=== PATIENT | female | born 1985 | race Caucasian/White ===

== ENCOUNTER 2021-11-22 14:01 | Outpatient (CLI) | payer BC, SELFPAY ==
--- NOTE | 2021-11-22 14:00 | CRLHL7_ITS ---
For Patients: As a result of the Century Cures Act, medical imaging exams and procedure reports are released immediately into your electronic medical record. You may view this report before your referring provider. If you have questions, please contact your health care provider. INDICATION: Dating and viability. LMP 09/26/2021. COMPARISON: None. TECHNIQUE: Real-time mcmahon-scale imaging of the pelvis was performed. FINDINGS: Sonographic imaging demonstrates a single living intrauterine gestation. The embryo has a regular cardiac rate measuring 161 beats per minute. The embryo`s crown-rump length measurement of 1.4 cm corresponds to a gestational age of 7 weeks 4 days with a sonographic due date of 07/07/2022. There is a normal-appearing yolk sac. The placenta has not yet developed. There is a 1.9 x 0.6 x 0.4 cm hypoechoic collection along the left aspect of the gestational sac compatible with a subchorionic hemorrhage. The cervix appears closed. The right ovary measures 4.3 x 2.4 x 3.9 cm and the left ovary measures 3.4 x 1.4 x 1.6 cm. Blood flow is seen within both ovaries. There are two anechoic cysts in the right ovary measuring 1.4 cm and 2.7 cm in size. Trace free fluid in the right adnexa. IMPRESSION: 1. Single living intrauterine gestation with crown rump length 1.4 cm which corresponds to a gestational age of 7 weeks 4 days with a sonographic due date of 07/07/2022. 2. The clinical gestational age by LMP is 8 weeks 1 day. 3. Small subchorionic hemorrhage. Dictated by Jody Glaser MD @ 11/22/2021 6:13:43 PM (Electronically Signed)
[2021-11-22 18:07] LABS: Hepatitis B Surface Antigen* Negative (Negative)
[2021-11-22 18:17] LABS: HIV 1/2/P24 Combo Screen* Negative (Negative)
[2021-11-22 18:25] LABS: Hepatitis C Virus Antibody* Negative (Negative)
[2021-11-25 02:38] LABS: Rapid Plasma Reagin (RPR) Non Reactive (Non Reactive)
== END 2021-11-22 14:02 | disposition home or self-care (01) ==
LOC: US 14:04
PROVIDERS: PCP Physician Assistant Medical; Visit Provider Registered Nurse
DX: Z34.91 Encounter for supervision of normal pregnancy, unspecified, first trimester (principal); O20.9 Hemorrhage in early pregnancy, unspecified; Z3A.08 8 weeks gestation of pregnancy
CPT/HCPCS: 36415; 76817; 86592; 86703; 86706; 86762; 86803; 86850; 86900; 86901; 87086

== ENCOUNTER 2021-12-31 08:00 | Outpatient (CLI) | payer BC, SELFPAY ==
--- NOTE | 2021-12-31 08:45 | CRLHL7_ITS ---
For Patients: As a result of the Century Cures Act, medical imaging exams and procedure reports are released immediately into your electronic medical record. You may view this report before your referring provider. If you have questions, please contact your health care provider. CLINICAL HISTORY: First trimester screening. TECHNIQUE: Real time mcmahon scale imaging of the fetus was performed using a transabdominal approach. FINDINGS: Sonographic imaging demonstrates a single living intrauterine gestation. The fetus demonstrates a regular cardiac rate measuring 159 beats per minute. The crown rump length measurement of 7.8 cm corresponds to a gestation of 13 weeks 6 days which is concordant with the earlier dating ultrasound. A nuchal translucency measurement of 1.3 mm was obtained for screening purposes. IMPRESSION: Nuchal translucency measurement obtained for first trimester screen. Dictated by Cassius Wilkins MD @ 12/31/2021 10:03:04 AM (Electronically Signed)
--- OUTSIDE RECORDS SUMMARY | 2022-01-03 08:22 | XMS_ITS | Encounter Summary ---
:1985 Author Organization [facility] Address [address] [place] [address] Care Team Providers Name Role Phone Sarah Montgomery PA-C Primary Care Provider Sarah Montgomery PA-C Unavailable [phone] Sarah Montgomery PA-C Unavailable [phone] Encounter Details Date Type Department Care Team Description 05/05/2018 Travel Social History Tobacco Use Types Packs/Day Years Used Date Former Smoker Smokeless Tobacco: Never Used Comments: quit about 2013 Alcohol Use Standard Drinks/Week Comments Yes 0 (1 standard drink = 0.6 oz pure alcoho l) weekends-not more than 4 Alcohol Habits Answer Date Recorded How often do you have a drink containing Not asked alcohol? How many drinks containing alcohol do you have Not asked on a typical day when you are drinking? How often do you have six or more drinks on Not asked one occasion? Comment: weekends-not more than 4 04/08/2018 Sex Assigned at Date Recorded Not on file documented as of this encounter Plan of Treatment Not on filedocumented as of this encounter Visit Diagnoses Not on filedocumented in this encounter Additional Health Concerns Assessment Noted Time PHQ-9 Depression Total Score: 1 09/22/2017 7:43 AM CDT documented as of this encounter Care Teams Trophy Assembler Relationship Specialty Start Date End Date Sarah Montgomery, PCP - General Family Practice 10/21/11 [address] [address] [place] [address] Sarah Montgomery, PCP - Assigned PCP 07/27/18 [address] [address] [place] [address] Sarah Montgomery, Assigned PCP 03/15/17 10/17/20 [address] [address] [place] [address] documented as of this encounter
--- OUTSIDE RECORDS SUMMARY | 2022-01-03 08:22 | XMS_ITS | Encounter Summary ---
:1985 Author Organization [facility] Address [address] [place] [address] Care Team Providers Name Role Phone Sarah Montgomery PA-C Primary Care Provider Sarah Montgomery PA-C Unavailable Sarah Montgomery PA-C Unavailable Reason for Visit Reason Comments Consult Follow-up after SVT ablatio n done Encounter Details Date Type Department Care Team Description 05/05/2018 Office Visit [facility] [place]; LDL GOAL LESS Heart WORK CHECKER THAN 160 (Primary Dx) Care-[address] [place] [id number] [place] [address] [address] [place] [address] [place], [place] [phone] (Work) [phone] Social History Tobacco Use Types Packs/Day Years [...] on file documented as of this encounter Last Filed Vital Signs Vital Sign Reading Time Taken Comments Blood Pressure 113/80 05/05/2018 12:36 PM RN CVOR Pulse 76 05/05/2018 12:36 PM RN CVOR Temperature - - Respiratory Rate - - Oxygen Saturation - - Inhaled Oxygen Concentration - - Weight 70.8 kg (156 lb) 05/05/2018 12:36 PM RN CVOR Height 167.6 cm (5' 6) 05/05/2018 12:36 PM RN CVOR Body Mass Index 25.18 05/05/2018 12:36 PM RN CVOR documented in this encounter Progress Quita Matthew APRN CNP - 05/05/2018 12:30 PM CST HPI: Rhonda Tamayo is a 32 year old female who is a patient of Dr. 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 In the past, shehad palpitations with a documented episode of regular narrow QRS tachycardia on an event monitor (11/2017). Today Rhonda Tamayo presents feeling good after her ablation which was 1 month ago. She states she does have intermittent palpitations which lasted a few seconds. She has not had any recurrence of tachycardia. Her femoral access site has healed nicely. She denies any chest discomfort or any femoral access discomfort. 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 She states she has recovered nicely from her ablation and denies any palpitations associated with extensive tachycardia. We did discuss that if the current palpitations that she has continue she can contact us or her PCP. At present her current palpitations last only seconds and overall do not bother h er. Plan: ?? Follow-up with cardiology as needed Patient expresses understanding and agreement with the plan. ?? I appreciate the chance to help with Rhonda Tamayo Please let me know if you have any questions or concerns. Quita Thacker APRN, WORK CHECKER This note was completed in part using [employer] voice recognition software. Although reviewed after completion, some word and grammatical errors may occur. Orders Placed This Encounter Procedures ??? EKG 12-lead complete w/read - Clinics (performed today) Orders Placed This Encounter Medications ??? [place]-3 Fatty Acids (FISH OIL) 500 MG CAPS Medications Discontinued During This Encounter Medication Reason ??? LORazepam (ATIVAN) 1 MG tablet Encounter Diagnosis Name Primary? CARDIOVASCULAR SCREENING; LDL GOAL LESS THAN 160 Yes CURRENT MEDICATIONS: Current Outpatient Medications Medication Sig Dispense Refill ??? fluticasone (FLONASE) 50 MCG/ACT spray [place] 1-2 sprays into both nostrils daily 16 g 0 ??? [place]-3 Fatty Acids (FISH OIL) 500 MG CAPS ??? valACYclovir (VALTREX) 500 MG tablet Take 1 tablet (500 mg) by mouth 2 times daily 6 tablet 3 ALLERGIES Allergies Allergen Reactions ??? Seasonal Allergies PAST MEDICAL HISTORY: Past Medical History: Diagnosis Date ??? abnormal pap 06/02, 09/2011 '09 HSIL, colp neg, '12:ELZBIETA I ??? Herpes valtrex ??? SVT (supraventricular tachycardia) (H) PAST SURGICAL HISTORY: Past Surgical History: Procedure Laterality Date ??? EP ABLATION SVT Inducible typical AVNRT.SVT ablation FAMILY HISTORY: Family History Problem Relation Age of Onset ??? Heart Disease Father [place] at age 42 ??? Depression Father ??? Cancer Maternal Grandmother cervical and uterine ??? Breast Cancer Maternal Grandmother dx at age 62 ??? Diabetes Maternal Grandfather ??? Diabetes Paternal Grandfather ??? Cancer - colorectal No family hx of SOCIAL HISTORY: Social History Socioeconomic History ??? Marital status: Single Spouse name: None ??? Number of children: None ??? Years of education: None ??? Highest education level: None Social Needs ??? Financial resource strain: None ??? Food insecurity - worry: None ??? Food insecurity - inability: None ??? Transportation needs - medical: None ??? Transportation needs - non-medical: None Occupational History ??? None Tobacco Use ??? Smoking status: Former Smoker ??? Smokeless tobacco: Never Used ??? Tobacco comment: quit about 2013 Substance and Sexual Activity ??? Alcohol use: Yes Comment: weekends-not more than 4 ??? Drug use: No ??? Sexual activity: Yes Partners: Male control/protection: None Other Topics Concern ??? Parent/sibling w/ CABG, [place] or angioplasty before 65F 55M? No Social History Narrative Single, lives with boyfriend. 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 Constitutional: cooperative, alert and oriented, well developed, well nourished, in no acute distress Skin: warm and dry to the touch, no apparent skin lesions or masses noted Head: normocephalic, no masses or lesions Eyes: pupils equal and round, conjunctivae and lids unremarkable, sclera white, no xanthalasma, EOMSintact, no nystagmus ENT: no pallor or cyanosis, dentition good Neck: carotid pulses are full and equal bilaterally, JVP normal, no carotid bruit Chest: normal breath sounds, clear to auscultation, normal A-P diameter, normal symmetry, normal respiratory excursion, no use of accessory muscles Cardiac: regular rhythm, normal S1/S2, no S3 or S4, apical impulse not displaced, no murmurs, gallops or rubs Abdomen: Vascular: pulses full and equal, no bruits auscultated Extremities and Back: no deformities, clubbing, cyanosis, erythema observed Neurological: no gross motor deficits Recent Lab Results: LIPID RESULTS: Lab Results Component Value Date CHOL 182 12/13/2012 HDL 87 12/13/2012 LDL 86 12/13/2012 TRIG 42 12/13/2012 CHOLHDLRATIO 2.1 12/13/2012 LIVER ENZYME RESULTS: Lab Results Component Value Date AST 9 10/05/2014 ALT 20 10/05/2014 CBC RESULTS: Lab Results Component Value Date WBC 5.8 04/08/2018 RBC 4.51 04/08/2018 HGB 14.1 04/08/2018 HCT 41.1 04/08/2018 MCV 91 04/08/2018 MCH 31.3 04/08/2018 MCHC 34.3 04/08/2018 RDW 12.6 04/08/2018 PLT 283 04/08/2018 BMP RESULTS: Lab Results Component Value Date NA 137 04/08/2018 POTASSIUM 3.4 04/08/2018 CHLORIDE 105 04/08/2018 CO2 26 04/08/2018 ANIONGAP 6 04/08/2018 GLC 74 04/08/2018 BUN 11 04/08/2018 CR 0.80 04/08/2018 GFRESTIMATED 84 04/08/2018 GFRESTBLACK >90 04/08/2018 RODRIGO 8.3 (L) 04/08/2018 A1C RESULTS: No results found for: A1C INR RESULTS: No results found for: INR CC No referring provider defined for this encounter. CVOR documented in this encounter Plan of Treatment Not on filedocumented as of this encounter Procedures Procedure Name Priority Date/Time Associated Diagnosis Comme nts EKG 12-LEAD COMPLETE Routine 05/05/2018 CARDIOVASCULAR SCREE POP; Results for this W/READ - CLINICS LDL GOAL LESS THAN 160 p rocedure are in the results section . documented in this encounter Results EKG 12-lead complete w/read - Clinics (performed today) (05/05/2018) Narrative This result has an attachment that is no t available. Quita Thacker APRN, CNP ECG ORDERABLES documented in this encounter Visit Diagnoses Diagnosis CARDIOVASCULAR SCREENING; LDL GOAL LESS THAN 160 - Primary documented in this encounter Additional Health Concerns Assessment Noted Time PHQ-9 Depression Total Score: 1 09/22/2017 7:43 AM CDT documented as of this encounter Care Teams Mobility Architect Manager Relationship Specialty Start Date End Date Sarah Montgomery PCP - General Family Practice 10/21/11 [address] [address] [place] [address] Sarah Montgomery PCP - Assigned PCP 07/27/18 [address] [address] [place] [address] Sarah Montgomery, Assigned PCP 03/15/17 10/17/20 [address] [address] [place] [address] documented as of this encounter
--- OUTSIDE RECORDS SUMMARY | 2022-01-03 08:22 | XMS_ITS | Encounter Summary ---
:1985 Author Organization [facility] Address [facility] [place] [address] Care Team Providers Name Role Phone Sarah Montgomery PA-C Primary Care Provider [phone] Sarah Montgomery PA-C Unavailable [phone] Sarah Montgomery PA-C Unavailable Reason for Visit Reason Comments Irregular Heart Beat review event monitor - Closed Specialty Diagnoses / Procedures Referred By Contact Refer red To Contact Diagnoses SVT (supraventricular tachycardia) (H) [facility] [address] [facility] [address] [place] [phone] Referral ID Status Reason Start Date Expiration Date Visits Requ ested Visits Authorized [id number] Closed 01/06/2018 01/06/2019 1 1 Encounter Details Date Type Department Care Team Description 01/07/2018 Office Visit [facility] IpMorris MD [address] [place] [address] SVT Heart Clinic Oleg Lang MD [address] [place] [place] [address] (supraventricular [address] [facility] tachycard ia) (H) [facility] [address] [place] [phone] Social History Tobacco Use Types Packs/Day Years Used Date Former Smoker Smokeless Tobacco: Never Used Alcohol Use Standard Drinks/Week Comments Yes 0 (1 standard drink = 0.6 oz pure alcoho l) weekends Alcohol Habits Answer Date Recorded How often do you have a drink containing alcohol? Not asked How many drinks containing alcohol do you have on a typical Not asked day when you are drinking? How often do you have six or more drinks on one occasion? No t asked Comment: weekends 10/12/2017 Sex Assigned at Date Recorded Not on file documented as of this encounter Last Filed Vital Signs Vital Sign Reading Time Taken Comments Blood Pressure 110/69 01/07/2018 1:03 PM CDT Pulse 84 01/07/2018 1:03 PM CDT Temperature - - Respiratory Rate - - Oxygen Saturation - - Inhaled Oxygen Concentration - - Weight 72.6 kg (160 lb) 01/07/2018 1:03 PM CDT Height 167.6 cm (5' 6) 01/07/2018 1:03 PM CDT Body Mass Index 25.82 01/07/2018 1:03 PM CDT documented in this encounter Progress Notes Oleg Sotelo MD - 01/07/2018 1:58 PM CDT Service Date: 01/07/2018 HISTORY OF PRESENT ILLNESS: It was my pleasure seeing Ms. Rhonda Kirkland for evaluation of SVT. Rhonda is a very pleasant 32-year-old female who came to the clinic today with her [id number] son, Adalberto. She has been referred by Dr. Villafuerte. For the past 2 years, Rhonda has had intermittent palpitation where her heart races for a few minutes. With that she sometimes becomes lightheaded. She has not fainted. She tells me it is an uncomfortable feeling. On one occasion she ended up in the emergency room in [place], but from what I gatherthe tachycardia had terminated by the time she was checked in. Later, she saw Dr. Villafuerte, and Morris ordered an outpatient groundwater monitoring technician. This had documented an episode of regular narrow QRS tachycardia. Episodes of tachycardia occur once per month on average. The patient is otherwise healthy and has nochronic medical conditions. She is a non-smoker and drinks alcohol socially. PHYSICAL EXAMINATION: VITAL SIGNS: Blood pressure 110/69, pulse 84 and regular, weight 72.6 kg, height 167 cm. GENERAL: She is a pleasant, healthy-appearing woman in no distress. HEENT: Normocephalic. NECK: Supple without bruits. LUNGS: Clear. CARDIOVASCULAR: Normal JVP, regular rhythm. No gallop, murmur or rub. ABDOMEN: Soft, nontender. Negative HJR. EXTREMITIES: No clubbing, cyanosis or edema. SKIN: No rash. BACK: No CVA tenderness. NEUROLOGIC: Alert and oriented x3. DIAGNOSTIC STUDIES: I have reviewed the existing diagnostic studies. Her ECG from 10/12/2017 was normal. No delta waves. Her echocardiogram from 11/2017 was normal. Her cardiac event monitor results were as per HPI. Finally, I note that the patient has normal thyroid function, chemistries and CBC. IMPRESSION & PLAN: 1. Paroxysmal supraventricular tachycardia. Ms. Kirkland has had paroxysmal SVT off and on for 3 years. The episodes typically last a few minutes but are significantly symptomatic causing lightheadedness. I went over the pathophysiology of SVT with the patient. I explained that SVT is not life-threatening though I am concerned about her lightheadedness during SVT. For treatment of SVT we discussed 3 options: a. Observation. b. Medical therapy with a daily drug. I would not recommend it in such a young patient. In addition,her blood pressure is soft. c. Catheter ablation of SVT. This is an excellent option that typically provides permanent cure fromSVT. She has a Class I indication for ablation. The likelihood of serious complication with the procedure is 1% to 1.5%. Potential risks include but are not limited to DVT, vascular injury, bleeding, cardiac perforation, phrenic nerve injury, injury to the AV conduction system requiring pacemaker implantation and other unforeseen complications. We had a good discussion. Rhonda was undecided regarding which way she wanted to proceed. She told me she would give the options some thought and call me back if she wishes to schedule catheter ablation or start a medication. I do appreciate the opportunity to be part of her care. OLEG SOTELO MD, FACC cc: [place] [address] MT: RASHAD Name: RHONDA KIRKLAND Account: [id number] : 1985 Service Date: 01/07/2018 Document: [id number] Oleg Sotelo MD - 01/07/2018 1:15 PM CDT HPI and Plan: See dictation No orders of the defined types were placed in this encounter. No orders of the defined types were placed in this encounter. There are no discontinued medications. Encounter Diagnosis Name Primary? SVT (supraventricular tachycardia) (H) CURRENT MEDICATIONS: Current Outpatient Prescriptions Medication Sig Dispense Refill ??? fluticasone (FLONASE) 50 MCG/ACT spray [place] 1-2 sprays into both nostrils daily 16 g 0 ??? LORazepam (ATIVAN) 1 MG tablet Take 1 mg by mouth every 6 hours as needed for anxiety ??? valACYclovir (VALTREX) 500 MG tablet Take 1 tablet (500 mg) by mouth 2 times daily 6 tablet 3 ALLERGIES Allergies Allergen Reactions ??? Seasonal Allergies PAST MEDICAL HISTORY: Past Medical History: Diagnosis Date ??? abnormal pap 06/02, 09/2011 '09 HSIL, colp neg, '12:ELZBIETA I ??? Herpes valtrex PAST SURGICAL HISTORY: Past Surgical History: Procedure Laterality Date ??? NO HISTORY OF SURGERY FAMILY HISTORY: Family History Problem Relation Age of Onset ??? HEART DISEASE Father [place] at age 42 ??? Depression Father ??? Cancer Maternal Grandmother cervical and uterine ??? Breast Cancer Maternal Grandmother dx at age 62 ??? Diabetes Maternal Grandfather ??? Diabetes Paternal Grandfather ??? Cancer - colorectal No family hx of SOCIAL HISTORY: Social History Social History ??? Marital status: Single Spouse name: N/A ??? Number of children: N/A ??? Years of education: N/A Social History Main Topics ??? Smoking status: Former Smoker ??? Smokeless tobacco: Never Used ??? Alcohol use Yes Comment: weekends ??? Drug use: No ??? Sexual activity: Yes Partners: Male control/ protection: None Other Topics Concern ??? Parent/Sibling W/ Cabg, [place] Or Angioplasty Before 65f 55m? No Social History Narrative Single, lives with boyfriend. 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 Review of Systems: Skin: Positive for bruising Eyes: Negative ENT: Negative Respiratory: Positive for shortness of breath when heart is racing, feels SOB Cardiovascular: Negative for;chest pain;edema Positive for;fatigue;palpitations;lightheadedness;dizziness Gastroenterology: Positive for nausea Genitourinary: Negative Musculoskeletal: Positive for joint pain;back pain see's chiropacter Neurologic: Negative Psychiatric: Positive for anxiety not dx Heme/Lymph/Imm: Positive for easy bruising;allergies Endocrine: Negative [id number] documented in this encounter Plan of Treatment Not on filedocumented as of this encounter Visit Diagnoses Diagnosis SVT (supraventricular tachycardia) (H) Other specified cardiac dysrhythmias documented in this encounter Additional Health Concerns Assessment Noted Time PHQ-9 Depression Total Score: 1 09/22/2017 7:43 AM CDT documented as of this encounter Care Teams Molder Punch Relationship Specialty Start Date End Date Sarah Montgomery PCP - General Family Practice 10/21/11 [address] [address] [place] [address] Sarah Montgomery, PCP - Assigned PCP 07/27/18 [address] [address] [place] [address] Sarah Montgomery, Assigned PCP 03/15/17 10/17/20 [address] [address] [place] [address] documented as of this encounter
--- OUTSIDE RECORDS SUMMARY | 2022-01-03 08:22 | XMS_ITS | Encounter Summary ---
:1985 Author Organization [facility] Address [address] [place] [address] Care Team Providers Name Role Phone Sarah Montgomery PA-C Primary Care Provider [phone] Sarah Montgomery PA-C Unavailable [phone] Sarah Montgomery PA-C Unavailable [phone] Encounter Details Date Type Department Care Team Description 04/07/2018 [facility] Ryan Bartholomew, RN [address] [place] [address] Social History Tobacco Use Types Packs/Day [...] documented as of this encounter Care Teams Drafter Civil Relationship Specialty Start Date End Date Sarah Montgomery, PCP - General Family Practice 10/21/11 [address] [address] [place] [address] Sarah Montgomery, PCP - Assigned PCP 07/27/18 [address] [address] [place] [address] Sarah Montgomery, Assigned PCP 03/15/17 10/17/20 [address] [address] [place] [address] documented as of this encounter
--- OUTSIDE RECORDS SUMMARY | 2022-01-03 08:22 | XMS_ITS | Encounter Summary ---
:1985 Author Organization [place] Address [facility] [place] [address] Care Team Providers Name Role Phone Sarah Montgomery PA-C Primary Care Provider + [phone] Reason for Visit Reason Comments Urgent Care Cough chest hurts when coughs, run ny nose- 3 days Encounter Details Date Type Department Care Team Description 12/01/[address] [facility] Michelle Patel Viral URI (Primary Dx); Urgent Care Philip Rios PA-C Throat pain [id number] [place] [address] [id number] Social History Tobacco Use Types Packs/Day Years [...] Assigned at Date Recorded Not on file COVID-19 Exposure Response Date Recorded In the last month, have you been in contact with No / Unsure 12/01/2020 1:23 PM CDT someone who was confirmed or suspected to have Coronavirus / COVID-19? 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 Patient Education Viral Upper Respiratory Illness (Adult) You have a viral upper respiratory illness (URI), which is another term for the common cold. This illness is contagious during the first few days. It is spread through the air by coughing and sneezing.It may also be spread by direct contact (touching the sick person and then touching your own eyes, nose, or mouth). Frequent handwashing will decrease risk of spread. Most viral illnesses go away within 7 to 10 days with rest and simple home remedies. Sometimes the illness may last for several weeks. Antibiotics will not kill a virus, and they are generally not prescribed for this condition. Home care ?? If symptoms are severe, rest at home for the first 2 to 3 days. When you resume activity, don't let yourself get too tired. ?? Don't smoke. If you need help stopping, talk with your healthcare provider. ?? Avoid being exposed to cigarette smoke (yours or others???). ?? You may use acetaminophen or ibuprofen to control pain and fever, unless another medicine was prescribed.??If you have chronic liver or kidney disease, have ever had a stomach ulcer or gastrointestinal bleeding, or are taking blood- thinning medicines, talk with your healthcare provider before usingthese medicines. Aspirin should never be given to anyone under 18 years of age who is ill with a viral infection or fever. It may cause severe liver or brain damage. ?? Your appetite may be poor, so a light diet is fine. Stay well hydrated by drinking 6 to 8 glassesof fluids per day (water, soft drinks, juices, tea, or soup). Extra fluids will help loosen secretions in the nose and lungs. ?? Wzhd-yqs-kngjaye cold medicines will not shorten the length of time you???re sick, but they may be helpful for the following symptoms: cough, sore throat, and nasal and sinus congestion. If you takeprescription medicines, ask your healthcare provider or pharmacist which tvry-bwd-prziemp medicines are safe to use. (Note: Don't use decongestants if you have high blood pressure.) Follow-up care Follow up with your healthcare provider, or as advised. When to seek medical advice Call your healthcare provider right away if any of these occur: ?? Cough with lots of colored sputum (mucus) ?? Severe headache; face, neck, or ear pain ?? Difficulty??swallowing??due to throat pain ?? Fever of 100.4??F (38??C) or higher, or as directed by your healthcare provider Call 911 Call 911 if any of these occur: ?? Chest pain, shortness of breath, wheezing, or difficulty breathing ?? Coughing up blood ?? Very severe pain with swallowing, especially if it goes along with a muffled voice [employer] last reviewed this educational content on 10/23/2017 ?? [id number] [employer]. All rights reserved. This information is not intended as a substitute for professional medical care. Always follow your healthcare professional's instructions. Patient Education After Your COVID-19 (Coronavirus) Test You have been tested for COVID-19 (coronavirus). If you'll have surgery in the next few days, we'll let you know ahead of time if you have the virus.Please call your surgeon's office with any questions. For all other patients: Results are usually available in [employer] within 2 to 3 days. If you do not have a [employer] account, you'll get a letter in the mail in about 7 to 10 days. Navitahart is often the fastest way to get test results. Please sign up if you do not already have a Br[employer] account. See the handout Getting COVID-19 Test Results in Bracketz for help. What if my test result is positive? If your test is positive and you have not viewed your result in Bracketz, you'll get a phone call with your result. (A positive test means that you have the virus.) ?? Follow the tips under How do I self-isolate? below for 10 days (20 days if you have a weak immune system). ?? You don't need to be retested for COVID-19 before going back to school or work. As long as you'refever-free and feeling better, you can go back to school, work and other activities after waiting the 10 or 20 days. What if I have questions after I get my results? If you have questions about your results, please visit our testing website at [email or web address]. After 7 to 10 days, if you have not gotten your results: ?? Call ([phone]) and ask to speak with our COVID-19 results team. ?? If you're being treated at an infusion center: Call your infusion center directly. What are the symptoms of COVID-19? Cough, fever and trouble breathing are the most common signs of COVID-19. Other symptoms can include new headaches, new muscle or body aches, new and unexplained fatigue (feeling very tired), chills, sore throat, congestion (stuffy or runny nose), diarrhea (loose poop), lossof taste or smell, belly pain, and nausea or vomiting (feeling sick to your stomach or throwing up). You may already have symptoms of COVID-19, or they may show up later. What should I do if I have symptoms? If you're having surgery: Call your surgeon's office. For all other patients: Stay home and away from others (self-isolate) until ... ?? You've had no fever--and no medicine that reduces fever--for 1 full day (24 hours), AND ?? Other symptoms have gotten better. For example, your cough or breathing has improved, AND ?? At least 10 days have passed since your symptoms first started. How do I self-isolate? ?? Stay in your own room, even for meals. Use your own bathroom if you can. ?? Stay away from others in your home. No hugging, kissing or shaking hands. No visitors. ?? Don't go to work, school or anywhere else. ?? Clean high touch surfaces often (doorknobs, counters, handles). Use household cleaning spray orwipes. You'll find a full list of rn invasive on the EPA website: www.epa.gov/pesticide-registration/lis r-n-cvelioiiskpce-egc-hnkarzy-gnnw-cov-2. ?? Cover your mouth and nose with a mask or other face covering to avoid spreading germs. ?? Wash your hands and face often. Use soap and water. ?? Caregivers in these groups are at risk for severe illness due to COVID-19: ? People 65 years and older ? People who live in a long-term or long-term care facility ? People with chronic disease (lung, heart, cancer, diabetes, kidney, liver, immunologic) ? People who have a weakened immune system, including those who: ?? Are in cancer treatment ?? Take medicine that weakens the immune system, such as corticosteroids ?? Had a bone marrow or organ transplant ?? Have an immune deficiency ?? Have poorly controlled HIV or AIDS ?? Are obese (body mass index of 40 or higher) ?? Smoke regularly ?? Caregivers should wear gloves while washing dishes, handling laundry and cleaning bedrooms and bathrooms. ?? Use caution when washing and drying laundry: Don't shake dirty laundry and use the warmest water setting that you can. ?? For more tips on managing your health at home, go to www.cdc.gov/coronavirus/2019-ncov/downloads/10Things.pdf. How can I take care of myself at home? 1. Get lots of rest. Drink extra fluids (unless a doctor has told you not to). 2. Take Tylenol (acetaminophen) for fever or pain. If you have liver or kidney problems, ask your family doctor if it's OK to take Tylenol. Adults can take either: ? 650 mg (two 325 mg pills) every 4 to 6 hours, or? 1,000 mg (two 500 mg pills) every 8 hours as needed. ? Note: Don't take more than 3,000 mg in one day. Acetaminophen is found in many medicines (both prescribed and agod-hgn-mmawxsw medicines). Read all labels to be sure you don't take too much. For children, check the Tylenol bottle for the right dose. The dose is based on the child's age or weight. 3. If you have other health problems (like cancer, heart failure, an organ transplant or severe kidney disease): Call your specialty clinic if you don't feel better in the next 2 days. 4. Know when to call 911. Emergency warning signs include: ? Trouble breathing or shortness of breath ? Chest pain or pressure that doesn't go away ? Feeling confused like you haven't felt before, or not being able to wake up ? Bluish-colored lips or face 5. If your doctor prescribed a blood thinner medicine: Follow their instructions. Where can I get more information? ?? [facility] - About COVID-19: [email or web address] ?? CDC - If You're Sick: cdc.gov/coronavirus/2019-ncov/about/jhbnf-pphx-khpv.html ?? CDC - Ending Home Isolation: www.cdc.gov/coronavirus/2019-ncov/hcp/ofikdnrlhbo-ut-qnzv-patients.html ?? CDC - Caring for Someone: www.cdc.gov/coronavirus/2019-ncov/pb-fgu-ofh-sick/jowy-cvw-xiznwjp.html ?? [facility] - Interim Guidance for Hospital Discharge to Home: www.health.[facility].[place]/diseases/coronavirus/hcp/hospdischarge.pdf ?? [facility] clinical trials (COVID-19 research studies): clinicalaffairs.[facility]/lql-lfpnmpbi-ojoiqq ?? Below are the COVID-19 hotlines at the [facility] ([facility]). Interpreters are available. ? For health questions: Call [phone] or (7 a.m. to 7 p.m.) ? For questions about schools and childcare: Call [phone] or (7 a.m. to 7 p.m.) For informational purposes only. Not to replace the advice of your health care provider. Clinically reviewed by Infection Prevention and the [facility] COVID-19 Clinical Team. Copyright ?? 2020 [facility]. All rights reserved. [employer] [id number] - Rev 04/04/20. Patient Education Self-Care for Sore Throats?? Sore throats happen for many reasons, such as colds, allergies, cigarette smoke, air pollution, and infections caused by viruses or bacteria. In any case, your throat becomes red and sore. Your goal for self-care is to reduce your discomfort while giving your throat a chance to heal. Moisten and soothe your throat Tips include the following: ?? Try a sip of water first thing after waking up. ?? Keep your throat moist by drinking??6 or more glasses of clear liquids every day. ?? Run a cool-air humidifier in your room overnight. ?? Stay away from cigarette smoke.? Check the air quality index,if air pollution gives you a sore throat. On high pollution days, tryto limit outdoor time. ?? Suck on throat lozenges, cough drops, hard candy, ice chips, or frozen fruit- juice bars. Use the sugar-free versions if your diet or medical condition requires them. Gargle to ease irritation Gargling every hour or??2 can ease irritation. Try gargling with??1 of these solutions: ?? 1/4??teaspoon of salt in??1/2 cup of warm water ?? An ulco-tgs-ioyaqto anesthetic gargle Use medicine for more relief Romo-hth-qunbuqv medicine can reduce sore throat symptoms. Ask your pharmacist if you have questionsabout which medicine to use. To prevent possible medicine interactions, let the pharmacist know whatmedicines you take. To decrease symptoms: ?? Ease pain with anesthetic sprays. Aspirin or an aspirin substitute also helps. Remember, never give aspirin to anyone 18 or younger. Don't take aspirin if you are already??taking blood thinners.? For sore throats caused by allergies, try antihistamines to block the allergic reaction. Unless a sore throat is caused by a bacterial infection, antibiotics won???t help you. Prevent future sore throats Prevention tips include: ?? Stop smoking or reduce contact with secondhand smoke. Smoke irritates the tender throat lining. ?? Limit contact with pets and with allergy-causing substances, such as pollen and mold. ?? Wash your hands often when you???re around someone with a sore throat or cold. This will keep viruses or bacteria from spreading. ?? Limit outdoor time when air pollution is bad. ?? Don???t strain your vocal cords. When to call your healthcare provider Contact your healthcare provider if you have: ?? Fever of 100.4??F (38.0??C) or higher, or as directed by your healthcare provider ?? White spots on the throat ?? Great Trouble swallowing ?? A skin rash ?? Recent exposure to someone else with strep bacteria ?? Severe hoarseness and swollen glands in the neck or jaw Call 911 Call 911 if any of the following occur: ?? Trouble breathing or catching your breath ?? Drooling and problems swallowing ?? Wheezing ?? Unable to talk ?? Feeling dizzy or faint ?? Feeling of doom [employer] last reviewed this educational content on 01/23/2019 ?? [id number] [employer]. All rights reserved. This information is not intended as a substitute for professional medical care. Always follow your healthcare professional's instructions. documented in this encounter Progress Notes Michelle Patel PA-C - 12/01/2020 1:25 PM CDT Assessment & Plan Viral URI Onset of symptoms 2 days ago. Lungs are clear on exam. She is in no acute distress. Vitals are reassuring. Recommended supportive cares. OTC cough medication as needed. Will anticipate gradual improvement. Symptomatic Covid PCR swab done in clinic today. Awaiting COVID-19 PCR result. If result return p ositive will need to self quarantine for 10 days or until 24 hrs after symptoms resolve (whichever comes first). Follow-up if any worsening symptoms. Patient agrees. Throat pain Rapid strep is negative today. Throat culture is pending. Supportive care measures advised. We will communicate any positive finding on the throat culture result. Follow-up if any worsening symptoms. Patient understands and agrees with the plan. - Symptomatic COVID-19 Virus (Coronavirus) by PCR - Streptococcus A Rapid Scr w Reflx to PCR - Group A Streptococcus PCR Throat Swab Return in about 1 week (around 12/08/2020) for Symptoms failing to improve. Michelle Patel PA-C [facility] Ellis is a 35 year old female who presents to clinic today for the following health issues: Chief Complaint Patient presents with ??? Urgent Care ??? Cough chest hurts when coughs, runny nose- 3 days HPI URI Adult Onset of symptoms was 2 day(s) ago. Course of illness is same. Severity moderate Current and Associated symptoms: non productive cough, sore throat with cough, runny nose started today Denies: fever, chills, ear pain, headache, body aches, vomiting and diarrhea, chest pain, sob Treatment measures tried include OTC Cough med-- Mucinex. Predisposing factors include ill contact: Family member--3 month old baby with similar symptoms. No obvious exposure to anyone with Covid or strep. Not vaccinated for Covid. Review of Systems Constitutional, HEENT, cardiovascular, pulmonary, gi and gu systems are negative, except as otherwise noted. Objective BP 110/60 (BP Location: Right arm) Pulse 92 Temp 98.3 ??F (36.8 ??C) (Tympanic) Wt 80.3 kg (177 lb) SpO2 97% BMI 28.57 kg/m?? Physical Exam GENERAL: healthy, alert and no distress EYES: conjunctivae and sclerae normal HENT: ear canals and TM's normal, nose and mouth without ulcers or lesions, throat is moist and pink NECK: no adenopathy RESP: lungs clear to auscultation - no rales, rhonchi or wheezes CV: regular rate and rhythm, normal S1 S2 SKIN: no suspicious lesions or rashes Results for orders placed or performed in visit on 12/01/20 (from the past 24 hour(s)) Streptococcus A Rapid Scr w Reflx to PCR Specimen: Throat Result Value Ref Range Strep Specimen Description Throat Streptococcus Group A Rapid Screen Negative NEG^Negative documented in this encounter Plan of Treatment Not on filedocumented as of this encounter Procedures Procedure Name Priority Date/Time Associated Comments Diagnosis SARS-COV-2 (COVID-19) Routine 12/01/2020 1:38 PM Viral URI Results for this VIRUS RT-PCR CDT procedure are i n the results section. COVID-19 VIRUS Routine 12/01/2020 1:38 PM Throat pain Results for this (CORONAVIRUS) BY PCR CDT procedu re are in the results section. STREPTOCOCCUS A RAPID Routine 12/01/2020 1:38 PM Throat pain Results for this SCREEN W REFELX TO PCR CDT proce dure are in the results section. GROUP A STREPTOCOCCUS Routine 12/01/2020 1:38 PM Throat pain Results for this PCR THROAT SWAB CDT procedure ar e in the results section. documented in this encounter Results SARS-CoV-2 COVID-19 Virus (Coronavirus) by PCR (12/01/2020 1:38 PM CDT) [facility] Method Time Signature SARS-CoV-2 Nasopharyngeal 12/02/2020 INFECTIOUS Virus 11:19 AM DISEASES Specimen CDT DIAGNOSTIC Source LABORATORY, [facility] SARS-CoV-2 NEGATIVE 12/02/2020 INFECTIOUS PCR Result 11:19 AM DISEASES CDT DIAGNOSTIC LABORATORY, [facility] Comment: SARS-CoV2 (COVID-19) RNA not de tected, presumed negative. SARS-CoV-2 PCR Testing was performed using the Aptima SARS-CoV-2 Assay on the Pulsity Instrument System. 12/02/2020 11:19 AM INFECTI OUS DISEASES Comment Additional information about this Emergency Use Authorization (EUA) assay can be found via T DIAGNOSTIC the Lab Guide. LABORATORY, [facility] Comment: This test should be ordered for the dete ction of SARS-CoV-2 in individuals who meet SARS-CoV-2 clinical and/or epidemi ological criteria. Test performance is unknown in asymptomatic patients. This test is for in vitro diagnostic use under the FDA EUA for laboratories certified under CLIA to perform high com plexity testing. This test has not been FDA cleared or approved. A negative result does not rule out the presence of PCR inhibitors in the specimen or target RNA in concentration below the limit of detection for the assay. The possibility of a false negati ve should be considered if the patient's recent exposure or clinical pr esentation suggests COVID-19. This test was validated by the [facility] Infectious [facility] Diagnostic [facility]. This laboratory i s certified under the Clinical Laboratory Improvement Amendments of 198 8 (CLIA-88) as qualified to perform high complexity laboratory testing. Specimen (Source) Anatomical Collection Method Collection Time Re ceived Time Location / / Volume Laterality Specimen from 12/01/2020 1:38 12/01/2020 nasopharyngeal PM CDT 1:39 PM CDT structure (specimen) Karley Britton MD LAB - MICRO GENERAL ORDERABL ES Performing Organization Address City/State/ZIP Code Phon e Number INFECTIOUS DISEASES DIAGNOSTIC [address] [facility] [address] [address] LABORATORY, [facility] Group A Streptococcus PCR Throat Swab (12/01/2020 1:38 PM CDT[facility] Method Time Signature Specimen Throat 12/01/2020 [place] Description 2:01 PM CDT [facility] Strep Group A Not Detected NDET^Not 12/01/2020 [place] PCR Detected 9:58 PM CDT [facility] Comment: Group A Streptococcus DNA is not detecte d. FDA approved assay performed using [employer] GeneXpert real-time PCR. Specimen Anatomical Collection Method Collection Time Receive d Time (Source) Location / / Volume Laterality Specimen from 12/01/2020 1:38 PM 12/02/19 21 1:39 throat CDT PM CDT (specimen) Karley Britton MD LAB - MICRO GENERAL ORDERABL ES Performing Organization Address City/State/ZIP Code Phon e Number [facility] [address] [place] [address] [facility] [address] [place] [address] Streptococcus A Rapid Scr w Reflx to PCR (12/01/2020 1:38 PM CDT) [facility] Method Time Signature Strep Specimen Throat 12/01/2020 [place] Description 1:39 PM CDT [facility] Streptococcus Negative NEG^Negat 12/01/2020 [place] Group A Rapid yovany 2:01 PM CDT [facility] Comment: No Group A streptococcal antigen detecte d by immunoassay. Confirmatory testing in progress. Specimen Anatomical Collection Method Collection Time Receive d Time (Source) Location / / Volume Laterality Specimen from 12/01/2020 1:38 PM 12/02/19 21 1:39 throat CDT PM CDT (specimen) Karley Britton MD LAB - MICRO GENERAL ORDERABL ES Performing Organization Address City/[facility]/ZIP Code Phon e Number [facility] [address] [place] [address] Symptomatic COVID-19 Virus (Coronavirus) by PCR (12/01/2020 1:38 PM CDT) Component Value Ref Test Analysis Performed At [facility] Range Method Time Signature COVID-19 Nasopharyngeal 12/01/2020 [place] Virus PCR to 1:39 PM CDT CLINICS [facility] Source COVID-19 Test received-See 12/01/2020 INFECTIOUS Virus PCR to reflex to IDDL 8:15 PM CDT DISEASES [facility] - test SARS CoV2 DIAGNOSTIC Result (COVID-19) Virus LABORATORY, RT-PCR [facility] Specimen (Source) Anatomical Collection Method Collection Time Re ceived Time Location / / Volume Laterality Specimen from 12/01/2020 1:38 12/01/2020 nasopharyngeal PM CDT 1:39 PM CDT structure (specimen) Karley Britton MD LAB - MICRO GENERAL ORDERABL ES Performing Organization Address City/State/ZIP Code Phon e Number INFECTIOUS DISEASES DIAGNOSTIC [address] [facility] [address] [address] LABORATORY, [facility] [address] 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
--- OUTSIDE RECORDS SUMMARY | 2022-01-03 08:22 | XMS_ITS | Encounter Summary ---
:1985 Author Organization [facility] Address [address] [place] [address] Care Team Providers Name Role Phone Sarah Montgomery PA-C Primary Care Provider Sarah Montgomery PA-C Unavailable Sarah Montgomery PA-C Unavailable Reason for Visit Reason Comments Follow Up HP for SVT ablation Encounter Details Date Type Department Care Team Description 04/07/2018 [facility] BURIAL VAULT MAKER tachycardia (H) (Primary Care-[address] AVKerri Dx) [address] [facility] [address] [place] [address] [place], [place] [phone] (Work) [phone] Social History Tobacco Use Types Packs/Day Years [...] Sign Reading Time Taken Comments Blood Pressure 110/80 04/07/2018 3:16 PM DIGITAL MEASUREMENT ADVISOR Pulse 88 04/07/2018 3:16 PM DIGITAL MEASUREMENT ADVISOR Temperature - - Respiratory Rate - - Oxygen Saturation - - Inhaled Oxygen Concentration - - Weight 71.1 kg (156 lb 12.8 oz) 04/07/2018 3:16 PM DIGITAL MEASUREMENT ADVISOR Height 167.6 cm (5' 6) 04/07/2018 3:16 PM DIGITAL MEASUREMENT ADVISOR Body Mass Index 25.31 04/07/2018 3:16 PM DIGITAL MEASUREMENT ADVISOR documented in this encounter Patient Instructions Patient InstructionsStQuita thakur APRN CNP - 04/07/2018 3:10 PM DIGITAL MEASUREMENT ADVISOR As always, thank you for trusting us with your health care needs! If you have any questions regarding your visit please contact your care team: Cardiology Telephone Number Afib RNs: Thelma Vaca and Shahnaz [phone] Call for Electrophysiology procedure scheduling concerns [phone] Device Clinic (Pacemakers, ICDs, Loop Recorders) RN's: Liz Diaz Lynda, MJ, Stephanie, Sue During business hours: [phone] TAL MEASUREMENT ADVISOR documented in this encounter Progress Notes Quita Thacker APRN CNP - 04/07/2018 3:10 PM CST HPI: Rhonda Tamayo is a 32 year old female who is a patient of Dr. Roblero and presents today for H&P for SVT ablation. Her past medical history includes palpitations with a documented episode of regular narrow QRS tachycardia on an event monitor (11/2017). She is a non-smoker and drinks alcohol socially. 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 ECHO (10/2017) was normal. Today Rhonda Tamayo presents with continued episodes of tachycardia which she has to stop what she is doing and lie down. Otherwise she has no concerns or complaints. ASSESSMENT AND PLAN Paroxysmal supraventricular tachycardia. We discussed the pathophysiology of SVT and treatment. She would like to pursue an ablation. We discussed the risks and complications which include a 1% to 1.5% change of major complications. Potentialrisks include but are not limited to DVT, vascular injury, bleeding, cardiac perforation, phrenic nerve injury, injury to the AV conduction system requiring pacemaker implantation and other unforeseen complications. She is agreeable to proceeding with the procedure and tHe consent will be signed by the procedural physician. Patient expresses understanding and agreement with the plan. ?? I appreciate the chance to help with Rhonda Tamayo Please let me know if you have any questions or concerns. Quita Thacker, CLERK STENOGRAPHER, BURIAL VAULT MAKER This note was completed in part using [employer] voice recognition software. Although reviewed after completion, some word and grammatical errors may occur. No orders of the defined types were placed in this encounter. No orders of the defined types were placed in this encounter. There are no discontinued medications. No diagnosis found. CURRENT MEDICATIONS: Current Outpatient Prescriptions Medication Sig Dispense Refill ??? fluticasone (FLONASE) 50 MCG/ACT spray [place] 1-2 sprays into both nostrils daily 16 g 0 ??? valACYclovir (VALTREX) 500 MG tablet Take 1 tablet (500 mg) by mouth 2 times daily 6 tablet 3 ??? LORazepam (ATIVAN) 1 MG tablet Take 1 mg by mouth every 6 hours as needed for anxiety ALLERGIES Allergies Allergen Reactions ??? Seasonal Allergies PAST MEDICAL HISTORY: Past Medical History: Diagnosis Date ??? abnormal pap 06/02, 09/2011 '09 HSIL, colp neg, '12:ELZBIETA I ??? Herpes valtrex PAST SURGICAL HISTORY: Past Surgical History: Procedure Laterality Date ??? NO HISTORY OF SURGERY FAMILY HISTORY: Family History Problem Relation Age of Onset ??? HEART DISEASE Father NE at age 42 ??? Depression Father ??? [...] Single, lives with boyfriend. 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 No BMI 25.31 kg/m2 Constitutional: cooperative, alert and oriented, well developed, [...] displaced, no murmurs, gallops or rubs Abdomen: abdomen soft, non-tender, BS normoactive, no mass, no HSM, no bruits Vascular: pulses full and equal, no bruits [...] RESULTS: Lab Results Component Value Date WBC 6.0 10/08/2017 RBC 4.83 10/08/2017 HGB 14.6 10/08/2017 HCT 43.5 10/08/2017 MCV 90 10/08/2017 MCH 30.2 10/08/2017 MCHC 33.6 10/08/2017 RDW 12.9 10/08/2017 PLT 306 10/08/2017 BMP RESULTS: Lab Results Component Value Date NA 139 05/24/2015 POTASSIUM 3.7 05/24/2015 CHLORIDE 105 05/24/2015 CO2 27 05/24/2015 ANIONGAP 7 05/24/2015 GLC 88 05/24/2015 BUN 8 05/24/2015 CR 0.72 05/24/2015 GFRESTIMATED >90 Non GFR Calc 05/24/2015 GFRESTBLACK >90 GFR Calc 05/24/2015 RODRIGO 8.7 05/24/2015 A1C RESULTS: No results found for: A1C INR RESULTS: No results found for: INR CC No referring provider defined for this encounter. TAL MEASUREMENT ADVISOR documented in this encounter Plan of Treatment Not on filedocumented as of this encounter Visit Diagnoses Diagnosis Paroxysmal supraventricular tachycardia (H) - Primary Paroxysmal supraventricular tachycardia documented in this encounter Additional Health Concerns Assessment Noted Time PHQ-9 Depression Total Score: 1 09/22/2017 7:43 AM CDT documented as of this encounter Care Teams Mba Internship Relationship Specialty Start Date End Date Sarah Montgomery PCP - General Family Practice 10/21/11 [address] [address] [place] [address] Sarah Montgomery PCP - Assigned PCP 07/27/18 [address] [address] [place] [address] Sarah Montgomery, Assigned PCP 03/15/17 10/17/20 [address] [address] [place] [address] documented as of this encounter
--- OUTSIDE RECORDS SUMMARY | 2022-01-03 08:22 | XMS_ITS | Encounter Summary ---
:1985 Author Organization [facility] Address [address] [place] [address] Care Team Providers Name Role Phone Sarah Montgomery PA-C Primary Care Provider Sarah Montgomery PA-C Unavailable Sarah Montgomery PA-C Unavailable Reason for Visit Reason Onset Date Comments Clinic Care Coordination - Initial 04/07/2018 SVT A blation Encounter Details Date Type Department Care Team Description 04/07/2018 Telephone [facility] Heart Thelma Bartholomew C linic Care Coordination Clinic Piper RN - Initial (SVT Ablation) [address] [place] [address] [place] [phone] Social History Tobacco Use Types Packs/Day [...] on file documented as of this encounter Miscellaneous Notes Telephone Encounter - Thelma Bartholomew RN - 04/07/2018 2:44 PM CST LM for pt to call back with questions or concerns prior to SVT Ablation tomorrow. Pt is not diabeticor on a diuretic. Arrival time is 0630. After review of Epic pt is going to see Quita today at 1510. JNelsonRN ENTRATOR OPERATOR documented in this encounter Plan of Treatment Not on filedocumented as of this encounter Visit Diagnoses Not on filedocumented in this encounter Additional Health Concerns Assessment Noted Time PHQ-9 Depression Total Score: 1 09/22/2017 7:43 AM CDT documented as of this encounter Care Teams Education General Manager Relationship Specialty Start Date End Date Sarah Montgomery, PCP - General Family Practice 10/21/11 [address] [address] [place], [place] [id number] Sarah Montgomery, PCP - Assigned PCP 07/27/18 [address] [address] [place] [address] Sarah Montgomery, Assigned PCP 03/15/17 10/17/20 [address] [address] [place] [address] documented as of this encounter
--- OUTSIDE RECORDS SUMMARY | 2022-01-03 08:22 | XMS_ITS | Encounter Summary ---
:1985 Author Organization [facility] Address [facility] [place] [address] Care Team Providers Name Role Phone Sarah Montgomery PA-C Primary Care Provider [phone] Sarah Montgomery PA-C Unavailable Sarah Montgomery PA-C Unavailable Reason for Referral CV Testing - Closed Specialty Diagnoses / Procedures Referred By Contact Refer red To Contact Cardiology Diagnoses SVT (supraventricular tachycardia) (H) Breanna Roblero Sh Heart Cath L ab Procedures EP Ablation SVT EP Ablation Procedures MD [place] [address] [place] [phone] [place] [address] Referral ID Status Reason Start Date Expiration Date Visits Requ ested Visits Authorized [id number] Closed 02/19/2018 02/19/2019 1 1 Reason for Visit Reason Onset Date Comments Procedure 02/17/2018 SVT ablation Encounter Details Date Type Department Care Team Description 02/17/2018 Telephone [facility] Heart Lydia Rosado, Procedure (SVT ablation) Clinic Piper [facility] [address] [facility] [address] [place] [phone] Social History Tobacco [...] documented as of this encounter Miscellaneous Notes Addendum Note - Lydia Rosado RN - 02/19/2018 1:49 PM CDT Addended by: LYDIA ROSADO on: 02/19/2018 01:49 PM Modules accepted: Orders, SmartSet Telephone Encounter - Lydia Rosado RN - 02/19/2018 1:46 PM CDT Patient returned call and needs to move ablation to 04/08 d/t conflict in scheduling. H&P set upfor 04/07 in [place] with LEO Lala. Appointment reminder sent to patient. KELLIE Johansen Telephone Encounter - Lydia Rosado RN - 02/19/2018 11:16 AM CDT Left message x2 with patient to confirm if she is going to proceed with SVT ablation as discussed on02/17. Current hold for 03/11. Awaiting return call. KELLIE Johansen Telephone Encounter - Lydia Rosado RN - 02/17/2018 2:56 PM CDT Received call from scheduling team indicating patient had called to schedule SVT ablation. Called patient to discuss further. Patient indicated she has been having more palpitations and wants to proceed with recommended procedure that was discussed at last OV with Dr Roblero on 01/07. Will put a hold on 03/11 per patient request. Will obtain orders per Dr Roblero. Informed patient that she will need to come in prior to procedure for H&P. Patient provided verbal understanding of above and will call back tomorrow (02/18) to confirm. KELLIE Johansen documented in this encounter Plan of Treatment Not on filedocumented as of this encounter Results EP Ablation SVT (04/08/2018 9:43 AM PLATE SLITTER AND INSPECTOR) Anatomical Region Laterality Modality Other Specimen (Source) Anatomical Location Collection Method / Collectio n Time Received Time / Laterality Volume Narrative 04/08/2018 10:29 AM PLATE SLITTER AND INSPECTOR Breanna Roblero MD ? 04/08/2018 10:29 AM PROCEDURES PERFORMED: 1. Comprehensive electrophysiology study with arrhythmia induction. 2. ??Left atrial recording and pacing vi a the coronary sinus. 3. ??Electrophysiology study under drug infusion. 4. ??3D cardiac mapping. 5. ??Catheter ablation of SVT. 6. ??Cardiac fluoroscopy (3.9 minutes). 7. ??Conscious sedation. ??Versed 6 mg, fentanyl 200 mcg. ??Total sedation time was 80 minutes. ?? CLINICAL HISTORY: 32 yo female with symptomatic paroxysmal SVT. ??She has consented to undergo EP study and SVT ablation. ?? PROCEDURE: The patient was brought to the Cardiac E lectrophysiology Laboratory at [facility] on 04/08/2018. ??I determined this patient to be an appropr iate candidate for the planned sedation and procedure and have reassessed the patient immediately prior to sedation and proced ure. ??The patient was in the fasting, nonsedated state. ??Informe d consent had been obtained. ??We continuously monitored vi portia signs, oxygenation and level of sedation. ??The patient was juan antonio patsy on the procedure table and the groin areas were prepped and ped in the usual sterile fashion. ??Under 1% lidocaine for local anesthesia 3 sheaths were introduced in the right femoral vein. ?? Under fluoroscopic guidance the followin g catheters were introduced: a. A steerable decapolar catheter was br ought in the coronary sinus. b. A standard quadripolar catheter was b rought in the right ventricle. c. A standard quadripolar catheter was b rought in the His bundle position. d. For mapping and ablation we used a Bi Hearsay.itense Navistar catheter with F/J curve and 4 mm tip. Measurements and pacing protocols were p erformed as outlined in the results section of this report. ?? The patient had inducible typical AVNRT. ??Once the mechanism of t achycardia was confirmed we proceeded with catheter ablation of t he AV node slow pathway. Following catheter ablation, extensive p acing protocols were performed to re-induce the arrhythmia. ? ?The arrhythmia was no longer inducible. ??30 minutes after the final ablation all catheters and sheaths were removed and h emostasis was obtained with manual pressure. ??There were no ap parent complications. ??The patient was brought back to the hospital room in stable condition. Estimated blood loss was 15 ml. ?? RESULTS: (I) ELECTROCARDIOGRAM: ??Normal ECG, no ventricular pre-excitation. (II) BASIC INTERVALS IN THE BASELINE STA TE (measured in msec): RR: 660 WI: 117 QRS: 92 QT: 368 AH: 60 HV: 37 (III) ANTEGRADE CONDUCTION PROPERTIES: Following incremental pacing in the RA ( CS os) there was 1:1 AV conduction at 360 msec with Wenckebach-t ype AV conduction occurring at [address] at 600 msec the A V node ERP was 300 msec. ?? There was evidence of dual AV node physi ology with AH interval jump of 60 msec with S1/S2 in the RA. ?? (IV) RETROGRADE CONDUCTION PROPERTIES: Following ventricular pacing from the RV apex, there was 1:1 VA conduction with etrograde atrial activat ion being concentric and decremental, consistent with conduction via the normal AV node/His Purkinje system. ??SVT was repr oducibly induced with V-pacing. ?? (V) MEDICATIONS USED: Isoproterenol, up to 2 mcg/min, was used to help induce tachycardia post ablation. () ARRHYTHMIAS SEEN OR INDUCED: 1. ??Typical AVNRT. ??Easily inducible w ith V-pacing. ??Average HR in the 150s. ??Irregular supraventricula r tachycardia with very short VA time and spontaneous terminatio n in the AV node (final atrial EGM). ??Consistent with multiple antegrade slow pathways. (VII) MAPPING AND ABLATION: A detailed 3D map of the RA was construc zeke using CARTO. ??We targeted the slow pathway of the AV node . ??A series of RF energy applications at 40 W were delivered near the CS ostium. ??Long runs of junctional rhythm with 1:1 VA co nduction were seen during ablation. ?? (VIII) POST-ABLATION TESTING: No inducible arrhythmia after ablation. There was no evidence of residual slow p athway function. DISCUSSION: Successful slow pathway ablation. ??Very low likelihood of future SVT recurrence. ?? CONCLUSIONS: 1. ??Inducible typical AVNRT. 2. ??Successful catheter ablation of the slow pathway of the AV node. 3. ??No apparent in-lab complication. ?? Breanna Roblero MD CV ELECTROPHYSIOLOGY ORD ERABLES documented in this encounter Visit Diagnoses Diagnosis SVT (supraventricular tachycardia) (H) - Primary Other specified cardiac dysrhythmias documented in this encounter Additional Health Concerns Assessment Noted Time PHQ-9 Depression Total Score: 1 09/22/2017 7:43 AM CDT documented as of this encounter Care Teams Rope Silica Machine Operator Relationship Specialty Start Date End Date Sarah Montgomery, PCP - General Family Practice 10/21/11 PA-C [address] [place] [address] Sarah Montgomery, PCP - Assigned PCP 07/27/18 [facility] [address] [place] [address] Sarah Montgomery, Assigned PCP 03/15/17 10/17/20 PA-C [address] [place] [address] documented as of this encounter
--- OUTSIDE RECORDS SUMMARY | 2022-01-03 08:22 | XMS_ITS | Encounter Summary ---
:1985 Author Organization [facility] Address [address] [place] [address] Care Team Providers Name Role Phone Sarah Montgomery PA-C Primary Care Provider [phone] Sarah Montgomery PA-C Unavailable Sarah Montgomery PA-C Unavailable Reason for Visit Reason Onset Date Comments medical question 04/20/2018 Encounter Details Date Type Department Care Team Description 04/20/2018 Telephone [facility] Heart January Laguna RN medical question Clinic [address] [phone] Social History Tobacco Use Types Packs/Day [...] this encounter Miscellaneous Notes Telephone Encounter - January Laguna RN - 04/20/2018 11:30 AM CST Patient called inquiring about nodule in groin site. Patient s/p SVT ablation 04/08. Patient reportsthe nodule is approximately size of small marble and wanted to know if she should be concerned. Denies pain. Informed patient that nodule s/p ablation is completely normal. Patient does not believe it has gotten larger since procedure however indicates she did not feel it post procedure. Recommended that patient continue to monitor and call if area becomes larger. Informed patient this does go away in approximately 4-6 weeks post procedure. Patient provided verbal understanding. Eleno RN ERN CLERK documented in this encounter Plan of Treatment Not on filedocumented as of this encounter Visit Diagnoses Not on filedocumented in this encounter Additional Health Concerns Assessment Noted Time PHQ-9 Depression Total Score: 1 09/22/2017 7:43 AM CDT documented as of this encounter Care Teams Drier Attendant Relationship Specialty Start Date End Date Sarah Montgomery, PCP - General Family Practice 10/21/11 [address] [address] [place] [address] Sarah Montgomery, PCP - Assigned PCP 07/27/18 [address] [address] [place] [address] Sarah Montgomery, Assigned PCP 03/15/17 10/17/20 [address] [address] [place] [address] documented as of this encounter
--- OUTSIDE RECORDS SUMMARY | 2022-01-03 08:22 | XMS_ITS | Encounter Summary ---
:1985 Author Organization [facility] Address [address] [place] [address] Care Team Providers Name Role Phone Sarah Montgomery PA-C Primary Care Provider [phone] Sarah Montgomery PA-C Unavailable [phone] Sarah Montgomery PA-C Unavailable [phone] Reason for Visit Reason Onset Date Comments Clinic Care Coordination - Follow-up 04/09/2018 SVT Ablation Encounter Details Date Type Department Care Team Description 04/09/2018 Telephone [facility] Heart Thelma Bartholomew C linic Care Coordination Clinic Piper RN - Follow-up (SVT [address] Ablation) [facility] [address] [place] [address] Social History Tobacco Use Types [...] Telephone Encounter - Thelma Bartholomew RN - 04/09/2018 4:32 PM CST Spoke to pt who is doing well and having no pain in groin at rest or with ambulation. Pt has been taking it easy and groin site has a band-aid in place. Pt reminded no lifting more that 10 pounds for afew days. Pt states that f/u with Quita on 05/05 will work. No questions or concerns. JnelsonRN RECOVERY OPERATOR documented in this encounter Plan of Treatment Not on filedocumented as of this encounter Visit Diagnoses Not on filedocumented in this encounter Additional Health Concerns Assessment Noted Time PHQ-9 Depression Total Score: 1 09/22/2017 7:43 AM CDT documented as of this encounter Care Teams Linseed Cake Trimmer Relationship Specialty Start Date End Date Sarah Montgomery, PCP - General Family Practice 10/21/11 [address] [address] [place] [address] Sarah Montgomery, PCP - Assigned PCP 07/27/18 [address] [address] [place] [address] Sarah Montgomery, Assigned PCP 03/15/17 10/17/20 [address] [address] [place] [address] documented as of this encounter
--- OUTSIDE RECORDS SUMMARY | 2022-01-03 08:22 | XMS_ITS | Encounter Summary ---
:1985 Author Organization [facility] Address [address] [place] [address] Care Team Providers Name Role Phone Sarah Montgomery PA-C Primary Care Provider [phone] Encounter Details Date Type Department Care Team Description 12/01/2020 Travel Social History Tobacco Use Types Packs/Day [...] / COVID-19? documented as of this encounter Plan of Treatment Not on filedocumented as of this encounter Visit Diagnoses Not on filedocumented in this encounter Additional Health Concerns Infection Onset Date Last Indicated Resolved Time Rule Out COVID-19 12/01/2020 12/01/2020 12/02/2020 11: 20 AM CDT Assessment Noted Time PHQ-9 Depression Total Score: 1 09/22/2017 7:43 AM CDT documented as of this encounter Care Teams Account Management Assistant Relationship Specialty Start Date End Date Sarah Montgomery PA-C PCP - General Family Practice 10/21/11 [address] [address] [address] documented as of this encounter
--- OUTSIDE RECORDS SUMMARY | 2022-01-03 08:22 | XMS_ITS | Encounter Summary ---
:1985 Author Organization [facility] Address [address] [place] [address] Care Team Providers Name Role Phone Sarah Montgomery PA-C Primary Care Provider Sarah Montgomery PA-C Unavailable [phone] Sarah Montgomery PA-C Unavailable Reason for Referral CV Testing - Closed Specialty Diagnoses / Procedures Referred By Contact Refer red To Contact Cardiology Diagnoses CARDIOVASCULAR SCREENING; LDL GOAL LESS THAN 160 Palpitations Sonny Villafuerte MD Rh Echo Rscc Procedures Echocardiogram [address] [address] [place] [address] [address] [place] [address] Phone: Fax: Referral ID Status Reason Start Date Expiration Date Visits Requ ested Visits Authorized [id number] Closed 10/19/2017 10/19/2018 1 1 Reason for Visit CV Testing - Closed Specialty Diagnoses / Procedures Referred By Contact Refer red To Contact Cardiology Diagnoses CARDIOVASCULAR SCREENING; LDL GOAL LESS THAN 160 Palpitations Sonny Villafuerte MD Rh Echo Rscc Procedures Echocardiogram [address] [address] [place] [address] [address] [place] [address] Phone: Fax: Referral ID Status Reason Start Date Expiration Date Visits Requ ested Visits Authorized [id number] Closed 10/19/2017 10/19/2018 1 1 Encounter Details Date Type Department Care Team Description 11/11/2017 Hospital Encounter [facility] Ip, Sonny Chauhan CAR DIOVASCULAR SCREENING; LDL GOAL LESS THAN 160; [facility] MD José Miguel Palpitations [facility] [address] [facility] [address] [facility] [address] [place] [address] [place], [place] [phone] [address] (Work) [phone] Social History Tobacco Use Types Packs/Day Years [...] on file documented as of this encounter Medications at Time of Discharge Medication Sig Dispensed Refills Start Date End Date fluticasone (FLONASE) [address] [place] 1-2 sprays 16 g 0 12/2112/01/2020 MCG/ACT sprayIndications: into both nostrils Acute sinusitis with daily symptoms > 10 days LORazepam (ATIVAN) 1 MG Take 1 mg by mouth 0 05/05/2018 tablet every 6 hours as needed for anxiety valACYclovir (VALTREX) Take 1 tablet (500 6 tablet 3 09/2312/01/2020 500 MG tabletIndications: mg) by mouth 2 times HSV (herpes simplex daily virus) infection documented as of this encounter Plan of Treatment Not on filedocumented as of this encounter Procedures Procedure Name Priority Date/Time Associated Diagnosis Comme nts ECHO COMPLETE Routine 11/11/2017 8:00 AM CARDIOVASCULAR Result s for this CDT SCREENING; LDL GOAL LESS pro cedure are in THAN 160 the results Palpitations section. documented in this encounter Results Echocardiogram (11/11/2017 8:00 AM CDT) Anatomical Region Laterality Modality Echocardiography Specimen (Source) Anatomical Collection Method Collection Time Re ceived Time Location / / Volume Laterality 11/11/2017 7:48 AM CDT Narrative 11/11/2017 10:37 AM CDT [id number]^GENESIS^SONNY^LUCRECIA VALDEZ [facility] Echocardiography Laboratory [address] [place] [address] Name: RHONDA KIRKLAND : 1985 Study Date: 11/11/2017 07:48 AM Age: 32 yrs Gender: Female [place] [facility] [place] For Study: Palpitations Ordering Physician: SONNY VILLAFUERTE Referring Physician: Ra yvonne Montgomery Performed By: Regina Jose RDCS BSA: 1.8 m2 Height: 66 in Weight: 160 lb HR: 88 BP: 111/77 mmHg __ Procedure Complete Echo Adult. __ Interpretation Summary Normal transthoracic echocardiogram. __ Left Ventricle The left ventricle is normal in structur e, function and size. Left ventricular diastolic function is normal. Right Ventricle The right ventricle is normal in structu re, function and size. Atria Normal left atrial size. Right atrial si ze is normal. Mitral Valve The mitral valve is normal in structure and function. Tricuspid Valve Normal tricuspid valve. Aortic Valve The aortic valve is normal in structure and function. Pulmonic Valve Normal pulmonic valve. Vessels The aortic root is normal size. Pericardium There is no pericardial effusion. Rhythm Sinus rhythm was noted. __ MMode/2D Measurements & Calculations IVSd: 0.86 cm LVIDd: 4.6 cm LVIDs: 2.8 cm LVPWd: 0.90 cm IVC diam: 2.4 cm FS: 39.8 % LV mass(C)d: 132.8 grams LV mass(C)dI: 73.0 grams/m2 Ao root diam: 3.3 cm LA dimension: 3.1 cm asc Aorta Diam: 3.1 cm LA/Ao: 0.93 LA Volume Index (BP): 27.8 ml/m2 RWT: 0.40 TAPSE: 2.6 cm Doppler Measurements & Calculations MV E max toño: 78.6 cm/sec MV A max toño: 35.9 cm/sec MV E/A: 2.2 MV dec slope: 438.4 cm/sec2 MV dec time: 0.18 sec E/E': 5.2 Peak E' Toño: 15.0 cm/sec __ Report approved by: Abner Pratt 11/11 10:37 AM Procedure Note Sonny Villafuerte MD - 11/11/2017Forma tting of this note might be different from the original. [id number]^GENESIS^SONNY^LUCRECIA JOSÉ MIGUEL [facility] Echocardiography Laboratory [address] [place] [address] Name: RHONDA KIRKLAND : 1985 Study Date: 11/11/2017 07:48 AM Age: 32 yrs Gender: Female [place] [facility] [place] For Study: Palpitations Ordering Physician: SONNY VILLAFUERTE Referring Physician: Ra yvonne Montgomery Performed By: Regina Jose RDCS BSA: 1.8 m2 Height: 66 in Weight: 160 lb HR: 88 BP: 111/77 mmHg __ Procedure Complete Echo Adult. __ Interpretation Summary Normal transthoracic echocardiogram. __ Left Ventricle The left ventricle is normal in structur e, function and size. Left ventricular diastolic function is normal. Right Ventricle The right ventricle is normal in structu re, function and size. Atria Normal left atrial size. Right atrial si ze is normal. Mitral Valve The mitral valve is normal in structure and function. Tricuspid Valve Normal tricuspid valve. Aortic Valve The aortic valve is normal in structure and function. Pulmonic Valve Normal pulmonic valve. Vessels The aortic root is normal size. Pericardium There is no pericardial effusion. Rhythm Sinus rhythm was noted. __ MMode/2D Measurements & Calculations IVSd: 0.86 cm LVIDd: 4.6 cm LVIDs: 2.8 cm LVPWd: 0.90 cm IVC diam: 2.4 cm FS: 39.8 % LV mass(C)d: 132.8 grams LV mass(C)dI: 73.0 grams/m2 Ao root diam: 3.3 cm LA dimension: 3.1 cm asc Aorta Diam: 3.1 cm LA/Ao: 0.93 LA Volume Index (BP): 27.8 ml/m2 RWT: 0.40 TAPSE: 2.6 cm Doppler Measurements & Calculations MV E max toño: 78.6 cm/sec MV A max toño: 35.9 cm/sec MV E/A: 2.2 MV dec slope: 438.4 cm/sec2 MV dec time: 0.18 sec E/E': 5.2 Peak E' Toño: 15.0 cm/sec __ Report approved by: Abner Pratt 11/11 10:37 AM Sonny Villafuerte MD CV ECHO ORDERABLES documented in this encounter Visit Diagnoses Diagnosis CARDIOVASCULAR SCREENING; LDL GOAL LESS THAN 160 Palpitations documented in this encounter Additional Health Concerns Assessment Noted Time PHQ-9 Depression Total Score: 1 09/22/2017 7:43 AM CDT documented as of this encounter Care Teams Certified Medical Records Coder Relationship Specialty Start Date End Date Sarah Montgomery, PCP - General Family Practice 10/21/11 [facility] [address] [place] [address] Sarah Montgomery, PCP - Assigned PCP 07/27/18 [facility] [address] [place] [address] Sarah Montgomery, Assigned PCP 03/15/17 10/17/20 [facility] [address] [place] [address] documented as of this encounter
--- OUTSIDE RECORDS SUMMARY | 2022-01-03 08:22 | XMS_ITS | Encounter Summary ---
:1985 Author Organization [facility] Address [address] [place] [address] Care Team Providers Name Role Phone Sarah Montgomery PA-C Primary Care Provider Sarah Montgomery PA-C Unavailable [phone] Sarah Montgomery PA-C Unavailable Reason for Referral - Closed Specialty Diagnoses / Procedures Referred By Contact Refer red To Contact Diagnoses SVT (supraventricular tachycardia) (H) [facility] [address] [address] [place] [address] Referral ID Status Reason Start Date Expiration Date Visits Requ ested Visits Authorized [id number] Closed 01/06/2018 01/06/2019 1 1 Reason for Visit Reason Onset Date Comments Results 12/23/2017 Event monitor Encounter Details Date Type Department Care Team Description 12/23/2017 Telephone [facility] Heart Macie Knight RN Results (Event monitor) [facility] [place] [address] [facility] [address] [place] [address] Social History Tobacco Use Types Packs/Day [...] this encounter Miscellaneous Notes Telephone Encounter - Macie Knight RN - 12/23/2017 1:14 PM CDT End of service summary report from 30 day event monitor was reviewed by Dr. Villafuerte. One episode of SVT at 180 bpm with symptoms at rest noted. Dr. Villafuerte is recommending consult with pharmacy technician per diem. Left Voice message for patient to return call to discuss recommendations of Dr. Villafuerte's, and to set up EP OV if patient agrees. Await call back. ADDENDUM: Patient returned call. Informed her of the event monitor results showing one episode of SVT and recommendation per Dr. Villafuerte for a consult with EP. Order placed in [employer]. Provided patient with the phone number for the scheduling department and she planned to call back to schedule this. 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 (supraventricular tachycardia) (H) (Approximat e), Expires: 12/23/2019 documented as of this encounter Visit Diagnoses Diagnosis SVT (supraventricular tachycardia) (H) - Primary Other specified cardiac dysrhythmias documented in this encounter Additional Health Concerns Assessment Noted Time PHQ-9 Depression Total Score: 1 09/22/2017 7:43 AM CDT documented as of this encounter Care Teams Linux System Admin Relationship Specialty Start Date End Date Sarah Montgomery PCP - General Family Practice 10/21/11 [facility] [address] [place] [address] Sarah Montgomery PCP - Assigned PCP 07/27/18 [facility] [address] [place] [address] Sarah Montgomery, Assigned PCP 03/15/17 10/17/20 [facility] [address] [place] [address] documented as of this encounter
--- OUTSIDE RECORDS SUMMARY | 2022-01-03 08:22 | XMS_ITS | Clinical Summary ---
:1985 Author Organization [facility] Address [address] [place] [address] Care Team Providers Name Role Phone Sarah Montgomery PA-C Primary Care Provider [phone] Allergies Active Allergy Reactions Severity Noted Date Comments Seasonal Allergies 11/16/2014 Medications Medication Sig Dispensed Refills Start Date End Date Status [place]-3 Fatty Acids (FISH OIL) 500 0 Active MG CAPS Active Problems Problem Noted Date Paroxysmal supraventricular tachycardia 04/05/2018 Constipation, unspecified constipation type 09/06/2015 Vitamin D deficiency 10/06/2014 Anxiety 07/12/2014 HSV (herpes simplex virus) infection 02/15/2014 Papanicolaou smear of cervix with low grade squamous i ntraepithelial 10/27/2011 lesion (LGSIL) Overview: 06/02 HSIL 08/31 colp bx neg, pt lost to f/u 09/2011 Pap LSIL, 01/19/12 colp:ELZBIETA I. Jacques n pap in 6 & 12 months or HPV testing in 1 yr. In reminders. 06/30/12 DX ASCUS pap, neg HPV, pt. Is t o have a repeat pap in six months. 12/13/12:DX NL pap, neg HPV. 02/15/14 Dx pap NIL. HPV Neg. Plan: pap i n 3 years CARDIOVASCULAR SCREENING; LDL GOAL LESS THAN 160 03/24 Resolved Problems Problem Noted Date Resolved Date Indication for care in labor or delivery 07/07/2016 09/23/2017 state 07/07/2016 09/23/2017 Encounter for triage in patient 05/17/2016 09/23/2017 Encounter for supervision of normal first 04/14/20 16 09/23/2017 Encounter for supervision of normal first , 016 04/14/2016 unspecified trimester [Z34.00] Depression with anxiety 06/01/2014 09/20/2015 Encounter for counseling 02/15/2014 09/20/2015 Overview: Problem list name updated by automated p radha. Provider to review Immunizations Name Administration Dates Next Due HPV 06/19/2008 Influenza Vaccine IM > 6 months Valent IIV4 07/09/2016 (Alfuria,Fluzone) MMR 07/09/2016 TDAP Vaccine (Boostrix) 04/14/2016, 12/13/2012 Family History Medical History Relation Comments Depression Father Heart Disease Father [place] at age 42 Diabetes Maternal Grandfather Breast Cancer Maternal Grandmother dx at age 62 Cancer Maternal Grandmother cervical and uterin e Diabetes Paternal Grandfather Cancer - colorectal No family hx of Relation Status Comments Brother 1 Alive Brother 2 Alive 2 step brothers (no relation) Father (Age 43) [place] Maternal Grandfather Alive Maternal Grandmother Alive Mother Alive Paternal Grandfather Alive Paternal Grandmother Alive Social History Tobacco Use Types Packs/Day Years Used Date Former Smoker Smokeless Tobacco: Never Used Tobacco Cessation: Counseling Given: No Comments: quit about 2013 Alcohol Use Standard [...] Assigned at Date Recorded Not on file Last Filed Vital Signs Vital Sign Reading Time Taken Comments Blood Pressure 110/60 12/01/2020 1:33 PM CDT Pulse 92 12/01/2020 1:33 PM CDT Temperature 36.8 ??C (98.3 ??F) 12/01/2020 1:33 PM CDT Respiratory Rate 16 04/08/2018 3:00 PM 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 Oxygen Saturation 97% 12/01/2020 1:33 PM CDT Inhaled Oxygen Concentration - - Weight 80.3 kg (177 lb) 12/01/2020 1:33 PM CDT Height 167.6 cm (5' 6) 05/05/2018 12:36 PM FOOD SERVICE EMPLOYEE Body Mass Index 28.57 05/05/2018 12:36 PM FOOD SERVICE EMPLOYEE Plan of Treatment Health Maintenance Due Date Last Done Comments ADVANCE CARE PLANNING 1985 ANNUAL REVIEW OF HM ORDERS 1985 COVID-19 Vaccine (#1) 05/01/1988 HEPATITIS C SCREENING 10/30/2005 PREVENTIVE CARE VISIT 08/20/2017 08/20/2016, 02/15/2014, 12/13/2012, Additional history exists PAP 08/21/2019 08/20/2016, 02/15/2014, 12/13/2012, Additional history exists PHQ-2 (once per calendar 05/25/2021 09/21/2017, 09/21/2017, year) 08/20/2016, Additional history exists INFLUENZA VACCINE (#1) 2022 06/07/2020, 06/07/2020, 03/29/2019, Additional history exists DTAP/TDAP/TD IMMUNIZATION 06/07/2030 06/07/2020, 04/14/2016 , (8 - Td or Tdap) 12/13/2012, Additional history exists IPV IMMUNIZATION Completed 12/12/1991, 05/25/1989, 02/23/1988, Additional history exists HEPATITIS B IMMUNIZATION Completed 11/02/2000, 12/19/1999, 11/18/1999 HIV SCREENING Completed 12/11/2015, 11/16/2014 MENINGITIS IMMUNIZATION Aged Out No longe r eligible based on patient 's age to complete this topic Pneumococcal Vaccine: Aged Out No longer eligible Pediatrics (0 to 5 Years) based on patient's age and At-Risk Patients (6 to to co mplete this topic 64 Years) Insurance Payer Benefit Plan / Subscriber ID Effective Dates Phone Addre ss Type Group BCBS BCBS OF [place] [id number] 2020-Prese [phone] [address] [address] Indemnity nt 0 [place] [address] [id number] (Home) W None (Work) [place] [phone] Care Teams Web Content Director Relationship Specialty Start Date End Date Sarah Montgomery PA-C PCP - General Family Practice 10/21/11 [address] [address] [place], [place] [id number]
--- OUTSIDE RECORDS SUMMARY | 2022-01-03 08:22 | XMS_ITS | Encounter Summary ---
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 No further episodes noted after 11/19/17. Will review with Dr. Villafuerte for signature and send to be scanned. Robert Cummings RN - 12/14/17, 11:17 AM Whitney Zee RN - 11/20/2017 3:33 PM CDT Cardiac Event monitor 11-19-17 6:45:55 Symptomatic Event HR 180bpm heart racing while resting, Second Event 6:46:01 HR 130 bpm showing PSVT into Sinus Tachycardia symptomatic heart racing while resting. Contacted patient she states she just felt her heart racing for a short period. Denies any dizzinessor light headedness heart racing only. Will continue to monitor. Strips sent to file. KELLIE Salazar November 20, 2017, 3:37 PM Whitney Zee RN - 11/16/2017 2:58 PM CDT Cardiac event monitor 11-13-17 at 21:07:31 HR 79bpm showing Sinus Rhythm With PVC Symptomatic event resting and skipped beat. Cardiac event 11-15-201710:05:01 Showing sinus tachycardia HR 115 bpm asymptomatic strips sent to file. KELLIE Salazar November 16, 2017, 3:10 PM Sean Cummings NP - 11/13/2017 1:50 PM CDT Cardiac event monitor placed for evaluation of palpitations. Event strips received from [employer] from 11/12/17. Three symptomatic events for shortness of breath and heart racing showing sinus rhythm with a HR of 70 to 100. Will send to file and continue to monitor. Monitoring period to continue to 12/10/17. Robert Cummings RN - 11/13/17, 1:52 PM documented in this encounter Plan of Treatment Not on filedocumented as of this encounter Visit Diagnoses Not on filedocumented in this encounter Additional Health Concerns Assessment Noted Time PHQ-9 Depression Total Score: 1 09/22/2017 7:43 AM CDT documented as of this encounter Care Teams Rehab Services Aide Relationship Specialty Start Date End Date Sarah Montgomery, PCP - General Family Practice 10/21/11 [facility] [address] [place] [address] Sarah Montgomery, PCP - Assigned PCP 07/27/18 [facility] [address] [place] [address] Sarah Montgomery, Assigned PCP 03/15/17 10/17/20 [facility] [address] [place] [address] documented as of this encounter
--- OUTSIDE RECORDS SUMMARY | 2022-01-03 08:22 | XMS_ITS | Encounter Summary ---
:1985 Author Organization [facility] Address [address] [place] [address] Care Team Providers Name Role Phone Sarah Montgomery PA-C Primary Care Provider [phone] Sarah Montgomery PA-C Unavailable Sarah Montgomery PA-C Unavailable Reason for Referral CV Testing - Closed Specialty Diagnoses / Procedures Referred By Contact Refer red To Contact Cardiology Diagnoses CARDIOVASCULAR SCREENING; LDL GOAL LESS THAN 160 Palpitations Morris Villafuerte MD [facility] Cardiac Test [facility] Procedures Cardiac Event Monitor - Peds/Adult [address] [address] [place] [address] [address] [place] [address] Phone: Fax: Referral ID Status Reason Start Date Expiration Date Visits Requ ested Visits Authorized [id number] Closed 10/19/2017 10/19/2018 1 1 Reason for Visit CV Testing - Closed Specialty Diagnoses / Procedures Referred By Contact Refer red To Contact Cardiology Diagnoses CARDIOVASCULAR SCREENING; LDL GOAL LESS THAN 160 Palpitations Morris Villafuerte MD [facility] Cardiac Test Rs Procedures Cardiac Event Monitor - Peds/Adult [address] [address] [place] [address] [address] [place] [address] Phone: Fax: Referral ID Status Reason Start Date Expiration Date Visits Requ ested Visits Authorized [id number] Closed 10/19/2017 10/19/2018 1 1 Encounter Details Date Type Department Care Team Description 11/11/2017 Hospital Encounter [facility], Morris Chauhan CARD IOVASCULAR SCREENING; LDL GOAL LESS THAN 160; Care Center MD Veronique Palpitations [address] [facility] [address] [place] [address] Social History Tobacco Use Types Packs/Day Years [...] Start Date End Date fluticasone (FLONASE) [address] [place] 1-2 sprays 16 g 0 12/2112/01/2020 MCG/ACT [...] virus) infection documented as of this encounter Progress Notes Stephan Lizama - 11/11/2017 8:44 AM CDT Placed a 30 day Event Monitor. documented in this encounter Plan of Treatment Not on filedocumented as of this encounter Procedures Procedure Name Priority Date/Time Associated Diagnosis Comme nts CARDIAC EVENT Routine 12/10/2017 CARDIOVASCULAR SCREENING; R esults for this MONITOR - PEDS/ADULT LDL GOAL LE SS THAN 160 procedure are in the Palpitations results section . documented in this encounter Results Cardiac Event Monitor - Peds/Adult (12/10/2017) Narrative [facility] - 12/10/2017 [facility] [address] [facility] [address] [facility] [address] 11/11/2017 Patient: ??Rhonda Patel [place] Chart: [id number] : ??1985 Age: ??32 year old Sex: ??female Procedure: ??Event Monitor Placed: Pleas e see scanned document for result once interpretation is completed. [facility] Worker performing hook-up: ??Stephan Lizama Morris Villafuerte MD CV CARDIAC SERVICES ORDERABL ES Performing Organization Address City/State/ZIP Code Phon e Number [facility] documented in this encounter Visit Diagnoses Diagnosis CARDIOVASCULAR SCREENING; LDL GOAL LESS THAN 160 Palpitations documented in this encounter Additional Health Concerns Assessment Noted Time PHQ-9 Depression Total Score: 1 09/22/2017 7:43 AM CDT documented as of this encounter Care Teams Professor Of Mechanical Engineering Relationship Specialty Start Date End Date Sarah Montgomery PCP - General Family Practice 10/21/11 [facility]C [address] [place] [address] Sarah Montgomery PCP - Assigned PCP 07/27/18 [facility] [address] [place] [address] Sarah Montgomery, Assigned PCP 03/15/17 10/17/20 [facility] [address] [place] [address] documented as of this encounter
--- OUTSIDE RECORDS SUMMARY | 2022-01-03 08:22 | XMS_ITS | Encounter Summary ---
:1985 Author Organization [place] Address [address] [facility] [place] [address] Care Team Providers Name Role Phone Sarah oMntgomery PA-C Primary Care Provider Sarah Montgomery PA-C Unavailable Sarah Montgomery PA-C Unavailable [phone] Encounter Details Date Type Department Care Team Description 04/08/2018 Hospital Encounter [facility] Tejal Roblero SVT [facility] MD [place] (supraventricular Suites [address] tachycardia) (H) [address] [place], [place] [id number] [phone] Social History Tobacco Use Types Packs/Day Years [...] Sign Reading Time Taken Comments Blood Pressure 103/80 04/08/2018 3:00 PM POWDER CORE TESTER Pulse 81 04/08/2018 3:00 PM POWDER CORE TESTER Temperature 36.8 ??C (98.3 ??F) 04/08/2018 6:41 AM POWDER CORE TESTER Respiratory Rate 16 04/08/2018 3:00 PM POWDER CORE TESTER Oxygen Saturation 96% 04/08/2018 12:30 PM POWDER CORE TESTER Inhaled Oxygen Concentration - - Weight 71.7 kg (158 lb) 04/08/2018 6:41 AM POWDER CORE TESTER Height 167.6 cm (5' 6) 04/08/2018 6:41 AM POWDER CORE TESTER Body Mass Index 25.5 04/08/2018 6:41 AM POWDER CORE TESTER documented in this encounter Discharge Instructions Discharge InstructionsRosetta Bailey RN - 04/08/2018 1:04 PM CST SVT Ablation Discharge Instructions - Femoral After you go home: ??? Have an adult stay with you until tomorrow. ??? You may resume your normal diet. For 24 hours - due to the sedation you received: ??? Relax and take it easy. ??? Do NOT make any important or legal decisions. ??? Do NOT drive or operate machines at home or at work. ??? Do NOT drink alcohol. Care of Groin Puncture Site: ??? For the first 24 hrs - check the puncture site every 1-2 hours while awake. ??? For 2 days, when you cough, sneeze, laugh or move your bowels, hold your hand over the puncture site and press firmly. ??? Remove the bandaid after 24 hours. If there is minor oozing, apply another bandaid and remove itafter 12 hours. ??? It is normal to have a small bruise or pea size lump at the site. ??? You may shower tomorrow. Do NOT take a bath, or use a hot tub or pool for at least 3 days. Do NOT scrub the site. Do not use lotion or powder near the puncture site. Activity: For 2 days: ??? No stooping or squatting ??? Do NOT do any heavy activity such as exercise, lifting, or straining. ??? No housework, yard work or any activity that make you sweat ??? Do NOT lift more than 10 pounds Bleeding: ??? If you start bleeding from the site in your groin, lie down flat and press firmly on the site for 10 minutes. ??? Once bleeding stops, lay flat for 2 hours. ??? Call [facility] as soon as you can. Call 911 right away if you have heavy bleeding or bleeding that does not stop. Medicines: ??? Take your medications, including blood thinners, unless your provider tells you not to. ??? If you have stopped any medicines, check with your provider about when to restart them. ??? If you have pain or shortness of breath, you may take Advil (ibuprofen) or Tylenol (acetaminophen). Follow Up Appointments: ??? An appointment has been set up for you for follow-up care ??? You will receive a phone call tomorrow morning from an RN - Lio Renee or Shahnaz. Call the clinic if: ??? You have increased pain or a large or growing hard lump around the site. ??? The site is red, swollen, hot or tender. ??? Blood or fluid is draining from the site. ??? You have chills or a fever greater than 101 F (38 C). ??? Your leg feels numb, cool or changes color. ??? Increased pain in the chest and/or groin. ??? Increased shortness of breath ??? Chest pain not relieved by Tylenol or Advil ??? New pain in the back or belly that you cannot control with Tylenol. ??? Recurrent irregular or fast heart rate lasting over 2 hours. ??? Any questions or concerns. Heart rhythms: You may have some irregular heartbeats. These feel very strong. They may make you feel that the fastheart rhythm is going to start again. Give it time. The irregular beats should occur less often. [facility]: [phone] ( 8am-5pm M-F) Lio Renee or Shahnaz [phone] [facility] (7 days a week) ER CORE TESTER documented in this encounter Medications at Time of Discharge Medication Sig Dispensed Refills Start Date End Date fluticasone (FLONASE) [address] [place] 1-2 sprays 16 g 0 12/2112/01/2020 MCG/ACT [...] documented as of this encounter Progress Notes Nito Blas RN - 04/08/2018 3:45 PM CST 1530 Pt ambulated well to BR. Voided. Rt groin site remained WDL. Pt CO mild pain at groin site. Tylenol given with sl. Relief. 1600 Pt escorted to ride with per wc with all belongings. ER CORE TESTER Crys Enrique RN - 04/08/2018 2:41 PM CST Got up of bed at 1430 and oozed from groin right away. 5 min of manual pressure- page out to Dr Roblero. Will plan 1 more hour of bedrest. See flow sheet. Report given to Chavez HOPKINS ER CORE TESTER Rosetta Bailey RN - 04/08/2018 1:20 PM CST 1215 Report received from Crys Enrique RN. 1230 Tegaderm intact to right groin puncture sites. No oozing or hematoma noted. Area soft & flat. Pt denies pain. Pt's family at bedside. Pt resting quietly. 1320 Report given to Crys Enrique RN. Crys Carrasco RN - 04/08/2018 11:57 AM CST No c/o post Ablation. Family is here. See flow sheet. Ate. On bedrest til 1430. ER CORE TESTER Crys Enrique RN - 04/08/2018 7:41 AM CST Sent web page to Dr Roblero with K+ 3.4. ER CORE TESTER Crys Enrique RN - 04/08/2018 7:16 AM CST Heart tones normal, no femoral bruit. Here with her mom. Explained pre Ablation and answered questions. Does not want to see Ablation video. Resting in bed with call light in reach. ER CORE TESTER documented in this encounter Procedure Notes Breanna Roblero MD - 04/08/2018 10:07 AM CSTAssociated Order(s): H ABLATION SVT PROCEDURES PERFORMED: 1. Comprehensive electrophysiology study with arrhythmia induction. 2. Left atrial recording and pacing via the coronary sinus. 3. Electrophysiology study under drug infusion. 4. 3D cardiac mapping. 5. Catheter ablation of SVT. 6. Cardiac fluoroscopy (3.9 minutes). 7. Conscious sedation. Versed 6 mg, fentanyl 200 mcg. Total sedation time was 80 minutes. CLINICAL HISTORY: 32 yo female with symptomatic paroxysmal SVT. She has consented to undergo EP study and SVT ablation. PROCEDURE: The patient was brought to the Cardiac Electrophysiology Laboratory at [facility] on 04/08/2018. I determined this patient to be an appropriate candidate for the planned sedation and procedure and have reassessed the patient immediately prior to sedation and procedure. The patient wasin the fasting, nonsedated state. Informed consent had been obtained. We continuously monitored vital signs, oxygenation and level of sedation. The patient was placed on the procedure table and the groin areas were prepped and draped in the usual sterile fashion. Under 1% lidocaine for local anesthesia 3 sheaths were introduced in the right femoral vein. Under fluoroscopic guidance the following catheters were introduced: a. A steerable decapolar catheter was brought in the coronary sinus. b. A standard quadripolar catheter was brought in the right ventricle. c. A standard quadripolar catheter was brought in the His bundle position. d. For mapping and ablation we used a Biosense Navistar catheter with F/J curve and 4 mm tip. Measurements and pacing protocols were performed as outlined in the results section of this report. The patient had inducible typical AVNRT. Once the mechanism of tachycardia was confirmed we proceeded with catheter ablation of the AV node slow pathway. Following catheter ablation, extensive pacing protocols were performed to re- induce the arrhythmia. The arrhythmia was no longer inducible. 30 minutes after the final ablation all catheters and sheathswere removed and hemostasis was obtained with manual pressure. There were no apparent complications.The patient was brought back to the hospital room in stable condition. Estimated blood loss was 15 ml. RESULTS: (I) ELECTROCARDIOGRAM: Normal ECG, no ventricular pre-excitation. (II) BASIC INTERVALS IN THE BASELINE STATE (measured in msec): RR: 660 WA: 117 QRS: 92 QT: 368 AH: 60 HV: 37 (III) ANTEGRADE CONDUCTION PROPERTIES: Following incremental pacing in the RA (CS os) there was 1:1 AV conduction at 360 msec with Wenckebach-type AV conduction occurring at [address] at 600 msec the AV node ERP was 300 msec. There was evidence of dual AV node physiology with AH interval jump of 60 msec with S1/S2 in the RA. (IV) RETROGRADE CONDUCTION PROPERTIES: Following ventricular pacing from the RV apex, there was 1:1 VA conduction with etrograde atrial activation being concentric and decremental, consistent with conduction via the normal AV node/His Purkinje system. SVT was reproducibly induced with V-pacing. (V) MEDICATIONS USED: Isoproterenol, up to 2 mcg/min, was used to help induce tachycardia post ablation. () ARRHYTHMIAS SEEN OR INDUCED: 1. Typical AVNRT. Easily inducible with V-pacing. Average HR in the 150s. Irregular supraventriculartachycardia with very short VA time and spontaneous termination in the AV node (final atrial EGM). Consistent with multiple antegrade slow pathways. (VII) MAPPING AND ABLATION: A detailed 3D map of the RA was constructed using CARTO. We targeted the slow pathway of the AV node. A series of RF energy applications at 40 W were delivered near the CS ostium. Long runs of junctional rhythm with 1:1 VA conduction were seen during ablation. (VIII) POST-ABLATION TESTING: No inducible arrhythmia after ablation. There was no evidence of residual slow pathway function. DISCUSSION: Successful slow pathway ablation. Very low likelihood of future SVT recurrence. CONCLUSIONS: 1. Inducible typical AVNRT. 2. Successful catheter ablation of the slow pathway of the AV node. 3. No apparent in-lab complication. ER CORE TESTER documented in this encounter Plan of Treatment Not on filedocumented as of this encounter Procedures Procedure Name Priority Date/Time Associated Comments Diagnosis H ABLATION SVT Routine 04/08/2018 9:43 AM SVT Results for this POWDER CORE TESTER (supraventricular procedure are in tachycardia) (H) the results section. EKG 12-LEAD, TRACING STAT 04/08/2018 7:04 AM R esults for this ONLY POWDER CORE TESTER procedure are i n the results section. HCG QUANTITATIVE STAT 04/08/2018 6:53 AM SVT Resul ts for this POWDER CORE TESTER (supraventricular procedure are in tachycardia) (H) the results section. BASIC METABOLIC PANEL STAT 04/08/2018 6:53 AM SVT Results for this POWDER CORE TESTER (supraventricular procedure are in tachycardia) (H) the results section. CBC WITH PLATELETS STAT 04/08/2018 6:53 AM SVT Res ults for this POWDER CORE TESTER (supraventricular procedure are in tachycardia) (H) the results section. documented in this encounter Results EP Ablation SVT (04/08/2018 9:43 AM POWDER CORE TESTER) Anatomical Region Laterality Modality Other Specimen (Source) Anatomical Location Collection Method / Collectio n Time Received Time / Laterality Volume Narrative 04/08/2018 10:29 AM POWDER CORE TESTER Breanna Roblero MD ? 04/08/2018 10:29 AM [...] to the Cardiac E lectrophysiology Laboratory at [facility] on 04/08/2018. ??I determined this patient to [...] and the groin areas were prepped and angel ped in the usual sterile fashion. ??Under [...] For mapping and ablation we used a Cryoportense Navistar catheter with F/J curve and 4 [...] STA TE (measured in msec): RR: 660 WA: 117 QRS: 92 QT: 368 AH: 60 [...] Breanna Roblero MD CV ELECTROPHYSIOLOGY ORD ERABLES EKG 12-lead, tracing only (04/08/2018 7:04 AM POWDER CORE TESTER) [facility] Method Time Signature Interpretation ECG Click View RADIOLOGY Image link RESULTS to view waveform and result Specimen (Source) Anatomical Collection Method Collection Time Re ceived Time Location / / Volume Laterality 04/08/2018 7:04 AM POWDER CORE TESTER Breanna Roblero MD ECG ORDERABLES Performing Organization Address City/State/ZIP Code Phon e Number RADIOLOGY RESULTS HCG quantitative (04/08/2018 6:53 AM POWDER CORE TESTER) athologist Signature HCG Quantitative <1 0 - 5 IU/L 04/08/2018 [place] Serum 7:23 AM [facility] Specimen Anatomical Collection Method Collection Time Receive d Time (Source) Location / / Volume Laterality Blood specimen 04/08/2018 6:53 AM 018 6:54 (specimen) POWDER CORE TESTER AM POWDER CORE TESTER Breanna Roblero MD LAB - BLOOD ORDERABLES Performing Organization Address City/State/ZIP Code Phon e Number [facility] [address] [place] [place] [address] [facility] [address] [place] [address], U [phone] CBC with platelets (04/08/2018 6:53 AM POWDER CORE TESTER) athologist Signature WBC 5.8 4.0 - 11.0 04/08/2018 [facility] 10e9/L 7:01 AM [facility] RBC Count 4.51 3.8 - 5.2 04/08/2018 [facility] 10e12/L 7:01 AM [facility] Hemoglobin 14.1 11.7 - 04/08/2018 [facility] 15.7 g/dL 7:01 AM [facility] Hematocrit 41.1 35.0 - 04/08/2018 [facility] 47.0 % 7:01 AM [facility] MCV 91 78 - 100 04/08/2018 [facility] fl 7:01 AM [facility] MCH 31.3 26.5 - 04/08/2018 [facility] 33.0 pg 7:01 AM [facility] MCHC 34.3 31.5 - 04/08/2018 [facility] 36.5 g/dL 7:01 AM [facility] RDW 12.6 10.0 - 04/08/2018 [facility] 15.0 % 7:01 AM [facility] Platelet Count 283 150 - 450 04/08/2018 [facility] 10e9/L 7:01 AM [facility] Specimen Anatomical Collection Method Collection Time Receive d Time (Source) Location / / Volume Laterality Blood specimen 04/08/2018 6:53 AM 018 6:54 (specimen) POWDER CORE TESTER AM POWDER CORE TESTER Breanna Roblero MD LAB - BLOOD ORDERABLES Performing Organization Address City/State/ZIP Code Phon e Number [facility] [address] [address] [phone] [facility] [address] [place] [address], [place] [phone] (ABNORMAL) Basic metabolic panel (04/08/2018 6:53 AM POWDER CORE TESTER) athologist Signature Sodium 137 133 - 144 04/08/2018 [place] mmol/L 7:20 AM [facility] Potassium 3.4 3.4 - 5.3 04/08/2018 [place] mmol/L 7:20 AM [facility] Chloride 105 94 - 109 04/08/2018 [place] mmol/L 7:20 AM [facility] Carbon Dioxide 26 20 - 32 04/08/2018 [place] mmol/L 7:20 AM [facility] Anion Gap 6 3 - 14 04/08/2018 [place] mmol/L 7:20 AM [facility] Glucose 74 70 - 99 04/08/2018 [place] mg/dL 7:20 AM [facility] Urea Nitrogen 11 7 - 30 04/08/2018 [place] mg/dL 7:20 AM [facility] Creatinine 0.80 0.52 - 04/08/2018 [place] 1.04 mg/dL 7:20 AM [facility] GFR Estimate 84 >60 04/08/2018 [place] mL/min/1.7 7:[address] Comment: Non GFR Calc GFR Estimate If >90 >60 mL/min/1.7m2 04/08/2018 7:20 A [facility] Comment: GFR Calc Calcium 8.3 (L) 8.5 - 10.1 mg/dL 04/08/2018 7:20 AM [facility] Specimen Anatomical Collection Method Collection Time Receive d Time (Source) Location / / Volume Laterality Blood specimen 04/08/2018 6:53 AM 6:54 (specimen) POWDER CORE TESTER AM POWDER CORE TESTER Breanna Roblero MD LAB - BLOOD ORDERABLES Performing Organization Address City/State/ZIP Code Phon e Number [facility] [address] [place] [phone] [facility] [address] [address], [place] [phone] documented in this encounter Visit Diagnoses Diagnosis SVT (supraventricular tachycardia) (H) Other specified cardiac dysrhythmias documented in this encounter Administered Medications Inactive Administered Medications - up to 3 most recent administrations Medication Order MAR Action Action Date Dose Rate Site 0.45% sodium chloride infusion New Bag 04/08/2018 7:12 AM POWDER CORE TESTER 30 mL/hr at 30 mL/hr, Intravenous, CONTINUOUS, Start 2 hours pre-procedure and then per provider direction intra-procedure. Pre-procedurally for CAR electrophysiology studies., Cardiac Pre-procedure, Starting on Mackenzie 04/08/18 at 0645, Until [place] 04/08/18 at 1023 acetaminophen (TYLENOL) tablet 650 mg Given 04/08/2018 3:06 PM POWDER CORE TESTER 650 mg 650 mg, Oral, EVERY 4 HOURS PRN, mild pain, fever, Starting on [place] 04/08/18 at 1026, Post-procedurally for CAR electrophysiology studies. Maximum acetaminophen dose from all sources = 75 mg/kg/day not to exceed 4 grams/day., Cardiac Post-procedure fentaNYL (PF) (SUBLIMAZE) injection 25-50 Given 04/08/2018 10:05 AM POWDER CORE TESTER 50 mcg mcg 25-50 mcg, Intravenous, EVERY 2 MIN PRN, severe pain, or sedation, when verbally ordered by the provider during the procedure., Starting on [place]enzie 04/08/18 at 0841, Doses can be exceeded under direct oversight of patient by physician. For ordered IV doses 1-100 mcg give IV Push undiluted over a minimum of 3-5 minutes., Cardiac Intra-procedure Given 04/08/2018 9:30 AM POWDER CORE TESTER 50 mcg Given 04/08/2018 9:25 AM POWDER CORE TESTER 50 mcg isoproterenol (ISUPREL) 1 mg in D5W 50 m L infusion 0.03-0.2 mcg/kg/min ? 71.7 kg (6.453-43.02 mL/hr, rounded to 6.5-43 mL/hr), Intravenous, CONTINUOUS, Starting on Mackenzie 04/08/18 at 0945, For ra nge orders: start at lowest dose ordered. Titrate by 0.03 mcg/kg/min every 5 minut es to goal HR greater than 100 beats per minute. Notify prescriber if higher dose s are required to achieve heart rate goal. Protect from light. isoproterenol (ISUPREL) Rate/Dose Change 04/08/2018 9:55 AM 2 mcg/min 30 mL/hr 200 mcg/50 mL pre-mix POWDER CORE TESTER 0.5-20 mcg/min (7.5-300 mL/hr), Intravenous, CONTINUOUS PRN, when verbally ordered by the provider during the procedure. Titrate up as directed by the provider., Starting on Mackenzie 04/08/18 at 0957, Protect from light., Cardiac Intra-procedure Restarted 04/08/2018 9:50 AM POWDER CORE TESTER 1 mcg/min 15 mL/hr New Bag 04/08/2018 9:39 AM POWDER CORE TESTER 1 mcg/min 15 mL/hr lidocaine (LMX4) cream Topical, EVERY 1 HOUR PRN, pain, with VA D insertion or accessing implanted port., Starting on Mackenzie 04/08/18 at 1026, Do NOT give if patient has a history of allergy to any local anesthetic or any westley product. Apply 30 minutes prior to VAD insertion or port access. MAX Dose: 2.5 g (?? of 5 g tube), Cardiac Post-procedure lidocaine (PF) (XYLOCAINE) 1 % Given by Other 04/08/2018 8:48 AM POWDER CORE TESTER 15 mLs injection 10-30 mL 10-30 mL, Intradermal, ONCE PRN, for implants; for local anesthesia as verbally ordered by provider during the procedure., Starting on Mackenzie 04/08/18 at 0841, For 1 dose, The provider administers the medication. Dose may be into smaller doses for administration, Cardiac Intra-procedure lidocaine 1 % 1 mL 1 mL, Other, EVERY 1 HOUR PRN, mild pain with VAD insertion or accessing implanted port, Starting on Mackenzie 04/08/18 at 1026, Do NOT give if patient has a history of allergy to any local anesthetic or any westley product. MAX dose 1 mL subcutaneous OR intradermal in divided doses., Cardiac Post-procedu re midazolam (VERSED) injection 0.5-2 mg Given 04/08/2018 10:05 AM POWDER CORE TESTER 1 mg 0.5-2 mg, Intravenous, Administer over 2 Minutes, EVERY 2 MIN PRN, sedation, when verbally ordered by the provider during the procedure., Starting on Mackenzie 04/08/18 at 0841, Doses can be exceeded under direct oversight of patient by physician. For ordered IV doses 0.1-2.5 mg give IV Push slowly titrated over a minimum of 2 minutes. Dilute each 1mg in 4mL of NS., Cardiac Intra-procedure Given 04/08/2018 9:45 AM POWDER CORE TESTER 1 mg Given 04/08/2018 9:30 AM POWDER CORE TESTER 1 mg naloxone (NARCAN) injection 0.1-0.4 mg 0.1-0.4 mg, Intravenous, EVERY 2 MIN PRN , opioid reversal, Starting on Mackenzie 04/08/18 at 1026, For respiratory rate LESS than or EQUAL to 8. Partial reversal dose: 0.1 mg titrated q 2 minutes for Analgesia Si de Effects Monitoring Sedation Level of 3 (frequently drowsy, arousable, drifts to sleep during conversation).Full reversal dose: 0.4 mg bolus for Analgesia Side Effects Monitori ng Sedation Level of 4 (somnolent, minimal or no response to st imulation). For ordered IV doses 0.1-2mg give IVP. Give each 0.4mg over 15 second s in emergency situations. For non-emergent situations further dilute in 9mL of NS to facilitate t itration of response., Cardiac Post-procedure potassium chloride SA (K-DUR/KLOR-CON M) CR Given 04/08/2018 2:38 PM POWDER CORE TESTER 20 mEq tablet 20 mEq 20 mEq, Oral, ONCE, On Mackenzie 04/08/18 at 1100, For 1 dose, Give after Ablation DO NOT CRUSH sodium chloride (PF) 0.9% PF flush 3 mL 3 mL, Intracatheter, EVERY 1 HOUR PRN, line flush, Sta rting on Mackenzie 04/08/18 at 1026, for peripheral IV flush post IV meds, Cardiac Po st-procedure sodium chloride (PF) 0.9% PF flush 3 mL 3 mL, Intracatheter, EVERY 8 HOURS, First dose on Mackenzie 04/08/18 at 1030, And Q1H PRN, to lock peripheral IV dormant line., Cardiac Post -procedure documented in this encounter Active and Recently Administered Medications Times are shown in POWDER CORE TESTER. Scheduled Medication Order 04/06/2018 04/07/2018 04/08/2018 potassium chloride SA (K-DUR/KLOR-CON M) CR tablet 20 mEq (COMPL ETED) 1438 (Given - Provider: Annabelle Peterson, RN) 20 mEq, Oral, ONCE, Mack[place] 04/08/18 at 1100 , For 1 dose, Give after Ablation DO NOT CRUSH sodium chloride (PF) 0.9% PF flush 3 mL 1030 (Canceled Entry - Provider: Orders Generic Provider - Comment: Automatically canceled at discontinue of medication order) 3 mL, Intracatheter, EVERY 8 HOURS, Firs t dose on Mackenzie 04/08/18 at 1030, And Q1H PRN, to lock peripheral IV dormant line., Cardiac Post-procedure Continuous Medication Order 04/06/2018 04/07/2018 04/08/2018 0.45% sodium chloride infusion (CANCELED) 0712 (New Bag - Provider: Crys Enrique RN) at 30 mL/hr, Intravenous, CONTINUOUS, St art 2 hours pre-procedure and then per provider direction intra-procedure. Pre-procedurally for CAR electrophysiology studies., Cardiac Pre-procedure, Starting Mackenzie 04/08/18 at 0645, Until [place] 04/08/18 at 1023 isoproterenol (ISUPREL) 1 mg in D5W 50 mL infusion 0945 (Canceled Entry - Provider: Orders Generic Provider - Comment: Automatically canceled at discontinue of medication order) 0.03-0.2 mcg/kg/min ? 71.7 kg (6.453-43.02 mL/hr, rounded to 6.5-43 mL/hr), at 6.5-43 mL/hr, Intravenous, CONTINUOUS, Starting Mackenzie 04/08/18 at 0945, For range orders: start at lowest dose ordered. Titr ate by 0.03 mcg/kg/min every 5 minutes t o goal HR greater than 100 beats per minute. Notify prescriber if higher doses are required to achieve heart rate goal. Protect from light. PRN Medication Order 04/06/2018 04/07/2018 04/08/2018 acetaminophen (TYLENOL) tablet 650 mg 1506 (Given - Provider: Nito Blas, KELLIE) 650 mg, Oral, EVERY 4 HOURS PRN, mild pa in, fever, Starting Mackenzie 04/08/18 at 1026, Post-procedurally for CAR electrophysiology studies. Maximum acetaminophen dose from all sources = 75 mg/kg/day not to exceed 4 grams/day., Cardiac Post-procedure fentaNYL (PF) (SUBLIMAZE) injection 25-50 mcg (CANCELED) 0845 (Given - Provider: Davie Joya, RN)0925 (Given - Provider: Davie Joya, RN)0930 (Given - Provider: Davie Joya, RN)1005 (Given - Provider: Davie Joya, RN) 25-50 mcg, Intravenous, EVERY 2 MIN PRN, Starting [place] 04/08/18 at 0841, severe pain, or sedation, when verbally ordered by the provider during the procedure., Doses can be exceeded under direct oversigh t of patient by physician. For ordered I V doses 1-100 mcg give IV Push undiluted over a minimum of 3-5 minutes., Cardiac Intra-procedure isoproterenol (ISUPREL) 200 mcg/50 mL pre-mix (CANCELED) 0939 (New Bag - Provider: Dvaie Joya RN)0942 (Stopped - Provider: Davie Joya, RN)0950 (Restarted - Provider: Davie Joya RN)0955 (Rate/Dose Change - Provider: Davie Joya RN)0959 (Stopped - Provider: Davie Joya, RN) 0.5-20 mcg/min (7.5-300 mL/hr), Intraven ous, at 7.5-300 mL/hr, CONTINUOUS PRN, when verbally ordered by the provider during the procedure. Titrate up as directed by the provider., Starting Mackenzie 04/08/18 at 0957, Protect from light., Cardiac Intra-procedure lidocaine (LMX4) cream Topical, EVERY 1 HOUR PRN, pain, with VA D insertion or accessing implanted port., Starting Mackenzie 04/08/18 at 1026, Do NOT give if patient has a history of allergy to any local anesthetic or any westley pr oduct. Apply 30 minutes prior to VAD ins ertion or port access. MAX Dose: 2.5 g (?? of 5 g tube), Cardiac Post-procedure lidocaine (PF) (XYLOCAINE) 1 % injection 10-30 mL (COMPLETED) 0848 (Given by Other - Provider: Davie Joya, KELLIE) 10-30 mL, Intradermal, ONCE PRN, for imp lants; for local anesthesia as verbally ordered by provider during the procedure., Starting Mackenzie 04/08/18 at 0841, For 1 dose, The provider administers the medicat ion. Dose may be into smaller doses for administration, Cardiac Intra-procedure lidocaine 1 % 1 mL 1 mL, Other, EVERY 1 HOUR PRN, mild pain with VAD insertion or accessing implanted port, Starting Mackenzie 04/08/18 at 1026, Do NOT give if patient has a history of allergy to any local anesthetic or any ca ine product. MAX dose 1 mL subcutaneous OR intradermal in divided doses., Cardiac Post-procedure midazolam (VERSED) injection 0.5-2 mg (CANCELED) 0845 (Given - Provider: Davie Joya, KELLIE)0915 (Given - Provider: Davie Joya, KELLIE)0925 (Given - Provider: Davie Joya, KELLIE)0930 (Given - Provider: Davie Joya, RN)0945 (Given - Provider: Davie Joya, RN) 0.5-2 mg, Intravenous, Administer over 2 Minutes, EVERY 2 MIN PRN, Starting Mackenzie 04/08/18 at 0841, sedation, when verbally ordered by the provider during the procedure., Doses can be exceeded under [facility] 1005 (Given - Provider: Davie Joya, KELLIE) t oversight of patient by physician. For ordered IV doses 0.1-2.5 mg give IV Push slowly titrated over a minimum of 2 minutes. Dilute each 1mg in 4mL of NS., Cardiac Intra-procedure naloxone (NARCAN) injection 0.1-0.4 mg 0.1-0.4 mg, Intravenous, EVERY 2 MIN PRN , opioid reversal, Starting Mackenzie 04/08/18 at 1026, For respiratory rate LESS than or EQUAL to 8. Partial reversal dose: 0.1 mg titrated q 2 minutes for Analgesia S makenzie Effects Monitoring Sedation Level of 3 (frequently drowsy, arousable, drifts to sleep during conversation).Full reversal dose: 0.4 mg bolus for Analgesia Side Effects Monitoring Sedation Level of 4 (somnolent, minimal or no response to st imulation). For ordered IV doses 0.1-2mg give IVP. Give each 0.4mg over 15 seconds in emergency situations. For non- emergent situations further dilute in 9mL of N S to facilitate titration of response., Cardiac Post-procedure sodium chloride (PF) 0.9% PF flush 3 mL 3 mL, Intracatheter, EVERY 1 HOUR PRN, l ine flush, Starting Mackenzie 04/08/18 at 1026, for peripheral IV flush post IV meds, Cardiac Post-procedure documented in this encounter Additional Health Concerns Assessment Noted Time PHQ-9 Depression Total Score: 1 09/22/2017 7:43 AM CDT documented as of this encounter Care Teams Senior Writer Relationship Specialty Start Date End Date Sarah Montgomery, PCP - General Family Practice 10/21/11 [address] [place] [address] Sarah Montgomery, PCP - Assigned PCP 07/27/18 [address] [place] [address] Sarah Montgomery, Assigned PCP 03/15/17 10/17/20 [address] [place] [address] documented as of this encounter
--- OUTSIDE RECORDS SUMMARY | 2022-01-03 08:23 | XMS_ITS | Encounter Summary ---
:1985 Author Organization [place] Address [facility] [place] [address] Care Team Providers Name Role Phone Sarah Montgomery PA-C Primary Care Provider [phone] Reason for Visit Reason Comments Care Encounter Details Date Type Department Care Team Description 02/18/[address] [facility] Nadiya Bautista care in Visit Clinic [facility] second trimester [id number] [place] [address] (Primary Dx) [facility] [address] [facility] [phone] [place] [address] Social History Tobacco Use Types Packs/Day Years Used Date Former Smoker Smokeless Tobacco: Never Used Comments: quit smoking 2months ago Alcohol Use Standard Drinks/Week Comments Yes 0 (1 standard drink = 0.6 oz pure alcoho l) occasionally - weekends Alcohol Habits Answer Date Recorded How often do you have a drink containing Not asked alcohol? How many drinks containing alcohol do you have Not asked on a typical day when you are drinking? How often do you have six or more drinks on one Not asked occasion? Comment: occasionally - weekends 05/24/2015 Sex Assigned at Date Recorded Not on file documented as of this encounter Last Filed Vital Signs Vital Sign Reading Time Taken Comments Blood Pressure 108/60 02/18/2016 11:09 AM CDT Pulse 78 02/18/2016 11:09 AM CDT Temperature 36.9 ??C (98.4 ??F) 02/18/2016 11:09 AM CDT Respiratory Rate - - Oxygen Saturation 98% 02/18/2016 11:09 AM CDT Inhaled Oxygen Concentration - - Weight 69.4 kg (153 lb) 02/18/2016 11:09 AM CDT Height 167.6 cm (5' 6) 02/18/2016 11:09 AM CDT Body Mass Index 24.69 02/18/2016 11:09 AM CDT documented in this encounter Patient Instructions Patient InstructionsNadiya Bautista DO - 02/18/2016 11:37 AM CDT Return in [address] Nadiya Bautista DO Obstetrics and Gynecology [facility] [place] documented in this encounter Progress Notes Nadiya Bautista DO - 02/18/2016 11:01 AM CDT CC: Here for routine visit @ 18w3d HPI: doing well, feeling good LMP 10/12/2015 See OB flowsheet No vaginal bleeding, no LOF, no contractions ASSESSMENT/PLAN: Rhonda Tamayo is a 30 year old @ 18w3d wks EGA with EDC 07/18/16 who presents to the clinic for an new ob visit.?? 1) Intrauterine ??us today ?? 2) declined genetic testing Dr. Nadiya Bautista, ? DOOR TRIMMER ?? [facility] documented in this encounter Nursing Notes Eli Saucedo - 02/18/2016 11:10 AM CDT Chief Complaint Patient presents with ??? Care Initial BP 108/60 mmHg Pulse 78 Temp(Src) 98.4 ??F (36.9 ??C) (Oral) Ht 5' 6 (1.676 m) Wt 153 lb (69.4 kg) BMI 24.71 kg/m2 SpO2 98% LMP 10/12/2015 Estimated body mass index is 24.71 kg/(m^2) as calculated from the following: Height as of this encounter: 5' 6 (1.676 m). Weight as of this encounter: 153 lb (69.4 kg). BP completed using cuff size: regular right arm ALEXI Fleming documented in this encounter Plan of Treatment Not on filedocumented as of this encounter Visit Diagnoses Diagnosis care in second trimester - Prim steve documented in this encounter Additional Health Concerns Assessment Noted Time PHQ-9 Depression Total Score: 0 02/19/2016 7:19 AM CDT documented as of this encounter Care Teams Wash Oil Cooler Operator Relationship Specialty Start Date End Date Ronaldo-Sarah Doshi PA-C PCP - General Family Practice 10/21/11 [address] [place] [address] documented as of this encounter
--- OUTSIDE RECORDS SUMMARY | 2022-01-03 08:23 | XMS_ITS | Encounter Summary ---
:1985 Author Organization [place] Address [facility] [place] [address] Care Team Providers Name Role Phone Sarah Montgomery PA-C Primary Care Provider [phone] Encounter Details Date Type Department Care Team Description 05/17/2016 Telephone [facility] Angelique Xie, RN [address] [place] [address] Social History Tobacco Use Types Packs/Day Years [...] this encounter Miscellaneous Notes Telephone Encounter - Angelique Xie RN - 05/17/2016 10:05 PM CST Call Type: Triage Call Presenting Problem: ' Low right sided pain , in pelvic area , and in low back She is , 31 weeks . EVE 2-24 . Paged service delivery management consultant to her thru [employer] . 10:02 pm . Call [phone] . Triage Note: Guideline Title: : Labor, 20 to 37 Weeks Recommended Disposition: Call Provider Immediately Original Inclination: Did not know what to do Override Disposition: Intended Action: Call PCP/HCP Physician Contacted: No Constant or intermittent low back, abdominal pain or menstrual-like cramping lasting 1 hour or more ? YES Sudden gush or trickle of fluid from the vagina ? NO New or worsening signs and symptoms that may indicate shock ? NO Gestation more than 37 weeks AND signs of labor ? NO Gestation less than 20 weeks AND signs of labor ? NO Feeling of baby coming or wanting to push (urge to bear down) ? NO Unbearable abdominal/pelvic pain ? NO Umbilical cord or any part of the baby (head, bottom, arm or leg) at the opening of the vagina ? NO Gush or leakage of green or green-tinged or port-wine colored fluid (reddish and watery) from the vagina ? NO Contractions occurring 4 times every 20 minutes OR 8 contractions occurring in an hour. ? NO No relief between contractions ? NO Continuous bright red vaginal bleeding for more than 15 minutes (more than spotting) ? NO Gestation 20 weeks or more AND decreased movement compared to previous activity ? NO Physician Instructions: Care Advice: Do not give the patient anything to eat or drink. See another provider immediately if unable to talk with your provider within 1 hour. Follow the directions from your provider's service delivery management consultant resource if you are unable to speak to your provider directly. You may be directed to go to the hospital's Labor & Delivery department for evaluation. Another adult should drive. Lie on left side to improve circulation to the fetus. Call EMS 911 if any of these occur: profuse bright red vaginal bleeding continuous (without relaxation) abdominal pain the umbilical cord or any part in vagina bag of main coming through vagina feeling of wanting to push or have a bowel movement. STICS CLERK documented in this encounter Plan of Treatment Not on filedocumented as of this encounter Visit Diagnoses Not on filedocumented in this encounter Additional Health Concerns Assessment Noted Time PHQ-9 Depression Total Score: 0 02/19/2016 7:19 AM CDT documented as of this encounter Care Teams Lube Technician Relationship Specialty Start Date End Date Ronaldo-Sarah Doshi PA-C PCP - General Family Practice 10/21/11 [address] [place] [address] documented as of this encounter
--- OUTSIDE RECORDS SUMMARY | 2022-01-03 08:23 | XMS_ITS | Encounter Summary ---
:1985 Author Organization [place] Address [address] [place] [address] Care Team Providers Name Role Phone Sarah Montgomery PA-C Primary Care Provider Sarah Montgomery PA-C Unavailable Sarah Montgomery PA-C Unavailable Reason for Referral Consultation - Closed Specialty Diagnoses / Procedures Referred By Contact Refer red To Contact Diagnoses Rectal bleeding Sarah Montgomery COLON [facility] RECTAL SURGERY [facility] [address] [facility] [address] [place] [address] [place] [address] Fax: Referral ID Status Reason Start Date Expiration Date Visits Requ ested Visits Authorized [id number] Closed 09/21/2017 09/21/2018 1 1 Reason for Visit Reason Comments Rectal Problem Encounter Details Date Type Department Care Team Description 09/21/[address] [facility] [place], Rectal bleeding (Primary Dx); [facility] Sarah Aguilar PA-C Constipation, unspecified constipation t [facility] [id number] [place] [address] [place] [address] [phone] Social History Tobacco Use Types Packs/Day Years Used Date Former Smoker Smokeless Tobacco: Never Used Alcohol Use Standard Drinks/Week Comments No 0 (1 standard drink = 0.6 oz pure alcoho l) Sex Assigned at Date Recorded Not on file documented as of this encounter Last Filed Vital Signs Vital Sign Reading Time Taken Comments Blood Pressure 110/80 09/21/2017 1:03 PM CDT Pulse 87 09/21/2017 1:03 PM CDT Temperature 36.7 ??C (98 ??F) 09/21/2017 1:03 PM CDT Respiratory Rate 16 09/21/2017 1:03 PM CDT Oxygen Saturation 100% 09/21/2017 1:03 PM CDT Inhaled Oxygen Concentration - - Weight 71.6 kg (157 lb 12.8 oz) 09/21/2017 1:03 PM CDT Height 167.6 cm (5' 6) 09/21/2017 1:03 PM CDT Body Mass Index 25.47 09/21/2017 1:03 PM CDT documented in this encounter Patient Instructions Patient InstructionsAaSarah Betancourt PA-C - 09/21/2017 1:00 PM CDT (K62.5) Rectal bleeding (primary encounter diagnosis) Comment: Plan: COLORECTAL SURGERY REFERRAL Has had rectal bleeding for a couple months. At first was due to a hemorrhoid which she saw and thisresolved. Also gets abdominal cramping periodically. Was seen a month ago for cramping and diagnosedwith constipation and told to take mirelax which has helped. Well refer to colorectal for further eval. If not hemorrhoids please follow-up and may need co,onoscopy and GI referral documented in this encounter Progress Notes Sarah Motngomery PA-C - 09/21/2017 1:00 PM CDT SUBJECTIVE: Rhonda Tamayo is a 31 year old female who presents to clinic today for the following health issues: Hemorrhoids Onset: on and off ?? Description: Pain: no Itching: YES ?? Accompanying Signs & Symptoms: Blood streaked toilet paper: YES Blood in stool: YES Changes in stool pattern: YES ?? History: Any previous GI studies done:none Family History of colon cancer: no ?? Precipitating factors: None ?? Alleviating factors: None Has had rectal bleeding for a couple months. At first was due to a hemorrhoid which she saw and thisresolved. Also gets abdominal cramping periodically. Was seen a month ago for cramping and diagnosedwith constipation and told to take mirelax which has helped. Therapies Tried and outcome: none Problem list and histories reviewed & adjusted, as indicated. Additional history: as documented Current Outpatient Prescriptions Medication Sig Dispense Refill ??? valACYclovir (VALTREX) 500 MG tablet Take 1 tablet (500 mg) by mouth 2 times daily 6 tablet 3 ??? fluticasone (FLONASE) 50 MCG/ACT spray [place] 1-2 sprays into both nostrils daily (Patient not taking: Reported on 09/21/2017) 16 g 0 BP Readings from Last 3 Encounters: 09/21/17 110/80 12/21/16 110/67 08/20/16 102/60 Wt Readings from Last 3 Encounters: 09/21/17 157 lb 12.8 oz (71.6 kg) 08/20/16 155 lb 8 oz (70.5 kg) 07/07/16 178 lb (80.7 kg) Reviewed and updated as needed this visit by clinical staff Tobacco Allergies Med Hx Surg Hx Fam Hx Soc Hx Reviewed and updated as needed this visit by Provider ROS: Constitutional, HEENT, cardiovascular, pulmonary, gi and gu systems are negative, except as otherwise noted. OBJECTIVE: BP 110/80 (BP Location: Right arm, Patient Position: Chair, Cuff Size: Adult Regular) Pulse 87 Temp 98 ??F (36.7 ??C) (Oral) Resp 16 Ht 5' 6 (1.676 m) Wt 157 lb 12.8 oz (71.6 kg) LMP 09/05/2017 (Approximate) SpO2 100% ? No BMI 25.47 kg/m2 Body mass index is 25.47 kg/(m^2). GENERAL APPEARANCE: healthy, alert and no distress RESP: lungs clear to auscultation - no rales, rhonchi or wheezes CV: regular rates and rhythm, normal S1 S2, no S3 or S4 and no murmur, click or rub LYMPHATICS: no cervical adenopathy ABDOMEN: soft, nontender, without hepatosplenomegaly or masses and bowel sounds normal Rectal: no external hemorrhoids or fissure ASSESSMENT/PLAN: 1. Rectal bleeding - COLORECTAL SURGERY REFERRAL (K59.00) Constipation, unspecified constipation type Comment: Plan: advised to continue with mirelax until stooling daily and then 2 months more and slowly wean Please follow-up if symptoms fail to resolve or worsen Patient Instructions (K62.5) Rectal bleeding (primary encounter diagnosis) Comment: Plan: COLORECTAL SURGERY REFERRAL Has had rectal bleeding for a couple months. At first was due to a hemorrhoid which she saw and thisresolved. Also gets abdominal cramping periodically. Was seen a month ago for cramping and diagnosedwith constipation and told to take mirelax which has helped. Well refer to colorectal for further eval. If not hemorrhoids please follow-up and may need co,onoscopy and GI referral Sarah Montgomery PA-C [facility] documented in this encounter Nursing Notes Eli Saucedo - 09/21/2017 1:00 PM CDT Chief Complaint Patient presents with ??? Rectal Problem Initial BP 110/80 (BP Location: Right arm, Patient Position: Chair, Cuff Size: Adult Regular) Pulse 87 Temp 98 ??F (36.7 ??C) (Oral) Resp 16 Ht 5' 6 (1.676 m) Wt 157 lb 12.8 oz (71.6 kg) LMP 09/05/2017 (Approximate) SpO2 100% ? No BMI 25.47 kg/m2 Estimated body mass index is 25.47 kg/(m^2) as calculated from the following: Height as of this encounter: 5' 6 (1.676 m). Weight as of this encounter: 157 lb 12.8 oz (71.6 kg). Medication Reconciliation: complete Health Maintenance addressed: PHQ9 N/a ALEXI Fleming documented in this encounter Plan of Treatment Scheduled Referrals Name Type Priority Associated Diagnoses Order S chedule COLORECTAL SURGERY Referral Routine Rectal bleeding Ordere d: 09/21/2017 REFERRAL documented as of this encounter Visit Diagnoses Diagnosis Rectal bleeding - Primary Hemorrhage of rectum and anus Constipation, unspecified constipation t ype documented in this encounter Additional Health Concerns Assessment Noted Time PHQ-9 Depression Total Score: 1 09/22/2017 7:43 AM CDT documented as of this encounter Care Teams Faculty Research Physician Relationship Specialty Start Date End Date Sarah Montgomery, PCP - General Family Practice 10/21/11 [address] [address] [place] [address] Sarah Montgomery PCP - Assigned PCP 07/27/18 [address] [address] [place] [address] Sarah Montgomery, Assigned PCP 03/15/17 10/17/20 [address] [address] [place] [address] documented as of this encounter
--- OUTSIDE RECORDS SUMMARY | 2022-01-03 08:23 | XMS_ITS | Encounter Summary ---
:1985 Author Organization [place] Address [address] [place] [address] Care Team Providers Name Role Phone Sarah Montgomery PA-C Primary Care Provider [phone] Reason for Visit Reason Comments Care Encounter Details Date Type Department Care Team Description 06/02/2016 Office [facility] Nadiya Bautista (Primary Dx) Visit Clinic [address] [address] [facility] [phone] [place] [address] Social History Tobacco Use Types Packs/Day [...] Sign Reading Time Taken Comments Blood Pressure 110/70 06/02/2016 11:36 AM WIRE WINDER Pulse 73 06/02/2016 11:36 AM WIRE WINDER Temperature 36.7 ??C (98.1 ??F) 06/02/2016 11:36 AM WIRE WINDER Respiratory Rate - - Oxygen Saturation 98% 06/02/2016 11:36 AM WIRE WINDER Inhaled Oxygen Concentration - - Weight 78.1 kg (172 lb 3.2 oz) 06/02/2016 11:36 AM WIRE WINDER Height 167.6 cm (5' 6) 06/02/2016 11:36 AM WIRE WINDER Body Mass Index 27.79 06/02/2016 11:36 AM WIRE WINDER documented in this encounter Patient Instructions Patient InstructionsEve Sandoval CMA - 06/02/2016 11:34 AM CST Return to clinic in [address] Nadiya Bautista DO Obstetrics and Gynecology [facility] [place] [facility] documented in this encounter Progress Notes Eve Sandoval CMA - 06/02/2016 11:33 AM CST CC: Here for routine visit @ 33w3d HPI: Patient states baby is active and her fingers feel swollen each morning. Also feels more fatigued. BP 110/70 mmHg Pulse 73 Temp(Src) 98.1 ??F (36.7 ??C) (Oral) Ht 1.676 m (5' 6) Wt 78.109 kg(172 lb 3.2 oz) BMI 27.81 kg/m2 SpO2 98% LMP 10/12/2015 See OB flowsheet No vaginal bleeding, no LOF, no contractions This document serves as a record of the services and decisions personally performed and made by Nadiya Bautista DO. It was created on his/her behalf by Eve Sandoval, a trained pediatric medical assistant. The creation of this document is based the provider's statements to the pediatric medical assistant. Scribe Eve Sandoval 11:45 AM, June 02, 2016 ASSESSMENT/PLAN: Rhonda Tamayo is a 30 year old year old @ 33w3d wks EGA with 07/18/16 who presents to the clinic for an ob visit. 1) HSV, recurrent:?? one out break 1st tm, suppression 36 weeks on ?? 2) declined genetic testing ?? 3) Follow up in 2 weeks 4) Rx Valtrex Dr. Nadiya Bautista DO LICENSED NURSE PRACTITIONER [facility] The information in this document, created by the pediatric medical assistant for me, accurately reflects the services I personally performed and the decisions made by me. I have reviewed and approved this document for accuracy prior to leaving the patient care area. Nadiya Bautista DO 11:44 AM, 06/02/2016 WINDER documented in this encounter Nursing Notes Eli Saucedo - 06/02/2016 11:37 AM CST Chief Complaint Patient presents with ??? Care Initial BP 110/70 mmHg Pulse 73 Temp(Src) 98.1 ??F (36.7 ??C) (Oral) Ht 5' 6 (1.676 m) Wt 172 lb 3.2 oz (78.109 kg) BMI 27.81 kg/m2 SpO2 98% LMP 10/12/2015 Estimated body mass index is 27.81 kg/(m^2) as calculated from the following: Height as of this encounter: 5' 6 (1.676 m). Weight as of this encounter: 172 lb 3.2 oz (78.109 kg). BP completed using cuff size: regular right arm ALEXI Fleming WINDER documented in this encounter Plan of Treatment Not on filedocumented as of this encounter Visit Diagnoses Diagnosis Herpes - Primary Herpes simplex without mention of compli cation documented in this encounter Additional Health Concerns Assessment Noted Time PHQ-9 Depression Total Score: 0 02/19/2016 7:19 AM CDT documented as of this encounter Care Teams Nib Adjuster Relationship Specialty Start Date End Date Ronaldo-Sarah Doshi PA-C PCP - General Family Practice 10/21/11 [address] [place] [address] documented as of this encounter
--- OUTSIDE RECORDS SUMMARY | 2022-01-03 08:23 | XMS_ITS | Encounter Summary ---
:1985 Author Organization [facility] Address [address] [place] [address] Care Team Providers Name Role Phone Sarah Montgomery PA-C Primary Care Provider [phone] Encounter Details Date Type Department Care Team Description 07/07/2016 Telephone [facility] Rozina Garner, RN [address] [place] [address] Social History Tobacco Use Types Packs/Day Years Used Date Former Smoker Smokeless Tobacco: Never Used Alcohol Use Standard Drinks/Week Comments No 0 (1 standard drink = 0.6 oz pure alcoho l) Sex Assigned at Date Recorded Not on file documented as of this encounter Miscellaneous Notes Telephone Encounter - Rozina Garner, RN - 07/07/2016 12:04 AM CST Call Type: Triage Call Presenting Problem: 38 weeks , EVE 07/18/2016, Delivering at [facility]. ROM about 20 minutes ago. Clear fluid. a few Mild contractions, denies vaginal bleeding. Continued movement. order processor OB paged at [phone] to call patient at [phone] Triage Note: Guideline Title: : Signs of Labor, 37 Weeks or Greater Recommended Disposition: Call Provider Immediately Original Inclination: Wanted to speak with a nurse Override Disposition: Intended Action: Call PCP/HCP Physician Contacted: No Sudden gush or trickle of fluid from the vagina ? YES First childbirth with regular contractions for 1 hour and contractions are feeling stronger and closer together. ? NO New or worsening signs and symptoms that may indicate shock ? NO Feeling of baby coming or wanting to push (urge to bear down) ? NO Umbilical cord or any part of the baby (head, bottom, arm or leg) at the opening of the vagina ? NO Gestation 20 to 37 weeks ? NO Gush or leakage of green or green-tinged or port-wine colored fluid (reddish and watery) from the vagina ? NO Previous childbirth AND moderate intensity contractions less than 5 minutes apart for 1 hour or history of rapid delivery (less than 6 hours of labor) ? NO Decreased movement (less than 10 kicks/movements within two hours or a significant change in usual pattern compared to previous days) ? NO No relief between contractions ? NO Continuous bright red vaginal bleeding for more than 15 minutes (more than spotting) ? NO Physician Instructions: Care Advice: TROSTATIC PAINTER documented in this encounter Plan of Treatment Not on filedocumented as of this encounter Visit Diagnoses Not on filedocumented in this encounter Additional Health Concerns Assessment Noted Time PHQ-9 Depression Total Score: 0 02/19/2016 7:19 AM CDT documented as of this encounter Care Teams Portal Developer Relationship Specialty Start Date End Date Sarah Montgomery PA-C PCP - General Family Practice 10/21/11 [address] [place] [address] documented as of this encounter
--- OUTSIDE RECORDS SUMMARY | 2022-01-03 08:23 | XMS_ITS | Encounter Summary ---
:1985 Author Organization [facility] Address [address] [place] [address] Care Team Providers Name Role Phone Sarah Montgomery PA-C Primary Care Provider [phone] Reason for Visit Reason Onset Date Comments No Show 03/02/2017 Encounter Details Date Type Department Care Team Description 03/02/2017 Office Visit [facility] Derek Johnson NO SLOANE W (Primary Dx) [facility] [place] DE[place]ELO Jiménez [address] [place] [address] [facility], [address] [place], [place] [id number] [place] [address] (Wo rk) [id number] [phone] Social History Tobacco Use Types Packs/Day Years Used Date Former Smoker Smokeless Tobacco: Never Used Alcohol Use Standard Drinks/Week Comments No 0 (1 standard drink = 0.6 oz pure alcoho l) Sex Assigned at Date Recorded Not on file documented as of this encounter Progress Notes Brittaney Brunson MA - 03/02/2017 1:40 PM CDT This patient was a no show for this scheduled appointment. documented in this encounter Plan of Treatment Not on filedocumented as of this encounter Visit Diagnoses Diagnosis NO SHOW - Primary documented in this encounter Additional Health Concerns Assessment Noted Time PHQ-9 Depression Total Score: 0 08/21/2016 7:15 AM CDT documented as of this encounter Care Teams Spring Coiler Relationship Specialty Start Date End Date Sarah Montgomery PA-C PCP - General Family Practice 10/21/11 [address] [place] [address] documented as of this encounter
--- OUTSIDE RECORDS SUMMARY | 2022-01-03 08:23 | XMS_ITS | Encounter Summary ---
:1985 Author Organization [facility] Address [address] [place] [id number] Care Team Providers Name Role Phone Sarah Montgomery PA-C Primary Care Provider [phone] Reason for Visit Reason Comments Spontaneous Rupture of Membrane Auth/Cert Specialty Diagnoses / Procedures Referred By Contact Refer red To Contact road inspector Diagnoses Indication for care in labor or delivery state [place] [address] [place], [place] [address] Phone: Fax: Referral ID Status Reason Start Date Expiration Date Visits Requ ested Visits Authorized [id number] 1 1 Encounter Details Date Type Department Care Team Description 07/07/2016 - Hospital Encounter [facility] Morris Murray MD 07/09/2016 [facility] Oxana Wells MD [address] [facility] 100 131 160 [place], [place] [id number] [address] [place] [address] Social History Tobacco Use Types Packs/Day Years Used Date Former Smoker Smokeless Tobacco: Never Used Alcohol Use Standard Drinks/Week Comments No 0 (1 standard drink = 0.6 oz pure alcoho l) Sex Assigned at Date Recorded Not on file documented as of this encounter Last Filed Vital Signs Vital Sign Reading Time Taken Comments Blood Pressure 127/81 07/09/2016 6:00 PM SOUVENIR ASSEMBLER Pulse 81 07/09/2016 6:00 PM SOUVENIR [employer]SEM[employer] Temperature 36.7 ??C (98 ??F) 07/09/2016 6:00 PM SOUVENIR ASSEMBLER Respiratory Rate 18 07/09/2016 6:00 PM SOUVENIR ASSEMBLER Oxygen Saturation - - Inhaled Oxygen Concentration - - Weight 80.7 kg (178 lb) 07/07/2016 12:34 AM SOUVENIR ASSEMBLER Height 167.6 cm (5' 6) 07/07/2016 12:34 AM SOUVENIR ASSEMBLER Body Mass Index 28.73 07/07/2016 12:34 AM SOUVENIR ASSEMBLER documented in this encounter Discharge Instructions Discharge InstructionsWaleska Bernstein RN - 07/09/2016 10:58 AM CST Make an appointment to follow up with your primary OB in 6 weeks : [phone] [facility] Care: [phone] Vaginal Delivery Instructions Activity ?? Ask family and friends for help when you need it. ?? Do not place anything in your vagina for 6 weeks. ?? You are not restricted on other activities, but take it easy for a few weeks to allow your body to recover from delivery. You are able to do any activities you feel up to that point. ?? No driving until you have stopped taking your pain medications (usually two weeks after delivery). Call your health care provider if you have any of these symptoms: ?? Increased pain, swelling, redness, or fluid around your stiches from an episiotomy or perineal tear. ?? A fever above 100.4 F (38 C) with or without chills when placing a thermometer under your tongue. ?? You soak a sanitary pad with blood within 1 hour, or you see blood clots larger than a golf ball. ?? Bleeding that lasts more than 6 weeks. ?? Vaginal discharge that smells bad. ?? Severe pain, cramping or tenderness in your lower belly area. ?? A need to urinate more frequently (use the toilet more often), more urgently (use the toilet veryquickly), or it lugo when you urinate. ?? Nausea and vomiting. ?? Redness, swelling or pain around a vein in your leg. ?? Problems or a red or painful area on your breast. ?? Chest pain and cough or are gasping for air. ?? Problems coping with sadness, anxiety, or depression. If you have any concerns about hurting yourself or the baby, call your provider immediately. ?? You have questions or concerns after you return home. Keep your hands clean: Always wash your hands before touching your perineal area and stitches. This helps reduce your risk of infection. If your hands aren't dirty, you may use an alcohol hand-rub to clean your hands. Keep your nails clean and short. ENIR ASSEMBLER documented in this encounter Medications at Time of Discharge Medication Sig Dispensed Refills Start Date End Date Vit-Fe Take 1 tablet by 0 Fumarate-FA ( mouth daily Reported MULTIVITAMIN PLUS IRON) on 08/20/2016 27-0.8 MG TABS documented as of this encounter Progress Notes Bina Morgan MD - 07/09/2016 9:26 AM CST [facility] Ob[facility]etric[facility] Post- Progress Note Assessment and Plan: Assessment: Post- day #2 Normal spontaneous vaginal delivery L&D complications: None Doing well. No excessive bleeding Rubella non-immune Plan: Discharge later today MMR prior to discharge Interval History: Doing well. Pain is well-controlled. No fevers. No history of foul-smelling vaginal discharge. Good appetite. Denies chest pain, shortness of breath, nausea or vomiting. Vaginal bleeding is similar to a heavy menstrual flow. Ambulatory. well. Significant Problems: Patient Active Problem List Diagnosis ??? CARDIOVASCULAR SCREENING; LDL GOAL LESS THAN 160 ??? Papanicolaou smear of cervix with low grade squamous intraepithelial lesion (LGSIL) ??? HSV (herpes simplex virus) infection ??? Anxiety ??? Vitamin D deficiency ??? Constipation, unspecified constipation type ??? Encounter for supervision of normal first ??? Encounter for triage in patient ??? Indication for care in labor or delivery ??? state Review of Systems: The patient denies any chest pain, shortness of breath, excessive pain, fever, chills, purulent drainage from the wound, nausea or vomiting. Medications: All medications related to the patient's surgery have been reviewed Physical Exam: Patient Vitals for the past 12 hrs: BP Temp Temp src Pulse Resp 07/09/16 0843 122/79 98.3 ??F (36.8 ??C) Oral 93 18 07/09/16 0449 114/78 98.5 ??F (36.9 ??C) - 72 16 Uterine fundus is firm, non-tender and at the level of the umbilicus Data: Hemoglobin Date Value Ref Range Status 04/14/2016 12.5 11.7 - 15.7 g/dL Final No imaging studies have been ordered Bina Morgan MD ENIR ASSEMBLER Christina Mendiola MD - 07/08/2016 8:55 AM CST [facility] Post- Progress Note Assessment and Plan: Assessment: Post- day #1 Normal spontaneous vaginal delivery L&D complications: None Doing well. No excessive bleeding Pain well-controlled. Plan: Ambulation encouraged Pain control measures as needed Anticipate discharge tomorrow Interval History: Doing well. Pain is well-controlled. No fevers. No history of foul-smelling vaginal discharge. Good appetite. Denies chest pain, shortness of breath, nausea or vomiting. Vaginal bleeding is similar to a heavy menstrual flow. Ambulatory. well. Significant Problems: Patient Active Problem List Diagnosis ??? CARDIOVASCULAR SCREENING; LDL GOAL LESS THAN 160 ??? Papanicolaou smear of cervix with low grade squamous intraepithelial lesion (LGSIL) ??? HSV (herpes simplex virus) infection ??? Anxiety ??? Vitamin D deficiency ??? Constipation, unspecified constipation type ??? Encounter for supervision of normal first ??? Encounter for triage in patient ??? Indication for care in labor or delivery ??? state Review of Systems: The Review of Systems is negative other than noted in the HPI Medications: All medications related to the patient's surgery have been reviewed Current Facility-Administered Medications Medication ??? influenza quadrivalent (PF) vacc age 3 yrs and older (FLUZONE or Flulaval) injection 0.5 mL ??? lactated ringers infusion ??? lactated ringers BOLUS 500 mL ??? acetaminophen (TYLENOL) tablet 650 mg ??? naloxone (NARCAN) injection 0.1-0.4 mg ??? ondansetron (ZOFRAN) injection 4 mg ??? oxytocin (PITOCIN) injection 10 Units ??? Medication Instructions: misoprostol (CYTOTEC)- Nurse to discuss ordering with provider, if needed. Ordered via OB misoprostol (CYTOTEC) Hemorrhage PANEL ??? methylergonovine (METHERGINE) injection 200 mcg ??? carboprost (HEMABATE) injection 250 mcg ??? lidocaine 1 % 0.1-20 mL ??? ibuprofen (ADVIL/MOTRIN) tablet 800 mg ??? oxyCODONE-acetaminophen (PERCOCET) 5-325 MG per tablet 1 tablet ??? lidocaine 1 % 1 mL ??? lidocaine (LMX4) kit ??? nitrous oxide/oxygen 50/50 blend ??? medication instruction ??? lactated ringers BOLUS 250 mL ??? ePHEDrine injection 5 mg ??? nalbuphine (NUBAIN) injection 2.5-5 mg ??? naloxone (NARCAN) injection 0.1-0.4 mg ??? medication instruction ??? Opioid plan - medication instruction ??? BUPivacaine (MARCAINE) 0.125% in NaCl 0.9% 250 mL EPIDURAL infusion ??? fentaNYL Citrate (PF) (SUBLIMAZE) injection 100 mcg ??? lidocaine 1 % 1 mL ??? lidocaine (LMX4) kit ??? oxytocin (PITOCIN) 30 units in 500 mL 0.9% NaCl infusion ??? oxytocin (PITOCIN) 30 units in 500 mL 0.9% NaCl infusion ??? ibuprofen (ADVIL/MOTRIN) tablet 400-800 mg ??? acetaminophen (TYLENOL) tablet 650 mg ??? naloxone (NARCAN) injection 0.1-0.4 mg ??? senna-docusate (SENOKOT-S;PERICOLACE) 8.6-50 MG per tablet 1-2 tablet ??? [START ON 07/09/2016] bisacodyl (DULCOLAX) Suppository 10 mg ??? [START ON 07/09/2016] sodium phosphate (FLEET ENEMA) 1 enema ??? hydrocortisone 2.5 % cream ??? lanolin ointment ??? lactated ringers BOLUS 1,000 mL ??? oxytocin (PITOCIN) 30 units in 500 mL 0.9% NaCl infusion ??? oxytocin (PITOCIN) injection 10 Units ??? misoprostol (CYTOTEC) tablet 400 mcg ??? NO Rho (D) immune globulin (RhoGam) needed - mother Rh POSITIVE ??? oxyCODONE (ROXICODONE) IR tablet 5-10 mg ??? No MMR Needed - Assessment: Patient does not need MMR vaccine ??? Tdap (ipeazif-drivbsdepe-jiiic pertussis) (ADACEL) injection 0.5 mL Physical Exam: All vitals stable Vital signs: Temp: 98.4 ??F (36.9 ??C) Temp src: Oral BP: 111/69 Pulse: 72 Resp: 16 Height: 167.6 cm (5' 6) Weight: 80.7 kg (178 lb) Estimated body mass index is 28.73 kg/(m^2) as calculated from the following: Height as of this encounter: 1.676 m (5' 6). Weight as of this encounter: 80.7 kg (178 lb). Uterine fundus is firm, non-tender and at the level of the umbilicus Data: All laboratory data related to this surgery reviewed Hemoglobin Date Value Ref Range Status 04/14/2016 12.5 11.7 - 15.7 g/dL Final 12/11/2015 13.2 11.7 - 15.7 g/dL Final 05/24/2015 14.8 11.7 - 15.7 g/dL Final 10/05/2014 14.7 11.7 - 15.7 g/dL Final 12/13/2012 14.4 11.7 - 15.7 g/dL Final No imaging studies have been ordered Christina Mendiola MD ENIR ASSEMBLER documented in this encounter H&P Notes Oxana Wells MD - 07/07/2016 9:06 AM CST [facility] Labor and Delivery History and Physical Rhonda Tamayo Age: [age] year old Date of : 1985 Date of Admission: 07/07/2016 Primary care provider: Sarah Montgomery Chief Complaint: Rhonda Tamayo is a 30 year old w female Estimated Date of Delivery: Jul 18, 2016 who is 38w3d and being admitted for active labor management and SROM. history: OBSTETRIC HISTORY: Obstetric History T0 TAB0 SAB0 E0 M0 L0 # Outcome Date GA Lbr Kalin/2nd Weight Sex Delivery Anes PTL Lv 1 Current Obstetric Comments Menses are regular. History of abnormal paps. Has genital herpes EDC: Estimated Date of Delivery: 07/18/16 Labs: Lab Results Component Value Date ABO A 07/07/2016 RH Pos 07/07/2016 Neg 12/11/2015 HEPBANG Nonreactive 12/11/2015 CHPCRT 01/14/2016 Negative Negative for C. trachomatis rRNA by data warehouse consultant mediated amplification. A negative result by data warehouse consultant mediated amplification does not preclude the presence of C. trachomatis infection because results are dependent on proper and adequate collection, absence of inhibitors, and sufficient rRNA to be detected. GCPCRT 01/14/2016 Negative Negative for N. gonorrhoeae rRNA by data warehouse consultant mediated amplification. A negative result by data warehouse consultant mediated amplification does not preclude the presence of N. gonorrhoeae infection because results are dependent on proper and adequate collection, absence of inhibitors, and sufficient rRNA to be detected. TREPAB Negative 04/14/2016 HGB 12.5 04/14/2016 GBS Status: Lab Results Component Value Date GBS 06/23/2016 Negative No GBS DNA detected, presumed negative for GBS or number of bacteria may be below the limit of detection of the assay. Assay performed on incubated broth culture of specimen using [employer] real-time PCR. Active Problem List Patient Active Problem List Diagnosis ??? CARDIOVASCULAR SCREENING; LDL GOAL LESS THAN 160 ??? Papanicolaou smear of cervix with low grade squamous intraepithelial lesion (LGSIL) ??? HSV (herpes simplex virus) infection ??? Anxiety ??? Vitamin D deficiency ??? Constipation, unspecified constipation type ??? Encounter for supervision of normal first ??? Encounter for triage in patient ??? Indication for care in labor or delivery Medication Prior to Admission Prescriptions Prior to Admission Medication Sig Dispense Refill Last Dose ??? valACYclovir (VALTREX) 500 MG tablet Take 1 tablet (500 mg) by mouth 2 times daily 60 tablet 3 07/07/2016 at Unknown time ??? Vit-Fe Fumarate-FA ( MULTIVITAMIN PLUS IRON) 27-0.8 MG TABS Take 1 tablet by mouth daily 07/07/2016 at Unknown time . Maternal Past Medical History: Past Medical History Diagnosis Date ??? abnormal pap 06/02, 09/2011 '09 HSIL, colp neg, '12:ELZBIETA I ??? Herpes valtrex Family History: I have reviewed this patient's family history Social History: I have reviewed this patient's social history Review of Systems: C: NEGATIVE for fever, chills, change in weight E/M: NEGATIVE for ear, mouth and throat problems R: NEGATIVE for significant cough or SOB CV: NEGATIVE for chest pain, palpitations or peripheral edema Physical Exam: Vitals were reviewed All vitals stable Temp: 98.3 ??F (36.8 ??C) Temp src: Oral BP: 124/86 Pulse: 73 Resp: 18 Constitutional: awake, alert, cooperative, no apparent distress, and appears stated age Eyes: Lids and lashes normal, pupils equal, round and reactive to light, extra ocular muscles intact, sclera clear, conjunctiva normal ENT: Normocephalic, without obvious abnormality, atraumatic, sinuses nontender on palpation, external ears without lesions, oral pharynx with moist mucous membranes, tonsils without erythema or exudates, gums normal and good dentition. Neck: Supple, symmetrical, trachea midline, no adenopathy, thyroid symmetric, not enlarged and no tenderness, skin normal Hematologic / Lymphatic: no cervical lymphadenopathy and no supraclavicular lymphadenopathy Back: Symmetric, no curvature, spinous processes are non-tender on palpation, paraspinous muscles are non-tender on palpation, no costal vertebral tenderness Lungs: No increased work of breathing, good air exchange, clear to auscultation bilaterally, no crackles or wheezing Cardiovascular: Normal apical impulse, regular rate and rhythm, normal S1 and S2, no S3 or S4, and no murmur noted Abdomen: No scars, normal bowel sounds, gravid uterus dolan infant VTX EFW 7.5#, no masses palpated, no hepatosplenomegally Genitounirinary: External Genitalia: General appearance; normal Musculoskeletal: There is no redness, warmth, or swelling of the joints. Full range of motion noted. Motor strength is 5 out of 5 all extremities bilaterally. Tone is normal. Cervix: Membranes: SROM clear amniotic fluid Dilation: 2 Effacement: 90% Station:-2 Consistency: average Position: Posterior Presentation:Cephalic Heart Rate Tracing: reactive and reassuring, Tier 1 (normal) Tocometer: external monitor, inadequate and beginning to increase in freq and intensity Assessment: Rhonda Tamayo is a 38w3d female admitted with active labor management, SROM and pit augprn clinical pelvimetry adequate to my exam. Plan: Admit - see IP orders Observation Anticipate Pit aug and epidural prn Oxana Wells MD ENIR ASSEMBLER documented in this encounter Miscellaneous Notes Note - Carla Doshi RN - 07/09/2016 2:14 PM CST LC to see patient and assist with latch. Hand expression was also demonstrated and good results noted. Infant tends to become sleepy with . Awakening techniques were reviewed and she was encouraged to use hand expression post circ today if needed while he is expected to be a little sleepy. No other concerns noted. Nipple shield at bedside not needed at this time. ENIR ASSEMBLER Plan of Care - Waleska Bernstein RN - 07/09/2016 12:30 PM CST Problem: Goal Outcome Summary Goal: Goal Outcome Summary Outcome: Adequate for Discharge Date Met: 07/09/16 VSS and meeting expected goals this shift. infant, calls for assistance with latch as needed. Pt states infant is latching better on the left breast than right, no longer using the nippleshield. Saw today - see note. Encouraged pt to continue to call for any assistance. Up ad jessica and independent with self and cares. FOB supportive at the bedside. Bonding with infant and attentive to infant's needs. AVS education completed with pt. Pt verbalized understanding of the discharge instructions and states she has no further questions at this time. All education completed. Will discharge to home with infant and significant other after 's circumcision, to be dis charged after [address] Gooden - see note. ENIR ASSEMBLER Plan of Care - Brenda Garcia RN - 07/09/2016 6:01 AM CST Problem: Goal Outcome Summary Goal: Goal Outcome Summary Outcome: Improving VSS. Independent with cares for self and infant. FOB at bedside and supportive. Pain managed using ibuprofen. , calling once this shift for assistance, tearful. Pt was reassured and encouraged to call for assistance. ENIR ASSEMBLER Plan of Care - Yvette Campos RN - 07/08/2016 9:42 PM CST Problem: Goal Outcome Summary Goal: Goal Outcome Summary Outcome: Improving Doing well with self and infant cares, breast feeding independently. Declines offers of pain medication this shift. Denies difficulty voiding. FOB present and supportive. ENIR ASSEMBLER Plan of Care - Waleska Bernstein RN - 07/08/2016 12:27 PM CST Problem: Goal Outcome Summary Goal: Goal Outcome Summary Outcome: Improving VSS and meeting expected goals. checks WDL - see flowsheet. Up ad jessica and independent with self and cares. Tolerating a general diet, voiding without any complications. Pain adequately managed per patient with ibuprofen this shift. infant, called once this shift for help with latch. Encouraged pt to continue to call for any assistance. FOB supportive at the bedside. Bonding with and attentive to 's needs. Continue to monitor. ENIR ASSEMBLER Plan of Care - Brenda Garcia RN - 07/08/2016 3:56 AM CST Problem: Goal Outcome Summary Goal: Goal Outcome Summary Outcome: Improving Data: Vital signs within normal limits. checks within normal limits - see flow record. Patient eating and drinking normally. Patient able to empty bladder independently and is up ambulating with 1 assist. No apparent signs of infection. no repair. Patient performing self cares and is able to care for infant with help of FOB. Action: Patient denies pain and declines pain medication. Patient stated she was comfortable. Patient education done about orientation to unit and . See flow record. Response: Positive attachment behaviors observed with infant. Support persons spouse present. Plan: Anticipate discharge on 07/09/2016. ENIR ASSEMBLER L&D Delivery Note - Oxana Wells MD - 07/07/2016 11:24 PM CST OB Vaginal Delivery Note Rhonda Tamayo Age: [age] year old Date of : 1985 GA: 38w3d GP: Labor Complications: None EBL: mL QBL: 45 mL Delivery Type: Vaginal, Spontaneous Delivery ROM to Delivery Time: 23h 29m Morral Weight: 1 Minute 5 Minute 10 Minute Totals: 8 9 Delivery Details: Rhonda Tamayo, a 30 year old female delivered a viable infant with apgars of 8 and 9 . Patient was fully dilated and pushing after hours minutes in active labor. Delivery was via vaginal, spontaneous delivery to a sterile field under epidural anesthesia. delivered in vertex middle occiput anterior position. Anterior and posterior shoulders delivered without difficulty. The cord wasclamped, cut twice and 3 vessels were noted. Cord blood was obtained in routine fashion with the following disposition: lab . Cord complications: nuchal Placenta delivered at 07/07 11:11 PM . Placental disposition was Hospital disposal . Fundal massage performed and fundus found to be firm. Episiotomy: none Perineum, vagina, cervix were inspected, and the following lacerations were noted: Perineal lacerations: 1st Any lacerations were repaired in the usual fashion using none. Excellent hemostasis was noted. Needle count correct. Infant and patient in delivery room in good and stable condition. Labor Event Times Labor onset date: 07/07/16 Onset time: 6:12 PM Dilation complete date: 07/07/16 Complete time: 9:25 PM Start pushing date/time: 07/07/2016 2137 Labor Events labor?: No Labor Type: Spontaneous Antibiotics received during labor?: No Rupture identifier: Rupture 1 Rupture date/time: 07/06/16 2340 Rupture type: Spontaneous rupture of membranes prior to induction Fluid color: Clear Fluid odor: Normal Delivery/Placenta Date and Time Delivery Date: 07/07/16 Delivery Time: 11:09 PM Placenta Date/Time: 07/07/2016 11:11 PM Oxytocin given at the time of delivery: after delivery of placenta Vaginal Counts Initial count performed by 2 team members: Two Team Members Dr roshan Islas, RN [place] [facility] [place] [employer] Instruments Initial counts 2 5 Added to count Final counts 2 5 Placed during labor Accounted for at the end of labor NA NA NA Final count performed by 2 team members: Two Team Members Dr. Roshan Renner RN Final count correct?: Yes Apgars Living status: Yes 1 Minute 5 Minute 10 Minute 15 Minute 20 Minute Skin color: 0 1 Heart rate: 2 2 Reflex irritability: 2 2 Muscle tone: 2 2 Respiratory effort: 2 2 Total: 8 9 Apgars assigned by: HOLLEY Renner RN Cord Vessels: 3 Vessels Complications: Nuchal Cord Blood Disposition: Lab Gases Sent?: No Morral Resuscitation Methods: None Skin to Skin and Feeding Plan Skin to skin initiation date/time: 07/07/16 2311 Skin to skin with: Mother Skin to skin end date/time: How do you plan to feed your baby: Labor Events and Shoulder Dystocia Tracing Prior to Delivery: Category 1 Shoulder dystocia present?: Neg Delivery (Maternal) (Provider to Complete) ([id number]) Episiotomy: None Perineal lacerations: 1st Repaired?: No Vaginal laceration?: No Cervical laceration?: No Mother's Information Mother: HamiltonRhonda whyte #[id number] Start of Mother's Information IO Blood Loss 07/07/16 1812 - 07/07/16 2324 Mom's I/O Activity End of Mother's Information Mother: HamiltonRhonda whyte #[id number] Delivery - Provider to Complete ([id number]) Delivering clinician: OXANA WELLS Attempted Delivery Types (Choose all that apply): Spontaneous Vaginal Delivery Delivery Type (Choose the 1 that will go to the History): Vaginal, Spontaneous Delivery Placenta Delayed Cord Clamping: Done Date/Time: 07/07/2016 11:11 PM Removal: Spontaneous Disposition: Hospital disposal Anesthesia Method: Epidural Cervical dilation at placement: 4-7 Presentation and Position Presentation: Vertex Position: Middle Occiput Anterior Oxana Wells MD ENIR ASSEMBLER Provider Notification - Holley Aceves RN - 07/07/2016 9:29 PM CST 07/07/169 Provider Notification Provider Name/Title Dr Wells Method of Notification Phone Request Evaluate - Remote MD called for update. Notified that pt is 10/100/0 and not feeling pressure. MD would still like pt to start pushing. ENIR ASSEMBLER Provider Notification - Holley Aceves RN - 07/07/2016 9:05 PM CST 07/07/162104 Provider Notification Provider Name/Title Dr Wells Method of Notification Phone Request Evaluate - Remote MD notified of SVE. Ok to labor down if needed. Call when ready for delivery. ENIR ASSEMBLER Provider Notification - Holley Aceves RN - 07/07/2016 4:41 PM CST 07/07/16 1640 Provider Notification Provider Name/Title Dr Wells Method of Notification Phone Request Evaluate - Remote called to floor for update on pt. Notified that pt is on 3ml/units of pitocin, elidia every 2-4 minutes, category 1 tracing, and that pt has received 3 doses of fentanyl. Discussed that our plan is to administer 1 more dose of fentanyl when pt is ready and then look at getting an epidural after that. No new orders, states to continue with current plan. MD is director of vocational training all night. ENIR ASSEMBLER Provider Notification - Alona Dash RN - 07/07/2016 8:34 AM CST 07/07/16 0830 Provider Notification Provider Name/Title Roshan Method of Notification In Department MD in department and updated on SVE. No new orders at this time. Will continue to monitor. ENIR ASSEMBLER Plan of Care - Juanita Burgos RN - 07/07/2016 7:25 AM CST Bedside report given to KELLIE Cardona. Care transferred at this time. ENIR ASSEMBLER Provider Notification - Juanita Burgos RN - 07/07/2016 5:53 AM CST 07/07/16 0553 Provider Notification Provider Name/Title Dr. Murray Method of Notification Phone Request Evaluate - Remote Notification Reason Status Update;SVE Dr. Murray updated on pt status, SVE of 1/50/-2, hays score of 5, some bloody show with SVE, UC's q2-7min, pt reports as cramping. Dr. Murray verbalized understanding, ordered 25mcg misoprostol PO TAYLA. Will update pt on POC and continue to monitor. ENIR ASSEMBLER Plan of Care - Juanita Burgos RN - 07/07/2016 2:25 AM CST Attempting Shyla placement from 0155 to 0225. Unable to trace FHR with Shyla Monitor. External US and toco replaced after attempt. ENIR ASSEMBLER Provider Notification - Juanita Burgos RN - 07/07/2016 1:22 AM CST 07/07/16 0122 Provider Notification Provider Name/Title Dr. Murray Method of Notification Phone Request Evaluate - Remote Notification Reason Patient Arrived;Status Update Dr. Murray updated on pt arrival, gestational age, G&P, pt complaint (see admitting note), SROM for clear fluid at 2340 with + amnisure, UC's q2-5 with pt reporting them as cramps, GBS-, FHR Cat. I.Discussed SVE and hays score. Dr. Murray verbalized understanding. Intrapartum orders received, ordered to monitor pt and see if she goes in to active labor without intervention. Ordered to re-evaluate SVE at 0530 and update MD if pt not laboring on her own at that point. Will update pt on POC and continue to monitor. ENIR ASSEMBLER Plan of Care - Juanita Burgos RN - 07/07/2016 12:30 AM CST Data: Patient presented to [facility] at 0030. Reason for maternal/ assessment per patient is SROM. Patient reports a clear gush of fluid at 2340 on 07/06/16. Patient is a . record reviewed. has been uncomplicated thus far. Gestational Age 38.3. VSS. movement present. Patient denies contractions, backache, abnormal vaginal discharge, pelvic pressure, UTI symptoms, GI problems, bloody show, vaginal bleeding, edema, headache, visual disturbances, epigastric or URQ pain, abdominal pain. Support person, Devyn, is present. Action: Verbal consent for EFM. Triage assessment completed. Bill of rights reviewed. Response: Patient verbalized agreement with plan. Will contact Dr Murray. ENIR ASSEMBLER documented in this encounter Plan of Treatment Not on filedocumented as of this encounter Procedures Procedure Name Priority Date/Time Associated Diagnosis Comme nts ABO AND RH STAT 07/07/2016 2:15 AM Results f or this SOU[employer]IR ASSEMBLER procedure are i n the results section. ANTI TREPONEMA STAT 07/07/2016 1:50 AM Results for this SOUVENIR ASSEMBLER procedure are i n the results section. RUPTURE OF Routine 07/07/2016 12:50 AM Results for this [facility] [employer]ER procedure are i n AMNISURE the results section. documented in this encounter Results ABO and Rh (07/07/2016 2:15 AM SOUVENIR ASSEMBLER) Analysis Performed At Patho logist Time Signature ABO A [facility] RH(D) Pos [facility] Specimen 07/10/2016 [facility] Specimen Anatomical Collection Method Collection Time Receive d Time (Source) Location / / Volume Laterality Blood specimen 07/07/2016 2:15 AM 017 2:26 (specimen) SOUVENIR ASSEMBLER AM SOUVENIR ASSEMBLER Morris Murray MD LAB - BLOOD BANK TEST ORDER Performing Organization Address City/[facility]/ZIP Code Phon e Number [facility] [address] [place], [place] [address] [place] [address] [address] [place], [place] [address], [facility] [phone] Anti Treponema (07/07/2016 1:50 AM SOUVENIR ASSEMBLER) Analysis Performed At Patho logist Time Signature Treponema Negative NEG [facility] MEDICAL Antibody [facility] Specimen Anatomical Collection Method Collection Time Receive d Time (Source) Location / / Volume Laterality Blood specimen 07/07/2016 1:50 AM 017 2:06 (specimen) SOUVENIR ASSEMBLER AM SOUVENIR ASSEMBLER Morris Murray MD LAB - BLOOD ORDERABLES Performing Organization Address City/[facility]/ZIP Code Phon e Number [facility] [address] [place] [address] [facility] (ABNORMAL) Rupture of membranes by Amnisure (07/07/2016 12:50 AM SOUVENIR ASSEMBLER) P athologist Signature Amnisure Positive (A) NEG [facility] Specimen (Source) Anatomical Collection Method Collection Time Re ceived Time Location / / Volume Laterality Cervicovaginal VAGINAL STRUCTURE 07/07/2016 12:50 02/1 07/2016 Secretions / Unknown AM SOUVENIR ASSEMBLER 12:58 AM SOUVENIR ASSEMBLER Morris Murray MD LAB - BODY FLUIDS ORDERABLES Performing Organization Address City/[facility]/ZIP Code Phon e Number [facility] [address] [place], [place] [address] [facility] [address] [place], [place] [address] [phone] documented in this encounter Visit Diagnoses Diagnosis Indication for care in labor or delivery Unspecified indication for care or inter vention related to labor and delivery, unspecified as to episode of care state Routine follow-up documented in this encounter Administered Medications Inactive Administered Medications - up to 3 most recent administrations Medication Order MAR Action Action Date Dose Rate Site acetaminophen (TYLENOL) tablet 650 Given 07/08/2016 1:50 PM SOUVENIR ASSEMBLER 650 mg mg 650 mg, Oral, EVERY 4 HOURS PRN, mild pain, fever, greater than or equal to 38?? C /100.4?? F (oral) or 38.5?? C/ 101.4?? F (core)., Starting on Thu07/07/16 at 2327, Maximum acetaminophen dose from all sources = 75 mg/kg/day not to exceed 4 grams/day. bisacodyl (DULCOLAX) Suppository 10 mg 10 mg, Rectal, DAILY PRN, constipation, Starting on 07/09/16 at 0000 BUPivacaine (MARCAINE) 0.125% in NaCl New Bag 07/07/2016 5:[address] 15 mL/hr 0.9% 250 mL EPIDURAL infusion at 15 mL/hr, EPIDURAL, CONTINUOUS, Absolutely no anticoagulants, thrombolytics or antiplatelet medications or other opioid analgesics or other sedatives without prior notification of anesthesiology. For CADD cassettes, pharmacy to send epidural tubing set Ref # [id number] (5.1mL)., Starting on Thu07/07/16 at 1015, Until Thu07/09/16 at 0810 fentaNYL Citrate (PF) (SUBLIMAZE) injection Given 06/25 4:51 PM SOUVENIR ASSEMBLER 100 mcg 100 mcg 100 mcg, Intravenous, EVERY 1 HOUR PRN, moderate to severe pain, Starting on Thu07/07/16 at 1126 Given 07/07/2016 3:18 PM SOUVENIR ASSEMBLER 100 mcg Given 07/07/2016 1:36 PM SOUVENIR ASSEMBLER 100 mcg hydrocortisone 2.5 % cream Rectal, 3 TIMES DAILY PRN, hemorrhoids, Starting on Thu07/07/16 at 2327, Apply to hemorrhoids. Send only if nurse requests. ibuprofen (ADVIL/MOTRIN) tablet 400-800 mg Given 07/09/2016 8:33 AM SOUVENIR ASSEMBLER 800 mg 400-800 mg, Oral, EVERY 6 HOURS PRN, other, cramping, Starting on Thu07/07/16 at 2327, Max dose 3200 mg/day. Given 07/09/2016 12:27 AM SOUVENIR ASSEMBLER 800 mg Given 07/08/2016 8:41 AM SOUVENIR ASSEMBLER 800 mg influenza quadrivalent (PF) vacc Given 07/09/2016 8:34 AM SOUVENIR ASSEMBLER 0. 5 mLs Left Deltoid age 3 yrs and older (FLUZONE or Flulaval) injection 0.5 mL 0.5 mL, Intramuscular, PRIOR TO DISCHARGE, On Thu07/08/16 at 1000, For 1 dose, Administer when afebrile (less than 100.4??F) x 24 hours, or Prior to Discharge. If not administering when scheduled , change the due time by following the instructions in the reference link below. If patient refuses vaccine, chart as Vaccine Refused. lactated ringers BOLUS 1,000 mL New Bag 07/07/2016 5:25 PM SOUVENIR ASSEMBLER 1,000 mLs Intravenous, 1,000 mL, ONCE PRN, IF patient to have epidural or intrathecal narcotics and NOT pre-eclamptic, Starting on Thu07/07/16 at 0126, For 1 dose, IV bolus 15-30 min prior to epidural, then IV fluids per labor orders lactated ringers BOLUS 1,000 mL Intravenous, 1,000 mL, ONCE PRN, post-pa rtum hemorrhage, Starting on Thu07/07/16 at 2327, For 1 dose, Rate: 500-1000 mL/hr. lactated ringers infusion New Bag 07/07/2016 9:48 PM SOUVENIR ASSEMBLER 125 mL/hr at 125 mL/hr, Intravenous, CONTINUOUS, Starting on Thu07/07/16 at 0130, Until Thu07/09/16 at 0810 New Bag 07/07/2016 1:36 PM SOUVENIR ASSEMBLER 125 mL/hr lanolin ointment Topical, EVERY 1 HOUR PRN, dry skin, sor e nipples, Starting on Thu07/07/16 at 2327, Apply to sore nipples. lidocaine (LMX4) kit Topical, EVERY 1 HOUR PRN, pain, with VA D insertion or accessing implanted port., Starting on Thu07/07/16 at 1326, Do NOT give if patient has a history of allergy to any local anesthetic or any westley product. Apply 30 minutes prior to VAD insertion or port access. MAX Dose: 2.5 g (?? of 5 g t ube) lidocaine 1 % 1 mL 1 mL, Other, EVERY 1 HOUR PRN, mild pain with VAD insertion or accessing implanted port, Starting on Thu07/07/16 at 1326, Do NOT give if patient has a history of allergy to any local anesthetic or any westley product. MAX dose 1 mL subcutaneous OR intradermal in divided doses. measles, mumps and rubella vaccine Given 07/09/2016 10:11 AM SOUVENIR ASSEMBLER 0.5 mLs Left Arm (MMR) injection 0.5 mL 0.5 mL, Subcutaneous, PRIOR TO DISCHARGE, Starting on Thu07/09/16 at 1000, For 1 dose Medication Instructions: misoprostol (CYTOTEC)- Nurse to discuss ordering with provider, if needed. Ordered via OB mis oprostol (CYTOTEC) Hemorrhage PANEL CONTINUOUS PRN, Starting on Thu07/07/16 at 0126, Until Thu07/09/16 at 2304, Nurse to discuss ordering with provider, if ne eded. Ordered via OB misoprostol (CYTOTEC) Hemorrhage PANEL ([id number]) misoprostol (cervical ripening) (CYTOTEC) Given 07/07/2016 6:05 AM SOUVENIR ASSEMBLER 25 mcg quarter-tab 25 mcg 25 mcg, Oral, ONCE, On Thu07/07/16 at 0600, For 1 dose misoprostol (CYTOTEC) tablet 400 mcg 400 mcg, Oral, ONCE PRN, hemo rrhage, Starting on Thu07/07/16 at 2327, For 1 dose naloxone (NARCAN) injection 0.1-0.4 mg 0.1-0.4 mg, Intravenous, EVERY 2 MIN PRN, opioid rever deuce, for respiratory rate less than or equal to 8, Starting on Thu07/07/16 at 2327, For respiratory rate LESS than or EQUAL to 8. Partial reversal dose: 0.1 mg titr ated q 2 minutes for Analgesia Side Effects Monitoring Sedation Level of 3 (frequently drowsy, arousable, drifts to sleep during conver sation).Full reversal dose: 0.4 mg bolus for Analgesia Side Effects Monitoring Se dation Level of 4 (somnolent, minimal or no response to stimulation). nitrous oxide/oxygen 50/50 blend Inhalation, CONTINUOUS PRN, episodic bhavik lgesia, Starting on Thu07/07/16 at 0127, Only to be self-administered by patient. Patient Agreement for the Administration of Nitrous Oxide during Labor/Immediate per iod must be signed by patient prior to starting nitrous oxide/oxygen blend. ~Nitrous oxide is contraindicated if the patient has received opioid, be nzodiazepine or other sedative medication in the previous 2 ho urs. ~Precaution: If patient has received other medications with sedative side eff ects such as diphenhydramine, hydroxyzine, prochlorperazine or zolpidem assess level of sedation carefully before starting nitrous oxide. No MMR Needed - Assessment: Patient does not need MMR vaccine CONTINUOUS PRN, Starting on Thu07/07/16 at 2328, Until Thu07/09/16 at 2304, Assessment: Patient does not need MMR immunization NO Rho (D) immune globulin (RhoGam) need ed - mother Rh POSITIVE CONTINUOUS PRN, Starting on Thu07/07/16 at 2328, Until Thu07/09/16 at 2304 oxyCODONE (ROXICODONE) IR tablet 5-10 mg 5-10 mg, Oral, EVERY 3 HOURS PRN, modera te to severe pain, Starting on Thu07/07/16 at 2328 oxytocin (PITOCIN) 30 units in New Bag 07/07/2016 11:14 PM SOUVENIR ASSEMBLER 340 mL/hr 340 mL/hr 500 mL 0.9% NaCl infusion 100-340 mL/hr, Intravenous, CONTINUOUS PRN, after delivery to treat or prevent uterine atony, Starting on Thu07/07/16 at 0126, Administer 340 mL/hr over 30 minutes for a total of 170 mL then decrease to 100 mL/hr until infusion complete (about 3.5 hours) or per provider direction. Start new bag at delivery. Discontinue or saline lock peripheral IV per nurse discretion. oxytocin (PITOCIN) 30 Rate/Dose Verify 07/07/2016 7:50 6 charlette-unit s/min 6 mL/hr units in 500 mL 0.9% PM SOUVENIR ASSEMBLER NaCl infusion 1-24 charlette-units/min (1-24 mL/hr), Intravenous, CONTINUOUS, Starting on Thu07/07/16 at 1330, Start infusion at 2 charlette-units/min. Increase by 1-2 mill-iunits/min every 30 minutes as clinically indicated until contractions are 2-3 minutes apart, lasting 45 to 60 seconds in duration to achieve labor progress. Max rate is 24 milliunits/min. Do NOT go higher without a provider order. If oxytocin (PITOCIN) infusion is discontinued and off for less than 30 minutes, restart infusion at half of previous oxytocin (PITOCIN) rate. If oxytocin (PITOCIN) infusion has been discontinued equal to or greater than 30 minutes, begin at initial dose. IF another cervical ripening medication is ordered wait 60 minutes after oxytocin (PITOCIN) infusion is stopped before administering cervical ripening medication. Rate/Dose Verify 07/07/2016 7:15 PM SOUVENIR ASSEMBLER 5 charlette-units/min 5 mL/hr Rate/Dose Verify 07/07/2016 6:45 PM SOUVENIR ASSEMBLER 4 charlette-units/min 4 mL/hr oxytocin (PITOCIN) 30 units in New Bag 07/07/2016 11:46 PM SOUVENIR ASSEMBLER 100 mL/hr 100 mL/hr 500 mL 0.9% NaCl infusion 100 mL/hr, Intravenous, CONTINUOUS, Starting on Thu07/07/16 at 2330, At 100 mL/hr to follow after initial oxytocin loading dose (340 mL/hr). Continue until infusion complete (about 3.5 hours) or per provider discretion. Begin after delivery of placenta; IV to continue until patient stable. Discontinue or saline lock per nurse discretion. oxytocin (PITOCIN) 30 units in 500 mL 0. 9% NaCl infusion 340 mL/hr, Intravenous, CONTINUOUS PRN, for hemorrhage UNTIL bleeding subsided, Starting on Thu07/07/16 at 232 7, When bleeding subsides decrease rate to 100 mL/hr. Notify provider immediately when infusion b egun. oxytocin (PITOCIN) injection 10 Units 10 Units, Intramuscular, ONCE PRN, hemorrha ge IF no IV access is available, Starting on Thu07/07/16 at 2327, For 1 dose senna-docusate (SENOKOT-S;PERICOLACE) Given 07/09/2016 8:[address] 2 tablets 8.6-50 MG per tablet 1-2 tablet 1-2 tablet, Oral, 2 TIMES DAILY, First dose on Thu07/07/16 at 2330, Start with 1 tablet PO BID, If no bowel movement in 24 hours, increase to 2 tablets po BID. Hold for loose stools. Given 07/08/2016 8:13 PM SOUVENIR ASSEMBLER 1 tablet Given 07/08/2016 8:41 AM SOUVENIR ASSEMBLER 2 tablets sodium phosphate (FLEET ENEMA) 1 enema 1 enema, Rectal, DAILY PRN, constipation , Starting on Thu07/09/16 at 0000, Use if bisacodyl not effective documented in this encounter Active and Recently Administered Medications Times are shown in SOUVENIR ASSEMBLER. Scheduled Medication Order 07/07/2016 07/08/2016 07/09/2016 influenza quadrivalent (PF) vacc age 3 y rs and older (FLUZONE or Flulaval) injection 0.5 mL (COMPLETED) 0834 (Given - Provider: Waleska Bernstein RN)1100 (Due - Provider: Waleska Bernstein RN) 0.5 mL, Intramuscular, PRIOR TO DISCHARG E, Thu07/08/16 at 1000, For 1 dose, Administer when afebrile (less than 100.4??F) x 24 hours, or Prior to Discharge. If not administering when scheduled , change the due time by following the instructio ns in the reference link below. If patient refuses vaccine, chart as Vaccine Refused. misoprostol (cervical ripening) (CYTOTEC) quarter-tab 25 mcg (COMPLETED) 604 (Given - Provider: Juanita Burgos RN) 25 mcg, Oral, ONCE, Thu07/07/16 at 0600, For 1 dose senna-docusate (SENOKOT-S;PERICOLACE) 8.6-50 MG per tablet 1 -2 tablet 0156 (Not Given - Provider: Brenda Garcia RN - Reason: Other - Comment: pt was in delivery)0841 (Given - Provider: Waleska Bernstein RN)2012 (Given - Provider: Shiloh Mantilla LPN) 0833 (Given - Provider: Waleska Bernstein RN)2100 (Canceled Entry - Provider: Orders Generic Provider - Comment: Automatically canceled at discontinue of medication order) 1-2 tablet, Oral, 2 TIMES DAILY, First d ose on Thu07/07/16 at 2330, Start with 1 tablet PO BID, If no bowel movement in 24 hours, increase to 2 tablets po BID. Hold for loose stools. Tdap (yguwgsr-rjvvntfjyl-apgkv pertussis) (ADACEL) injection 0.5 mL 1359 (Not Given - Provider: Waleska Bernstein RN - Reason: Other - Comment: Given in clinic within current per pt) 0.5 mL, Intramuscular, ONCE, Thu07/08/16 at 1000, For 1 dose, If not given during current , then it is administered immediately prior to discharge. Tdap is administered every pregnan cy irrespective of previous immunization history. To maximize maternal antibody response and passive antibody transfer to the infant, optimal timing is between 27 and 36 weeks gestation during the . Continuous Medication Order 07/07/2016 07/08/2016 07/09/2016 BUPivacaine (MARCAINE) 0.125% in NaCl 0.9% 250 mL EPID URAL infusion (CANCELED) 1740 (New Bag - Provider: Holley Aceves RN)2321 (Stopped - Provider: Kieran Galeana RN) at 15 mL/hr, EPIDURAL, CONTINUOUS, Absol utely no anticoagulants, thrombolytics or antiplatelet medications or other opioid analgesics or other sedatives without prior notification of anesthesiology. For CADD cassettes, pharmacy to send epidur al tubing set Ref # [id number] (5.1mL)., Starting Thu07/07/16 at 1015, Until Thu07/09/16 at 0810 lactated ringers infusion (CANCELED) 0428 (Canceled En try - Provider: Juanita Burgos RN)1336 (New Bag - Provider: Alona Dash RN)2148 (New Bag - Provider: Holley Aceves RN) at 125 mL/hr, Intravenous, CONTINUOUS, S tarting Thu07/07/16 at 0130, Until Thu07/09/16 at 0810 oxytocin (PITOCIN) 30 units in 500 mL 0.9% NaCl infusi on (CANCELED) 1336 (New Bag - Provider: Alona Dash RN)1415 (Rate/Dose Verify - Provider: Alona Dash RN)1542 (Rate/Dose Verify - Provider: Holley Aceves RN)1845 (Rate/Dose Verify - Provider: Holley Aceves RN) 1-24 charlette-units/min (1-24 mL/hr), Intra venous, at 1-24 mL/hr, CONTINUOUS, Starting Thu07/07/16 at 1330, Start infusion at 2 charlette-units/min. Increase by 1-2 mill-iunits/min every 30 minutes as clinical 1915 (Rate/Dose Verify - Provider: Holley Aceves RN)1950 (Rate/Dose Verify - Provider: Holley Aceves RN) ly indicated until contractions are 2-3 minutes apart, lasting 45 to 60 seconds in duration to achieve labor progress. Max rate is 24 milliunits/min. Do NOT go higher without a provider order. If oxytoc in (PITOCIN) infusion is discontinued an d off for less than 30 minutes, restart infusion at half of previous oxytocin (PITOCIN) rate. If oxytocin (PITOCIN) infusion has been discontinued equal to or gre ater than 30 minutes, begin at initial d ose. IF another cervical ripening medication is ordered wait 60 minutes after oxytocin (PITOCIN) infusion is stopped before administering cervical ripening medication. oxytocin (PITOCIN) 30 units in 500 mL 0.9% NaCl infusi on 234 (New Bag - Provider: Karley Thorne RN) 100 mL/hr, Intravenous, at 100 mL/hr, CO NTINUOUS, Starting Thu07/07/16 at 2330, At 100 mL/hr to follow after initial oxytocin loading dose (340 mL/hr). Continue until infusion complete (about 3.5 hours) or per provider discretion. Begin after delivery of placenta; IV to continue until patient stable. Discontinue or saline lock per nurse discretion. PRN Medication Order 07/07/2016 07/08/2016 07/09/2016 acetaminophen (TYLENOL) tablet 650 mg 13 50 (Given - Provider: Waleska Bernstein RN) 650 mg, Oral, EVERY 4 HOURS PRN, mild pa in, fever, greater than or equal to 38?? C /100.4?? F (oral) or 38.5?? C/ 101.4?? F (core)., Starting Thu07/07/16 at 2327, Maximum acetaminophen dose from all sources = 75 mg/kg/day not to exceed 4 grams/day. bisacodyl (DULCOLAX) Suppository 10 mg 10 mg, Rectal, DAILY PRN, constipation, Starting Thu07/09/16 at 0000 fentaNYL Citrate (PF) (SUBLIMAZE) injection 100 mcg (C ANCELED) 1129 (Given - Provider: Alona Dash, RN)1336 (Given - Provider: Alona Dash RN)1518 (Given - Provider: Holley Aceves, KELLIE)1651 (Given - Provider: Holley Aceves RN) 100 mcg, Intravenous, EVERY 1 HOUR PRN, Starting Thu07/07/16 at 1126, moderate to severe pain hydrocortisone 2.5 % cream Rectal, 3 TIMES DAILY PRN, hemorrhoids, Starting Thu07/07/16 at 2327, Apply to hemorrhoids. Send only if nurse requests. ibuprofen (ADVIL/MOTRIN) tablet 400-800 mg 2330 (Given - Provider: Karley Thorne, RN) 0841 (Given - Provider: Waleska Bernstein, RN) 0027 (Give n - Provider: Brenda Garcia RN)0833 (Given - Provider: Waleska Bernstein, RN) 400-800 mg, Oral, EVERY 6 HOURS PRN, oth er, cramping, Starting Thu07/07/16 at 2327, Max dose 3200 mg/day. lactated ringers BOLUS 1,000 mL (COMPLETED) 1725 (New Bag - Provider: Holley Aceves RN) Intravenous, 1,000 mL, ONCE PRN, IF yvette ent to have epidural or intrathecal narcotics and NOT pre-eclamptic, Starting Thu07/07/16 at 0126, For 1 dose, IV bolus 15-30 min prior to epidural, then IV fluids per labor orders lactated ringers BOLUS 1,000 mL Intravenous, 1,000 mL, ONCE PRN, post-pa rtum hemorrhage, Starting Thu07/07/16 at 2327, For 1 dose, Rate: 500-1000 mL/hr. lactated ringers BOLUS 250 mL Intravenous, 250 mL, ONCE PRN, other, hy potension, Starting Thu07/07/16 at 1009, For 1 dose, If no improvement in Blood Pressure with repositioning(if ordered), administer IV bolus as ordered. Treat for Systolic Blood Pressure less than 100 m mHg or drop in Blood Pressure by 20%. If unresponsive to Fluid Bolus, administer ePHEDrine (if ordered) or page Anesthesia. lanolin ointment Topical, EVERY 1 HOUR PRN, dry skin, sor e nipples, Starting Thu07/07/16 at 2327, Apply to sore nipples. lidocaine (LMX4) kit Topical, EVERY 1 HOUR PRN, pain, with VA D insertion or accessing implanted port., Starting Thu07/07/16 at 1326, Do NOT give if patient has a history of allergy to any local anesthetic or any westley pro duct. Apply 30 minutes prior to VAD inse rtion or port access. MAX Dose: 2.5 g (?? of 5 g tube) lidocaine 1 % 1 mL 1 mL, Other, EVERY 1 HOUR PRN, mild pain with VAD insertion or accessing implanted port, Starting Thu07/07/16 at 1326, Do NOT give if patient has a history of allergy to any local anesthetic or any kong ne product. MAX dose 1 mL subcutaneous OR intradermal in divide d doses. measles, mumps and rubella vaccine (MMR) injection 0.5 mL (COMPL ETED) 1011 (Given - Provider: Waleska Bernstein RN) 0.5 mL, Subcutaneous, PRIOR TO DISCHARGE , Starting Thu07/09/16 at 1000, For 1 dose medication instruction CONTINUOUS PRN, Starting Thu07/07/16 at 1009, Until Thu07/09/16 at 2304, -All epidural medications must be preservative free -All orders must be compounded in preservative free Normal Saline -Absolutely no anticoagulants, thrombolytics, or an tiplatelet medications or other opioid analgesics or other sedatives without prior notification of Anesthesia Service - All patients who receive epidural medications must have IV access. medication instruction CONTINUOUS PRN, Starting Thu07/07/16 at 1009, Until Thu07/09/16 at 2304, No antiplatelet or anticoagulant medications for 12 hours after catheter removed except for NSAIDS. Note to RN: Do not discontinu e this anesthesia order until 2 hours after epidural infusion di scontinued. Medication Instructions: misoprostol (CY TOTEC)- Nurse to discuss ordering with provider, if needed. Ordered via OB misoprostol (CYTOTEC) Hemorrhage PANEL CONTINUOUS PRN, Starting Thu07/07/16 at 0126, Until Thu07/09/16 at 2304, Nurse to discuss ordering with provider, if needed. Ordered via OB misoprostol (CYTOTEC) Hemorrhage PANEL ([id number]) misoprostol (CYTOTEC) tablet 400 mcg 400 mcg, Oral, ONCE PRN, hemo rrhage, Starting Thu07/07/16 at 2327, For 1 dose naloxone (NARCAN) injection 0.1-0.4 mg 0.1-0.4 mg, Intravenous, EVERY 2 MIN PRN , opioid reversal, for respiratory rate less than or equal to 8, Starting Thu07/07/16 at 2327, For respiratory rate LESS than or EQUAL to 8. Partial reversal dose : 0.1 mg titrated q 2 minutes for Analge kathy Side Effects Monitoring Sedation Level of 3 (frequently drowsy, arousable, drifts to sleep during conversation).Full reversal dose: 0.4 mg bolus for Analgesia Side Effects Monitoring Sedation Level of 4 (somnolent, minimal or no response to stimulation). nitrous oxide/oxygen 50/50 blend Inhalation, CONTINUOUS PRN, episodic bhavik lgesia, Starting Thu07/07/16 at 0127, Only to be self-administered by patient. Patient Agreement for the Administration of Nitrous Oxide during Labor/Immediate P ostpartum period must be signed by yvette ent prior to starting nitrous oxide/oxygen blend. ~Nitrous oxide is contraindicated if the patient has received opioid, benzodiazepine or other sedative medicatio n in the previous 2 hours. ~Precaution: If patient has received other medications with sedative side effects such as diphenhydramine, hydroxyzine, prochlorperazine or zolpidem assess level of sedation carefully before starting nitrous oxide. No MMR Needed - Assessment: Patient does not need MMR vaccine CONTINUOUS PRN, Starting Thu07/07/16 at 2328, Until Thu07/09/16 at 2304, Assessment: Patient does not need MMR immunization NO Rho (D) immune globulin (RhoGam) needed - mother Rh POSITIVE CONTINUOUS PRN, Starting Thu07/07/16 at 2328, Until Thu07/09/16 at 2304 Opioid plan - medication instruction CONTINUOUS PRN, Starting Thu07/07/16 at 1010, Until Thu07/09/16 at 2304, Do NOT give opioids and sedatives per OB provider orders. May give other medications per OB provider orders. oxyCODONE (ROXICODONE) IR tablet 5-10 mg 5-10 mg, Oral, EVERY 3 HOURS PRN, modera te to severe pain, Starting Thu07/07/16 at 2328 oxytocin (PITOCIN) 30 units in 500 mL 0.9% NaCl infusi on (COMPLETED) 2313 (New Bag - Provider: Kieran Galeana RN) 100-340 mL/hr, Intravenous, at 100-340 m L/hr, CONTINUOUS PRN, after delivery to treat or prevent uterine atony, Starting Thu07/07/16 at 0126, For 1 dose, Administer 340 mL/hr over 30 minutes for a total of 170 mL then decrease to 100 mL/hr un til infusion complete (about 3.5 hours) or per provider direction. Start new bag at delivery. Discontinue or saline lock peripheral IV per nurse discretion. oxytocin (PITOCIN) 30 units in 500 mL 0.9% NaCl infusion 340 mL/hr, Intravenous, at 340 mL/hr, CO NTINUOUS PRN, for hemorrhage UNTIL bleeding subsided, Starting 07/07/16 at 2327, When bleeding subsides decrease rate to 100 mL/hr. Notify provider immediately when infusion begun. oxytocin (PITOCIN) injection 10 Units 10 Units, Intramuscular, ONCE PRN, postp artum hemorrhage IF no IV access is available, Starting 07/07/16 at 2327, For 1 dose sodium phosphate (FLEET ENEMA) 1 enema 1 enema, Rectal, DAILY PRN, constipation , Starting Thu07/09/16 at 0000, Use if bisacodyl not effective documented in this encounter Additional Health Concerns Assessment Noted Time PHQ-9 Depression Total Score: 0 02/19/2016 7:19 AM CDT documented as of this encounter Care Teams School Manager Relationship Specialty Start Date End Date Sarah Montgomery PA-C PCP - General Family Practice 10/21/11 [address] [place] [address] documented as of this encounter
--- OUTSIDE RECORDS SUMMARY | 2022-01-03 08:23 | XMS_ITS | Encounter Summary ---
:1985 Author Organization [place] Address [facility] [place] [address] Care Team Providers Name Role Phone Sarah Montgomery PA-C Primary Care Provider [phone] Reason for Visit Reason Onset Date Comments Vaginal Discharge 07/02/2016 mucus plug Encounter Details Date Type Department Care Team Description 07/02/2016 Telephone [facility] Nadiya Bautista Vaginal Discharge [facility] DO [place] (mucus plug) [place] [address] [facility] [address] [place], [place] [address] [address] [place], [place] [phone] [address] (Work) [phone] Social History Tobacco Use Types Packs/Day Years [...] this encounter Miscellaneous Notes Telephone Encounter - Michelle Mayo - 07/02/2016 5:01 PM CST Called pt, left detailed vm relaying MD message below. Reviewed looking for baby to be moving 10 times in 1-2 hours and if unsure of baby movement may drink sugary drink such as OJ and lay on left sideto count. Instructed to call with questions/concerns to nurse advisor line. NG PRESS OPERATOR Telephone Encounter - Nadiya Bautista DO - 07/02/2016 4:32 PM CURING PRESS OPERATOR Please have her watch for contractions and if labor starts call back If the baby is moving well then ok to wait, labor could be soon but will have to wait For contractions 5 min apart for 1 hour, lasting [address] Nadiya Bautista DO Obstetrics and Gynecology [facility] NG PRESS OPERATOR Telephone Encounter - Michelle Mayo - 07/02/2016 2:39 PM CST Pt currently 37w5d. Pt called, reports she thinks she lost her mucus plug this AM. Had sensation of urinating and then when she went to BR and wiped had clear discharge with a small amount of yellowish-min. States she hadlower pelvic pain soon thereafter that felt like a dropping pain that was intense to the point shealmost felt like dropping to the floor. Denies contractions at this time and denies continued vaginal discharge. Had scant vaginal bleeding post pelvic exam yest, but no bleeding today. Please advise, thanks. NG PRESS OPERATOR documented in this encounter Plan of Treatment Not on filedocumented as of this encounter Visit Diagnoses Not on filedocumented in this encounter Additional Health Concerns Assessment Noted Time PHQ-9 Depression Total Score: 0 02/19/2016 7:19 AM CDT documented as of this encounter Care Teams Prop And Scenery Maker Relationship Specialty Start Date End Date Sarah Montgomery PA-C PCP - General Family Practice 10/21/11 [address] [place] [address] documented as of this encounter
--- OUTSIDE RECORDS SUMMARY | 2022-01-03 08:23 | XMS_ITS | Encounter Summary ---
:1985 Author Organization [place] Address [address] [facility] [place] [address] Care Team Providers Name Role Phone Sarah Montgomery PA-C Primary Care Provider Sarah Montgomery PA-C Unavailable Sarah Montgomery PA-C Unavailable Reason for Visit Reason Onset Date Comments No Show 08/24/2017 Encounter Details Date Type Department Care Team Description 08/24/2017 Office Visit [facility] Catalina Ahuja, JOSH ANTON W (Primary Dx) [employer] [address] [place] [facility] [address] [phone] [place], [place] [address] Social History Tobacco Use Types Packs/Day Years Used Date Former Smoker Smokeless Tobacco: Never Used Alcohol Use Standard Drinks/Week Comments No 0 (1 standard drink = 0.6 oz pure alcoho l) Sex Assigned at Date Recorded Not on file documented as of this encounter Progress Notes Devyn Young MA - 08/24/2017 10:45 AM CDT This patient was a no show for this scheduled appointment. documented in this encounter Plan of Treatment Not on filedocumented as of this encounter Visit Diagnoses Diagnosis NO SHOW - Primary documented in this encounter Additional Health Concerns Assessment Noted Time PHQ-9 Depression Total Score: 0 08/21/2016 7:15 AM CDT documented as of this encounter Care Teams Stainless Steel Finisher Relationship Specialty Start Date End Date Sarah Montgomery, PCP - General Family Practice 10/21/11 [address] [address] [place] [address] Sarah Montgomery, PCP - Assigned PCP 07/27/18 [address] [address] [place] [address] Sarah Montgomery, Assigned PCP 03/15/17 10/17/20 [place] [address] [place] [address] documented as of this encounter
--- OUTSIDE RECORDS SUMMARY | 2022-01-03 08:23 | XMS_ITS | Encounter Summary ---
:1985 Author Organization [place] Address [address] [place] [address]. [place] [address] Care Team Providers Name Role Phone Sarah Montgomery PA-C Primary Care Provider Reason for Visit Reason Comments Post Exam Encounter Details Date Type Department Care Team Description 08/20/2016 Office [facility] Nadiya Bautista follow-up (Primary Dx); [facility] [place] Encounter for initial prescription of co ntraceptive pills; [address] Screening for malignant neop lasm of cervix [address] [facility], [address] [phone] [address] (Work) [phone] Social History Tobacco Use Types Packs/Day Years Used Date Former Smoker Smokeless Tobacco: Never Used Tobacco Cessation: Counseling Given: No Alcohol Use Standard Drinks/Week Comments No 0 (1 standard drink = 0.6 oz pure alcoho l) Sex Assigned at Date Recorded Not on file documented as of this encounter Last Filed Vital Signs Vital Sign Reading Time Taken Comments Blood Pressure 102/60 08/20/2016 2:11 PM CDT Pulse 80 08/20/2016 2:11 PM CDT Temperature 36.9 ??C (98.4 ??F) 08/20/2016 2:11 PM CDT Respiratory Rate - - Oxygen Saturation - - Inhaled Oxygen Concentration - - Weight 70.5 kg (155 lb 8 oz) 08/20/2016 2:11 PM CDT Height - - Body Mass Index 25.1 07/07/2016 12:34 AM BRUSHING MACHINE OPERATOR documented in this encounter Patient Instructions Patient InstructionsNadiya Bautista DO - 08/20/2016 2:00 PM CDT Start Oral Contraceptive today , use back-up method for [address] Nadiya Bautista DO Obstetrics and Gynecology [facility] [place] documented in this encounter Progress Notes Nadiya Bautista DO - 08/20/2016 2:00 PM CDT . SUBJECTIVE: Shruti is here for a 6-week checkup. Delivery date was 07/07/16. She had a of a viable boy, weight 6 pounds 6 oz., with none complications. Since delivery, she have tried but stop. been breast feeding. She has no signs of infection, bleeding or other complications. She is not . We discussed contraceptions and she has chosen control but is unsure which type. She has had intercourse since delivery and complains of No discomfort. Patient screened for depression and complaints are NEGATIVE. Screening has also been completed for intimate partner violence. She notes that she is not bleeding any more and no pain. She notes that she is now using formula. She notes that she is unsure about birthcontrol because she has not used it for a while. She has used abirth control pill before. She only tore mildly and did not require stitches. This document serves as a record of the services and decisions personally performed and made by Dr. Nadiya Bautista DO. It was created on her behalf by Lupe Lassiter, a trained internist medical doctor md. The creation of this document is based the provider's statements to the internist medical doctor md. Lupe Lassiter August 20, 2016 2:18 PM EXAM: Today's Depression Rating was PHQ-9 SCORE 08/20/2016 Total Score - Total Score 0 Constitutional: healthy, alert and no distress Breast: breasts symmetric, no dominant or suspicious mass, no skin or nipple changes or no axillary adenopathy Cardiovascular: PMI normal. No lifts, heaves, or thrills. RRR. No murmurs, clicks gallops or rub Respiratory: Percussion normal. Good diaphragmatic excursion. Lungs clear Gastrointestinal: Abdomen soft, non-tender. BS normal. No masses, organomegaly Genitourinary: Normal external genitalia without lesions, tear has healed well, spec: vaginal tissues well rugated, healing well, cervix is normal, BM: uterus is back to normal, smooth, firm, mobile, adnexae without masses or enlargement Psychiatric: mentation appears normal and affect normal/bright ASSESSMENT: Normal exam after . Contraception: Counseled on ocps, iud, nuvaring, and depo-provera, patient would like OCPs, rx for Apri provided. Pap done today. PLAN: Return as needed or at time of next expected pap, pelvic, or breast exam. The information in this document, created by the internist medical doctor md for me, accurately reflects the services I personally performed and the decisions made by me. I have reviewed and approved this document for accuracy prior to leaving the patient care area. 08/20/2016 2:[address] Nadiya Bautista DO DIRECTOR OF SAFETY AND SECURITY [facility] documented in this encounter Miscellaneous Notes Addendum Note - January Soni - 08/20/2016 4:39 PM CDT Addended by: JANUARY SONI on: 08/20/2016 04:39 PM Modules accepted: Orders documented in this encounter Plan of Treatment Not on filedocumented as of this encounter Procedures Procedure Name Priority Date/Time Associated Diagnosis Comme nts PAP IMAGED THIN Routine 08/20/2016 2:26 PM Screening for Resul ts for this LAYER SCREEN CDT malignant neoplasm procedure are in of cervix the results section. documented in this encounter Results Pap imaged thin layer screen reflex to HPV if ASCUS - recommend age 25 - 29 (08/20/2016 2:26 PM CDT) Component Value Ref Test Analysis Performed At [facility] Range Method Time Signature PAP NIL COPATH Copath Report COPATH Patient Name: SHRUTI KIRKLAND MR#: [id number] Specimen #: [id number] Collected: 08/20/2016 Received: 08/21/2016 Reported: 08/22/2016 14:28 Ordering Phy(s): NADIYA BAUTISTA For improved result formatting, select 'View Enhanced Report Format' under Linked Documents section. SPECIMEN/STAIN PROCESS: Pap imaged thin layer prep screening (Surepath, FocalPoint w ith guided screening) ? Pap-Cyto x 1, Pap with reflex to HPV if ASCUS x 1 SOURCE: Cervical, endocervical ---- Pap imaged thin layer prep screening (Surepath, FocalPoint with guided screening) SPECIMEN ADEQUACY: Satisfactory for evaluation. -Transformation zone component present. CYTOLOGIC INTERPRETATION: Negative for Intraepithelial Lesion or Malignancy Electronically signed out by: JOHNNIE Harden ( ASCP) [facility] CLINICAL HISTORY: LMP: 10/12/15 Post-, Previous normal pap Date of Last Pap: 02/15/14, Papanicolaou Test Limitations: ??Cervical cytology is a scre ening test with limited sensitivity; regular screening is critical for cancer prevention; Pap tests are primarily effective for the diagnosis/prevention of squamous cell carcinoma, not adenoca rcinomas or other cancers. TESTING LAB LOCATION: [address] ??[id number] COLLECTION SITE: Client: ??[facility] Location: RIOB (R) Specimen (Source) Anatomical Collection Method Collection Time Re ceived Time Location / / Volume Laterality Cytologic 08/20/2016 2:26 08/21/2016 material PM CDT 10:33 AM CDT (specimen) Nadiya Bautista DO LAB - OPTIME CLINICAL SPECIM EN Performing Organization Address City/State/ZIP Code Phon e Number COPATH documented in this encounter Visit Diagnoses Diagnosis Routine follow-up - Primary Encounter for initial prescription of co ntraceptive pills General counseling for prescription of o ral contraceptives Screening for malignant neoplasm of cerv ix Screening for malignant neoplasm of the cervix documented in this encounter Additional Health Concerns Assessment Noted Time PHQ-9 Depression Total Score: 0 08/21/2016 7:15 AM CDT documented as of this encounter Care Teams Auto Glass Technician Relationship Specialty Start Date End Date Sarah Montgomery PA-C PCP - General Family Practice 10/21/11 [address] [place] [address] documented as of this encounter
--- OUTSIDE RECORDS SUMMARY | 2022-01-03 08:23 | XMS_ITS | Encounter Summary ---
:1985 Author Organization [place] Address [address] [facility] [place] [address] Care Team Providers Name Role Phone Sarah Montgomery PA-C Primary Care Provider [phone] Reason for Visit Reason Comments Home Care/Hospice Encounter Details Date Type Department Care Team Description 07/13/2016 Documentation Only [facility] and [facility] as, Home Care/Hospice Hospice [address] [address] [facility] [address] [place], [place] [id number] Social History Tobacco Use Types Packs/Day Years Used Date Former Smoker Smokeless Tobacco: Never Used Alcohol Use Standard Drinks/Week Comments No 0 (1 standard drink = 0.6 oz pure alcoho l) Sex Assigned at Date Recorded Not on file documented as of this encounter Progress Notes Rhonda Mercedes - 07/13/2016 10:10 AM CST [facility] now requests orders and shares plan of care/discharge summaries for some patients through [facility]. Thank you for your assistance in improving collaboration for our patients. [facility] has made 2 attempts to contact patient by phone and text message over the last 4 days to offer a home visit. We have not had any response from patient. Final message was left advising patient to follow up with Primary Care Providers for mom and baby. Thank you for the referral. Sincerely, [facility] [phone] LOPMENT EDUCATOR documented in this encounter Plan of Treatment Not on filedocumented as of this encounter Visit Diagnoses Not on filedocumented in this encounter Additional Health Concerns Assessment Noted Time PHQ-9 Depression Total Score: 0 02/19/2016 7:19 AM CDT documented as of this encounter Care Teams Room Cooler Installer Relationship Specialty Start Date End Date Sarah Montgomery PA-C PCP - General Family Practice 10/21/11 [address] [place] [address] documented as of this encounter
--- OUTSIDE RECORDS SUMMARY | 2022-01-03 08:23 | XMS_ITS | Encounter Summary ---
:1985 Author Organization [place] Address [address] [place] [address] Care Team Providers Name Role Phone Sarah Montgomery PA-C Primary Care Provider [phone] Reason for Visit Auth/Cert Specialty Diagnoses / Procedures Referred By Contact Refer red To Contact hand mounter Diagnoses Indication for care in labor or delivery state Rh [address] [facility] [place], [place] [address] Phone: Fax: Referral ID Status Reason Start Date Expiration Date Visits Requ ested Visits Authorized [id number] 1 1 Encounter Details Date Type Department Care Team Description 07/07/2016 Anesthesia Event [facility] Morris Max MD [employer] [facility] [address] [facility] [place] [address] [facility] [id number] [address] [place], [place] [address] (Wo rk) Anesthesia Record Procedure Summary Procedure Name Responsible Anesthesia Start Time Anesthesia Stop Time Anesthesiologist LABOR ANALGESIA Morris Max MD 07/07/16 1723 07/07/16 1741 Events Date Time Event Comment 07/07/2016 1723 An Start 1741 An Stop Electronically s igned by Morris Max on July 07, 2016 5:52 PM No medications on file. Agents No agents on file. Blood No blood administrations on file. Lines, Drains, and Airways Type Details Placement Removal Intrathecal/Epidural 07/07/16; 1741; 07/07/16 1741 by Catheter Epidural Morris Max MD Peripheral IV 07/07/16; 0150; 20 G; 07/07/16 0150 by 07/08/16 0950 by Right; Hand; Alcohol; Juanita Burgos RN Hehli, Caroline, RN Injectable; Tolerated well documented in this encounter Social History Tobacco Use Types Packs/Day Years Used Date Former Smoker Smokeless Tobacco: Never Used Alcohol Use Standard Drinks/Week Comments No 0 (1 standard drink = 0.6 oz pure alcoho l) Sex Assigned at Date Recorded Not on file documented as of this encounter OR Notes Anesthesia Postprocedure Evaluation - Vishal Daigle MD - 07/08/2016 8:26 AM CST Patient: Rhonda Tamayo * No procedures listed * Diagnosis:* No pre-op diagnosis entered * Diagnosis Additional Information: Labor pain Anesthesia Type: No value filed. Note: Anesthesia Post Evaluation Comments: S/P epidural for labor. I or my partner was immediately available for management of this patient during epidural analgesia infusion. VSS. Doing well. Block resolved. Neuro at baseline. Denies positional headache. Minimal side effectseasily managed w/ PRN meds. No apparent anesthetic complications. No follow-up required. Vishal Daigle MD Last vitals: Vitals: 07/08/16 0125 07/08/16 0148 07/08/16 0605 BP: 108/71 113/71 111/69 Pulse: 74 72 72 Resp: 16 16 16 Temp: 99.1 ??F (37.3 ??C) 98.9 ??F (37.2 ??C) 98.4 ??F (36.9 ??C) Electronically Signed By: Vishal Daigle MD July 08, 2016 8:26 AM COMMUNICATIONS OFFICER Anesthesia Preprocedure Evaluation - Morris Max MD - 07/07/2016 5:58 PM TELECOMMUNICATIONS OFFICER PAC NOTE: ANESTHESIA PRE EVALUATION: Anesthesia Evaluation history and physical reviewed . ROS/MED HX ENT/Pulmonary: - neg pulmonary ROS Neurologic: - neg neurologic ROS Cardiovascular: - neg cardiovascular ROS METS/Exercise Tolerance: Hematologic: Musculoskeletal: GI/Hepatic: - neg GI/hepatic ROS Renal/Genitourinary: Endo: Psychiatric: Infectious Disease: Malignancy: Other: Physical Exam Normal systems: cardiovascular, pulmonary and dental Airway Mallampati: II TM distance: > 3 FB Neck ROM: full Mouth opening: > 3 cm Dental Cardiovascular Pulmonary neg OB ROS Anesthesia Plan History & Physical Review ASA Status: . OB Epidural Asa: 2 Postoperative Care Consents Anesthetic plan, risks, benefits and alternatives discussed with: Patient.. . COMMUNICATIONS OFFICER Anesthesia Procedure Notes - Morris Max MD - 07/07/2016 5:52 PM TELECOMMUNICATIONS OFFICER Associated Order(s): ANE EPIDURAL BLOCK Peripheral nerve/Neuraxial procedure note : Assessment/Narrative . . . Comments: Pre-Procedure Performed by Morris Max MD Location: OB. PreAnesthestic Checklist: patient identified, IV checked, risks and benefits discussed, informed consent obtained, monitors and equipment checked, pre-op evaluation and at physician/surgeon's request. Timeout Correct Patient: Yes Correct Procedure: Epidural catheter placement Correct Site: Yes Correct Position: Yes Procedure Documentation Procedure: Epidural catheter block for Labor Patient currently in labor and she and OBMD request a labor epidural to control her labor pains. Patient was interviewed and examined. Procedure and risks including but not limited to bleeding, infection, nerve injury, paralysis, PDPH, and inadequate block requiring intervention discussed with patient. Questions answered. This epidural is to be placed in anticipation of vaginal delivery. She consentsto the epidural procedure. Time-out was performed. I or my partners remain immediately available formanagement of any issues or complications and will monitor at appropriate intervals. Procedure: Patient sitting. Betadine prep x 3. Sterile drape applied. Lidocaine 1% local infiltration at L 3-4. 17 G. Tuohy needle at L3-4 by loss of resistance into epidural space. No CSF, paresthesia or blood. 1.5 % Lidocaine with 1:200,000 Epinephrine 5cc test dose. Then 0.25% bupivicaine 10 cc with NS 5 cc. Epidural catheter inserted w/o resistance to 5 cm in epidural space. Aspiration negative for blood and CSF. Negative for neuro change, paresthesia or symptoms of intravascular injection or intrathecal injection. Infusion orders written and infusion of 0.125% bupivicaine 15cc per hour started. Morris Max MD COMMUNICATIONS OFFICER documented in this encounter Miscellaneous Notes Addendum Note - Vishal Daigle MD - 07/08/2016 8:26 AM CST Addendum created 07/08/16825 by Vishal Daigle MD Sign clinical note COMMUNICATIONS OFFICER documented in this encounter Plan of Treatment Not on filedocumented as of this encounter Procedures Procedure Name Priority Date/Time Associated Diagnosis Comme nts ANE EPIDURAL BLOCK Routine 07/07/2016 5:52 PM TELECOMMUNICATIONS OFFICER Procedure Note - Kasey Max MD - 07/07/2016 5:52 PM CSTThis note is in progress. Formatting of this note migh t be different from the original. Peripheral nerve/Neuraxial p rocedure note : Assessment/Narrative . . . Comments: Pre-Procedur e Performed by Morris Max MD Location: OB. PreAnesthestic Checklist: pa tient identified, IV checked, risks and benefits discussed, informed consent obtained, monitors and equipment checked, pre-op evaluation and at physician/surgeon's request. Timeout Correct Patient: Yes Correct Procedure: Epidural catheter placement Correct Site: Yes Correct Position: Yes Procedure Documentation Procedure: Epidural catheter block for Labor Patient currently in labor a nd she and OBMD request a labor epidural to control her labor pains. Patient was interviewed and examined. Procedure and risks including but not limited to bleeding, infection, nerve injury, paralysis, PDPH, and inadequ ate block requiring intervention discussed with patient. Questions answered. This epidural is to be placed in anticipation of vaginal delivery. She consents to the epidural procedure. Time-out was performed. I o r my partners remain immediately available for management of any issues or complications and will monitor at appropriate intervals. Procedure: Patient sitting. Betadine prep x 3. Sterile drape applied. Lidocaine 1% local infiltrat ion at L 3-4. 17 G. Tuohy needle at L3-4 by loss of resistance into epidural space. No CSF, paresthesia or blood. 1.5 % Lidocaine with 1:200,000 Epinephrine 5cc test dose. Then 0.25% bupivicaine 10 cc with NS 5 cc. Epidural catheter inserted w/o resistance to 5 cm in epidural space. Aspiration negative for blood and CSF. Negative for neuro change, paresthesia or symptoms of intravascular injection or intrathecal injection. Infusion orders written and infusion of 0.125% bupivicaine 15cc per hour started. Morris Max MD documented in this encounter Visit Diagnoses Not on filedocumented in this encounter Additional Health Concerns Assessment Noted Time PHQ-9 Depression Total Score: 0 02/19/2016 7:19 AM CDT documented as of this encounter Care Teams Pulp And Paper Tester Relationship Specialty Start Date End Date Sarah Montgomery PA-C PCP - General Family Practice 10/21/11 [address] [place] [address] documented as of this encounter
--- OUTSIDE RECORDS SUMMARY | 2022-01-03 08:23 | XMS_ITS | Encounter Summary ---
:1985 Author Organization [place] Address [address] [place] [address] Care Team Providers Name Role Phone Sarah Montgomery PA-C Primary Care Provider Sarah Montgomery PA-C Unavailable [phone] Sarah Montgomery PA-C Unavailable [phone] Reason for Referral CV Testing - Closed Specialty Diagnoses / Procedures Referred By Contact Refer red To Contact Cardiology Diagnoses CARDIOVASCULAR SCREENING; LDL GOAL LESS THAN 160 Palpitations Sonny Villafuerte MD [facility] Cardiac Test [facility] Procedures Cardiac Event Monitor - Peds/Adult [address] [address] [place] [address] [address] [place] [address] Phone: Fax: Referral ID Status Reason Start Date Expiration Date Visits Requ ested Visits Authorized [id number] Closed 10/19/2017 10/19/2018 1 1 V Testing - Closed Specialty Diagnoses / Procedures Referred By Contact Refer red To Contact Cardiology Diagnoses CARDIOVASCULAR SCREENING; LDL GOAL LESS THAN 160 Palpitations Sonny Villafuerte MD [facility] Procedures Echocardiogram [address] [address] [place] [address] [address] [place] [address] Phone: Fax: Referral ID Status Reason Start Date Expiration Date Visits Requ ested Visits Authorized [id number] Closed 10/19/2017 10/19/2018 1 1 Reason for Visit Reason Comments Palpitations family hx of CAD CV Cardio consult - Closed Specialty Diagnoses / Procedures Referred By Contact Refer red To Contact Diagnoses Racing heart beat Palpitations Family history of ischemic heart disease Sarah Montgomery [facility] [address] [facility] [address] [place] [address] [place] [address] Phone: [phone] Fax: Referral ID Status Reason Start Date Expiration Date Visits Requ ested Visits Authorized [id number] Closed 10/08/2017 10/08/2018 1 1 Encounter Details Date Type Department Care Team Description 10/12/2017 Office Visit [facility] Sarah Salas PA-C [address] [place] [address] CARDIOVASCULAR SCREENING; LDL GOAL LESS THAN 160 (Primary Dx); [facility] Piper Villafuerte, Sonny Piper MD [address] [facility] [address] [place], [place] [address] Palpitations [address] [facility] [address] [place] [address] Social History Tobacco Use Types Packs/Day [...] Sign Reading Time Taken Comments Blood Pressure 100/66 10/12/2017 12:11 PM CDT Pulse 98 10/12/2017 12:11 PM CDT Temperature - - Respiratory Rate - - Oxygen Saturation - - Inhaled Oxygen Concentration - - Weight 71.4 kg (157 lb 6.4 oz) 10/12/2017 12:11 PM CDT Height 167.6 cm (5' 6) 10/12/2017 12:11 PM CDT Body Mass Index 25.41 10/12/2017 12:11 PM CDT documented in this encounter Progress Notes Ip, Sonny Piper MD - 10/12/2017 1:01 PM CDT Service Date: 10/12/2017 HISTORY OF PRESENT ILLNESS: It is a pleasure for me to see Shruti today for evaluation of palpitations. She is a very pleasant 31-year-old lady who visited the emergency room recently due to a sudden onset of palpitations at night. They woke her up from sleep. She felt a rapid heartbeat. She also tells me she felt unwell, but had no symptoms such as chest pains or shortness of breath. Unfortunately, she went to a hospital which is outside of our electronic medical record system and I could not access the notes there. She told me that they gave her something to calm her down and she was discharged. When she saw her primary physician, she was advised to follow up in the Cardiology Clinic. The medicat ions she was given from the emergency room was some Ativan, though she has not used it. This young lady's father in his 40s from what sounds like valvular heart disease and he had atrial fibrillation as well. She is concerned about having that rhythm. She does not smoke or abuse drugs. She tells me that once in a while she would go out and drink alcohol with her friends and after some of these episodes she may have occasional palpitations and would feel unwell. There is no history of thyroid disease. She denies any significant stresses at this time. Her cardiac examination is completely normal as is her EKG. ASSESSMENT AND PLAN: I reassured this young lady that she does not have atrial fibrillation and she does not have much by way of the substrates which make her more prone to having atrial fibrillation. What she describes does sound like stress related tachycardia. I will obtain a 30-day event monitor and I will also check an echocardiogram to ensure she has a structurally normal heart. We will keep her abreast of the investigation results and arrange followup as necessary. I think the likelihood of her having significant heart disease would be quite low. SONNY VILLAFUERTE MD, [facility] MT: [place] Name: SHRUTI KIRKLAND MRN: [id number] Account: [id number] : 1985 Service Date: 10/12/2017 Document: [id number] Sonny Villafuerte MD - 10/12/2017 12:15 PM CDT HPI and Plan: See dictation Orders Placed This Encounter Procedures ??? EKG 12-lead complete w/read - Clinics (performed today) ??? Cardiac Event Monitor - Peds/Adult ??? Echocardiogram No orders of the defined types were placed in this encounter. Encounter Diagnoses Name Primary? CARDIOVASCULAR SCREENING; LDL GOAL LESS THAN 160 Yes ??? Palpitations CURRENT MEDICATIONS: Current Outpatient Prescriptions Medication Sig Dispense Refill ??? fluticasone (FLONASE) 50 MCG/ACT spray Hope 1-2 sprays into both nostrils daily 16 [...] Age of Onset ??? HEART DISEASE Father [place] at age 42 ??? Depression Father ??? CANCER Maternal Grandmother cervical and uterine ??? Breast Cancer Maternal Grandmother dx at age 62 ??? DIABETES Maternal Grandfather ??? DIABETES Paternal Grandfather ??? Cancer - colorectal No [...] Single, lives with boyfriend. 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 Review of Systems: Skin: Positive for bruising Eyes: Negative ENT: Negative Respiratory: Positive for shortness of breath Cardiovascular: Negative for;chest pain;edema Positive for;fatigue;palpitations;lightheadedness;dizziness Gastroenterology: Positive for nausea Genitourinary: Negative Musculoskeletal: Positive for joint pain;back pain Neurologic: Negative Psychiatric: Positive for anxiety Heme/Lymph/Imm: Positive for easy bruising;allergies Endocrine: Negative Physical Exam: Vitals: BP 100/66 Pulse 98 Ht 1.676 m (5' 6) Wt 71.4 kg (157 lb 6.4 oz) BMI 25.41 kg/m2 Constitutional: cooperative, alert and oriented, well developed, well nourished, in no acute distress Skin: warm and dry to the touch, no apparent skin lesions or masses noted Head: normocephalic, no masses or lesions Eyes: pupils equal and round, conjunctivae and lids unremarkable, sclera white, no xanthalasma, EOMSintact, no nystagmus Lymph:No Cervical lymphadenopathy present ENT: no pallor or cyanosis, dentition good Neck: carotid pulses are full and equal bilaterally, JVP normal, no carotid bruit Respiratory: normal breath sounds, clear to auscultation, normal A-P diameter, normal symmetry, normal respiratory excursion, no use of accessory muscles Cardiac: regular rhythm, normal S1/S2, no S3 or S4, apical impulse not displaced, no murmurs, gallops or rubs GI: abdomen soft, non-tender, BS normoactive, no mass, no HSM, no bruits Extremities and Muscular Skeletal: no deformities, clubbing, cyanosis, erythema observed Neurological: no gross motor deficits Psych: Alert and Oriented x 3 Recent Lab Results: LIPID RESULTS: Lab Results [...] RESULTS: No results found for: INR CC Sarah Montgomery PA-C [address] [place] [address] documented in this encounter Plan of Treatment Not on filedocumented as of this encounter Procedures Procedure Name Priority Date/Time Associated Diagnosis Comme nts EKG 12-LEAD COMPLETE Routine 10/12/2017 Palpitations Results for this W/READ - CLINICS procedure a re in the results section . documented in this encounter Results Cardiac Event Monitor - Peds/Adult (12/10/2017) Narrative [facility] - 12/10/2017 [facility] [address] [facility] [address] [facility] [address] 11/11/2017 Patient: ??Shruti Kirkland Chart: [id number] : ??1985 Age: ??32 year old Sex: ??female Procedure: ??Event Monitor Placed: Pleas e see scanned document for result once interpretation is completed. Instrumentation Chemist performing hook-up: ??Stephan Lizama Sonny Villafuerte MD CV CARDIAC SERVICES ORDERABL ES Performing Organization Address City/State/ZIP Code Phon e Number [facility] Echocardiogram (11/11/2017 8:00 AM CDT) Anatomical Region Laterality Modality Echocardiography Specimen (Source) Anatomical Collection Method Collection Time Re ceived Time Location / / Volume Laterality 11/11/2017 7:48 AM CDT Narrative 11/11/2017 10:37 AM CDT [id number]^GENESIS^SONNY^LUCRECIA PIPER [facility] Echocardiography Laboratory [address] [place] [address] Name: SHRUTI KIRKLAND : 1985 Study Date: 11/11/2017 07:48 AM Age: 32 yrs Gender: Female Patient Location: [facility] Reason For Study: Palpitations Ordering Physician: SONNY [...] note might be different from the original. [id number]^GENESIS^SONNY^LUCRECIA PIPER [facility] Echocardiography Laboratory [address] [place] [address] Name: SHRUTI KIRKLAND : 1985 Study Date: 11/11/2017 07:48 AM Age: 32 yrs Gender: Female Patient Location: [facility] Reason For Study: Palpitations Ordering Physician: SONNY [...] AM Sonny Villafuerte MD CV ECHO ORDERABLES EKG 12-lead complete w/read - Clinics (performed today) (10/12/2017) Narrative This result has an attachment that is no t available. Sonny Villafuerte MD ECG ORDERABLES documented in this encounter Visit Diagnoses Diagnosis CARDIOVASCULAR SCREENING; LDL GOAL LESS THAN 160 - Primary Palpitations CARDIOVASCULAR SCREENING; LDL GOAL LESS THAN 160 Palpitations CARDIOVASCULAR SCREENING; LDL GOAL LESS THAN 160 Palpitations documented in this encounter Additional Health Concerns Assessment Noted Time PHQ-9 Depression Total Score: 1 09/22/2017 7:43 AM CDT documented as of this encounter Care Teams Casting Machine Adjuster Relationship Specialty Start Date End Date Sarah Montgomery, PCP - General Family Practice 10/21/11 [facility] [address] [place] [address] Sarah Montgomery, PCP - Assigned PCP 07/27/18 PA-C [address] [place] [address] Sarah Montgomery, Assigned PCP 03/15/17 10/17/20 [place] [address] [place] [address] documented as of this encounter
--- OUTSIDE RECORDS SUMMARY | 2022-01-03 08:23 | XMS_ITS | Encounter Summary ---
:1985 Author Organization [place] Address [address] [place] [address]. [place] [address] Care Team Providers Name Role Phone Sarah Montgomery PA-C Primary Care Provider [phone] Reason for Visit Reason Comments Care Encounter Details Date Type Department Care Team Description 06/16/2016 Office [facility] [address] first in [place], [place] S third trimester [id number] LAMAR, (Primary Dx) [phone] [place] [address] Social History Tobacco Use Types Packs/Day [...] Sign Reading Time Taken Comments Blood Pressure 120/80 06/16/2016 11:29 AM SCREENING TECHNICIAN Pulse 77 06/16/2016 11:29 AM SCREENING TECHNICIAN Temperature 36.8 ??C (98.2 ??F) 06/16/2016 11:29 AM SCREENING TECHNICIAN Respiratory Rate - - Oxygen Saturation 99% 06/16/2016 11:29 AM SCREENING TECHNICIAN Inhaled Oxygen Concentration - - Weight 80.4 kg (177 lb 3.2 oz) 06/16/2016 11:29 AM SCREENING TECHNICIAN Height 167.6 cm (5' 6) 06/16/2016 11:29 AM SCREENING TECHNICIAN Body Mass Index 28.6 06/16/2016 11:29 AM SCREENING TECHNICIAN documented in this encounter Patient Instructions Patient InstructionsNadiya Bautista, - 06/16/2016 11:36 AM CST Images from the original note were not included. Return weekly Dr. Nadiya Bautista DO Obstetrics and Gynecology [facility] [place] [facility] [place] Plan Worksheet NAME: ATTENDANTS I'd like the following people to be present during labor and/or : Partner: Friend/s: Relative/s: Expediter: Children: AMENITIES I'd like to: bring music dim the lights wear my own clothes during labor and delivery take pictures and/or video during labor and delivery HOSPITAL ADMISSION & PROCEDURES I'd like the option of returning home if I'm not in active labor. Once I'm admitted, I'd like: my partner to be allowed to stay with me at all times only my practitioner, nurse, and guests to be present (i.e., no residents, medical students, or other hospital personnel) to wear my contact lenses, as long as I don't need a to eat if I wish to to try to stay hydrated by drinking clear fluids instead of having an IV to have a heparin or saline lock to walk and move around as I choose OTHER INTERVENTIONS As long as the baby and I are doing fine, I'd like to: have intermittent rather than continuous electronic monitoring be allowed to progress free of stringent time limits and have my labor augmented only if necessary LABOR PROPS If available, I'd like to try a: birthing stool birthing chair squatting bar birthing pool/tub I'd like to bring the following equipment with me: birthing stool beanbag chair birthing pool/tub other: PAIN RELIEF I'd like to try the following pain-management techniques: acupressure bath/shower breathing techniques/distraction hot/cold therapy self-hypnosis massage medication other: Please don't offer me pain medication. I'll request it if I need it. If I decide I want medicinal pain relief, I'd prefer: regional analgesia (an epidural and/or spinal block) systemic medication PUSHING When it's time to push, I'd like to: do so instinctively be coached on when to push and for how long be allowed to progress free of stringent time limits as long as my baby and I are doing fine I'd like to try the following positions for pushing (and ): semi-reclining side-lying position squatting hands and knees whatever feels right at the time [facility] Plan worksheet - page 3 VAGINAL During delivery, I'd like: to view the using a mirror to touch my baby's head as it crowns the room to be as quiet as possible to give without an episiotomy my partner to help catch our baby After , I'd like: to hold my baby right away, putting off any procedures that aren't urgent to breastfeed as soon as possible not to get oxytocin (Pitocin) after I deliver the placenta unless it's necessary to wait until the umbilical cord stops pulsating before it's clamped and cut my partner to cut the umbilical cord If I have a , I'd like: my partner present at all times during the operation the screen lowered a bit so I can see my baby being delivered the baby to be given to my partner as soon as he's dried, if appropriate to breastfeed my baby in the recovery room CORD BLOOD BANKING I'm planning to: donate cord blood to a public bank bank cord blood privately neither After delivery, I'd like: all procedures to take place in my presence my partner to stay with the baby at all times if I can't be there to stay in a private room to have a cot provided for my partner I'd like: 24-hour rooming-in with my baby my baby to room-in with me only when I'm awake my baby brought to me for feedings only to make my decision later depending on how I'm feeling my other children brought in to see me and meet the new baby as soon as possible after the . [facility] Plan worksheet - page 4 FEEDING ISSUES I plan to: breastfeed exclusively combine and formula-feeding formula-feed exclusively Do not offer my baby: formula sugar water a pacifier CIRCUMCISION If my baby's a boy: I want him to be circumcised at the hospital I'll have him circumcised later I don't want him circumcised DISCHARGE I'd like to: be discharged from the hospital with my baby as soon as possible stay at the hospital as long as possible wait and see how I feel before deciding about the timing of hospital discharge ENING TECHNICIAN documented in this encounter Progress Notes Kiarra Ignacio RN - 06/16/2016 9:55 AM CST CC: Here for routine visit @ 35w3d HPI: Patient is doing well, no questions, notes swollen ankles. Confirms movement, thinks someminor contractions. LMP 10/12/2015 This document serves as a record of the services and decisions personally performed and made by Nadiya Bautista DO. It was created on her behalf by Eli Ignacio, a trained pediatric medical assistant. The creation of this document is based the provider's statements to the pediatric medical assistant. Eli Ignacio June 16, 2016 11:33 AM See OB flowsheet No vaginal bleeding, no LOF, no contractions ASSESSMENT/PLAN: Rhonda Tamayo is a 30 year old year old @ 35w3d wks EGA with @edc@ who presents to the clinic for an ob visit. 1) Return to clinic in 1 week. 2) Complete GBS test at next visit. Dr. Nadiya Bautista DO REFRIGERATOR CRATER [facility] ENING TECHNICIAN documented in this encounter Nursing Notes Eli Saucedo - 06/16/2016 11:30 AM CST Chief Complaint Patient presents with ??? Care Initial BP 120/80 mmHg Pulse 77 Temp(Src) 98.2 ??F (36.8 ??C) (Oral) Ht 5' 6 (1.676 m) Wt 177 lb 3.2 oz (80.377 kg) BMI 28.61 kg/m2 SpO2 99% LMP 10/12/2015 Estimated body mass index is 28.61 kg/(m^2) as calculated from the following: Height as of this encounter: 5' 6 (1.676 m). Weight as of this encounter: 177 lb 3.2 oz (80.377 kg). BP completed using cuff size: regular right arm ALEXI Fleming ENING TECHNICIAN documented in this encounter Plan of Treatment Not on filedocumented as of this encounter Visit Diagnoses Diagnosis Encounter for supervision of normal firs t in third trimester - Primary Supervision of normal first documented in this encounter Additional Health Concerns Assessment Noted Time PHQ-9 Depression Total Score: 0 02/19/2016 7:19 AM CDT documented as of this encounter Care Teams Process Automation Engineer Relationship Specialty Start Date End Date Sarah Montgomery PA-C PCP - General Family Practice 10/21/11 [address] [place] [address] documented as of this encounter
--- OUTSIDE RECORDS SUMMARY | 2022-01-03 08:23 | XMS_ITS | Encounter Summary ---
:1985 Author Organization [place] Address [facility] [place] [address] Care Team Providers Name Role Phone Sarah Montgomery PA-C Primary Care Provider [phone] Reason for Visit Reason Comments Urgent Care Sinus Problem Sore throat for x2 weeks, R side facial pain and R ear, Myalgias, Sinus pressure, nasal congestion Encounter Details Date Type Department Care Team Description 12/21/2016 Office Visit [facility]elita, Karley Throat p ain (Primary Dx); Urgent [facility] [place] Anaya MD Acute sinusitis with symptoms > 10 days; [address] Acute seasonal allergic [place] to [place] [id number] [phone] Social History Tobacco Use Types Packs/Day Years Used Date Former Smoker Smokeless Tobacco: Never Used Alcohol Use Standard Drinks/Week Comments No 0 (1 standard drink = 0.6 oz pure alcoho l) Sex Assigned at Date Recorded Not on file documented as of this encounter Last Filed Vital Signs Vital Sign Reading Time Taken Comments Blood Pressure 110/67 12/21/2016 3:48 PM CDT Pulse 65 12/21/2016 3:48 PM CDT Temperature 36.9 ??C (98.4 ??F) 12/21/2016 3:48 PM CDT Respiratory Rate - - Oxygen Saturation 96% 12/21/2016 3:48 PM CDT Inhaled Oxygen Concentration - - Weight - - Height - - Body Mass Index - - documented in this encounter Patient Instructions Patient InstructionsKragh, Karley Jaclyn, MD - 12/21/2016 4:11 PM CDT Images from the original note were not included. Understanding Your Sinuses Your sinuses are air-filled spaces between the bones in your head. They have small openings that connect to the nasal cavity. The sinuses make mucus that drains into the nose. This helps keep the nose moist and free of dust and germs. Parts of the nasal cavity ?? The septum is the wall of cartilage and bone in the center of the nasal cavity. ?? The middle meatus is the intersection between the sinuses. ?? Turbinates are ridges on the sides of the nasal cavity. Cilia keep sinuses clear Air circulates freely though healthy sinuses. Tiny, hairlike structures called cilia line the sinuses. Cilia move the thin, watery mucus through the sinuses and into the nose. Sinuses are healthy when they drain freely. Sinus drainage can be blocked if the sinus lining is swollen or if mucus is too thick. Cilia that are damaged or don???t work correctly can also lead to problems with drainage. Date Last Reviewed: 02/23/2016 ?? [id number] [employer] [place] [address]. All rights reserved. This information is not intended as a substitute for professional medical care. Always follow your healthcare professional's instructions. Sinusitis (No Antibiotics) The sinuses are air-filled spaces within the bones of the face. They connect to the inside of the nose.??Sinusitis??is an inflammation of the tissue lining the sinus cavity. Sinus inflammation can occur during a cold.??It can also be due to allergies to pollens and other particles in the air.??It can cause symptoms such as sinus congestion,??headache, sore throat, facial swelling??and fullness. It may also cause a low-grade fever.??No infection is present, and no antibiotic treatment is needed. Home care ?? Drink plenty of water, hot tea, and other liquids. This may help thin mucus. It also may promote sinus drainage. ?? Heat may help soothe painful areas of the face. Use a towel soaked in hot water. Or, device engineer theshower and direct the hot spray onto your face. Using a vaporizer along with a menthol rub at night may also help.? An??expectorant??containing guaifenesin may help thin the mucus and promote drainage from the sinuses. ?? Hnme-jle-tkuzbwl??decongestants??may be used unless a similar medicine was prescribed. Nasal sprays work the fastest. Use one that contains phenylephrine or oxymetazoline. First blow the nose gently. Then use the spray. Do not use these medicines more often than directed on the label or symptoms may get worse. You may also use tablets containing pseudoephedrine. Avoid products that combine ingredients, because side effects may be increased. Read labels. You can also ask the pharmacist for help. (NOTE:??Persons with high blood pressure should not use decongestants. They can raise blood pressure.) ?? Upnx-mmb-brjgutd??antihistamines??may help if allergies contributed to your sinusitis. ? Use acetaminophen or ibuprofen to control pain, unless another pain medicine was prescribed. (If you have chronic liver or kidney disease or ever had a stomach ulcer, talk with your doctor before using these medicines. Aspirin should never be used in anyone under 18 years of age who is ill with a fever. It may cause severe liver damage.) ?? Use nasal rinses or irrigation as instructed by your health care provider. ?? Don't smoke. This can worsen symptoms. Follow-up care Follow up with your healthcare provider or our staff if you are not improving within the next week. When to seek medical advice Call your healthcare provider if any of these occur: ?? Green or yellow discharge from the nose or into the throat ?? Facial pain or headache becoming more severe ?? Stiff neck ?? Unusual drowsiness or confusion ?? Swelling of the forehead or eyelids ?? Vision problems, including blurred or double vision ?? Fever of??100.4??F (38??C)??or higher, or as directed by your healthcare provider ?? Seizure ?? Breathing problems ?? Symptoms not resolving within 10 days Date Last Reviewed: 09/04/2014 ?? [id number] [employer] [address] [place] [address], [place] [address]. All rights reserved. This information is not intended as a substitute for professional medical care. Always follow your healthcare professional's instructions. documented in this encounter Progress Notes Karley Britton MD - 12/21/2016 3:35 PM CDT SUBJECTIVE: Chief Complaint Patient presents with ??? Urgent Care ??? Sinus Problem Sore throat for x2 weeks, R side facial pain and R ear, Myalgias, Sinus pressure, nasal congestion Rhonda Tamayo is a 31 year old female here with concerns about sinus infection. She states onsetof symptoms were 2 week(s) ago. She has had maxillary, frontal pressure. Course of illness is worsening. Severity moderate Current and Associated symptoms: sore throat, facial pain/pressure, headache and itchy eyes and itchy nose Predisposing factors include recent illness and seasonal allergies. Recent treatment has included: None Past Medical History: Diagnosis Date ??? abnormal pap 06/02, 09/2011 '09 HSIL, colp neg, '12:ELZBIETA I ??? Herpes valtrex ALLERGIES: Seasonal allergies Current Outpatient Prescriptions on File Prior to Visit: valACYclovir (VALTREX) 500 MG tablet Take 1 tablet (500 mg) by mouth 2 times daily desogestrel-ethinyl estradiol (APRI) 0.15-30 MG-MCG per tablet Take 1 tablet by mouth daily Vit-Fe Fumarate-FA ( MULTIVITAMIN PLUS IRON) 27-0.8 MG TABS Take 1 tablet by mouth daily Reported on 08/20/2016 No current facility-administered medications on file prior to visit. Social History Substance Use Topics ??? Smoking status: Former Smoker ??? Smokeless tobacco: Never Used ??? Alcohol use No Family History Problem Relation Age of Onset ??? HEART DISEASE Father UT at age 42 ??? Depression Father ??? CANCER Maternal Grandmother cervical and uterine ??? Breast Cancer Maternal Grandmother dx at age 62 ??? DIABETES Maternal Grandfather ??? DIABETES Paternal Grandfather ??? Cancer - colorectal No family hx of ROS: INTEGUMENTARY/SKIN: NEGATIVE for worrisome rashes, moles or lesions EYES: NEGATIVE for vision changes or irritation RESP:NEGATIVE for significant cough or SOB GI: NEGATIVE for nausea, abdominal pain, heartburn, or change in bowel habits OBJECTIVE: BP 110/67 (BP Location: Right arm, Patient Position: Chair, Cuff Size: Adult Regular) Pulse 65 Temp 98.4 ??F (36.9 ??C) (Oral) SpO2 96% Exam:GENERAL APPEARANCE: healthy, alert and no distress EYES: EOMI, PERRL, conjunctiva clear HENT: ear canals and TM's normal. Nose and mouth without ulcers, erythema or lesions HENT: frontal sinus tenderness and maxillary sinus tenderness NECK: supple, nontender, no lymphadenopathy RESP: lungs clear to auscultation - no rales, rhonchi or wheezes CV: regular rates and rhythm, normal S1 S2, no murmur noted NEURO: Normal strength and tone, sensory exam grossly normal, normal speech and mentation SKIN: no suspicious lesions or rashes Results for orders placed or performed in visit on 12/21/16 Rapid strep screen Result Value Ref Range Specimen Description Throat Rapid Strep A Screen NEGATIVE: No Group A streptococcal antigen detected by immunoassay, await culture report. Micro Report Status FINAL 12/21/2016 ASSESSMENT: Throat pain - Rapid strep screen - Beta strep group A culture Acute sinusitis with symptoms > 10 days - fluticasone (FLONASE) 50 MCG/ACT spray; [place] 1-2 sprays into both nostrils daily - amoxicillin (AMOXIL) 875 MG tablet; Take 1 tablet (875 mg) by mouth 2 times daily We discussed the primary importance of home cares to promote drainage and ventilation of the sinusesto decrease symptoms of sinus pressure and to eliminate infectious drainage from the sinuses. I encouraged the use of saline nasal spray as needed to promote cleaning of the nasal passages and to promote drainage of the sinuses. Allergy medications and steroid nasal spray help reduce swelling within the nasal tissue and may help open drainage/ ventilation passages to the sinuses. Expectorants are recommended rather than decongestants to help promote sinus drainage. Antibiotics are discussed as a secondary therapy for sinus infections that are unresponsive to home measures to promote sinus drainage and ventilation. Follow up with primary clinic if not improving Acute seasonal allergic rhinitis due to pollen Will use OTC antihistamine- cetirazine for symptoms of itchy eyes and nose documented in this encounter Nursing Notes Lorena Samuel CMA - 12/21/2016 3:35 PM CDT Images from the original note were not included. Chief Complaint Patient presents with ??? Urgent Care ??? Sinus Problem Sore throat for x2 weeks, R side facial pain and R ear, Myalgias, Sinus pressure, nasal congestion Initial BP 110/67 (BP Location: Right arm, Patient Position: Chair, Cuff Size: Adult Regular) Pulse 65 Temp 98.4 ??F (36.9 ??C) (Oral) SpO2 96% Estimated body mass index is 25.1 kg/(m^2) as calculated from the following: Height as of 07/07/16: 5' 6 (1.676 m). Weight as of 08/20/16: 155 lb 8 oz (70.5 kg). Medication Reconciliation: complete Lorena Samuel CMA (AAMA) documented in this encounter Plan of Treatment Not on filedocumented as of this encounter Procedures Procedure Name Priority Date/Time Associated Diagnosis Comme nts RAPID STREP SCREEN Routine 12/21/2016 3:57 PM Throat pain Res ults for this THROAT SWAB CDT procedure are i n the results section. BETA HEMOLYTIC Routine 12/21/2016 3:57 PM Throat pain Results for this STREP GROUP A CDT procedure are in CULTURE the results section. documented in this encounter Results Beta strep group A culture (12/21/2016 3:57 PM CDT) Component Value Ref Test Analysis Performed At [facility] Method Time Signature Specimen Throat [place] Description [facility] Culture Micro No beta [place] hemolytic [facility] Streptococcus ALMENA Group A isolated Micro Report FINAL 12/22/[address] [facility] Specimen Anatomical Collection Method Collection Time Receive d Time (Source) Location / / Volume Laterality Specimen from 12/21/2016 3:57 PM 12/22/19 17 3:58 throat CDT PM CDT (specimen) Karley Britton MD LAB - MICRO GENERAL ORDERABL ES Performing Organization Address City/State/ZIP Code Phon e Number [facility] [id number] [place] [address] Rapid strep screen (12/21/2016 3:57 PM CDT) Component Value Ref Test Analysis Performed At [facility] gist Range Method Time Signature Specimen Throat [place] Description [facility] Rapid Strep A NEGATIVE: No Group A strepto coccal antigen detected by immunoassay, await [place] Screen culture report. [facility] Micro Report FINAL 12/21/[address] [place] [address] [facility] Specimen Anatomical Collection Method Collection Time Receive d Time (Source) Location / / Volume Laterality Specimen from 12/21/2016 3:57 PM 12/22/19 17 3:58 throat CDT PM CDT (specimen) Karley Britton MD LAB - MICRO GENERAL ORDERABL ES Performing Organization Address City/State/ZIP Code Phon e Number [facility] [id number] [place] [address] documented in this encounter Visit Diagnoses Diagnosis Throat pain - Primary Acute sinusitis with symptoms > 10 days Acute sinusitis, unspecified Acute seasonal allergic rhinitis due to pollen documented in this encounter Additional Health Concerns Assessment Noted Time PHQ-9 Depression Total Score: 0 08/21/2016 7:15 AM CDT documented as of this encounter Care Teams Magnetic Resonance Technologist Relationship Specialty Start Date End Date Sarah Montgomery PA-C PCP - General Family Practice 10/21/11 [address] [place] [address] documented as of this encounter
--- OUTSIDE RECORDS SUMMARY | 2022-01-03 08:23 | XMS_ITS | Encounter Summary ---
:1985 Author Organization [place] Address [facility] [place] [address] Care Team Providers Name Role Phone Sarah Montgomery PA-C Primary Care Provider Reason for Visit Reason Onset Date Comments Forms 07/17/2016 Encounter Details Date Type Department Care Team Description 07/17/2016 Telephone [facility] Nadiya Bautista Forms Clinic [place] [facility] [place] [address] [facility] [address] [place] [address] [place] [address] [phone] Social History Tobacco Use Types Packs/Day Years Used Date Former Smoker Smokeless Tobacco: Never Used Alcohol Use Standard Drinks/Week Comments No 0 (1 standard drink = 0.6 oz pure alcoho l) Sex Assigned at Date Recorded Not on file documented as of this encounter Miscellaneous Notes Telephone Encounter - Mandi Wang - 07/17/2016 4:09 PM CST Form completed and 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 Copy of form sent to [employer]. ARCH ENVIRONMENTAL ENGINEER Telephone Encounter - Mandi Wang - 07/17/2016 2:44 PM CST Form received from: patient Form requesting following info/need: Physician's statement CHEL needed?: No Location of form: [facility] / Dr. Bautista When completed the route for return: Patient Permaculture Contractor ARCH ENVIRONMENTAL ENGINEER documented in this encounter Plan of Treatment Not on filedocumented as of this encounter Visit Diagnoses Not on filedocumented in this encounter Additional Health Concerns Assessment Noted Time PHQ-9 Depression Total Score: 0 02/19/2016 7:19 AM CDT documented as of this encounter Care Teams Traffic Safety Administrator Relationship Specialty Start Date End Date Sarah Montgomery PA-C PCP - General Family Practice 10/21/11 [address] [place] [address] documented as of this encounter
--- OUTSIDE RECORDS SUMMARY | 2022-01-03 08:23 | XMS_ITS | Encounter Summary ---
:1985 Author Organization [place] Address [address] [place] [address] Care Team Providers Name Role Phone Sarah Montgomery PA-C Primary Care Provider [phone] Reason for Visit Reason Onset Date Comments Medication Request 09/16/2016 herpes outbreak Encounter Details Date Type Department Care Team Description 09/16/2016 Telephone [facility] Nadiya Bautista on Request [facility] DO [place] (herpes outbreak) [address] [place] [phone] [id number] Social History Tobacco Use Types Packs/Day Years Used Date Former Smoker Smokeless Tobacco: Never Used Alcohol Use Standard Drinks/Week Comments No 0 (1 standard drink = 0.6 oz pure alcoho l) Sex Assigned at Date Recorded Not on file documented as of this encounter Miscellaneous Notes Telephone Encounter - Janet Tejada RN - 09/16/2016 11:04 AM CDT Pt notified RX sent Janet Tejada RN Telephone Encounter - Nadiya Bautista DO - 09/16/2016 10:40 AM CDT Patient has delivered, which is good I will call in refill plz advise Dr. Nadiya Bautista DO Obstetrics and Gynecology [facility] and [place] Telephone Encounter - Christine Colunga RN - 09/16/2016 8:43 AM CDT Pt calling stating she is having a genital herpes outbreak and wondering what medication she should take. She has some 500mg Valtrex but not sure what dose she should be taking. Please advise and send new rx to pharmacy. Pt is not . Christine Colunga RN, BSN documented in this encounter Plan of Treatment Not on filedocumented as of this encounter Visit Diagnoses Diagnosis HSV (herpes simplex virus) infection - P rimary Herpes simplex without mention of compli cation documented in this encounter Additional Health Concerns Assessment Noted Time PHQ-9 Depression Total Score: 0 08/21/2016 7:15 AM CDT documented as of this encounter Care Teams Jira Developer Relationship Specialty Start Date End Date Sarah Montgomery PA-C PCP - General Family Practice 10/21/11 [address] [place] [address] documented as of this encounter
--- OUTSIDE RECORDS SUMMARY | 2022-01-03 08:23 | XMS_ITS | Encounter Summary ---
:1985 Author Organization [place] Address [address] [place] [address]. [place] [address] Care Team Providers Name Role Phone Sarah Montgomery PA-C Primary Care Provider [phone] Reason for Visit Reason Onset Date Comments Forms 10/02/2016 [facility] Parts Representative Physician's Report Encounter Details Date Type Department Care Team Description 10/02/[address] [facility] Valentina, Forms ([facility] Sarah Aguilar PA-C Family Parts Representative [address] [place] [id number] [place] [place] [address] JERO Physician's Report) [place] [address] [phone] Social History Tobacco Use Types Packs/Day Years Used Date Former Smoker Smokeless Tobacco: Never Used Alcohol Use Standard Drinks/Week Comments No 0 (1 standard drink = 0.6 oz pure alcoho l) Sex Assigned at Date Recorded Not on file documented as of this encounter Miscellaneous Notes Telephone Encounter - Rachell Peña - 10/02/2016 3:05 PM CDT Form copied and called patient for strip picker. Brought to front desk person. Sent to krystle.Rachell Peña Irrigation Supervisor Telephone Encounter - Rachell Peña - 10/02/2016 1:52 PM CDT Form placed on PCP desk for review and completion. Rachell Peña Irrigation Supervisor Telephone Encounter - Yasmeen Mccurdy - 10/02/2016 11:17 AM CDT Reason for Call: Form, our goal is to have forms completed with 72 hours, however, some forms may require a visit or additional information. Type of letter, form or note: [facility] Physician's Report Who is the form from?: [facility] Physician's Report (if other please explain) Where did the form come from: Patient or family brought in What clinic location was the form placed at?: [facility] Where the form was placed: [place] What number is listed as a contact on the form?: No- Patient phone [phone] Additional comments: Patient will strip picker the form as soon as is completed. Call taken on 10/02/2016 at 11:17 AM by Yasmeen Mccurdy documented in this encounter Plan of Treatment Not on filedocumented as of this encounter Visit Diagnoses Not on filedocumented in this encounter Additional Health Concerns Assessment Noted Time PHQ-9 Depression Total Score: 0 08/21/2016 7:15 AM CDT documented as of this encounter Care Teams Stationary Steam Engineer Relationship Specialty Start Date End Date Sarah Montgomery PA-C PCP - General Family Practice 10/21/11 [address] [place] [address] documented as of this encounter
--- OUTSIDE RECORDS SUMMARY | 2022-01-03 08:23 | XMS_ITS | Encounter Summary ---
:1985 Author Organization [place] Address [facility] [place] [address] Care Team Providers Name Role Phone Sarah Montgomery PA-C Primary Care Provider [phone] Reason for Visit Reason Comments Care Encounter Details Date Type Department Care Team Description 06/23/2016 Office [facility] Nadiay Bautista care in Visit Clinic [facility] third trimester [address] [place] [address] (Primary Dx) [facility] [address] [facility] [phone] [place] [address] Social History Tobacco Use Types Packs/Day [...] Sign Reading Time Taken Comments Blood Pressure 90/66 06/23/2016 11:24 AM REACTOR OPERATOR Pulse 81 06/23/2016 11:24 AM REACTOR OPERATOR Temperature 36.7 ??C (98 ??F) 06/23/2016 11:24 AM REACTOR OPERATOR Respiratory Rate - - Oxygen Saturation 98% 06/23/2016 11:24 AM REACTOR OPERATOR Inhaled Oxygen Concentration - - Weight 80.5 kg (177 lb 6.4 oz) 06/23/2016 11:24 AM REACTOR OPERATOR Height 167.6 cm (5' 6) 06/23/2016 11:24 AM REACTOR OPERATOR Body Mass Index 28.63 06/23/2016 11:24 AM REACTOR OPERATOR documented in this encounter Patient Instructions Patient InstructionsNadiya Bautista DO - 06/23/2016 11:34 AM CST Return weekly Remember to do kick counts Perception of at least 10 FMs during 12 hours of normal maternal activity Perception of least 10 FMs over two hours when the mother is at rest and focused on counting Dr. Nadiya Bautista DO Obstetrics and Gynecology [facility] [place] and [place] TOR OPERATOR documented in this encounter Progress Notes Nadiya Bautista DO - 06/23/2016 8:53 AM CST CC: Here for routine visit @ 36w3d Patient's LMP from OB Dating Form was 10/12/2015. HPI: Patient is doing well, no vaginal bleeding, no LOF, no contractions. Confirms movement and baby's hiccups. Notes seeing stars more often, right hand swelling. No other concerns. This document serves as a record of the services and decisions personally performed and made by Nadiya Bautista DO.. It was created on her behalf by Eli Ignacio, a trained medical pathology teacher. The creation of this document is based the provider's statements to the medical pathology teacher. Eli Ignacio June 23, 2016 11:30 AM See OB flowsheet GBS test completed. ASSESSMENT/PLAN: Rhonda Tamayo is a 30 year old year old @ 36w3d wks EGA with Estimated Date of Delivery: Jul 18, 2016 who presents to the clinic for an ob visit. 1) Return to clinic in 1 week. 2) Contact clinic if vision blurs, or other concerns about blood pressure. 3) Reviewed when to contact clinic or go to hospital with onset of labor. The information in this document, created by the medical pathology teacher for me, accurately reflects the services I personally performed and the decisions made by me. I have reviewed and approved this document for accuracy prior to leaving the patient care area. Nadiya Bautista DO June 23, 2016 11:30 AM TOR OPERATOR documented in this encounter Nursing Notes Eli Saucedo - 06/23/2016 11:25 AM CST Chief Complaint Patient presents with ??? Care Initial BP 90/66 mmHg Pulse 81 Temp(Src) 98 ??F (36.7 ??C) (Oral) Ht 5' 6 (1.676 m) Wt 177 lb 6.4 oz (80.468 kg) BMI 28.65 kg/m2 SpO2 98% LMP 10/12/2015 Estimated body mass index is 28.65 kg/(m^2) as calculated from the following: Height as of this encounter: 5' 6 (1.676 m). Weight as of this encounter: 177 lb 6.4 oz (80.468 kg). BP completed using cuff size: regular right arm ALEXI Fleming TOR OPERATOR documented in this encounter Plan of Treatment Not on filedocumented as of this encounter Procedures Procedure Name Priority Date/Time Associated Diagnosis Comme nts GROUP B STREP PCR Routine 06/23/2016 12:15 PM care in Results for this REACTOR OPERATOR third trimester procedure ar e in the results section. documented in this encounter Results Strep, Group B by PCR (06/23/2016 12:15 PM REACTOR OPERATOR) [facility] Method Time Signature Group B Strep Vaginal [place] PCR Spec [facility] [place] Group B Strep Negative NEG [facility] OF PCR No GBS DNA detected, presumed negative f or GBS or number of bacteria may be [place] [facility] below the limit of detection of the assay. [facility] Assay performed on incubate d broth culture of specimen using Blucarat real-time BANK PCR. Specimen Anatomical Collection Method Collection Time Receive d Time (Source) Location / / Volume Laterality 06/23/2016 12:15 06/23/2016 PM REACTOR OPERATOR 12:20 PM REACTOR OPERATOR Nadiya Bautista DO LAB - MICRO GENERAL ORDERABL ES Performing Organization Address City/State/ZIP Code Phon e Number [facility] [address] [place] [address] [facility] [address] [place] [address] documented in this encounter Visit Diagnoses Diagnosis care in third trimester - Prima ry documented in this encounter Additional Health Concerns Assessment Noted Time PHQ-9 Depression Total Score: 0 02/19/2016 7:19 AM CDT documented as of this encounter Care Teams Armorer Technician Relationship Specialty Start Date End Date Sarah Montgomery PA-C PCP - General Family Practice 10/21/11 [address] [place] [address] documented as of this encounter
--- OUTSIDE RECORDS SUMMARY | 2022-01-03 08:23 | XMS_ITS | Encounter Summary ---
:1985 Author Organization [place] Address [address] [place] [address] Care Team Providers Name Role Phone Sarah Montgomery PA-C Primary Care Provider [phone] Sarah Montgomery PA-C Unavailable Sarah Montgomery PA-C Unavailable [phone] Reason for Visit Reason Onset Date Comments Refill Request 09/23/2017 valACYclovir (VALTRE X) 500 MG tablet Encounter Details Date Type Department Care Team Description 09/23/2017 Refill [facility] Nadiya Bautista efill Request [place] DO [place] (valACYclovir (VALTREX) [address] 500 MG tablet) [place] [address] [place], [place] [phone] (Wo rk) Social History Tobacco Use Types Packs/Day Years Used Date Former Smoker Smokeless Tobacco: Never Used Alcohol Use Standard Drinks/Week Comments No 0 (1 standard drink = 0.6 oz pure alcoho l) Sex Assigned at Date Recorded Not on file documented as of this encounter Miscellaneous Notes Telephone Encounter - Bushra Wong RN - 09/23/2017 6:24 PM CDT Prescription approved per [facility] Refill Protocol. Due for annual exam. My chart reminder sent. Bushra Cassin, RN Telephone Encounter - Corazon [place] - 09/23/2017 12:46 PM CDT Requested Prescriptions Pending Prescriptions Disp Refills ??? valACYclovir (VALTREX) 500 MG tablet 6 tablet 3 Sig: Take 1 tablet (500 mg) by mouth 2 times daily There is no refill protocol information for this order Last Written Prescription Date: 09/16/2016 Last Fill Quantity: 6 tablets, # refills: 3 Last office visit: 08/20/2016 with prescribing provider: Dr. Bautista Future Office Visit: Corazon [place] Before School Babysitter documented in this encounter Plan of Treatment Not on filedocumented as of this encounter Visit Diagnoses Diagnosis HSV (herpes simplex virus) infection Herpes simplex without mention of compli cation documented in this encounter Additional Health Concerns Assessment Noted Time PHQ-9 Depression Total Score: 1 09/22/2017 7:43 AM CDT documented as of this encounter Care Teams [place] Relationship Specialty Start Date End Date Sarah Montgomery, PCP - General Family Practice 10/21/11 [facility] [address] [place] [address] Sarah Montgomery, PCP - Assigned PCP 07/27/18 [facility] [address] [place] [address] Sarah Montgomery, Assigned PCP 03/15/17 10/17/20 PA-C [address] [place] [address] documented as of this encounter
--- OUTSIDE RECORDS SUMMARY | 2022-01-03 08:23 | XMS_ITS | Encounter Summary ---
:1985 Author Organization [place] Address [address] [facility] [place] [address] Care Team Providers Name Role Phone Sarah Montgomery PA-C Primary Care Provider [phone] Reason for Visit Reason Comments UTI Encounter Details Date Type Department Care Team Description 03/10/2016 Office Visit [facility] Catalina Ahuja Dysuri a (Primary Dx) Clinic [place] POWER SYSTEM ENGINEER [address] [facility] [address] [address] [facility] [phone] [place] [address] Social History Tobacco Use Types Packs/Day [...] Sign Reading Time Taken Comments Blood Pressure 110/64 03/10/2016 9:41 AM CDT Pulse 75 03/10/2016 9:41 AM CDT Temperature 37.1 ??C (98.8 ??F) 03/10/2016 9:41 AM CDT Respiratory Rate - - Oxygen Saturation 100% 03/10/2016 9:41 AM CDT Inhaled Oxygen Concentration - - Weight 70.3 kg (155 lb) 03/10/2016 9:41 AM CDT Height 167.6 cm (5' 6) 03/10/2016 9:41 AM CDT Body Mass Index 25.02 03/10/2016 9:41 AM CDT documented in this encounter Progress Notes Catalina Ahuja NP - 03/10/2016 9:33 AM CDT SUBJECTIVE: Rhonda Tamayo is a 30 year old female who presents to clinic today for the following health issues: URINARY TRACT SYMPTOMS ?? Duration: x 3 days ?? Description frequency and urgency ?? Intensity: moderate ?? Accompanying signs and symptoms: Fever/chills: no Flank pain YES- slight Nausea and vomiting: no Vaginal symptoms: none Abdominal/Pelvic Pain: YES- slight low pain in the abdomen, also pt is 21 weeks ?? History History of frequent UTI's: YES- when she was younger History of kidney stones: no Sexually Active: no Possibility of : Yes ?? Precipitating or alleviating factors: None ?? Therapies tried and outcome: increase fluid intake and cranberry pill Outcome: mild relief Rhonda is here with symptoms of UTI. Afebrile. Took a cranberry juice and has been drinking lots of water. First and isn't sure if she has a UTI. Has a follow up appointment with Dr. Cruz next week. Problem list and histories reviewed & adjusted, as indicated. Additional history: none Patient Active Problem List Diagnosis ??? CARDIOVASCULAR SCREENING; LDL GOAL LESS THAN 160 ??? Papanicolaou smear of cervix with low grade squamous intraepithelial lesion (LGSIL) ??? HSV (herpes simplex virus) infection ??? Anxiety ??? Vitamin D deficiency ??? Constipation, unspecified constipation type ??? Encounter for supervision of normal first , unspecified trimester [Z34.00] Past Surgical History Procedure Laterality Date ??? No history of surgery Social History Substance Use Topics ??? Smoking status: Former Smoker ??? Smokeless tobacco: Never Used Comment: quit smoking 2months ago ??? Alcohol Use: Yes Comment: occasionally - weekends Family History Problem Relation Age of Onset ??? HEART DISEASE Father ME at age 42 ??? Depression Father ??? CANCER Maternal Grandmother cervical and uterine ??? Breast Cancer Maternal Grandmother dx at age 62 ??? DIABETES Maternal Grandfather ??? DIABETES Paternal Grandfather ??? Cancer - colorectal No family hx of Current Outpatient Prescriptions Medication Sig Dispense Refill ??? valACYclovir (VALTREX) 500 MG tablet Take 1 tablet (500 mg) by mouth 2 times daily 6 tablet 3 ??? Vit-Fe Fumarate-FA ( MULTIVITAMIN PLUS IRON) 27-0.8 MG TABS Take 1 tablet by mouth daily Allergies Allergen Reactions ??? Seasonal Allergies ROS: C: NEGATIVE for fever, chills, change in weight R: NEGATIVE for significant cough or SOB CV: NEGATIVE for chest pain, palpitations or peripheral edema OBJECTIVE: BP 110/64 mmHg Pulse 75 Temp(Src) 98.8 ??F (37.1 ??C) (Oral) Ht 5' 6 (1.676 m) Wt 155 lb (70.308 kg) BMI 25.03 kg/m2 SpO2 100% LMP 10/12/2015 Body mass index is 25.03 kg/(m^2). GENERAL: healthy, alert and no distress CV: regular rate and rhythm, normal S1 S2, no S3 or S4, no murmur, click or rub, no peripheral edemaand peripheral pulses strong BACK: no CVA tenderness, no paralumbar tenderness Diagnostic Test Results: Results for orders placed or performed in visit on 03/10/16 (from the past 24 hour(s)) *UA reflex to Microscopic and Culture ([facility] (except [facility]) Result Value Ref Range Color Urine Yellow Appearance Urine Clear Glucose Urine Negative NEG mg/dL Bilirubin Urine Negative NEG Ketones Urine Negative NEG mg/dL Specific [place] Urine 1.015 1.003 - 1.035 Blood Urine Negative NEG pH Urine 7.5 (H) 5.0 - 7.0 pH Protein Albumin Urine Negative NEG mg/dL Urobilinogen Urine 0.2 0.2 - 1.0 EU/dL Nitrite Urine Negative NEG Leukocyte Esterase Urine Negative NEG Source Midstream Urine ASSESSMENT/PLAN: 1. Dysuria Negative urine but will send for culture. Encouraged continuing to drink plenty of water and cranberry juice. I will call if positive culture. - *UA reflex to Microscopic and Culture ([facility] (except [place] and [place]) Patient is in agreement with the plan. Following up for next visit early next week. Catalina Ahuja NP [employer] documented in this encounter Nursing Notes Lio Cordero CMA - 03/10/2016 9:44 AM CDT Chief Complaint Patient presents with ??? UTI Initial BP 110/64 mmHg Pulse 75 Temp(Src) 98.8 ??F (37.1 ??C) (Oral) Ht 5' 6 (1.676 m) Wt 155 lb (70.308 kg) BMI 25.03 kg/m2 SpO2 100% LMP 10/12/2015 Estimated body mass index is 25.03 kg/(m^2) as calculated from the following: Height as of this encounter: 5' 6 (1.676 m). Weight as of this encounter: 155 lb (70.308 kg). BP completed using cuff size: patricia Cordero CMA documented in this encounter Plan of Treatment Not on filedocumented as of this encounter Procedures Procedure Name Priority Date/Time Associated Comments Diagnosis UA MACROSCOPIC WITH Routine 03/10/2016 9:31 AM Dysuria Re sults for this REFLEX TO MICROSCOPIC CDT proced ure are in AND CULTURE the results section. documented in this encounter Results (ABNORMAL) *UA reflex to Microscopic and Culture ([facility] and [facility] (except [place] and [place]) (03/10/2016 9:31 AM CDT) [facility] Method Time Signature Color Urine Yellow [employer] Appearance Urine Clear [employer] Glucose Urine Negative NEG mg/dL [employer] Bilirubin Urine Negative NEG [employer] Ketones Urine Negative NEG mg/dL [employer] Specific [place] 1.015 1.003 - [place] Urine 1.035 [facility] Blood Urine Negative NEG [employer] pH Urine 7.5 (H) 5.0 - 7.0 [place] pH [facility] Protein Albumin Negative NEG mg/dL [facility] Urobilinogen 0.2 0.2 - 1.0 [place] Urine EU/dL [facility] Nitrite Urine Negative NEG [employer] Leukocyte Negative NEG [place] Esterase Urine [facility] Source Midstream [place] Urine [facility] Specimen Anatomical Collection Method Collection Time Receive d Time (Source) Location / / Volume Laterality Urine specimen 03/10/2016 9:31 AM 016 9:36 (specimen) CDT AM CDT Catalina Ahuja NP LAB - URINE ORDERABLES Performing Organization Address City/State/ZIP Code Phon e Number [employer] [address] [place] [address] documented in this encounter Visit Diagnoses Diagnosis Dysuria - Primary documented in this encounter Additional Health Concerns Assessment Noted Time PHQ-9 Depression Total Score: 0 02/19/2016 7:19 AM CDT documented as of this encounter Care Teams Metal Coater Relationship Specialty Start Date End Date Sarah Montgomery PA-C PCP - General Family Practice 10/21/11 [address] [place] [address] documented as of this encounter
--- OUTSIDE RECORDS SUMMARY | 2022-01-03 08:23 | XMS_ITS | Encounter Summary ---
:1985 Author Organization [place] Address [address] [facility] [place] [address] Care Team Providers Name Role Phone Sarah Montgomery PA-C Primary Care Provider [phone] Reason for Visit Reason Comments Care Encounter Details Date Type Department Care Team Description 07/01/2016 Office [facility] Nadiya Bautista care [facility] DO [place] third trimester [place] [address] [address] (Primary Dx) [address] [facility] [address] [place] [address] [place] [address] [phone] [address] (Work) [phone] Social History Tobacco Use Types Packs/Day Years [...] Sign Reading Time Taken Comments Blood Pressure 120/70 07/01/2016 10:57 AM DONKEY DOCTOR Pulse - - Temperature - - Respiratory Rate - - Oxygen Saturation - - Inhaled Oxygen Concentration - - Weight 81.1 kg (178 lb 12.8 oz) 07/01/2016 10:57 AM DONKEY DOCTOR Height 167.6 cm (5' 6) 07/01/2016 10:57 AM DONKEY DOCTOR Body Mass Index 28.86 07/01/2016 10:57 AM DONKEY DOCTOR documented in this encounter Patient Instructions Patient InstructionsGiWaleska maharaj - 07/01/2016 11:04 AM CST Return in [address] Nadiya Bautista DO Obstetrics and Gynecology [facility] [place] EY DOCTOR documented in this encounter Progress Notes Waleska Garcia - 07/01/2016 10:59 AM CST CC: Here for routine visit @ 37w4d HPI: Patient is doing well, no concerns at this time. BP 120/70 mmHg Ht 1.676 m (5' 6) Wt 81.103 kg (178 lb 12.8 oz) BMI 28.87 kg/m2 LMP 10/12/2015 See OB flowsheet No vaginal bleeding, no LOF, some contractions This document serves as a record of the services and decisions personally performed and made by Nadiya Bautista DO. It was created on his/her behalf by Waleska Garcia, a trained medical office asst. The creation of this document is based the provider's statements to the medical office asst. Torrie Garcia 11:00 AM, July 01, 2016 ASSESSMENT/PLAN: Rhonda Tamayo is a 30 year old year old @ 37w4d wks EGA with EDC: Jul 18, 2016 who presents to the clinic for an ob visit. 1) HSV, recurrent:?? one out break 1st tm, suppression 36 weeks on ?? 2) Contact clinic if vision blurs, or other concerns about blood pressure. ?? 3) GBS neg 4) Return in 1 week. The information in this document, created by the medical office asst for me, accurately reflects the services I personally performed and the decisions made by me. I have reviewed and approved this document for accuracy prior to leaving the patient care area. Nadiya Bautista DO 11:00 AM, 07/01/2016 Dr. Nadiya Bautista DO SHEET METAL DUCT WORKER SUPERVISOR [facility] EY DOCTOR documented in this encounter Nursing Notes Digna Carty CMA - 07/01/2016 10:58 AM CST Chief Complaint Patient presents with ??? Care Initial BP 120/70 mmHg Ht 5' 6 (1.676 m) Wt 178 lb 12.8 oz (81.103 kg) BMI 28.87 kg/m2 LMP 10/12/2015 Estimated body mass index is 28.87 kg/(m^2) as calculated from the following: Height as of this encounter: 5' 6 (1.676 m). Weight as of this encounter: 178 lb 12.8 oz (81.103 kg). Medication Reconciliation: complete Digna Carty CMA EY DOCTOR documented in this encounter Plan of Treatment Not on filedocumented as of this encounter Visit Diagnoses Diagnosis care in third trimester - Prima ry documented in this encounter Additional Health Concerns Assessment Noted Time PHQ-9 Depression Total Score: 0 02/19/2016 7:19 AM CDT documented as of this encounter Care Teams It Compliance Manager Relationship Specialty Start Date End Date Sarah Montgomery PA-C PCP - General Family Practice 10/21/11 [address] [place] [address] documented as of this encounter
--- OUTSIDE RECORDS SUMMARY | 2022-01-03 08:23 | XMS_ITS | Encounter Summary ---
:1985 Author Organization [place] Address [address] [place] [address]. [place] [address] Care Team Providers Name Role Phone Sarah Montgomery PA-C Primary Care Provider [phone] Encounter Details Date Type Department Care Team Description 02/18/2016 Radiant Appointment [facility] Nadiya Bautista renatal care in [facility] first trimester [address] [place] [phone] Social History Tobacco Use Types Packs/Day Years [...] Name Priority Date/Time Associated Diagnosis Comme nts US OB > 14 WEEKS Routine 02/18/2016 9:16 AM care in R esults for this CDT first trimester procedure ar e in the results section. documented in this encounter Results US OB > 14 Weeks Complete Single (02/18/2016 9:16 AM CDT) Anatomical Region Laterality Modality Abdomen/Pelvis Ultrasound Specimen (Source) Anatomical Location Collection Method / Collectio n Time Received Time / Laterality Volume Narrative 02/19/2016 10:33 AM CDT [facility] Obstetrics & Gynecology [address] [place] [address] ULTRASOUND - COMPLETE OB (18+) Referring Provider: Nadiya Bautista [facility]: [facility] INDICATIONS FOR ULTRASOUND: OB History: Present Conditions: Initial Survey (18-26 weeks) CLINICAL INFORMATION LMP: October 07 sure EDC: Jul 11 EGA: 18w3d Previous US: Yes Location: [facility] EDC: Jul 11 correspond MEASUREMENTS BPD: 4.4cm MA: 19w2d ? Cer: 1.8cm MA:18w1d HC: 15.9cm MA: 18w5d ? AC: 13.2cm MA:18w5d FL: 2.7cm MA: 18w1d ?Hum: 2 .6cm MA:18w0d FL/AC: 20 % FL/BPD: 61% HC/AC: 1.21 FHR: reg ?YEMI: Wnl EDC: Jul 11 ?EGA: 18w4d corres pond [id number]:[id number] SURVEY Type: Bryant ? Presentation: Ceph alic Placenta location: posterior ? Grade : 0 4ChHrt: wnl ? Outflow tract:wnl ? Arches: wnl Umb cord: 3v ? Insertion: wnl ? Abdomen: wnl Nuch/Neck: wnl ? Spine: wnl ? Di aphragm: wnl Stomach: wnl ? Kidneys: wnl ? Bl adder: wnl Head: wnl ? Ventricles: wnl ? Ce rebellum: wnl Profile: wnl ? Face: wnl ? Lips: wnl Arms: wnl ? Legs: wnl ? Hands: w nl ? Feet: wnl Gender: male Complete transabdominal obstetric ultras ound. ?? Gross survey within normal limits. Corresponding sonographic and menstrual EGA and EDC. Christina Mendiola M.D. Nadiya Bautista DO IMG US ORDERABLES documented in this encounter Visit Diagnoses Diagnosis care in first trimester documented in this encounter Additional Health Concerns Assessment Noted Time PHQ-9 Depression Total Score: 0 02/19/2016 7:19 AM CDT documented as of this encounter Care Teams Grain Shipper Relationship Specialty Start Date End Date Sarah Montgomery PA-C PCP - General Family Practice 10/21/11 [address] [place] [address] documented as of this encounter
--- OUTSIDE RECORDS SUMMARY | 2022-01-03 08:23 | XMS_ITS | Encounter Summary ---
:1985 Author Organization [place] Address [address] [place] [address] Care Team Providers Name Role Phone Sarah Montgomery PA-C Primary Care Provider [phone] Encounter Details Date Type Department Care Team Description 03/28/2016 Telephone [facility] Nurse Kiya Michel , RN [facility] [address] [facility] [place] [address] Social History Tobacco Use Types Packs/Day [...] this encounter Miscellaneous Notes Telephone Encounter - Kiya Michel RN - 03/28/2016 7:19 AM CDT Call Type: Triage Call Presenting Problem: EVE: 07/18/16. Onset last evening 2 1930 hrs. of low back pain. It started on the (L) lower side and then going into both sides and lower left in the front too. Dr. Mendiola paged to [phone] @ 0714 hrs. Triage Note: Guideline Title: : Labor, 20 to 37 Weeks Recommended Disposition: Call Provider Immediately Original Inclination: Would have called clinic Override Disposition: Intended Action: Follow advice given Physician Contacted: No Constant or intermittent low [...] the patient anything to eat or drink. IMMEDIATE ACTION Lie on left side to improve circulation to the fetus. Call EMS 911 if any of these occur: profuse bright red vaginal bleeding continuous (without relaxation) abdominal pain the umbilical cord or any part in vagina bag of amin coming through vagina feeling of wanting to push or have a bowel movement. documented in this encounter Plan of Treatment Not on filedocumented as of this encounter Visit Diagnoses Not on filedocumented in this encounter Additional Health Concerns Assessment Noted Time PHQ-9 Depression Total Score: 0 02/19/2016 7:19 AM CDT documented as of this encounter Care Teams Stock Grader Relationship Specialty Start Date End Date Ronaldo-Sarah Doshi PA-C PCP - General Family Practice 10/21/11 [address] [place] [address] documented as of this encounter
--- OUTSIDE RECORDS SUMMARY | 2022-01-03 08:23 | XMS_ITS | Encounter Summary ---
:1985 Author Organization [place] Address [facility] [place] [address] Care Team Providers Name Role Phone Sarah Montgomery PA-C Primary Care Provider Reason for Visit Reason Comments Abdominal Pain Encounter Details Date Type Department Care Team Description 05/17/2016 - Hospital Encounter [facility] Nadiya Bautista 05/18/2016 [facility] [place] [address] [facility] [address] [facility] [address] [place], [place] [phone] [id number] Social History Tobacco Use Types Packs/Day Years [...] Sign Reading Time Taken Comments Blood Pressure 112/77 05/17/2016 11:15 PM TABULATING CLERK Pulse 70 05/17/2016 11:15 PM TABULATING CLERK Temperature 37.1 ??C (98.7 ??F) 05/17/2016 11:15 PM TABULATING CLERK Respiratory Rate 16 05/17/2016 11:15 PM TABULATING CLERK Oxygen Saturation - - Inhaled Oxygen Concentration - - Weight 73 kg (161 lb) 05/17/2016 11:15 PM TABULATING CLERK Height 167.6 cm (5' 6) 05/17/2016 11:15 PM TABULATING CLERK Body Mass Index 25.99 05/17/2016 11:15 PM TABULATING CLERK documented in this encounter Discharge Instructions Discharge InstructionsRossi Kelly RN - 05/18/2016 1:18 AM CST Discharge Instruction for Undelivered Patients You were seen for: Labor Assessment and Assessment We Consulted: Dr Bautista You had (Test or Medicine):External and Uterine Monitoring, Urinalysis, Wet Prep, Sterile Vaginal Exam Diet: Drink 8 to 12 glasses of liquids (milk, juice, water) every day. You may eat meals and snacks. Activity: Count kicks everyday (see handout) Call your doctor or nurse job hand if your baby is moving less than usual. Call your provider if you notice: Swelling in your face or increased swelling in your hands or legs. Headaches that are not relieved by Tylenol (acetaminophen). Changes in your vision (blurring: seeing spots or stars.) Nausea (sick to your stomach) and vomiting (throwing up). Weight gain of 5 pounds or more per week. Heartburn that doesn't go away. Signs of bladder infection: pain when you urinate (use the toilet), need to go more often and more urgently. The bag of amin (rupture of membranes) breaks, or you notice leaking in your underwear. Bright red blood in your underwear. Abdominal (lower belly) or stomach pain. For first baby: Contractions (tightening) less than 5 minutes apart for one hour or more. Second (plus) baby: Contractions (tightening) less than 10 minutes apart and getting stronger. *If less than 34 weeks: Contractions (tightenings) more than 6 times in one hour. Increase or change in vaginal discharge (note the color and amount) Other: Miralax as suggested for constipation Follow-up: As scheduled in the clinic LATING CLERK AttachmentsThe following attachments cannot be sent through Care Everywhere.KICK COUNTS (HAITIAN)CONSTIPATION (ADULT) (HAITIAN)BACK PAIN DURING , RELIEVING: TAILOR SIT, TRUNK TURN (HAITIAN)BACK PAIN (LOW) OR LEG PAIN: POSSIBLE CAUSES (HAITIAN)documented in this encounter Medications at Time of Discharge Medication Sig Dispensed Refills Start Date End Date Vit-Fe Take 1 tablet by 0 Fumarate-FA ( mouth daily Reported MULTIVITAMIN PLUS IRON) on 08/20/2016 27-0.8 MG TABS valACYclovir (VALTREX) Take 1 tablet (500 6 tablet 3 12/1806/16/2016 500 MG tabletIndications: mg) by mouth 2 times HSV (herpes simplex daily virus) infection documented as of this encounter Miscellaneous Notes Plan of Care - Rossi Kelly RN - 05/18/2016 1:23 AM CST Written and verbal discharge instructions provided to pt and SO, both verbalize understanding. Pt ambulates off floor with steady gait in stable condition. LATING CLERK Provider Notification - Rossi Kelly RN - 05/18/2016 1:05 AM CST 05/18/16 0104 Provider Notification Provider Name/Title Dr Bautista Method of Notification Phone Request Evaluate - Remote Notification Reason Patient Arrived;Membrane Status;Labor Status;Pain;Lab/Diagnostic Study;Status Update;SVE Physician notified 31.2 here with C/O mid/lower back pain, sharp right hip pain, pelvic pain with ambulation, and constipation. Category 1 tracing, irregular ctx, UA and wet prep negative, SVE closed. Denies ARELLANO, LOF, VB, vision changes, frequent urination. Orders received to DC home. LATING CLERK Plan of Care - Rossi Kelly RN - 05/17/2016 10:50 PM CST 31.1 here with c/o mid/lower back and pelvic pain when ambulating and sharp pain in her right hip. 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 Pt states she is constipated and takingprune juice. Assessment completed as charted, SVE closed. Will continue to monitor. LATING CLERK documented in this encounter Plan of Treatment Not on filedocumented as of this encounter Procedures Procedure Name Priority Date/Time Associated Comments Diagnosis WET PREPARATION STAT 05/17/2016 11:48 Results for this PM TABULATING CLERK procedure are i n the results section. ROUTINE UA WITH STAT 05/17/2016 10:55 Results for this MICROSCOPIC REFLEX TO PM TABULATING CLERK proced ure are in CULTURE the results section. documented in this encounter Results Wet prep (05/17/2016 11:48 PM TABULATING CLERK) [facility] Method Time Signature Specimen Vagina [facility] Wet Prep Few WBC'S seen [facility] No Trichomonas seen [facility] No clue cells seen [facility] No yeast seen Micro Report FINAL [facility] Status 05/18/2016 [facility] Specimen Anatomical Collection Method Collection Time Receive d Time (Source) Location / / Volume Laterality Specimen from 05/17/2016 11:48 05/18/2016 vagina PM TABULATING CLERK 12:15 AM TABULATING CLERK (specimen) Nadiya Bautista DO LAB - MICRO GENERAL ORDERABL ES Performing Organization Address City/State/ZIP Code Phon e Number M [facility] [address] [address] [facility] [address] [phone] (ABNORMAL) UA with Microscopic reflex to Culture (05/17/2016 10:55 PM TABULATING CLERK) [facility] Method Time Signature Color Urine Straw [facility] Appearance Urine Clear [facility] Glucose Urine Negative NEG mg/dL [facility] Bilirubin Urine Negative NEG [facility] Ketones Urine Negative NEG mg/dL [facility] Specific Mobile 1.002 (L) 1.003 - [facility] Urine 1.035 [facility] Blood Urine Negative NEG [facility] pH Urine 6.0 5.0 - 7.0 [facility] pH [facility] Protein Albumin Negative NEG mg/dL [facility] Urobilinogen Normal 0.0 - 2.0 [place] mg/dL mg/dL [facility] Nitrite Urine Negative NEG [facility] Leukocyte Negative NEG [facility] Esterase Urine [facility] Source Midstream [facility] Urine [facility] WBC Urine 0 0 - 2 [facility] RBC Urine 0 0 - 2 [facility] Bacteria Urine Few (A) NEG /HPF [facility] Squamous <1 0 - 1 [facility] Epithelial /HPF /HPF [facility] Specimen Anatomical Collection Method Collection Time Receive d Time (Source) Location / / Volume Laterality Urine specimen URINE SPECIMEN 05/17/2016 10:55 016 (specimen) OBTAINED BY CLEAN PM TABULATING CLERK 11:[address] CATCH PROCEDURE / Unknown Nadiya Bautista DO LAB - URINE ORDERABLES Performing Organization Address City/State/ZIP Code Phon e Number M [place] [address] [address] [facility] [address] [place], [place] [address] [place] [address] documented in this encounter Visit Diagnoses Diagnosis Encounter for triage in patient documented in this encounter Additional Health Concerns Assessment Noted Time PHQ-9 Depression Total Score: 0 02/19/2016 7:19 AM CDT documented as of this encounter Care Teams Magnet Valve Assembler Relationship Specialty Start Date End Date Sarah Montgomery PA-C PCP - General Family Practice 10/21/11 [address] [place] [address] documented as of this encounter
--- OUTSIDE RECORDS SUMMARY | 2022-01-03 08:23 | XMS_ITS | Encounter Summary ---
:1985 Author Organization [place] Address [facility] [place] [address] Care Team Providers Name Role Phone Sarah Montgomery PA-C Primary Care Provider [phone] Reason for Visit Reason Comments Care Encounter Details Date Type Department Care Team Description 03/17/2016 Office [facility] Nadiya Bautista care in Visit Clinic [facility] second trimester [id number] [place] [address] (Primary Dx) [facility] [phone] [facility] [phone] [place] [address] Social History Tobacco Use Types Packs/Day [...] Sign Reading Time Taken Comments Blood Pressure 100/60 03/17/2016 11:21 AM CDT Pulse 80 03/17/2016 11:21 AM CDT Temperature 36.7 ??C (98 ??F) 03/17/2016 11:21 AM CDT Respiratory Rate - - Oxygen Saturation 98% 03/17/2016 11:21 AM CDT Inhaled Oxygen Concentration - - Weight 71.1 kg (156 lb 12.8 oz) 03/17/2016 11:21 AM CDT Height 167.6 cm (5' 6) 03/17/2016 11:21 AM CDT Body Mass Index 25.31 03/17/2016 11:21 AM CDT documented in this encounter Patient Instructions Patient InstructionsNgAmrik gordon - 03/17/2016 11:41 AM CDT Return to clinic in 4 weeks for follow-up. documented in this encounter Progress Notes Nadiya Bautista DO - 03/17/2016 11:28 AM CDT CC: Here for routine visit @ 22w3d HPI: Patient states she does not feel like she is gaining enough weight. She states she is eating 3xtimes daily, but is not overly hungry and does not snack. Upon chart review she has been gaining weight appropriately and re-assured of this. BP 100/60 mmHg Pulse 80 Temp(Src) 98 ??F (36.7 ??C) (Oral) Ht 5' 6 (1.676 m) Wt 156 lb 12.8oz (71.124 kg) BMI 25.32 kg/m2 SpO2 98% LMP 10/12/2015 See OB flowsheet No vaginal bleeding, no LOF, no contractions This document serves as a record of the services and decisions personally performed and made by Nadiya Bautista DO. It was created on his/her behalf by Amrik Dominguez and Eve Sandoval, trained medical scribes. The creation of this document is based the provider's statements to the medical scribes. Scribe Amrik Dominguez and Eve Sandoval 11:40 AM, March 17, 2016 ASSESSMENT/PLAN: Rhonda Tamayo is a 30 year old year old @ 22w3d wks EGA with EDC 07/18/16 who presents to the clinic for an ob visit. 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 3) Follow up in 4 weeks The information in this document, created by the director medical for me, accurately reflects the services I personally performed and the decisions made by me. I have reviewed and approved this document for accuracy prior to leaving the patient care area. Nadiya Bautista DO 11:40 AM, 03/17/2016 Dr. Nadiya Bautista DO EHS SPECIALIST [facility] documented in this encounter Plan of Treatment Not on filedocumented as of this encounter Visit Diagnoses Diagnosis care in second trimester - Prim steve documented in this encounter Additional Health Concerns Assessment Noted Time PHQ-9 Depression Total Score: 0 02/19/2016 7:19 AM CDT documented as of this encounter Care Teams Elevator Repairer Apprentice Relationship Specialty Start Date End Date Sarah Montgomery PA-C PCP - General Family Practice 10/21/11 [address] [place] [address] documented as of this encounter
--- OUTSIDE RECORDS SUMMARY | 2022-01-03 08:23 | XMS_ITS | Encounter Summary ---
:1985 Author Organization [place] Address [address] [place] [address] Care Team Providers Name Role Phone Sarah Montgomery PA-C Primary Care Provider [phone] Reason for Visit Reason Comments Care Imm/Inj TDAP Encounter Details Date Type Department Care Team Description 04/14/2016 Office [facility] Andres Franco for Visit [facility] MD Bertha supervision of Kiana [address] normal first [address] [place] [address] trimester (Primary [address] Dx) [place], [place] (Work) [phone] Social History Tobacco Use Types Packs/Day [...] Reading Time Taken Comments Blood Pressure 110/70 04/14/2016 11:00 AM HAND STITCHER Pulse - - Temperature - - Respiratory Rate - - Oxygen Saturation - - Inhaled Oxygen Concentration - - Weight 73.1 kg (161 lb 1.6 oz) 04/14/2016 11:00 AM HAND STITCHER Height 167.6 cm (5' 6) 04/14/2016 11:00 AM HAND STITCHER Body Mass Index 26 04/14/2016 11:00 AM HAND STITCHER documented in this encounter Progress Notes Andres Franco MD - 04/14/2016 2:42 PM CST IUP at 26 weeks; questions reviewed STITCHER documented in this encounter Nursing Notes Digna Carty CMA - 04/14/2016 11:05 AM CST 26w3d Chief Complaint Patient presents with ??? Care ??? Imm/Inj TDAP Initial BP 110/70 mmHg Ht 5' 6 (1.676 m) Wt 161 lb 1.6 oz (73.074 kg) BMI 26.01 kg/m2 LMP 10/12/2015 Estimated body mass index is 26.01 kg/(m^2) as calculated from the following: Height as of this encounter: 5' 6 (1.676 m). Weight as of this encounter: 161 lb 1.6 oz (73.074 kg). BP completed using cuff size: patricia Carty CMA STITCHER documented in this encounter Plan of Treatment Not on filedocumented as of this encounter Procedures Procedure Name Priority Date/Time Associated Diagnosis Comme nts GLUCOSE TOLERANCE Routine 04/14/2016 11:27 AM Encounter for Re sults for this GEST SCREEN 1 HOUR HAND STITCHER supervision of procedu re are in normal first the results in second section. trimester ANTI TREPONEMA Routine 04/14/2016 11:27 AM Encounter for Resul ts for this HAND STITCHER supervision of procedure are in normal first the results in second section. trimester CBC WITH PLATELETS Routine 04/14/2016 11:27 AM Encounter for R esults for this HAND STITCHER supervision of procedure are in normal first the results in second section. trimester documented in this encounter Results Anti Treponema (04/14/2016 11:27 AM HAND STITCHER) Analysis Performed At Patho logist Time Signature Treponema Negative NEG [facility] [place] [facility] Specimen Anatomical Collection Method Collection Time Receive d Time (Source) Location / / Volume Laterality Blood specimen 04/14/2016 11:27 6 (specimen) AM HAND STITCHER 11:32 AM HAND STITCHER Andres Franco MD LAB - BLOOD ORDERABLES Performing Organization Address City/State/ZIP Code Phon e Number [facility] [address] [place] [address] [facility] CBC with platelets (04/14/2016 11:27 AM HAND STITCHER) athologist Signature WBC 6.6 4.0 - 11.0 [place] 10e9/L [facility] RBC Count 3.98 3.8 - 5.2 [place] 10e12/L [facility] Hemoglobin 12.5 11.7 - [place] 15.7 g/dL [facility] Hematocrit 37.5 35.0 - [place] 47.0 % [facility] MCV 94 78 - 100 [place] [facility] MCH 31.4 26.5 - [place] 33.0 pg [facility] MCHC 33.3 31.5 - [place] 36.5 g/dL [facility] RDW 12.7 10.0 - [place] 15.0 % [facility] Platelet Count 220 150 - 450 [place] 10e9/L [facility] Specimen Anatomical Collection Method Collection Time Receive d Time (Source) Location / / Volume Laterality Blood specimen 04/14/2016 11:27 6 (specimen) AM HAND STITCHER 11:32 AM HAND STITCHER Andres Franco MD LAB - BLOOD ORDERABLES Performing Organization Address City/[facility]/ZIP Code Phon e Number [facility] [address] [place], [place] [address] [address] Glucose tolerance, gest screen, 1 hour (04/14/2016 11:27 AM HAND STITCHER) P athologist Signature Glu Gest 80 60 - 129 [facility] Screen 1hr 50g mg/dL [facility] Specimen Anatomical Collection Method Collection Time Receive d Time (Source) Location / / Volume Laterality Blood specimen 04/14/2016 11:27 6 (specimen) AM HAND STITCHER 11:32 AM HAND STITCHER Andres Franco MD LAB - BLOOD ORDERABLES Performing Organization Address City/State/ZIP Code Phon e Number [facility] [address] [place] [address] documented in this encounter Visit Diagnoses Diagnosis Encounter for supervision of normal firs t in second trimester - Primary Supervision of normal first documented in this encounter Additional Health Concerns Assessment Noted Time PHQ-9 Depression Total Score: 0 02/19/2016 7:19 AM CDT documented as of this encounter Care Teams Wire Weaver Relationship Specialty Start Date End Date Sarah Montgomery PA-C PCP - General Family Practice 10/21/11 [address] [place] [address] documented as of this encounter
--- OUTSIDE RECORDS SUMMARY | 2022-01-03 08:23 | XMS_ITS | Encounter Summary ---
:1985 Author Organization [place] Address [facility] [place] [address] Care Team Providers Name Role Phone Sarah Montgomery PA-C Primary Care Provider [phone] Reason for Visit Reason Comments Care Encounter Details Date Type Department Care Team Description 05/19/2016 Office [facility] [address] first in [place], [place] S third trimester [id number] [place], (Primary Dx) [phone] [place] [address] Social History Tobacco Use Types Packs/Day [...] Reading Time Taken Comments Blood Pressure 100/66 05/19/2016 3:56 PM STEAM CLEANING MACHINE OPERATOR Pulse 83 05/19/2016 3:56 PM STEAM CLEANING MACHINE OPERATOR Temperature 36.4 ??C (97.5 ??F) 05/19/2016 3:56 PM STEAM CLEANING MACHINE OPERATOR Respiratory Rate - - Oxygen Saturation 98% 05/19/2016 3:56 PM STEAM CLEANING MACHINE OPERATOR Inhaled Oxygen Concentration - - Weight 76.7 kg (169 lb 1.6 oz) 05/19/2016 3:56 PM STEAM CLEANING MACHINE OPERATOR Height 167.6 cm (5' 6) 05/19/2016 3:56 PM STEAM CLEANING MACHINE OPERATOR Body Mass Index 27.29 05/19/2016 3:56 PM STEAM CLEANING MACHINE OPERATOR documented in this encounter Patient Instructions Patient InstructionsEve Sandoval CMA - 05/19/2016 4:12 PM CST Return to clinic in 2 weeks. M CLEANING MACHINE OPERATOR documented in this encounter Progress Notes Eve Sandoval CMA - 05/19/2016 4:08 PM CST CC: Here for routine visit @ 31w3d HPI: Patient states she went to the ED for back and side pains, but they did not find anything but probable contractions. She still complains of this pain today, but pain has lessened. She reports baby is active. BP 100/66 mmHg Pulse 83 Temp(Src) 97.5 ??F (36.4 ??C) (Oral) Ht 1.676 m (5' 6) Wt 76.703 kg(169 lb 1.6 oz) BMI 27.31 kg/m2 SpO2 98% LMP 10/12/2015 See OB flowsheet No vaginal bleeding, no LOF, no contractions This document serves as a record of the services and decisions personally performed and made by Nadiya Bautista DO. It was created on his/her behalf by Eve Sandoval, a trained medical equipment repair technician. The creation of this document is based the provider's statements to the medical equipment repair technician. Scribe Eve Sandoval 4:11 PM, May 19, 2016 ASSESSMENT/PLAN: Rhonda Tamayo is a 30 year old year old @ 31w3d wks EGA with EDC 07/18/16 who presents to the clinic for an ob visit. 1) HSV, recurrent:?? one out break 1st tm, suppression 36 weeks on ?? 2) declined genetic testing ?? 3) Follow up in [address] Nadiya Bautista DO [employer] [facility] The information in this document, created by the medical equipment repair technician for me, accurately reflects the services I personally performed and the decisions made by me. I have reviewed and approved this document for accuracy prior to leaving the patient care area. Nadiya Bautista DO 4:09 PM, 05/19/2016 M CLEANING MACHINE OPERATOR documented in this encounter Nursing Notes Eli Saucedo - 05/19/2016 3:57 PM CST Chief Complaint Patient presents with ??? Care Initial BP 100/66 mmHg Pulse 83 Temp(Src) 97.5 ??F (36.4 ??C) (Oral) Ht 5' 6 (1.676 m) Wt 169 lb 1.6 oz (76.703 kg) BMI 27.31 kg/m2 SpO2 98% LMP 10/12/2015 Estimated body mass index is 27.31 kg/(m^2) as calculated from the following: Height as of this encounter: 5' 6 (1.676 m). Weight as of this encounter: 169 lb 1.6 oz (76.703 kg). BP completed using cuff size: regular right arm ALEXI Fleming M CLEANING MACHINE OPERATOR documented in this encounter Plan of Treatment Not on filedocumented as of this encounter Visit Diagnoses Diagnosis Encounter for supervision of normal firs t in third trimester - Primary Supervision of normal first documented in this encounter Additional Health Concerns Assessment Noted Time PHQ-9 Depression Total Score: 0 02/19/2016 7:19 AM CDT documented as of this encounter Care Teams Senior Interactive Producer Relationship Specialty Start Date End Date Ronaldo-Sarah Doshi PA-C PCP - General Family Practice 10/21/11 [address] [place] [address] documented as of this encounter
--- OUTSIDE RECORDS SUMMARY | 2022-01-03 08:23 | XMS_ITS | Encounter Summary ---
:1985 Author Organization [place] Address [address] [place] [address] Care Team Providers Name Role Phone Sarah Montgomery PA-C Primary Care Provider [phone] Sarah Montgomery PA-C Unavailable Sarah Montgomery PA-C Unavailable Reason for Referral Referral not Required - Closed Specialty Diagnoses / Procedures Referred By Contact Refer red To Contact Diagnoses Palpitations Racing heart beat Sarah Montgomery [facility] [place] [address] [place] [address] nap- [place] [address] [place] [address] Phone: [phone] Fax: Referral ID Status Reason Start Date Expiration Date Visits Requ ested Visits Authorized [id number] Closed 10/08/2017 10/08/2018 1 1 V Cardio consult - Closed Specialty Diagnoses / Procedures Referred By Contact Refer red To Contact Diagnoses Racing heart beat Palpitations Family history of ischemic heart disease Sarah Montgomery [facility] [place] [address] [place] [address] [place] [address] [place] [address] Phone: [phone] Fax: Referral ID Status Reason Start Date Expiration Date Visits Requ ested Visits Authorized [id number] Closed 10/08/2017 10/08/2018 1 1 Reason for Visit Reason Comments Er F/u Encounter Details Date Type Department Care Team Description 10/08/2017 Office Visit [facility] [place], Racing heart beat (Primary Dx); Clinic [place] Sarah Aguilar PA-C Palpitations; [address] [address] [facility] Family history of [place] [address] [phone] Social History Tobacco Use Types Packs/Day Years Used Date Former Smoker Smokeless Tobacco: Never Used Alcohol Use Standard Drinks/Week Comments No 0 (1 standard drink = 0.6 oz pure alcoho l) Sex Assigned at Date Recorded Not on file documented as of this encounter Last Filed Vital Signs Vital Sign Reading Time Taken Comments Blood Pressure 110/80 10/08/2017 1:38 PM CDT Pulse 86 10/08/2017 1:38 PM CDT Temperature 37.3 ??C (99.1 ??F) 10/08/2017 1:38 PM CDT Respiratory Rate 16 10/08/2017 1:38 PM CDT Oxygen Saturation - - Inhaled Oxygen Concentration - - Weight 70.3 kg (155 lb) 10/08/2017 1:38 PM CDT Height - - Body Mass Index 25.02 09/21/2017 1:03 PM CDT documented in this encounter Progress Notes Sarah Montgomery PA-C - 10/08/2017 1:30 PM CDT SUBJECTIVE: Rhonad Tamayo is a 31 year old female who presents to clinic today for the following health issues: ED/UC Followup: Facility: [facility] Date of visit: 10/07/2017 Reason for visit: Heart racing, heart palpitations Current Status: some heart palpitations this am Has had some palpitations over the last few weeks and then woke up last night and felt heart racing and felt strange so went to ed. Her HR was in 140 range Had labs taken including d-dimer which was negative.m was given lopresser 5 mg and ativan And rate came down. Was discharged with ativan. She hasnt had to use this. And feels fine right now. She was seen for palpitations years ago and was supposedto get an event monitor but didn't follow-up as symptoms seemed to resolve. Her father of CT atthe age of 42. Was a non-smoker and healthy Problem list and histories reviewed & adjusted, as indicated. Additional history: as documented Current Outpatient Prescriptions Medication Sig Dispense Refill ??? fluticasone (FLONASE) 50 MCG/ACT spray [place] 1-2 sprays into both nostrils daily 16 g 0 ??? valACYclovir (VALTREX) 500 MG tablet Take 1 tablet (500 mg) by mouth 2 times daily 6 tablet 3 ??? LORazepam (ATIVAN) 1 MG tablet Take 1 mg by mouth every 6 hours as needed for anxiety BP Readings from Last 3 Encounters: 10/08/17 110/80 09/21/17 110/80 12/21/16 110/67 Wt Readings from Last 3 Encounters: 10/08/17 155 lb (70.3 kg) 09/21/17 157 lb 12.8 oz (71.6 kg) 08/20/16 155 lb 8 oz (70.5 kg) Reviewed and updated as needed this visit by clinical staff Tobacco Allergies Meds Med Hx Surg Hx Fam Hx Soc Hx Reviewed and updated as needed this visit by Provider ROS: Constitutional, HEENT, cardiovascular, pulmonary, gi and gu systems are negative, except as otherwise noted. OBJECTIVE: BP 110/80 (BP Location: Right arm, Patient Position: Chair, Cuff Size: Adult Regular) Pulse 86 Temp 99.1 ??F (37.3 ??C) (Oral) Resp 16 Wt 155 lb (70.3 kg) BMI 25.02 kg/m2 Body mass index is 25.02 kg/(m^2). GENERAL APPEARANCE: healthy, alert and no distress HENT: ear canals and TM's normal and nose and mouth without ulcers or lesions NECK: no adenopathy, no asymmetry, masses, or scars and thyroid normal to palpation RESP: lungs clear to auscultation - no rales, rhonchi or wheezes CV: regular rates and rhythm, normal S1 S2, no S3 or S4 and no murmur, click or rub LYMPHATICS: no cervical adenopathy MS: extremities normal- no gross deformities noted Diagnostic test results: Diagnostic Test Results: none ASSESSMENT/PLAN: 1. Racing heart beat - CARDIOLOGY EVAL ADULT REFERRAL - TSH with free T4 reflex - CBC with platelets differential 2. Palpitations - CARDIOLOGY EVAL ADULT REFERRAL - TSH with free T4 reflex - CBC with platelets differential 3. Family history of ischemic heart disease - CARDIOLOGY EVAL ADULT REFERRAL - TSH with free T4 reflex - CBC with platelets differential Well need to get event monitor and follow-up with cardiology due to strong family history of early CT Sarah Montgomery PA-C [facility] documented in this encounter Plan of Treatment Scheduled Referrals Name Type Priority Associated Diagnoses Order S chedule CARDIOLOGY EVAL ADULT Referral Routine Racing hea rt beat Ordered: 10/08/2017 REFERRAL Palpitations Family history of ischemic heart disease CARDIOLOGY PROCEDURE Referral Routine Palpitation s Ordered: 10/08/2017 ADULT REFERRAL Racing heart beat documented as of this encounter Procedures Procedure Name Priority Date/Time Associated Comments Diagnosis CBC WITH PLATELETS & Routine 10/08/2017 1:53 PM Racing h eart beat Results for this DIFFERENTIAL CDT Palpitations procedure are in Family history of the result s ischemic heart section. disease TSH WITH FREE T4 Routine 10/08/2017 1:53 PM Racing heart beat Results for this REFLEX CDT Palpitations procedure are in Family history of the result s ischemic heart section. disease documented in this encounter Results CBC with platelets differential (10/08/2017 1:53 PM CDT) [facility] Method Time Signature WBC 6.0 4.0 - 10/08/2017 [place] 11.0 2:10 PM CDT [facility] 10e9/L [place] RBC Count 4.83 3.8 - 5.2 10/08/2017 [facility] 10e12/L 2:10 PM CDT [facility] [place] Hemoglobin 14.6 11.7 - 10/08/2017 [facility] 15.7 g/dL 2:10 PM CDT [facility] [place] Hematocrit 43.5 35.0 - 10/08/2017 [facility] 47.0 % 2:10 PM CDT [facility] [place] MCV 90 78 - 100 10/08/2017 [facility] fl 2:10 PM CDT [facility] [place] MCH 30.2 26.5 - 10/08/2017 [facility] 33.0 pg 2:10 PM CDT [facility] [place] MCHC 33.6 31.5 - 10/08/2017 [facility] 36.5 g/dL 2:10 PM CDT [facility] [place] RDW 12.9 10.0 - 10/08/2017 [facility] 15.0 % 2:10 PM CDT [facility] [place] Platelet Count 306 150 - 450 10/08/2017 [facility] 10e9/L 2:10 PM CDT [facility] [place] Diff Method Automated 10/08/2017 [facility] Method 2:11 PM CDT [facility] [place] % Neutrophils 48.9 % 10/08/2017 [facility] 2:11 PM CDT [facility] [place] % Lymphocytes 38.3 % 10/08/2017 [facility] 2:11 PM CDT [facility] [place] % Monocytes 10.5 % 10/08/2017 [facility] 2:11 PM CDT [facility] [place] % Eosinophils 1.8 % 10/08/2017 [facility] 2:11 PM CDT [facility] [place] % Basophils 0.5 % 10/08/2017 [facility] 2:11 PM CDT [facility] [place] Absolute 2.9 1.6 - 8.3 10/08/2017 [facility] Neutrophil 10e9/L 2:11 PM CDT [facility] [place] Absolute 2.3 0.8 - 5.3 10/08/2017 [facility] Lymphocytes 10e9/L 2:11 PM CDT [facility] [place] Absolute 0.6 0.0 - 1.3 10/08/2017 [facility] Monocytes 10e9/L 2:11 PM CDT [facility] [place] Absolute 0.1 0.0 - 0.7 10/08/2017 [facility] Eosinophils 10e9/L 2:11 PM CDT [facility] [place] Absolute 0.0 0.0 - 0.2 10/08/2017 [facility] Basophils 10e9/L 2:11 PM CDT [facility] Specimen Anatomical Collection Method Collection Time Receive d Time (Source) Location / / Volume Laterality Blood specimen 10/08/2017 1:53 PM 018 1:54 (specimen) CDT PM CDT Sarah Montgomery PA-C LAB - BLOOD ORDERABLES Performing Organization Address City/[facility]/ZIP Code Phon e Number [facility] [id number] [place] [address]. [place] [address] TSH with free T4 reflex (10/08/2017 1:53 PM CDT) P athologist Signature TSH 2.24 0.40 - 4.00 10/09/2017 [facility] mU/L 10:36 AM CDT [facility] Specimen Anatomical Collection Method Collection Time Receive d Time (Source) Location / / Volume Laterality Blood specimen 10/08/2017 1:53 PM 018 1:54 (specimen) CDT PM CDT Sarah Montgomery PA-C LAB - BLOOD ORDERABLES Performing Organization Address City/[facility] Code Phon e Number [facility] [address] [place] [address] documented in this encounter Visit Diagnoses Diagnosis Racing heart beat - Primary Tachycardia, unspecified Palpitations Family history of ischemic heart disease documented in this encounter Additional Health Concerns Assessment Noted Time PHQ-9 Depression Total Score: 1 09/22/2017 7:43 AM CDT documented as of this encounter Care Teams Tool Design Drafter Relationship Specialty Start Date End Date Sarah Montgomery PCP - General Family Practice 10/21/11 [place] [address] [place] [address] Sarah Montgomery PCP - Assigned PCP 07/27/18 [place] [address] [place] [address] Sarah Montgomery, Assigned PCP 03/15/17 10/17/20 [place] [address] [place] [address] documented as of this encounter
--- OUTSIDE RECORDS SUMMARY | 2022-01-03 08:23 | XMS_ITS | Encounter Summary ---
:1985 Author Organization [place] Address [address] [place] [address] Care Team Providers Name Role Phone Sarah Montgomery PA-C Primary Care Provider [phone] Encounter Details Date Type Department Care Team Description 09/13/2016 Telephone [facility] Nurse Michelle Ardon, RN [facility] [address] [place] [address] Social History Tobacco Use Types Packs/Day Years Used Date Former Smoker Smokeless Tobacco: Never Used Alcohol Use Standard Drinks/Week Comments No 0 (1 standard drink = 0.6 oz pure alcoho l) Sex Assigned at Date Recorded Not on file documented as of this encounter Miscellaneous Notes Telephone Encounter - Beth Ardon RN - 09/13/2016 10:33 PM CDT Call Type: Triage Call Presenting Problem: She had a baby 07/07/16 and she started having her period today and she just passed a piece of tissue that was about the size of her pinky finger and she is on bcp's. She is not in pain and does not have a fever. She feels fine She had a vaginal delivery and she had her post check up. If she has another piece of tissue pass she will go to ER. She will call clinic on Thursday to report this incident. Triage Note: Guideline Title: : Problems ; : Problems Recommended Disposition: Provide Home/Self Care Original Inclination: Would have called clinic Override Disposition: Call Provider When Office is Open Intended Action: Follow advice given Physician Contacted: No All other situations ? YES Night sweats ? NO Constipation ? NO Moderate to severe perineal, episiotomy OR rectal pain ? NO Breast symptoms ? NO blues, depression or family adjustment problems ? NO Fatigue lasting two weeks or more ? NO Generalized muscle aches AND no temp elevation ? NO Severe breathing problems ? NO Breathing problems ? NO Requesting information on sexual activity OR contraception ? NO New or worsening signs and symptoms that may indicate shock ? NO Moderate rectal bleeding (more than streaks of blood on tissue or in toilet) ? NO Moderate bright red vaginal bleeding ? NO Skin pigment changes or hair loss ? NO Moderate abdominal pain, worse than menstrual cramping AND any temperature elevation ? NO Urinary tract symptoms AND any flank, low back or lower abdominal pain AND any temperature elevation ? NO Seizure hasn't stopped (continuous) OR does not fully awaken between seizures ? NO Unbearable abdominal/pelvic pain ? NO Loss of bowel or bladder control ? NO No bowel movement for 1 week or more AND has tried home care ? NO Persistent mild bright red vaginal bleeding for more than 14 days ? NO Temperature of 101.5 F (38.6 C) or greater that has not responded to 24 hours of home care measures ? NO Continuous or repeated vomiting for more than 8 hours AND unable to keep any fluids down ? NO Post-surgical problem(s) related to is primary concern ? NO Moderate to severe perineal, episiotomy or rectal pain AND any temperature elevation ? NO Episiotomy incision gaping or purulent drainage from incision AND any temperature elevation ? NO Episiotomy incision gaping or purulent drainage from incision ? NO Moderate abdominal or pelvic pain, worse than menstrual-like cramping ? NO Swollen, hard, painful hemorrhoids or scant to light rectal bleeding AND not responding to home care ? NO First or probable first seizure that has stopped AND now fully awake ? NO Profuse vaginal bleeding not contained by pads or tampons ? NO Heavy vaginal bleeding (soaking 1 pad/tampon every hour for 2 hours or more) ? NO Urinary tract symptoms AND any flank or low back pain ? NO Mild to moderate vaginal bleeding with mild abdominal cramping or low backache ? NO Foul smelling or unusual vaginal discharge (such as change in color, odor, or amount of vaginal discharge) ? NO Foul smelling or unusual vaginal discharge AND any temperature elevation ? NO Not fully alert 5 minutes after seizure has stopped. ? NO Severe headache unrelieved with nonprescription medication ? NO Requesting information on nutrition and weight management ? NO No urination for 12 or more hours ? NO New, painful cord-like swelling in calf or thigh of the leg; cord-like swelling may feel warm or look red or discolored. ? NO New or worsening one-sided leg swelling with pain that may be described as achy; pain may worsen with standing or walking. ? NO Continued or worsening swelling of hands, legs, ankles or incisions lasting more than one week after delivery. ? NO Continued swelling of hands, legs, ankles or incisions for up to a week after delivery ? NO Visible, swollen veins associated with feelings of heaviness, tiredness, burning or aching in the legs and possible mild swelling of the ankles ? NO Any temperature elevation in an immunocompromised patient with a temperature of 100.5 F (38.0 C) or higher ? NO Episiotomy or perineal swelling/discomfort ? NO Hemorrhoids with associated burning or rectal itching ? NO Known seizure disorder AND had a seizure more than 6 hours ago ? NO Physician Instructions: Care Advice: Call provider if symptoms continue, worsen, or new symptoms develop. CAUTIONS documented in this encounter Plan of Treatment Not on filedocumented as of this encounter Visit Diagnoses Not on filedocumented in this encounter Additional Health Concerns Assessment Noted Time PHQ-9 Depression Total Score: 0 08/21/2016 7:15 AM CDT documented as of this encounter Care Teams Automotive Specialty Technician Relationship Specialty Start Date End Date Sarah Montgomery PA-C PCP - General Family Practice 10/21/11 [address] [place] [address] documented as of this encounter
--- OUTSIDE RECORDS SUMMARY | 2022-01-03 08:24 | XMS_ITS | Encounter Summary ---
:1985 Author Organization [place] Address [address] [place] [address] Care Team Providers Name Role Phone Sarah Montgomery PA-C Primary Care Provider [phone] Reason for Visit Reason Onset Date Comments Medication Question 12/18/2015 herpes in early preg adalberto Encounter Details Date Type Department Care Team Description [facility] [place] (herpes in early [address] ) [place] [address] [id number] Social History Tobacco Use Types Packs/Day Years [...] this encounter Miscellaneous Notes Telephone Encounter - Christine Colunga RN - 12/19/2015 2:13 PM CDT LMTRC and schedule a lab only appt and rx was sent in Christine Colunga RN, BSN Telephone Encounter - Nadiya Bautista DO - 12/19/2015 1:56 PM CDT Please have her come in for lab work I have ordered Also I called in prescription to treat herpes, valtrex which is safe in . Dr. Nadiya Bautista DO Obstetrics and Gynecology [facility] [place] Telephone Encounter - Christine Colunga RN - 12/18/2015 2:05 PM CDT Pt calling stating she noticed a sore on the outside of her vaginal area the other day and it is sore. She is about 9 weeks with a history of genital herpes. She has not had an outbreak since she was diagnosed. Please advise what she should take in early Christine Colunga RN, BSN documented in this encounter Plan of Treatment Not on filedocumented as of this encounter Results (ABNORMAL) Herpes Simplex Virus 1 and 2 IgG (12/24/2015 9:28 AM CDT) P athologist Signature Herpes Simplex 1.7 (H) 0.0 - 0.8 [facility] Virus Type 1 AI [place] [facility] Comment: Positive. ??IgG antibody to HSV-1 detect ed. Antibody index (AI) values reflect qual itative changes in antibody concentration that cannot be directly a ssociated with clinical condition or disease state. Herpes Simplex <0.2 0.0 - 0.8 AI [place] [facility] Virus Type 2 IgG No HSV-2 IgG antibodies detected. [facility] Antibody index (AI) values reflect qualitative changes in a [facility] concentration that cannot be directly associated with clinical condition or disease state. Specimen Anatomical Collection Method Collection Time Receive d Time (Source) Location / / Volume Laterality Blood specimen 12/24/2015 9:28 AM 016 9:33 (specimen) CDT AM CDT Nadiya Delucas DO LAB - BLOOD ORDERABLES Performing Organization Address City/[facility]/ZIP Code Phon e Number [facility] [address] [place] [address] [facility] HSV IgM antibody (12/24/2015 9:28 AM CDT) P athologist Signature Herpes Simplex 0.71 0.00 - [facility] Virus IgM 0.89 Index [place] [facility] Antibody Value [facility] Comment: No detectable antibody. A negative test result does not rule ou t a primary or reactivated infection. Specimen Anatomical Collection Method Collection Time Receive d Time (Source) Location / / Volume Laterality Blood specimen 12/24/2015 9:28 AM 016 9:33 (specimen) CDT AM CDT Nadiya Bautista DO LAB - BLOOD ORDERABLES Performing Organization Address City/[facility]/ZIP Code Phon e Number [facility] [address] [place] [address] [facility] documented in this encounter Visit Diagnoses Diagnosis HSV (herpes simplex virus) infection - P rimary Herpes simplex without mention of compli cation documented in this encounter Additional Health Concerns Assessment Noted Time PHQ-9 Depression Total Score: 0 09/07/2015 7:16 AM CDT documented as of this encounter Care Teams Presentation Designer Relationship Specialty Start Date End Date Ronaldo-Sarah Doshi PA-C PCP - General Family Practice 10/21/11 [address] [place] [address] documented as of this encounter
--- OUTSIDE RECORDS SUMMARY | 2022-01-03 08:24 | XMS_ITS | Encounter Summary ---
:1985 Author Organization [place] Address [address] [facility] [place] [address] Care Team Providers Name Role Phone Sarah Montgomery PA-C Primary Care Provider [phone] Encounter Details Date Type Department Care Team Description 11/17/2015 Telephone [facility] Advisors January Nayak, RN [address] [place] [address] Social History Tobacco Use Types Packs/Day [...] encounter Miscellaneous Notes Telephone Encounter - January Nayak RN - 11/17/2015 8:10 AM CDT Triage Addendum [id number] Presenting Problem: 6 weeks , 1st , and but no due date yet , have not been to visit yet with Dr Bautista for OB . Having cramping all week without vaginal bleeding. Discuss with MERLENE Michel for 2nd opinion and because she has not been seen by OB yet , advised she go into be seen . No appointments left at [facility] , Called back Patient to advise going into be seen at ER . Triage Note: Guideline Title: : Spontaneous Termination, Less Than 20 Weeks ; : Spontaneous Termination, Less Than 20 Weeks Recommended Disposition: Call Provider within 8 Hours Original Inclination: Did not know what to do Override Disposition: See ED Immediately Intended Action: Patient does not know Physician Contacted: No Lower abdominal, pelvic or back pain for 4 hours or more ? YES Passing tissue from the vagina ? NO Moderate vaginal bleeding ? NO Vaginal bleeding AND greater than 20 weeks gestation ? NO Experiencing contractions AND 20-37 weeks gestation ? NO Continuous mild vaginal bleeding ? NO Abdominal pain AND greater than 20 weeks gestation ? NO New or worsening signs and symptoms that may indicate shock ? NO More than 37 weeks gestation AND contractions ? NO Prior ectopic AND abdominal cramping or continuous mild vaginal bleeding ? NO IUD in place AND vaginal bleeding or abdominal cramping ? NO Recent positive test or menses late AND new onset of pain on top or back of shoulders ? NO Unbearable abdominal, pelvic or back pain ? NO Lower abdominal, pelvic or back pain with any bleeding ? NO Foul smelling or unusual vaginal discharge (such as change in color, odor, or amount of vaginal discharge) ? NO Cerclage (cervix sutured closed) in place AND any vaginal bleeding or fluid ? NO Heavy vaginal bleeding (soaking 1 pad every hour for 2 hours or more) ? NO Continuous bright red vaginal bleeding for more than 15 minutes (more than spotting) ? NO Persistent dizziness OR lightheadedness that does not resolve within ten minutes ? NO Physician Instructions: Care Advice: Call provider if symptoms worsen or new symptoms develop. Call EMS 911 if signs and symptoms of shock develop (such as unable to stand due to faintness, dizziness, or lightheadedness new onset of confusion slow to respond or difficult to awaken skin is pale, mcmahon, cool, or moist to touch severe weakness loss of consciousness). CALL EMS 911 if either of these occur: increased bright red vaginal bleeding or continuous (without relaxation) abdominal pain. SYMPTOM / CONDITION MANAGEMENT Moderate daily activities until evaluated by provider. documented in this encounter Plan of Treatment Not on filedocumented as of this encounter Visit Diagnoses Not on filedocumented in this encounter Additional Health Concerns Assessment Noted Time PHQ-9 Depression Total Score: 0 09/07/2015 7:16 AM CDT documented as of this encounter Care Teams Supervisor Coin Machine Relationship Specialty Start Date End Date Sarah Montgomery PA-C PCP - General Family Practice 10/21/11 [address] [place] [address] documented as of this encounter
--- OUTSIDE RECORDS SUMMARY | 2022-01-03 08:24 | XMS_ITS | Encounter Summary ---
:1985 Author Organization [place] Address [address] [place] [address] Care Team Providers Name Role Phone Sarah Montgomery PA-C Primary Care Provider [phone] Reason for Visit Reason Comments Abdominal Pain 3 days/ tender to touch/ gerri d to pass urine/ not sure of last BM-took laxative yesterday. Period d ue around 09/11. Encounter Details Date Type Department Care Team Description 09/06/2015 Office Visit [facility] Marie Vuong Abdomina l pain, generalized (Primary Dx); Clinic [facility] SE[facility] Quinones Constipation, unspecified constipation t ype [address] [place] [address] [phone] Social History Tobacco Use Types Packs/Day Years [...] Sign Reading Time Taken Comments Blood Pressure 118/70 09/06/2015 2:37 PM CDT Pulse 86 09/06/2015 2:37 PM CDT Temperature 36.7 ??C (98.1 ??F) 09/06/2015 2:37 PM CDT Respiratory Rate 16 09/06/2015 2:37 PM CDT Oxygen Saturation 99% 09/06/2015 2:37 PM CDT Inhaled Oxygen Concentration - - Weight 69.4 kg (153 lb) 09/06/2015 2:37 PM CDT Height 167.6 cm (5' 6) 09/06/2015 2:37 PM CDT Body Mass Index 24.69 09/06/2015 2:37 PM CDT documented in this encounter Patient Instructions Patient InstructionsMarie Vuong NP - 09/06/2015 2:50 PM CDT miralax daily, stool softener as needed Marie Vuong CROCHET BEADER documented in this encounter Progress Notes Marie Vuong NP - 09/06/2015 2:40 PM CDT SUBJECTIVE: Rhonda Tamayo is a 29 year old female who presents to clinic today for the following health issues: Abdominal Pain ?? Duration: 3 DAYS ?? Description (location/character/radiation): [facility] Associated flank pain: None ?? Intensity: moderate ?? Accompanying signs and symptoms: Fever/Chills: no Gas/Bloating: YES Nausea/vomitting: no Diarrhea: no Dysuria or Hematuria: no ?? History (previous similar pain/trauma/previous testing): na ?? Precipitating or alleviating factors: Pain worse with eating/BM/urination: na Pain relieved by BM: no ?? Therapies tried and outcome: Miralax and suppositories last night, no results ?? LMP: 08/12/15 Patient Active Problem List Diagnosis ??? CARDIOVASCULAR SCREENING; LDL GOAL LESS THAN 160 ??? Papanicolaou smear of cervix with low grade squamous intraepithelial lesion (LGSIL) ??? HSV (herpes simplex virus) infection ??? Encounter for counseling ??? Depression with anxiety ??? Anxiety ??? Vitamin D deficiency Past Surgical History Procedure Laterality Date ??? No history of surgery History Substance Use Topics ??? Smoking status: Former Smoker ??? Smokeless tobacco: Never Used Comment: quit smoking 2months ago ??? Alcohol Use: Yes Comment: occasionally - weekends Family History Problem Relation Age of Onset ??? Heart Disease Father [place] at age 42 ??? Depression Father ??? Cancer Maternal Grandmother cervical and uterine ??? Breast Cancer Maternal Grandmother dx at age 62 ??? Diabetes Maternal Grandfather ??? Diabetes Paternal Grandfather ??? Cancer - colorectal No family hx of No current outpatient prescriptions on file. BP Readings from Last 3 Encounters: 09/06/15 118/70 05/24/15 120/86 11/21/14 120/60 Wt Readings from Last 3 Encounters: 09/06/15 153 lb (69.4 kg) 05/24/15 145 lb (65.772 kg) 11/21/14 146 lb 1.6 oz (66.271 kg) ROS: C: NEGATIVE for fever, chills, change in weight E/M: NEGATIVE for ear, mouth and throat problems R: NEGATIVE for significant cough or SOB CV: NEGATIVE for chest pain, palpitations or peripheral edema GI: NEGATIVE for diarrhea, heartburn or reflux, nausea and vomiting : normal menstrual cycles OBJECTIVE: BP 118/70 mmHg Pulse 86 Temp(Src) 98.1 ??F (36.7 ??C) (Oral) Resp 16 Ht 5' 6 (1.676 m) Wt153 lb (69.4 kg) BMI 24.71 kg/m2 SpO2 99% LMP 08/12/2015 (Exact Date) Body mass index is 24.71 kg/(m^2). GENERAL: healthy, alert and no distress ABDOMEN: soft, mild suprapubic abd tenderness, no hepatosplenomegaly, no masses and bowel sounds normal BACK: no CVA tenderness, no paralumbar tenderness ASSESSMENT/PLAN: ICD-10-CM 1. Abdominal pain, generalized R10.84 UA reflex to Microscopic and Culture 2. Constipation, unspecified constipation type K59.00 Patient Instructions miralax daily, stool softener as needed Marie Vuong NP [facility] documented in this encounter Nursing Notes Veronica Morgan LPN - 09/06/2015 2:39 PM CDT Chief Complaint Patient presents with ??? Abdominal Pain 3 days/ tender to touch/ hard to pass urine/ not sure of last BM-took laxative yesterday. Period due around 09/11. Initial BP 118/70 mmHg Pulse 86 Temp(Src) 98.1 ??F (36.7 ??C) (Oral) Resp 16 Ht 5' 6 (1.676m) Wt 153 lb (69.4 kg) BMI 24.71 kg/m2 SpO2 99% LMP 08/12/2015 (Exact Date) Estimated body mass index is 24.71 kg/(m^2) as calculated from the following: Height as of this encounter: 5' 6 (1.676 m). Weight as of this encounter: 153 lb (69.4 kg). BP completed using cuff size: large documented in this encounter Plan of Treatment Not on filedocumented as of this encounter Procedures Procedure Name Priority Date/Time Associated Diagnosis Comme nts UA MACROSCOPIC WITH Routine 09/06/2015 2:54 PM Abdominal pain, Results for this REFLEX TO CDT generalized procedure are i n MICROSCOPIC AND the results CULTURE section. documented in this encounter Results UA reflex to Microscopic and Culture (09/06/2015 2:54 PM CDT) [facility] Method Time Signature Color Urine Yellow [facility] Appearance Urine Clear [facility] Glucose Urine Negative NEG mg/dL [facility] Bilirubin Urine Negative NEG [facility] Ketones Urine Negative NEG mg/dL [facility] Specific [place] 1.015 1.003 - [place] Urine 1.035 [facility] Blood Urine Negative NEG [facility] pH Urine 7.0 5.0 - 7.0 [place] pH [facility] Protein Albumin Negative NEG mg/dL [place] Urine [facility] Urobilinogen 0.2 0.2 - 1.0 [place] Urine EU/dL [facility] Nitrite Urine Negative NEG [facility] Leukocyte Negative NEG [place] Esterase Urine [facility] Source Midstream [place] Urine [facility] Specimen Anatomical Collection Method Collection Time Receive d Time (Source) Location / / Volume Laterality Urine specimen 09/06/2015 2:54 PM 016 2:59 (specimen) CDT PM CDT Marie Vuong [facility] - URINE ORDERABLES Performing Organization Address City/State/ZIP Code Phon e Number [facility] [address] [place], [place] [address] [address] documented in this encounter Visit Diagnoses Diagnosis Abdominal pain, generalized - Primary Constipation, unspecified constipation t ype documented in this encounter Additional Health Concerns Assessment Noted Time PHQ-9 Depression Total Score: 0 09/07/2015 7:16 AM CDT documented as of this encounter Care Teams Corporate Quality Engineer Relationship Specialty Start Date End Date Sarah Montgomery PA-C PCP - General Family Practice 10/21/11 [address] [place] [address] documented as of this encounter
--- OUTSIDE RECORDS SUMMARY | 2022-01-03 08:24 | XMS_ITS | Encounter Summary ---
:1985 Author Organization [place] Address [address] [place] [address] Care Team Providers Name Role Phone Sarah Montgomery PA-C Primary Care Provider [phone] Encounter Details Date Type Department Care Team Description 11/22/2015 Orders Only [facility] [place] rine cramping; [facility] Missed menses [address] [place] [address] Social History Tobacco Use Types Packs/Day Years [...] Procedure Name Priority Date/Time Associated Comments Diagnosis HCG QUANTITATIVE Routine 11/22/2015 8:20 Uterine crampi ng Results for this AM CDT Missed menses procedure are in the results section. documented in this encounter Results HCG quantitative (11/22/2015 8:20 AM CDT) [facility] Time Signature HCG Quantitative 11,668 IU/L [facility] Comment: Non- ?0 - 5 , weeks from LMP: ??1 - 10 weeks ? 64 - 151,000 IU/L 11 - 15 weeks 11,800 - 152,000 IU/L 16 - 22 weeks ??9,380 - 61,400 IU/L 23 - 40 weeks ??1,740 - 98,600 IU/L Specimen run with a dilution Specimen Anatomical Collection Method Collection Time Receive d Time (Source) Location / / Volume Laterality Blood specimen 11/22/2015 8:20 AM 016 8:21 (specimen) CDT AM CDT Derick Robles MD LAB - BLOOD ORDERABLES Performing Organization Address City/State/ZIP Code Phon e Number M [facility] [address] [address] [facility] [address] [phone] documented in this encounter Visit Diagnoses Diagnosis Uterine cramping Missed menses Absence of menstruation documented in this encounter Additional Health Concerns Assessment Noted Time PHQ-9 Depression Total Score: 0 09/07/2015 7:16 AM CDT documented as of this encounter Care Teams Business Objects Report Developer Relationship Specialty Start Date End Date Sarah Montgomery PA-C PCP - General Family Practice 10/21/11 [address] [place] [address] documented as of this encounter
--- OUTSIDE RECORDS SUMMARY | 2022-01-03 08:24 | XMS_ITS | Encounter Summary ---
:1985 Author Organization [place] Address [address] [place] [address]. [place] [address] Care Team Providers Name Role Phone Sarah Montgomery PA-C Primary Care Provider [phone] Reason for Visit Reason Comments Complications cramping, 6 weeks Encounter Details Date Type Department Care Team Description 11/20/2015 Office Visit [facility] Derick Robles Uterine c ramping (Primary Dx); Clinic Donald Sprague MD Missed menses; [place] [address] [facility] Slow transit [address] [place] [phone] Social History Tobacco Use Types Packs/Day Years [...] Sign Reading Time Taken Comments Blood Pressure 109/73 11/20/2015 8:41 AM CDT Pulse 83 11/20/2015 8:41 AM CDT Temperature 36.6 ??C (97.8 ??F) 11/20/2015 8:41 AM CDT Respiratory Rate - - Oxygen Saturation - - Inhaled Oxygen Concentration - - Weight 68 kg (150 lb) 11/20/2015 8:41 AM CDT Height - - Body Mass Index 24.21 09/20/2015 9:21 AM CDT documented in this encounter Progress Notes Derick Robles MD - 11/19/2015 9:32 AM CDT HPI SUBJECTIVE: Rhonda Tamayo is a 30 year old female who presents to clinic today for the following health issues: Recently aprox 6 weeks, started feeling mild cramping intermittently 4- 5 days ago worse at night. Postive 8 days ago. LMP approx 10/12/15. 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 Cramping is intermittent, no vaginal bleeding. Started PNV. Some nausea without vomiting. Peeing more frequently, but no hematuria, dysuria. Unplanned but desired . Review of Systems Constitutional: Negative. Respiratory: Negative. Cardiovascular: Negative. Gastrointestinal: Positive for nausea and abdominal pain. Negative for vomiting. Genitourinary: Positive for frequency. Negative for dysuria and urgency. Musculoskeletal: Positive for back pain. Physical Exam Constitutional: She is oriented to person, place, and time and well-developed, well-nourished, and in no distress. Eyes: Conjunctivae and EOM are normal. Cardiovascular: Normal rate, regular rhythm and normal heart sounds. Pulmonary/Chest: Effort normal and breath sounds normal. Abdominal: Soft. Bowel sounds are normal. There is no tenderness. There is no rebound and no guarding. Musculoskeletal: She exhibits no edema. Neurological: She is alert and oriented to person, place, and time. Skin: Skin is warm and dry. Vitals reviewed. (N94.89) Uterine cramping (primary encounter diagnosis) Comment: w/o bleeding is less likely to be misacarriage, will do serial quant, consider US if not improving Plan: *UA reflex to Microscopic, HCG quantitative (N92.6) Missed menses Comment: verifying, has appt December 10 Plan: Beta HCG qual IFA urine (K59.01) Slow transit constipation Comment: Plan: miralax or psylium OK RTC in 1w Derick Robles MD documented in this encounter Nursing Notes Grady Blanco CMA - 11/20/2015 8:42 AM CDT Chief Complaint Patient presents with ??? Complications cramping, 6 weeks Initial BP 109/73 mmHg Pulse 83 Temp(Src) 97.8 ??F (36.6 ??C) (Oral) Wt 150 lb (68.04 kg) Estimated body mass index is 24.22 kg/(m^2) as calculated from the following: Height as of 16: 5' 6 (1.676 m). Weight as of this encounter: 150 lb (68.04 kg). BP completed using cuff size: regular.Grady Stone MA documented in this encounter Plan of Treatment Not on filedocumented as of this encounter Procedures Procedure Name Priority Date/Time Associated Comments Diagnosis HCG QUANTITATIVE Routine 11/20/2015 9:05 AM Uterine cramping R esults for this CDT procedure are i n the results section. BETA HCG QUALITATIVE Routine 11/20/2015 8:52 AM Missed menses Results for this IFA URINE CDT procedure are i n the results section. UA MACROSCOPIC WITH Routine 11/20/2015 8:52 AM Uterine crampin g Results for this REFLEX TO MICRO CDT procedure ar e in the results section. documented in this encounter Results HCG quantitative (11/22/2015 8:20 AM CDT) Analysis Performed At Patho logist Time Signature HCG Quantitative 11,668 IU/L [facility] Comment: Non- ?0 - 5 , [...] Address City/State/ZIP Code Phon e Number M [facility] [address] [place], [place] [address] [facility] [address] [place], [place] [address] [address] [phone] HCG quantitative (11/20/2015 9:05 AM CDT) P athologist Signature HCG Quantitative 8,682 IU/L [facility] Comment: Non- ?0 - 5 , weeks from LMP: ??1 - 10 weeks ? 64 - 151,000 IU/L 11 - 15 weeks 11,800 - 152,000 IU/L 16 - 22 weeks ??9,380 - 61,400 IU/L 23 - 40 weeks ??1,740 - 98,600 IU/L Specimen Anatomical Collection Method Collection Time Receive d Time (Source) Location / / Volume Laterality Blood specimen 11/20/2015 9:05 AM 016 9:10 (specimen) CDT AM CDT Derick Robles MD LAB - BLOOD ORDERABLES Performing Organization Address City/[facility]/ZIP [facility] Phon e Number M [facility] [address] [phone] [facility] [address] [phone], [facility] [phone] *UA reflex to Microscopic (11/20/2015 8:52 AM CDT) Patholo gist Method Time Signature Color Urine Yellow [facility] Appearance Urine Clear [facility] Glucose Urine Negative NEG mg/dL [facility] Bilirubin Urine Negative NEG [facility] Ketones Urine Negative NEG mg/dL [facility] Specific [place] <=1.005 1.003 - [place] Urine 1.035 [facility] Blood Urine Negative NEG [facility] pH Urine 5.0 5.0 - 7.0 [place] pH [facility] Protein Albumin Negative NEG mg/dL [place] Urine [facility] Urobilinogen 0.2 0.2 - 1.0 [place] Urine EU/dL [facility] Nitrite Urine Negative NEG [facility] Leukocyte Negative NEG [place] Esterase Urine [facility] Source Midstream [place] Urine [facility] Specimen Anatomical Collection Method Collection Time Receive d Time (Source) Location / / Volume Laterality Urine specimen 11/20/2015 8:52 AM 016 8:58 (specimen) CDT AM CDT Derick Robles MD LAB - URINE ORDERABLES Performing Organization Address City/[facility]/ZIP Code Phon e Number [address] [phone] (ABNORMAL) Beta HCG qual IFA urine (11/20/2015 8:52 AM CDT) [facility] gist Method Time Signature Beta HCG Qual Positive (A) NEG [place] IFA Urine [facility] Specimen Anatomical Collection Method Collection Time Receive d Time (Source) Location / / Volume Laterality Urine specimen 11/20/2015 8:52 AM 016 8:58 (specimen) CDT AM CDT Derick Robles MD LAB - URINE ORDERABLES Performing Organization Address City/[facility] Phon e Number [address] [address] documented in this encounter Visit Diagnoses Diagnosis Uterine cramping - Primary Missed menses Absence of menstruation Slow transit constipation documented in this encounter Additional Health Concerns Assessment Noted Time PHQ-9 Depression Total Score: 0 09/07/2015 7:16 AM CDT documented as of this encounter Care Teams Talent Acquisition Program Manager Relationship Specialty Start Date End Date Ronaldo-Sarah Doshi PA-C PCP - General Family Practice 10/21/11 [address] [place] [address] documented as of this encounter
--- OUTSIDE RECORDS SUMMARY | 2022-01-03 08:24 | XMS_ITS | Encounter Summary ---
:1985 Author Organization [place] Address [address] [place] [address] Care Team Providers Name Role Phone Sarah Montgomery PA-C Primary Care Provider [phone] Encounter Details Date Type Department Care Team Description 12/20/2015 Radiant Appointment [facility] [address] [place], [place] [phone] Social History Tobacco Use Types Packs/Day Years [...] Date/Time Associated Diagnosis Comme nts US OB < 14 WEEKS Routine 12/20/2015 10:49 AM First R esults for this SINGLE-TRANSABDOMIN CDT procedur e are in AL the results section. documented in this encounter Results US OB < 14 Weeks Single (12/20/2015 10:49 AM CDT) Anatomical Region Laterality Modality Abdomen/Pelvis Ultrasound Specimen (Source) Anatomical Location Collection Method / Collectio n Time Received Time / Laterality Volume Narrative 12/21/2015 3:43 PM CDT Order #: [id number] Study Notes? Karley Damico on 12/20/2015 10:51 AM ?? [facility] [address] [place] [address] ULTRASOUND - EARLY OB (0-11 WEEKS) Referring Provider: Nadiya Bautista Clinic: [facility] INDICATIONS FOR ULTRASOUND: OB History: ?? Present Conditions: Initial S&D (0-17 we eks) CLINICAL INFORMATION LMP: 12 Oct 2015 - sure EDC: 18 Jul 2016 ? EGA: 9w6d ? MEASUREMENTS Gest Sac: vis? 4.2 x 3.1 x 3.4 cm? Position:nl? Contour:smth/reg ?? Yolk sac: 2.9 mm wnl CRL: 2.97 cm.? EGA:?? 9w 6d? U/S EDC: 18 Jul 2016 correspond Cardiac Activity:Yes? FHR: 175 bp m reg Rt Ov: Nv Lt Ov: 4.8 x 2.7 x 3.1 cm? Wnl Cul de sac: no free fluid Early obstetrical ultrasound using realt mike transabdominal scanning Bryant viable IUP; ??corresponding menstrual and sonographic dates SWETHA OBREGON M.D. Nadiya Bautista DO IMG US ORDERABLES documented in this encounter Visit Diagnoses Diagnosis First Supervision of normal first documented in this encounter Additional Health Concerns Assessment Noted Time PHQ-9 Depression Total Score: 0 09/07/2015 7:16 AM CDT documented as of this encounter Care Teams Manager Administration Relationship Specialty Start Date End Date Sarah Montgomery PA-C PCP - General Family Practice 10/21/11 [address] [place] [address] documented as of this encounter
--- OUTSIDE RECORDS SUMMARY | 2022-01-03 08:24 | XMS_ITS | Encounter Summary ---
:1985 Author Organization [place] Address [address] [place] [address] Care Team Providers Name Role Phone Sarah Montgomery PA-C Primary Care Provider [phone] Encounter Details Date Type Department Care Team Description 12/24/2015 Orders Only [facility] HSV (herpes simplex virus) [facility] infection [address] [place] [address] Social History Tobacco Use Types Packs/Day Years [...] Name Priority Date/Time Associated Diagnosis Comme nts HERPES SIMPLEX Routine 12/24/2015 9:28 AM HSV (herpes simplex Results for this VIRUS TYPE 1 AND 2 CDT virus) infection proce dure are in IGG the results section. HSV IGM ANTIBODY Routine 12/24/2015 9:28 AM HSV (herpes simple x Results for this CDT virus) infection procedure a re in the results section. documented in this encounter Results (ABNORMAL) Herpes Simplex Virus 1 and 2 IgG (12/24/2015 9:28 AM CDT) athologist Signature Herpes Simplex 1.7 (H) 0.0 - 0.8 [facility] Virus Type 1 AI [facility] IgG [facility]ENTER [facility] Comment: Positive. ??IgG antibody to HSV-1 detect ed. Antibody index (AI) values reflect qual itative changes in antibody concentration that cannot be directly a ssociated with clinical condition or disease state. Herpes Simplex <0.2 0.0 - 0.8 AI [facility] [place] Virus Type 2 IgG No HSV-2 IgG antibodies detected. [facility] Antibody index (AI) values reflect qualitative changes in a ntibody CAMPUS concentration that cannot be directly associated with clinical condition or disease state. Specimen Anatomical Collection Method Collection Time Receive d Time (Source) Location / / Volume Laterality Blood specimen 12/24/2015 9:28 AM 016 9:33 (specimen) CDT AM CDT Nadiya Bautista DO LAB - BLOOD ORDERABLES Performing Organization Address City/[facility]/ZIP Code Phon e Number [address] HSV IgM antibody (12/24/2015 9:28 AM CDT) athologist Signature Herpes Simplex 0.71 0.00 - [facility] Virus IgM 0.89 Index [place] [facility] Antibody Value [facility] Comment: No detectable antibody. A negative test result does not rule ou t a primary or reactivated infection. Specimen Anatomical Collection Method Collection Time Receive d Time (Source) Location / / Volume Laterality Blood specimen 12/24/2015 9:28 AM 016 9:33 (specimen) CDT AM CDT Nadiya Bautista DO LAB - BLOOD ORDERABLES Performing Organization Address City/[facility] Code Phon e Number [address] documented in this encounter Visit Diagnoses Diagnosis HSV (herpes simplex virus) infection Herpes simplex without mention of compli cation documented in this encounter Additional Health Concerns Assessment Noted Time PHQ-9 Depression Total Score: 0 09/07/2015 7:16 AM CDT documented as of this encounter Care Teams Corporate Development Manager Relationship Specialty Start Date End Date Ronaldo-Sarah Doshi PA-C PCP - General Family Practice 10/21/11 [address] [place] [address] documented as of this encounter
--- OUTSIDE RECORDS SUMMARY | 2022-01-03 08:24 | XMS_ITS | Encounter Summary ---
:1985 Author Organization [place] Address [facility] [place] [address] Care Team Providers Name Role Phone Sarah Montgomery PA-C Primary Care Provider [phone] Reason for Visit Reason Comments Care Encounter Details Date Type Department Care Team Description 01/14/2016 Office [facility] Nadiya Bautista care in Visit Clinic [facility] first trimester [id number] [place] [address] (Primary Dx) [facility] [address] [facility] [phone] [place] [address] Social History Tobacco Use Types Packs/Day [...] Sign Reading Time Taken Comments Blood Pressure 116/64 01/14/2016 9:18 AM CDT Pulse - - Temperature - - Respiratory Rate - - Oxygen Saturation - - Inhaled Oxygen Concentration - - Weight 67.8 kg (149 lb 6.4 oz) 01/14/2016 9:18 AM CDT Height - - Body Mass Index 24.11 12/11/2015 8:42 AM CDT documented in this encounter Patient Instructions Patient InstructionsNadiya Bautista DO - 01/14/2016 9:40 AM CDT Reviewed nausea protocol My nausea, vomiting recommendation for early : Vitamin B6 25 mg four times daily Unisom 25 mg tablet. Take 1/2 tablet up to three times daily. May only be able to use at night because it makes you tired. Walter: Walter capsules (250 mg, available over the counter) by mouth up to 3 times daily Walter ammy, walter snaps, walter tea. Snack by bedside (cracker, bread) before rising in morning Avoid hunger. Eat small meals frequently. Keep something in your stomach even if not hungry. Hunger makes nausea worse documented in this encounter Progress Notes Nadiya Bautista DO - 01/14/2016 9:29 AM CDT Rhonda Tamayo is a 30 year old @ 13w3d wks EGA with EDC 07/18/16 who presents to the clinic for an new ob visit. Estimated Date of Delivery: Jul 18, 2016 Reviewed nurse intake visit on previously Concerns: none Patient Active Problem List Diagnosis ??? CARDIOVASCULAR SCREENING; LDL GOAL LESS THAN 160 ??? Papanicolaou smear of cervix with low grade squamous intraepithelial lesion (LGSIL) ??? HSV (herpes simplex virus) infection ??? Anxiety ??? Vitamin D deficiency ??? Constipation, unspecified constipation type ??? Encounter for supervision of normal first , unspecified trimester [Z34.00] Past Medical History Diagnosis Date ??? abnormal pap 06/02, 09/2011 '09 HSIL, colp neg, '12:ELZBIETA I ??? Herpes valtrex Past Surgical History Procedure Laterality Date ??? No history of surgery Current Outpatient Prescriptions Medication Sig Dispense Refill ??? valACYclovir (VALTREX) 500 MG tablet Take 1 tablet (500 mg) by mouth 2 times daily 6 tablet 3 ??? Vit-Fe Fumarate-FA ( MULTIVITAMIN PLUS IRON) 27-0.8 MG TABS Take 1 tablet by mouth daily PERSONAL/SOCIAL HISTORY Social History Social History ??? Marital Status: Single Spouse Name: N/A ??? Number of Children: N/A ??? Years of Education: N/A Social History Main Topics ??? Smoking status: Former Smoker ??? Smokeless tobacco: Never Used Comment: quit smoking 2months ago ??? Alcohol Use: Yes Comment: occasionally - weekends ??? Drug Use: No ??? Sexual Activity: Partners: Male Control/ Protection: Condom Other Topics Concern ??? Parent/Sibling W/ Cabg, Mi Or Angioplasty Before 65f 55m? No Social History Narrative Single, lives with boyfriend. 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 Periods are regular. M: NEGATIVE for significant arthralgias or myalgia N: NEGATIVE for weakness, dizziness or paresthesias P: NEGATIVE for changes in mood or affect PHYSICAL EXAM: BP 116/64 mmHg Wt 149 lb 6.4 oz (67.767 kg) LMP 10/12/2015 ? No GENERAL: Pleasant female, alert, well groomed. SKIN: Warm and dry, without lesions or rashes HEAD: Symmetrical features. EYES: PERRLA, MOUTH: Buccal mucosa pink, moist without lesions. NECK: Thyroid without enlargement and nodules. Lymph nodes not palpable. LUNGS: Clear to auscultation. BREAST: Symmetrical. No dominant, fixed or suspicious masses are noted. No skin or nipple changes oraxillary nodes. Self exam is taught and encouraged. Nipples everted. HEART: RRR without murmur. ABDOMEN: Soft without masses , tenderness or organomegaly. No CVA tenderness. No scars noted.. FHT 155 MUSCULOSKELETAL: Full range of motion EXTREMITIES: No edema. No significant varicosities. GENITALIA: BUS WNL, no lesions noted VAGINA: [place], normal rugae and discharge normal and physiologic, CERVIX: smooth, without discharge or CMT and nulliparous os, firm/ closed 4 cm long. UTERUS: Anteverted, nontender 13 weeks in size. ADNEXA: Without masses or tenderness PELVIS: Adequate, Pelvis proven to -pelvis not tested. ICSI Routine Carfe Guideline ASSESSMENT/PLAN: Rhonda Tamayo is a 30 year old @ 13w3d wks EGA with EDC 07/18/16 who presents to the clinic for an new ob visit. 1) Intrauterine Nausea is better 2) heart tones 155 3) labs normal and pending 4) EDUCATION : RECOMMENDED WEIGHT GAIN: 25-35 lbs. Instructed on best evidence for: weight gain for her BMI for ; healthy diet and foods to avoid; exercise and activity during ;avoiding exposure to toxoplasmosis; and maintenance of a generally healthy lifestyle. Discussed the harms, benefits, side effects and alternative therapies for current prescribed and OTCmedications. 5) Ultrasound by jane 6) Return to clinic in 4 weeks 7) Counseled about screening tests (1st trimester screen and targeted anatomy scan and AFP and quad screen if first trimester screening not done) and invasive definitive testing (chorionic villus sampling and genetic amniocentesis). Call insurance about 1st trimester screen Dr. Nadiya Bautista DO ENVIRONMENTAL ANALYST [facility] documented in this encounter Nursing Notes Lupe White CMA - 01/14/2016 9:19 AM CDT Chief Complaint Patient presents with ??? Care Initial Wt 149 lb 6.4 oz (67.767 kg) LMP 10/12/2015 ? No Estimated body mass index is 24.13 kg/(m^2) as calculated from the following: Height as of 16: 5' 6 (1.676 m). Weight as of this encounter: 149 lb 6.4 oz (67.767 kg). Lupe White CMA Health Maintenance- Reviewed. documented in this encounter Miscellaneous Notes Addendum Note - Lupe White CMA - 01/14/2016 10:05 AM CDT Addended by: LUPE WHITE on: 01/14/2016 10:05 AM Modules accepted: Orders documented in this encounter Plan of Treatment Not on filedocumented as of this encounter Procedures Procedure Name Priority Date/Time Associated Comments Diagnosis NEISSERIA GONORRHOEAE Routine 01/14/2016 10:28 care i n Results for this PCR AM CDT first trimester procedure ar e in the results section. CHLAMYDIA TRACHOMATIS Routine 01/14/2016 10:28 care i n Results for this PCR AM CDT first trimester procedure ar e in the results section. documented in this encounter Results US OB > 14 Weeks Complete Single (02/18/2016 9:16 AM CDT) Anatomical Region Laterality Modality Abdomen/Pelvis Ultrasound Specimen (Source) Anatomical Location Collection Method / Collectio n Time Received Time / Laterality Volume Narrative 02/19/2016 10:33 AM CDT [facility] [address] [place] [address] ULTRASOUND - COMPLETE OB (18+) Referring Provider: Nadiya Bautista Clinic: [facility] INDICATIONS FOR ULTRASOUND: OB History: Present Conditions: Initial Survey (18-26 weeks) CLINICAL INFORMATION LMP: October 07 sure EDC: Jul 11 EGA: 18w3d Previous US: Yes Location: [place] EDC: Jul 11 correspond MEASUREMENTS BPD: 4.4cm [...] M.D. Nadiya Bautista DO IMG US ORDERABLES Neisseria gonorrhoeae PCR (01/14/2016 10:28 AM CDT) Component Value Ref Test Analysis Performed At [facility] Chartbeat Range Method Time Signature Specimen Cervix [facility] N Gonorrhea Negative NEG [facility] PCR Negative for N. gonorrhoeae rRNA by transcripti on mediated amplification. [facility] A negative result by transc ription mediated amplification does not preclude the [facility] presence of N. gonorrhoeae infection because re sults are dependent on proper BANK and adequate collection, absence of inhibitors, and suffici ent rRNA to be detected. Specimen Anatomical Collection Method Collection Time Receive d Time (Source) Location / / Volume Laterality Cervical swab 01/14/2016 10:01/14/2016 (specimen) AM CDT 10:33 AM CDT Nadiya Bautista DO LAB - MICRO GENERAL ORDERABL ES Performing Organization Address City/[facility]/ZIP Code Phon e Number [address] [address] Chlamydia trachomatis PCR (01/14/2016 10:28 AM CDT) Component Value Ref Test Analysis Performed At [facility] Method Time Signature Specimen [facility] Chlamydia Negative NEG [facility] Trachomatis Negative for C. trachomatis rRNA by ship unloader mediated amplification. [facility] PCR A negative result by transc ription mediated amplification does not preclude the [facility] presence of C. trachomatis infection because re sults are dependent on proper BANK and adequate collection, absence of inhibitors, and suffici ent rRNA to be detected. Specimen Anatomical Collection Method Collection Time Receive d Time (Source) Location / / Volume Laterality Cervical swab 01/14/2016 10:28 01/14/2016 (specimen) AM CDT 10:33 AM CDT Nadiya Bautista DO LAB - MICRO GENERAL ORDERABL ES Performing Organization Address City/[facility]/ZIP Code Phon e Number [address] [address] documented in this encounter Visit Diagnoses Diagnosis care in first trimester - Prima ry care in first trimester documented in this encounter Additional Health Concerns Assessment Noted Time PHQ-9 Depression Total Score: 0 09/07/2015 7:16 AM CDT documented as of this encounter Care Teams Study Coordinator Relationship Specialty Start Date End Date Sarah Montgomery PA-C PCP - General Family Practice 10/21/11 [address] [place] [address] documented as of this encounter
--- OUTSIDE RECORDS SUMMARY | 2022-01-03 08:24 | XMS_ITS | Encounter Summary ---
:1985 Author Organization [place] Address [address] [place] [address] Care Team Providers Name Role Phone Sarah Montgomery PA-C Primary Care Provider [phone] Reason for Visit Reason Comments Constipation Encounter Details Date Type Department Care Team Description 09/20/2015 Office Visit [facility] Karolina Carl al hemorrhoids Clinic Reshma Frankel MD (Primary Dx) [address] [facility] [id number] [place] [address] 55 [phone] [id number] [phone] Social History Tobacco Use Types Packs/Day Years [...] Sign Reading Time Taken Comments Blood Pressure 113/79 09/20/2015 9:21 AM CDT Pulse 80 09/20/2015 9:21 AM CDT Temperature 36.2 ??C (97.2 ??F) 09/20/2015 9:21 AM CDT Respiratory Rate - - Oxygen Saturation - - Inhaled Oxygen Concentration - - Weight 68.5 kg (151 lb) 09/20/2015 9:21 AM CDT Height 167.6 cm (5' 6) 09/20/2015 9:21 AM CDT Body Mass Index 24.37 09/20/2015 9:21 AM CDT documented in this encounter Patient Instructions Patient InstructionsKarolina Carl MD - 09/20/2015 9:42 AM CDT Images from the original note were not included. Treating Hemorrhoids: Self-Care Follow your doctor???s advice about caring for your hemorrhoids at home. Some treatments help relieve symptoms right away. Others involve making changes in your diet and exercise habits. These can helpease constipation and prevent hemorrhoid symptoms from coming back. Relieving Symptoms Your doctor may prescribe anti-inflammatory medication to help ease your symptoms. The following tips will also help relieve pain and swelling. ?? Take sitz baths.??Taking a sitz bath means sitting in a few inches of warm bath water. Soaking for 10 minutes twice a day can provide welcome relief from painful hemorrhoids. It can also help the area stay clean. ?? Develop good bowel habits.??Use the bathroom when you need to. Don???t ignore the urge to move your bowels. This can lead to constipation, hard stools, and straining. Also, don???t read while on thetoilet. Sit only as long as needed. Wipe gently with soft, unscented toilet tissue or baby wipes. ?? Use ice packs.??Placing an ice pack on a thrombosed external hemorrhoid can help relieve pain right away. It will also help reduce the blood clot. Use the ice for 15-20 minutes at a time. Keep a cloth between the ice and your skin to prevent skin damage. ?? Use other measures.??Laxatives and enemas can help ease constipation. But use them only on your doctor???s advice. For symptom relief, try using cotton pads soaked in witch leatha. These are available at most drugstores. Jjgm-ugz-xczweoe hemorrhoid ointments and petroleum jelly can also provide relief. Add Fiber to Your Diet Adding fiber to your diet can help relieve constipation by making stools softer and easier to pass. To increase your fiber intake, your doctor may recommend a bulking agent, such as psyllium. This is ahigh-fiber supplement available at most grocery stores and drugstores. Eating more fiber-rich foods will also help. There are two types of fiber: ?? Insoluble fiber??is the main ingredient in bulking agents. It???s also found in foods such as wheat bran, whole-grain breads, fresh fruits, and vegetables. ?? Soluble fiber??is found in foods such as oat bran. Although soluble fiber is good for you, it maynot ease constipation as much as foods high in insoluble fiber. Drink More Water Along with a high-fiber diet, drinking more water can help ease constipation. This is because insoluble fiber absorbs water, making stools soft and bulky. Be sure to drink plenty of water throughout the day. Drinking fruit juices, such as prune juice or apple juice, can also help prevent constipation. Get More Exercise Regular exercise aids digestion and helps prevent constipation. It???s also great for your health. So talk with your doctor about starting an exercise program. Low-impact activities, such as swimming or walking, are good places to start. Take it easy at first. And remember to drink plenty of water when you exercise. ?? [id number] The [employer]. [address] [place] [address]. All rights reserved. This information is not intended as a substitute for professional medical care. Always follow your healthcare professional's instructions. documented in this encounter Progress Notes Karolina Carl MD - 09/20/2015 9:19 AM CDT SUBJECTIVE: Rhonda Tamayo is a 29 year old female who presents to clinic today for the following health issues: Reports one month of rectal pain. Noted bright red blood on the toilet paper when wiping a month ago. Has not had any recurrence of rectal bleeding. As seen for generalized abdominal pain and diagnosed with constipation earlier this month. Had been taking Miralax but has since stopped. Says her bowels are moving regularly at this point, formed brown stool. Generalized abdominal pain has subsided. Notes rectal pain has improved at this point but she continues to have itching of her anus. This is worse overnight. Has tried rectal steroids and preparation H with little benefit. Problem list and histories reviewed & adjusted, as indicated. Additional history: none Patient Active Problem List Diagnosis ??? CARDIOVASCULAR SCREENING; LDL GOAL LESS THAN 160 ??? Papanicolaou smear of cervix with low grade squamous intraepithelial lesion (LGSIL) ??? HSV (herpes simplex virus) infection ??? Encounter for counseling ??? Depression with anxiety ??? Anxiety ??? Vitamin D deficiency ??? Constipation, unspecified constipation type Past Surgical History Procedure Laterality Date ??? No history of surgery History Substance Use Topics ??? Smoking status: Former Smoker ??? Smokeless tobacco: Never Used Comment: quit smoking 2months ago ??? Alcohol Use: Yes Comment: occasionally - weekends Family History Problem Relation Age of Onset ??? Heart Disease Father [place] at age 42 ??? Depression Father ??? Cancer Maternal Grandmother cervical and uterine ??? Breast Cancer Maternal Grandmother dx at age 62 ??? Diabetes Maternal Grandfather ??? Diabetes Paternal Grandfather ??? Cancer - colorectal No family hx of Current Outpatient Prescriptions Medication Sig Dispense Refill ??? hydrocortisone (ANUSOL-HC) 2.5 % rectal cream Place rectally 3 times daily as needed for hemorrhoids Use on backside three times daily as needed 30 g 2 ROS: Constitutional, HEENT, cardiovascular, pulmonary, gi and gu systems are negative, except as otherwise noted. OBJECTIVE: BP 113/79 mmHg Pulse 80 Temp(Src) 97.2 ??F (36.2 ??C) (Oral) Ht 5' 6 (1.676 m) Wt 151 lb (68.493 kg) BMI 24.38 kg/m2 LMP 08/12/2015 (Exact Date) ? No Body mass index is 24.38 kg/(m^2). GENERAL: healthy, alert and no distress RECTAL (female): normal sphincter tone, small external hemorrhoid at about 10:00, no anal fissures seen Diagnostic Test Results: none ASSESSMENT/PLAN: 1. External hemorrhoids - Suggested half Of MiraLAX daily, titrate to soft stool but not diarrhea - hydrocortisone (ANUSOL-HC) 2.5 % rectal cream; Place rectally 3 times daily as needed for hemorrhoids Use on backside three times daily as needed Dispense: 30 g; Refill: 2 Follow-up as needed for ongoing issues Karolina Carl MD [facility] documented in this encounter Nursing Notes Sushil Ford CMA - 09/20/2015 9:22 AM CDT Chief Complaint Patient presents with ??? Constipation Initial BP 113/79 mmHg Pulse 80 Temp(Src) 97.2 ??F (36.2 ??C) (Oral) Ht 5' 6 (1.676 m) Wt 151 lb (68.493 kg) BMI 24.38 kg/m2 LMP 08/12/2015 (Exact Date) ? No Estimated body mass index is 24.38 kg/(m^2) as calculated from the following: Height as of this encounter: 5' 6 (1.676 m). Weight as of this encounter: 151 lb (68.493 kg). BP completed using cuff size: regular Sushil Ford CMA documented in this encounter Plan of Treatment Not on filedocumented as of this encounter Visit Diagnoses Diagnosis External hemorrhoids - Primary External hemorrhoids without mention of complication documented in this encounter Additional Health Concerns Assessment Noted Time PHQ-9 Depression Total Score: 0 09/07/2015 7:16 AM CDT documented as of this encounter Care Teams Collective Bargaining Specialist Relationship Specialty Start Date End Date Sarah Montgomery PA-C PCP - General Family Practice 10/21/11 [address] [place] [address] documented as of this encounter
--- OUTSIDE RECORDS SUMMARY | 2022-01-03 08:24 | XMS_ITS | Encounter Summary ---
:1985 Author Organization [place] Address [address] [place] [address] Care Team Providers Name Role Phone Sarah Montgomery PA-C Primary Care Provider Reason for Visit Reason Comments Tachycardia Encounter Details Date Type Department Care Team Description 05/24/2015 Emergency [facility] [place] LaguerreCristofer noriega y Morris, Palpitations Emergency Dept [address] [facility] [place] [phone] [facility] [phone] [place], [place] [address] (Wo rk) Social History Tobacco Use Types [...] Sign Reading Time Taken Comments Blood Pressure 120/86 05/24/2015 6:56 PM STUDIO POTTER Pulse 96 05/24/2015 3:20 PM STUDIO POTTER Temperature 36.7 ??C (98 ??F) 05/24/2015 3:20 PM STUDIO POTTER Respiratory Rate 16 05/24/2015 7:02 PM STUDIO POTTER Oxygen Saturation 99% 05/24/2015 6:56 PM STUDIO POTTER Inhaled Oxygen Concentration - - Weight 65.8 kg (145 lb) 05/24/2015 3:20 PM STUDIO POTTER Height - - Body Mass Index 23.4 11/16/2014 8:39 AM CDT documented in this encounter Discharge Instructions Discharge InstructionsGary Laguerre MD - 05/24/2015 6:51 PM STUDIO POTTER Images from the original note were not included. Please make an appointment to follow up with your edge drummer following your Holter placement and return to the ED immediately if your symptoms worsen in any way. * Heart Palpitations Palpitations refers to the feeling that your heart is beating hard, fast or irregular. Some people describe it as pounding or skipped beats. Palpitations may occur in persons with heart disease, but can also occur in healthy persons. Your doctor does not believe that anything dangerous is causing your symptoms at this time. Heart-Related Causes: ?? Arrhythmia (a change from the heart's normal rhythm) ?? Disease of the heart valves Nfo-Uotym-Pvaikvo Causes: ?? Certain medicines (such as asthma inhalers and decongestants) ?? Some herbal supplements, energy drinks and pills, and weight loss pills ?? Illegal stimulant drugs (such as cocaine, crank, methamphetamine, PCP) ?? Caffeine, alcohol and tobacco ?? Medical conditions such as thyroid disease, anemia, anxiety and panic disorder Sometimes the cause cannot be found. Home Care: 1. Avoid excess caffeine, alcohol, tobacco and any stimulant drugs. 2. Tell your doctor about any prescription or eacf-rhi-gzmdyfr or herbal medicines you take. Follow Up with your doctor or as advised by our staff. Get Prompt Medical Attention if any of the following occur together with palpitations: ?? Weakness, dizziness, light-headed or fainting ?? Chest pain or shortness of breath ?? Rapid heart rate (over 120 beats per minute, at rest) ?? Palpitations that lasts over 20 minutes ?? Weakness of an arm or leg or one side of the face ?? Difficulty with speech or vision ?? [id number] [employer] [address] [place] [address], [place] [address]. All rights reserved. This information is not intended as a substitute for professional medical care. Always follow your healthcare professional's instructions. IO POTTER documented in this encounter ED Notes Cindy Garcia RN - 05/24/2015 6:31 PM CST Pt returned from xray. Continues to be symptom free. IO POTTER Gary Laguerre MD - 05/24/2015 5:19 PM CST History Chief Complaint: Palpitations HPI Rhonda Tamayo is a 29 year old female who presents to the emergency department today with palpitations. The patient reports that while she was driving around [id number] she had acute onset of palpitations, feeling her heart racing, lasting for 3 minutes and then spontaneously resolving. She notes this took her breath away. She notes she has had past anxiety attacks, and reports this was not likethat. She did not consciously count her heart rate while having these palpitations, but speculates it was around 100-150bpm. She does not drink a lot of caffeine, only having an occasional Mountain Dew. She has not recently had any caffeine. She notes occasionally feeling a jump in her heart beat. She denies any drug use. She notes no recent changes in medications. She notes a low risk for . Her mother notes concern this may be anxiety related, as the patient has had anxiety attacks in the past. The patient denies any chest pain, shortness of breath, activity or appetite changes, dysuria, frequency, urgency, frequency, or cough and cold symptoms. Cardiac Risk Factors: Sex: Female Tobacco: Negative Hypertension: Negative Diabetes: Negative Lipids: Negative Personal History: Negative Family History: Father, Heart failure Allergies: No Known Drug Allergies Medications: No daily medications. Past Medical History: HSV infection Vitamin D deficiency Depression with anxiety Pap smear of cervix with low grade squamous intraepithelial lesion (LGSIL) Past Surgical History: Surgical history reviewed. No pertinent surgical history. Family History: Father: ID at 42, Depression Social History: Presents with: Mother Marital Status: Single [1] Tobacco: Former Smoker, quit 2 months ago Alcohol: Positive Drug use: Negative Review of Systems Constitutional: Negative for fever, chills and appetite change. HENT: Negative for congestion. Respiratory: Negative for cough and shortness of breath. Cardiovascular: Positive for palpitations. Negative for chest pain. Genitourinary: Negative for dysuria, urgency and frequency. All other systems reviewed and are negative. Physical Exam First Vitals: BP: (!) 135/102 mmHg Pulse: 96 Temp: 98 ??F (36.7 ??C) Resp: 20 Weight: 65.772 kg (145 lb) SpO2: 100 % Physical Exam Nursing note and vitals reviewed Filed Vitals: 05/24/15 1520 05/24/15 1827 05/24/15 1856 05/24/15 1902 BP: 135/102 120/86 120/86 Pulse: 96 Temp: 98 ??F (36.7 ??C) TempSrc: Oral Resp: 20 20 16 Weight: 65.772 kg (145 lb) SpO2: 100% 100% 99% Constitutional: Oriented to person, place, and time. Well-developed and well- nourished. No distress. HENT: Head: Normocephalic, atraumatic. Mouth/Throat: Clear and moist. No exudate. Eyes: Conjunctivae and EOM are normal. PERRL B. No discharge or icterus. Neck: FROM intact, supple. No JVD. No tracheal deviation. No thyromegaly visible. Cardiovascular: RRR. No murmur. Pulmonary/Chest: Effort normal CTA B. No stridor or respiratory distress. No wheezes or rales. No tenderness to palpation. Abdominal: Soft. Bowel sounds are normal. No distension, tenderness, no guarding. Musculoskeletal: FROM. No edema or tenderness. Lymphadenopathy: No cervical adenopathy. Neurological: AOX3. No cranial nerve deficit. Normal muscle tone and coordination. Skin: Warm, dry, no rash or erythema, not diaphoretic. Psychiatric: Normal mood and affect. Patient's behavior is normal. Thought content normal. Emergency Department Course EC05/24/2015 1529 Indication: Cardiac Evaluation. Findings: Normal sinus rhythm. Normal ECG. No STEMI noted at 1533. Ventricular rate: 91 bpm WV interval: 134 ms QRS duration: 78 ms QT/QTc: 334/410 ms R-[place]: 64 ECG read at [address] Laguerre. Imaging: Radiographic findings were communicated with the patient and family who voiced understanding of the findings. Chest X-Ray. 2 Views: Negative Chest. Preliminary reading per radiology. Laboratory: CBC: WNL. (WBC 6.9, HGB 14.8, PLT 360) BMP: WNL. (Creatinine 0.72) TSH with free T4 reflex: 1.78 HCG Qualitative (urine): Negative. Emergency Department Course: Nursing notes and vitals reviewed. I performed an exam of the patient as documented above. The patient was placed on cardiac rehabilitation specialist and continuous pulse oximetry. An EKG was performed. The above imaging workup was performed. The above laboratory workup was performed. The patient was given aZio Patch Holter with instructions for continued monitoring. 1855- I updated the patient on her imaging and lab results. I discussed further plan of care, including plans for discharge. The patient is in agreement with plan. Findings and plan explained to the Patient and mother. Patient discharged home with instructions regarding supportive care and reasons to return. The importance of close follow-up was reviewed. Impression & Plan Medical Decision Making: Rhonda Tamayo is a 29 year old female who presents for evaluation of palpitations. Initial ECG shows NSR with normal intervals. A broad differential diagnosis was considered including SVT, Atrial fibrillation, ventricular arrhythmia, thyroid disease, acute electrolyte abnormality, drugs/medications, caffeine intake or other stimulants, medication side effect, anemia, heart disease, PE, etc. The workup and exam here in ED would indicate that supportive outpatient management is indicated. I doubt PE as patient has no SOB and is not at risk for PE and has no symptoms now. Doubt acute coronary syndrome given symptoms and exam. Will have them follow up with PMD following Holter placement an return to ED immediately with any worsening symptoms. Diagnosis: ICD-10-CM 1. Palpitations R00.2 Zio Patch Holter Disposition: Discharged. Scribe Disclosure: I, Malachi Ferrara, am serving as a scribe at 5:19 PM on 05/24/2015 to document services personally performed by Gary Laguerre MD, based on my observations and the provider's statements to me. [facility] EMERGENCY DEPARTMENT Gary Laguerre MD 05/25/15 8446 IO POTTER Rosalia Cordova, KELLIE - 05/24/2015 3:23 PM CST Pt here with c/o fast heart rate that last 2-3 min long associated with dizziness afterwards. Pt feels exhausted now. Pt has been battling cold symptoms since Thursday. IO POTTER documented in this encounter Plan of Treatment Not on filedocumented as of this encounter Procedures Procedure Name Priority Date/Time Associated Comments Diagnosis XR CHEST 2 VIEWS STAT 05/24/2015 6:26 PM Resul ts for this STUDIO POTTER procedure are i n the results section. HCG QUALITATIVE URINE STAT 05/24/2015 5:57 PM Results for this STUDIO POTTER procedure are i n the results section. CBC WITH PLATELETS & STAT 05/24/2015 5:57 PM R esults for this DIFFERENTIAL STUDIO POTTER procedure are i n the results section. TSH WITH FREE T4 STAT 05/24/2015 5:57 PM Resul ts for this REFLEX STUDIO POTTER procedure are i n the results section. BASIC METABOLIC PANEL STAT 05/24/2015 5:57 PM Results for this STUDIO POTTER procedure are i n the results section. EKG 12-LEAD, TRACING STAT 05/24/2015 3:29 PM R esults for this ONLY STUDIO POTTER procedure are i n the results section. documented in this encounter Results XR Chest 2 Views (05/24/2015 6:26 PM STUDIO POTTER) Anatomical Region Laterality Modality Chest Computed Radiography Specimen (Source) Anatomical Location Collection Method / Collectio n Time Received Time / Laterality Volume Impressions 05/24/2015 7:10 PM STUDIO POTTER IMPRESSION: Negative chest. BRAULIO CANO MD Narrative 05/24/2015 7:10 PM STUDIO POTTER CHEST TWO VIEW 05/24/2015 6:26 PM HISTORY: ??Palpitations. COMPARISON: None. FINDINGS: Heart size normal. Lungs clear . Procedure Note Braulio Cano MD - 05/24/2015Forma tting of this note might be different from the original. CHEST TWO VIEW 05/24/2015 6:26 PM HISTORY: Palpitations. COMPARISON: None. FINDINGS: Heart size normal. Lungs clear . IMPRESSION IMPRESSION: Negative chest. BRAULIO CANO MD Gary Laguerre MD IMG DIAGNOSTIC IMAGING ORDER PATRICIO TSH with free T4 reflex (05/24/2015 5:57 PM STUDIO POTTER) athologist Signature TSH 1.78 0.40 - 4.00 [facility] Specimen Anatomical Collection Method Collection Time Receive d Time (Source) Location / / Volume Laterality Blood specimen 05/24/2015 5:57 PM 015 6:05 (specimen) STUDIO POTTER PM STUDIO POTTER Gary Laguerre MD LAB - BLOOD ORDERABLES Performing Organization Address City/[facility]/ZIP [facility] e [facility] [address] [place], [place] [address] [place] [address] [address] [place], [place] [address], [facility] [phone] HCG qualitative urine (05/24/2015 5:57 PM STUDIO POTTER) athologist Signature HCG Qual Urine Negative NEG [facility] Specimen Anatomical Collection Method Collection Time Receive d Time (Source) Location / / Volume Laterality Urine specimen URINE SPECIMEN 05/24/2015 5:57 PM 05/24 6:05 (specimen) OBTAINED BY CLEAN STUDIO POTTER PM STUDIO POTTER CATCH PROCEDURE / Unknown Gary Laguerre MD LAB - URINE ORDERABLES Performing Organization Address [facility] e [facility] [address] [place], [place] [address] [facility] [address] [place], [place] [address], [facility] [phone] Basic metabolic panel (05/24/2015 5:57 PM STUDIO POTTER) [facility] gist Method Time Signature Sodium 139 133 - 144 [place] mmol/L [facility] Potassium 3.7 3.4 - 5.3 [place] mmol/L [facility] Chloride 105 94 - 109 [place] mmol/L [facility] Carbon Dioxide 27 20 - 32 [place] mmol/L [facility] Anion Gap 7 3 - 14 [place] mmol/L [facility] Glucose 88 70 - 99 [place] mg/dL [facility] Urea Nitrogen 8 7 - 30 [place] mg/dL [facility] Creatinine 0.72 0.52 - [place] 1.04 [facility] mg/dL HOSPITAL GFR Estimate >90 >60 [place] Non GFR Calc mL/min/1. [facility] 7m2 HOSPITAL GFR Estimate >90 >60 [place] If Black GFR Calc mL/min/1. [facility] 7m2 [facility]OSPITAL Calcium 8.7 8.5 - [place] 10.1 [facility] mg/dL HOSPITAL Specimen Anatomical Collection Method Collection Time Receive d Time (Source) Location / / Volume Laterality Blood specimen 05/24/2015 5:57 PM 015 6:05 (specimen) STUDIO POTTER PM STUDIO POTTER Gary Laguerre MD LAB - BLOOD ORDERABLES Performing Organization Address City/State/ZIP Code Phon e Number [place] [address] [address] [place], [place] [address] [facility] [address] [phone] CBC with platelets differential (05/24/2015 5:57 PM STUDIO POTTER) [facility] gist Method Time Signature WBC 6.9 4.0 - [place] 11.0 [facility] 10e9/L [facility] RBC Count 4.72 3.8 - 5.2 [place] 10e12/L [facility] Hemoglobin 14.8 11.7 - [place] 15.7 g/dL [facility] Hematocrit 42.8 35.0 - [place] 47.0 % [facility] MCV 91 78 - 100 [facility] MCH 31.4 26.5 - [place] 33.0 pg [facility] MCHC 34.6 31.5 - [place] 36.5 g/dL [facility] RDW 12.4 10.0 - [place] 15.0 % [facility] Platelet Count 360 150 - 450 [place] 10e9/L [facility] Diff Method Automated [facility] % Neutrophils 60.1 % [facility] % Lymphocytes 30.5 % [facility] % Monocytes 6.1 % [facility] % Eosinophils 2.5 % [facility] % Basophils 0.7 % [facility] % Immature 0.1 % [place] Granulocytes [facility] Absolute 4.1 1.6 - 8.3 [place] Neutrophil 10e9/L [facility] Absolute 2.1 0.8 - 5.3 [facility] Lymphocytes 10e9/L [facility] HOSPITAL Absolute 0.4 0.0 - 1.3 [facility] Monocytes 10e9/L [facility]OSPITAL Absolute 0.2 0.0 - 0.7 [facility] Eosinophils 10e9/L [facility]OSPITAL Absolute 0.1 0.0 - 0.2 [place] Basophils 10e9/L [facility] Abs Immature 0.0 0 - 0.4 [place] Granulocytes 10e9/[facility] Specimen Anatomical Collection Method Collection Time Receive d Time (Source) Location / / Volume Laterality Blood specimen 05/24/2015 5:57 PM 015 6:05 (specimen) STUDIO POTTER PM STUDIO POTTER Gary Laguerre MD LAB - BLOOD ORDERABLES Performing Organization Address City/State/ZIP [facility] [place] [address] [address] [place] [address] [facility] [address] [phone] EKG 12 lead (05/24/2015 3:29 PM STUDIO POTTER) [facility] gist Method Time Signature Interpretation ECG Click View RADIOLOGY Image link RESULTS to view waveform and result Specimen (Source) Anatomical Collection Method Collection Time Re ceived Time Location / / Volume Laterality 05/24/2015 3:29 PM STUDIO POTTER Yvette Cortes MD ECG ORDERABLES Performing Organization Address City/State[place] [facility] [place] Number RADIOLOGY RESULTS documented in this encounter Visit Diagnoses Diagnosis Palpitations documented in this encounter Active and Recently Administered Medications Care Teams Pumpman Relationship Specialty Start Date End Date Sarah Montgomery PA-C PCP - General Family Practice 10/21/11 [address] [place] [address] documented as of this encounter
--- OUTSIDE RECORDS SUMMARY | 2022-01-03 08:24 | XMS_ITS | Encounter Summary ---
:1985 Author Organization [place] Address [address] [place] [address] Care Team Providers Name Role Phone Sarah Montgomery PA-C Primary Care Provider [phone] Reason for Visit Reason Onset Date Comments Nurse Advice Line 11/17/2015 Encounter Details Date Type Department Care Team Description 11/17/[address] [facility] Valentina, Nurse Advice Line [facility] [place] [facility] Sarah Aguilar PA-C () [address] [place] [id number] [place] [phone] [phone] Social History Tobacco Use Types Packs/Day Years [...] this encounter Miscellaneous Notes Telephone Encounter - Amanda Gamble RN - 11/17/2015 8:40 AM CDT Pt calls, see earlier nurse triage call, pt wonders if available appointments today, no appointmentsavailable, discussed with pt, denies vaginal bleeding, occasional cramping feeling, mild, hx of intense menstrual cramping with periods and this is nothing like this, able to fxn, inquired last BM, informs 2 days and small amount, hx of constipation, feels like has to go poop, encouraged to push fluids, increase fiber to encourage BM's, monitor, see if cramping improves, f/u in ER if vaginal bleeding, pain worsening etc, pt able to verbalize w/o difficulty, discuss bowel program with OB to see what recommendations, pt agrees Amanda Gamble RN, BSN Message handled by Nurse Triage. documented in this encounter Plan of Treatment Not on filedocumented as of this encounter Visit Diagnoses Not on filedocumented in this encounter Additional Health Concerns Assessment Noted Time PHQ-9 Depression Total Score: 0 09/07/2015 7:16 AM CDT documented as of this encounter Care Teams Export Freight Manager Relationship Specialty Start Date End Date Sarah Montgomery PA-C PCP - General Family Practice 10/21/11 [address] [place] [address] documented as of this encounter
--- OUTSIDE RECORDS SUMMARY | 2022-01-03 08:24 | XMS_ITS | Encounter Summary ---
:1985 Author Organization [place] Address [address] [place] [address] Care Team Providers Name Role Phone Sarah Montgomery PA-C Primary Care Provider [phone] Reason for Visit Reason Comments Insect Bites Encounter Details Date Type Department Care Team Description 11/21/2014 Office Visit [facility] Ryan Villalobos (Primary Clinic [place] MD Aj Dx) [id number] [place] [address] [place] [phone] [phone] Social History Tobacco Use Types Packs/Day Years Used Date Former Smoker Smokeless Tobacco: Never Used Comments: quit smoking 2months ago Alcohol Use Standard Drinks/Week Comments Yes 0 (1 standard drink = 0.6 oz pure alcoho l) occasionally Alcohol Habits Answer Date Recorded How often do you have a drink containing alcohol? Not asked How many drinks containing alcohol do you have on a Not aske d typical day when you are drinking? How often do you have six or more drinks on one occasion? No t asked Comment: occasionally 07/13/2008 Sex Assigned at Date Recorded Not on file documented as of this encounter Last Filed Vital Signs Vital Sign Reading Time Taken Comments Blood Pressure 120/60 11/21/2014 9:21 AM CDT Pulse 77 11/21/2014 9:21 AM CDT Temperature 36.8 ??C (98.2 ??F) 11/21/2014 9:21 AM CDT Respiratory Rate - - Oxygen Saturation 98% 11/21/2014 9:21 AM CDT Inhaled Oxygen Concentration - - Weight 66.3 kg (146 lb 1.6 oz) 11/21/2014 9:21 AM CDT Height - - Body Mass Index 23.58 11/16/2014 8:39 AM CDT documented in this encounter Progress Notes Ryan Villalobos MD - 11/21/2014 9:45 AM CDT SUBJECTIVE: Rhonda Tamayo is a 29 year old female who presents to clinic today for the following health issues: Patient presents with: Insect Bites Patient with rash over the past 2-3 weeks on her legs with multiple erythematous spots. Mild pruritus. Boyfriend recently had similar spot in the groin area as well afterwards. No previous similar rash. ROS: INTEGUMENTARY/SKIN: As above OBJECTIVE: BP 120/60 mmHg Pulse 77 Temp(Src) 98.2 ??F (36.8 ??C) (Oral) Wt 146 lb 1.6 oz (66.271 kg) SpO2 98%Body mass index is 23.59 kg/(m^2). GENERAL APPEARANCE: healthy, alert and no distress SKIN: Multiple small erythematous follicular spots about 2-3 mm in size over lower extremities ASSESSMENT/PLAN: 1. Folliculitis Discussed folliculitis versus scabies versus chigger bites vs other. Appears to be folliculitis withall lesions over hair follicles, recommend treat as below. Follow up in 2 weeks if not improving or if worsening symptoms occur. - cephALEXin (KEFLEX) 500 MG capsule; Take 1 capsule (500 mg) by mouth 3 times daily Dispense: 20 capsule; Refill: 0 Ryan Villalobos MD [facility] documented in this encounter Nursing Notes Faye Wong - 11/21/2014 9:23 AM CDT Chief Complaint Patient presents with ??? Insect Bites Initial BP 120/60 mmHg Pulse 77 Temp(Src) 98.2 ??F (36.8 ??C) (Oral) Wt 146 lb 1.6 oz (66.271 kg) SpO2 98% Estimated body mass index is 23.59 kg/(m^2) as calculated from the following: Height as of 11/16/14: 5' 6 (1.676 m). Weight as of this encounter: 146 lb 1.6 oz (66.271 kg). BP completed using cuff size: SMA Jadiel documented in this encounter Plan of Treatment Not on filedocumented as of this encounter Visit Diagnoses Diagnosis Folliculitis - Primary Other specified disease of hair and hair follicles documented in this encounter Care Teams Bander Hand Relationship Specialty Start Date End Date Sarah Montgomery PA-C PCP - General Family Practice 10/21/11 [address] [place] [address] documented as of this encounter
--- OUTSIDE RECORDS SUMMARY | 2022-01-03 08:24 | XMS_ITS | Encounter Summary ---
:1985 Author Organization [place] Address [address] [place] [address] Care Team Providers Name Role Phone Sarah Montgomery PA-C Primary Care Provider [phone] Reason for Visit Reason Comments Care NPN visit with the nurse Encounter Details Date Type Department Care Team Description 12/11/2015 Office [facility] p estelita (Primary Dx); Visit Clinic [place] Encounter for supervision of normal first , unspecified trimester [Z34.00] [address] [place] [id number] Social History Tobacco Use Types Packs/Day Years [...] Sign Reading Time Taken Comments Blood Pressure 100/58 12/11/2015 8:42 AM CDT Pulse - - Temperature - - Respiratory Rate - - Oxygen Saturation - - Inhaled Oxygen Concentration - - Weight 67.3 kg (148 lb 4.8 oz) 12/11/2015 8:42 AM CDT Height 167.6 cm (5' 6) 12/11/2015 8:42 AM CDT Body Mass Index 23.94 12/11/2015 8:42 AM CDT documented in this encounter Progress Notes Macie Roblero LPN - 12/11/2015 11:30 AM CDT Here for her NPN visit with the nurse, see Nursing notes. documented in this encounter Nursing Notes Macie Roblero LPN - 12/11/2015 11:25 AM CDT Chief Complaint Patient presents with ??? Care NPN visit with the nurse Rhonda Tamayo is here today for her NPN visit with the nurse, will be seeing Dr. Bautista for her care. Last Pap was NIL on 02/15/2014. Information given on first trimester screening. Will check with insurance company before deciding, and will advise triage nurse if interested. Initial BP 100/58 mmHg Ht 5' 6 (1.676 m) Wt 148 lb 4.8 oz (67.268 kg) BMI 23.95 kg/m2 LMP 10/12/2015 Estimated body mass index is 23.95 kg/(m^2) as calculated from the following: Height as of this encounter: 5' 6 (1.676 m). Weight as of this encounter: 148 lb 4.8 oz (67.268 kg). BP completed using cuff size: regular documented in this encounter Plan of Treatment Not on filedocumented as of this encounter Procedures Procedure Name Priority Date/Time Associated Diagnosis Comme nts ABO/RH TYPE AND Routine 12/11/2015 8:56 AM First pregnan cy Results for this SCREEN CDT Encounter for procedure are in supervision of the results normal first section. , unspecified trimester [Z34.00] URINE CULTURE Routine 12/11/2015 8:56 AM First pregnan cy Results for this CDT Encounter for procedure are in supervision of the results normal first section. , unspecified trimester [Z34.00] RUBELLA ANTIBODY Routine 12/11/2015 8:55 AM First pregna ncy Results for this IGG CDT Encounter for procedure are in supervision of the results normal first section. , unspecified trimester [Z34.00] HIV ANTIGEN Routine 12/11/2015 8:55 AM First pregnan cy Results for this ANTIBODY COMBO CDT Encounter for procedure ar e in supervision of the results normal first section. , unspecified trimester [Z34.00] HEPATITIS B SURFACE Routine 12/11/2015 8:55 AM First pre gnancy Results for this ANTIGEN CDT Encounter for procedure are in supervision of the results normal first section. , unspecified trimester [Z34.00] ANTI TREPONEMA Routine 12/11/2015 8:55 AM First pregnan cy Results for this CDT Encounter for procedure are in supervision of the results normal first section. , unspecified trimester [Z34.00] CBC WITH PLATELETS Routine 12/11/2015 8:55 AM First preg adalberto Results for this CDT Encounter for procedure are in supervision of the results normal first section. , unspecified trimester [Z34.00] documented in this encounter Results US OB < 14 Weeks Single (12/20/2015 10:49 AM CDT) Anatomical Region Laterality Modality Abdomen/Pelvis Ultrasound Specimen (Source) Anatomical Location Collection Method / Collectio n Time Received Time / Laterality Volume Narrative 12/21/2015 3:43 PM CDT Order #: [id number] Study Notes? Karley Damico on 12/20/2015 10:51 AM ?? [facility] Obstetrics & Gynecology [address] [facility] [address] [place] [address] ULTRASOUND - EARLY OB (0-11 WEEKS) Referring Provider: Nadiya Bautista Clinic: [facility] INDICATIONS FOR ULTRASOUND: OB History: ?? Present [...] M.D. Nadiya Bautista DO IMG US ORDERABLES Urine Culture Aerobic Bacterial (12/11/2015 8:56 AM CDT) Component Value Ref Test Analysis Performed At [facility] Method Time Signature Specimen Midstream Urine [facility] Culture Micro 10,000 to 50,000 colonies/mL mixed urogenital bryn Susceptibility testing not INFECTIOUS routinely done [facility] LAB[facility] Micro Report FINAL 12/12/2015 INFECTIOUS Status DISEASE DIAGNOSTIC LABORATORY Specimen Anatomical Collection Method Collection Time Receive d Time (Source) Location / / Volume Laterality Urine specimen 12/11/2015 8:56 AM 016 9:02 (specimen) CDT AM CDT Nadiya Bautista DO LAB - MICRO GENERAL ORDERABL ES Performing Organization Address City/State/ZIP Code Phon e Number INFECTIOUS DISEASES [address] [place] [address] DIAGNOSTIC LABORATORY, [facility] [address] [place] [address] [place] [address] INFECTIOUS DISEASE [address] [place] [address], [facility] DIAGNOSTIC LABORATORY ABO/RH TYPE AND SCREEN (12/11/2015 8:56 AM CDT) Patholo gist Method Time Signature Units Ordered <<Do Not [place] Report>> [facility] ABO A [facility] RH(D) Pos [facility] Antibody Neg [place] Screen [facility] Test Valid [facility] Only At [facility] Specimen 12/14/2015 [place] [facility] Specimen Anatomical Collection Method Collection Time Receive d Time (Source) Location / / Volume Laterality Blood specimen 12/11/2015 8:56 AM 016 9:01 (specimen) CDT AM CDT Nadiya Bautista DO LAB - BLOOD BANK TEST ORDER Performing Organization Address City/[facility]/ZIP Code Phon e Number [facility] [address] [place], [place] [address] [facility] [address] [place], [place] [address] [facility] [phone] Anti Treponema (12/11/2015 8:55 AM CDT) Analysis Performed At Path logist Time Signature Treponema Negative NEG [facility] MEDICAL Antibody CENTER [facility] Specimen Anatomical Collection Method Collection Time Receive d Time (Source) Location / / Volume Laterality Blood specimen 12/11/2015 8:55 AM 016 9:00 (specimen) CDT AM CDT Nadiya Bautista DO LAB - BLOOD ORDERABLES Performing Organization Address City/State/ZIP Code Phon e Number [facility] [address] [place] [address] [facility] Hepatitis B surface antigen (12/11/2015 8:55 AM CDT) [facility] gist Method Time Signature Hep B Surface Nonreactive NR [facility] Specimen Anatomical Collection Method Collection Time Receive d Time (Source) Location / / Volume Laterality Blood specimen 12/11/2015 8:55 AM 016 9:00 (specimen) CDT AM CDT Nadiya Bautista DO LAB - BLOOD ORDERABLES Performing Organization Address City/[facility]/ZIP Code Phon e Number [address] Rubella Antibody IgG Quantitative (12/11/2015 8:55 AM CDT) Analysis Performed At [facility] log[facility] Time Signature Rubella Antibody 7 IU/mL [facility] IgG Quantitative [facility] Comment: Negative Reference Range: ?? Unvaccinated Negative 0-7 IU/mL Vaccinated or previous exposure Positiv e 10 IU/ml or greater Specimen Anatomical Collection Method Collection Time Receive d Time (Source) Location / / Volume Laterality Blood specimen 12/11/2015 8:55 AM 016 9:00 (specimen) CDT AM CDT Nadiya Bautista DO LAB - BLOOD ORDERABLES Performing Organization Address City/[facility]/ZIP Code Phon e Number [address] HIV Antigen Antibody Combo (12/11/2015 8:55 AM CDT) [facility] gist Method Time Signature HIV Antigen Nonreactive NR [facility] HIV-1 p24 Ag & HIV-1/HIV-2 Ab Not Detected [facility] Specimen Anatomical Collection Method Collection Time Receive d Time (Source) Location / / Volume Laterality Blood specimen 12/11/2015 8:55 AM 016 9:00 (specimen) CDT AM CDT Nadiya Bautista DO LAB - BLOOD ORDERABLES Performing Organization Address City/[facility]/ZIP Code Phon e Number [place] [id number] [place] CBC WITH PLATELETS (12/11/2015 8:55 AM CDT) P athologist Signature WBC 8.0 4.0 - 11.0 [place] 10e9/L [facility] RBC Count 4.29 3.8 - 5.2 [facility] 10e12/L [facility] Hemoglobin 13.2 11.7 - [place] 15.7 g/dL [facility] Hematocrit 38.9 35.0 - [place] 47.0 % [facility] MCV 91 78 - 100 [facility] MCH 30.8 26.5 - [place] 33.[address] [facility] MCHC 33.9 31.5 - [place] 36.5 g/dL [facility] RDW 12.2 10.0 - [place] 15.0 % [facility] Platelet Count 255 150 - 450 [place] 10e9/L [facility] Specimen Anatomical Collection Method Collection Time Receive d Time (Source) Location / / Volume Laterality Blood specimen 12/11/2015 8:55 AM 016 9:00 (specimen) CDT AM CDT Nadiya Bautista DO LAB - BLOOD ORDERABLES Performing Organization Address City/State/ZIP Code Phon e Number [facility] [address] [place], [place] [address] [address] documented in this encounter Visit Diagnoses Diagnosis First - Primary Supervision of normal first Encounter for supervision of normal firs t , unspecified trimester [Z34.00] First Supervision of normal first documented in this encounter Additional Health Concerns Assessment Noted Time PHQ-9 Depression Total Score: 0 09/07/2015 7:16 AM CDT documented as of this encounter Care Teams Area Field Manager Relationship Specialty Start Date End Date Sarah Montgomery PA-C PCP - General Family Practice 10/21/11 [address] [place] [address] documented as of this encounter
--- OUTSIDE RECORDS SUMMARY | 2022-01-03 08:25 | XMS_ITS | Encounter Summary ---
:1985 Author Organization [place] Address [address] [place] [address] Care Team Providers Name Role Phone Morris Murray MD Primary Care Provider Unavailable Encounter Details Date Type Department Care Team Description 05/04/2007 Historic Notes INTERFACED REPORT Interface, Transcript on, Social History Tobacco Use Types Packs/Day Years Used Date Never Smoker Alcohol Use Standard Drinks/Week Comments No 0 (1 standard drink = 0.6 oz pure alcoho l) Sex Assigned at Date Recorded Not on file documented as of this encounter Progress Notes Interface, Commercial Engineer - 08/12/2010 6:28 AM CDT Allergies ?? No Known Allergies Basic Medication Information - No Home Medications: No Home Medications - History taken from:: Patient Discharge Orders Pharmacy - General Medications ?? Ondansetron -;ODT for ZOFRAN 4 mg dissolve tab(s) By Mouth Every 8 Hours PRN for Nausea Dispense #9. Do not push through foil backing: PEEL BACK foil and GENTLY remove. Place on tongue immediately. Administration with liquid is unnecessary., , Active Pharmacy - Analgesics/NSAIDs ?? Hydrocodone/Acetaminophen -;5/500 mg for VICODIN 1 to 2 tablet(s) By Mouth Every 4 Hours PRN for Pain Max 8 tabs/24 hours. Dispense #20. Refills None., , Active Destination - Destination: Home. The above information was obtained from available resources. Review this list with your primary physician and take all medications as directed. Signatures JADEN FOSTER (KELLIE)[Signed 03:04] Authored: Allergies, Basic Medication Information, Discharge Orders, Destination documented in this encounter Plan of Treatment Not on filedocumented as of this encounter Visit Diagnoses Not on filedocumented in this encounter Care Teams Behavioral Psychologist Relationship Specialty Start Date End Date Morris Murray MD PCP - General 06/24/0410/19 documented as of this encounter
--- OUTSIDE RECORDS SUMMARY | 2022-01-03 08:25 | XMS_ITS | Encounter Summary ---
:1985 Author Organization [place] Address [address] [place] [address] Care Team Providers Name Role Phone Leland Montgomery PA-C Primary Care Provider [phone] Reason for Visit Reason Comments Colposcopy 10/21/11 LSIL, HSIL in 2008 w / colp Encounter Details Date Type Department Care Team Description 01/19/2012 Office Visit [facility] Nadiya Bautista on Pap smear (Primary Dx); [facility] Pre-procedure lab exam; [address] [facility] [id number] [place] [address] [place] [address] [id number] Social History Tobacco Use Types Packs/Day Years Used Date Current Every Day Smoker Smokeless Tobacco: Never Used Comments: Pt. smokes 3 cigarettes daily Alcohol Use Standard Drinks/Week Comments Yes 0 [...] Reading Time Taken Comments Blood Pressure 110/64 01/19/2012 8:46 AM CDT Pulse 74 01/19/2012 8:46 AM CDT Temperature - - Respiratory Rate - - Oxygen Saturation 99% 01/19/2012 8:46 AM CDT Inhaled Oxygen Concentration - - Weight 62.5 kg (137 lb 11.2 oz) 01/19/2012 8:46 AM CDT Height 167.6 cm (5' 6) 01/19/2012 8:46 AM CDT Body Mass Index 22.23 01/19/2012 8:46 AM CDT documented in this encounter Patient Instructions Patient InstructionsNadiya Bautista DO - 01/19/2012 10:54 AM CDT Was given care sheet documented in this encounter Progress Notes Nadiya Bautista DO - 01/19/2012 8:50 AM CDT January 19, 2012 Shruti Kirkland 1985 26 year old AB is a 26yo who is here for colposcopy. She had an LGSIL pap at her routine annual exam on 10/21/11. This is her 2nd abnormal pap smear. Referring MD: Valentina Written/Informed consent? Yes Patient Education materials? Yes No LMP recorded. Patient is not currently having periods (Reason: Irregular Periods). ? No Abnormal bleeding? No Current outpatient prescriptions:medroxyPROGESTERone (DEPO-PROVERA) 150 MG/ML injection, Inject 1 mLinto the muscle every 3 months., Disp: 1 mL, Rfl: 0; NO ACTIVE MEDICATIONS, ., Disp: , Rfl: Allergies Allergen Reactions ??? No Known Drug Allergies Contraception: Depo-provera Age of first intercourse: 19 Total partners: 5 Current partner: 12 mo STD HX: HPV and HSV STD Culture:No Date: Sex abuse: No No immunosuppression. HPV Vaccine:No Smoker:Yes ETOH: Yes Drugs: No LMP: No LMP recorded. Patient is not currently having periods (Reason: Irregular Periods). UPT: Past Medical History Diagnosis Date ??? abnormal pap 06/02, 09/2011 '09 HSIL, colp neg, '12: History Substance Use Topics ??? Smoking status: Current Everyday Smoker ??? Smokeless tobacco: Never Used Comment: Pt. smokes 3 cigarettes daily ??? Alcohol Use: Yes occasionally Family history of female cancer(s): Breast no, Uterine no, Colon no and Ovarian no, Grandmother cervical cancer Pap Hx: PAP LSIL 10/21/2011 Treatment HX: Past Surgical History Procedure Date ??? No history of surgery Yes Transformation zone TZ Yes Columnar epithellum C Yes Squamocolumnar junction SCJ Yes Original SCJ Yes Squamous metaplasia OSCJ No Nabothian cyst N No Gland openings G Yes Acetowhite epithelium AWE 0300, 0600 and 0900 Yes Punctuation line /coarse /reverse P Yes Mosaic fine/ coarse M No Atypical vessels AV No Suspect cancer Ca Yes [place] adequate The nature of abnormal paps and reason for doing colposcopy were again discussed with the patient today. All questions answered. The colposcopy procedure was explained and the consent form signed. Procedure: External genitalia examined and normal. Speculum placed and cervix visualized. Vagina normal with nolesions noted. Acetic acid applied to the cervix. The colposcopy is satisfactory as the entire transformation zone is visualized. Mild acetowhite epithelial changes noted 0300, 0600 and 0900 o'clock position. Biopsy is completed on the cervix at the 0300, 0600 and 0900 o'clock position with ECC performed. Specimen placed aside to be sent to pathology. Hemostasis obtained with silver nitrite stick. Speculum removed. She tolerated the procedure well. There were no apparent complications. She is instructed not to use tampons or have intercourse for 5 days. Instructed to call if she has persistent bleeding, foul vaginal discharge or any other concerns. Assessment: is a 26 yo who is here for colposcopy. She had an LGSIL pap at her routine annual exam on 10/21/11. This is her 2nd abnormal pap smear. 1. Presumptive diagnosis is ELZBIETA 1. 2. Hx of HSV desires refill PLAN: 1. Await pathology 2. Refill for valtrex called in. Dr. Nadiya Bautista DO UNIVERSITY ADMINISTRATIVE ASSISTANT [facility] documented in this encounter Nursing Notes 01/19/2012 8:45 AM CDT >> KEARA Boyle Jan 19, 2012 8:50 AM Patient presents with: Colposcopy - 10/21/11 LSIL, HSIL in 2008 w/ colp Initial BP 110/64 Pulse 74 Ht 5' 6 (1.676 m) Wt 137 lb 11.2 oz (62.46 kg) BMI 22.23 kg/m2 SpO2 99% Estimated Body mass index is 22.23 kg/(m^2) as calculated from the following: Height as of this encounter: 5' 6(1.676 m). Weight as of this encounter: 137 lb 11.2 oz(62.46 kg).. BP completed using cuff size: regular Keara Ledesma ORGAN GRINDER documented in this encounter Plan of Treatment Not on filedocumented as of this encounter Procedures Procedure Name Priority Date/Time Associated Comments Diagnosis HC COLP CERVIX/UPPER Routine 01/19/2012 10:47 LGSIL on Pap sme ar VAGINA AM CDT SURGICAL PATHOLOGY Routine 01/19/2012 9:50 AM LGSIL on Pap sme ar Results for this EXAM CDT procedure are i n the results section. HCG QUALITATIVE URINE Routine 01/19/2012 8:47 AM Pre-procedure lab Results for this CDT exam procedure are i n the results section. documented in this encounter Results Surgical pathology exam (01/19/2012 9:50 AM CDT) Component Value Ref Test Analysis Performed At [facility] Range Method Time Signature Copath Report Patient Name: SHRUTI KIRKLAND MR#: [id number] Specimen #: [id number] Collected: 01/19/2012 Received: 01/20/2012 Reported: 01/21/2012 13:41 Ordering Phy(s): NADIYA BAUTISTA Additional Phy(s): LELAND MONTGOMERY SPECIMEN(S): A: Cervical biopsy, 6 o'clock B: Cervical biopsy, 9 o'clock C: Cervical biopsy, 3 o'clock D: Endocervical curettings FINAL DIAGNOSIS: A. ??Cervix, 6 o'clock, biopsy - Squamous mucosa without marla gnostic dysplasia. ??Negative for malignancy. ??Transition zone not present. B. ??Cervix, 9 o'clock, biopsy - Squamous mucosa with focal minimal atypia suggestive of low grade squamous intraepithelial lesi on. (ELZBIETA I). Transition zone not present. C. ??Cervix, 3 o'clock, biopsy - Squamous mucosa with focal minimal atypia suggestive of low grade squamous intraepithelial lesi on. (ELZBIETA I). Transition zone not present. D. ??Endocervix, curettage - Focal reactive epithelial meier es. ??Negative for dysplasia and malignancy. COMMENT: The biopsy features would correlate with the findings on the low grade Pap smear from September 2011. Electronically signed out by: Gary Laurent M.D. CLINICAL HISTORY: LGSIL on Pap smear. GROSS: ? A. ??Specimen A is labeled cervical biopsy at 6 o'cl ock. ??The specimen consists of a pink tissue fragment measuring up to 0.2 cm. ??The specimen is entirely submitted. ? B. ??Specimen B is labeled cervical biopsy at 9 o'cl ock. ??The specimen consists of a pink rubbery tissue fragment measurin g up to 0.2 cm. ??The specimen is entirely submitted. ? C. ??Specimen C is labeled cervical biopsy at 3 o'cl ock. ??The specimen consists of a pink rubbery tissue fragment measurin g up to 0.3 cm. ??The specimen is entirely submitted. ? D. ??Specimen D is labeled ECC. ??The specimen cons ists of pink tissue fragments measuring 0.5 x 0.5 x 0.5 cm in aggregate. ??The specimen is received in a cervical brush. ??The specimen is entirely submitted. ??SI TRS/sz MICROSCOPIC: A, B, C, D: ??Microscopic examination performed. There is focal minimal squamous atypia in specimens B and C suggestive of low grade squamous intraepithelial lesion. ??The features are borderline and on the low end of the subjective spectrum. TJK/sz 01-21-12 TESTING LAB LOCATION: [address] ??[id number] COLLECTION SITE: Client: [facility] Location: LVOB (R) Specimen Anatomical Collection Method Collection Time Receive d Time (Source) Location / / Volume Laterality 01/19/2012 9:50 AM 2 8:14 CDT AM CDT Nadiya Paris Tillemans DO LAB - BEAKER AP Performing Organization Address City/State/ZIP Code Phon e Number [place] HCG qualitative, urine (01/19/2012 8:47 AM CDT) P athologist Signature HCG Qual Urine Negative NEG [facility] Specimen Anatomical Collection Method Collection Time Receive d Time (Source) Location / / Volume Laterality Urine specimen 01/19/2012 8:47 AM 012 8:48 (specimen) CDT AM CDT Nadiya Bautista DO LAB - URINE ORDERABLES Performing Organization Address City/State/ZIP Code Phon e Number [facility] [address] [place] [address] [facility] documented in this encounter Visit Diagnoses Diagnosis Papanicolaou smear of cervix with low gr angelo squamous intraepithelial lesion (LGSIL) - Primary Pre-procedure lab exam Pre-procedural laboratory examination Recurrent herpes simplex Herpes simplex without mention of compli cation documented in this encounter Care Teams Director Diversity Relationship Specialty Start Date End Date Leland Montgomery PA-C PCP - General Family Practice 10/21/11 [address] [place] [address] documented as of this encounter
--- OUTSIDE RECORDS SUMMARY | 2022-01-03 08:25 | XMS_ITS | Encounter Summary ---
:1985 Author Organization [facility] Address [address] [place] [address] Care Team Providers Name Role Phone Sonny Murray MD Primary Care Provider Unavailable Reason for Visit Reason Comments Derm Problem HPV/genital warts Encounter Details Date Type Department Care Team Description 06/19/2008 Office Visit [facility] Sonny Murray Screening for Malignant Neoplasm of the Cervix (Primary Dx); [facility] MD Yoel Special Scree luisa Examination for Other Specified Chlamydial Diseases; [place] Need Vaccination-Viral Disea se; [address] HPV (Human Papilloma Virus) Anogenital Infection [address] [place] [address] Social History Tobacco Use Types Packs/Day Years Used Date Never Smoker Alcohol Use Standard Drinks/Week Comments No 0 (1 standard drink = 0.6 oz pure alcoho l) Sex Assigned at Date Recorded Not on file documented as of this encounter Last Filed Vital Signs Vital Sign Reading Time Taken Comments Blood Pressure 100/70 06/19/2008 5:15 PM BOW MAKING MACHINE OPERATOR Pulse - - Temperature - - Respiratory Rate - - Oxygen Saturation - - Inhaled Oxygen Concentration - - Weight 64.2 kg (141 lb 8 oz) 06/19/2008 5:15 PM BOW MAKING MACHINE OPERATOR Height 167.6 cm (5' 6) 06/19/2008 5:15 PM BOW MAKING MACHINE OPERATOR Body Mass Index 22.84 06/19/2008 5:15 PM BOW MAKING MACHINE OPERATOR documented in this encounter Progress Notes Sonny Murray - 06/19/2008 6:10 PM CST SUBJECTIVE: Rhonda Kirkland is a 22 year old , single female, P0 woman who presents for annual exam. Patient's last menstrual period was 06/15/2008. Menarche at age 15 y.o. Periods are regular and 28 days, lasting 5 days, x 1 year. Dysmenorrhea none. Saturates 1 pad or tampon in 3 hours. Cyclic symptoms include bloating. Current contraception: none History of abnormal Pap smear: no Regular self breast exam: No Family history of breast cancer: no. Colon cancer no. Ovarian cancer no. History of abnormal lipids: no No past medical history on file. No past surgical history on file. Current Outpatient Rx Name Route Sig Dispense Refill ??? NO ACTIVE MEDICATIONS . ??? ORTHO TRI-CYCLEN LO 0.025 MG OR TABS Oral 1 TABLET DAILY 3 month 3 ??? ZHANE 28 3-0.03 MG OR TABS Oral ONE TABLET DAILY 3 MONTHS 1 YEAR Allergies Allergen Reactions ??? No Known Drug Allergies History Substance Use Topics ??? Tobacco Use: Never ??? Alcohol Use: No Review of Systems CONSTITUTIONAL:NEGATIVE EYES: NEGATIVE ENT/MOUTH: NEGATIVE RESP: NEGATIVE CV: NEGATIVE GI: NEGATIVE : NEGATIVE MUSCULOSKELATAL: NEGATIVE INTEGUMENTARY/SKIN: NEGATIVE BREAST: NEGATIVE NEURO: NEGATIVE. OBJECTIVE: BP 100/70 Ht 5' 6 (1.676 m) Wt 141 lb 8 oz (64.184 kg) LMP 06/15/2008 General appearance: Healthy. Skin: Normal. Mental Status: cooperative, normal affect, no gross thought process defects. Thyroid: Normal to palpation, no enlargement or nodules noted. Breasts: Symmetric without mass tenderness or discharge. Axillary nodes negative. Lungs: Clear to auscultation. Heart.: Normal rate and rhythm. No murmurs, clicks or gallops. Abdomen: BS active. Soft, non-tender, no masses or organomegaly. Pelvis: POSITIVE for perineal HPV, 4 small lesions, between posterior forchette and rectum , normal groin lymphatics, normal urethral meatus, normal vaginal mucosa, normal cervix, normal adnexa, no masses or tenderness, uterus normal size and shape and uterus antiverted Extremities: Normal HPV treated with TCA, declined condolyx, aldara. ASSESSMENT: Satisfactory annual guide travel exam. HPV. PLAN: 1) Pap smear 2) Mammography, lipids at appropriate intervals PE: reviewed health maintenance including diet, regular exercise and periodic exams. MAKING MACHINE OPERATOR documented in this encounter Nursing Notes 06/19/2008 5:15 PM CST >> SAUMYA Boyle Jun 19, 2008 5:33 PM Rhonda Kirkland presents for consult for genital warts. [facility]. States warts are between vagina and rectal areas. Initial BP 100/70 Ht 5' 6 (1.676 m) Wt 141 lb 8 oz (64.184 kg) LMP 06/18/2008 Body mass indexis 22.84 kg/(m^2).. BP completed using cuff size: regular Saumya Shaver RN documented in this encounter Plan of Treatment Not on filedocumented as of this encounter Procedures Procedure Name Priority Date/Time Associated Diagnosis Comme nts HC DESTRUCT BENIGN Routine 06/19/2008 7:50 PM HPV (Human Papil darius LESION, UP TO 14 BOW MAKING MACHINE OPERATOR Virus) Anogenital Infection CL AFF Routine 06/19/2008 7:23 PM Special Screening Resu lts for this N.GONORRHOEAE, DNA BOW MAKING MACHINE OPERATOR Examination for proced ure are in AMP PROBE Other Specified the results Chlamydial Diseases section. CL AFF CHLMYD Routine 06/19/2008 7:23 PM Special Screening Res ults for this TRACH, DNA, AMP BOW MAKING MACHINE OPERATOR Examination for procedure are in PROBE Other Specified the results Chlamydial Diseases section. HCL PAP THIN LAYER Routine 06/19/2008 12:00 AM Screening for R esults for this SCREEN BOW MAKING MACHINE OPERATOR Malignant Neoplasm procedure are in of the Cervix the results section. documented in this encounter Results CHLMYD TRACH, DNA, AMP PROBE (06/19/2008 7:23 PM BOW MAKING MACHINE OPERATOR) Component Value Ref Test Analysis Performed At [facility] gist Range Method Time Signature Specimen [facility] LAB Chlamydia Negative for C. trachomatis rRNA by purchasing and fiscal clerk mediated amplification. [facility] Trachomatis A negative result by transc ription mediated amplification does not preclude the [facility] PCR presence of C. trachomatis infection because results are dependent on proper CAMPUS LABS and adequate collection, absence of inhibitors, and suffici ent rRNA to be detected. Specimen Anatomical Collection Method Collection Time Receive d Time (Source) Location / / Volume Laterality 06/19/2008 7:23 PM 9 7:29 BOW MAKING MACHINE OPERATOR PM BOW MAKING MACHINE OPERATOR Sonny Murray MD LABORATORY Performing Organization Address City/[facility]/ZIP Code Phon e Number [id number] [place] [address] LAB [facility] LABS N.GONORRHOEAE, DNA, (GC) (06/19/2008 7:23 PM BOW MAKING MACHINE OPERATOR) Component Value Ref Test Analysis Performed At [facility] Range Method Time Signature Specimen Vagina [facility] LAB N Gonorrhea Negative for N. gonorrhoeae rRNA by purchasing and fiscal clerk mediated amplification. [facility] PCR A negative result by transc ription mediated amplification does not preclude the [facility] presence of N. gonorrhoeae infection because re sults are dependent on proper [place] LABS and adequate collection, absence of inhibitors, and suffici ent rRNA to be detected. Specimen Anatomical Collection Method Collection Time Receive d Time (Source) Location / / Volume Laterality 06/19/2008 7:23 PM 9 7:29 BOW MAKING MACHINE OPERATOR PM BOW MAKING MACHINE OPERATOR Sonny Murray MD LABORATORY Performing Organization Address [facility]/ZIP Code Phon e Number [phone] [place] [address] LAB [facility] LABS (ABNORMAL) A THIN LAYER PAP SCREEN (06/19/2008 12:00 AM BOW MAKING MACHINE OPERATOR) Component Value Ref Test Analysis Performed At [facility] Range Method Time Signature PAP HSIL (A) COPATH Copath Report COPATH Patient Name: RHONDA KIRKLAND MR#: [id number] Specimen #: [id number] Collected: 06/19/2008 Received: 06/21/2008 Reported: 06/23/2008 16:27 Ordering Phy(s): SONNY MURRAY SPECIMEN/STAIN PROCESS: Pap thin layer prep screening ([facility]) ? Pap-Cyto x 1, Reflex HPV x 1 SOURCE: Cervical, endocervical ---- Pap thin layer prep screening ([facility]) SPECIMEN ADEQUACY: Satisfactory for evaluation. -Transformation zone component present. CYTOLOGIC INTERPRETATION: Epithelial Cell Abnormality: ??Squamous Cell: ??High-grade s quamous intraepithelial lesion (HSIL) encompassing: moderate and sev ere dysplasia, carcinoma In Situ/ CIN2 and ELZBIETA 3. Electronically signed out by: Mauri Pisano M.D. Process[facility] CLINICAL HISTORY: LMP: 06/15/08 Previous normal pap Date of Last Pap: 06/29/06, TESTING LAB LOCATION: [facility] [address], [place] ??[address] COLLECTION SITE: Client: ??[facility] Location: RIOB (R) Specimen (Source) Anatomical Collection Method Collection Time Re ceived Time Location / / Volume Laterality 06/19/2008 06/21/2008 9:03 AM BOW MAKING MACHINE OPERATOR Sonny Murray MD LABORATORY Performing Organization Address City/State/ZIP Code Phon e Number COPATH documented in this encounter Visit Diagnoses Diagnosis Screening for malignant neoplasm of the cervix - Primary Special screening examination for other specified chlamydial diseases Need for prophylactic vaccination and in oculation against other viral diseases(V04.89) Need for prophylactic vaccination and in oculation against other viral diseases HPV (human papilloma virus) anogenital i nfection Human papillomavirus in conditions class ified elsewhere and of unspecified site documented in this encounter Care Teams Loan Officer Relationship Specialty Start Date End Date Sonny Murray MD PCP - General 06/24/0410/19 documented as of this encounter
--- OUTSIDE RECORDS SUMMARY | 2022-01-03 08:25 | XMS_ITS | Encounter Summary ---
:1985 Author Organization [facility] Address [address] [place] [address] Care Team Providers Name Role Phone Sarah Montgomery PA-C Primary Care Provider [phone] Reason for Visit (Routine) - Closed Specialty Diagnoses / Procedures Referred By Contact Refer red To Contact Radiology / Radiology. Diagnoses epic, sb pt, MRI safe Rh Mri Procedures MR BRAIN WWO [address] [place] [address] Phone: Fax: Referral ID Status Reason Start Date Expiration Date Visits Requ ested Visits Authorized [id number] Closed 10/05/2014 10/05/2015 1 1 Encounter Details Date Type Department Care Team Description 10/11/2014 Hospital Encounter [facility] Poonam Rosales; [facility] ARPAN [place] AUTO TUNE UP MECHANIC Headache(784.0) [address] [facility] [address] [facility] [address] [place], [place] [phone] [address] Social History Tobacco Use Types Packs/Day Years [...] Sig Dispensed Refills Start Date End Date vitamin D (ERGOCALCIFEROL) Take 1 capsule 8 capsule 0 10/0611/25/2014 86962 UNIT (50,000 Units) by capsuleIndications: mouth every 7 days Vitamin D deficiency for 8 doses Cholecalciferol (VITAMIN Take 2,000 Units 100 tablet 3 10/0605/24/2015 D) 2000 UNITS by mouth daily tabletIndications: Vitamin D deficiency montelukast (SINGULAIR) 10 Take 1 tablet (10 90 tablet 3 05/24/2015 MG tabletIndications: mg) by mouth At Allergic rhinitis, Bedtime Seasonal allergic rhinitis, Ear itching sfxjilvg-confgymou-qjaevbs Place 4 drops into 10 mL 0 0 10/05/2014 11/16/2014 rtisone (CORTISPORIN) both ears 4 times 3.5-67585-5 otic daily suspensionIndications: Eczema of both external ears valACYclovir (VALTREX) Take 1 tablet 60 tablet 0 09/11/2014 05/24/2015 1000 mg tabletIndications: (1,000 mg) by Genital herpes mouth 2 times daily documented as of this encounter Plan of Treatment Not on filedocumented as of this encounter Procedures Procedure Name Priority Date/Time Associated Diagnosis Comme nts MR BRAIN W/O Routine 10/11/2014 8:02 AM Dizziness Results for this CONTRAST CDT Headache(784.0) procedure ar e in the results section. documented in this encounter Results MR Brain w/o Contrast (10/11/2014 8:02 AM CDT) Anatomical Region Laterality Modality Head, SUBRAD MR NEURO, UMP MR NEURO Magn etic Resonance Specimen (Source) Anatomical Location Collection Method / Collectio n Time Received Time / Laterality Volume Impressions 10/11/2014 9:04 AM CDT IMPRESSION: Negative, no structural abnormalities are identified. ANTELMO DAVIES MD Narrative 10/11/2014 9:04 AM CDT MR BRAIN W/O CONTRAST ??10/11/2014 8:02 AM HISTORY: ??rule out abnormality,Dizzines s and giddiness TECHNIQUE: Multiplanar, multisequence MR I of the brain without gadolinium IV contrast material. COMPARISON: None. FINDINGS: ??The brain parenchyma, ventri cles and subarachnoid spaces appear normal for age. ??There is no gina dence of hemorrhage, mass, acute infarct, or anomaly. The facial st ructures appear normal. ??The arteries at the base of the brain and th e dural venous sinuses appear patent. ? Procedure Note Caio Davies MD - 10/11/2014For matting of this note might be different from the original. MR BRAIN W/O CONTRAST 10/11/2014 8:02 AM HISTORY: rule out abnormality,Dizziness and giddiness TECHNIQUE: Multiplanar, multisequence MR I of the brain without gadolinium IV contrast material. COMPARISON: None. FINDINGS: The brain parenchyma, ventricl es and subarachnoid spaces appear normal for age. There is no evide nce of hemorrhage, mass, acute infarct, or anomaly. The facial st ructures appear normal. The arteries at the base of the brain and th e dural venous sinuses appear patent. IMPRESSION IMPRESSION: Negative, no structural abno rmalities are identified. ANTELMO DAVIES MD Poonam Rosales APRN AUTO TUNE UP MECHANIC IMG MRI ORDERABLES documented in this encounter Visit Diagnoses Diagnosis Dizziness Dizziness and giddiness Headache(784.0) Headache documented in this encounter Care Teams Distribution Center Administrator Relationship Specialty Start Date End Date Sarah Montgomery PA-C PCP - General Family Practice 10/21/11 [address] [place] [address] documented as of this encounter
--- OUTSIDE RECORDS SUMMARY | 2022-01-03 08:25 | XMS_ITS | Encounter Summary ---
:1985 Author Organization [facility] Address [address] [place] [address] Care Team Providers Name Role Phone Morris Murray MD Primary Care Provider Unavailable Encounter Details Date Type Department Care Team Description 05/04/2007 Results Only [facility] Se sara Roth MD [facility] EMERGENCY KADYY EZEKIEL PA Results [address] [place], [place] [phone] (Wo rk) Social History [...] Name Priority Date/Time Associated Diagnosis Comme nts CT ABDOMEN W Routine 05/04/2007 1:57 AM Result s for this CONTRAST WATER INSPECTOR procedure are i n the results section. documented in this encounter Results CT SCAN OF ABDOMEN CONTRAST (05/04/2007 1:57 AM WATER INSPECTOR) Specimen (Source) Anatomical Collection Method Collection Time Re ceived Time Location / / Volume Laterality 05/04/2007 1:57 AM WATER INSPECTOR Impressions RADIOLOGY RESULTS - 05/04/2007 10:[address] ABDOMEN AND PELVIS WITH CONTRAST ?? 1 07/05/2006 1:57:00 AM HISTORY: Right lower abdominal pain with nausea. Rule out appendicitis. TECHNIQUE: ??80 mL Optiray 300 IV. COMPARISON: None. FINDINGS: Abdomen: There are patchy areas of abnor mal cortical low attenuation bilaterally in the kidneys. This raises the possibility of pyelonephritis. However, the findings ar e nonspecific as to etiology. There is minimal periportal lymphedema i n the liver. No focal hepatic lesions are seen. The spleen, pancreas, gallbladder and adrenal glands appear normal. There is no adenopathy or free fluid. The bowel appears normal. Pelvis: The appendix is retrocecal and n ormal in appearance. The bladder, uterus and ovaries appear hilario l. IMPRESSION: Patchy abnormal enhancement in the cortex of both kidneys. This probably represents bilateral inter stitial pyelonephritis, but the findings are nonspecific as to etiol ogy, with differential diagnosis including other infiltrative a nd interstitial renal diseases. No evidence of appendicitis. Because the preliminary report indicated a normal appearance of the abdominal organs, I called this addition al information to the emergency room on 05/04/2007 at 9:30 AM. I spoke with Dr. Delvin Matute. Kaiden Roth MD SPECIAL IMAGING STUDIES Performing Organization Address City/State/ZIP Code Phon e Number RADIOLOGY RESULTS documented in this encounter Visit Diagnoses Not on filedocumented in this encounter Care Teams Operations Asst Relationship Specialty Start Date End Date Morris Murray MD PCP - General 06/24/0410/19 documented as of this encounter
--- OUTSIDE RECORDS SUMMARY | 2022-01-03 08:25 | XMS_ITS | Encounter Summary ---
:1985 Author Organization [facility] Address [address] [place] [address]. [place] [address] Care Team Providers Name Role Phone Sarah Montgomery PA-C Primary Care Provider [phone] Reason for Visit Reason Onset Date Comments Symptoms 11/22/2013 Encounter Details Date Type Department Care Team Description 11/22/2013 Telephone Adult Call Center Unknown, Provider Symptoms [address] [phone] Social History Tobacco Use Types Packs/Day Years [...] this encounter Miscellaneous Notes Telephone Encounter - Nilsa Marvin - 11/22/2013 8:32 AM CDT Assessment: Pt calling [facility] for appointment for chest pain. Has had constant chest pain since last night at about 1am, tightness and heaviness all the way across the chest. No history of this. Took Tums with no relief. This nurse notes pt called after hours nurseline last night and was directed to call 911. Pt did not do this. Plan: Protocol Reference: [facility] [place] Protocol Used: Chest Pain Plan: 911 advised, reinforcing importance of immediate evaluation. Patient instructed to check with health plan for coverage. Home care per protocol advice given Call back/seek medical care with any new or worsening symptoms/concerns. Counseling/Education: Caller verbalized understanding of plan. Caller agrees with advice given. documented in this encounter Plan of Treatment Not on filedocumented as of this encounter Visit Diagnoses Not on filedocumented in this encounter Care Teams Cupola Melter Relationship Specialty Start Date End Date Sarah Montgomery PA-C PCP - General Family Practice 10/21/11 [address] [place] [address] documented as of this encounter
--- OUTSIDE RECORDS SUMMARY | 2022-01-03 08:25 | XMS_ITS | Encounter Summary ---
:1985 Author Organization [facility]ora Address [address] [facility] [place] [address] Care Team Providers Name Role Phone Leland Montgomery PA-C Primary Care Provider Reason for Visit Reason Comments Physical pap, not fasting Encounter Details Date Type Department Care Team Description 12/13/2012 Office Visit [facility] Fede Montgomery general medical examination at a health care facility (Primary Dx); [facility] Leland Aguilar PA-C Genital herpes; [address] [address] [facility] Papanicolaou smear of vagina with atypic al squamous cells of undetermined significance (ASC-US); [place], [place] Lipid screeni ng; [id number] Screening for diabetes mellitus; [phone] Screening for u nspecified disorder of blood and blood-forming organs; (Work) Need for Tdap vaccination; [phone] Heart palpitati ons (Fax) Social History Tobacco Use Types Packs/Day Years [...] Sign Reading Time Taken Comments Blood Pressure 109/78 12/13/2012 9:36 AM CDT Pulse 80 12/13/2012 9:36 AM CDT Temperature 36.8 ??C (98.2 ??F) 12/13/2012 9:36 AM CDT Respiratory Rate - - Oxygen Saturation 98% 12/13/2012 9:36 AM CDT Inhaled Oxygen Concentration - - Weight 64.2 kg (141 lb 9.6 oz) 12/13/2012 9:36 AM CDT Height 167.6 cm (5' 6) 12/13/2012 9:36 AM CDT Body Mass Index 22.85 12/13/2012 9:36 AM CDT documented in this encounter Patient Instructions Patient InstructionsRenee Gold - 12/13/2012 9:40 AM CDT Preventive Health Recommendations Female Ages 18 to 25 Yearly exam: See your health care provider every year in order to o Review health changes. o Discuss preventive care. o Review your medicines if your doctor has prescribed any. You should be tested each year for STDs (sexually transmitted diseases). After age 20, talk to your provider about how often you should have cholesterol testing. Starting at age 21, get a Pap test every three years. If you have an abnormal result, your doctor may have you test more often. If you are at risk for diabetes, you should have a diabetes test (fasting glucose). Shots: Get a flu shot each year. Get a tetanus shot every 10 years. Consider getting the shot (vaccine) that prevents cervical cancer (Gardasil). Nutrition: Eat at least 5 servings of fruits and vegetables each day. Eat whole-grain bread, whole-wheat pasta and brown rice instead of white grains and rice. For bone health: Eat calcium-rich foods or take calcium pills (500 to 600 mg) twice a day with food. Also take vitamin D (1000 IUs) each day. Lifestyle Exercise at least 150 minutes a week each week (30 minutes a day, 5 days a week). This will help you control your weight and prevent disease. Limit alcohol to one drink per day. No smoking. Wear sunscreen to prevent skin cancer. See your dentist every six months for an exam and cleaning. documented in this encounter Progress Notes Leland Montgomery PA-C - 12/17/2012 8:29 AM CDT Quick Note: Dear Shruti, It was a pleasure to see you at your recent visit. Patient Active Problem List: CARDIOVASCULAR SCREENING; LDL GOAL LESS THAN 160 LGSIL on Pap smear The results of your recent total cholesterol test were within normal limits. Your total cholesterolshould be less than 200. The primary goal of therapy is the LDL or bad cholesterol. Your LDL level was within normal limits. Your LDL goal based on risk factors (i.e. smoking, family history, high blood pressure, low HDL cholesterol) and age is 160. Your HDL, or good cholesterol is normal. Your goal is an HDL level above 40 if you are male and 50 if you are female Triglycerides are another cholesterol component that is associated with heart disease. Normal triglycerides are less than 150. Your triglyceride level is normal. I would recommend: repeat fasting lipids and liver tests in 12 months. The rest of your labs are within normal limits : Results for orders placed in visit on 12/13/12 -PAP IMAGED THIN LAYER, DIAGNOSTIC PAP NIL Copath Report Value:* -CBC WITH PLATELETS WBC 10e9/L 4.6 Range: 4.0 - 11.0 10e9/L RBC Count 10e12/L 4.51 Range: 3.8 - 5.2 10e12/L Hemoglobin g/dL 14.4 Range: 11.7 - 15.7 g/dL Hematocrit % 41.4 Range: 35.0 - 47.0 % MCV fl 92 Range: 78 - 100 fl MCH pg 31.9 Range: 26.5 - 33.0 pg MCHC g/dL 34.8 Range: 31.5 - 36.5 g/dL RDW % 11.9 Range: 10.0 - 15.0 % Platelet Count 10e9/L 290 Range: 150 - 450 10e9/L -COMPREHENSIVE METABOLIC PANEL Sodium mmol/L 139 Range: 133 - 144 mmol/L Potassium mmol/L 4.5 Range: 3.4 - 5.3 mmol/L Chloride mmol/L 103 Range: 94 - 109 mmol/L Carbon Dioxide mmol/L 26 Range: 20 - 32 mmol/L Anion Gap mmol/L 10 Range: 6 - 17 mmol/L Glucose mg/dL 85 Range: 60 - 99 mg/dL Urea Nitrogen mg/dL 10 Range: 5 - 24 mg/dL Creatinine mg/dL 0.77 Range: 0.52 - 1.04 mg/dL GFR Estimate mL/min/1.7m2 >90 Range: >60 mL/min/1.7m2 GFR Estimate If Black mL/min/1.7m2 >90 Range: >60 mL/min/1.7m2 Calcium mg/dL 9.1 Range: 8.5 - 10.4 mg/dL Bilirubin Total mg/dL 1.0 Range: 0.2 - 1.3 mg/dL Albumin g/dL 4.5 Range: 3.9 - 5.1 g/dL Protein Total g/dL 7.9 Range: 6.8 - 8.8 g/dL Alkaline Phosphatase U/L 55 Range: 40 - 150 U/L ALT U/L 28 Range: 0 - 50 U/L AST U/L 32 Range: 0 - 45 U/L -LIPID REFLEX TO DIRECT LDL PANEL Cholesterol mg/dL 182 Range: 0 - 200 mg/dL Triglycerides mg/dL 42 Range: 0 - 150 mg/dL HDL Cholesterol mg/dL 87 Range: 50 - 110 mg/dL LDL Cholesterol Calculated mg/dL 86 Range: 0 - 129 mg/dL VLDL-Cholesterol mg/dL 8 Range: 0 - 30 mg/dL Cholesterol/HDL Ratio 2.1 Range: 0.0 - 5.0 -TSH WITH FREE T4 REFLEX TSH mU/L 2.20 Range: 0.4 - 5.0 mU/L Thank you for choosing [facility]. We appreciate the opportunity to serve you and look forward to supporting your healthcare needs in the future. If you have any questions or concerns, please contact us at Sincerely, Leland Montgomery PA-C TEST DESCRIPTIONS CBC (Complete Blood Count) includes hemoglobin, hematocrit, white blood cells, etc. This test can be used to detect anemia, infection, and abnormalities in blood cells. Cholesterol is one of the blood fats (lipids) and is the building block used by the body for cell wall and hormone production. Increased levels of cholesterol have been proven to directly contribute to heart disease and strokes. Triglycerides are one of the blood fats (lipids) and are thought to be associated with heart disease. If you have had anything to eat or drink other than water for 12 hours before the test and your level is high, you should have the test repeated after a 12 hour fast. Abnormally high results may alsobe associated with diabetes, kidney and liver diseases. LDL is the low density lipoprotein component of the cholesterol. It is the harmful substance that deposits cholesterol on the artery wise contributing to heart attacks and strokes. A high LDL level is associated with higher risk of coronary heart disease. HDL stands for high density lipoprotein and refers to the so-called good cholesterol. HDL picks up excess cholesterol in the bloodstream and carries it back to the liver for disposal. Individuals with higher than average HDL seem to have a lower risk of coronary disease. Vigorous exercise will helpincrease the blood levels of HDL. Risk Factor (Total cholesterol/HDL) is a commonly used ratio for cardiac risk assessment. Less than5.0 for men and 4.4 for women is ideal. Sodium is an electrolyte useful in diagnosis of dehydration, diabetes, hypertension, or other diseases involving electrolyte imbalance. It also preserves the balance between calcium and potassium to maintain normal heart action and equilibrium of the body. Potassium is also an electrolyte that works with sodium to regulate the body's water balance and normalize heart rhythm. Glucose is a measure of blood sugar and is one of the tests for diabetes. If you have not been fasting, your level will often be high. A low glucose level may be a cause of weakness or dizziness. Blood sugar ranks with cholesterol as a causative factor in arteriosclerosis and heart attacks. BUN & Creatinine are waste products excreted by the kidneys. A high BUN can be related to a high protein diet, heavy exercise, fever and infections, dehydration, kidney stones, and kidney disease.Creatinine elevation is less dependent on diet or exercise and better represents kidney impairment. Low values are not generally significant. Calcium is a mineral in the blood controlled by the parathyroid glands and kidneys. It is importantin the formation of bone, in muscle and nerve function, and in blood clotting. Disease of the parathyroid gland, diseased bones or kidneys, or defective absorption of calcium may cause abnormal levels from the intestine. ALT, AST, Alk Phos are liver tests. Enzymes found in the liver as well as skeletal and cardiac muscle. Elevations can often be seen in alcoholism, liver or heart disease. Slightly abnormal values are not considered significant. TSH stands for Thyroid Stimulating Hormone. A sensitive test used to determine how the thyroid gland is functioning. The thyroid gland produces hormones that control the body's metabolism. When too few hormones are produced (increased TSH), hypothyroidism occurs which can cause fatigue, sensitivity to cold, and weight gain - an overall slowing down of bodily functions. When too many thyroid hormonesare produces (or decreased TSH), it creates a condition call hyperthyroidism (such as Graves' disease) which causes rapid heartbeat, weight loss, and dizziness, among other symptoms. PSA stands for Prostate Specific Antigen. Elevated levels of PSA can increase with trauma, infection, inflammation, or disease processes in the prostate such as BPH (Benigh Prostatic Hypertrophy) or cancer. Glycohemoglobin or HgBA1C is a 3-month average of blood sugar. Leland Montgomery PA-C - 12/13/2012 9:40 AM CDT SUBJECTIVE: CC: Shruti Kirkland is an 27 year old woman who presents for preventive health visit. Healthy Habits: ?? Do you get at least three servings of calcium containing foods daily (dairy, green leafy vegetables, etc.)? yes ?? Amount of exercise or daily activities, outside of work: 3 day(s) per week ?? Problems taking medications regularly not applicable ?? Medication side effects: No ?? Have you had an eye exam in the past two years? no ?? Do you see a dentist twice per year? yes ?? Do you have sleep apnea, excessive snoring or daytime drowsiness?no Other concerns to address: Chest pains - irregular heart beats : Has been going on over a year. Last for less than a minute. Denies chest pain or SOB. But feels like heart pounding Today's PHQ-2 Score: 0 Abuse: Current or Past(Physical, Sexual or Emotional)- No Do you feel safe in your environment - Yes History Substance Use Topics ??? Smoking status: Former Smoker ??? Smokeless tobacco: Never Used Comment: quit smoking 2months ago ??? Alcohol Use: Yes occasionally The patient does not drink >3 drinks per day nor >7 drinks per week. Last Mammo:No results found. No results found for this basename: CHOL:2,HDL:2,LDL:2,TRI,CHOLHDLRATIO:2 in the last 38019 hours Reviewed orders with patient. Reviewed health maintenance and updated orders accordingly - Yes History of abnormal Pap smear: YES - updated in Problem List and Health Maintenance accordingly All Histories reviewed and updated in [facility]. ROS: C: NEGATIVE for fever, chills, change [...] NEGATIVE for changes in mood or affect Problem list, Medication list, Allergies, and Medical/Social/Surgical histories reviewed in [facility] andupdated as appropriate. Labs reviewed in [facility] OBJECTIVE: BP 109/78 Pulse 80 Temp 98.2 ??F (36.8 ??C) (Oral) Ht 5' 6 (1.676 m) Wt 141 lb 9.6 oz (64.229 kg) BMI 22.85 kg/m2 SpO2 98% LMP 11/22/2012 Estimated Body mass index is 22.85 kg/(m^2) as calculated from the following: Height as of this encounter: 5' 6(1.676 m). Weight as of this encounter: 141 lb 9.6 oz(64.229 kg). GENERAL APPEARANCE: healthy, alert and no distress EYES: Eyes grossly normal to inspection, PERRL and conjunctivae and sclerae normal HENT: ear canals and TM's normal, nose and mouth without ulcers or lesions, oropharynx clear and oral mucous membranes moist NECK: no adenopathy, no asymmetry, masses, or scars and thyroid normal to palpation RESP: lungs clear to auscultation - no rales, rhonchi or wheezes BREAST: normal without masses, tenderness or nipple discharge and no palpable axillary masses or adenopathy CV: regular rates and rhythm, normal S1 S2, no S3 or S4, no murmur, click or rub, no peripheral edema and peripheral pulses strong ABDOMEN: soft, nontender, no hepatosplenomegaly, no masses and bowel sounds normal (female): normal female external genitalia, vaginal mucosa pink, moist, well rugated and normal cervix, adnexae, and uterus without masses. Normal vaginal discharge MS: no musculoskeletal defects are noted and gait is age appropriate without ataxia SKIN: no suspicious lesions or rashes NEURO: Normal strength and tone, sensory exam grossly normal, mentation intact and speech normal PSYCH: mentation appears normal and affect normal/bright ATP III Guidelines FRAX Risk Assessment ICSI Preventive Guidelines ASSESSMENT/PLAN: V70.0 Routine general medical examination at a health care facility (primary encounter diagnosis) Comment: Plan: 054.10 Genital herpes Comment: Plan: valACYclovir (VALTREX) 1000 mg tablet 795.11 Papanicolaou smear of vagina with atypical squamous cells of undetermined significance (ASC-US) Comment: Plan: PAP imaged thin layer, diagnostic V77.91 Lipid screening Comment: Plan: Lipid panel reflex to direct LDL V77.1 Screening for diabetes mellitus Comment: Plan: Comprehensive metabolic panel V78.9 Screening for unspecified disorder of blood and blood-forming organs Comment: Plan: CBC with platelets V06.1 Need for Tdap vaccination Comment: Plan: BOOSTRIX (TDAP) 10-64, INJECTION INTRAMUSCULAR OR SUB-Q 785.1 Heart palpitations Comment: Ekg: within normal limits, Will get thyroid labs and determine plan. Discussed possible holter monitoring if symptoms continue Plan: TSH with free T4 reflex, EKG 12-lead complete w/read - Clinics Counseling: Dietary Guidelines for Americans, 2010 USDA's MyPlate regular exercise healthy diet/nutrition vision screening hearing screening contraception family planning safe sex practices/STD prevention reports that she has quit smoking. She has never used smokeless tobacco. Estimated Body mass index is 22.85 kg/(m^2) as calculated from the following: Height as of this encounter: 5' 6(1.676 m). Weight as of this encounter: 141 lb 9.6 oz(64.229 kg). Leland Montgomery PA-C, [facility] Patient Instructions Preventive Health Recommendations Female Ages 18 to 25 Yearly exam: See your health care provider every year in order to o Review health changes. o Discuss preventive care. o Review your medicines if your doctor has prescribed any. You should be tested each year for STDs (sexually transmitted diseases). After age 20, talk to your provider about how often you should have cholesterol testing. Starting at age 21, get a Pap test every three years. If you have an abnormal result, your doctor may have you test more often. If you are at risk for diabetes, you should have a diabetes test (fasting glucose). Shots: Get a flu shot each year. Get a tetanus shot every 10 years. Consider getting the shot (vaccine) that prevents cervical cancer (Gardasil). Nutrition: Eat at least 5 servings of fruits and vegetables each day. Eat whole-grain bread, whole-wheat pasta and brown rice instead of white grains and rice. For bone health: Eat calcium-rich foods or take calcium pills (500 to 600 mg) twice a day with food. Also take vitamin D (1000 IUs) each day. Lifestyle Exercise at least 150 minutes a week each week (30 minutes a day, 5 days a week). This will help you control your weight and prevent disease. Limit alcohol to one drink per day. No smoking. Wear sunscreen to prevent skin cancer. See your dentist every six months for an exam and cleaning. documented in this encounter Nursing Notes 12/13/2012 9:30 AM CDT >> RENEE GOLD Mon Dec 13, 2012 9:40 AM Patient presents with: Physical - pap, not fasting Initial BP 109/78 Pulse 80 Temp 98.2 ??F (36.8 ??C) (Oral) Ht 5' 6 (1.676 m) Wt 141 lb 9.6 oz (64.229 kg) BMI 22.85 kg/m2 SpO2 98% LMP 11/22/2012 Estimated Body mass index is 22.85 kg/(m^2) as calculated from the following: Height as of this encounter: 5' 6(1.676 m). Weight as of this encounter: 141 lb 9.6 oz(64.229 kg). BP completed using cuff size: regular Renee Gold [facility] Health maintenance Pt. Advised tetanus shot is due Renee Gold NUCLEAR MEDICINE SPECIALIST documented in this encounter Plan of Treatment Not on filedocumented as of this encounter Procedures Procedure Name Priority Date/Time Associated Diagnosis Comme nts TSH WITH FREE T4 Routine 12/13/2012 10:42 Heart palpitations R esults for this REFLEX AM CDT procedure are i n the results section. LIPID REFLEX TO DIRECT Routine 12/13/2012 10:42 Lipid screenin g Results for this LDL PANEL AM CDT procedure are i n the results section. COMPREHENSIVE Routine 12/13/2012 10:42 Screening for Results f or this METABOLIC PANEL AM CDT diabetes mellitus procedu re are in the results section. CBC WITH PLATELETS Routine 12/13/2012 10:42 Screening for Resu lts for this AM CDT unspecified disorder procedu re are in of blood and the results blood-forming organs section . EKG 12-LEAD COMPLETE Routine 12/13/2012 10:32 Heart palpitatio ns Results for this W/READ - CLINICS AM CDT procedure a re in the results section. PAP IMAGED THIN LAYER, Routine 12/13/2012 12:00 Papanicolaou s mear Results for this DIAGNOSTIC AM CDT of vagina with procedure are in atypical squamous the result s cells of section. undetermined significance (ASC-US) HPV SCR W REF TO CONCHA Routine 12/13/2012 12:00 Re sults for this ANAL PAP OR TISSUE AM CDT procedure are in the results section. documented in this encounter Results TSH with free T4 reflex (12/13/2012 10:42 AM CDT) P athologist Signature TSH 2.20 0.4 - 5.0 [facility] mU/L CLINIC LAB Specimen Anatomical Collection Method Collection Time Receive d Time (Source) Location / / Volume Laterality Blood specimen 12/13/2012 10:42 3 (specimen) AM CDT 10:44 AM CDT Leland Montgomery PA-C LAB - BLOOD ORDERABLES Performing Organization Address City/State/ZIP Code Phon e Number [facility] [address] [place] [address] [facility] [address] [place], [place] [id number] Lipid panel reflex to direct LDL (12/13/2012 10:42 AM CDT) athologist Signature Cholesterol 182 0 - 200 [facility] mg/dL CLINIC LAB Comment: LDL Cholesterol is the primary guide to therapy. The NCEP recommends further evaluation of: patients with cholesterol greater than 200 mg/dL if additional risk facto rs are present, cholesterol greater than 240 mg/dL, triglycerides greater than 1 50 mg/dL, or HDL less than 40 mg/dL. Triglycerides 42 0 - 150 mg/dL [facility] HDL Cholesterol 87 50 - 110 mg/dL [facility] LDL Cholesterol Calculated 86 0 - 129 mg/dL [facility] Comment: LDL Cholesterol is the primary guide to therapy: LDL-cholesterol goal in high risk patients is <100 mg/dL and in very high risk patients is <70 mg/dL. VLDL-Cholesterol 8 0 - 30 mg/dL [facility] Cholesterol/HDL Ratio 2.1 0.0 - 5.0 [facility] Specimen Anatomical Collection Method Collection Time Receive d Time (Source) Location / / Volume Laterality Blood specimen 12/13/2012 10:42 3 (specimen) AM CDT 10:44 AM CDT Leland Montgomery PA-C LAB - BLOOD ORDERABLES Performing Organization Address City/State/ZIP Code Phon e Number [facility] [place] [address] [place] [address] [facility] [address] [place] [address] Comprehensive metabolic panel (12/13/2012 10:42 AM CDT) athologist Signature Sodium 139 133 - 144 [place] mmol/L CLINIC LAB Potassium 4.5 3.4 - 5.3 [place] mmol/L [facility]IC LAB Chloride 103 94 - 109 [place] mmol/L [facility] LAB Carbon Dioxide 26 20 - 32 [place] mmol/L [facility]IC LAB Anion Gap 10 6 - 17 [place] mmol/L [facility]IC LAB Glucose 85 60 - 99 [place] mg/dL CLINIC LAB Urea Nitrogen 10 5 - 24 [place] mg/dL CLINIC LAB Creatinine 0.77 0.52 - [place] 1.04 mg/dL CLINIC LAB GFR Estimate >90 >60 [place] mL/min/1.7 CLINIC LAB m2 GFR Estimate If >90 >60 [place] Black mL/min/1.7 CLINIC LAB m2 Calcium 9.1 8.5 - 10.4 [place] mg/dL CLINIC LAB Bilirubin Total 1.0 0.2 - 1.3 [facility] Albumin 4.5 3.9 - 5.1 [place] g/dL CLINIC LAB Comment: Reference range changed on 01/24. Protein Total 7.9 6.8 - 8.8 g/dL [place] [facility] Comment: As of 07, reference range reflects plasma specimen type. Alkaline Phosphatase 55 40 - 150 U/L [facility] [place] [facility] ALT 28 0 - 50 U/L [facility] AST 32 0 - 45 U/L [facility] CLIN IC LAB Specimen Anatomical Collection Method Collection Time Receive d Time (Source) Location / / Volume Laterality Blood specimen 12/13/2012 10:42 3 (specimen) AM CDT 10:44 AM CDT Leland Montgomery PA-C LAB - BLOOD ORDERABLES Performing Organization Address City/State/ZIP Code Phon e Number [facility] [address] [place] [address] [facility] [address] [place] [address] CBC with platelets (12/13/2012 10:42 AM CDT) P athologist Signature WBC 4.6 4.0 - 11.0 [place] 10e9/L [facility] RBC Count 4.51 3.8 - 5.2 [place] 10e12/L [facility] Hemoglobin 14.4 11.7 - [place] 15.7 g/dL [facility] Hematocrit 41.4 35.0 - [place] 47.0 % [facility] MCV 92 78 - 100 [facility] MCH 31.9 26.5 - [facility] 33.0 pg [facility] MCHC 34.8 31.5 - [facility] 36.5 g/dL [facility] RDW 11.9 10.0 - [place] 15.0 % [facility] Platelet Count 290 150 - 450 [place] 10e9/L [facility] Specimen Anatomical Collection Method Collection Time Receive d Time (Source) Location / / Volume Laterality Blood specimen 12/13/2012 10:42 3 (specimen) AM CDT 10:44 AM CDT Leland Montgomery PA-C LAB - BLOOD ORDERABLES Performing Organization Address City/State/ZIP Code Phon e Number [facility] [address] [place] [address] [facility] [address] [place], [place] [address] EKG 12-lead complete w/read - Clinics (12/13/2012 10:32 AM CDT) Narrative This result has an attachment that is no t available. Leland Montgomery PA-C ECG ORDERABLES HPV screen with reflex to genotype (12/13/2012 12:00 AM CDT) Component Value Ref Test Analysis Performed At [facility] Range Method Time Signature Copath Report Patient Name: SHRUTI KIRKLAND MR#: [id number] Specimen #: [id number] Collected: 12/13/2012 00:00 Received: 12/21/2012 11:52 Reported: 12/23/2012 17:06 Ordering Phy(s): LELAND MONTGOMERY TEST(S) REQUESTED: Human Papillomavirus Screen Analysis SPECIMEN DESCRIPTION: Cervical Cells METHODOLOGY: ??Total cellular DNA was extracted from the abo ve specimen and up to 1 ug subjected to DNA amplification with a series of oligonucleotide primers directed to the L1 region of the hum an papillomavirus genome. ??The resulting PCR fragments were th en by capillary electrophoresis using a Qiagen FinalCAD with Bio ChemiSenseulator software. ??The PCR products from samples positive for HPV D NA were then digested with a series of restriction endonuclease enzymes. ??The resulting pattern of bands corresponding to the digested DNA products were interpreted according to the corresponding HPV DNA cont rols. Amplification of a segment of the beta globin gene serves as an internal control of DNA amplification. RESULTS (L1 region): ? NEGATIVE FOR HPV DNA Final Diagnosis: This patient's sample is negative for HPV DNA. Diagnosis Comment: This patient's sample is negative for HPV DNA.These results do not rule out the presence of an occult HPV infection which is not det ected due to either sampling error, or sample procurement. This test was developed and its performance determined by [facility]. It has not been cleared or approved by the U.S. Food and [place] g Administration. ??The FDA has determined that such clearance or approval is not necessary. ??Pursuant to the requirements of CLIA'88, this laboratory has established and verified the test's accuracy and precision. ??This test is used for clinical purposes. Electronically Signed Out By: YSOEF Discotheque Dancer TESTING LAB LOCATION: [address] [id number] COLLECTION SITE: Client: ??[facility] Location: ??[facility] (R) Specimen (Source) Anatomical Collection Method Collection Time Re ceived Time Location / / Volume Laterality 12/13/2012 12/21/2012 11:5 2 AM CDT Leland Montgomery PA-C LAB - GENOMICS Performing Organization Address City/State/ZIP Code Phon e Number COPATH PAP imaged thin layer, diagnostic (12/13/2012 12:00 AM CDT) Component Value Ref Test Analysis Performed At [facility] Range Method Time Signature PAP NIL COPATH Copath Report COPATH Patient Name: SHRUTI KIRKLAND MR#: [id number] Specimen #: [id number] Collected: 12/13/2012 Received: 12/14/2012 Reported: 12/15/2012 13:30 Ordering Phy(s): LELAND MONTGOMERY SPECIMEN/STAIN PROCESS: Pap Imaged thin layer prep diagnostic (SurePath, FocalPoint with guided screening) ? Pap-Cyto x 1, Reflex HPV x 1 SOURCE: Cervical, endocervical ---- Pap Imaged thin layer prep diagnostic (SurePath, FocalPoint with guided screening) SPECIMEN ADEQUACY: Satisfactory for evaluation. -Transformation zone component present. CYTOLOGIC INTERPRETATION: Negative for Intraepithelial Lesion or Malignancy Electronically signed out by: JOHNNIE Harden ( ASCP) Processed and screened at [facility] CLINICAL HISTORY: LMP: 11/22/12 Previous ASC-US Date of Last Pap: 06/30/12, Papanicolaou Test Limitations: ??Cervical cytology is a scre ening test with limited sensitivity; regular screening is critical for cancer prevention; Pap tests are primarily effective for the diagnosis/prevention of squamous cell carcinoma, not adenoca rcinomas or other cancers. TESTING LAB LOCATION: [address] ??[address] COLLECTION SITE: Client: ??[facility] Location: [facility] (R) Specimen (Source) Anatomical Collection Method Collection Time Re ceived Time Location / / Volume Laterality Cytologic 12/13/2012 12/14/2012 10:4 9 material AM CDT (specimen) Leland Montgomery PA-C LAB - OPTIME CLINICAL SPECIMEN Performing Organization Address City/State/ZIP Code Phon e Number COPATH documented in this encounter Visit Diagnoses Diagnosis Routine general medical examination at a health care facility - Primary Genital herpes Papanicolaou smear of vagina with atypic al squamous cells of undetermined significance (ASC-US) Lipid screening Screening for lipoid disorders Screening for diabetes mellitus Screening for unspecified disorder of bl ood and blood-forming organs Need for Tdap vaccination Need for prophylactic vaccination with c ombined pixvpccpcq-aqpdbor-oxlzffuch (DTP) vaccine Heart palpitations Palpitations documented in this encounter Care Teams Railroad Brakeman Relationship Specialty Start Date End Date Leland Montgomery PA-C PCP - General Family Practice 10/21/11 [address] [place] [address] documented as of this encounter
--- OUTSIDE RECORDS SUMMARY | 2022-01-03 08:25 | XMS_ITS | Encounter Summary ---
:1985 Author Organization [facility] Address [address] [place] [address] Care Team Providers Name Role Phone Sarah Montgomery PA-C Primary Care Provider Reason for Referral [facility] - Closed Specialty Diagnoses / Procedures Referred By Contact Refer red To Contact Diagnoses Dizziness Poonam Rosales APRN [facility] NURSE SURGEON [address] [facility] [address] [place] [address] [place] [address] Referral ID Status Reason Start Date Expiration Date Visits Requ ested Visits Authorized [id number] Closed 10/05/2014 04/03/2015 1 1 Reason for Visit Reason Comments Dizziness intermittent dizzy episodes after past few months last anywhere from a couple minutes to a couple h ours, also having headaches across forehead for last weeks. Pharyngitis sore, itchy throat started t brandon with ear itching Encounter Details Date Type Department Care Team Description [facility] Clinic Kiana Toledo APRN CNP Seasonal allergic rhinitis; [address] Ear itching; [place], [place] Dizziness; [place] [address] Headache(784.0); [id number] Eczema of both external ears [phone] Social History Tobacco Use Types Packs/Day Years [...] Sign Reading Time Taken Comments Blood Pressure 100/68 10/05/2014 8:27 AM CDT Pulse 90 10/05/2014 8:27 AM CDT Temperature 36.8 ??C (98.3 ??F) 10/05/2014 8:27 AM CDT Respiratory Rate - - Oxygen Saturation 100% 10/05/2014 8:27 AM CDT Inhaled Oxygen Concentration - - Weight 65.6 kg (144 lb 9.6 oz) 10/05/2014 8:27 AM CDT Height 167.6 cm (5' 6) 10/05/2014 8:27 AM CDT Body Mass Index 23.34 10/05/2014 8:27 AM CDT documented in this encounter Patient Instructions Patient InstructionsPoonam Rosales APRN CNP - 10/05/2014 8:51 AM CDT Vanicream to skin for dry skin Singulair daily for allergy Cortisporin ear drops 4 drops 4 times a day for 7-10 days Labs today MRI brain [phone] to schedule Eye exam [email or web address] documented in this encounter Progress Notes Poonam Rosales APRN CNP - 10/05/2014 8:29 AM CDT SUBJECTIVE: Rhonda Tamayo is a 28 year old female who presents to clinic today for the following health issues: 1) intermittent dizzy episodes in past few months last anywhere from a couple minutes to a couple hours, also having headaches across forehead for last week. Does hair and body hurts from that Feels like she gets enough sleep Feels foggy all the time No migraine history A couple weeks ago felt faint; otherwise feels unstable Took a nap Drinks a lot of water Headaches across forehead or on side ; annoying pain Comes and goes ; happens at different time of day Took ibuprofen if needed - not really that painful 2)sore, itchy throat started today with ear itching Takes allergy medication for throat ; itches all the time Allergy medication helps Ear itching feels further back ; feels like there is something draining Went to urgent care and got medication and it did not help Has eczema ; dry skin ; more itchy with season changes ; no patches Problem list and histories reviewed & adjusted, as indicated. Additional history: as documented Patient Active Problem List Diagnosis ??? CARDIOVASCULAR SCREENING; LDL GOAL LESS THAN 160 ??? Papanicolaou smear of cervix with low grade squamous intraepithelial lesion (LGSIL) ??? HSV (herpes simplex virus) infection ??? Other specified counseling ??? Depression with anxiety ??? Anxiety Past Surgical History Procedure Laterality Date ??? No history of surgery History Substance Use Topics ??? Smoking status: Former Smoker ??? Smokeless tobacco: Never Used Comment: quit smoking 2months ago ??? Alcohol Use: Yes Comment: occasionally Family History Problem Relation Age of Onset ??? Heart Father SD at age 42 ??? Depression Father ??? Cancer Maternal Grandmother cervical and uterine ??? Cancer - Breast Maternal Grandmother dx at age 62 ??? Diabetes Maternal Grandfather ??? Diabetes Paternal Grandfather ??? Cancer - Colorectal No family hx of ROS: Constitutional, HEENT, cardiovascular, pulmonary, gi and gu systems are negative, except as otherwise noted. OBJECTIVE: BP 100/68 Pulse 90 Temp(Src) 98.3 ??F (36.8 ??C) Ht 5' 6 (1.676 m) Wt 144 lb 9.6 oz (65.59 kg) BMI 23.35 kg/m2 SpO2 100% LMP 09/11/2014 (Approximate) Body mass index is 23.35 kg/(m^2). GENERAL: alert and no distress HENT: ear canals dry and slight red and TM's dull, but light reflex normal , nose and mouth without ulcers or lesions RESP: lungs clear to auscultation - no rales, rhonchi or wheezes CV: regular rate and rhythm, normal S1 S2, no S3 or S4, no murmur, click or rub, no peripheral edemaand peripheral pulses strong ABDOMEN: soft, nontender, no hepatosplenomegaly, no masses and bowel sounds normal MS: no gross musculoskeletal defects noted, no edema NEURO: Normal strength and tone, mentation intact and speech normal; CN intact II-XII PSYCH: mentation appears normal, affect normal/bright Diagnostic Test Results: Labs and MRI ASSESSMENT/PLAN: ICD-9-CM 1. Allergic rhinitis 477.9 montelukast (SINGULAIR) 10 MG tablet 2. Seasonal allergic rhinitis 477.9 montelukast (SINGULAIR) 10 MG tablet 3. Ear itching 698.9 montelukast (SINGULAIR) 10 MG tablet 4. Dizziness 780.4 OPHTHALMOLOGY ADULT REFERRAL MR Brain w/o & w Contrast CBC with platelets differential TSH with free T4 reflex Comprehensive metabolic panel Vitamin D Deficiency 5. Headache(784.0) 784.0 MR Brain w/o & w Contrast CBC with platelets differential TSH with free T4 reflex Comprehensive metabolic panel Vitamin D Deficiency 6. Eczema of both external ears 380.22 bortuprs-plpaoentq-hemakfycmjkuez (CORTISPORIN) 3.5-67168-4 otic suspension Patient Instructions Vanicream to skin for dry skin Singulair daily for allergy Cortisporin ear drops 4 drops 4 times a day for 7-10 days Labs today MRI brain [phone] to schedule Eye exam [facility] [email or web address] Poonam Rosales APRN [facility] documented in this encounter Nursing Notes Olga Alvarez LPN - 10/05/2014 8:29 AM CDT Chief Complaint Patient presents with ??? Dizziness intermittent dizzy episodes after past few months last anywhere from a couple minutes to a couple hours, also having headaches across forehead for last weeks. ??? Pharyngitis sore, itchy throat started today with ear itching Initial BP 100/68 Pulse 90 Temp(Src) 98.3 ??F (36.8 ??C) Ht 5' 6 (1.676 m) Wt 144 lb 9.6 oz(65.59 kg) BMI 23.35 kg/m2 SpO2 100% LMP 09/11/2014 (Approximate) Estimated body mass index is23.35 kg/(m^2) as calculated from the following: Height as of this encounter: 5' 6 (1.676 m). Weight as of this encounter: 144 lb 9.6 oz (65.59 kg). BP completed using cuff size: regular documented in this encounter Plan of Treatment Scheduled Referrals Name Type Priority Associated Diagnoses Order S chedule OPHTHALMOLOGY ADULT Referral Routine Dizziness Ordered: 10/05/2014 REFERRAL documented as of this encounter Procedures Procedure Name Priority Date/Time Associated Comments Diagnosis CBC WITH PLATELETS & Routine 10/05/2014 9:03 AM Dizzines s Results for this DIFFERENTIAL CDT Headache(784.0) procedure ar e in the results section. VITAMIN D DEFICIENCY Routine 10/05/2014 9:03 AM Dizzines s Results for this SCREENING CDT Headache(784.0) procedure ar e in the results section. TSH WITH FREE T4 Routine 10/05/2014 9:03 AM Dizziness Results for this REFLEX CDT Headache(784.0) procedure ar e in the results section. COMPREHENSIVE Routine 10/05/2014 9:03 AM Dizziness Results for this METABOLIC PANEL CDT Headache(784.0) procedure are in the results section. documented [...] identified. ANTELMO DAVIES MD Poonam Rosales APRN [facility] MRI ORDERABLES (ABNORMAL) Vitamin D Deficiency (10/05/2014 9:03 AM CDT) P athologist Signature Vitamin D 18 (L) 30 - 75 [facility] Deficiency ug/L [place] [facility] screening [facility] Comment: Season, race, dietary intake, and treatm ent affect the concentration of 78-qhathvz-Vccitqq D. Values may decrea se during winter months and increase during summer months. Values less than 30 ug/L may indicate Vitamin D deficiency. Vitamin D determiniation is routinely p erformed by an immunoassay specific for 25 hydroxyvitamin D3. ??If an individua l is on vitamin D2 (ergocalciferol) supplementation, please specify 25 [place] v itamin D2 and D3 level determination by LCMSMS test VITD23. Specimen Anatomical Collection Method Collection Time Receive d Time (Source) Location / / Volume Laterality Blood specimen 10/05/2014 9:03 AM 015 9:08 (specimen) CDT AM CDT Poonam Rosales APRN AUTHORIZATION NURSE LAB - BLOOD ORDERABLES Performing Organization Address City/State/ZIP [facility] Phon e Number [address] [address] [facility] (ABNORMAL) Comprehensive metabolic panel (10/05/2014 9:03 AM CDT) [facility] gist Method Time Signature Sodium 138 133 - 144 [place] mmol/L [facility] Potassium 4.2 3.4 - 5.3 [facility] mmol/L [facility] Chloride 105 94 - 109 [facility] mmol/L [facility] Carbon Dioxide 25 20 - 32 [facility] mmol/L [facility] Anion Gap 8 3 - 14 [facility] mmol/L [facility] Glucose 64 (L) 70 - 99 [facility] mg/dL [facility] Urea Nitrogen 9 7 - 30 [facility] mg/dL [facility] Creatinine 0.74 0.52 - [facility] 1.04 [facility]IN[facility] mg/dL [facility] GFR Estimate >90 >60 [place] Non GFR Calc mL/min/1. [facility]INICS 7m2 [place] GFR Estimate If >90 >60 [place] Black GFR Calc mL/min/1. CLIN ICS 7m2 [facility] Calcium 9.0 8.5 - [facility] 10.1 [facility] mg/dL [facility] Bilirubin Total 0.8 0.2 - 1.3 [facility] mg/dL [facility] Albumin 4.3 3.4 - 5.0 [facility] g/dL [facility] Protein Total 7.4 6.8 - 8.8 [facility] g/dL [facility] Alkaline 63 40 - 150 [facility] Phosphatase U/L [facility] ALT 20 0 - 50 [facility] U/L [facility] AST 9 0 - 45 [facility] U/L [facility] Specimen Anatomical Collection Method Collection Time Receive d Time (Source) Location / / Volume Laterality Blood specimen 10/05/2014 9:03 AM 9:08 (specimen) CDT AM CDT Poonam Rosales APRN AUTHORIZATION NURSE LAB - BLOOD ORDERABLES Performing Organization Address City/State/ZIP Code Phon e Number [facility] [address] [place] [address] TSH with free T4 reflex (10/05/2014 9:03 AM CDT) P athologist Signature TSH 2.87 0.40 - 4.00 [facility] mU/L [facility] Specimen Anatomical Collection Method Collection Time Receive d Time (Source) Location / / Volume Laterality Blood specimen 10/05/2014 9:03 AM 015 9:08 (specimen) CDT AM CDT Poonam Paris Connie LEWISN AUTHORIZATION NURSE LAB - BLOOD ORDERABLES Performing Organization Address City/[facility]/ZIP Code Phon e Number [facility] [address] [place] [address] CBC with platelets differential (10/05/2014 9:03 AM CDT) Patholo gist Method Time Signature WBC 5.3 4.0 - [place] 11.0 [facility] 10e9/L [place] RBC Count 4.75 3.8 - 5.2 [place] 10e12/L [facility] Hemoglobin 14.7 11.7 - [place] 15.7 g/dL [facility] Hematocrit 43.6 35.0 - [place] 47.0 % [facility] MCV 92 78 - 100 [facility] MCH 30.9 26.5 - [place] 33.0 pg [facility] MCHC 33.7 31.5 - [place] 36.5 g/dL [facility] RDW 12.9 10.0 - [place] 15.0 % [facility] Platelet Count 293 150 - 450 [place] 10e9/L [facility] Diff Method Automated [facility] % Neutrophils 43.7 % [facility] [address] % Lymphocytes 41.2 % [facility] % Monocytes 11.7 % [facility] % Eosinophils 2.8 % [facility] % Basophils 0.6 % [facility] Absolute 2.3 1.6 - 8.3 [place] Neutrophil 10e9/L [facility] Absolute 2.2 0.8 - 5.3 [place] Lymphocytes 10e9/L [facility] Absolute 0.6 0.0 - 1.3 [place] Monocytes 10e9/L [facility] [place] Absolute 0.2 0.0 - 0.7 [place] Eosinophils 10e9/L [facility] Absolute 0.0 0.0 - 0.2 [place] Basophils 10e9/L [facility] Specimen Anatomical Collection Method Collection Time Receive d Time (Source) Location / / Volume Laterality Blood specimen 10/05/2014 9:03 AM 015 9:08 (specimen) CDT AM CDT Poonam Rosales APRN AUTHORIZATION NURSE LAB - BLOOD ORDERABLES Performing Organization Address City/State/ZIP Code Phon e Number [facility] [address] [place], [place] [address] [address] documented in this encounter Visit Diagnoses Diagnosis Allergic rhinitis - Primary Allergic rhinitis, cause unspecified Seasonal allergic rhinitis Allergic rhinitis, cause unspecified Ear itching Unspecified pruritic disorder Dizziness Dizziness and giddiness Headache(784.0) Headache Eczema of both external ears Dizziness Dizziness and giddiness Headache(784.0) Headache documented in this encounter Care Teams Other Sports Official Relationship Specialty Start Date End Date Ronaldo-Sarah Doshi PA-C PCP - General Family Practice 10/21/11 [id number] [place] [address] documented as of this encounter
--- OUTSIDE RECORDS SUMMARY | 2022-01-03 08:25 | XMS_ITS | Encounter Summary ---
:1985 Author Organization [place] Address [facility] [place] [address] Care Team Providers Name Role Phone Leland Montgomery PA-C Primary Care Provider [phone] Reason for Visit Reason Comments Physical pap, discuss control Encounter Details Date Type Department Care Team Description 10/21/2011 [facility] care [facility] (Primary Dx); [facility] Leland Aguilar PA-C Screen for STD (sexually transmitted dis ease); [address] [facility] [id number] [place] [address] control; [place], [place] Contraception management [phone] Social History Tobacco Use Types Packs/Day Years Used Date Current Every Day Smoker Comments: Pt. smokes 3 cigarettes daily Alcohol [...] Sign Reading Time Taken Comments Blood Pressure 99/60 10/21/2011 9:39 AM CDT Pulse 75 10/21/2011 9:39 AM CDT Temperature 36.4 ??C (97.5 ??F) 10/21/2011 9:39 AM CDT Respiratory Rate - - Oxygen Saturation 99% 10/21/2011 9:39 AM CDT Inhaled Oxygen Concentration - - Weight 66.5 kg (146 lb 11.2 oz) 10/21/2011 9:39 AM CDT Height 165.7 cm (5' 5.25) 10/21/2011 9:39 AM CDT Body Mass Index 24.23 10/21/2011 9:39 AM CDT documented in this encounter Patient Instructions Patient InstructionsLeland Montgomery PA-C - 10/21/2011 9:44 AM CDT Images from the original note were not included. Home Back SP Please follow-up for 2nd depo injection in 1 month November 21, 2011 Patient Education ?? Medroxyprogesterone Acetate Oral tablet ?? Medroxyprogesterone Acetate Suspension for injection [Contraception] ?? Medroxyprogesterone Acetate Suspension for injection [Malignancy] Medroxyprogesterone Acetate Suspension for injection [Contraception] What is this medicine? MEDROXYPROGESTERONE (me DROX ee proe LIOR te maru) contraceptive injections prevent . They provide effective control for 3 months. Depo-subQ Provera 104 is also used for treating pain related to endometriosis. This medicine may be used for other purposes; ask your health care provider or pharmacist if you have questions. What should I tell my health care provider before I take this medicine? They need to know if you have any of these conditions: ?? frequently drink alcohol ?? asthma ?? blood vessel disease or a history of a blood clot in the lungs or legs ?? bone disease such as osteoporosis ?? breast cancer ?? diabetes ?? eating disorder (anorexia nervosa or bulimia) ?? high blood pressure ?? HIV infection or AIDS ?? kidney disease ?? liver disease ?? mental depression ?? migraine ?? seizures (convulsions) ?? stroke ?? tobacco smoker ?? vaginal bleeding ?? an unusual or allergic reaction to medroxyprogesterone, other hormones, medicines, foods, dyes, or preservatives ?? or trying to get ?? breast-feeding How should I use this medicine? Depo-Provera Contraceptive injection is given into a muscle. Depo-subQ Provera 104 injection is given under the skin. These injections are given by a health daycare teacher. You must not be before getting an injection. The injection is usually given during the first 5 days after the start of a menstrual period or 6 weeks after delivery of a baby. Talk to your solid fiber paster operator regarding the use of this medicine in children. Special care may be needed. These injections have been used in female children who have started having menstrual periods. Overdosage: If you think you have taken too much of this medicine contact a poison control center [facility] room at once. NOTE: This medicine is only for you. Do not share this medicine with others. What if I miss a dose? Try not to miss a dose. You must get an injection once every 3 months to maintain control. If you cannot keep an appointment, call and reschedule it. If you wait longer than 13 weeks between Depo-Provera contraceptive injections or longer than 14 weeks between Depo-subQ Provera 104 injections, you could get . Use another method for control if you miss your appointment. You may also need a test before receiving another injection. What may interact with this medicine? Do not take this medicine with any of the following medications: ?? bosentan This medicine may also interact with the following medications: ?? aminoglutethimide ?? antibiotics or medicines for infections, especially rifampin, rifabutin, rifapentine, and griseofulvin ?? aprepitant ?? barbiturate medicines such as phenobarbital or primidone ?? bexarotene ?? carbamazepine ?? medicines for seizures like ethotoin, felbamate, oxcarbazepine, phenytoin, topiramate ?? modafinil ?? Betty's wort This list may not describe all possible interactions. Give your health care provider a list of all the medicines, herbs, non-prescription drugs, or dietary supplements you use. Also tell them if you smoke, drink alcohol, or use illegal drugs. Some items may interact with your medicine. What should I watch for while using this medicine? This drug does not protect you against HIV infection (AIDS) or other sexually transmitted diseases. Use of this product may cause you to lose calcium from your bones. Loss of calcium may cause weak bones (osteoporosis). Only use this product for more than 2 years if other forms of control are not right for you. The longer you use this product for control the more likely you will be at risk for weak bones. Ask your health daycare teacher how you can keep strong bones. You may have a change in bleeding pattern or irregular periods. Many females stop having periods while taking this drug. If you have received your injections on time, your chance of being is very low. If you think you may be , see your health daycare teacher as soon as possible. Tell your health daycare teacher if you want to get within the next year. The effect of this medicine may last a long time after you get your last injection. What side effects may I notice from receiving this medicine? Side effects that you should report to your doctor or health daycare teacher as soon as possible: ?? allergic reactions like skin rash, itching or hives, swelling of the face, lips, or tongue ?? breast tenderness or discharge ?? breathing problems ?? changes in vision ?? depression ?? feeling faint or lightheaded, falls ?? fever ?? pain in the abdomen, chest, groin, or leg ?? problems with balance, talking, walking ?? unusually weak or tired ?? yellowing of the eyes or skin Side effects that usually do not require medical attention (report to your doctor or health daycare teacher if they continue or are bothersome): ?? acne ?? fluid retention and swelling ?? headache ?? irregular periods, spotting, or absent periods ?? temporary pain, itching, or skin reaction at site where injected ?? weight gain This list may not describe all possible side effects. Call your doctor for medical advice about sideeffects. You may report side effects to FDA at 8-049-JRG-6685. Where should I keep my medicine? This does not apply. The injection will be given to you by a health daycare teacher. NOTE:This sheet is a summary. It may not cover all possible information. If you have questions aboutthis medicine, talk to your doctor, pharmacist, or health care provider. Copyright?? 2011 Gold Standard documented in this encounter Progress Renee Hammond - 10/21/2011 9:44 AM CDT Images from the original note were not included. SUBJECTIVE: CC: Rhonda Kirkland is an 25 year old woman who presents for preventive health visit. Besides routine health maintenance, she would like to discuss control. Healthy Habits: Do you get at least three servings of calcium containing foods daily (dairy, green leafy vegetables,etc.)? yes Outside of work or daily activities, how many days per week do you exercise for 30 minutes or longer? 3 times a week Dietary Guidelines for Americans, 2010 USDA's MyPlate Estimated Body mass index is 24.23 kg/(m^2) as calculated from the following: Height as of this encounter: 5' 5.25(1.657 m). Weight as of this encounter: 146 lb 11.2 oz(66.543 kg). Have you had an eye exam in the past two years? no Do you see a dentist twice per year? yes Staff Signature db Today's PHQ-2 Score: 0 Abuse: Current or Past(Physical, Sexual or Emotional)- No Do you feel safe in your environment - Yes History Substance Use Topics ??? Smoking status: Current Everyday Smoker ??? Smokeless tobacco: Not on file Comment: Pt. smokes 3 cigarettes daily ??? Alcohol Use: Yes occasionally sometimes on Saturdays - social Last Mammo:No results found. Last lipid profile: Total Cholesterol: No results found for this basename: chol LDL Cholesterol: No results found for this basename: ldl HDL Cholesterol: No results found for this basename: hdl Reviewed orders with patient. Reviewed health maintenance and updated orders accordingly - Yes Staff Signature db History of abnormal Pap smear: Yes - updated in Problem List and Health Maintenance accordingly All Histories reviewed and updated in [facility]. ROS: C: NEGATIVE for fever, chills, change [...] NEGATIVE for changes in mood or affect OBJECTIVE: BP 99/60 Pulse 75 Temp(Src) 97.5 ??F (36.4 ??C) (Oral) Ht 5' 5.25 (1.657 m) Wt 146 lb 11.2 oz (66.543 kg) BMI 24.23 kg/m2 SpO2 99% LMP 09/30/2011 GENERAL APPEARANCE: healthy, alert and no distress [...] care facility (primary encounter diagnosis) Comment: Plan: PAP IMAGED THIN LAYER SCREEN V74.5H Screen for STD (sexually transmitted disease) Comment: Plan: Chlamydia trachomatis PCR, Neisseria gonorrhoeae PCR V25.9D control Comment: Plan: HCG qualitative, urine V25.9AG Contraception management Comment: Risks, benefits, side effects and intended purposes discussed. Plan: DEPO PROVERA 150 MG, medroxyPROGESTERone (DEPO-PROVERA) 150 MG/ML injection, DEPO PROVERA 150 MG, INJECTION INTRAMUSCULAR OR SUB-Q COUNSELING: regular exercise healthy diet/nutrition vision screening hearing screening contraception safe sex practices/STD prevention (riki)menopause management reports that she has been smoking. She does not have any smokeless tobacco history on file. Tobacco Cessation Action Plan: Information offered: Patient not interested at this time Body mass index is 24.23 kg/(m^2). Patient Instructions Home Back SP Please follow-up for 2nd depo injection in 1 month November 21, 2011 Patient Education ?? Medroxyprogesterone Acetate Oral tablet ?? Medroxyprogesterone Acetate Suspension for injection [Contraception] ?? Medroxyprogesterone Acetate Suspension for injection [Malignancy] Medroxyprogesterone Acetate Suspension for injection [Contraception] What is this medicine? MEDROXYPROGESTERONE (me DROX ee proe LIOR te maru) contraceptive injections prevent . They provide effective control for 3 months. Depo-subQ Provera 104 is also used for treating pain related to endometriosis. This medicine may be used for other purposes; ask your health care provider or pharmacist if you have questions. What should I tell my health care provider before I take this medicine? They need to know if you have any of these conditions: ?? frequently drink alcohol ?? asthma ?? blood vessel disease or a history of a blood clot in the lungs or legs ?? bone disease such as osteoporosis ?? breast cancer ?? diabetes ?? eating disorder (anorexia nervosa or bulimia) ?? high blood pressure ?? HIV infection or AIDS ?? kidney disease ?? liver disease ?? mental depression ?? migraine ?? seizures (convulsions) ?? stroke ?? tobacco smoker ?? vaginal bleeding ?? an unusual or allergic reaction to medroxyprogesterone, other hormones, medicines, foods, dyes, or preservatives ?? or trying to get ?? breast-feeding How should I use this medicine? Depo-Provera Contraceptive injection is given into a muscle. Depo-subQ Provera 104 injection is given under the skin. These injections are given by a health daycare teacher. You must not be before getting an injection. The injection is usually given during the first 5 days after the start of a menstrual period or 6 weeks after delivery of a baby. Talk to your solid fiber paster operator regarding the use of this medicine in children. Special care may be needed. These injections have been used in female children who have started having menstrual periods. Overdosage: If you think you have taken too much of this medicine contact a poison control center [facility] room at once. NOTE: This medicine is only for you. Do not share this medicine with others. What if I miss a dose? Try not to miss a dose. You must get an injection once every 3 months to maintain control. If you cannot keep an appointment, call and reschedule it. If you wait longer than 13 weeks between Depo-Provera contraceptive injections or longer than 14 weeks between Depo-subQ Provera 104 injections, you could get . Use another method for control if you miss your appointment. You may also need a test before receiving another injection. What may interact with this medicine? Do not take this medicine with any of the following medications: ?? bosentan This medicine may also interact with the following medications: ?? aminoglutethimide ?? antibiotics or medicines for infections, especially rifampin, rifabutin, rifapentine, and griseofulvin ?? aprepitant ?? barbiturate medicines such as phenobarbital or primidone ?? bexarotene ?? carbamazepine ?? medicines for seizures like ethotoin, felbamate, oxcarbazepine, phenytoin, topiramate ?? modafinil ?? Betty's wort This list may not describe all possible interactions. Give your health care provider a list of all the medicines, herbs, non-prescription drugs, or dietary supplements you use. Also tell them if you smoke, drink alcohol, or use illegal drugs. Some items may interact with your medicine. What should I watch for while using this medicine? This drug does not protect you against HIV infection (AIDS) or other sexually transmitted diseases. Use of this product may cause you to lose calcium from your bones. Loss of calcium may cause weak bones (osteoporosis). Only use this product for more than 2 years if other forms of control are not right for you. The longer you use this product for control the more likely you will be at risk for weak bones. Ask your health daycare teacher how you can keep strong bones. You may have a change in bleeding pattern or irregular periods. Many females stop having periods while taking this drug. If you have received your injections on time, your chance of being is very low. If you think you may be , see your health daycare teacher as soon as possible. Tell your health daycare teacher if you want to get within the next year. The effect of this medicine may last a long time after you get your last injection. What side effects may I notice from receiving this medicine? Side effects that you should report to your doctor or health daycare teacher as soon as possible: ?? allergic reactions like skin rash, itching or hives, swelling of the face, lips, or tongue ?? breast tenderness or discharge ?? breathing problems ?? changes in vision ?? depression ?? feeling faint or lightheaded, falls ?? fever ?? pain in the abdomen, chest, groin, or leg ?? problems with balance, talking, walking ?? unusually weak or tired ?? yellowing of the eyes or skin Side effects that usually do not require medical attention (report to your doctor or health daycare teacher if they continue or are bothersome): ?? acne ?? fluid retention and swelling ?? headache ?? irregular periods, spotting, or absent periods ?? temporary pain, itching, or skin reaction at site where injected ?? weight gain This list may not describe all possible side effects. Call your doctor for medical advice about sideeffects. You may report side effects to FDA at 2-476-SQX-8233. Where should I keep my medicine? This does not apply. The injection will be given to you by a health daycare teacher. NOTE:This sheet is a summary. It may not cover all possible information. If you have questions aboutthis medicine, talk to your doctor, pharmacist, or health care provider. Copyright?? 2010 Gold Standard documented in this encounter Nursing Notes 10/21/2011 9:30 AM CDT >> RENEE Narayan October 21, 2011 9:46 AM Health maintenance Pt. Wants to wait on tetanus to make sure insurance covers it Renee Gold ONLINE EDITOR >> RENEE Narayan October 21, 2011 9:45 AM Patient presents with: Physical - pap, discuss control Initial BP 99/60 Pulse 75 Temp(Src) 97.5 ??F (36.4 ??C) (Oral) Ht 5' 5.25 (1.657 m) Wt 146 lb 11.2 oz (66.543 kg) BMI 24.23 kg/m2 SpO2 99% LMP 09/30/2011 Estimated Body mass index is 24.23 kg/(m^2) as calculated from the following: Height as of this encounter: 5' 5.25(1.657 m). Weight as of this encounter: 146 lb 11.2 oz(66.543 kg).. BP completed using cuff size: regular Renee Gold ONLINE EDITOR Health maintenance Pt. Advised due of tetanus shot Renee Gold ONLINE EDITOR documented in this encounter Plan of Treatment Not on filedocumented as of this encounter Procedures Procedure Name Priority Date/Time Associated Diagnosis Comme nts NEISSERIA Routine 10/21/2011 11:32 Screen for STD Results f or this GONORRHOEAE PCR AM CDT (sexually procedure ar e in transmitted disease) the res ults section. CHLAMYDIA Routine 10/21/2011 11:32 Screen for STD Results f or this TRACHOMATIS PCR AM CDT (sexually procedure ar e in transmitted disease) the res ults section. PAP IMAGED THIN Routine 10/21/2011 11:04 Routine general Resul ts for this LAYER SCREEN AM CDT medical examination procedur e are in at a health care the results facility section. HCG QUALITATIVE Routine 10/21/2011 10:14 control Results for this URINE AM CDT procedure are i n the results section. documented in this encounter Results Neisseria gonorrhoeae PCR (10/21/2011 11:32 AM CDT) Component Value Ref Test Analysis Performed At [facility] gist Range Method Time Signature Specimen [facility] LAB N Gonorrhea Negative for N. gonorrhoeae rRNA by cereal maker mediated amplification. [facility] PCR A negative result by transc ription mediated amplification does not preclude the MICROBIOLOGY presence of N. gonorrhoeae infection because re sults are dependent on proper and adequate collection, absence of inhibitors, and suffici ent rRNA to be detected. Specimen Anatomical Collection Method Collection Time Receive d Time (Source) Location / / Volume Laterality Cervical swab 10/21/2011 11:32 10/21/2011 (specimen) AM CDT 11:33 AM CDT Leland Montgomery PA-C LAB - MICRO GENERAL OR DERABLES Performing Organization Address City/State/ZIP Code Phon e Number [facility] [address] [place], [place] [phone] [place] [address] LAB [facility] MICROBIOLOGY Chlamydia trachomatis PCR (10/21/2011 11:32 AM CDT) Component Value Ref Test Analysis Performed At [facility] Method Time Signature Specimen [facility] LAB Chlamydia Negative for C. trachomatis rRNA by cereal maker mediated amplification. [facility] Trachomatis A negative result by transc ription mediated amplification does not preclude the MICROBIOLOGY PCR presence of C. trachomatis infection because results are dependent on proper and adequate collection, absence of inhibitors, and suffici ent rRNA to be detected. Specimen Anatomical Collection Method Collection Time Receive d Time (Source) Location / / Volume Laterality Cervical swab 10/21/2011 11:32 10/21/2011 (specimen) AM CDT 11:33 AM CDT Leland Montgomery PA-C LAB - MICRO GENERAL OR DERABLES Performing Organization Address City/State/ZIP Code Phon e Number [id number] [place] [address] LAB [facility] MICROBIOLOGY (ABNORMAL) PAP IMAGED THIN LAYER SCREEN (10/21/2011 11:04 AM CDT) Component Value Ref Test Analysis Performed At [facility] Black Drumm Range Method Time Signature PAP LSIL (A) COPATH Copath Report COPATH Patient Name: RHONDA KIRKLAND MR#: [id number] Specimen #: [id number] Collected: 10/21/2011 Received: 10/22/2011 Reported: 10/27/2011 07:02 Ordering Phy(s): LELAND MONTGOMERY SPECIMEN/STAIN PROCESS: Pap imaged thin layer prep screening (Surepath, FocalPoint w ith guided screening) ? Pap-Cyto x 1, Reflex HPV x 1 SOURCE: Cervical, endocervical ---- Pap imaged thin layer prep screening (Surepath, FocalPoint with guided screening) SPECIMEN ADEQUACY: Satisfactory for evaluation. -Transformation zone component present. CYTOLOGIC INTERPRETATION: Epithelial Cell Abnormality: ??Squamous Cell: ??Low-grade sq uamous intraepithelial lesion (LSIL) encompassing: ??HPV/ mild dysp lasia/ ELZBIETA 1. Electronically signed out by: Mauri Pisano M.D. [facility] CLINICAL HISTORY: LMP: 09/30/11 Previous abnormal pap: HSIL Date of Last Pap: 06/19/08, Papanicolaou Test Limitations: ??Cervical cytology is a scre ening test with limited sensitivity; regular screening is critical for cancer prevention; Pap tests are primarily effective for the diagnosis/prevention of squamous cell carcinoma, not adenoca rcinomas or other cancers. TESTING LAB LOCATION: [facility] [address] [place], [place] ??[address] COLLECTION SITE: Client: ??[facility] Location: [facility] (R) Specimen (Source) Anatomical Collection Method Collection Time Re ceived Time Location / / Volume Laterality Cytologic 10/21/2011 11:04 10/22/2011 material AM CDT 10:45 AM CDT (specimen) Leland Montgomery PA-C LAB - OPTIME CLINICAL SPECIMEN Performing Organization Address City/State/ZIP Code Phon e Number COPATH HCG qualitative, urine (10/21/2011 10:14 AM CDT) P athologist Signature HCG Qual Urine Negative NEG [facility] LAB Specimen Anatomical Collection Method Collection Time Receive d Time (Source) Location / / Volume Laterality Urine specimen 10/21/2011 10:14 2 (specimen) AM CDT 10:16 AM CDT Leland Montgomery PA-C LAB - URINE ORDERABLES Performing Organization Address City/[facility]/ZIP Code Phon e Number [facility] [address] [place] [address] [facility] documented in this encounter Visit Diagnoses Diagnosis Routine general medical examination at a health care facility - Primary Screen for STD (sexually transmitted dis ease) Screening examination for venereal disea se control Unspecified contraceptive management Contraception management Unspecified contraceptive management documented in this encounter Care Teams Movable Bulkhead Installer Relationship Specialty Start Date End Date Leland Montgomery PA-C PCP - General Family Practice 10/21/11 [address] [place] [address] documented as of this encounter
--- OUTSIDE RECORDS SUMMARY | 2022-01-03 08:25 | XMS_ITS | Encounter Summary ---
:1985 Author Organization [place] Address [address] [place] [address] Care Team Providers Name Role Phone Sarah Montgomery PA-C Primary Care Provider [phone] Encounter Details Date Type Department Care Team Description 10/06/2014 Orders Only [facility] Poonam Rosales Vitamin D deficiency Clinic [place] [employer] (Primary Dx) [address] [place] [id number] [phone] Social History Tobacco Use Types Packs/Day Years [...] as of this encounter Visit Diagnoses Diagnosis Vitamin D deficiency - Primary Unspecified vitamin D deficiency documented in this encounter Care Teams Health Information Specialist Relationship Specialty Start Date End Date Sarah Montgomery PA-C PCP - General Family Practice 10/21/11 [id number] [place] [address] documented as of this encounter
--- OUTSIDE RECORDS SUMMARY | 2022-01-03 08:25 | XMS_ITS | Encounter Summary ---
:1985 Author Organization [facility] Address [address] [place] [address] Care Team Providers Name Role Phone Sarah Montgomery PA-C Primary Care Provider Reason for Visit Reason Onset Date Comments Nurse Advice Line 12/07/2012 Genital herpes Encounter Details Date Type Department Care Team Description 12/07/2012 Telephone [facility] Valentina, Nurse Advice Line [facility] Sarah Aguilar PA-C (Genital herpes ) [id number] [place] [id number] [place] [id number] [phone] Social History Tobacco Use Types Packs/Day Years [...] Notes Telephone Encounter - Rachell Peña - 12/07/2012 12:51 PM CDT Informed patient of RX approval. Patient scheduled future appt 12/13. Rachell Peña Billiard Table Repairer Telephone Encounter - Corazon Wellington - 12/07/2012 11:54 AM CDT Left message for patient to call the clinic, please give her the message below. Corazon Wellington Billiard Table Repairer Telephone Encounter - Sarah Montgomery PA-C - 12/07/2012 11:47 AM CDT Will refill but haven't seen her in over a year. Please advise she come in for routine health maintenance Telephone Encounter - Annette White - 12/07/2012 11:19 AM CDT Add note: Current regimen she is on now valACYclovir (VALTREX) 500 MG tablet 6 tablet 3 01/19/2012 Sig: Take 1 tablet by mouth 2 times daily.Class: E-Prescribe Route: Oral Order: [id number] [employer] Genital herpes simplex, Initial and recurrent episodes - HIV infection: 1 g ORALLY twice daily for 5to 14 days Telephone Encounter - Annette White - 12/07/2012 11:10 AM CDT Pt calling and she is on the 3rd day of her Valtrex for a genital outbreak. She said it is better but not healing as fast as they have in the past. Pt is wondering if she can get an extension on the meds. She is out of refills. This script requires a PA so we would need to get on this lyndsay. Will refer to pcp and BROADCAST OPERATIONS DIRECTOR MD Please advise. Thanks! Annette White RN. documented in this encounter Plan of Treatment Not on filedocumented as of this encounter Visit Diagnoses Diagnosis Genital herpes - Primary Recurrent herpes simplex Herpes simplex without mention of compli cation documented in this encounter Care Teams Edging Machine Feeder Relationship Specialty Start Date End Date Sarah Montgomery PA-C PCP - General Family Practice 10/21/11 [address] [place] [address] documented as of this encounter
--- OUTSIDE RECORDS SUMMARY | 2022-01-03 08:25 | XMS_ITS | Encounter Summary ---
:1985 Author Organization [facility] Address [address] [place] [address] Care Team Providers Name Role Phone Morris Murray MD Primary Care Provider Unavailable Reason for Visit Reason Onset Date Comments Patient Request for Note/Letter 03/14/2009 Due for repeat pap/colpo Encounter Details Date Type Department Care Team Description 03/14/2009 Telephone [facility] Morris Murray Patient Re quest for Clinic Kiana Diallo MD Note/Letter (Due for [address] repeat pap/colpo) [place] [id number] Social History Tobacco Use Types Packs/Day Years [...] this encounter Miscellaneous Notes Telephone Encounter - Mindy Reyes - 05/16/2009 3:47 PM CST 05/16/09 - Rec'd Unclaimed certified letter card back. Forwarded to [employer] Telephone Encounter - Saumya Shaver - 04/23/2009 8:18 AM CST Certified pap reminder letter sent to pt. If no response within 2 weeks of receipt of signature card, resolve episode and close encounter. Saumya Shaver, RN [facility] Telephone Encounter - Poonam Begum RN - 03/14/2009 12:03 PM CDT Pt due for 6 month repeat pap and colpo. Unable to reach pt by phone, no msg machine. Letter sent topt to call to schedule appt. Will send certified letter in two weeks if no response. Poonam Begum RN documented in this encounter Plan of Treatment Not on filedocumented as of this encounter Visit Diagnoses Not on filedocumented in this encounter Care Teams Mission Planner Relationship Specialty Start Date End Date Morris Murray MD PCP - General 06/24/0410/19 documented as of this encounter
--- OUTSIDE RECORDS SUMMARY | 2022-01-03 08:25 | XMS_ITS | Encounter Summary ---
:1985 Author Organization [facility] Address [address] [place] [address] Care Team Providers Name Role Phone Sarah Montgomery PA-C Primary Care Provider [phone] Reason for Visit Reason Comments Urinary Problem Encounter Details Date Type Department Care Team Description 03/03/2014 Office Visit [facility] Thelma Doshi Dysuria ( Primary Dx); [facility] [place] [facility] [place] HOUSEPERSON Vaginal burning [address] [phone] [place], [place] [phone] Social History Tobacco Use Types Packs/Day Years [...] Sign Reading Time Taken Comments Blood Pressure 118/68 03/03/2014 3:24 PM CDT Pulse 96 03/03/2014 3:24 PM CDT Temperature 36.8 ??C (98.3 ??F) 03/03/2014 3:24 PM CDT Respiratory Rate 16 03/03/2014 3:24 PM CDT Oxygen Saturation 98% 03/03/2014 3:24 PM CDT Inhaled Oxygen Concentration - - Weight 67.1 kg (148 lb) 03/03/2014 3:24 PM CDT Height 167.6 cm (5' 6) 03/03/2014 3:24 PM CDT Body Mass Index 23.89 03/03/2014 3:24 PM CDT documented in this encounter Progress Notes Thelma Doshi, [place] - 03/03/2014 3:19 PM CDT SUBJECTIVE: Rhonda Tamayo is a 28 year old female who presents to clinic today for the following health issues: URINARY TRACT SYMPTOMS ?? Duration: one day ?? Description dysuria and frequency ?? Intensity: moderate ?? Accompanying signs and symptoms: Fever/chills: no Flank pain no Nausea and vomiting: no Vaginal symptoms: none Abdominal/Pelvic Pain: no ?? History History of frequent UTI's: YES, not for a long time, but did have a bad kidney infection at one point and comes in early with any symptoms History of kidney stones: no Sexually Active: YES, no new partners, GC negative 02/15/14 and pap NIL Possibility of : Don't Know ?? Precipitating or alleviating factors: None ?? Therapies tried and outcome: cranberry juice and increased fluids Outcome: no help Also has sensitive skin and just feels kind of hot Problem list and histories reviewed & adjusted, as indicated. Additional history: as documented Labs reviewed in EPIC ROS: Constitutional, HEENT, cardiovascular, pulmonary, gi and gu systems are negative, except as otherwise noted. OBJECTIVE: BP 118/68 Pulse 96 Temp(Src) 98.3 ??F (36.8 ??C) (Oral) Resp 16 Ht 5' 6 (1.676 m) Wt 148 lb (67.132 kg) BMI 23.9 kg/m2 SpO2 98% LMP 01/19/2014 ? No Body mass index is 23.9 kg/(m^2). GENERAL APPEARANCE: healthy, alert and no distress EYES: Eyes grossly normal to inspection and conjunctivae and sclerae normal RESP: Respiratory rate regular and breathing easily CV: No abnormal color and extremities warm ABDOMEN: soft, nontender (female): no cva tenderness, self collected wet prep SKIN: no suspicious lesions or rashes Diagnostic test results: Results for orders placed in visit on 03/03/14 (from the past 24 hour(s)) UA MACROSCOPIC WITH REFLEX TO MICROSCOPIC AND CULTURE Result Value Range Color Urine Yellow Appearance Urine Clear Glucose Urine Negative NEG mg/dL Bilirubin Urine Negative NEG Ketones Urine Negative NEG mg/dL Specific [place] Urine 1.010 1.003 - 1.035 Blood Urine Negative NEG pH Urine 7.0 5.0 - 7.0 pH Protein Albumin Urine Negative NEG mg/dL Urobilinogen Urine 0.2 0.2 - 1.0 EU/dL Nitrite Urine Negative NEG Leukocyte Esterase Urine Negative NEG Source Midstream Urine WET PREP Result Value Range Specimen Description Vagina Wet Prep Value: No Trichomonas seen No clue cells seen No yeast seen Micro Report Status FINAL 03/03/2014 ASSESSMENT/PLAN: ICD-9-CM 1. Dysuria 788.1 *UA reflex to Microscopic and Culture 2. Vaginal burning 625.8 Wet prep negative ua and wet prep today, no known etiology for her symptoms which she mostly describes as feeling hot. Discussed std prevention, she has not had unprotected intercourse so did not do HIV or RPR,no new partners, discussed prevention of urinary and vaginal infections, try water based lubricationfor comfort Follow up with Provider - I discussed above diagnosis and plan and all questions were answered. Return to the clinic if not improving, worsening, or any new fevers, signs or symptoms. Thelma Doshi NP [facility] documented in this encounter Nursing Notes Sushil Ford, FINANCIAL DEALERS - 03/03/2014 3:26 PM CDT Chief Complaint Patient presents with ??? Urinary Problem Initial BP 118/68 Pulse 96 Temp(Src) 98.3 ??F (36.8 ??C) (Oral) Ht 5' 6 (1.676 m) Wt 148 lb(67.132 kg) BMI 23.9 kg/m2 SpO2 98% LMP 01/19/2014 ? No Estimated body mass index is 23.9 kg/(m^2) as calculated from the following: Height as of this encounter: 5' 6 (1.676 m). Weight as of this encounter: 148 lb (67.132 kg). BP completed using cuff size: regular Sushil Ford CMA documented in this encounter Plan of Treatment Not on filedocumented as of this encounter Procedures Procedure Name Priority Date/Time Associated Comments Diagnosis WET PREPARATION Routine 03/03/2014 3:44 PM Vaginal burning Res ults for this CDT procedure are i n the results section. UA MACROSCOPIC WITH Routine 03/03/2014 3:22 PM Dysuria Re sults for this REFLEX TO MICROSCOPIC CDT proced ure are in AND CULTURE the results section. documented in this encounter Results Wet prep (03/03/2014 3:44 PM CDT) [facility] g[facility] Method Time Signature Specimen Vagina [facility] Wet Prep No Trichomonas seen [place] No clue cells seen [facility] No yeast seen [place] Micro Report FINAL [place] Status 03/03/2014 [facility] Specimen Anatomical Collection Method Collection Time Receive d Time (Source) Location / / Volume Laterality 03/03/2014 3:44 PM 4 3:49 CDT PM CDT Thelma Doshi APRN [facility]SEPERSON LAB - MICRO GENERAL ORDERAB LES Performing Organization Address City/State/ZIP Code Phon e Number [facility] [id number] [place], [place] [id number] *UA reflex to Microscopic and Culture (03/03/2014 3:22 PM CDT) Patholo gist Method Time Signature Color Urine Yellow [facility] Appearance Urine Clear [facility] Glucose Urine Negative NEG mg/dL [facility] Bilirubin Urine Negative NEG [facility] Ketones Urine Negative NEG mg/dL [facility] Specific [place] 1.010 1.003 - [place] Urine 1.035 [facility] Blood Urine Negative NEG [facility] pH Urine 7.0 5.0 - 7.0 [place] pH [facility] Protein Albumin Negative NEG mg/dL [place] Urine [facility] Urobilinogen 0.2 0.2 - 1.0 [place] Urine EU/dL [facility] Nitrite Urine Negative NEG [facility] Leukocyte Negative NEG [place] Esterase Urine [facility] Source Midstream [place] Urine [facility] Specimen Anatomical Collection Method Collection Time Receive d Time (Source) Location / / Volume Laterality Urine specimen 03/03/2014 3:22 PM 014 3:27 (specimen) CDT PM CDT Thelma Doshi APRN, CNP LAB - URINE ORDERABLES Performing Organization Address City/State/ZIP Code Phon e Number [facility] [id number] [place] [address] documented in this encounter Visit Diagnoses Diagnosis Dysuria - Primary Vaginal burning Other specified symptom associated with female genital organs documented in this encounter Care Teams Liquid Compounder Relationship Specialty Start Date End Date Ronaldo-Sarah Doshi PA-C PCP - General Family Practice 10/21/11 [address] [place] [address] documented as of this encounter
--- OUTSIDE RECORDS SUMMARY | 2022-01-03 08:25 | XMS_ITS | Encounter Summary ---
:1985 Author Organization [facility] Address [address] [place] [address] Care Team Providers Name Role Phone Sarah Montgomery PA-C Primary Care Provider [phone] Reason for Visit Reason Comments Allied Health Visit depo Encounter Details Date Type Department Care Team Description 11/24/2011 Allied Health/Nurse Health [facility] ied Health [facility] [address] [place] [phone] Social History Tobacco Use Types Packs/Day Years [...] on file documented as of this encounter Nursing Notes 11/24/2011 9:00 AM CDT >> GABI MARVIN [facility] Nov 24, 2011 9:08 AM The following medication was given: MEDICATION: Depo Provera 150mg ROUTE: IM SITE: Deltoid - Right DOSE: 1ml LOT #: [id number] Blueprint Maker: [employer] EXPIRATION DATE: 07/2014 Next injection due February 08-February 22. Card given to patient Gabi Marvin EMPLOYEE COMMUNICATIONS INTERN documented in this encounter Plan of Treatment Not on filedocumented as of this encounter Visit Diagnoses Diagnosis Contraception management - Primary Unspecified contraceptive management documented in this encounter Care Teams Eco Industrial Development Consultant Relationship Specialty Start Date End Date Sarah Montgomery PA-C PCP - General Family Practice 10/21/11 [address] [place] [address] documented as of this encounter
--- OUTSIDE RECORDS SUMMARY | 2022-01-03 08:25 | XMS_ITS | Encounter Summary ---
:1985 Author Organization [facility] Address [address] [place] [address] Care Team Providers Name Role Phone Sonny Murray MD Primary Care Provider Unavailable Encounter Details Date Type Department Care Team Description 09/01/2008 Office Visit [facility] Sonny MurrayIL on PA P [facility] MD Yoel (Primary Dx) [place] [address] [place] [address] Social History Tobacco Use Types [...] Sign Reading Time Taken Comments Blood Pressure 98/60 09/01/2008 3:22 PM CDT Pulse - - Temperature - - Respiratory Rate - - Oxygen Saturation - - Inhaled Oxygen Concentration - - Weight 64.8 kg (142 lb 12.8 oz) 09/01/2008 3:22 PM CDT Height - - Body Mass Index 23.05 07/13/2008 2:15 PM PROTOTYPE FABRICATOR documented in this encounter Progress Notes Sonny Murray - 09/01/2008 3:59 PM CDT SUBJECTIVE:: Rhonda Kirkland, is a 22 year old female, who had a recent HGSIL pap. negative prior history of abnormal pap.Here today for colposcopy. Discussed indication, risks of infection and bleeding. Procedure: Cervix is stained with acetic acid and veiwed colposcopically. Squamocolumner junction is visualized in it's entirity. acetowhite lesion(s) noted at 6 o'clock and biopsied at the 6:00 position. Endocervical curretage Done Impression: HPV Plan: Await the results of the biopsies. documented in this encounter Nursing Notes 09/01/2008 3:30 PM CDT >> SHILOH DUVAL Fri Sep 01, 2008 3:25 PM Rhonda Kirkland presents for colp.Pt had HSIL pap 06/02.Shiloh Duval MA Initial BP 98/60 Wt 142 lb 12.8 oz (64.774 kg) LMP 08/10/2008 Estimated Body mass index is 23.05kg/(m^2) as calculated from: Height of 5' 6 (1.676 m) as of 07/13/08 Weight of 142 lb 12.8 oz (64.774 kg) as of this encounter. BP completed using cuff size: regular documented in this encounter Plan of Treatment Not on filedocumented as of this encounter Procedures Procedure Name Priority Date/Time Associated Diagnosis Comme nts HC COLP Routine 09/14/2008 5:51 PM HSIL on PAP Smear CERVIX/UPPER VAGINA CDT W BX CERVIX/ENDOCERV CURETT CL AFF SURGICAL Routine 09/01/2008 12:00 AM HSIL on PAP Smear Results for this PATHOLOGY CDT procedure are i n the results section. documented in this encounter Results SURGICAL PATHOLOGY (09/01/2008 12:00 AM CDT) Component Value Ref Test Analysis Performed At [facility] Method Time Signature Copath Report Patient Name: RHONDA KIRKLAND MR#: [id number] Specimen #: [id number] Collected: 09/01/2008 Received: 09/04/2008 Reported: 09/05/2008 15:13 Ordering Phy(s): SONNY MURRAY SPECIMEN(S): A: Cervical biopsy, 6 o'clock B: Endocervical curettings FINAL DIAGNOSIS: A. ??Cervix, at 6:00, biopsy - 1. ?Ectocervix and endocervix present. 2. ? No transformation zone identified. 3. ? No evidence of viral changes, dysplasia or malignan cy. B. ??Endocervix, curettings - 1. ?Mucus and endocervical cells present. 2. ? No evidence of viral changes, dysplasia or malignan cy. COMMENT: Previous Pap. smear ([id number]) was positive for high grade s quamous intraepithelial lesion. ??The Pap. smear was reviewed and th e abnormalities were confirmed. ??Consequently, there is no co rrelation between cytology and histology. ??Further evaluation is rodriguez mmended. Electronically signed out by: Mauri Pisano M.D. CLINICAL HISTORY: HSIL Pap. GROSS: A. ??The specimen, labeled cervical biopsy at 6:00, consis ts of a single fragment of soft min tissue measuring 0.[address] ??The specimen is bisected and submitted in its entirety. B. ??The specimen, labeled endometrial curettings, consist s of a cytobrush with fragments of translucent mucoid tissue measur ing 1.5 cm in aggregate diameter. ??The specimen is submitted in its en tirety. MGP/mihai MICROSCOPIC: A and B. ??Microscopic examination was performed. MGP/kd 09-05-08 TESTING LAB LOCATION: [address] ??[id number] COLLECTION SITE: Client: [facility] Location: RIOB (R) Specimen (Source) Anatomical Collection Method Collection Time Re ceived Time Location / / Volume Laterality 09/01/2008 09/04/2008 9:08 AM CDT Sonny Murray MD LABORATORY Performing Organization Address City/State/ZIP Code Phon e Number [facility] documented in this encounter Visit Diagnoses Diagnosis HSIL on Pap smear - Primary Papanicolaou smear of cervix with high g rade squamous intraepithelial lesion (HGSIL) documented in this encounter Care Teams Lobster Fisherman Relationship Specialty Start Date End Date Sonny Murray MD PCP - General 06/24/0410/19 documented as of this encounter
--- OUTSIDE RECORDS SUMMARY | 2022-01-03 08:25 | XMS_ITS | Encounter Summary ---
:1985 Author Organization [facility] Address [address] [place] [address] Care Team Providers Name Role Phone Morris Murray MD Primary Care Provider Unavailable Reason for Visit Reason Comments Consult consultation regarding colpo scopy Encounter Details Date Type Department Care Team Description 07/13/2008 Office Visit [facility] Morris Murray HSIL (High [facility] Squamous [facility] Sammi Diallo MD Intraepit helial Lesion) [place] on PAP Smear (Primary Dx) [address] [address] Social History Tobacco Use Types Packs/Day Years [...] Sign Reading Time Taken Comments Blood Pressure 104/58 07/13/2008 2:15 PM EMT BASIC Pulse - - Temperature - - Respiratory Rate - - Oxygen Saturation - - Inhaled Oxygen Concentration - - Weight 64 kg (141 lb) 07/13/2008 2:15 PM EMT BASIC Height 167.6 cm (5' 6) 07/13/2008 2:15 PM EMT BASIC Body Mass Index 22.76 07/13/2008 2:15 PM EMT BASIC documented in this encounter Progress Notes Morris Murray - 07/13/2008 2:22 PM CST SUBJECTIVE: Rhonda Tamayo is a 22 year old, Female, here to discuss HSIL pap and recent treatment of External HPV. No past medical history on file. No past surgical history on file. Current Outpatient Rx Name Route Sig Dispense Refill ??? NO ACTIVE MEDICATIONS . @ALLERGIE@ History Substance Use Topics ??? Tobacco Use: Yes Pt. smokes 3 cigarettes daily ??? Alcohol Use: Yes occasionally Review of Systems CONSTITUTIONAL:NEGATIVE EYES: NEGATIVE ENT/MOUTH: NEGATIVE RESP: NEGATIVE CV: NEGATIVE GI: NEGATIVE : NEGATIVE MUSCULOSKELATAL: NEGATIVE INTEGUMENTARY/SKIN: NEGATIVE BREAST: NEGATIVE NEURO: NEGATIVE. OBJECTIVE: BP 104/58 Ht 5' 6 (1.676 m) Wt 141 lb (63.957 kg) LMP 07/11/2008 Pelvis: Deferred ASSESSMENT: HSIL pap and recent treatment of External HPV PLAN: 1) Discussed false positive, false negative rate of pap smears. Association with HPV high risk subtypes and cervical cancer. Role of colposcopy, pap smear and HPV testing, LEEP procedure. Progression and regression rates for dysplasia and association with different age groups. 15 minute discussion. Patient to schedule colposcopy. BASIC documented in this encounter Nursing Notes 07/13/2008 2:15 PM CST >> TRINY Mann Jul 13, 2008 2:12 PM Rhonda Tamayo presents for consultation regarding abnormal pap results, Last pap was on 06-19-08,HGSIL/moderate to severe dysplasia/ELZBIETA 2 and ELZBIETA 3, pt. Has questions and concerns. Initial BP 104/58 Ht 5' 6 (1.676 m) Wt 141 lb (63.957 kg) LMP 07/11/2008 Body mass index is 22.76 kg/(m^2).BP completed using cuff size: patricia. Linda Navas RN documented in this encounter Plan of Treatment Not on filedocumented as of this encounter Visit Diagnoses Diagnosis HSIL (high grade squamous intraepithelia l lesion) on Pap smear - Primary Papanicolaou smear of cervix with high g rade squamous intraepithelial lesion (HGSIL) documented in this encounter Care Teams Enamel Sprayer Relationship Specialty Start Date End Date Morris Murray MD PCP - General 06/24/0410/19 documented as of this encounter
--- OUTSIDE RECORDS SUMMARY | 2022-01-03 08:25 | XMS_ITS | Encounter Summary ---
:1985 Author Organization [facility] Address [address] [place] [address] Care Team Providers Name Role Phone Sarah Montgomery PA-C Primary Care Provider [phone] Reason for Visit Reason Onset Date Comments Nurse Advice Line 09/15/2012 yeast Encounter Details Date Type Department Care Team Description 09/15/2012 Telephone [facility], Nurse Advice Line [facility] [place] Sarah Aguilar PA-C (yeast) [id number] [place] [id number] Social History Tobacco Use Types Packs/Day Years [...] Miscellaneous Notes Telephone Encounter - Amanda Gamble - 09/15/2012 4:59 PM CDT Pt calls, c/o white flaky discharge from vaginal area today, used otc monistat one month ago with success, c/o vaginal itching, discussed below at length, may try otc monistat again, rec ov for eval if sxs worse or persist, pt declines no recent antibiotics, no douching, does not wear thongs or tight fitting jeans, reviewed info below, rec ov if this episode clears up and another yeast infection develops in the short term What is vaginitis? Vaginitis is the medical name for swelling, burning, itching, or an infection of the vagina. When the vulva is also affected, it is called vulvovaginitis. (The vulva is the fold of skin around the opening of the vagina.) Vaginitis is a very common problem that can occur in females of any age. How does it occur? Vaginitis can be caused by organisms that infect the vagina, such as bacteria, viruses, protozoa, oryeast. It can also be caused by irritants such as soap, powders, or lubricants. Sexually transmitted diseases (STDs) that cause vaginal infections are: trichomoniasis chlamydial infections gonorrhea syphilis genital herpes human papillomavirus (genital warts). Yeast infections of the vagina are caused by overgrowth of a fungus called Radha. Vaginitis can also be caused by an overgrowth of bacteria normally found in the vagina. This is a condition called bacterial vaginosis or nonspecific vaginitis. Irritants that can cause vaginitis include: control products such as condoms, diaphragms, and spermicides feminine hygiene products such as perfumed sprays, powders, or douches perfumed soaps, detergents, or fabric softeners nonabsorbent, heat-retaining clothing such as nylon pantyhose and tights antibiotics tampons sexual devices injury. foreign objects in the vagina, such as a lost tampon Vaginitis can also be caused by psychological stress, poor hygiene, or a decrease in estrogen hormone (known as atrophic vaginitis). Sometimes the cause of vaginitis is not known. What are the symptoms? The main symptom of vaginitis is a lot of whitish, mcmahon, or yellowish discharge from the vagina. Some milky vaginal discharge is normal for females of all ages, but infections cause an abnormal amount of discharge. The discharge may have a bad odor. You may also have: an unpleasant odor from the vagina itching a swollen, red vulva, which may be painful or itchy painful intercourse bleeding in the vaginal area. symptoms of a urinary tract infection, such as pain when you urinate. If you have pain in your lower abdomen or irregular bleeding with these symptoms, see your healthcare provider right away. If you are at risk for a sexually transmitted disease and have the above symptoms, you should also see your provider right away. How is it diagnosed? Your healthcare provider will examine you and do lab tests. The lab tests may include tests of vaginal discharge, urine tests, and blood tests. How is it treated? The goal of treatment is to eliminate the organisms or irritants that are causing the symptoms. Infections are treated with antibiotic pills or shots, antifungal or antibacterial creams or gels, vaginal tablets, or vaginal inserts. Your healthcare provider may ask you to stop sexual activity for a time. Your provider may also ask that your partner be treated to prevent reinfection or spread of the infection. Vaginitis caused by irritants can usually be treated by stopping exposure to the irritant. Some irritations are treated with steroid or hormone creams. For women in menopause, vaginal dryness (atrophic vaginitis) can be treated with hormone pills or cream. Do not treat vaginitis with nonprescription medicine without the approval of your healthcare provider. It could be the wrong treatment. How long will the effects last? The symptoms usually start to decrease after a day of treatment. Infections clear up in about a week. It is very important that you take all of your prescribed medicine, even if your symptoms are gone.This will help to prevent recurrence. If you stop taking your medicine after the symptoms are relieved but before the scheduled end of treatment, the infection or irritation may come back. How can I take care of myself? To help relieve the symptoms you can: Bathe with nonirritating, unscented soap. Use water that is warm but not hot. Rinse the genital areathoroughly but gently. Pat dry without rubbing. Wear loose-fitting, all-cotton underwear or cotton-crotch underwear. Keep your genital area dry. Use a vaginal lubricant if you have vaginal dryness during sex. Call your healthcare provider if you notice a change in color, odor, consistency, or quantity of vaginal discharge. How can I help prevent vaginitis? Practice good personal hygiene: Bathe daily with mild soap and warm water. Wear all-cotton underwear or underwear with cotton crotches. Change underwear and pantyhose every day. Avoid wearing pantyhose or tights for too many hours, especially in hot, humid weather. Use deodorant-free white toilet paper to avoid perfume and dye that might irritate. Avoid using feminine hygiene products (such as sprays and powders) and bath additives (such as bubble baths and oils). Avoid douching more than once a month. Douching is not necessary. Use deodorant-free sanitary pads or tampons. Avoid spermicidal foams, gels, and creams. If you tend to get yeast infections when you take antibiotics, use an antiyeast cream while you are taking antibiotic medicine. Have just 1 sexual partner who is not sexually active with anyone else, and practice safe sex. Use a condom during sexual intercourse Wipe from top to bottom (front to back) after using the restroom. If you get a yeast infection when taking antibiotics, use vaginal antifungal creams when taking antibiotics. Amanda Gamble RN, BSN Message handled by Nurse Triage. documented in this encounter Plan of Treatment Not on filedocumented as of this encounter Visit Diagnoses Not on filedocumented in this encounter Care Teams Bone Char Operator Relationship Specialty Start Date End Date Sarah Montgomery PA-C PCP - General Family Practice 10/21/11 [address] [place] [address] documented as of this encounter
--- OUTSIDE RECORDS SUMMARY | 2022-01-03 08:25 | XMS_ITS | Encounter Summary ---
:1985 Author Organization [place] Address [facility] [place] [address] Care Team Providers Name Role Phone Sarah Montgomery PA-C Primary Care Provider [phone] Reason for Visit Reason Comments Repeat Pap Smear Contraception Pt c/o spotting on medicatio n - has not had a full period X2 months Encounter Details Date Type Department Care Team Description 06/30/2012 Office Visit [facility] Nadiya Bautista ption (Primary Dx); [facility] DO CHERYL [place] on Pap smear [place] [address] [facility] [address] [place], [place] [address] [address] [place], [place] [phone] (Work) [phone] Social History Tobacco Use Types Packs/Day Years [...] Sign Reading Time Taken Comments Blood Pressure 92/60 06/30/2012 8:54 AM FLUOROSCOPE OPERATOR Pulse - - Temperature - - Respiratory Rate - - Oxygen Saturation - - Inhaled Oxygen Concentration - - Weight 60.6 kg (133 lb 8 oz) 06/30/2012 8:54 AM FLUOROSCOPE OPERATOR Height 167.6 cm (5' 6) 06/30/2012 8:54 AM FLUOROSCOPE OPERATOR Body Mass Index 21.55 06/30/2012 8:54 AM FLUOROSCOPE OPERATOR documented in this encounter Patient Instructions Patient InstructionsNadiya Bautista DO - 06/30/2012 1:51 PM CST Return in 6 mo for pap ROSCOPE OPERATOR documented in this encounter Progress Notes Nadiya Bautista DO - 06/30/2012 9:05 AM CST S: ELZBIETA 1 here for repeat pap smear O: BP 92/60 Ht 5' 6 (1.676 m) Wt 133 lb 8 oz (60.555 kg) BMI 21.55 kg/m2 DIRECTOR AUTOMOTIVE PELVIC: NEGATIVE, normal external genitalia, normal vaginal mucosa, normal cervix. Labs: pap is pending Assessment: 26 y/o with ELZBIETA 1 for surveillance Contraception: Desires to control that will not cause spotting Plan: Repeat pap pending Rx [facility] Dr. Nadiya Bautista DO Obstetrics and Gynecology [facility] ROSCOPE OPERATOR documented in this encounter Nursing Notes 06/30/2012 8:45 AM CST >> GRICELDA Martinez Jun 30, 2012 8:55 AM Patient presents with: Repeat Pap Smear Contraception - Pt c/o spotting on medication - has not had a full period X2 months initial BP 92/60 Ht 5' 6 (1.676 m) Wt 133 lb 8 oz (60.555 kg) BMI 21.55 kg/m2 Estimated Body mass index is 21.55 kg/(m^2) as calculated from the following: Height as of this encounter: 5' 6(1.676 m). Weight as of this encounter: 133 lb 8 oz(60.555 kg).. bp completed using cuff size regular Gricelda Bernal MA documented in this encounter Plan of Treatment Not on filedocumented as of this encounter Procedures Procedure Name Priority Date/Time Associated Comments Diagnosis PAP IMAGED THIN Routine 06/30/2012 10:30 AM LGSIL on Pap smear Results for this LAYER, DIAGNOSTIC FLUOROSCOPE OPERATOR procedure are in the results section. HPV SCR W REF TO Routine 06/30/2012 12:00 AM Resu lts for this CONCHA ANAL PAP OR FLUOROSCOPE OPERATOR procedure a re in TISSUE the results section. documented in this encounter Results (ABNORMAL) PAP imaged thin layer, diagnostic (06/30/2012 10:30 AM FLUOROSCOPE OPERATOR) Component Value Ref Test Analysis Performed At [facility] Range Method Time Signature PAP ASC-US (A) COPATH Copath Report COPATH Patient Name: SHRUTI KIRKLAND MR#: [id number] Specimen #: [id number] Collected: 06/30/2012 Received: 07/01/2012 Reported: 07/05/2012 09:01 Ordering Phy(s): NADIYA BAUTISTA SPECIMEN/STAIN PROCESS: Pap Imaged thin layer prep diagnostic (SurePath, FocalPoint with guided screening) ? Pap-Cyto x 1, Reflex HPV x 1 SOURCE: Cervical, endocervical ---- Pap Imaged thin layer prep diagnostic (SurePath, FocalPoint with guided screening) SPECIMEN ADEQUACY: Satisfactory for evaluation. -Transformation zone component present. CYTOLOGIC INTERPRETATION: Epithelial Cell Abnormality: ??Squamous Cell: ??Atypical squ amous cells-of undetermined significance (ASC-US). ? Organism(s): -Fungal organisms morphologically consistent with Radha sp p. RECOMMENDATIONS: Comment: Molecular testing for HPV has been ordered for this specimen. Electronically signed out by: Martina Villegas M.D. Processed and screened at [facility] CLINICAL HISTORY: Irregular periods, Previous abnormal pap: LSIL Date of Last Pap: 10/21/11, Papanicolaou Test Limitations: ??Cervical cytology is a scre ening test with limited sensitivity; regular screening is critical for cancer prevention; Pap tests are primarily effective for the diagnosis/prevention of squamous cell carcinoma, not adenoca rcinomas or other cancers. TESTING LAB LOCATION: [facility] [address] [place], [place] ??[address] COLLECTION SITE: Client: ??[facility] Location: RIOB (R) Specimen (Source) Anatomical Collection Method Collection Time Re ceived Time Location / / Volume Laterality Cytologic 06/30/2012 10:30 07/01/2012 material AM FLUOROSCOPE OPERATOR 11:06 AM FLUOROSCOPE OPERATOR (specimen) Nadiya Bautista DO LAB - OPTIME CLINICAL SPECIM EN Performing Organization Address City/State/ZIP Code Phon e Number COPATH HPV screen with reflex to genotype (06/30/2012 12:00 AM FLUOROSCOPE OPERATOR) Component Value Ref Test Analysis Performed At [facility] Range Method Time Signature Copath Report Patient Name: SHRUTI KIRKLAND MR#: [id number] Specimen #: [id number] Collected: 06/30/2012 00:00 Received: 07/06/2012 11:34 Reported: 07/09/2012 08:49 Ordering Phy(s): NADIYA BAUTISTA TEST(S) REQUESTED: Human Papillomavirus Screen Analysis SPECIMEN DESCRIPTION: Cervical Cells METHODOLOGY: ??Total cellular DNA was extracted from the abo ve specimen and up to 1 ug subjected to DNA amplification with a series of oligonucleotide primers directed to the L1 region of the hum an papillomavirus genome. ??The resulting PCR fragments were th en by capillary electrophoresis using a [employer] with Bio Calculator software. ??The PCR products from samples positive [...] is negative for HPV DNA. Diagnosis Comment: These results do not rule out the presence of an occult HPV infection which is not detected due to either sampling error, or sampl e procurement. This test was developed and its performance determined by sara copeland [facility] [place] [facility]. It has not been cleared or approved by the U.S. Food and Luis g Administration. ??The FDA has determined that such clearance or approval is not necessary. ??Pursuant to the requirements of CLIA'88, this laboratory has established and verified the test's accuracy and precision. ??This test is used for clinical purposes. Electronically Signed Out By: YOSEF Machinist Linotype TESTING LAB LOCATION: [facility] [address] [facility] [address] [place] [id number] COLLECTION SITE: Client: ??[facility] Location: ??RIOB (R) Specimen (Source) Anatomical Collection Method Collection Time Re ceived Time Location / / Volume Laterality 06/30/2012 07/06/2012 11:3 4 AM FLUOROSCOPE OPERATOR Nadiya Bautista DO LAB - GENOMICS Performing Organization Address City/State/ZIP Code Phon e Number COPATH documented in this encounter Visit Diagnoses Diagnosis Contraception - Primary Unspecified contraceptive management LGSIL on Pap smear Papanicolaou smear of cervix with low gr angelo squamous intraepithelial lesion (LGSIL) documented in this encounter Care Teams Scuba Diver Relationship Specialty Start Date End Date Sarah Montgomery PA-C PCP - General Family Practice 10/21/11 [address] [place] [address] documented as of this encounter
--- OUTSIDE RECORDS SUMMARY | 2022-01-03 08:25 | XMS_ITS | Encounter Summary ---
:1985 Author Organization [place] Address Critical access hospital0 [facility] 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 Details Date Type Department Care Team Description 02/15/2014 Office Visit [facility] Nadiya Bautista sp ecified counseling (Primary Dx); [facility] DO Teresa Papanicolaou smear of cervix with low gr angelo squamous intraepithelial lesion (LGSIL); [place] [id number] [place] [address] Routine gynecological examin ation [address] [facility], [address] [place] [id number] [place] [address] [phone] (Work) [phone] Social History Tobacco Use Types Packs/Day Years [...] Sign Reading Time Taken Comments Blood Pressure 98/68 02/15/2014 9:38 AM CDT Pulse - - Temperature - - Respiratory Rate - - Oxygen Saturation - - Inhaled Oxygen Concentration - - Weight 67.4 kg (148 lb 8 oz) 02/15/2014 9:38 AM CDT Height 167.6 cm (5' 6) 02/15/2014 9:38 AM CDT Body Mass Index 23.97 02/15/2014 9:38 AM CDT documented in this encounter Patient Instructions Patient InstructionsNadiya Bautista DO - 02/15/2014 10:01 AM CDT Return in a year Dr. 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 Patient's last menstrual period was 01/19/2014. Periods are regular q 28-30 days, lasting 3 days. Dysmenorrhea:moderate, occurring first 1-2 days of flow. Cyclic symptoms include none. No intermenstrual bleeding, spotting, or discharge. Current contraception: condoms RAJI exposure: no History of abnormal Pap smear: Yes - with negative colposcopy 2011, normal pap with neg hpv 11/2012, repeat pap today If normal then repeat in 3 years Family history of uterine or ovarian cancer: No Regular self breast exam: Yes History of abnormal mammogram: No Family history of breast cancer: No History of abnormal lipids: No Past Medical History Diagnosis Date ??? 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 Family History Problem Relation Age of Onset ??? Heart Father HI at age 42 ??? Cancer Maternal Grandmother cervical and uterine ??? Breast CA Maternal Grandmother dx at age 62 ??? Diabetes Maternal Grandfather ??? Diabetes Paternal Grandfather ??? Colon CA No family hx of Past Surgical History Procedure Laterality Date ??? No history of surgery Current Outpatient Prescriptions Medication ??? valACYclovir (VALTREX) 1000 mg tablet ??? NO ACTIVE MEDICATIONS No current facility-administered medications for this visit. Allergies Allergen Reactions ??? No Known Drug Allergies History Substance Use Topics ??? Smoking status: Former Smoker ??? Smokeless tobacco: Never Used Comment: quit smoking 2months ago ??? Alcohol Use: Yes Comment: occasionally Review Of Systems Ears/Nose/Throat: negative Respiratory: No shortness of breath, dyspnea on exertion, cough, or hemoptysis Cardiovascular: negative Gastrointestinal: negative Genitourinary: See HPI OBJECTIVE: BP 98/68 Ht 5' 6 (1.676 m) Wt 148 lb 8 oz (67.359 kg) BMI 23.98 kg/m2 LMP 01/19/2014 General appearance: healthy, alert and no distress Skin: Skin color, texture, turgor normal. No rashes or lesions. Ears: negative Nose/Sinuses: Nares normal. Septum midline. Mucosa normal. No drainage or sinus tenderness. Oropharynx: Lips, mucosa, and tongue normal. Teeth and gums normal. Neck: Neck supple. No adenopathy. Thyroid symmetric, normal size,, Carotids without bruits. Lungs: negative, Percussion normal. Good diaphragmatic excursion. Lungs clear Heart: negative, PMI normal. No lifts, heaves, or thrills. RRR. No murmurs, clicks gallops or rub Breasts: Inspection negative. No nipple discharge or bleeding. No masses. Abdomen: Abdomen soft, non-tender. BS normal. No masses, organomegaly Pelvic: External genitalia and vagina normal. Bimanual normal. 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 PLAN: Dx: 1) Pap smear today: History Yes - with negative colposcopy 2011, normal pap with neg hpv 11/2012, repeat pap today If normal then repeat in 3 years. 2) Mammography, lipids at appropriate intervals 3) Gonorrhea And Chlamydia testing today 4) Condoms for contraception: Declines other methods PE: Reviewed health maintenance including diet, regular exercise and periodic exams. Dr. Nadiya Bautista DO Obstetrics and Gynecology [facility] documented in this encounter Nursing Notes Macie Roblero LPN - 02/15/2014 9:39 AM CDT Chief Complaint Patient presents with ??? 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 Weight as of this encounter: 148 lb 8 oz (67.359 kg). BP completed using cuff size: regular documented in this encounter Miscellaneous Notes Addendum Note - Hien Carty CMA - 02/15/2014 10:14 AM CDT Addended by: HIEN CARTY on: 02/15/2014 10:14 AM Modules accepted: Orders documented in this encounter Plan of Treatment Not on filedocumented as of this encounter Procedures Procedure Name Priority Date/Time Associated Diagnosis Comme nts NEISSERIA Routine 02/15/2014 2:53 Routine Gynecological Res ults for this GONORRHOEAE PCR PM CDT Examination procedure ar e in the results section. CHLAMYDIA Routine 02/15/2014 2:53 Routine Gynecological Res ults for this TRACHOMATIS PCR PM CDT Examination procedure ar e in the results section. PAP IMAGED THIN Routine 02/15/2014 12:00 Papanicolaou Smear Of Results for this LAYER, DIAGNOSTIC AM CDT Cervix With Low Grade p rocedure are in Squamous the results Intraepithelial Lesion secti on. (Lgsil) Routine Gynecological Examination HPV SCR W REF TO Routine 02/15/2014 12:00 Results for this CONCHA ANAL PAP OR AM CDT procedure a re in TISSUE the results section. documented in this encounter Results CHLAMYDIA TRACHOMATIS PCR (02/15/2014 2:53 PM CDT) Component Value Ref Test Analysis Performed At [facility] Method Time Signature Specimen Cervical [facility] Chlamydia Negative NEG [facility] Trachomatis Negative for C. trachomatis rRNA by service line coordinator mediated amplification. MICROBIOLOGY PCR A negative result by transc ription mediated amplification does not preclude the presence of C. trachomatis infection because re sults are dependent on proper and adequate collection, absence of inhibitors, and suffici ent rRNA to be detected. Specimen Anatomical Collection Method Collection Time Receive d Time (Source) Location / / Volume Laterality Cervical swab 02/15/2014 2:53 PM 02/16/20 14 2:58 (specimen) CDT PM CDT Nadiya Bautista DO LAB - MICRO GENERAL ORDERABL ES Performing Organization Address [facility] Phon e Number [place] [address] [address] [place], [place] [address] [address] [facility] MICROBIOLOGY NEISSERIA GONORRHOEA PCR (02/15/2014 2:53 PM CDT) Component Value Ref Test Analysis Performed At [facility] [place] Method Time [facility] Specimen Cervical [facility] Gonorrhea Negative NEG [facility] PCR Negative for N. gonorrhoeae rRNA by transcripti on mediated amplification. MICROBIOLOGY A negative result by transc ription mediated amplification does not preclude the presence of N. gonorrhoeae infection because re sults are dependent on proper and adequate collection, absence of inhibitors, and suffici ent rRNA to be detected. Specimen Anatomical Collection Method Collection Time Receive d Time (Source) Location / / Volume Laterality Cervical swab 02/15/2014 2:53 PM 02/16/20 14 2:58 (specimen) CDT PM CDT Nadiya Bautista LAB - MICRO GENERAL ORDERABL ES Performing Organization Address [facility] [place] [facility] Phon e Number [id number] [place] [address] [place], [place] [address] [address] [facility] MICROBIOLOGY HPV screen with reflex to genotype (02/15/2014 12:00 AM CDT) Component Value Ref Test Analysis Performed At [facility] [place] Method Time Signature Bettina Report Patient Name: SHRUTI KIRKLAND MR#: [id number] Specimen #: [id number] Collected: 02/15/2014 00:00 Received: 02/22/2014 15:33 Reported: 02/27/2014 10:23 Ordering Phy(s): NADIYA TERESA JEANNETTE TEST(S) REQUESTED: Human Papillomavirus Screen Analysis SPECIMEN DESCRIPTION: Cervical Cells METHODOLOGY: ??Total cellular DNA was extracted from the abo ve specimen and up to 1 ug subjected to DNA amplification with a series of oligonucleotide primers directed to the L1 region of the hum an papillomavirus genome. ??The resulting PCR fragments were th en by capillary electrophoresis using a [employer] with [employer] Calculator software. ??The PCR products from samples [...] This test was developed and its performance characteristics determined by the [facility], ??Molecular D iagn[facility] Laboratory. It has not been cleared or approved by the FDA. The laboratory is regulated under CLIA as qualified to perform high-complexity testing. This test is used for clinical purp oses. It should not be regarded as investigational or for research. Electronically Signed Out By: YOSEF Agriculture Scientist CPT Codes: A: [id number] TESTING LAB LOCATION: [address] [address] COLLECTION SITE: Client: ??[facility] Location: ??RIOB (R) Specimen (Source) Anatomical Collection Method Collection Time Re ceived Time Location / / Volume Laterality 02/15/2014 02/22/2014 3:33 PM CDT Nadiya Bautista DO LAB - GENOMICS Performing Organization Address City/State/ZIP Code Phon e Number [place] PAP imaged thin layer, diagnostic (02/15/2014 12:00 AM CDT) Component Value Ref Test Analysis Performed At [facility] Method Time Signature PAP NIL [place] Copath Report [place] Patient Name: SHRUTI KIRKLAND MR#: [id number] Specimen #: [id number] Collected: 02/15/2014 Received: 02/17/2014 Reported: 02/21/2014 10:48 Ordering Phy(s): NADIYA BAUTISTA SPECIMEN/STAIN PROCESS: Pap Imaged thin layer prep diagnostic (SurePath, FocalPoint with guided screening) ? Pap-Cyto x 1, Reflex HPV if NIL/ASCUS/LSIL x 1 SOURCE: Cervical, endocervical ---- Pap Imaged thin layer prep diagnostic (SurePath, FocalPoint with guided screening) SPECIMEN ADEQUACY: Satisfactory for evaluation. -Transformation zone component present. CYTOLOGIC INTERPRETATION: Negative for Intraepithelial Lesion or Malignancy Electronically signed out by: Saba Bone [facility] (ASCP) Processed and screened at [facility] CLINICAL HISTORY: LMP: 01/19/14 Previous normal pap Date of Last Pap: 12/13/12 Previous abnormal pap: HISTORY OF, Papanicolaou Test Limitations: ??Cervical cytology is a scre ening test with limited sensitivity; regular screening is critical for cancer prevention; Pap tests are primarily effective for the diagnosis/prevention of squamous cell carcinoma, not adenoca rcinomas or other cancers. TESTING LAB LOCATION: [address] ??[address] COLLECTION SITE: Client: ??[facility] Location: RIOB (R) Specimen (Source) Anatomical Collection Method Collection Time Re ceived Time Location / / Volume Laterality Cytologic 02/15/2014 02/17/2014 11:0 7 material AM CDT (specimen) Nadiya Bautista DO LAB - OPTIME CLINICAL SPECIM EN Performing Organization Address City/State/ZIP Code Phon e Number [place] documented in this encounter Visit Diagnoses Diagnosis Other specified counseling - Primary Papanicolaou smear of cervix with low gr angelo squamous intraepithelial lesion (LGSIL) Routine gynecological examination documented in this encounter Care Teams Manager Leadership Development Relationship Specialty Start Date End Date Sarah Montgomery PA-C PCP - General Family Practice 10/21/11 [address] [place] [address] documented as of this encounter
--- OUTSIDE RECORDS SUMMARY | 2022-01-03 08:25 | XMS_ITS | Encounter Summary ---
:1985 Author Organization [place] Address [address] [place] [address]. [place] [address] Care Team Providers Name Role Phone Sarah Montgomery PA-C Primary Care Provider Reason for Referral Consultation - Closed Specialty Diagnoses / Procedures Referred By Contact Refer red To Contact Diagnoses Itching of ear Sarah Montgomery [facility] Aguilar PA-C [address] [place] [address] [address] [place] [phone] Referral ID Status Reason Start Date Expiration Date Visits Requ ested Visits Authorized [id number] Closed 11/16/2014 05/15/2015 1 1 Reason for Visit Reason Comments Other itchy eyes and throat due to allergy Encounter Details Date Type Department Care Team Description 11/16/2014 Office Visit [facility] Shaheen Montgomery of ear (Primary Dx); [facility] [place] Sarah Aguilar PA-C Screen for STD (sexually transmitted dis ease); [address] [facility] [address] [place] [address] [phone] Social History Tobacco Use Types Packs/Day Years [...] Sign Reading Time Taken Comments Blood Pressure 103/78 11/16/2014 8:39 AM CDT Pulse 73 11/16/2014 8:39 AM CDT Temperature 36.9 ??C (98.4 ??F) 11/16/2014 8:39 AM CDT Respiratory Rate - - Oxygen Saturation 99% 11/16/2014 8:39 AM CDT Inhaled Oxygen Concentration - - Weight 66.2 kg (146 lb) 11/16/2014 8:39 AM CDT Height 167.6 cm (5' 6) 11/16/2014 8:39 AM CDT Body Mass Index 23.57 11/16/2014 8:39 AM CDT documented in this encounter Patient Instructions Patient InstructionsAaseSarah Rene PA-C - 11/16/2014 9:04 AM CDT (278.9) Itching of ear (primary encounter diagnosis) Comment: Plan: OTOLARYNGOLOGY REFERRAL Please read lucille courtney. taran pot twice daily Zyrtec 10 mg daily Follow-up with ENT documented in this encounter Progress Notes Sarah Montgomery PA-C - 11/16/2014 8:40 AM CDT SUBJECTIVE: Rhonda Tamayo is a 29 year old female who presents to clinic today for the following health issues: ALLERGIES ?? Onset: worse in the spring time ?? Description: Nasal congestion: no Sneezing: YES Red, itchy eyes: no ?? Progression of Symptoms: same worse ?? Accompanying Signs & Symptoms: Cough: no Wheezing: no Rash: no Sinus/facial pain: no Feels like there is something in her throat and itchy ears - Spit up a little bit of blood. ?? History: Is it seasonal: in the fall and in the spring History of Asthma: no Has allergy testing been done: no ?? Precipitating factors: Unsure ?? Alleviating factors: r ?? Therapies Tried and outcome: singulair Problem list and histories reviewed & adjusted, as indicated. Additional history: as documented Current Outpatient Prescriptions Medication Sig Dispense Refill ??? vitamin D (ERGOCALCIFEROL) 35711 UNIT capsule Take 1 capsule (50,000 Units) by mouth every 7 days for 8 doses 8 capsule 0 ??? Cholecalciferol (VITAMIN D) 2000 UNITS tablet Take 2,000 Units by mouth daily 100 tablet 3 ??? montelukast (SINGULAIR) 10 MG tablet Take 1 tablet (10 mg) by mouth At Bedtime 90 tablet 3 ??? valACYclovir (VALTREX) 1000 mg tablet Take 1 tablet (1,000 mg) by mouth 2 times daily 60 tablet 0 BP Readings from Last 3 Encounters: 11/16/14 103/78 10/05/14 100/68 03/03/14 118/68 Wt Readings from Last 3 Encounters: 11/16/14 146 lb (66.225 kg) 10/05/14 144 lb 9.6 oz (65.59 kg) 03/03/14 148 lb (67.132 kg) ROS: Constitutional, HEENT, cardiovascular, pulmonary, gi and gu systems are negative, except as otherwise noted. OBJECTIVE: BP 103/78 mmHg Pulse 73 Temp(Src) 98.4 ??F (36.9 ??C) (Oral) Ht 5' 6 (1.676 m) Wt 146 lb (66.225 kg) BMI 23.58 kg/m2 SpO2 99% Body mass index is 23.58 kg/(m^2). GENERAL APPEARANCE: healthy, alert and no distress EYES: Eyes grossly normal to inspection, PERRL and conjunctivae and sclerae normal HENT: nose and mouth without ulcers or lesions, TM's pearly wilde, normal light reflex left and TM fluid right RESP: lungs clear to auscultation - no rales, rhonchi or wheezes CV: regular rates and rhythm, normal S1 S2, no S3 or S4 and no murmur, click or rub LYMPHATICS: normal ant/post cervical and supraclavicular nodes ASSESSMENT/PLAN: 1. Itching of ear Rhonda states she has itching in throat bilaterally and ears itch horrible. Was given a steroid ear drop which was ineffective. Feels lump in throat. Will refer to ENT and advised netti pot and zyrtec - OTOLARYNGOLOGY REFERRAL 2. Screen for STD (sexually transmitted disease) - HIV Antigen Antibody Combo - NEISSERIA GONORRHOEA PCR - CHLAMYDIA TRACHOMATIS PCR 3. Depression - PHQ-9 ORDER - select when completing PHQ-9 - GENERAL ANXIETY DISORDER QUESTIONNAIRE (JAEL) - DEPRESSION ACTION PLAN (DAP) Patient Instructions (698.9) Itching of ear (primary encounter diagnosis) Comment: Plan: OTOLARYNGOLOGY REFERRAL Please read lucille courtney. netti pot twice daily Zyrtec 10 mg daily Follow-up with ENT Sarah Montgomery PA-C, [facility] documented in this encounter Nursing Notes Renee Gold CMA - 11/16/2014 8:40 AM CDT Chief Complaint Patient presents with ??? Other itchy eyes and throat due to allergy Initial BP 103/78 mmHg Pulse 73 Temp(Src) 98.4 ??F (36.9 ??C) (Oral) Ht 5' 6 (1.676 m) Wt 146 lb (66.225 kg) BMI 23.58 kg/m2 SpO2 99% Estimated body mass index is 23.58 kg/(m^2) as calculated from the following: Height as of this encounter: 5' 6 (1.676 m). Weight as of this encounter: 146 lb (66.225 kg). BP completed using cuff size: patricia Gold CMA documented in this encounter Plan of Treatment Scheduled Referrals Name Type Priority Associated Diagnoses Order S chedule OTOLARYNGOLOGY REFERRAL Referral Routine Itching of ear Or dered: 11/16/2014 documented as of this encounter Procedures Procedure Name Priority Date/Time Associated Diagnosis Comme nts NEISSERIA Routine 11/16/2014 9:12 AM Screen for STD Results for this GONORRHOEAE PCR CDT (sexually procedure ar e in transmitted disease) the res ults section. CHLAMYDIA Routine 11/16/2014 9:12 AM Screen for STD Results for this TRACHOMATIS PCR CDT (sexually procedure ar e in transmitted disease) the res ults section. HIV ANTIGEN ANTIBODY Routine 11/16/2014 9:11 AM Screen for STD Results for this COMBO CDT (sexually procedure are i n transmitted disease) the res ults section. documented in this encounter Results CHLAMYDIA TRACHOMATIS PCR (11/16/2014 9:12 AM CDT) Component Value Ref Test Analysis Performed At [facility] [place] Method Time Signature Specimen Urine [facility] Chlamydia Negative NEG [facility] Trachomatis Negative for C. trachomatis rRNA by manager money mediated amplification. [facility] PCR A negative result by transc ription mediated amplification does not preclude the [facility] presence of C. trachomatis infection because re sults are dependent on proper BANK and adequate collection, absence of inhibitors, and suffici ent rRNA to be detected. Specimen Anatomical Collection Method Collection Time Receive d Time (Source) Location / / Volume Laterality Urine specimen 11/16/2014 9:12 AM 015 9:13 (specimen) CDT AM CDT Sarah Montgomery PA-C LAB - MICRO GENERAL OR DERABLES Performing Organization Address City/State/ZIP Code Phon e Number [facility] [address] [place] [address] [facility] [address] [place] [address] NEISSERIA GONORRHOEA PCR (11/16/2014 9:12 AM CDT) Component Value Ref Test Analysis Performed At [facility] [place] Method Time Signature Specimen Urine [facility] N Gonorrhea Negative NEG [facility] PCR Negative for N. gonorrhoeae rRNA by transcripti on mediated amplification. [facility] A negative result by transc ription mediated amplification does not preclude the [facility] presence of N. gonorrhoeae infection because re sults are dependent on proper BANK and adequate collection, absence of inhibitors, and suffici ent rRNA to be detected. Specimen Anatomical Collection Method Collection Time Receive d Time (Source) Location / / Volume Laterality Urine specimen 11/16/2014 9:12 AM 015 9:13 (specimen) CDT AM CDT Sarah Montgomery PA-C LAB - MICRO GENERAL OR DERABLES Performing Organization Address City/[facility]/ZIP Code Phon e Number [address] [address] [place] [address] [place] [address] HIV Antigen Antibody Combo (11/16/2014 9:11 AM CDT) [facility] gist Method Time Signature HIV Antigen Nonreactive NR [facility] Antibody HIV-1 p24 Ag & HIV-1/HIV-2 Ab Not Detected [facility] Combo [facility] Specimen Anatomical Collection Method Collection Time Receive d Time (Source) Location / / Volume Laterality Blood specimen 11/16/2014 9:11 AM 015 9:12 (specimen) CDT AM CDT Sarah Montgomery PA-C LAB - BLOOD ORDERABLES Performing Organization Address City/[facility] Code Phon e Number [address] documented in this encounter Visit Diagnoses Diagnosis Itching of ear - Primary Unspecified pruritic disorder Screen for STD (sexually transmitted dis ease) Screening examination for venereal disea se Depression Depressive disorder, not elsewhere class ified documented in this encounter Care Teams Data Communications Analyst Relationship Specialty Start Date End Date Sarah Montgomery PA-C PCP - General Family Practice 10/21/11 [address] [place] [address] documented as of this encounter
--- OUTSIDE RECORDS SUMMARY | 2022-01-03 08:25 | XMS_ITS | Encounter Summary ---
:1985 Author Organization [place] Address [address] [place] [address] Care Team Providers Name Role Phone Sarah Montgomery PA-C Primary Care Provider [phone] Reason for Visit Reason Onset Date Comments Nurse Advice Line 10/19/2014 Encounter Details Date Type Department Care Team Description 10/19/[address] [facility] Valentina, Nurse Advice Line [place] Sarah Aguilar PA-C [id number] [place] [phone] [place] [address] (Wo rk) Social History Tobacco Use Types [...] Telephone Encounter - Christine Colunga RN - 10/19/2014 9:12 AM CDT Patient calling with clarification on how she is suppose to take her new vitamin D. Pt is to take 32817 units weekly for 8 wks, then 2000 units daily thereafter and recheck in 4-6 months per instructions. Pt also had questions about UTIs and why she was asked about HIV testing in Feb when she was dx witha UTI. Explained to pt that is is common practice for young and old to discuss STD prevention, safe sex practices, and current sexual encounters as this will indicated if testing is appropriate. All questions answered and pt encouraged to call with any other questions or concerns. Christine Colunga RN, BSN documented in this encounter Plan of Treatment Not on filedocumented as of this encounter Visit Diagnoses Not on filedocumented in this encounter Care Teams Boarder Hand Relationship Specialty Start Date End Date Sarah Montgomery PA-C PCP - General Family Practice 10/21/11 [address] [place] [address] documented as of this encounter
--- OUTSIDE RECORDS SUMMARY | 2022-01-03 08:25 | XMS_ITS | Encounter Summary ---
:1985 Author Organization [place] Address [address] [place] [address] Care Team Providers Name Role Phone Sarah Montgomery PA-C Primary Care Provider [phone] Encounter Details Date Type Department Care Team Description 11/22/2013 Telephone [facility] Zarina Murillo, RN [address] [place] [address] Social History Tobacco Use Types Packs/Day [...] this encounter Miscellaneous Notes Telephone Encounter - Zarina Murillo - 11/22/2013 1:05 AM CDT Call Type: Triage Call Presenting Problem: Caller states I have a pain in my chest when I take a deep breath. Caller reports that she also feels a little short of breath and pain goes up into her shoulder. Reviewed 911 triage recommendation and care advice with caller. Caller verbalized understanding. Triage Note: Guideline Title: Chest Pain Recommended Disposition: Activate EMS 911 Original Inclination: Wanted to speak with a nurse Override Disposition: Intended Action: Call 911 Physician Contacted: No Chest discomfort associated with shortness of breath, sweating, odd heartbeats or different heart rate, nausea, vomiting, lightheadedness, or fainting lasting 5 or more minutes now or within the last hour ? YES Loss of consciousness for any period of time ? NO New or worsening signs and symptoms that may indicate shock ? NO Chest pain spreading to the shoulders, neck, jaw, in one or both arms, stomach or back lasting 5 or more minutes now or within the last hour. Pain is NOT associated with taking a deep breath or a productive cough, movement, or touch to a localized area. ? NO Pressure, fullness, squeezing sensation or pain anywhere in the chest lasting 5 or more minutes now or within the last hour. Pain is NOT associated with taking a deep breath or a productive cough, movement, or touch to a localized area on the chest. ? NO Physician Instructions: Care Advice: An adult should stay with the patient, preferably one trained in CPR. IMMEDIATE ACTION Place person in a position of comfort and loosen tight clothing. documented in this encounter Plan of Treatment Not on filedocumented as of this encounter Visit Diagnoses Not on filedocumented in this encounter Care Teams Residential Direct Support Professional Relationship Specialty Start Date End Date Sarah Montgomery PA-C PCP - General Family Practice 10/21/11 [address] [place] [address] documented as of this encounter
--- OUTSIDE RECORDS SUMMARY | 2022-01-03 08:25 | XMS_ITS | Encounter Summary ---
:1985 Author Organization [place] Address [facility] [place] [address] Care Team Providers Name Role Phone Sarah Montgomery PA-C Primary Care Provider Reason for Visit Reason Onset Date Comments Abnormal Bleeding Problem 01/22/2012 ELZBIETA 1 Encounter Details Date Type Department Care Team Description 01/22/2012 Telephone [facility] Nadiya Bautista Abnormal Bleeding [facility] DO [place] Problem (ELZBIETA 1) [place] [address] [facility] [address] [place], [place] [address] [address] [place], [place] [phone] [address] (Work) [phone] Social History Tobacco Use Types Packs/Day Years [...] this encounter Miscellaneous Notes Telephone Encounter - Annette White - 01/30/2012 1:07 PM CDT Pt was informed of information below. Pt verbalized understanding. Annette White RN. Telephone Encounter - Casey Rachell Shea - 01/30/2012 12:01 PM CDT Please return patient's call to number below. Rachell Peña Industrial Custodian Telephone Encounter - Annette White - 01/30/2012 9:52 AM CDT Left voice mail for patient to call back. [phone] ELZBIETA 1 on colposcopy Can have repeat pap smear in 6 and 12 months or HPV testing with pap smear in 1 year FINAL DIAGNOSIS: A. Cervix, 6 o'clock, biopsy - Squamous mucosa without diagnostic dysplasia. Negative for malignancy. Transition zone not present. B. Cervix, 9 o'clock, biopsy - Squamous mucosa with focal minimal atypia suggestive of low grade squamous intraepithelial lesion. (ELZBIETA I). Transition zone not present. C. Cervix, 3 o'clock, biopsy - Squamous mucosa with focal minimal atypia suggestive of low grade squamous intraepithelial lesion. (ELZBIETA I). Transition zone not present. D. Endocervix, curettage - Focal reactive epithelial changes. Negative for dysplasia and malignancy. Cervical intraepithelial neoplasia (ELZBIETA), also known as cervical dysplasia and cervical interstitialneoplasia, is the potentially premalignant transformation and abnormal growth (dysplasia) of squamous cells on the surface of the cervix.[1] ELZBIETA is not cancer, and is usually curable.[2] Most cases of ELZBIETA remain stable, or are eliminated by the host's immune system without intervention. However a small percentage of cases progress to become cervical cancer, usually cervical squamous cell carcinoma (SCC), if left untreated.[3] The major cause of ELZBIETA is chronic infection of the cervix with the sexually transmitted human papillomavirus (HPV), especially the high-risk HPV types 16 or 18. Over 100 typesof HPV have been identified. About a dozen of these types appear to cause cervical dysplasia and maylead to the development of cervical cancer. Other types cause warts. Http://en.wikipedia.org/wiki/Cervical_intraepithelial_neoplasia Annette White RN. Telephone Encounter - Nadiya Bautista DO - 01/22/2012 4:35 PM CDT ELZBIETA 1 on colposcopy Can have repeat pap smear in 6 and 12 months or HPV testing with pap smear in 1 year Left message on answering machine for patient with information Please send letter with above information Dr. Nadiya Bautista DO DIRECTOR OF ONCOLOGY [facility] documented in this encounter Plan of Treatment Not on filedocumented as of this encounter Visit Diagnoses Not on filedocumented in this encounter Care Teams Cooling Tower Operator Relationship Specialty Start Date End Date Sarah Montgomery PA-C PCP - General Family Practice 10/21/11 [address] [place] [address] documented as of this encounter
--- OUTSIDE RECORDS SUMMARY | 2022-01-03 08:25 | XMS_ITS | Encounter Summary ---
:1985 Author Organization [place] Address [address] [place] [address] Care Team Providers Name Role Phone Morris Murray MD Primary Care Provider Unavailable Reason for Visit Reason Onset Date Comments Call to schedule test 06/12/2009 repeat pap Encounter Details Date Type Department Care Team Description 06/12/2009 Telephone [facility] Morris Murray Call to ar hedule test Clinic Kiana Diallo MD (repeat pap) [address] [place] [address] Social History Tobacco Use Types [...] this encounter Miscellaneous Notes Telephone Encounter - Saumya Shaver - 08/31/2009 9:47 AM CDT No response to certified letter and no apt made/on file. Episode resolved. Saumya Shaver RN Telephone Encounter - Saumya Shaver - 08/15/2009 3:37 PM CDT Signature card received. If no response by 08/29/09 resolve episode and close encounter. Saumya Shaver RN Telephone Encounter - Amy Mindy - 08/15/2009 2:53 PM CDT 08/15/09 - Rec'd signed certified card, forwarded to [facility], copy given to Saumya-CASH APPLICATIONS COORDINATOR. Telephone Encounter - Mindy Reyes - 08/07/2009 4:48 PM CDT 08/07/09 - Certified letter mailed 08/07/09. HIMS/bg. Telephone Encounter - Saumya Shaver - 08/07/2009 2:49 PM CDT Signature card not Received. Certified letter resent. Saumya Shaver RN Telephone Encounter - Mindy Reyes - 07/18/2009 2:54 PM CST - Letter mailed certified. HIMS/bg. ICULTURAL AGENT Telephone Encounter - Saumya Shaver - 07/16/2009 11:09 AM CST Certified repeat pap reminder letter sent. If no response after 2 weeks of receipt of signature card, resolve episode and close encounter. Saumya Shaver RN ICULTURAL AGENT Telephone Encounter - Saumya Shaver - 06/20/2009 10:25 AM CST Letter sent asking pt to call office. Saumya Shaver RN ICULTURAL AGENT Telephone Encounter - Poonam Begum, RN - 06/12/2009 9:31 AM CST LMOM for pt to return call to clinic. Due for repeat pap. Please assist in scheduling, thanks. Poonam Begum RN ICULTURAL AGENT documented in this encounter Plan of Treatment Not on filedocumented as of this encounter Visit Diagnoses Not on filedocumented in this encounter Care Teams Hotel Houseman Relationship Specialty Start Date End Date Morris Murray MD PCP - General 06/24/0410/19 documented as of this encounter
--- OUTSIDE RECORDS SUMMARY | 2022-01-03 08:25 | XMS_ITS | Encounter Summary ---
:1985 Author Organization [place] Address [address] [facility] [address] Care Team Providers Name Role Phone Sarah Montgomery PA-C Primary Care Provider Reason for Visit Reason Onset Date Comments Call To Schedule Appointment 05/13/2012 Ultrasound Encounter Details Date Type Department Care Team Description 05/13/2012 Telephone [facility] Nadiya Bautista Call To Schedule Women[facility] Clinic DO [place] Appointment [place] [id number] [place] [address] JERO (Ultrasound) [address] [place], [place] [address] [address] [place], [place] [phone] [address] (Work) [phone] Social History Tobacco Use Types Packs/Day Years [...] this encounter Miscellaneous Notes Telephone Encounter - Irene Portillo Shabbir - 05/17/2012 8:13 AM CST Letter sent for Rhonda to return our call and schedule an Ultrasound as per order from Dr Bautista on 05/13/12. EM DEVELOPER ASSOCIATE MANAGER Telephone Encounter - Mandi Wang - 05/14/2012 10:38 AM CST Left message for Rhonda to return call to schedule an Ultrasound. EM DEVELOPER ASSOCIATE MANAGER Telephone Encounter - Irene Portillo - 05/13/2012 12:42 PM CST Left message for Rhonda to return call to schedule an Ultrasound. EM DEVELOPER ASSOCIATE MANAGER documented in this encounter Plan of Treatment Not on filedocumented as of this encounter Visit Diagnoses Not on filedocumented in this encounter Care Teams Corporate Giving Manager Relationship Specialty Start Date End Date Sarah Montgomery PA-C PCP - General Family Practice 10/21/11 [address] [place] [address] documented as of this encounter
--- OUTSIDE RECORDS SUMMARY | 2022-01-03 08:25 | XMS_ITS | Encounter Summary ---
:1985 Author Organization [place] Address [address] [facility] [place] [address] Care Team Providers Name Role Phone Sarah Montgomery PA-C Primary Care Provider [phone] Reason for Visit Reason Comments Abdominal Pain sharp pain at first then scrap shear operator mpy for 5 days--had positive home hcg--then took hcg last nigh t and it was negative--pt spotting since yesterday morning--stopped d epo in Jan.--wanting to go back on b/c pills Encounter Details Date Type Department Care Team Description 05/12/2012 Office Visit [facility] Nadiya Bautista Positive test (Primary Dx); [facility] Clinic DO [place] Abdominal pain; [place] [address] Contraception [address] [place], [place] [address] [address] [place], [place] [phone] [address] (Work) [phone] Social History Tobacco Use Types Packs/Day Years [...] Sign Reading Time Taken Comments Blood Pressure 98/56 05/12/2012 10:19 AM SERVICES TECH Pulse - - Temperature - - Respiratory Rate - - Oxygen Saturation - - Inhaled Oxygen Concentration - - Weight 60 kg (132 lb 4.8 oz) 05/12/2012 10:19 AM SERVICES TECH Height - - Body Mass Index 21.35 01/19/2012 8:46 AM CDT documented in this encounter Patient Instructions Patient InstructionsNadiya Bautista DO - 05/12/2012 10:53 AM CST Return in a month for pap smear Ultrasound if pain persists control prescription ICES TECH documented in this encounter Progress Notes Nadiya Bautista DO - 05/12/2012 10:41 AM CST SUBJECTIVE: Rhonda Tamayo is an 26 year old woman who presents for gynecology consult for biochemical , was on depo-provera. No LMP recorded. Patient is not currently having periods (Reason: Irregular Periods). Stopped depo-provera in January due to side effects, having bleeding irregularly since, then had positive home test, that was faint line, then became negative. Prior, had regular periods, monthly lasting 4-5 days. Current contraception: none History of abnormal Pap smear: Yes - ELZBIETA 1, repeat pap is due in May Family history of uterine or ovarian cancer: Maternal grandmother with ovarian cancer History of abnormal mammogram: No Family history of breast cancer: maternal grandmother with breast cancer Concerns today: Past Medical History Diagnosis Date ??? abnormal pap 06/02, 09/2011 '09 HSIL, colp neg, '12:ELZBIETA I @ob@ Family History Problem Relation Age of Onset ??? Heart Father CO at age 42 ??? Cancer Maternal Grandmother cervical and uterine ??? Breast CA Maternal Grandmother dx at age 62 ??? Diabetes Maternal Grandfather ??? Diabetes Paternal Grandfather ??? Colon CA No family hx of Past Surgical History Procedure Date ??? No history of surgery Current Outpatient Prescriptions Medication ??? NO ACTIVE MEDICATIONS ??? valACYclovir (VALTREX) 500 MG tablet ??? medroxyPROGESTERone (DEPO-PROVERA) 150 MG/ML injection Allergies Allergen Reactions ??? No Known Drug Allergies History Substance Use Topics ??? Smoking status: Current Everyday Smoker ??? Smokeless tobacco: Never Used Comment: Pt. smokes 3 cigarettes daily ??? Alcohol Use: Yes occasionally Review Of Systems Ears/Nose/Throat: negative Respiratory: No shortness of breath, dyspnea on exertion, cough, or hemoptysis Cardiovascular: negative Gastrointestinal: negative Genitourinary: See HPI OBJECTIVE: BP 98/56 Wt 132 lb 4.8 oz (60.011 kg) General appearance: healthy, alert and no distress [...] No murmurs, clicks gallops or rub Breasts: negative Abdomen: Abdomen soft, non-tender. BS normal. No masses, organomegaly Pelvic: External genitalia and vagina normal. Bimanual without pain. LABS: upt negative today ASSESSMENT: Rhonda Tamayo is an 26 year old woman who presents for gynecology consult for biochemical , was on depo-provera. No LMP recorded. Patient is not currently having periods (Reason: Irregular Periods). Stopped depo-provera in January due to side effects, having bleeding irregularly since, then had positive home test, that was faint line, then became negative. Prior, had regular periods, monthly lasting 4-5 days. PLAN: Dx: 1) Contraception: Discussed risks and benefits of contraception options in detail including oral contraceptive pills, injection, IUD, ring and implanon. Patient elects OCPS. No contraindications noted. 2) ELZBIETA 1: repeat pap in [address] Nadiya Bautista DO Obstetrics and Gynecology [facility] [place] ICES TECH documented in this encounter Nursing Notes 05/12/2012 10:15 AM CST >> HIEN GIBSONER ThuMay 12, 2012 10:21 AM Patient presents with: Abdominal Pain - sharp pain at first then crampy for 5 days--had positive home hcg--then took hcg last night and it was negative--pt spotting since yesterday morning--stopped depo in Jan.--wanting togo back on b/c pills Initial BP 98/56 Wt 132 lb 4.8 oz (60.011 kg) Estimated Body mass index is 21.35 kg/(m^2) as calculated from the following: Height as of 12: 5' 6(1.676 m). Weight as of this encounter: 132 lb 4.8 oz(60.011 kg).. BP completed using cuff size: regular Hien Carty LUMITE INJECTOR documented in this encounter Plan of Treatment Not on filedocumented as of this encounter Procedures Procedure Name Priority Date/Time Associated Comments Diagnosis HCL HCG, URINE, Routine 05/12/2012 10:37 AM Positive Results for this NURSE BACKOFFICE SERVICES TECH test procedure a re in the results section. documented in this encounter Results HCL HCG, URINE, NURSE BACKOFFICE (05/12/2012 10:37 AM SERVICES TECH) P athologist Signature hCG, Qual negative [facility] Specimen (Source) Anatomical Collection Method Collection Time Re ceived Time Location / / Volume Laterality Urine specimen 05/12/2012 10:37 (specimen) AM SERVICES TECH Nadiya Bautista DO LABORATORY Performing Organization Address City/State/ZIP Code Phon e Number [facility] documented in this encounter Visit Diagnoses Diagnosis Positive test - Primary examination or test, positive result Abdominal pain Abdominal pain, unspecified site Contraception Unspecified contraceptive management documented in this encounter Care Teams Odd Job Laborer Relationship Specialty Start Date End Date Ronaldo-Sarah Doshi PA-C PCP - General Family Practice 10/21/11 [address] [place] [address] documented as of this encounter
--- OUTSIDE RECORDS SUMMARY | 2022-01-03 08:25 | XMS_ITS | Encounter Summary ---
:1985 Author Organization [place] Address [address] [place] [address] Care Team Providers Name Role Phone Sarah Montgomery PA-C Primary Care Provider [phone] Reason for Visit Reason Onset Date Comments Call Back 05/11/2012 abdominal pain Encounter Details Date Type Department Care Team Description 05/11/[address] [facility] [place], Call B a[facility] (abdominal Clinic [place] Sarah Aguilar PA-C pain) [id number] [place] [address] [place] [address] [phone] Social History Tobacco Use Types Packs/Day Years [...] Notes Telephone Encounter - Rachell Peña - 06/23/2012 3:54 PM CST Physician triaged. Rachell Peña Back Tacker UM METHYLATE OPERATOR Telephone Encounter - Nadiya Bautista DO - 05/11/2012 4:33 PM SODIUM METHYLATE OPERATOR Reviewed, agree, Dr. Nadiya Bautista, Obstetrics and Gynecology [facility] UM METHYLATE OPERATOR Telephone Encounter - Annette White - 05/11/2012 4:15 PM CST Spoke with pt and she said she has been off the Depo since Jan and has been sexually active and notusing any source of protection. Pt has lower abdominal pain since of last week Faint line on HPT Nausea Pt is spotting/red in color no clots Afebrile Pt did have the sweats and the chills, excruciating abdominal pain on Advised pt to see an manifest/order organizer print orders MD to r/o ectopic Pt placed on Dr. Bautista schedule on 05/11/[address] Bautista as an FYI. Annette White RN. UM METHYLATE OPERATOR Telephone Encounter - Annette White - 05/11/2012 1:15 PM CST LEFT VM 4 PTCB A faint line would indicate hcg detection a hormone produced during . Pt to make an appt @ 10-12 weeks (unless she is high risk sooner) with [facility]. Keep appt with Dr. Maciel for abdominal pain, however abdominal pain should be assessed by RN for possibility of tubal . If sever pt to go to ER. US would need to be done to r/o tubal . Annette White RN. UM METHYLATE OPERATOR Telephone Encounter - Rachell Peña - 05/11/2012 11:41 AM CST Name of caller: Rhonda Relationship to pt: self Reason for call: patient scheduled with Dr. Maciel and wondering if she needs to see OBGYN. Patient took test and was very faint. Patient wondering if she should keep appointment with provider. Best phone number to reach pt at is: [phone] Ok to leave a message with medical info? Pharmacy information: Rachell Peña Back Tacker UM METHYLATE OPERATOR documented in this encounter Plan of Treatment Not on filedocumented as of this encounter Visit Diagnoses Not on filedocumented in this encounter Care Teams Order Packer Relationship Specialty Start Date End Date Sarah Montgomery PA-C PCP - General Family Practice 10/21/11 [address] [place] [address] documented as of this encounter
--- OUTSIDE RECORDS SUMMARY | 2022-01-03 08:25 | XMS_ITS | Encounter Summary ---
:1985 Author Organization [facility] Address [address] [place] [address] Care Team Providers Name Role Phone Sarah Montgomery PA-C Primary Care Provider [phone] Reason for Visit Reason Comments Depression Encounter Details Date Type Department Care Team Description 03/01/2014 Office Visit [facility] Miguel Chawla Depress ion with anxiety (Primary Dx); Clinic [place] ARPAN Gillis BIOCHEMISTRY SPECIALIST Anxiety [id number] [phone] [phone] Social History Tobacco Use Types Packs/Day Years [...] Sign Reading Time Taken Comments Blood Pressure 120/81 03/01/2014 10:05 AM CDT Pulse 81 03/01/2014 10:05 AM CDT Temperature 36.8 ??C (98.3 ??F) 03/01/2014 10:05 AM CDT Respiratory Rate - - Oxygen Saturation - - Inhaled Oxygen Concentration - - Weight 66.2 kg (146 lb) 03/01/2014 10:05 AM CDT Height 167.6 cm (5' 6) 03/01/2014 10:05 AM CDT Body Mass Index 23.57 03/01/2014 10:05 AM CDT documented in this encounter Patient Instructions Patient InstructionsMiguel Chawla NP - 03/01/2014 10:26 AM CDT Images from the original note were not included. Depression Depression is one of the most common mental health problems today. It is not just a state of unhappiness or sadness. It is a true disease. The cause seems to be related to a decrease in chemicals that transmit signals in the brain. Having a family history of depression, alcoholism or suicide increasesthe risk. Chronic illness, chronic pain, migraine headaches and high emotional stress also increase the risk. Depression can cause many different symptoms, such as: -- Loss of appetite -- Over-eating -- Not being able to sleep -- Sleeping too much -- Tiredness not related to physical exertion -- Restlessness or irritability -- Slowness of movement or speech -- Feeling depressed or withdrawn -- Loss of interest in things you once enjoyed -- Difficulty in concentrating, poor memory, have trouble making decisions -- Thoughts of harming or killing oneself, or thoughts that life is not worth living -- Low self-esteem The best treatment for depression is a combination of medicine and psychotherapy. Antidepressant medicines can reduce suffering and can improve the ability to function during the depressed period. Therapy can offer emotional support and help you understand emotional factors that may be causing the depr ession. Home Care: 1) Be kind to yourself. Make it a point to do things that you enjoy (gardening, walking in nature, going to a movie, etc.). Reward yourself for small successes. 2) Take care of your physical body. Eat a balanced diet (low in saturated fat and high in fruits andvegetables). Establish an exercise plan at least 3 times a week for 30 minutes. Even mild-moderate exercise (like brisk walking) can make you feel better. 3) Avoid alcohol, which can make depression worse. Follow-Up with your doctor as advised. It is important to keep in contact with a health care provider until your symptoms begin to improve. Get Prompt Medical Attention if any of the following occur: -- Feeling extreme depression, fear, anxiety, or anger toward yourself or others -- Feeling out of control -- Feeling that you may try to harm yourself or another -- Hearing voices that others do not hear -- Seeing things that others do not see -- Can???t sleep or eat for 3 days in a row ?? [id number] [facility], [address] [place] [address], [place] [address]. All rights reserved. This information is not intended as a substitute for professional medical care. Always follow your healthcare professional's instructions. documented in this encounter Progress Notes Miguel Chawla NP - 03/01/2014 10:01 AM CDT SUBJECTIVE: Rhonda Tamayo is a 28 year old female who presents to clinic today for the following health issues: Abnormal Mood Symptoms ?? Onset: 2 months, distant history of depression and anxiety, treated with medication effectively, cannot remember what the name was. Denies major life stressors, a lot of little things such as work, living with boyfriends parents, house hunting. ?? Description: Depression: YES Anxiety: YES ?? Accompanying Signs & Symptoms: Still participating in activities that you used to enjoy: no Fatigue: YES Irritability: YES Difficulty concentrating: YES Changes in appetite: YES nausea when eating Problems with sleep: no Heart racing/beating fast : YES Thoughts of hurting yourself or others: none ?? History: Recent stress: YES Prior depression hospitalization: None Family history of depression: YES Family history of anxiety: YES ?? Precipitating factors: Alcohol/drug use: YES alcohol, social and occasional ?? Alleviating factors: St mejia wart helped some. ?? Therapies Tried and outcome: St mejia wart helped some. Problem list and histories reviewed & adjusted, as indicated. Additional history: as documented Patient Active Problem List Diagnosis ??? CARDIOVASCULAR SCREENING; LDL GOAL LESS THAN 160 ??? Papanicolaou smear of cervix with low grade squamous intraepithelial lesion (LGSIL) ??? HSV (herpes simplex virus) infection ??? Other specified counseling Past Surgical History Procedure Laterality Date ??? No history of surgery History Substance Use Topics ??? Smoking status: Former Smoker ??? Smokeless tobacco: Never Used Comment: quit smoking 2months ago ??? Alcohol Use: Yes Comment: occasionally Family History Problem Relation Age of Onset ??? Heart Father MT at age 42 ??? Depression Father ??? Cancer Maternal Grandmother cervical and uterine ??? Breast CA Maternal Grandmother dx at age 62 ??? Diabetes Maternal Grandfather ??? Diabetes Paternal Grandfather ??? Colon CA No family hx of Current Outpatient Prescriptions Medication Sig Dispense Refill ??? sertraline (ZOLOFT) 50 MG tablet Take 1/2 tablet (25 mg) for 1-2 weeks, then increase to 1 tablet orally daily 30 tablet 0 ??? valACYclovir (VALTREX) 1000 mg tablet Take 1 tablet by mouth 2 times daily. 60 tablet 0 ??? NO ACTIVE MEDICATIONS . Problem list, Medication list, Allergies, and Medical/Social/Surgical histories reviewed in EPIC andupdated as appropriate. ROS: C: NEGATIVE for fever, chills, change in weight E/M: NEGATIVE for ear, mouth and throat problems R: NEGATIVE for significant cough or SOB CV: NEGATIVE for chest pain, palpitations or peripheral edema ENDOCRINE: NEGATIVE for temperature intolerance, skin/hair changes PSYCHIATRIC: POSITIVE foranxiety and depressed mood OBJECTIVE: BP 120/81 Pulse 81 Temp(Src) 98.3 ??F (36.8 ??C) (Oral) Ht 5' 6 (1.676 m) Wt 146 lb (66.225kg) BMI 23.58 kg/m2 LMP 01/19/2014 ? No Body mass index is 23.58 kg/(m^2). GENERAL: healthy, alert, well nourished, well hydrated, no distress HENT: ear canals- normal; TMs- normal; Nose- normal; Mouth- no ulcers, no lesions NECK: no tenderness, no adenopathy, no asymmetry, no masses, no stiffness; thyroid- normal to palpation RESP: lungs clear to auscultation - no rales, no rhonchi, no wheezes CV: regular rates and rhythm, normal S1 S2, no S3 or S4 and no murmur, no click or rub - ABDOMEN: soft, no tenderness, no hepatosplenomegaly, no masses, normal bowel sounds NEURO: strength and tone- normal, sensory exam- grossly normal, mentation- intact, speech- normal, reflexes- symmetric PSYCH: Alert and oriented times 3; speech- coherent , normal rate and volume; able to articulate logical thoughts, able to abstract reason, no tangential thoughts, no hallucinations or delusions, affect- normal, teary at times ASSESSMENT/PLAN: Depression; initial episode-- Moderate Associated with the following complications: None Plan: Medications: SSRI - Zoloft ICD-9-CM 1. Depression with anxiety 300.4 sertraline (ZOLOFT) 50 MG tablet Follow up with Provider - in 2-4 weeks, sooner if symptoms of depression worsening, suicidal or any other concerning symptoms. Potential side effects reviewed with patient. Miguel Chawla NP [facility] documented in this encounter Nursing Notes Sushil Ford CMA - 03/01/2014 10:07 AM CDT Chief Complaint Patient presents with ??? Depression Initial BP 120/81 Pulse 81 Temp(Src) 98.3 ??F (36.8 ??C) (Oral) Ht 5' 6 (1.676 m) Wt 146 lb(66.225 kg) BMI 23.58 kg/m2 LMP 01/19/2014 ? No Estimated body mass index is 23.58 kg/(m^2) as calculated from the following: Height as of this encounter: 5' 6 (1.676 m). Weight as of this encounter: 146 lb (66.225 kg). BP completed using cuff size: patricia Ford CMA documented in this encounter Miscellaneous Notes Addendum Note - Miguel Chawla NP - 06/01/2014 10:07 AM VP [employer] Addended by: MIGUEL CHAWLA on: 06/01/2014 10:07 AM Modules accepted: SmartSet INTEGRITY Addendum Note - Rick Cordero CMA - 03/01/2014 12:48 PM CDT Addended by: RICK CORDERO on: 03/01/2014 12:48 PM Modules accepted: Orders, SmartSet documented in this encounter Plan of Treatment Not on filedocumented as of this encounter Visit Diagnoses Diagnosis Depression with anxiety - Primary Dysthymic disorder Anxiety Anxiety state, unspecified documented in this encounter Care Teams Environmental Health Technician Relationship Specialty Start Date End Date Sarah Montgomery PA-C PCP - General Family Practice 10/21/11 [address] [place] [address] documented as of this encounter
--- OUTSIDE RECORDS SUMMARY | 2022-01-03 08:25 | XMS_ITS | Encounter Summary ---
:1985 Author Organization [facility] Address [address] [place] [address] Care Team Providers Name Role Phone Sarah Montgomery PA-C Primary Care Provider [phone] Reason for Visit Reason Onset Date Comments Refill Request 09/11/2014 Encounter Details Date Type Department Care Team Description 09/11/2014 Refill [facility] Sarah Montgomery Refill Request Reshma Aguilar PA-C [address] [place] [phone] [place] [address] [phone] (Wo rk) Social History Tobacco Use Types [...] Miscellaneous Notes Telephone Encounter - Saumya Shaver RN - 09/11/2014 3:38 PM CDT Pt calling and states she needs rx today and is wanting to kno Telephone Encounter - Rachell Peña - 09/11/2014 1:08 PM CDT Ph. [phone] valACYclovir (VALTREX) 1000 mg tablet 60 tablet 0 12/13/2012 -- Sig: Take 1 tablet by mouth 2 times daily. Class: E-Prescribe Route: Oral OV 03/01/2014 Rachell Peña Tax Compliance Manager documented in this encounter Plan of Treatment Not on filedocumented as of this encounter Visit Diagnoses Diagnosis Genital herpes - Primary documented in this encounter Care Teams Family Services Assistant Relationship Specialty Start Date End Date Sarah Montgomery PA-C PCP - General Family Practice 10/21/11 [address] [place] [address] documented as of this encounter
--- OUTSIDE RECORDS SUMMARY | 2022-01-03 08:26 | XMS_ITS | Encounter Summary ---
:1985 Author Organization [facility] Address [address] [place] [address] Care Team Providers Name Role Phone DoctorJuancho MD Primary Care Provider Unavailable Reason for Visit Reason Comments Pharyngitis Encounter Details Date Type Department Care Team Description 10/20/2002 Abstract M [facility] Urgent [facility]on Orozco Care Shyla Stone PA-C [address] [phone] [place] [address] [phone] (Wo rk) Social History Tobacco Use Types Packs/Day Years Used Date Never Assessed Sex Assigned at Date Recorded Not on file documented as of this encounter Progress Notes 10/20/2002 11:59 PM CDT Amoxicillin 500 mg 1 po tid x 10 days #30 This information has been abstracted from the urgent care chart. documented in this encounter Plan of Treatment Not on filedocumented as of this encounter Visit Diagnoses Not on filedocumented in this encounter Care Teams Nitric Acid Concentrator Operator Relationship Specialty Start Date End Date Juancho Johnston MD PCP - General 07/09/01 06/23/04 documented as of this encounter
--- OUTSIDE RECORDS SUMMARY | 2022-01-03 08:26 | XMS_ITS | Encounter Summary ---
:1985 Author Organization [facility] Address [address] [place] [address] Care Team Providers Name Role Phone Sonny Murray MD Primary Care Provider Unavailable Reason for Visit Reason Comments Abnormal Uterine Bleeding Mass Encounter Details Date Type Department Care Team Description [facility] (Primary Dx); [facility] MD Yoel MENSTRUAL DIS ORDER [address] [place] [phone] Social History Tobacco Use Types Packs/Day Years Used Date Never Smoker Alcohol Use Standard Drinks/Week Comments No 0 (1 standard drink = 0.6 oz pure alcoho l) Sex Assigned at Date Recorded Not on file documented as of this encounter Last Filed Vital Signs Vital Sign Reading Time Taken Comments Blood Pressure 100/68 06/24/2004 2:33 PM GAME BIRD FARMER Pulse - - Temperature - - Respiratory Rate - - Oxygen Saturation - - Inhaled Oxygen Concentration - - Weight 63 kg (138 lb 12.8 oz) 06/24/2004 2:33 PM GAME BIRD FARMER Height - - Body Mass Index - - documented in this encounter Progress Notes 06/24/2004 2:45 PM GAME BIRD FARMER SUBJECTIVE: Rhonda Kirkland is a 18 year old, single female, P0 woman who presents for annual exam. Patient's last menstrual period was 05/31/2004. Menarche at age 15 y.o. Periods are irregular and 14 - 30 days, lasting 5 days, x 1 year. Dysmenorrhea none. Saturates 1 pad or tampon in 3 hours. Right breastlump x 5 days. Cyclic symptoms include bloating. Current contraception: none History of abnormal Pap smear: no Regular self breast exam: No Family history of breast cancer: no. Colon cancer no. Ovarian cancer no. History of abnormal lipids: no There is no previous medical history on file. There is no previous surgical history on file. No prescriptions on file. Review of the patient's allergies finds: No Known Drug Allergies Tobacco Use: Never Alcohol Use: No Review of Systems CONSTITUTIONAL:NEGATIVE EYES: NEGATIVE ENT/MOUTH: NEGATIVE RESP: NEGATIVE CV: NEGATIVE GI: NEGATIVE : NEGATIVE MUSCULOSKELATAL: NEGATIVE INTEGUMENTARY/SKIN: NEGATIVE BREAST: NEGATIVE NEURO: NEGATIVE. OBJECTIVE: BP 100/68 Wt 138 lbs 13 oz (63.0kg) LMP 05/31/2004 General appearance: Healthy. Skin: Normal. Mental Status: cooperative, normal affect, no gross thought process defects. Thyroid: Normal to palpation, no enlargement or nodules noted. Breasts: Symmetric without mass tenderness or discharge. Axillary nodes negative. Lungs: Clear to auscultation. Heart.: Normal rate and rhythm. No murmurs, clicks or gallops. Abdomen: BS active. Soft, non-tender, no masses or organomegaly. Pelvis: normal external genitalia, normal groin lymphatics, normal urethral meatus, normal vaginal mucosa, normal cervix, normal adnexa, no masses or tenderness, uterus normal size and shape and uterus antiverted. Extremities: Normal ASSESSMENT: Satisfactory annual laundry attendant exam. Right breast lump in skin? AUB PLAN: 1) Pap smear 2) Mammography, lipids at appropriate intervals 2) US, then ortho tricyclen lo 4) Call if no complete resolution of breast lump in 3 weeks ( Mother present for visit). PE: reviewed health maintenance including diet, regular exercise and periodic exams. documented in this encounter Nursing Notes 06/24/2004 2:45 PM CST >> SHILOH DUVAL 06/24/2004 2:36 pm Rhonda Kirkland presents for AUB. Pt states she has been getting her periods every 2 wks. Pt also states she found lump in right breast, was red and tender to touch.Shiloh Duval MA Initial BP 100/68 Wt 138 lbs 13 oz (63.0kg) LMP 05/31/2004. BP completed using cuff size: regular. documented in this encounter Plan of Treatment Not on filedocumented as of this encounter Procedures Procedure Name Priority Date/Time Associated Diagnosis Comme nts HCL PAP THIN LAYER Routine 06/24/2004 12:00 AM Routine Criminal Investigator Customs Re sults for this SCREEN GAME BIRD FARMER Examination procedure are i n the results section. documented in this encounter Results A THIN LAYER PAP SCREEN (06/24/2004 12:00 AM GAME BIRD FARMER) Component Value Ref Test Analysis Performed At [facility] Range Method Time Signature Copath Report Patient Name: RHONDA KIRKLAND MR#: [id number] Specimen #: [id number] Collected: 06/24/2004 Received: 06/25/2004 Reported: 06/26/2004 14:32 Ordering Phy(s): SONNY MURRAY SPECIMEN/STAIN PROCESS: Pap thin layer prep screening ? Pap-Cyto x 1, Reflex HPV x 1 SOURCE: Cervical, endocervical ---- Pap thin layer prep screening SPECIMEN ADEQUACY: Satisfactory for evaluation. -Transitional zone component absent. CYTOLOGIC INTERPRETATION: Negative for Intraepithelial Lesion or Malignancy Electronically signed out by: JOHNNIE Sahni (ASCP) Processed and screened at [facility] CLINICAL HISTORY: LMP: 05/31/04 Abnormal Bleeding, First pap test, Specimen (Source) Anatomical Collection Method Collection Time Re ceived Time Location / / Volume Laterality 06/24/2004 06/25/2004 9:26 AM GAME BIRD FARMER Sonny Murray MD LABORATORY Performing Organization Address City/State/ZIP Code Phon e Number COPATH documented in this encounter Visit Diagnoses Diagnosis Routine gynecological examination - Prim steve Other disorder of menstruation and other abnormal bleeding from female genital tract documented in this encounter Care Teams Transfusion Nurse Relationship Specialty Start Date End Date Sonny Murray MD PCP - General 06/24/0410/19 documented as of this encounter
--- OUTSIDE RECORDS SUMMARY | 2022-01-03 08:26 | XMS_ITS | Encounter Summary ---
:1985 Author Organization [facility] Address [address] [place] [address] Care Team Providers Name Role Phone Morris Murray MD Primary Care Provider Unavailable Reason for Visit Reason Comments Ultrasound Encounter Details Date Type Department Care Team Description 07/02/2004 Orders Only [facility] Women[facility] ME NSTRUAL DISORDER [facility] [place] (Primary Dx) [address] [place] [address] Social History Tobacco Use Types Packs/Day Years Used Date Never Smoker Alcohol Use Standard Drinks/Week Comments No 0 (1 standard drink = 0.6 oz pure alcoho l) Sex Assigned at Date Recorded Not on file documented as of this encounter Plan of Treatment Not on filedocumented as of this encounter Procedures Procedure Name Priority Date/Time Associated Diagnosis Comme [facility] US PELVIC NON-OB, Routine 07/02/2004 Menstrual Disorder N ec Results for this COMPLETE procedure are i n the results section . documented in this encounter Results SONO PELVIS COMPLETE (07/02/2004) Anatomical Region Laterality Modality Ultrasound Impressions 07/02/2004 Complete pelvic ultrasound utilizing both abdominal and vaginal transducers. ??Normal study. JULIOCESAR NARANJO MD Narrative 07/02/2004 ULTRASOUND - PELVIC COTTON CONVERTER Referring MD: Morris Murray MD Primary Clinic: [facility] Ultrasound disk#: [id number] CLINICAL INFORMATION Indications for ultrasound: 18yr old w/ Dysfunctional uterine bleeding (DUB) and Menorrhagia (heavy me nses) LMP: ? Hormones: none Measurements: Uterus: ? 6.0x3.9x3.9cm. ?? Position is retroverted and retroflexed. ??Contour is smth/reg. Endo cav: 9mm ? Smooth/regular/wnl Cervix: ??wnl Right ovary: 3.2x2.1x3.0cm. ?? Wnl Left ovary: ??3.3x2.3x2.9cm. ??Wnl Cul de sac: no free fluid Morris Murray MD SPECIAL IMAGING STUDIES documented in this encounter Visit Diagnoses Diagnosis Other disorder of menstruation and other abnormal bleeding from female genital tract - Primary documented in this encounter Care Teams Oil Burner Technician Relationship Specialty Start Date End Date Morris Murray MD PCP - General 06/24/0410/19 documented as of this encounter
--- OUTSIDE RECORDS SUMMARY | 2022-01-03 08:26 | XMS_ITS | Encounter Summary ---
:1985 Author Organization [place] Address [address] [place] [address] Care Team Providers Name Role Phone Sonny Murray MD Primary Care Provider Unavailable Reason for Visit Reason Comments Senior Sustainability Consultant Exam Encounter Details Date Type Department Care Team Description 06/27/2005 Office Visit [facility] Sonny Murray ROUTINE GY N EXAMINATION (Primary Dx); [facility] MD Yoel SCREENING FOR VENERAL DIS; Mobile CONTRACEPTIVE MANGMT NEC [address] [place] [phone] Social History Tobacco Use Types Packs/Day Years Used Date Never Smoker Alcohol Use Standard Drinks/Week Comments No 0 (1 standard drink = 0.6 oz pure alcoho l) Sex Assigned at Date Recorded Not on file documented as of this encounter Last Filed Vital Signs Vital Sign Reading Time Taken Comments Blood Pressure 100/76 06/27/2005 2:45 PM CASINO OPERATIONS SUPERVISOR Pulse - - Temperature - - Respiratory Rate - - Oxygen Saturation - - Inhaled Oxygen Concentration - - Weight 63.8 kg (140 lb 9.6 oz) 06/27/2005 2:45 PM CASINO OPERATIONS SUPERVISOR Height 168.9 cm (5' 6.5) 06/27/2005 2:45 PM CASINO OPERATIONS SUPERVISOR Body Mass Index 22.35 06/27/2005 2:45 PM CASINO OPERATIONS SUPERVISOR Body Mass Index Percentile 63.83 % 06/27/2005 2:45 PM CS T Growth Chart: CDC (Girls, 2-20 Years) documented in this encounter Progress Notes Sonny Murray - 06/27/2005 3:27 PM CST SUBJECTIVE: Rhonda Kirkland is a 18 year old, single female, P0 woman who presents for annual exam. Patient's last menstrual period was 06/10/2005. Menarche at age 15 y.o. Periods are irregular and 14 - 30 days, lasting 5 days, x 1 year. Dysmenorrhea none. Saturates 1 pad or tampon in 3 hours. Right breast lump x 5 days. Cyclic symptoms include bloating. Current contraception: none History of abnormal Pap smear: no Regular self breast exam: No Family history of breast cancer: no. Colon cancer no. Ovarian cancer no. History of abnormal lipids: no Previous Medical History: None on file There is no previous surgical history on file. MED: 1. ORTHO TRI-CYCLEN LO 0.025 MG OR TABS Route: Oral Si TABLET DAILY Dispense: 3 month Refill: 0 Review of the patient's allergies finds: No Known Drug Allergies Tobacco Use: Never Alcohol Use: No Review of Systems CONSTITUTIONAL:NEGATIVE EYES: NEGATIVE ENT/MOUTH: NEGATIVE RESP: NEGATIVE CV: NEGATIVE GI: NEGATIVE : NEGATIVE MUSCULOSKELATAL: NEGATIVE INTEGUMENTARY/SKIN: NEGATIVE BREAST: NEGATIVE NEURO: NEGATIVE. OBJECTIVE: BP 100/76 Ht 5' 6.5 (1.69m) Wt 140 lbs 9.6 oz (63.8kg) LMP 06/10/2005 General appearance: Healthy. Skin: Normal. Mental Status: [...] tenderness, uterus normal size and shape and uterusantiverted. 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 PLAN: 1) Pap smear 2) Mammography, lipids at appropriate intervals PE: reviewed health maintenance including diet, regular exercise and periodic exams. NO OPERATIONS SUPERVISOR Shiloh Duval - 06/27/2005 2:45 PM CASINO OPERATIONS SUPERVISOR Addended by: SHILOH DUVAL on: 06/27/2005 5:16:18 PM Modules accepted: Orders NO OPERATIONS SUPERVISOR documented in this encounter Nursing Notes 06/27/2005 2:45 PM CST >> SHILOH DUVAL 06/27/2005 2:58 pm Rhonda Kirkland presents for RHM.Last pap. 05/29. Pt c/o spotting between menses last month. Needs refill on BC.Shiloh Duval MA Initial BP 100/76 Ht 5' 6.5 (1.69m) Wt 140 lbs 9.6 oz (63.8kg) LMP 06/10/2005 Body Mass Indexis 22.36 kg/(m^2).. BP completed using cuff size: regular documented in this encounter Plan of Treatment Not on filedocumented as of this encounter Procedures Procedure Name Priority Date/Time Associated Diagnosis Comme nts CL HCG, URINE, NURSE Routine 06/27/2005 5:15 PM Routine Senior Sustainability Consultant R esults for this BACKOFFICE CASINO OPERATIONS SUPERVISOR Examination procedure are in Contraceptive Mangmt the res ults Nec section. CL AFF Routine 06/27/2005 4:12 PM Screening For Results for this N.GONORRHOEAE, DNA CASINO OPERATIONS SUPERVISOR Veneral Dis procedure are in AMP PROBE the results section. CL AFF CHLMYD TRACH, Routine 06/27/2005 4:12 PM Screening For Results for this DNA, AMP PROBE CASINO OPERATIONS SUPERVISOR Veneral Dis procedure are in the results section. HCL PAP THIN LAYER Routine 06/27/2005 12:00 Routine Senior Sustainability Consultant Resul ts for this SCREEN AM CASINO OPERATIONS SUPERVISOR Examination procedure are i n the results section. documented in this encounter Results HCG, URINE, NURSE BACKOFFICE (06/27/2005 5:15 PM CASINO OPERATIONS SUPERVISOR) athologist Signature HCG Qual Urine negative [facility] Specimen (Source) Anatomical Collection Method Collection Time Re ceived Time Location / / Volume Laterality Urine specimen 06/27/2005 5:15 PM (specimen) CASINO OPERATIONS SUPERVISOR Sonny Murray MD LABORATORY Performing Organization Address City/State/ZIP Code Phon e Number [facility] CHLMYD TRACH, DNA, AMP PROBE (06/27/2005 4:12 PM CASINO OPERATIONS SUPERVISOR) Component Value Ref Test Analysis Performed At [facility] Method Time Signature Specimen [place] LABS Chlamydia Negative for C. trachomatis rRNA by chief engineer mediated amplification. [facility] Trachomatis A negative result by transc ription mediated amplification does not preclude the [place] PCR presence of C. trachomatis infection because results are dependent on proper CAMPUS LABS and adequate collection, absence of inhibitors, and suffici ent rRNA to be detected. Specimen Anatomical Collection Method Collection Time Receive d Time (Source) Location / / Volume Laterality 06/27/2005 4:12 PM 6 4:17 CASINO OPERATIONS SUPERVISOR PM CASINO OPERATIONS SUPERVISOR Sonny Murray MD LABORATORY Performing Organization Address City/[facility]/ZIP Code Phon e Number [address] LABS N.GONORRHOEAE, DNA, (GC) (06/27/2005 4:12 PM CASINO OPERATIONS SUPERVISOR) Component Value Ref Test Analysis Performed At [facility] Method Time Signature Specimen [place] LABS N Gonorrhea Negative for N. gonorrhoeae rRNA by chief engineer mediated amplification. [facility] PCR A negative result by transc ription mediated amplification does not preclude the [place] presence of N. gonorrhoeae infection because re sults are dependent on proper CAMPUS LABS and adequate collection, absence of inhibitors, and suffici ent rRNA to be detected. Specimen Anatomical Collection Method Collection Time Receive d Time (Source) Location / / Volume Laterality 06/27/2005 4:12 PM 6 4:17 CASINO OPERATIONS SUPERVISOR PM CASINO OPERATIONS SUPERVISOR Sonny Murray MD LABORATORY Performing Organization Address City/[facility]/ZIP Code Phon e Number [address] LABS A THIN LAYER PAP SCREEN (06/27/2005 12:00 AM CASINO OPERATIONS SUPERVISOR) Component Value Ref Test Analysis Performed At [facility] Method Time Signature PAP NIL COPATH Copath Report COPATH Patient Name: RHONDA KIRKLAND MR#: [id number] Specimen #: [id number] Collected: 06/27/2005 Received: 06/30/2005 Reported: 07/01/2005 10:44 Ordering Phy(s): SONNY MURRAY SPECIMEN/STAIN PROCESS: Pap thin layer prep screening (SurePath) ? Pap-Cyto x 1, Reflex HPV x 1 SOURCE: Cervical, endocervical ---- Pap thin layer prep screening (SurePath) SPECIMEN ADEQUACY: Satisfactory for evaluation. -Transitional zone component present. CYTOLOGIC INTERPRETATION: Negative for Intraepithelial Lesion or Malignancy Electronically signed out by: GRANT Hinson (ASCP) Processed and screened at [facility] CLINICAL HISTORY: LMP: 06-10-05 Oral Control Pill, Previous normal pap Date of Last Pap: 06-24-04, TESTING LAB LOCATION: [address] ??[phone] COLLECTION SITE: Client: ??[facility] Location: RIOB (R) Specimen (Source) Anatomical Collection Method Collection Time Re ceived Time Location / / Volume Laterality 06/27/2005 06/30/2005 9:25 AM CASINO OPERATIONS SUPERVISOR Sonny Murray MD LABORATORY Performing Organization Address City/State/ZIP Code Phon e Number COP[place] documented in this encounter Visit Diagnoses Diagnosis Routine gynecological examination - Prim steve Screening examination for venereal disea se Other general counseling and advice for contraceptive management documented in this encounter Care Teams Tester Regulator Relationship Specialty Start Date End Date Sonny Murray MD PCP - General 06/24/0410/19 documented as of this encounter
--- OUTSIDE RECORDS SUMMARY | 2022-01-03 08:26 | XMS_ITS | Encounter Summary ---
:1985 Author Organization [place] Address [address] [place] [id number] Care Team Providers Name Role Phone Morris Murray MD Primary Care Provider Unavailable Encounter Details Date Type Department Care Team Description 05/03/2007 Historic Results INTERFACED REPORT Sherrie Steele MD [facility] [place] [phone] Social History Tobacco Use Types Packs/Day Years Used Date Never Smoker Alcohol Use Standard Drinks/Week Comments No 0 (1 standard drink = 0.6 oz pure alcoho l) Sex Assigned at Date Recorded Not on file documented as of this encounter Plan of Treatment Not on filedocumented as of this encounter Procedures Procedure Name Priority Date/Time Associated Comments Diagnosis HEMOGRAM DIFFERENTIAL STAT 05/03/2007 11:56 Re sults for this AND PLATELET PM STONE DRILLER procedure are i n the results section. BASIC METABOLIC PANEL STAT 05/03/2007 11:56 Re sults for this PM STONE DRILLER procedure are i n the results section. HCG QUALITATIVE URINE STAT 05/03/2007 11:50 Re sults for this PM STONE DRILLER procedure are i n the results section. UA MACROSCOPIC WITH STAT 05/03/2007 11:50 Resu lts for this REFLEX TO MICRO PM STONE DRILLER procedure ar e in the results section. documented in this encounter Results Hemogram differential and platelet (05/03/2007 11:56 PM STONE DRILLER) [facility] Method Time Signature MCV 93 78 - 100 [facility] fl MCH 31.1 26.5 - [facility] 33.0 pg MCHC 33.6 31.5 - [facility] 36.5 g/dL RDW 12.8 10.0 - [facility] 15.0 % WBC 7.4 4.0 - [facility] 11.0 10e9/L RBC Count 4.53 3.8 - 5.2 [facility] 10e12/L Hemoglobin 14.1 11.7 - [facility] 15.7 g/dL Hematocrit 42.0 35.0 - [facility] 47.0 % % Neutrophils 61 40 - 75 % [facility] % Lymphocytes 26 20 - 48 % [facility] % Monocytes 11 0 - 12 % [facility] % Eosinophils 2 0 - 6 % [facility] % Basophils 0 0 - 2 % [facility] Platelet Count 335 150 - 450 [facility] 10e9/L Absolute 4.5 1.6 - 8.3 [facility] Neutrophil 10e9/L Absolute 1.9 0.8 - 5.3 [facility] Lymphocytes 10e9/L Absolute 0.8 0.0 - 1.3 [facility] Monocytes 10e9/L Absolute 0.2 0.0 - 0.7 [facility] Eosinophils 10e9/L Absolute 0.0 0.0 - 0.2 [facility] Basophils 10e9/L Diff Method Automated [facility] Method Specimen Anatomical Collection Method Collection Time Receive d Time (Source) Location / / Volume Laterality 05/03/2007 11:56 05/04/2007 PM STONE DRILLER 12:03 AM STONE DRILLER Malachi Steele MD LAB - BLOOD ORDERABLES Performing Organization Address City/State/ZIP Code Phon e Number [facility] (ABNORMAL) Basic metabolic panel (05/03/2007 11:56 PM STONE DRILLER) Analysis Performed At Patho logist Time Signature Sodium 141 133 - 144 [facility] mmol/L Potassium 3.7 3.4 - 5.3 [facility] mmol/L Chloride 105 96 - 110 [facility] mmol/L Carbon Dioxide 29 20 - 32 [facility] mmol/L Glucose 86 60 - 99 [facility] mg/dL Urea Nitrogen 16 5 - 24 [facility] mg/dL Creatinine 1.32 (H) 0.60 - [facility] 1.20 mg/dL GFR Estimate 55 (L) >60 [facility] mL/min/1.7 m2 GFR Estimate If 67 >60 [facility] Black mL/min/1.7 m2 Calcium 9.3 8.7 - 10.8 [facility] mg/dL Anion Gap 7 6 - 17 [facility] mmol/L Specimen Anatomical Collection Method Collection Time Receive d Time (Source) Location / / Volume Laterality 05/03/2007 11:56 05/04/2007 PM STONE DRILLER 12:03 AM STONE DRILLER Malachi Steele MD LAB - BLOOD ORDERABLES Performing Organization Address [facility] Phon e Number [facility] UA macroscopic with reflex to micro (05/03/2007 11:50 PM STONE DRILLER) Patholo gist Method Time Signature Source Midstream [facility] Urine Color Urine Yellow [facility] Appearance Urine Clear [facility] Glucose Urine Negative NEG mg/dL [facility] Bilirubin Urine Negative NEG [facility] Ketones Urine Negative NEG mg/dL [facility] Specific [place] <=1.005 1.003 - [facility] Urine 1.035 Blood Urine Negative NEG [facility] pH Urine 6.5 5.0 - 7.0 [facility] pH Protein Albumin Negative NEG mg/dL [facility] Urine Urobilinogen 0.2 0.2 - 1.0 [facility] Urine EU/dL Nitrite Urine Negative NEG [facility] Leukocyte Negative NEG [facility] Esterase Urine Specimen Anatomical Collection Method Collection Time Receive d Time (Source) Location / / Volume Laterality 05/03/2007 11:50 05/04/2007 PM STONE DRILLER 12:03 AM STONE DRILLER Malachi Steele MD LAB - URINE ORDERABLES Performing Organization Address City/[facility] Phon e Number [facility] HCG qualitative urine (05/03/2007 11:50 PM STONE DRILLER) P athologist Signature HCG Qual Urine Negative NEG [facility] Specimen Anatomical Collection Method Collection Time Receive d Time (Source) Location / / Volume Laterality 05/03/2007 11:50 05/04/2007 PM STONE DRILLER 12:03 AM STONE DRILLER Malachi Steele MD LAB - URINE ORDERABLES Performing Organization Address City/[facility] Phon e Number [facility] documented in this encounter Visit Diagnoses Not on filedocumented in this encounter Care Teams Retail And Restaurant Associate Relationship Specialty Start Date End Date Morris Murray MD PCP - General 06/24/0410/19 documented as of this encounter
--- OUTSIDE RECORDS SUMMARY | 2022-01-03 08:26 | XMS_ITS | Encounter Summary ---
:1985 Author Organization [place] Address [address] [place] [address] Care Team Providers Name Role Phone Sonny Murray MD Primary Care Provider Unavailable Reason for Visit Reason Comments Software Trainer Exam Encounter Details Date Type Department Care Team Description 06/29/2006 Office Visit [facility] Sonny Murray ROUTINE GY N [facility] MD Yoel EXAMINATION ( Primary [place] Dx) [address] [place] [address] Social History Tobacco Use Types Packs/Day Years Used Date Never Smoker Alcohol Use Standard Drinks/Week Comments No 0 (1 standard drink = 0.6 oz pure alcoho l) Sex Assigned at Date Recorded Not on file documented as of this encounter Last Filed Vital Signs Vital Sign Reading Time Taken Comments Blood Pressure 102/68 06/29/2006 6:00 PM PUMPER GAGER Pulse - - Temperature - - Respiratory Rate - - Oxygen Saturation - - Inhaled Oxygen Concentration - - Weight 63.7 kg (140 lb 6.4 oz) 06/29/2006 6:00 PM PUMPER GAGER Height 167.6 cm (5' 6) 06/29/2006 6:00 PM PUMPER GAGER Body Mass Index 22.66 06/29/2006 6:00 PM PUMPER GAGER Body Mass Index Percentile 63.54 % 06/29/2006 6:00 PM CS T Growth Chart: CDC (Girls, 2-20 Years) documented in this encounter Progress Notes Sonny Murray - 06/29/2006 6:23 PM CST SUBJECTIVE: hRonda Kirkland is a 20 year old, single female, P0 woman who presents for annual exam. Patient's last menstrual period was 06/11/2006. Menarche at age 15 y.o. Periods are [...] Rx Name Route Sig Dispense Refill ??? ORTHO TRI-CYCLEN LO 0.025 MG OR TABS Oral 1 TABLET DAILY 3 month 3 Allergies Allergen Reactions ??? No Known Drug Allergies History Substance Use Topics ??? Tobacco Use: Never ??? Alcohol Use: No Review of Systems CONSTITUTIONAL:NEGATIVE EYES: NEGATIVE ENT/MOUTH: NEGATIVE RESP: NEGATIVE CV: NEGATIVE GI: NEGATIVE : NEGATIVE MUSCULOSKELATAL: NEGATIVE INTEGUMENTARY/SKIN: NEGATIVE BREAST: NEGATIVE NEURO: NEGATIVE. OBJECTIVE: BP 102/68 Ht 5' 6 (1.68m) Wt 140 lbs 6.4 oz (63.7kg) LMP 06/11/2006 General appearance: Healthy. Skin: Normal. Mental Status: [...] and uterusantiverted. Extremities: Normal ASSESSMENT: Satisfactory annual co founder exam. PLAN: 1) Pap smear 2) Mammography, lipids at appropriate intervals 3) Discussed HPV vaccination. 4) Bloating, raul PE: reviewed health maintenance including diet, regular exercise and periodic exams. ER GAGER documented in this encounter Nursing Notes 06/29/2006 6:00 PM CST >> SHILOH DUVAL 06/29/2006 5:49 pm Rhonda Kirkland presents for RHM.Last pap 06/30. Pt would like to discuss BC.Shiloh Duval MA Initial BP 102/68 Ht 5' 6 (1.68m) Wt 140 lbs 6.4 oz (63.7kg) LMP 06/11/2006 Body mass index is 22.67 kg/(m^2).. BP completed using cuff size: regular documented in this encounter Plan of Treatment Not on filedocumented as of this encounter Procedures Procedure Name Priority Date/Time Associated Diagnosis Comme nts CL AFF Routine 06/29/2006 7:36 PM Routine Software Trainer Results f or this N.GONORRHOEAE, DNA PUMPER GAGER Examination procedure are in AMP PROBE the results section. CL AFF CHLMYD Routine 06/29/2006 7:36 PM Routine Software Trainer Results for this TRACH, DNA, AMP PUMPER GAGER Examination procedure ar e in PROBE the results section. HCL PAP THIN LAYER Routine 06/29/2006 12:00 AM Routine Software Trainer Re sults for this SCREEN PUMPER GAGER Examination procedure are i n the results section. documented in this encounter Results CHLMYD TRACH, DNA, AMP PROBE (06/29/2006 7:36 PM PUMPER GAGER) Component Value Ref Test Analysis Performed At [facility] DigitalPost Interactive Method Time Signature Specimen [place] [facility] LABS Chlamydia Negative for C. trachomatis rRNA by calender operator helper mediated amplification. [facility] Trachomatis A negative result by transc ription mediated amplification does not preclude the [place] PCR presence of C. trachomatis infection because results are dependent on proper CAMPUS LABS and adequate collection, absence of inhibitors, and suffici ent rRNA to be detected. Specimen Anatomical Collection Method Collection Time Receive d Time (Source) Location / / Volume Laterality 06/29/2006 7:36 PM 7 7:41 PUMPER GAGER PM PUMPER GAGER Sonny Murray MD LABORATORY Performing Organization Address City/State/ZIP Code Phon e Number [facility] [address] [place], [place] [id number] [place] [address] LABS N.GONORRHOEAE, DNA, (GC) (06/29/2006 7:36 PM PUMPER GAGER) Component Value Ref Test Analysis Performed At [facility] [employer] Range Method Time Signature Specimen [place] [facility] LABS N Gonorrhea Negative for N. gonorrhoeae rRNA by calender operator helper mediated amplification. [facility] PCR A negative result by transc ription mediated amplification does not preclude the [place] presence of N. gonorrhoeae infection because re sults are dependent on proper CAMPUS LABS and adequate collection, absence of inhibitors, and suffici ent rRNA to be detected. Specimen Anatomical Collection Method Collection Time Receive d Time (Source) Location / / Volume Laterality 06/29/2006 7:36 PM 7:41 PUMPER GAGER PM PUMPER GAGER Sonny Murray MD LABORATORY Performing Organization Address City/State/ZIP Code Phon e Number [facility] [address] [place], [place] [phone] [place] [address] LABS A THIN LAYER PAP SCREEN (06/29/2006 12:00 AM PUMPER GAGER) Component Value Ref Test Analysis Performed At [facility] Range Method Time Signature PAP NIL COPATH Copath Report COPATH Patient Name: RHONDA KIRKLAND MR#: [id number] Specimen #: [id number] Collected: 06/29/2006 Received: 06/30/2006 Reported: 07/01/2006 10:54 Ordering Phy(s): SONNY MURRAY SPECIMEN/STAIN PROCESS: Pap thin layer prep screening (SurePath) ? Pap-Cyto x 1, Reflex HPV x 1 SOURCE: Cervical, endocervical ---- Pap thin layer prep screening (SurePath) SPECIMEN ADEQUACY: Satisfactory for evaluation. -Transformation zone component present. CYTOLOGIC INTERPRETATION: Negative for Intraepithelial Lesion or Malignancy Electronically signed out by: JOHNNIE Casiano (ASCP) [facility]IN[facility] H[facility]: LMP: 1-18- Oral Control Pill, Previous normal pap Date of Last Pap: 06-27-05, TESTING LAB LOCATION: [address] ??[phone] COLLECTION SITE: Client: ??[facility] Location: RIOB (R) Specimen (Source) Anatomical Collection Method Collection Time Re ceived Time Location / / Volume Laterality 06/29/2006 06/30/2006 1:35 PM PUMPER GAGER Sonny Murray MD LABORATORY Performing Organization Address City/State/ZIP Code Phon e Number [place] documented in this encounter Visit Diagnoses Diagnosis Routine gynecological examination - Prim steve documented in this encounter Care Teams Tail Board Man Relationship Specialty Start Date End Date Sonny Murray MD PCP - General 06/24/0410/19 documented as of this encounter
--- OUTSIDE RECORDS SUMMARY | 2022-01-03 08:26 | XMS_ITS | Encounter Summary ---
:1985 Author Organization [place] Address [address] [place] [address] Care Team Providers Name Role Phone Morris Murray MD Primary Care Provider Unavailable Encounter Details Date Type Department Care Team Description 04/20/2005 Historic Results INTERFACED REPORT Interface, Ra jarrett MD Social History Tobacco Use Types Packs/Day Years Used Date Never Smoker Alcohol Use Standard Drinks/Week Comments No 0 (1 standard drink = 0.6 oz pure alcoho l) Sex Assigned at Date Recorded Not on file documented as of this encounter Plan of Treatment Not on filedocumented as of this encounter Procedures Procedure Name Priority Date/Time Associated Comments Diagnosis HCG QUALITATIVE URINE STAT 04/20/2005 11:40 Re sults for this PM WRAPPING MACHINE TENDER procedure are i n the results section. UA MACROSCOPIC WITH STAT 04/20/2005 11:40 Resu lts for this REFLEX TO MICRO PM WRAPPING MACHINE TENDER procedure ar e in the results section. URINE MICROSCOPIC Routine 04/20/2005 11:40 Result s for this EXAM PM WRAPPING MACHINE TENDER procedure are i n the results section. URINE CULTURE Routine 04/20/2005 11:40 Results fo r this PM WRAPPING MACHINE TENDER procedure are i n the results section. documented in this encounter Results (ABNORMAL) UA macroscopic with reflex to micro (04/20/2005 11:40 PM WRAPPING MACHINE TENDER) Component Value Ref Test Analysis Performed At [facility] Range Method Time Signature Source Unspecified MISYS Urine Color Urine Yellow MISYS Appearance Urine Clear MISYS Glucose Urine Negative NEG MISYS mg/dL Bilirubin Urine Negative NEG MISYS Ketones Urine Negative NEG MISYS mg/dL Specific [place] 1.020 1.003 - MISYS Urine 1.035 Blood Urine Trace (A) NEG MISYS pH Urine 5.0 5.0 - MISYS 7.0 pH Protein Albumin Negative NEG MISYS Urine mg/dL Urobilinogen 0.2 0.2 - MISYS Urine 1.0 EU/dL Nitrite Urine Negative NEG MISYS Leukocyte Negative NEG MISYS Esterase Urine Specimen Anatomical Collection Method Collection Time Receive d Time (Source) Location / / Volume Laterality 04/20/2005 11:40 04/20/2005 PM WRAPPING MACHINE TENDER 11:41 PM WRAPPING MACHINE TENDER [facility] - URINE ORDERABLES Performing Organization Address [facility] Phon e Number MISYS HCG qualitative urine (04/20/2005 11:40 PM WRAPPING MACHINE TENDER) athologist Signature HCG Qual Urine Negative NEG MISYS Specimen Anatomical Collection Method Collection Time Receive d Time (Source) Location / / Volume Laterality 04/20/2005 11:40 04/20/2005 PM WRAPPING MACHINE TENDER 11:41 PM WRAPPING MACHINE TENDER [facility] - URINE ORDERABLES Performing Organization Address [facility] Phon e Number MISYS Microscopic exam urine (04/20/2005 11:40 PM WRAPPING MACHINE TENDER) athologist Signature WBC Urine O - 2 0 - 2 /HPF MISYS RBC Urine O - 2 0 - 2 /HPF MISYS Specimen Anatomical Collection Method Collection Time Receive d Time (Source) Location / / Volume Laterality 04/20/2005 11:40 04/20/2005 PM WRAPPING MACHINE TENDER 11:54 PM WRAPPING MACHINE TENDER [facility] - URINE ORDERABLES Performing Organization Address [facility] Phon e Number MISYS Urine culture (04/20/2005 11:40 PM WRAPPING MACHINE TENDER) [facility] Method Time Signature Specimen Unspecified MISYS Description Urine Culture Micro No growth MISYS Micro Report FINAL [id number] MISYS Status Specimen Anatomical Collection Method Collection Time Receive d Time (Source) Location / / Volume Laterality 04/20/2005 11:40 04/21/2005 PM WRAPPING MACHINE TENDER 12:13 AM WRAPPING MACHINE TENDER Marcela Parks MD LAB - MICRO GENERAL ORDERABL ES Performing Organization Address [facility] Phon e Number MISYS documented in this encounter Visit Diagnoses Not on filedocumented in this encounter Care Teams Correctional Security Officer Relationship Specialty Start Date End Date Morris Murray MD PCP - General 06/24/0410/19 documented as of this encounter
--- OUTSIDE RECORDS SUMMARY | 2022-01-03 08:26 | XMS_ITS | Encounter Summary ---
:1985 Author Organization [place] Address [address] [place] [address] Care Team Providers Name Role Phone Morris Murray MD Primary Care Provider Unavailable Encounter Details Date Type Department Care Team Description 05/03/2007 Emergency room Delvin Coreas MD EMERGENCY PHYSIC [address] [phone] (Wo rk) Social History Tobacco Use Types Packs/Day Years Used Date Never Smoker Alcohol Use Standard Drinks/Week Comments No 0 (1 standard drink = 0.6 oz pure alcoho l) Sex Assigned at Date Recorded Not on file documented as of this encounter Progress Notes Delvin Coreas - 05/28/2007 4:50 PM GLORY HOLE TENDER FINAL ADDENDUM: I was contacted by Dr. Odell Gale regarding the CT scan of Rhonda Kirkland. She was seen by Dr. Roth last evening. Please see his not entire note. There was concern for possible hematogenous interstitial pyelonephritis. Ms. Kirkland was not sent home with any antibiotics. I did review her records which showed a normal urine. I called her on the phone, she was feeling better, still having some nausea, no fevers. I called in a prescription in to [facility] in [place] of Cipro 500 mgb.i.d. for 2 weeks. I told her to take the full 2-week course. She should receive 2 doses today. If she is showing no improvement or worsening symptoms, she should return to the Emergency Department or see her regular doctor. We will continue all discharge instructions given by Dr. Roth. Electronically signed on 05/28/2007 16:49 by DELVIN COREAS MD MT: crys Name: RHONDA KIRKLAND Account: [id number] : 1985 Visit Date: 05/03/2007 Document: [id number] cc: Primary Y HOLE TENDER documented in this encounter Plan of Treatment Not on filedocumented as of this encounter Visit Diagnoses Not on filedocumented in this encounter Care Teams Home Care Physical Therapist Relationship Specialty Start Date End Date Morris Murray MD PCP - General 06/24/0410/19 documented as of this encounter
--- OUTSIDE RECORDS SUMMARY | 2022-01-03 08:26 | XMS_ITS | Encounter Summary ---
:1985 Author Organization [place] Address [address] [place] [address] Care Team Providers Name Role Phone Morris Murray MD Primary Care Provider Unavailable Reason for Visit Reason Onset Date Comments Refill Request 03/25/2005 Encounter Details Date Type Department Care Team Description 03/25/2005 Refill [facility] Women[facility] Morris Murray MD Refill Request Clinic [address] [place] [address] Social History Tobacco Use Types Packs/Day Years Used Date Never Smoker Alcohol Use Standard Drinks/Week Comments No 0 (1 standard drink = 0.6 oz pure alcoho l) Sex Assigned at Date Recorded Not on file documented as of this encounter Miscellaneous Notes Telephone Encounter - Morris Murray - 03/25/2005 3:38 PM CST faxed [employer] Telephone Encounter - Saumya Shaver - 03/25/2005 10:09 AM CST Faxed refill request received. requesting supply for #[phone]. Last pap 06/24/04. [employer] documented in this encounter Plan of Treatment Not on filedocumented as of this encounter Visit Diagnoses Not on filedocumented in this encounter Care Teams Cyber Forensic Specialist Relationship Specialty Start Date End Date Morris Murray MD PCP - General 06/24/0410/19 documented as of this encounter
--- OUTSIDE RECORDS SUMMARY | 2022-01-03 08:26 | XMS_ITS | Encounter Summary ---
:1985 Author Organization [place] Address [address] [place] [address] Care Team Providers Name Role Phone Morris Murray MD Primary Care Provider Unavailable Reason for Visit Reason Onset Date Comments Refill Request 06/16/2006 dhaval dawn Encounter Details Date Type Department Care Team Description 06/16/2006 Refill [facility] Morris Murray, Ref ill Request ([facility] MD rich dawn) [address] [place] [address] [place] [address] Social History Tobacco Use Types Packs/Day Years Used Date Never Smoker Alcohol Use Standard Drinks/Week Comments No 0 (1 standard drink = 0.6 oz pure alcoho l) Sex Assigned at Date Recorded Not on file documented as of this encounter Miscellaneous Notes Telephone Encounter - Saumya Shaver - 06/19/2006 11:51 AM CST Patient advised of MD haley. Pt transferred to [facility] to schedule annual exam. Saumya Shaver RN TER [employer] Telephone Encounter - Morris Murray - 06/19/2006 9:47 AM CST Please notify patient. Refill faxed, but she does needs a [facility] appointment prior to further refills. [facility] [employer] Telephone Encounter - Adia Paniagua - 06/17/2006 11:37 AM CST Pharm faxing 2nd refill request. [facility] [employer] Telephone Encounter - Adia Paniagua - 06/16/2006 10:40 AM CST Pharmacy faxing refill request. Last pap 06/27/05. [facility] [employer] documented in this encounter Plan of Treatment Not on filedocumented as of this encounter Visit Diagnoses Not on filedocumented in this encounter Care Teams Undercoat Sprayer Relationship Specialty Start Date End Date Morris Murray MD PCP - General 06/24/0410/19 documented as of this encounter
--- OUTSIDE RECORDS SUMMARY | 2022-01-03 08:26 | XMS_ITS | Encounter Summary ---
:1985 Author Organization [place] Address [address] [place] [address] Care Team Providers Name Role Phone Morris Murray MD Primary Care Provider Unavailable Encounter Details Date Type Department Care Team Description 04/20/2005 Emergency room [place] EMERGENCY PHYSIC [facility] [address] [place] [address] (Wo rk) Social History Tobacco Use Types Packs/Day Years Used Date Never Smoker Alcohol Use Standard Drinks/Week Comments No 0 (1 standard drink = 0.6 oz pure alcoho l) Sex Assigned at Date Recorded Not on file documented as of this encounter Progress Notes Interface, Charging Plug Placer - 04/20/2005 11:59 PM RIBBING MACHINE OPERATOR PRELIMINARY CHIEF COMPLAINT: Abdominal pain. HISTORY OF PRESENT ILLNESS: Rhonda is a very healthy 19-year-old female who was well earlier in theday and then felt bladder discomfort. She had urinary frequency. She had no actual alfred abdominal pain on urinating, so no dysuria, but right before the sensation to urinate, she would have a suprapubic pain that would resolve after she urinated, but no dysuria. She has been afebrile, mild nausea andno vomiting. No vaginal discharge. No back pain. She is here for what she believes to be possibly urinary tract infection. Of significance, her mother said that when she gets UTIs, she also does not have actual dysuria, but will have slight abdominal pain prior to urination, which ends after urination. Rhonda is not in any discomfort now, has no belly pain at the time of the ER visit. PAST MEDICAL HISTORY: Healthy. No hospitalization. MEDICATIONS: control pills only. ALLERGIES: No known drug allergies. PRIMARY MEDICAL DOCTOR: [facility]. IMMUNIZATIONS: Up-to-date. FAMILY HISTORY: Noncontributory. SOCIAL HISTORY: Lives with her family. REVIEW OF SYSTEMS: Positive for GASTROINTESTINAL: History of belly pain that resolves prior to urinating. No belly pain currently. Mild nausea. Still maintaining p.o. well. No vomiting. : Urinary frequency. No dysuria. No vaginal discharge. CONSTITUTIONAL: Negative for fever. MUSCULOSKELETAL: Negative for back pain. All other systems are completely negative. PHYSICAL EXAMINATION: VITAL SIGNS: Temperature 96.9, respirations 16, pulse 75, BP 118/84 and room air pulse ox 98%. GENERAL: Rhonda appears well in no distress and well hydrated. SKIN: No rashes or lesions. HEENT: Eyes are clear without injection or discharge. TMs mcmahon bilaterally. Nares, no discharge. Oropharynx, no injection and moist mucous membranes. NECK: Supple. LUNGS: Clear to auscultation in all koo. Breath sounds are equal bilaterally. Excellent air exchange. HEART: Regular rate and rhythm without murmur. ABDOMEN: Very soft, nontender and nondistended. No guarding. No rebound. No organomegaly appreciated. There is very mild suprapubic tenderness to very deep palpation. MUSCULOSKELETAL: No CVA tenderness. EXTREMITIES: Without clubbing, cyanosis, edema or deformities. NEUROLOGIC: Very alert, age appropriate and nonfocal. EMERGENCY DEPARTMENT COURSE: She did provide urine, which had trace blood, otherwise, no leukocyte esterase and nitrites. Urine hCG was negative and urine also had 0 rbc's and 0 wbc's. Her ED course was unremarkable. I did tell her and mom that currently she has no belly pain and the urine looks good, there is a very little chance that this will be positive for urine culture, but nonetheless, she should drink plenty of fluids and if any symptoms worsen, she needs to follow with her PMD. The ED course was unremarkable. She was comfortable when she was here. DIAGNOSIS: Urinary frequency and suprapubic tenderness. PLAN: Follow up with PMD for any worsening of symptoms, especially fever, back pain, vomiting or persistence of suprapubic tenderness relieved with urination within the next 24-48 hours, definitely follow for any worsening symptoms. There are no questions or concerns. These were addressed. GERALD CARDOSO MD MT: VIOLET Name: RHONDA KIRKLAND Account: [id number] : 1985 Visit Date: 04/20/2005 Document: [id number] ING MACHINE OPERATOR documented in this encounter Plan of Treatment Not on filedocumented as of this encounter Visit Diagnoses Not on filedocumented in this encounter Care Teams Scientific Publications Editor Relationship Specialty Start Date End Date Morris Murray MD PCP - General 06/24/0410/19 documented as of this encounter
--- OUTSIDE RECORDS SUMMARY | 2022-01-03 08:26 | XMS_ITS | Encounter Summary ---
:1985 Author Organization [place] Address [address] [place] [address] Care Team Providers Name Role Phone Morris Murray MD Primary Care Provider Unavailable Reason for Visit Reason Onset Date Comments Refill Request 06/10/2005 Encounter Details Date Type Department Care Team Description 06/10/2005 Refill [facility] Women[facility] Morris Murray MD Refill Request [address] [place] [address] Social History Tobacco Use Types Packs/Day Years Used Date Never Smoker Alcohol Use Standard Drinks/Week Comments No 0 (1 standard drink = 0.6 oz pure alcoho l) Sex Assigned at Date Recorded Not on file documented as of this encounter Miscellaneous Notes Telephone Encounter - Morris Murray - 06/12/2005 4:40 PM CST faxed ATOLOGICAL SURGEON Telephone Encounter - Saumya Shaver - 06/10/2005 9:39 AM CST Faxed refill request received. requesting supply for #[phone]. Last pap 06/24/04. Apt 06/27/05. Saumya Shaver RN ATOLOGICAL SURGEON documented in this encounter Plan of Treatment Not on filedocumented as of this encounter Visit Diagnoses Not on filedocumented in this encounter Care Teams Bindery Production Manager Relationship Specialty Start Date End Date Morris Murray MD PCP - General 06/24/0410/19 documented as of this encounter
--- OUTSIDE RECORDS SUMMARY | 2022-01-03 08:26 | XMS_ITS | Encounter Summary ---
:1985 Author Organization [place] Address [address] [place] [address] Care Team Providers Name Role Phone Morris Murray MD Primary Care Provider Unavailable Encounter Details Date Type Department Care Team Description 05/03/2007 Emergency room Jayy Roth MD EMERGENCY PHYSIC [address] [phone] (Wo rk) Social History Tobacco Use Types Packs/Day Years Used Date Never Smoker Alcohol Use Standard Drinks/Week Comments No 0 (1 standard drink = 0.6 oz pure alcoho l) Sex Assigned at Date Recorded Not on file documented as of this encounter Progress Notes Jayy Roth - 05/11/2007 3:25 PM CORPORATE SAFETY MANAGER FINAL CHIEF COMPLAINT: Abdominal pain. HISTORY OF PRESENT ILLNESS: Rhonda Kirkland is a 21-year-old female who comes in by private vehiclefor further evaluation of abdominal pain, it started on the right side about 7:30 tonight, arriving here at about 2330 hours. She says it is sharp, crampy pain and radiates to her back. It has been on and off in duration. She has had some nausea that started earlier in the day, but no vomiting. Her last bowel movement was a couple hours prior to the pain starting and it was normal. No bright red blood per rectum or melena. No fevers or chills. No dysuria or urinary hesitancy or hematuria. She has had some increased urinary frequency today. No vaginal bleeding or abnormal discharge. Her period ended3 days ago. She has never had this pain before. She says her last sexual contact was about a month ago. PAST MEDICAL HISTORY: Negative. MEDICATIONS: None. ALLERGIES: No known drug allergies. SOCIAL HISTORY: Smokes a few cigarettes per day. Denies drug or alcohol use. REVIEW OF SYSTEMS: See HPI. All others are negative. PHYSICAL EXAMINATION: VITAL SIGNS: Afebrile at 97.0, blood pressure 118/82, heart rate 79, respiratory rate 14, satting 98-99% on room air. GENERAL: This a very pleasant young female who is awake, alert, cooperative, nontoxic in appearance. HEENT: Head is atraumatic. Eyes - pupils are equal and reactive. Sclerae nonicteric. Conjunctivae normal in appearance. NECK: Supple and nontender. CARDIAC: Regular rate and rhythm. No murmurs, rubs or gallops appreciated. LUNGS: Clear to auscultation bilaterally. ABDOMEN: Positive bowel sounds, soft. She does have some tenderness to palpation in the right side of her abdomen, most of it being in the right lower quadrant region. No masses are appreciated. No rebound or guarding. BACK: Atraumatic and nontender. EXTREMITIES: Normal. LABORATORY VALUES AND STUDIES: UA is negative. UPT is negative. CBC is within normal limits. Basic metabolic panel within normal limits with exception of a slightly elevated creatinine of 1.32. CT scan of her abdomen and pelvis with IV and oral contrast was negative for anything acute, including a normal looking appendix. No adnexal cysts. EMERGENCY DEPARTMENT COURSE: The patient was seen and examined. She had a UA, UPT obtained. She hadan IV established. Bloods were drawn and sent. She initially did not want anything for pain or nausea, but later on did change her mind. She was given a liter of normal saline through her IV, followed by a second liter of normal saline because her creatinine was slightly elevated. This was to help rehydrate her. She was subsequently given Zofran x2 for her nausea and a little bit of morphine IV for her pain. My differential included appendicitis, UTI, kidney stone, also ovarian pathology such as ovarian cysts, wanted to rule out ectopic , which essentially was ruled out with a negative test, biliary colic would also be in the differential. I was concerned about appendicitis, considering the location of her pain and therefore I did proceed with a CT scan, which did not show anything acute. I did proceed to do my own limited bedside ultrasound of her gallbladder as well which was normal. At this point, I did reexamine her. She continues to have some pain in the right lower quadrant region, but no peritoneal signs. It is possible that she has an early appendicitis. I do not think she has ovarian torsion and they did not see any ovarian pathology on the CT scan so I do not feel that ultrasound is warranted. I am going to send her home with a prescription for Vicodin quantity of 20 and Zofran quantity of 9. I instructed her to return here for recheck in 12-24 hours if her symptoms have not improved and certainly if her pain worsens or if she continues to vomit despite the Zofran or develops any fever sheshould return here sooner. She is comfortable with this plan. IMPRESSION: 1. Abdominal pain. 2. Nausea. Electronically signed on 05/11/2007 15:24 by JAYY ROTH MD MT: crys Name: RHONDA KIRKLAND Account: [id number] : 1985 Visit Date: 05/03/2007 Document: [id number] cc: Primary ORATE SAFETY MANAGER documented in this encounter Plan of Treatment Not on filedocumented as of this encounter Visit Diagnoses Not on filedocumented in this encounter Care Teams Motor Scooter Mechanic Relationship Specialty Start Date End Date Morris Murray MD PCP - General 06/24/0410/19 documented as of this encounter
== END 2021-12-31 08:01 | disposition home or self-care (01) ==
LOC: US 01-03 08:21
PROVIDERS: PCP Physician Assistant Medical; Visit Provider Registered Nurse
DX: Z34.91 Encounter for supervision of normal pregnancy, unspecified, first trimester (principal); Z3A.13 13 weeks gestation of pregnancy
CPT/HCPCS: 36415; 76801; 76813; 84163; 84702

== ENCOUNTER 2022-02-13 08:09 | Outpatient (CLI) | payer BC, SELFPAY ==
--- OUTSIDE RECORDS SUMMARY | 2022-02-13 08:11 | XMS_ITS | Encounter Summary ---
:1985 Author Organization [place] Address [facility] [place] [address] Care Team Providers Name Role Phone Sarah Montgomery PA-C Primary Care Provider [phone] Reason for Visit Reason Comments Urgent Care Cough chest hurts when coughs, run ny nose- 3 days Encounter Details Date Type Department Care Team Description 12/01/2020 Office Visit [facility] Michelle Patel Viral URI (Primary Dx); Urgent Care Philip Rios PA-C Throat pain [address] [place] [address] [id number] Social History Tobacco Use Types Packs/Day Years [...] Body Mass Index 28.57 05/05/2018 12:36 PM DATA PROCESSING OPERATOR documented in this encounter Patient Instructions [...] secretions in the nose and lungs. ?? Qrwj-ixp-mtpgvqe cold medicines will not shorten the length of time you???re sick, but they may be helpful for the following symptoms: cough, sore throat, and nasal and sinus congestion. If you takeprescription medicines, ask your healthcare provider or pharmacist which lglv-ktd-ihdlhti medicines are safe to use. (Note: Don't [...] it goes along with a muffled voice Compute last reviewed this educational content on 10/23/2017 ?? 6825-2166 The [employer]. All rights reserved. This information is not [...] other patients: Results are usually available in Wik[employer] within 2 to 3 days. If you do not have a [employer] account, you'll get a letter in the mail in about 7 to 10 days. Ravenna Solutionshart is often the fastest way to get test results. Please sign up if you do not already have a Wik[employer] account. See the handout Getting COVID-19 Test Results in Wikinvest for help. What if my test result is positive? If your test is positive and you have not viewed your result in Wikinvest, you'll get a phone call with your [...] results, please visit our testing website at [email or web address]. After 7 to 10 days, if you have not gotten your results: ?? Call ([phone]) and ask to speak with our COVID-19 [...] orwipes. You'll find a full list of personal development coach on the EPA website: www.epa.gov/pesticide-registration/lis z-b-itfxlygwbwxqn-xwl-uagdljm-wjzd-cov-2. ?? Cover your mouth and nose with a mask or other face covering to avoid spreading germs. ?? Wash your hands and face often. Use soap and water. ?? Caregivers in these groups are at risk for severe illness due to COVID-19: ? People 65 years and older ? People who live in a fpc or long-term care facility ? People with [...] found in many medicines (both prescribed and kexk-rsb-vbbjasw medicines). Read all labels to be sure [...] Where can I get more information? ?? [facility] - About COVID-19: [email or web address] ?? CDC - If You're Sick: cdc.gov/coronavirus/2019-ncov/about/zgeke-mshu-gsbm.html ?? CDC - Ending Home Isolation: www.cdc.gov/coronavirus/2019-ncov/hcp/xdthofeugbr-yu-tkou-patients.html ?? CDC - Caring for Someone: www.cdc.gov/coronavirus/2019-ncov/ia-oci-fsp-sick/cdcd-apd-jxvuikd.html ?? [facility] - Interim Guidance for Hospital Discharge to Home: www.health.[facility].co.us/diseases/coronavirus/hcp/hospdischarge.pdf ?? [facility] clinical trials (COVID-19 research studies): clinicalaffairs.[facility]/xbq-zkkubvsz-zbityf ?? Below are the COVID-19 hotlines at the [facility] ([facility]). Interpreters are available. ? For health questions: Call [phone] or (7 a.m. to 7 p.m.) ? For questions about schools and childcare: Call [phone] or (7 a.m. to 7 p.m.) For informational purposes only. Not to replace the advice of your health care provider. Clinically reviewed by Infection Prevention and the [facility] COVID-19 Clinical Team. Copyright ?? 2020 [facility]. All rights reserved. Slack [id number] - Rev 04/04/20. Patient Education Self-Care for [...] in??1/2 cup of warm water ?? An gjck-vye-gzepzyx anesthetic gargle Use medicine for more relief Eihi-eqn-neuvafp medicine can reduce sore throat symptoms. Ask [...] dizzy or faint ?? Feeling of doom Compute last reviewed this educational content on 01/23/2019 ?? 7619-4414 The [employer]. All rights reserved. This information is not [...] Symptoms failing to improve. Michelle Patel PA-C [facility] HART[facility]AN Ellis is a 35 year old female [...] (Coronavirus) by PCR (12/01/2020 1:38 PM CDT) [facility] Method Time Signature SARS-CoV-2 Nasopharyngeal 12/02/2020 INFECTIOUS Virus 11:19 AM DISEASES Specimen CDT DIAGNOSTIC Source LABORATORY, [facility] SARS-CoV-2 NEGATIVE 12/02/2020 INFECTIOUS PCR Result 11:19 AM DISEASES CDT DIAGNOSTIC LABORATORY, [facility] Comment: SARS-CoV2 (COVID-19) RNA not de tected, presumed negative. SARS-CoV-2 PCR Testing was performed using the Aptima SARS-CoV-2 Assay on the Qubell Instrument System. 12/02/2020 11:19 AM INFECTI OUS DISEASES Comment Additional information about this Emergency Use Authorization (EUA) assay can be found via T DIAGNOSTIC the Lab Guide. LABORATORY, [facility] Comment: This test should be ordered [...] COVID-19. This test was validated by the [facility] Infectious Diseases Diagnostic Laboratory. This laboratory i [...] Phon e Number INFECTIOUS DISEASES DIAGNOSTIC [address] [facility] [address] [address] LABORATORY, [facility] Group A Streptococcus PCR Throat Swab (12/01/2020 1:38 PM CDT) [facility] Method Time Signature Specimen Throat 12/01/2020 [place] Description 2:01 PM CDT [facility] Strep Group A Not Detected NDET^Not 12/01/2020 [place] O F PCR Detected 9:58 PM CDT [facility] Comment: Group A Streptococcus DNA is not detecte d. FDA approved assay performed using Crayon Data GeneXpert real-time PCR. Specimen Anatomical Collection Method Collection Time Receive d Time (Source) Location / / Volume Laterality Specimen from 12/01/2020 1:38 PM 12/02/19 21 1:39 throat CDT PM CDT (specimen) Karley Britton MD LAB - MICRO GENERAL ORDERABL ES Performing Organization Address City/State/ZIP Code Phon e Number [facility] [address] [place] [address] [facility] [address] [place] [address] Streptococcus A Rapid Scr w Reflx to PCR (12/01/2020 1:38 PM CDT) [facility] Method Time Signature Strep Specimen Throat 12/01/2020 [place] Description 1:39 PM CDT [facility] Streptococcus Negative NEG^Negat 12/01/2020 [place] Group A Rapid yovany 2:01 PM CDT [facility] Comment: No Group A streptococcal antigen detecte d by immunoassay. Confirmatory testing in progress. Specimen Anatomical Collection Method Collection Time Receive d Time (Source) Location / / Volume Laterality Specimen from 12/01/2020 1:38 PM 12/02/19 21 1:39 throat CDT PM CDT (specimen) Karley Britton MD LAB - MICRO GENERAL ORDERABL ES Performing Organization Address City/[facility]/ZIP Code Phon e Number [facility] [address] [place] [address] Symptomatic COVID-19 Virus (Coronavirus) by PCR (12/01/2020 1:38 PM CDT) Component Value Ref Test Analysis Performed At [facility] Range Method Time Signature COVID-19 Nasopharyngeal 12/01/2020 [place] Virus PCR to 1:39 PM CDT CLINICS [facility] [place] Source COVID-19 Test received-See 12/01/2020 INFECTIOUS Virus PCR to reflex to IDDL 8:15 PM CDT DISEASES U [facility] - test SARS CoV2 DIAGNOSTIC Result (COVID-19) Virus LABORATORY, RT-PCR [facility] Specimen (Source) Anatomical Collection Method Collection Time Re ceived Time Location / / Volume Laterality Specimen from 12/01/2020 1:38 12/01/2020 nasopharyngeal PM CDT 1:39 PM CDT structure (specimen) Karley Britton MD LAB - MICRO GENERAL ORDERABL ES Performing Organization Address City/State/ZIP Code Phon e Number INFECTIOUS DISEASES DIAGNOSTIC [address] [place] [address] [facility] [address] LABORATORY, [facility] [address] [place] [address] documented in this encounter Visit Diagnoses Diagnosis [...] documented as of this encounter Care Teams Qa Developer Relationship Specialty Start Date End Date Sarah Montgomery PA-C PCP - General Family Practice 10/21/11 [address] [place] [address] documented as of this encounter
--- OUTSIDE RECORDS SUMMARY | 2022-02-13 08:11 | XMS_ITS | Encounter Summary ---
:1985 Author Organization [place] Address [address] [place] [address] Care Team Providers Name Role Phone Sarah Montgomery PA-C Primary Care Provider Sarah Montgomery PA-C Unavailable [phone] Sarah Montgomery PA-C Unavailable [phone] Encounter Details Date Type Department Care Team [...] documented as of this encounter Care Teams Desizing Pad Operator Relationship Specialty Start Date End Date Sarah Montgomery, PCP - General Family Practice 10/21/11 [place] [address] [place] [address] Sarah Montgomery, PCP - Assigned PCP 07/27/18 [place] [address] [place] [address] Sarah Montgomery, Assigned PCP 03/15/17 10/17/20 [place] [address] [place] [address] documented as of this encounter
--- OUTSIDE RECORDS SUMMARY | 2022-02-13 08:11 | XMS_ITS | Clinical Summary ---
:1985 Author Organization [place] Address [address] [place] [address] Care Team Providers Name Role Phone Sarah Montgomery PA-C Primary Care Provider [phone] Allergies Active Allergy Reactions Severity Noted Date Comments Seasonal Allergies 11/16/2014 Medications Medication Sig Dispensed Refills Start Date End Date Status [place]-3 Fatty Acids (FISH OIL) 500 0 Active [...] Relation Comments Depression Father Heart Disease Father [place] at age 42 Diabetes Maternal Grandfather Breast Cancer Maternal Grandmother dx at age 62 Cancer Maternal Grandmother cervical and uterin e Diabetes Paternal Grandfather Cancer - colorectal No family hx of Relation Status Comments Brother 1 Alive Brother 2 Alive 2 step brothers (no relation) Father (Age 43) [place] Maternal Grandfather Alive Maternal Grandmother Alive Mother [...] CDT Respiratory Rate 16 04/08/2018 3:00 PM SHOP COOPER Oxygen Saturation 97% 12/01/2020 1:33 PM CDT Inhaled Oxygen Concentration - - Weight 80.3 kg (177 lb) 12/01/2020 1:33 PM CDT Height 167.6 cm (5' 6) 05/05/2018 12:36 PM SHOP COOPER Body Mass Index 28.57 05/05/2018 12:36 PM SHOP COOPER Plan of Treatment Health Maintenance Due Date [...] ss Type Group BCBS BCBS OF [place] [id number] 2020-Prese [phone] [address] [address] Indemnity nt [address] [place] [address] [phone] (Home) W None (Work) [place] [address] Care Teams Principal Military Analyst Relationship Specialty Start Date End Date Sarah Montgomery PA-C PCP - General Family Practice 10/21/11 [address] [place], [place] [id number]
--- OUTSIDE RECORDS SUMMARY | 2022-02-13 08:11 | XMS_ITS | Encounter Summary ---
:1985 Author Organization [place] Address [address] [place] [address] Care Team Providers Name Role Phone Sarah Montgomery PA-C Primary Care Provider [phone] Encounter Details Date Type Department Care Team [...] documented as of this encounter Care Teams Circulation Librarian Relationship Specialty Start Date End Date Sarah Montgomery PA-C PCP - General Family Practice 10/21/11 [address] [place] [address] documented as of this encounter
--- OUTSIDE RECORDS SUMMARY | 2022-02-13 08:12 | XMS_ITS | Encounter Summary ---
:1985 Author Organization [place] Address [address] [place] [address] Care Team Providers Name Role Phone Sarah Montgomery PA-C Primary Care Provider [phone] Sarah Montgomery PA-C Unavailable [phone] Sarah Montgomery PA-C Unavailable [phone] Reason for Referral CV Testing - Closed Specialty Diagnoses / Procedures Referred By Contact Refer red To Contact Cardiology Diagnoses CARDIOVASCULAR SCREENING; LDL GOAL LESS THAN 160 Palpitations Sonny Villafuerte MD Zzrh Cardiac Test [facility] Procedures Cardiac Event Monitor - Peds/Adult [address] [address] [place] [address] [address] [place] [address] Phone: Fax: Referral ID Status Reason Start Date Expiration Date Visits Requ ested Visits Authorized [id number] Closed 10/19/2017 10/19/2018 1 1 V Testing - Closed Specialty Diagnoses / Procedures Referred By Contact Refer red To Contact Cardiology Diagnoses CARDIOVASCULAR SCREENING; LDL GOAL LESS THAN 160 Palpitations Sonny Villafuerte MD Rh Echo Rs Procedures Echocardiogram [address] [address] [place] [address] [address] [place] [address] Phone: Fax: Referral ID Status Reason Start Date Expiration Date Visits Requ ested Visits Authorized [id number] Closed 10/19/2017 10/19/2018 1 1 Reason for Visit Reason Comments Palpitations family hx of CAD CV Cardio consult - Closed Specialty Diagnoses / Procedures Referred By Contact Refer red To Contact Diagnoses Racing heart beat Palpitations Family history of ischemic heart disease Sarah Montgomery CARDIOLOGY CLINIC [place] Aguilar [address] [facility] [address] [address] [place] [address] [place] [address] Phone: [phone] Fax: Referral ID Status Reason Start Date Expiration Date Visits Requ ested Visits Authorized [id number] Closed 10/08/2017 10/08/2018 1 1 Encounter Details Date Type Department Care Team Description 10/12/[address] [facility] Sarah Salas PA-C [address] [place] [address] CARDIOVASCULAR SCREENING; LDL GOAL LESS THAN 160 (Primary Dx); Heart Clinic Piper Villafuerte, Sonny Piper MD [address] [facility] [address] [place], [place] [phone] Palpitations [address] [facility] [address] [place] [address] Social History Tobacco Use Types Packs/Day [...] would be quite low. SONNY VILLAFUERTE MD, [facility] MT: [place] Name: SHRUTI KIRKLAND MRN: [id number] Account: [id number] : 1985 Service Date: 10/12/2017 Document: [id number] Sonny Villafuerte MD - 10/12/2017 12:15 PM [...] Refill ??? fluticasone (FLONASE) 50 MCG/ACT spray [place] 1-2 sprays into both nostrils daily 16 [...] Age of Onset ??? HEART DISEASE Father [place] at age 42 ??? Depression Father ??? [...] Single, lives with boyfriend. 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 documented in this encounter Results Cardiac Event Monitor - Peds/Adult (12/10/2017) Narrative [facility] - 12/10/2017 [facility] [address] [facility] [address] [facility] [address] 11/11/2017 Patient: ??Shruti Kirkland Chart: [id number] : ??1985 Age: ??32 year old Sex: ??female Procedure: ??Event Monitor Placed: Pleas e see scanned document for result once interpretation is completed. New Autos Delivery Driver performing hook-up: ??Stephan Lizama Sonny Villafuerte MD CV CARDIAC SERVICES ORDERABL ES Performing Organization Address City/State/ZIP Code Phon e Number [facility] Echocardiogram (11/11/2017 8:00 AM CDT) Anatomical Region Laterality Modality Echocardiography Specimen (Source) Anatomical Collection Method Collection Time Re ceived Time Location / / Volume Laterality 11/11/2017 7:48 AM CDT Narrative 11/11/2017 10:37 AM CDT [id number]^GENESIS^SONNY^LUCRECIA PIPER [facility] Echocardiography Laboratory [address] [place] [address] Name: SHRUTI KIRKLAND : 1985 Study Date: 11/11/2017 07:48 AM Age: 32 yrs Gender: Female Patient Location: [facility] [place] Reason For Study: Palpitations Ordering Physician: SONNY [...] note might be different from the original. [id number]^GENESIS^SONNY^LUCRECIA PIPER [facility] Echocardiography Laboratory [address] [place] [address] Name: SHRUTI KIRKLAND : 1985 Study Date: 11/11/2017 07:48 AM Age: 32 yrs Gender: Female Patient Location: [facility] Reason For Study: Palpitations Ordering Physician: SONNY [...] documented as of this encounter Care Teams Fun House Operator Relationship Specialty Start Date End Date Sarah Montgomery, PCP - General Family Practice 10/21/11 [place] [address] [place] [address] Sarah Montgomery, PCP - Assigned PCP 07/27/18 PA-C [address] [place] [address] Sarah Montgomery, Assigned PCP 03/15/17 10/17/20 [place] [address] [place] [address] documented as of this encounter
--- OUTSIDE RECORDS SUMMARY | 2022-02-13 08:12 | XMS_ITS | Encounter Summary ---
:1985 Author Organization [place] Address [facility] [place] [address] Care Team Providers Name Role Phone Sarah Montgomery PA-C Primary Care Provider [phone] Sarah Montgomery PA-C Unavailable [phone] Sarah Montgomery PA-C Unavailable [phone] Reason for Referral CV Testing - Closed Specialty Diagnoses / Procedures Referred By Contact Refer red To Contact Cardiology Diagnoses SVT (supraventricular tachycardia) (H) Breanna Roblero Sh Heart Cath L ab Procedures EP Ablation SVT EP Ablation Procedures MD [place] [address] [place] [address] [place] [address] Referral ID Status Reason Start Date Expiration Date Visits Requ ested Visits Authorized [id number] Closed 02/19/2018 02/19/2019 1 1 Reason for Visit Reason Onset Date Comments Procedure 02/17/2018 SVT ablation Encounter Details Date Type Department Care Team Description 02/17/2018 Telephone [facility] Heart Lydia Rosado, Procedure (SVT ablation) Clinic Piper HOPKINS [address] [facility] [address] [place] [address] Social History [...] accepted: Orders, SmartSet Telephone Encounter - Lydia oRsado RN - 02/19/2018 1:46 PM CDT Patient returned call and needs to move ablation to 04/08 d/t conflict in scheduling. H&P set upfor 04/07 in [place] with LEO Lala. Appointment reminder sent to [...] Results EP Ablation SVT (04/08/2018 9:43 AM PURCHASING AND FISCAL CLERK) Anatomical Region Laterality Modality Other Specimen (Source) Anatomical Location Collection Method / Collectio n Time Received Time / Laterality Volume Narrative 04/08/2018 10:29 AM PURCHASING AND FISCAL CLERK Breanna Roblero MD ? 04/08/2018 10:29 AM [...] to the Cardiac E lectrophysiology Laboratory at [facility] on 04/08/2018. ??I determined this patient to [...] mapping and ablation we used a Bi ROBAUTOense Navistar catheter with F/J curve and 4 [...] STA TE (measured in msec): RR: 660 NV: 117 QRS: 92 QT: 368 AH: 60 [...] documented as of this encounter Care Teams Respiratory Equipment Assistant Relationship Specialty Start Date End Date Sarah Montgomery, PCP - General Family Practice 10/21/11 PA-C [address] [place] [address] Sarah Montgomery, PCP - Assigned PCP 07/27/18 [facility] [address] [place] [address] Sarah Montgomery, Assigned PCP 03/15/17 10/17/20 PA-C [address] [place] [address] documented as of this encounter
--- OUTSIDE RECORDS SUMMARY | 2022-02-13 08:12 | XMS_ITS | Encounter Summary ---
:1985 Author Organization [place] Address [address] [place] [address] Care Team Providers Name Role Phone Sarah Montgomery PA-C Primary Care Provider [phone] Sarah Montgomery PA-C Unavailable [phone] Sarah Montgomery PA-C Unavailable Reason for Visit Reason Onset Date Comments medical question 04/20/2018 Encounter Details Date Type Department Care Team Description 04/20/2018 Telephone [facility] Heart January Laguna RN medical question Clinic [address] [address] Social History Tobacco Use Types [...] procedure. Patient provided verbal understanding. Eleno RN ONAL MARKETING DIRECTOR documented in this encounter Plan of Treatment Not on filedocumented as of this encounter Visit Diagnoses Not on filedocumented in this encounter Additional Health Concerns Assessment Noted Time PHQ-9 Depression Total Score: 1 09/22/2017 7:43 AM CDT documented as of this encounter Care Teams Auto Self Service Station Attendant Relationship Specialty Start Date End Date Sarah Montgomery, PCP - General Family Practice 10/21/11 [place] [address] [place] [address] Sarah Montgomery, PCP - Assigned PCP 07/27/18 [place] [address] [place] [address] Sarah Montgomery, Assigned PCP 03/15/17 10/17/20 [place] [address] [place] [address] documented as of this encounter
--- OUTSIDE RECORDS SUMMARY | 2022-02-13 08:12 | XMS_ITS | Encounter Summary ---
:1985 Author Organization [place] Address [address] [place] [address] Care Team Providers Name Role Phone Sarah Montgomery PA-C Primary Care Provider Sarah Montgomery PA-C Unavailable Sarah Montgomery PA-C Unavailable Reason for Referral CV Testing - Closed Specialty Diagnoses / Procedures Referred By Contact Refer red To Contact Cardiology Diagnoses CARDIOVASCULAR SCREENING; LDL GOAL LESS THAN 160 Palpitations Morris Villafuerte MD [facility] Cardiac Test [facility] Procedures Cardiac Event Monitor - Peds/Adult [address] [address] [place] [address] [address] [place] [address] Phone: Fax: Referral ID Status Reason Start Date Expiration Date Visits Requ ested Visits Authorized [id number] Closed 10/19/2017 10/19/2018 1 1 Reason for Visit CV Testing - Closed Specialty Diagnoses / Procedures Referred By Contact Refer red To Contact Cardiology Diagnoses CARDIOVASCULAR SCREENING; LDL GOAL LESS THAN 160 Palpitations Morris Villafuerte MD [facility] Cardiac Test [facility] Procedures Cardiac Event Monitor - Peds/Adult [address] [address] [place] [address] [address] [place] [address] Phone: Fax: Referral ID Status Reason Start Date Expiration Date Visits Requ ested Visits Authorized [id number] Closed 10/19/2017 10/19/2018 1 1 Encounter Details Date Type Department Care Team Description 11/11/2017 Hospital Encounter [facility], Morris Chauhan CARD IOVASCULAR SCREENING; LDL GOAL LESS THAN 160; Care Center MD Veronique Palpitations [address] [place] [facility] [address] [place] [address] Social History Tobacco Use Types Packs/Day [...] Start Date End Date fluticasone (FLONASE) 50 [place] 1-2 sprays 16 g 0 12/2112/01/2020 MCG/ACT [...] - Peds/Adult (12/10/2017) Narrative RADIANT - 12/10/2017 [facility] [address] [facility] [address] [facility] [address] 11/11/2017 Patient: ??Rhonda Patel [place] Chart: [id number] : ??1985 Age: ??32 year old Sex: ??female Procedure: ??Event Monitor Placed: Pleas e see scanned document for result once interpretation is completed. Resident Intern performing hook-up: ??Stephan Lizama Morris Villafuerte MD CV CARDIAC SERVICES ORDERABL ES Performing Organization Address City/State/ZIP Code Phon e Number RADIANT documented in this encounter Visit Diagnoses Diagnosis CARDIOVASCULAR SCREENING; LDL GOAL LESS THAN 160 Palpitations documented in this encounter Additional Health Concerns Assessment Noted Time PHQ-9 Depression Total Score: 1 09/22/2017 7:43 AM CDT documented as of this encounter Care Teams Rigging Slinger Relationship Specialty Start Date End Date Sarah Montgomery PCP - General Family Practice 10/21/11 PA-C [address] [place] [address] Sarah Montgomery PCP - Assigned PCP 07/27/18 PAL[facility]bronC [address] [place] [address] Sarah Montgomery, Assigned PCP 03/15/17 10/17/20 PALebronC [address] [place] [address] documented as of this encounter
--- OUTSIDE RECORDS SUMMARY | 2022-02-13 08:12 | XMS_ITS | Encounter Summary ---
:1985 Author Organization [place] Address [address] [place] [address] Care Team Providers Name Role Phone Sarah Montgomery PA-C Primary Care Provider Sarah Montgomery PA-C Unavailable Sarah Montgomery PA-C Unavailable [phone] Reason for Visit Reason Comments Information Resources Director Encounter Details Date Type Department Care Team Description 11/13/2017 Documentation Only [facility] Heart Zoila, Information Resources Director Clinic [place] Estrada RN [address] [facility] [address] [place] [address] Social History Tobacco Use Types [...] End of service summary report received from [employer]. No further episodes noted after 11/19/17. Will review with Dr. Vilalfuerte for signature and send to be scanned. [...] evaluation of palpitations. Event strips received from [employer] from 11/12/17. Three symptomatic events for shortness [...] documented as of this encounter Care Teams Information Security Architect Relationship Specialty Start Date End Date Sarah Montgomery, PCP - General Family Practice 10/21/11 DEANGELO [address] [place] [address] Sarah Montgomery, PCP - Assigned PCP 07/27/18 DEANGELO [address] [place] [address] Sarah Montgomery, Assigned PCP 03/15/17 10/17/20 DEANGELO [address] [place] [address] documented as of this encounter
--- OUTSIDE RECORDS SUMMARY | 2022-02-13 08:12 | XMS_ITS | Encounter Summary ---
:1985 Author Organization [place] Address [address] [place] [address] Care Team Providers Name Role Phone Sarah Montgomery PA-C Primary Care Provider Sarah Montgomery PA-C Unavailable [phone] Sarah Montgomery PA-C Unavailable Reason for Visit Reason Onset Date Comments Clinic Care Coordination - Follow-up 04/09/2018 SVT Ablation Encounter Details Date Type Department Care Team Description 04/09/2018 Telephone [facility] Heart Thelma Bartholomew C linic Care Coordination Clinic [place] RN - Follow-up (SVT [address] Ablation) [facility] [address] [place] [address] Social History Tobacco Use Types [...] will work. No questions or concerns. JnelsonRN IGERATION PERSON documented in this encounter Plan of Treatment Not on filedocumented as of this encounter Visit Diagnoses Not on filedocumented in this encounter Additional Health Concerns Assessment Noted Time PHQ-9 Depression Total Score: 1 09/22/2017 7:43 AM CDT documented as of this encounter Care Teams Community Advocate Relationship Specialty Start Date End Date Sarah Montgomery, PCP - General Family Practice 10/21/11 DEANGELO [address] [place] [address] Sarah Montgomery, PCP - Assigned PCP 07/27/18 DEANGELO [address] [place] [address] Sarah Montgomery, Assigned PCP 03/15/17 10/17/20 DEANGELO [address] [place] [address] documented as of this encounter
--- OUTSIDE RECORDS SUMMARY | 2022-02-13 08:12 | XMS_ITS | Encounter Summary ---
:1985 Author Organization [facility] Address [address] [place] [address] Care Team Providers Name Role Phone Sarah Montgomery PA-C Primary Care Provider Sarah Montgomery PA-C Unavailable [phone] Sarah Montgomery PA-C Unavailable Reason for Visit Reason Comments Consult Follow-up after SVT ablatio n done Encounter Details Date Type Department Care Team Description 05/05/2018 [facility] [place]; LDL GOAL LESS Heart FLOOR LAYER THAN 160 (Primary Dx) Care-[address] JERO [id number] [place] [address] [address] [place] [address] [place], [place] [phone] [address] (Work) [phone] Social History Tobacco Use Types Packs/Day Years [...] Comments Blood Pressure 113/80 05/05/2018 12:36 PM DRAMA THERAPIST Pulse 76 05/05/2018 12:36 PM DRAMA THERAPIST Temperature - - Respiratory Rate - - Oxygen Saturation - - Inhaled Oxygen Concentration - - Weight 70.8 kg (156 lb) 05/05/2018 12:36 PM DRAMA THERAPIST Height 167.6 cm (5' 6) 05/05/2018 12:36 PM DRAMA THERAPIST Body Mass Index 25.18 05/05/2018 12:36 PM DRAMA THERAPIST documented in this encounter Progress Quita Matthew [...] any questions or concerns. Quita Thacker APRN, FLOOR LAYER This note was completed in part using Aubrey voice recognition software. Although reviewed after completion, some word and grammatical errors may occur. Orders Placed This Encounter Procedures ??? EKG 12-lead complete w/read - Clinics (performed today) Orders Placed This Encounter Medications ??? Taswell-3 Fatty Acids (FISH OIL) 500 MG CAPS Medications Discontinued During This Encounter Medication Reason ??? LORazepam (ATIVAN) 1 MG tablet Encounter Diagnosis Name Primary? CARDIOVASCULAR SCREENING; LDL GOAL LESS THAN 160 Yes CURRENT MEDICATIONS: Current Outpatient Medications Medication Sig Dispense Refill ??? fluticasone (FLONASE) 50 MCG/ACT spray [place] 1-2 sprays into both nostrils daily 16 g 0 ??? [place]well-3 Fatty Acids (FISH OIL) 500 MG CAPS [...] Age of Onset ??? Heart Disease Father [place] at age 42 ??? Depression Father ??? [...] Other Topics Concern ??? Parent/sibling w/ CABG, GA or angioplasty before 65F 55M? No Social History Narrative Single, lives with boyfriend. 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 A THERAPIST documented in this encounter Plan of Treatment [...] documented as of this encounter Care Teams Safety Lead Relationship Specialty Start Date End Date Sarah Montgomery PCP - General Family Practice 10/21/11 DEANGELO [address] [place] [address] Sarah Montgomery PCP - Assigned PCP 07/27/18 DEANGELO [address] [place] [address] Sarah Montgomery, Assigned PCP 03/15/17 10/17/20 DEANGELO [address] [place] [address] documented as of this encounter
--- OUTSIDE RECORDS SUMMARY | 2022-02-13 08:12 | XMS_ITS | Encounter Summary ---
:1985 Author Organization [place] Address [address] [place] [address] Care Team Providers Name Role Phone Sarah Montgomery PA-C Primary Care Provider [phone] Sarah Montgomery PA-C Unavailable [phone] Sarah Montgomery PA-C Unavailable Reason for Visit Reason Onset Date Comments Clinic Care Coordination - Initial 04/07/2018 SVT A blation Encounter Details Date Type Department Care Team Description 04/07/2018 Telephone [facility] Heart Thelma Bartholomew C linic Care Coordination Clinic [place] RN - Initial (SVT Ablation) [address] [place] [address] [place] [address] Social History Tobacco Use Types Packs/Day [...] to see Quita today at 1510. JNelsonRN IAGE SETTER documented in this encounter Plan of Treatment Not on filedocumented as of this encounter Visit Diagnoses Not on filedocumented in this encounter Additional Health Concerns Assessment Noted Time PHQ-9 Depression Total Score: 1 09/22/2017 7:43 AM CDT documented as of this encounter Care Teams Rn First Assistant Relationship Specialty Start Date End Date Sarah Montgomery, PCP - General Family Practice 10/21/11 DEANGELO [address] [place], [place] [address] Sarah Montgomery, PCP - Assigned PCP 07/27/18 DEANGELO [address] [place] [address] Sarah Montgomery, Assigned PCP 03/15/17 10/17/20 DEANGELO [address] [place] [address] documented as of this encounter
--- OUTSIDE RECORDS SUMMARY | 2022-02-13 08:12 | XMS_ITS | Encounter Summary ---
:1985 Author Organization [place] Address [address] [place] [address] Care Team Providers Name Role Phone Sarah Montgomery PA-C Primary Care Provider Sarah Montgomery PA-C Unavailable [phone] Sarah Montgomery PA-C Unavailable [phone] Reason for Referral - Closed Specialty Diagnoses / Procedures Referred By Contact Refer red To Contact Diagnoses SVT (supraventricular tachycardia) (H) [facility] H[facility]io [facility] [address] [address] [place] [address] Referral ID Status Reason Start Date Expiration Date Visits Requ ested Visits Authorized [id number] Closed 01/06/2018 01/06/2019 1 1 Reason for Visit Reason Onset Date Comments Results 12/23/2017 Event monitor Encounter Details Date Type Department Care Team Description 12/23/2017 Telephone [facility] Heart Macie Knight RN Results (Event monitor) Clinic [place] [address] [facility] [address] [place] [address] Social History Tobacco Use Types Packs/Day [...] noted. Dr. Villafuerte is recommending consult with gospel singer. Left Voice message for patient to return call to discuss recommendations of Dr. Villafuerte's, and to set up EP OV if patient agrees. Await call back. ADDENDUM: Patient returned call. Informed her of the event monitor results showing one episode of SVT and recommendation per Dr. Villafuerte for a consult with EP. Order placed in [place]. Provided patient with the phone number for the scheduling department and she planned to call back to schedule this. 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: Grazing Aide (supraventricular tachycardia) (H) (Approximat e), Expires: 12/23/2019 documented as of this encounter Visit Diagnoses Diagnosis SVT (supraventricular tachycardia) (H) - Primary Other specified cardiac dysrhythmias documented in this encounter Additional Health Concerns Assessment Noted Time PHQ-9 Depression Total Score: 1 09/22/2017 7:43 AM CDT documented as of this encounter Care Teams Alarm Adjuster Relationship Specialty Start Date End Date Sarah Montgomery PCP - General Family Practice 10/21/11 DEANGELO [address] [place] [address] Sarah Montgomery PCP - Assigned PCP 07/27/18 DEANGELO [address] [place] [address] Sarah Montgomery, Assigned PCP 03/15/17 10/17/20 IM[facility]AC [address] [place] [address] documented as of this encounter
--- OUTSIDE RECORDS SUMMARY | 2022-02-13 08:12 | XMS_ITS | Encounter Summary ---
:1985 Author Organization [place] Address [address] [place] [address] Care Team Providers Name Role Phone Sarah Montgomery PA-C Primary Care Provider Sarah Montgomery PA-C Unavailable [phone] Sarah Montgomery PA-C Unavailable [phone] Reason for Visit Reason Comments Follow Up HP for SVT ablation Encounter Details Date Type Department Care Team Description 04/07/2018 [facility] FISHER HAND LINE tachycardia (H) (Primary Care-[address] AVKerri Dx) [address] [facility] [address] [place] [address] [place], [place] [phone] [address] (Work) [phone] Social History Tobacco Use Types Packs/Day Years [...] Comments Blood Pressure 110/80 04/07/2018 3:16 PM SLIVER LAPPER Pulse 88 04/07/2018 3:16 PM SLIVER LAPPER Temperature - - Respiratory Rate - - Oxygen Saturation - - Inhaled Oxygen Concentration - - Weight 71.1 kg (156 lb 12.8 oz) 04/07/2018 3:16 PM SLIVER LAPPER Height 167.6 cm (5' 6) 04/07/2018 3:16 PM SLIVER LAPPER Body Mass Index 25.31 04/07/2018 3:16 PM SLIVER LAPPER documented in this encounter Patient Instructions Patient InstructionsStQuita thakur APRN CNP - 04/07/2018 3:10 PM SLIVER LAPPER As always, thank you for trusting us with your health care needs! If you have any questions regarding your visit please contact your care team: Cardiology Telephone Number Afib RNs: Thelma Vaca and Shahnaz [phone] Call for Electrophysiology procedure scheduling concerns [phone] Device Clinic (Pacemakers, ICDs, Loop Recorders) RN's: Liz Diaz Lynda, MJ, Stephanie, Sue During business hours: [phone] ER LAPPER documented in this encounter Progress Notes Quita [...] have any questions or concerns. Quita Thacker, HAULING CONTRACTOR, FISHER HAND LINE This note was completed in part using We[employer] voice recognition software. Although reviewed after completion, some word and grammatical errors may occur. No orders of the defined types were placed in this encounter. No orders of the defined types were placed in this encounter. There are no discontinued medications. No diagnosis found. CURRENT MEDICATIONS: Current Outpatient Prescriptions Medication Sig Dispense Refill ??? fluticasone (FLONASE) 50 MCG/ACT spray [place] 1-2 sprays into both nostrils daily 16 [...] Age of Onset ??? HEART DISEASE Father [place] at age 42 ??? Depression [...] Single, lives with boyfriend. 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 ER LAPPER documented in this encounter Plan of Treatment Not on filedocumented as of this encounter Visit Diagnoses Diagnosis Paroxysmal supraventricular tachycardia (H) - Primary Paroxysmal supraventricular tachycardia documented in this encounter Additional Health Concerns Assessment Noted Time PHQ-9 Depression Total Score: 1 09/22/2017 7:43 AM CDT documented as of this encounter Care Teams Academic Program Specialist Relationship Specialty Start Date End Date Sarah Montgomery PCP - General Family Practice 10/21/11 DEANGELO [address] [place] [address] Sarah Montgomery PCP - Assigned PCP 07/27/18 DEANGELO [address] [place] [address] Sarah Montgomery, Assigned PCP 03/15/17 10/17/20 DEANGELO [address] [place] [address] documented as of this encounter
--- OUTSIDE RECORDS SUMMARY | 2022-02-13 08:12 | XMS_ITS | Encounter Summary ---
:1985 Author Organization [place] Address [facility] [place] [address] Care Team Providers Name Role Phone Sarah Montgomery PA-C Primary Care Provider Sarah Montgomery PA-C Unavailable [phone] Sarah Montgomery PA-C Unavailable Reason for Visit Reason Comments Irregular Heart Beat review event monitor - Closed Specialty Diagnoses / Procedures Referred By Contact Refer red To Contact Diagnoses SVT (supraventricular tachycardia) (H) [facility] H[facility] Cardio [facility] [address] [facility] [address] [place] [address] Referral ID Status Reason Start Date Expiration Date Visits Requ ested Visits Authorized [id number] Closed 01/06/2018 01/06/2019 1 1 Encounter Details Date Type Department Care Team Description 01/07/2018 Office Visit [facility] IpMorris MD [address] [place] [address] SVT Heart Clinic Oleg Lang MD [address] [place] [address] (supraventricular [address] [facility] tachycard ia) (H) [facility] [address] [place] [address] Social History Tobacco [...] came to the clinic today with her [id number] son, Adalberto. She has been referred by Dr. Villafuerte. For the past 2 years, Rhonda has had intermittent palpitation where her heart races for a few minutes. With that she sometimes becomes lightheaded. She has not fainted. She tells me it is an uncomfortable feeling. On one occasion she ended up in the emergency room in [place], but from what I gatherthe tachycardia had [...] OLEG SOTELO MD, FACC cc: [place] [address] [place]: RASHAD Name: RHONDA KIRKLADN Account: [id number] : 1985 Service Date: 01/07/2018 Document: [id number] Oleg Sotelo MD - 01/07/2018 1:15 PM CDT HPI and Plan: See dictation No orders of the defined types were placed in this encounter. No orders of the defined types were placed in this encounter. There are no discontinued medications. Encounter Diagnosis Name Primary? SVT (supraventricular tachycardia) (H) CURRENT MEDICATIONS: Current Outpatient Prescriptions Medication Sig Dispense Refill ??? fluticasone (FLONASE) 50 MCG/ACT spray [place] 1-2 sprays into both nostrils daily 16 [...] Age of Onset ??? HEART DISEASE Father [place] at age 42 ??? Depression Father ??? [...] Single, lives with boyfriend. 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 Review of Systems: Skin: Positive for bruising Eyes: Negative ENT: Negative Respiratory: Positive for shortness of breath when heart is racing, feels SOB Cardiovascular: Negative for;chest pain;edema Positive for;fatigue;palpitations;lightheadedness;dizziness Gastroenterology: Positive for nausea Genitourinary: Negative Musculoskeletal: Positive for joint pain;back pain see's chiropacter Neurologic: Negative Psychiatric: Positive for anxiety not dx Heme/Lymph/Imm: Positive for easy bruising;allergies Endocrine: Negative [id number] documented in this encounter Plan of Treatment Not on filedocumented as of this encounter Visit Diagnoses Diagnosis SVT (supraventricular tachycardia) (H) Other specified cardiac dysrhythmias documented in this encounter Additional Health Concerns Assessment Noted Time PHQ-9 Depression Total Score: 1 09/22/2017 7:43 AM CDT documented as of this encounter Care Teams Director Of Marketing Google Performance Ads Relationship Specialty Start Date End Date Sarah Montgomery PCP - General Family Practice 10/21/11 [address]ANGELO [address] [place] [address] Sarah Montgomery, PCP - Assigned PCP 07/27/18 DEANGELO [address] [place] [address] Sarah Montgomery, Assigned PCP 03/15/17 10/17/20 DEANGELO [address] [place] [address] documented as of this encounter
--- OUTSIDE RECORDS SUMMARY | 2022-02-13 08:12 | XMS_ITS | Encounter Summary ---
:1985 Author Organization [place] Address [address] [facility] [place] [address] Care Team Providers Name Role Phone Sarah [place] PA-C Primary Care Provider [phone] Sarah [place] PA-C Unavailable Sarah [place] PA-C Unavailable Encounter Details Date Type Department Care Team Description 04/08/2018 Hospital Encounter [facility] Tejal Roblero SVT [facility] MD [place] (supraventricular Suites [address] tachycardia) (H) [address] [place], [place] [address] [phone] Social History Tobacco Use Types Packs/Day Years [...] Comments Blood Pressure 103/80 04/08/2018 3:00 PM FIRST PRESS OPERATOR Pulse 81 04/08/2018 3:00 PM FIRST PRESS OPERATOR Temperature 36.8 ??C (98.3 ??F) 04/08/2018 6:41 AM FIRST PRESS OPERATOR Respiratory Rate 16 04/08/2018 3:00 PM FIRST PRESS OPERATOR Oxygen Saturation 96% 04/08/2018 12:30 PM FIRST PRESS OPERATOR Inhaled Oxygen Concentration - - Weight 71.7 kg (158 lb) 04/08/2018 6:41 AM FIRST PRESS OPERATOR Height 167.6 cm (5' 6) 04/08/2018 6:41 AM FIRST PRESS OPERATOR Body Mass Index 25.5 04/08/2018 6:41 AM FIRST PRESS OPERATOR documented in this encounter Discharge Instructions Discharge [...] lay flat for 2 hours. ??? Call [facility] as soon as you [...] The irregular beats should occur less often. [facility]: [phone] ( 8am-5pm M-F) Lio Renee or Shahnaz [phone] [facility] (7 days a week) T PRESS OPERATOR documented in this encounter Medications at Time of Discharge Medication Sig Dispensed Refills Start Date End Date fluticasone (FLONASE) 50 [place] 1-2 sprays 16 g 0 12/2112/01/2020 MCG/ACT [...] ride with per wc with all belongings. T PRESS OPERATOR Crys Enrique RN - 04/08/2018 2:41 PM CST Got up of bed at 1430 and oozed from groin right away. 5 min of manual pressure- page out to Dr Roblero. Will plan 1 more hour of bedrest. See flow sheet. Report given to Chavez HOPKINS T PRESS OPERATOR Rosetta Bailey RN - 04/08/2018 1:20 PM [...] flow sheet. Ate. On bedrest til 1430. T PRESS OPERATOR Crys Enrique RN - 04/08/2018 7:41 AM CST Sent web page to Dr Roblero with K+ 3.4. T PRESS OPERATOR Crys Enrique RN - 04/08/2018 7:16 AM CST Heart tones normal, no femoral bruit. Here with her mom. Explained pre Ablation and answered questions. Does not want to see Ablation video. Resting in bed with call light in reach. T PRESS OPERATOR documented in this encounter Procedure Notes Breanna [...] brought to the Cardiac Electrophysiology Laboratory at [facility] on 04/08/2018. I determined this patient to [...] BASELINE STATE (measured in msec): RR: 660 NE: 117 QRS: 92 QT: 368 AH: 60 [...] AV node. 3. No apparent in-lab complication. T PRESS OPERATOR documented in this encounter Plan of Treatment Not on filedocumented as of this encounter Procedures Procedure Name Priority Date/Time Associated Comments Diagnosis H ABLATION SVT Routine 04/08/2018 9:43 AM SVT Results for this FIRST PRESS OPERATOR (supraventricular procedure are in tachycardia) (H) the results section. EKG 12-LEAD, TRACING STAT 04/08/2018 7:04 AM R esults for this ONLY FIRST PRESS OPERATOR procedure are i n the results section. HCG QUANTITATIVE STAT 04/08/2018 6:53 AM SVT Resul ts for this FIRST PRESS OPERATOR (supraventricular procedure are in tachycardia) (H) the results section. BASIC METABOLIC PANEL STAT 04/08/2018 6:53 AM SVT Results for this FIRST PRESS OPERATOR (supraventricular procedure are in tachycardia) (H) the results section. CBC WITH PLATELETS STAT 04/08/2018 6:53 AM SVT Res ults for this FIRST PRESS OPERATOR (supraventricular procedure are in tachycardia) (H) the results section. documented in this encounter Results EP Ablation SVT (04/08/2018 9:43 AM FIRST PRESS OPERATOR) Anatomical Region Laterality Modality Other Specimen (Source) Anatomical Location Collection Method / Collectio n Time Received Time / Laterality Volume Narrative 04/08/2018 10:29 AM FIRST PRESS OPERATOR Breanna Roblero MD ? 04/08/2018 10:29 AM [...] to the Cardiac E lectrophysiology Laboratory at [facility] on 04/08/2018. ??I determined this patient [...] For mapping and ablation we used a [employer] catheter with F/J curve and 4 [...] STA TE (measured in msec): RR: 660 NE: 117 QRS: 92 QT: 368 AH: 60 [...] EKG 12-lead, tracing only (04/08/2018 7:04 AM FIRST PRESS OPERATOR) [facility] Method Time Signature Interpretation ECG Click View RADIOLOGY Image link RESULTS to view waveform and result Specimen (Source) Anatomical Collection Method Collection Time Re ceived Time Location / / Volume Laterality 04/08/2018 7:04 AM FIRST PRESS OPERATOR Breanna Roblero MD ECG ORDERABLES Performing Organization Address City/State/ZIP Code Phon e Number RADIOLOGY RESULTS HCG quantitative (04/08/2018 6:53 AM FIRST PRESS OPERATOR) athologist Signature HCG Quantitative <1 0 - 5 IU/L 04/08/2018 [place] Serum 7:23 AM [facility] Specimen Anatomical Collection Method Collection Time Receive d Time (Source) Location / / Volume Laterality Blood specimen 04/08/2018 6:53 AM 018 6:54 (specimen) FIRST PRESS OPERATOR AM FIRST PRESS OPERATOR Breanna Roblero MD LAB - BLOOD ORDERABLES Performing Organization Address City/State/ZIP Code Phon e Number M [facility] [address] [place] [address] [phone] [facility] [address] [place] [address], [place] [phone] CBC with platelets (04/08/2018 6:53 AM FIRST PRESS OPERATOR) athologist Signature WBC 5.8 4.0 - 11.0 04/08/2018 [facility] 10e9/L 7:01 AM [facility] RBC Count 4.51 3.8 - 5.2 04/08/2018 [facility] 10e12/L 7:01 AM [facility] Hemoglobin 14.1 11.7 - 04/08/2018 [facility] 15.7 g/dL 7:01 AM [facility] Hematocrit 41.1 35.0 - 04/08/2018 [facility] 47.0 % 7:01 AM [facility] MCV 91 78 - 100 04/08/2018 [facility] fl 7:01 AM [facility] MCH 31.3 26.5 - 04/08/2018 [facility] 33.0 pg 7:01 AM [facility] MCHC 34.3 31.5 - 04/08/2018 [facility] 36.5 g/dL 7:01 AM [facility] RDW 12.6 10.0 - 04/08/2018 [facility] 15.0 % 7:01 AM [facility] Platelet Count 283 150 - 450 04/08/2018 [facility] 10e9/L 7:01 AM [facility] Specimen Anatomical Collection Method Collection Time Receive d Time (Source) Location / / Volume Laterality Blood specimen 04/08/2018 6:53 AM 018 6:54 (specimen) FIRST PRESS OPERATOR AM FIRST PRESS OPERATOR Breanna Roblero MD LAB - BLOOD ORDERABLES Performing Organization Address City/State/ZIP Code Phon e Number M [facility] [address] [place] [address] [phone] [facility] [address] [place] [address], [place] [phone] (ABNORMAL) Basic metabolic panel (04/08/2018 6:53 AM FIRST PRESS OPERATOR) athologist Signature Sodium 137 133 - 144 04/08/2018 [place] mmol/L 7:20 AM [facility] Potassium 3.4 3.4 - 5.3 04/08/2018 [place] mmol/L 7:20 AM [facility] Chloride 105 94 - 109 04/08/2018 [place] mmol/L 7:20 AM [facility] Carbon Dioxide 26 20 - 32 04/08/2018 [place] mmol/L 7:20 AM [facility] Anion Gap 6 3 - 14 04/08/2018 [place] mmol/L 7:20 AM [facility] Glucose 74 70 - 99 04/08/2018 [place] mg/dL 7:20 AM [facility] Urea Nitrogen 11 7 - 30 04/08/2018 [place] mg/dL 7:20 AM [facility] Creatinine 0.80 0.52 - 04/08/2018 [place] 1.04 mg/dL 7:20 AM [facility] GFR Estimate 84 >60 04/08/2018 [place] mL/min/1.7 7:[address] Comment: Non GFR Calc GFR Estimate If >90 >60 mL/min/1.7m2 04/08/2018 7:20 A [facility] Comment: GFR Calc Calcium 8.3 (L) 8.5 - 10.1 mg/dL 04/08/2018 7:20 AM [facility] Specimen Anatomical Collection Method Collection Time Receive d Time (Source) Location / / Volume Laterality Blood specimen 04/08/2018 6:53 AM 6:54 (specimen) FIRST PRESS OPERATOR AM FIRST PRESS OPERATOR Breanna Roblero MD LAB - BLOOD ORDERABLES Performing Organization Address City/State/ZIP Code Phon e Number M [facility] [address] [place] [address] [phone] [facility] [address] [address], [place] [phone] documented in this encounter Visit Diagnoses Diagnosis SVT (supraventricular tachycardia) (H) Other specified cardiac dysrhythmias documented in this encounter Administered Medications Inactive Administered Medications - up to 3 most recent administrations Medication Order MAR Action Action Date Dose Rate Site 0.45% sodium chloride infusion New Bag 04/08/2018 7:12 AM FIRST PRESS OPERATOR 30 mL/hr at 30 mL/hr, Intravenous, CONTINUOUS, Start 2 hours pre-procedure and then per provider direction intra-procedure. Pre-procedurally for CAR electrophysiology studies., Cardiac Pre-procedure, Starting on Mackenzie 04/08/18 at 0645, Until Mackenzie 04/08/18 at 1023 acetaminophen (TYLENOL) tablet 650 mg Given 04/08/2018 3:06 PM FIRST PRESS OPERATOR 650 mg 650 mg, Oral, EVERY 4 HOURS PRN, mild pain, fever, Starting on Mackenzie 04/08/18 at 1026, Post-procedurally for CAR electrophysiology studies. Maximum acetaminophen dose from all sources = 75 mg/kg/day not to exceed 4 grams/day., Cardiac Post-procedure fentaNYL (PF) (SUBLIMAZE) injection 25-50 Given 04/08/2018 10:05 AM FIRST PRESS OPERATOR 50 mcg mcg 25-50 mcg, Intravenous, EVERY 2 MIN PRN, severe pain (7-10), or sedation, when verbally ordered by the provider during the procedure., Starting on Mackenzie 04/08/18 at 0841, Doses can be exceeded under direct oversight of patient by physician. For ordered IV doses 1-100 mcg give IV Push undiluted over a minimum of 3-5 minutes., Cardiac Intra-procedure Given 04/08/2018 9:30 AM FIRST PRESS OPERATOR 50 mcg Given 04/08/2018 9:25 AM FIRST PRESS OPERATOR 50 mcg isoproterenol (ISUPREL) 1 mg in [...] mcg/min 30 mL/hr 200 mcg/50 mL pre-mix FIRST PRESS OPERATOR 0.5-20 mcg/min (7.5-300 mL/hr), Intravenous, CONTINUOUS PRN, when verbally ordered by the provider during the procedure. Titrate up as directed by the provider., Starting on Mackenzie 04/08/18 at 0957, Protect from light., Cardiac Intra-procedure Restarted 04/08/2018 9:50 AM FIRST PRESS OPERATOR 1 mcg/min 15 mL/hr New Bag 04/08/2018 9:39 AM FIRST PRESS OPERATOR 1 mcg/min 15 mL/hr lidocaine (LMX4) cream [...] % Given by Other 04/08/2018 8:48 AM FIRST PRESS OPERATOR 15 mLs injection 10-30 mL 10-30 mL, [...] injection 0.5-2 mg Given 04/08/2018 10:05 AM FIRST PRESS OPERATOR 1 mg 0.5-2 mg, Intravenous, Administer over [...] NS., Cardiac Intra-procedure Given 04/08/2018 9:45 AM FIRST PRESS OPERATOR 1 mg Given 04/08/2018 9:30 AM FIRST PRESS OPERATOR 1 mg naloxone (NARCAN) injection 0.1-0.4 mg [...] (K-DUR/KLOR-CON M) CR Given 04/08/2018 2:38 PM FIRST PRESS OPERATOR 20 mEq tablet 20 mEq 20 mEq, [...] Recently Administered Medications Times are shown in FIRST PRESS OPERATOR. Scheduled Medication Order 04/06/2018 04/07/2018 04/08/2018 potassium [...] 650 mg 1506 (Given - Provider: Nito BlasKELLIE) 650 mg, Oral, EVERY 4 HOURS PRN, mild pa in, fever, Starting Mackenzie 04/08/18 at 1026, Post-procedurally for CAR electrophysiology studies. Maximum acetaminophen dose from all sources = 75 mg/kg/day not to exceed 4 grams/day., Cardiac Post-procedure fentaNYL (PF) (SUBLIMAZE) injection 25-50 mcg (CANCELED) 0845 (Given - Provider: Davie Joya, KELLIE)0925 (Given - Provider: Davie Joya RN)0930 (Given - Provider: Davie Joya, KELLIE)1005 (Given - Provider: Davie Joya, RN) 25-50 [...] pre-mix (CANCELED) 0939 (New Bag - Provider: Davie Joya RN)0942 (Stopped - Provider: Davie Joya, KELLIE)0950 (Restarted - Provider: Davie Joya RN)0955 (Rate/Dose Change - Provider: Davie Joya, KELLIE)0959 (Stopped - Provider: Davie Joya, RN) 0.5-20 [...] Davie Joya, KELLIE)0925 (Given - Provider: Davie Joya RN)0930 (Given - Provider: Davie Joya, KELLIE)0945 (Given - Provider: Davie Joya, KELLIE) 0.5-2 mg, Intravenous, Administer over 2 Minutes, EVERY 2 MIN PRN, Starting Mackenzie 04/08/18 at 0841, sedation, when verbally ordered by the provider during the procedure., Doses can be exceeded under dire 1005 (Given - Provider: Davie Joya, KELLIE) [...] documented as of this encounter Care Teams Supply Chain Manager Relationship Specialty Start Date End Date Sarah [place], PCP - General Family Practice 10/21/11 [address] [address] [place] [address] Sarah [place], PCP - Assigned PCP 07/27/18 [address] [address] [place] [address] Sarah [place], Assigned PCP 03/15/17 10/17/20 [address] [address] [place] [address] documented as of this encounter
--- OUTSIDE RECORDS SUMMARY | 2022-02-13 08:12 | XMS_ITS | Encounter Summary ---
:1985 Author Organization [place] Address [address] [place] [address] Care Team Providers Name Role Phone Sarah [place] PA-C Primary Care Provider [phone] Sarah [place] PA-C Unavailable [phone] Sarah [place] PA-C Unavailable [phone] Reason for Referral CV Testing - Closed Specialty Diagnoses / Procedures Referred By Contact Refer red To Contact Cardiology Diagnoses CARDIOVASCULAR SCREENING; LDL GOAL LESS THAN 160 Palpitations Sonny Villafuerte MD Rh Echo Rscc Procedures Echocardiogram [address] [address] [place] [address] [address] [place] [address] Phone: Fax: Referral ID Status Reason Start Date Expiration Date Visits Requ ested Visits Authorized [id number] Closed 10/19/2017 10/19/2018 1 1 Reason for Visit CV Testing - Closed Specialty Diagnoses / Procedures Referred By Contact Refer red To Contact Cardiology Diagnoses CARDIOVASCULAR SCREENING; LDL GOAL LESS THAN 160 Palpitations Sonny Villafuerte MD Rh Echo Rscc Procedures Echocardiogram [address] [address] [place] [address] [address] [place] [address] Phone: Fax: Referral ID Status Reason Start Date Expiration Date Visits Requ ested Visits Authorized [id number] Closed 10/19/2017 10/19/2018 1 1 Encounter Details Date Type Department Care Team Description 11/11/2017 Hospital Encounter [facility], Sonny Chauhan CAR DIOVASCULAR SCREENING; LDL GOAL LESS THAN 160; [facility] MD José Miguel Palpitations [facility] [address] [facility] [address] [facility] [address] [place] [address] [place], [place] [phone] [address] (Work) [phone] Social History Tobacco Use Types Packs/Day Years [...] Start Date End Date fluticasone (FLONASE) 50 [place] 1-2 sprays 16 g 0 12/2112/01/2020 MCG/ACT [...] AM CDT Narrative 11/11/2017 10:37 AM CDT [id number]^GENESIS^SONNY^LUCRECIA VALDEZ [facility] Echocardiography Laboratory [address] [place] [address] Name: RHONDA KIRKLAND : 1985 Study Date: 11/11/2017 07:48 AM Age: 32 yrs Gender: Female Patient Location: [facility] Reason For Study: Palpitations Ordering Physician: SONNY [...] note might be different from the original. [id number]^GENESIS^SONNY^LUCRECIA JOSÉ MIGUEL [facility] Echocardiography Laboratory [address] [place] [address] Name: RHONDA KIRKLAND : 1985 Study Date: 11/11/2017 07:48 AM Age: 32 yrs Gender: Female Patient Location: [facility] Reason For Study: Palpitations Ordering Physician: SONNY [...] documented as of this encounter Care Teams Stonemason Relationship Specialty Start Date End Date Sarah [place], PCP - General Family Practice 10/21/11 [address] [address] [place] [address] Sarah [place], PCP - Assigned PCP 07/27/18 [address] [address] [place] [address] Sarah [place], Assigned PCP 03/15/17 10/17/20 [address] [address] [place] [address] documented as of this encounter
--- OUTSIDE RECORDS SUMMARY | 2022-02-13 08:12 | XMS_ITS | Encounter Summary ---
:1985 Author Organization [place] Address [address] [place] [address] Care Team Providers Name Role Phone Sarah [place] PA-C Primary Care Provider Sarah [place] PA-C Unavailable [phone] Sarah [place] PA-C Unavailable [phone] Encounter Details Date Type Department Care Team Description 04/07/2018 [facility] Ryan Bartholomew, RN [address] [place] [address] Social History Tobacco Use Types [...] documented as of this encounter Care Teams Network Systems Consultant Relationship Specialty Start Date End Date Sarah [place], PCP - General Family Practice 10/21/11 [address] [address] [place] [address] Sarah [place], PCP - Assigned PCP 07/27/18 [address] [address] [place] [address] Sarah [place], Assigned PCP 03/15/17 10/17/20 [address] [address] [place] [address] documented as of this encounter
--- OUTSIDE RECORDS SUMMARY | 2022-02-13 08:13 | XMS_ITS | Encounter Summary ---
:1985 Author Organization [place] Address [facility] [place] [address] Care Team Providers Name Role Phone Sarah [place] PA-C Primary Care Provider [phone] Reason for Visit Reason Comments Care Encounter Details Date Type Department Care Team Description 05/19/2016 Office [facility] [address] first in [place], [place] S third trimester [id number] [place], (Primary Dx) [phone] [place] [address] Social History Tobacco Use Types Packs/Day [...] Comments Blood Pressure 100/66 05/19/2016 3:56 PM TIMBER GIRDLER Pulse 83 05/19/2016 3:56 PM TIMBER GIRDLER Temperature 36.4 ??C (97.5 ??F) 05/19/2016 3:56 PM TIMBER GIRDLER Respiratory Rate - - Oxygen Saturation 98% 05/19/2016 3:56 PM TIMBER GIRDLER Inhaled Oxygen Concentration - - Weight 76.7 kg (169 lb 1.6 oz) 05/19/2016 3:56 PM TIMBER GIRDLER Height 167.6 cm (5' 6) 05/19/2016 3:56 PM TIMBER GIRDLER Body Mass Index 27.29 05/19/2016 3:56 PM TIMBER GIRDLER documented in this encounter Patient Instructions Patient InstructionsEve Sandoval CMA - 05/19/2016 4:12 PM CST Return to clinic in 2 weeks. ER GIRDLER documented in this encounter Progress Notes Eve [...] behalf by Eve Sandoval, a trained medical asst. The creation of this document is based the provider's statements to the medical asst. Scribe Eve Sandoval 4:11 PM, May 19, 2016 ASSESSMENT/PLAN: Rhonda Tamayo is a 30 year old year old @ 31w3d wks EGA with EDC 07/18/16 who presents to the clinic for an ob visit. 1) HSV, recurrent:?? one out break 1st tm, suppression 36 weeks on ?? 2) declined genetic testing ?? 3) Follow up in [address] Nadiya Bautista DO MEMBER CERTIFICATION MANAGER [facility] The information in this document, created by the medical asst for me, accurately reflects the services I personally performed and the decisions made by me. I have reviewed and approved this document for accuracy prior to leaving the patient care area. Nadiya Bautista DO 4:09 PM, 05/19/2016 ER GIRDLER documented in this encounter Nursing Notes Eli [...] cuff size: regular right arm ALEXI Fleming ER GIRDLER documented in this encounter Plan of Treatment Not on filedocumented as of this encounter Visit Diagnoses Diagnosis Encounter for supervision of normal firs t in third trimester - Primary Supervision of normal first documented in this encounter Additional Health Concerns Assessment Noted Time PHQ-9 Depression Total Score: 0 02/19/2016 7:19 AM CDT documented as of this encounter Care Teams Grief Counselor Relationship Specialty Start Date End Date Ronaldo-Sarah Doshi PA-C PCP - General Family Practice 10/21/11 [address] [place] [address] documented as of this encounter
--- OUTSIDE RECORDS SUMMARY | 2022-02-13 08:13 | XMS_ITS | Encounter Summary ---
:1985 Author Organization [place] Address [address] [place] [address]. [place] [address] Care Team Providers Name Role Phone Sarah [place] PA-C Primary Care Provider Reason for Visit Reason Onset Date Comments Forms 10/02/2016 [facility] Outpatient Dietitian Physician's Report Encounter Details Date Type Department Care Team Description 10/02/2016 Telephone [facility] Valentina, Forms ([facility] Sarah Aguilar PA-C Family Outpatient Dietitian [address] [place] [id number] [place] [address] JERO Physician's Report) [place] [address] [phone] Social History Tobacco Use Types Packs/Day Years Used Date Former Smoker Smokeless Tobacco: Never Used Alcohol Use Standard Drinks/Week Comments No 0 (1 standard drink = 0.6 oz pure alcoho l) Sex Assigned at Date Recorded Not on file documented as of this encounter Miscellaneous Notes Telephone Encounter - Rachell Peña - 10/02/2016 3:05 PM CDT Form copied and called patient for cigar packer and picker. Brought to front office clerk. Sent to krystle.Rachell Peña Drilling Contractor Telephone Encounter - Rachell Peña - 10/02/2016 1:52 PM CDT Form placed on PCP desk for review and completion. Rachell Peña Drilling Contractor Telephone Encounter - Yasmeen Mccurdy - 10/02/2016 11:17 AM CDT Reason for Call: Form, our goal is to have forms completed with 72 hours, however, some forms may require a visit or additional information. Type of letter, form or note: [facility] Physician's Report Who is the form from?: [facility] Physician's Report (if other please explain) Where did the form come from: Patient or family brought in What clinic location was the form placed at?: [facility] Where the form was placed: [facility] What number is listed as a contact on the form?: No- Patient phone [phone] Additional comments: Patient will cigar packer and picker the form as soon as is completed. Call taken on 10/02/2016 at 11:17 AM by Yasmeen Mccurdy documented in this encounter Plan of Treatment Not on filedocumented as of this encounter Visit Diagnoses Not on filedocumented in this encounter Additional Health Concerns Assessment Noted Time PHQ-9 Depression Total Score: 0 08/21/2016 7:15 AM CDT documented as of this encounter Care Teams C Developer Relationship Specialty Start Date End Date Sarah [place] PA-C PCP - General Family Practice 10/21/11 [address] [place] [address] documented as of this encounter
--- OUTSIDE RECORDS SUMMARY | 2022-02-13 08:13 | XMS_ITS | Encounter Summary ---
:1985 Author Organization [place] Address [facility] [place] [address] Care Team Providers Name Role Phone Sarah Montgomery PA-C Primary Care Provider [phone] Reason for Visit Reason Comments Care Encounter Details Date Type Department Care Team Description 06/23/2016 Office [facility] Nadiya Bautista care in Visit Clinic [facility] third trimester [address] [place] [address] (Primary Dx) [facility] [id number] [facility] [phone] [place] [address] Social History Tobacco Use Types [...] Comments Blood Pressure 90/66 06/23/2016 11:24 AM LEAD CYTOGENETIC TECHNOLOGIST Pulse 81 06/23/2016 11:24 AM LEAD CYTOGENETIC TECHNOLOGIST Temperature 36.7 ??C (98 ??F) 06/23/2016 11:24 AM LEAD CYTOGENETIC TECHNOLOGIST Respiratory Rate - - Oxygen Saturation 98% 06/23/2016 11:24 AM LEAD CYTOGENETIC TECHNOLOGIST Inhaled Oxygen Concentration - - Weight 80.5 kg (177 lb 6.4 oz) 06/23/2016 11:24 AM LEAD CYTOGENETIC TECHNOLOGIST Height 167.6 cm (5' 6) 06/23/2016 11:24 AM LEAD CYTOGENETIC TECHNOLOGIST Body Mass Index 28.63 06/23/2016 11:24 AM LEAD CYTOGENETIC TECHNOLOGIST documented in this encounter Patient Instructions Patient InstructionsNadiya Bautista DO - 06/23/2016 11:34 AM CST Return weekly Remember to do kick counts Perception of at least 10 FMs during 12 hours of normal maternal activity Perception of least 10 FMs over two hours when the mother is at rest and focused on counting Dr. Nadiya Bautista DO Obstetrics and Gynecology [facility] [place] CYTOGENETIC TECHNOLOGIST documented in this encounter Progress Notes Nadiya [...] behalf by Eli Ignacio, a trained medical record technician. The creation of this document is based the provider's statements to the medical record technician. Eli Ignacio June 23, 2016 11:30 AM [...] in this document, created by the medical record technician for me, accurately reflects the services I personally performed and the decisions made by me. I have reviewed and approved this document for accuracy prior to leaving the patient care area. Nadiya Bautista DO June 23, 2016 11:30 AM CYTOGENETIC TECHNOLOGIST documented in this encounter Nursing Notes Eli [...] cuff size: regular right arm ALEXI Fleming CYTOGENETIC TECHNOLOGIST documented in this encounter Plan of Treatment Not on filedocumented as of this encounter Procedures Procedure Name Priority Date/Time Associated Diagnosis Comme nts GROUP B STREP PCR Routine 06/23/2016 12:15 PM care in Results for this LEAD CYTOGENETIC TECHNOLOGIST third trimester procedure ar e in the results section. documented in this encounter Results Strep, Group B by PCR (06/23/2016 12:15 PM LEAD CYTOGENETIC TECHNOLOGIST) [facility] Method Time Signature Group B Strep Vaginal LETCHER PCR Spec [facility] Group B Strep Negative NEG [facility] OF PCR No GBS DNA detected, presumed negative f or GBS or number of bacteria may be [place] [facility] below the limit of detection of the assay. [facility] Assay performed on incubate d broth culture of specimen using [employer] real-time BANK PCR. Specimen Anatomical Collection Method Collection Time Receive d Time (Source) Location / / Volume Laterality 06/23/2016 12:15 06/23/2016 PM LEAD CYTOGENETIC TECHNOLOGIST 12:20 PM LEAD CYTOGENETIC TECHNOLOGIST Nadiya Bautista DO LAB - MICRO GENERAL ORDERABL ES Performing Organization Address City/State/ZIP Code Phon e Number [facility] [address] [place] [address] [facility] [address] [place] [address] documented in this encounter Visit Diagnoses Diagnosis care in third trimester - Prima ry documented in this encounter Additional Health Concerns Assessment Noted Time PHQ-9 Depression Total Score: 0 02/19/2016 7:19 AM CDT documented as of this encounter Care Teams Grain Elevator Superintendent Relationship Specialty Start Date End Date Sarah Montgomery PA-C PCP - General Family Practice 10/21/11 [address] [place] [address] documented as of this encounter
--- OUTSIDE RECORDS SUMMARY | 2022-02-13 08:13 | XMS_ITS | Encounter Summary ---
:1985 Author Organization [place] Address [facility] [place] [address] Care Team Providers Name Role Phone Sarah Montgomery PA-C Primary Care Provider [phone] Encounter Details Date Type Department Care Team Description 05/17/2016 Telephone [facility] Angelique Xie, RN [address] [place] [address] Social History Tobacco Use Types Packs/Day [...] 31 weeks . EVE 2-24 . Paged extrusion die repair manager to her thru [employer] . 10:02 pm . Call [phone] . Triage Note: Guideline Title: : Labor, [...] hour. Follow the directions from your provider's extrusion die repair manager resource if you are unable to speak [...] to push or have a bowel movement. FFIN PLANT OPERATOR documented in this encounter Plan of Treatment Not on filedocumented as of this encounter Visit Diagnoses Not on filedocumented in this encounter Additional Health Concerns Assessment Noted Time PHQ-9 Depression Total Score: 0 02/19/2016 7:19 AM CDT documented as of this encounter Care Teams Time Piece Repairer Relationship Specialty Start Date End Date Ronaldo-Sarah Doshi PA-C PCP - General Family Practice 10/21/11 [address] [place] [address] documented as of this encounter
--- OUTSIDE RECORDS SUMMARY | 2022-02-13 08:13 | XMS_ITS | Encounter Summary ---
:1985 Author Organization [place] Address [address] [place] [address] Care Team Providers Name Role Phone Sarah Montgomery PA-C Primary Care Provider Sarah Montgomery PA-C Unavailable Sarah Montgomery PA-C Unavailable Reason for Visit Reason Onset Date Comments Refill Request 09/23/2017 valACYclovir (VALTRE X) 500 MG tablet Encounter Details Date Type Department Care Team Description 09/23/2017 Refill [facility] Nadiya Bautista efill Request [place] DO [place] (valACYclovir (VALTREX) [address] 500 MG tablet) [place] [address] [place], [place] [phone] [id number] (Wo rk) Social History Tobacco Use Types Packs/Day Years Used Date Former Smoker Smokeless Tobacco: Never Used Alcohol Use Standard Drinks/Week Comments No 0 (1 standard drink = 0.6 oz pure alcoho l) Sex Assigned at Date Recorded Not on file documented as of this encounter Miscellaneous Notes Telephone Encounter - Bushra Wong RN - 09/23/2017 6:24 PM CDT Prescription approved per [facility] Refill Protocol. Due for annual exam. My [...] Dr. Bautista Future Office Visit: Corazon [place] Load Test Mechanic documented in this encounter Plan of Treatment Not on filedocumented as of this encounter Visit Diagnoses Diagnosis HSV (herpes simplex virus) infection Herpes simplex without mention of compli cation documented in this encounter Additional Health Concerns Assessment Noted Time PHQ-9 Depression Total Score: 1 09/22/2017 7:43 AM CDT documented as of this encounter Care Teams Emt Dispatcher Relationship Specialty Start Date End Date Sarah Montgomery, PCP - General Family Practice 10/21/11 [facility] [address] [place] [address] Sarah Montgomery, PCP - Assigned PCP 07/27/18 [facility] [address] [place] [address] Sarah Montgomery, Assigned PCP 03/15/17 10/17/20 PA-C [address] [place] [address] documented as of this encounter
--- OUTSIDE RECORDS SUMMARY | 2022-02-13 08:13 | XMS_ITS | Encounter Summary ---
:1985 Author Organization [place] Address [address] [facility] [place] [address] Care Team Providers Name Role Phone Sarah Montgomery PA-C Primary Care Provider Reason for Visit Reason Comments Care Encounter Details Date Type Department Care Team Description 07/01/2016 Office [facility] Nadiya Bautista [facility] in [facility] [place] third trimester [place] [address] [address] (Primary Dx) [address] [facility] [address] [place] [address] [place] [address] [phone] [address] (Work) [phone] Social History Tobacco Use Types Packs/Day Years [...] Comments Blood Pressure 120/70 07/01/2016 10:57 AM PARKING STATION ATTENDANT Pulse - - Temperature - - Respiratory Rate - - Oxygen Saturation - - Inhaled Oxygen Concentration - - Weight 81.1 kg (178 lb 12.8 oz) 07/01/2016 10:57 AM PARKING STATION ATTENDANT Height 167.6 cm (5' 6) 07/01/2016 10:57 AM PARKING STATION ATTENDANT Body Mass Index 28.86 07/01/2016 10:57 AM PARKING STATION ATTENDANT documented in this encounter Patient Instructions Patient InstructionsGiWaleska maharaj - 07/01/2016 11:04 AM CST Return in [address] Nadiya Bautista DO Obstetrics and Gynecology [facility] [place] ING STATION ATTENDANT documented in this encounter Progress Notes Waleska [...] his/her behalf by Waleska Garcia, a trained lpn or medical assistant. The creation of this document is based the provider's statements to the lpn or medical assistant. Torrie Garcia 11:00 AM, July 01, 2016 [...] information in this document, created by the lpn or medical assistant for me, accurately reflects the services I personally performed and the decisions made by me. I have reviewed and approved this document for accuracy prior to leaving the patient care area. Nadiya Bautista DO 11:00 AM, 07/01/2016 Dr. Nadiya Bautista DO CERAMICS TECHNICIAN [facility] ING STATION ATTENDANT documented in this encounter Nursing Notes Digna [...] kg). Medication Reconciliation: complete Digna Carty CMA ING STATION ATTENDANT documented in this encounter Plan of Treatment Not on filedocumented as of this encounter Visit Diagnoses Diagnosis care in third trimester - Prima ry documented in this encounter Additional Health Concerns Assessment Noted Time PHQ-9 Depression Total Score: 0 02/19/2016 7:19 AM CDT documented as of this encounter Care Teams Welt Trimming Machine Operator Relationship Specialty Start Date End Date Sarah Montgomery PA-C PCP - General Family Practice 10/21/11 [address] [place] [address] documented as of this encounter
--- OUTSIDE RECORDS SUMMARY | 2022-02-13 08:13 | XMS_ITS | Encounter Summary ---
:1985 Author Organization [place] Address [address] [place] [address] Care Team Providers Name Role Phone Sarah Montgomery PA-C Primary Care Provider [phone] Reason for Visit Reason Comments Care Encounter Details Date Type Department Care Team Description 06/02/2016 Office [facility] Nadiya Bautista (Primary Dx) Visit Clinic [address] [address] [facility] [phone] [place] [address] Social History Tobacco Use Types [...] Comments Blood Pressure 110/70 06/02/2016 11:36 AM REDUCTION FURNACE OPERATOR Pulse 73 06/02/2016 11:36 AM REDUCTION FURNACE OPERATOR Temperature 36.7 ??C (98.1 ??F) 06/02/2016 11:36 AM REDUCTION FURNACE OPERATOR Respiratory Rate - - Oxygen Saturation 98% 06/02/2016 11:36 AM REDUCTION FURNACE OPERATOR Inhaled Oxygen Concentration - - Weight 78.1 kg (172 lb 3.2 oz) 06/02/2016 11:36 AM REDUCTION FURNACE OPERATOR Height 167.6 cm (5' 6) 06/02/2016 11:36 AM REDUCTION FURNACE OPERATOR Body Mass Index 27.79 06/02/2016 11:36 AM REDUCTION FURNACE OPERATOR documented in this encounter Patient Instructions Patient InstructionsEve Sandoval CMA - 06/02/2016 11:34 AM CST Return to clinic in [address] Nadiya Bautista DO Obstetrics and Gynecology [facility] [place] CTION FURNACE OPERATOR documented in this encounter Progress Notes [...] his/her behalf by Eve Sandoval, a trained biomedical manager. The creation of this document is based the provider's statements to the biomedical manager. Scribe Eve Sandoval 11:45 AM, June 02, [...] 4) Rx Valtrex Dr. Nadiya Bautista DO CONTROLLER REPAIRER AND TESTER [facility] The information in this document, created by the biomedical manager for me, accurately reflects the services I personally performed and the decisions made by me. I have reviewed and approved this document for accuracy prior to leaving the patient care area. Nadiya Bautista DO 11:44 AM, 06/02/2016 CTION FURNACE OPERATOR documented in this encounter Nursing Notes [...] cuff size: regular right arm ALEXI Fleming CTION FURNACE OPERATOR documented in this encounter Plan of Treatment Not on filedocumented as of this encounter Visit Diagnoses Diagnosis Herpes - Primary Herpes simplex without mention of compli cation documented in this encounter Additional Health Concerns Assessment Noted Time PHQ-9 Depression Total Score: 0 02/19/2016 7:19 AM CDT documented as of this encounter Care Teams Forestry Biology Specialist Relationship Specialty Start Date End Date Ronaldo-Sarah Doshi PA-C PCP - General Family Practice 10/21/11 [address] [place] [address] documented as of this encounter
--- OUTSIDE RECORDS SUMMARY | 2022-02-13 08:13 | XMS_ITS | Encounter Summary ---
:1985 Author Organization [place] Address [address] [place] [address] Care Team Providers Name Role Phone Sarah Montgomery PA-C Primary Care Provider [phone] Encounter Details Date Type Department Care Team Description 03/28/2016 Telephone [facility] Nurse Kiya Michel , RN [facility] [address] [place] [address] Social History Tobacco Use Types Packs/Day [...] the front too. Dr. Mendiola paged to [phone] @ 0714 hrs. Triage Note: Guideline Title: [...] documented as of this encounter Care Teams Rubber Goods Cutter Finisher Relationship Specialty Start Date End Date Ronaldo-Sarah Doshi PA-C PCP - General Family Practice 10/21/11 [address] [place] [address] documented as of this encounter
--- OUTSIDE RECORDS SUMMARY | 2022-02-13 08:13 | XMS_ITS | Encounter Summary ---
:1985 Author Organization [place] Address [address] [place] [address] Care Team Providers Name Role Phone Sarah Montgomery PA-C Primary Care Provider [phone] Reason for Visit Reason Comments Care Imm/Inj TDAP Encounter Details Date Type Department Care Team Description 04/14/2016 Office [facility] Andres Franco for Visit [facility] MD Bertha supervision of Kiana [address] normal first [address] [facility] [place] [address] trimester (Primary [address] Dx) [place], [place] (Work) [address] Social History Tobacco Use [...] Comments Blood Pressure 110/70 04/14/2016 11:00 AM FOREST FIRE OFFICER Pulse - - Temperature - - Respiratory Rate - - Oxygen Saturation - - Inhaled Oxygen Concentration - - Weight 73.1 kg (161 lb 1.6 oz) 04/14/2016 11:00 AM FOREST FIRE OFFICER Height 167.6 cm (5' 6) 04/14/2016 11:00 AM FOREST FIRE OFFICER Body Mass Index 26 04/14/2016 11:00 AM FOREST FIRE OFFICER documented in this encounter Progress Notes Andres Franco MD - 04/14/2016 2:42 PM CST IUP at 26 weeks; questions reviewed ST FIRE OFFICER documented in this encounter Nursing Notes Digna [...] completed using cuff size: patricia Carty CMA ST FIRE OFFICER documented in this encounter Plan of Treatment Not on filedocumented as of this encounter Procedures Procedure Name Priority Date/Time Associated Diagnosis Comme nts GLUCOSE TOLERANCE Routine 04/14/2016 11:27 AM Encounter for Re sults for this GEST SCREEN 1 HOUR FOREST FIRE OFFICER supervision of procedu re are in normal first the results in second section. trimester ANTI TREPONEMA Routine 04/14/2016 11:27 AM Encounter for Resul ts for this FOREST FIRE OFFICER supervision of procedure are in normal first the results in second section. trimester CBC WITH PLATELETS Routine 04/14/2016 11:27 AM Encounter for R esults for this FOREST FIRE OFFICER supervision of procedure are in normal first the results in second section. trimester documented in this encounter Results Anti Treponema (04/14/2016 11:27 AM FOREST FIRE OFFICER) Analysis Performed At Patho logist Time Signature Treponema Negative NEG [facility] [place] [facility] Specimen Anatomical Collection Method Collection Time Receive d Time (Source) Location / / Volume Laterality Blood specimen 04/14/2016 11:27 6 (specimen) AM FOREST FIRE OFFICER 11:32 AM FOREST FIRE OFFICER Andres Franco MD LAB - BLOOD ORDERABLES Performing Organization Address City/State/ZIP Code Phon e Number [facility] [address] [place] [address] [facility] CBC with platelets (04/14/2016 11:27 AM FOREST FIRE OFFICER) athologist Signature WBC 6.6 4.0 - 11.0 [place] 10e9/L [facility] RBC Count 3.98 3.8 - 5.2 [place] 10e12/L [facility] Hemoglobin 12.5 11.7 - [place] 15.7 g/dL [facility] Hematocrit 37.5 35.0 - [place] 47.0 % [facility] MCV 94 78 - 100 [place] fl [facility] MCH 31.4 26.5 - [place] 33.0 pg [facility] MCHC 33.3 31.5 - [place] 36.5 g/dL [facility] RDW 12.7 10.0 - [place] 15.0 % [facility] Platelet Count 220 150 - 450 [place] 10e9/L [facility] Specimen Anatomical Collection Method Collection Time Receive d Time (Source) Location / / Volume Laterality Blood specimen 04/14/2016 11:27 6 (specimen) AM FOREST FIRE OFFICER 11:32 AM FOREST FIRE OFFICER Andres Franco MD LAB - BLOOD ORDERABLES Performing Organization Address City/[facility]/ZIP Code Phon e Number [facility] [address] [place], [place] [address] [address] Glucose tolerance, gest screen, 1 hour (04/14/2016 11:27 AM FOREST FIRE OFFICER) P athologist Signature Glu Gest 80 60 - 129 [facility] Screen 1hr 50g mg/dL [facility] Specimen Anatomical Collection Method Collection Time Receive d Time (Source) Location / / Volume Laterality Blood specimen 04/14/2016 11:27 6 (specimen) AM FOREST FIRE OFFICER 11:32 AM FOREST FIRE OFFICER Andres Franco MD LAB - BLOOD ORDERABLES Performing Organization Address City/State/ZIP Code Phon e Number [facility] [address] [place] [address] documented in this encounter Visit Diagnoses Diagnosis Encounter for supervision of normal firs t in second trimester - Primary Supervision of normal first documented in this encounter Additional Health Concerns Assessment Noted Time PHQ-9 Depression Total Score: 0 02/19/2016 7:19 AM CDT documented as of this encounter Care Teams Tumbler Machine Operator Helper Relationship Specialty Start Date End Date Sarah Montgomery PA-C PCP - General Family Practice 10/21/11 [address] [place] [address] documented as of this encounter
--- OUTSIDE RECORDS SUMMARY | 2022-02-13 08:13 | XMS_ITS | Encounter Summary ---
:1985 Author Organization [place] Address [address] [place] [address] Care Team Providers Name Role Phone Sarah Montgomery PA-C Primary Care Provider Sarah Montgomery PA-C Unavailable Sarah Montgomery PA-C Unavailable Reason for Referral Referral not Required - Closed Specialty Diagnoses / Procedures Referred By Contact Refer red To Contact Diagnoses Palpitations Racing heart beat Sarah Montgomery [facility] [place] Aguilar [address] [place] [address] [place] [address] [place] [address] Phone: [phone] Fax: Referral ID Status Reason Start Date Expiration Date Visits Requ ested Visits Authorized [id number] Closed 10/08/2017 10/08/2018 1 1 V Cardio consult - Closed Specialty Diagnoses / Procedures Referred By Contact Refer red To Contact Diagnoses Racing heart beat Palpitations Family history of ischemic heart disease Sarah Montgomery [facility] [place] Aguilar [address] [place] [address] [place] [address] Phone: [phone] Fax: Referral ID Status Reason Start Date Expiration Date Visits Requ ested Visits Authorized [id number] Closed 10/08/2017 10/08/2018 1 1 Reason for Visit Reason Comments Er F/u Encounter Details Date Type Department Care Team Description 10/08/2017 Office Visit [facility] Valentina, Racing heart beat (Primary Dx); Clinic [place] Sarah Aguilar PA-C Palpitations; [address] [address] [facility] Family history of [place] [address] [phone] Social History Tobacco Use Types Packs/Day Years [...] PA-C - 10/08/2017 1:30 PM CDT SUBJECTIVE: Rhonda Tamayo is a 31 year old female who presents to clinic today for the following health issues: ED/UC Followup: Facility: [facility] Date of visit: 10/07/2017 Reason for visit: [...] symptoms seemed to resolve. Her father of MA atthe age of 42. Was a non-smoker and healthy Problem list and histories reviewed & adjusted, as indicated. Additional history: as documented Current Outpatient Prescriptions Medication Sig Dispense Refill ??? fluticasone (FLONASE) 50 MCG/ACT spray [place] 1-2 sprays into both nostrils daily 16 [...] due to strong family history of early MA Sarah Montgomery PA-C [facility] documented in this encounter Plan of Treatment [...] with platelets differential (10/08/2017 1:53 PM CDT) [facility] Method Time Signature WBC 6.0 4.0 - 10/08/2017 [place] 11.0 2:[address] [facility] 10e9/L [place] RBC Count 4.83 3.8 - 5.2 10/08/2017 [facility] 10e12/L 2:10 PM CDT [facility] [place] Hemoglobin 14.6 11.7 - 10/08/2017 [facility] 15.7 g/dL 2:10 PM CDT [facility] [place] Hematocrit 43.5 35.0 - 10/08/2017 [facility] 47.0 % 2:10 PM CDT [facility] [place] MCV 90 78 - 100 10/08/2017 [facility] fl 2:10 PM CDT [facility] [place] MCH 30.2 26.5 - 10/08/2017 [facility] 33.0 pg 2:10 PM CDT [facility] [place] MCHC 33.6 31.5 - 10/08/2017 [facility] 36.5 g/dL 2:10 PM CDT [facility] [place] RDW 12.9 10.0 - 10/08/2017 [facility] 15.0 % 2:10 PM CDT [facility] [place] Platelet Count 306 150 - 450 10/08/2017 [facility] 10e9/L 2:10 PM CDT [facility] [place] Diff Method Automated 10/08/2017 [facility] Method 2:11 PM CDT [facility] [place] % Neutrophils 48.9 % 10/08/2017 [facility] 2:11 PM CDT [facility] [place] % Lymphocytes 38.3 % 10/08/2017 [facility] 2:11 PM CDT [facility] [place] % Monocytes 10.5 % 10/08/2017 [facility] 2:11 PM CDT [facility] [place] % Eosinophils 1.8 % 10/08/2017 [facility] 2:11 PM CDT [facility] [place] % Basophils 0.5 % 10/08/2017 [facility] 2:11 PM CDT [facility] [place] Absolute 2.9 1.6 - 8.3 10/08/2017 [facility] Neutrophil 10e9/L 2:11 PM CDT [facility] [place] Absolute 2.3 0.8 - 5.3 10/08/2017 [facility] Lymphocytes 10e9/L 2:11 PM CDT [facility] [place] Absolute 0.6 0.0 - 1.3 10/08/2017 [facility] Monocytes 10e9/L 2:11 PM CDT [facility] [place] Absolute 0.1 0.0 - 0.7 10/08/2017 [facility] Eosinophils 10e9/L 2:11 PM CDT [facility] [place] Absolute 0.0 0.0 - 0.2 10/08/2017 [facility] Basophils 10e9/L 2:11 PM CDT [facility] Specimen Anatomical Collection Method Collection Time Receive d Time (Source) Location / / Volume Laterality Blood specimen 10/08/2017 1:53 PM 018 1:54 (specimen) CDT PM CDT Sarah Montgomery PA-C LAB - BLOOD ORDERABLES Performing Organization Address City/[facility]/ZIP Code Phon e Number [facility] [id number] [place] [address]. [place] [address] TSH with free T4 reflex (10/08/2017 1:53 PM CDT) P athologist Signature TSH 2.24 0.40 - 4.00 10/09/2017 [facility] mU/L 10:36 AM CDT [facility] Specimen Anatomical Collection Method Collection Time Receive d Time (Source) Location / / Volume Laterality Blood specimen 10/08/2017 1:53 PM 018 1:54 (specimen) CDT PM CDT Sarah Montgomery PA-C LAB - BLOOD ORDERABLES Performing Organization Address City/[facility] Code Phon e Number [facility] [address] [place] [address] documented in this encounter Visit Diagnoses Diagnosis Racing heart beat - Primary Tachycardia, unspecified Palpitations Family history of ischemic heart disease documented in this encounter Additional Health Concerns Assessment Noted Time PHQ-9 Depression Total Score: 1 09/22/2017 7:43 AM CDT documented as of this encounter Care Teams Lockstitch Hemmer Relationship Specialty Start Date End Date Sarah Montgomery PCP - General Family Practice 10/21/11 [place] [address] [place] [address] Sarah Montgomery PCP - Assigned PCP 07/27/18 [place] [address] [place] [address] Sarah Montgomery, Assigned PCP 03/15/17 10/17/20 [place] [address] [place] [address] documented as of this encounter
--- OUTSIDE RECORDS SUMMARY | 2022-02-13 08:13 | XMS_ITS | Encounter Summary ---
:1985 Author Organization [place] Address [facility] [place] [address] Care Team Providers Name Role Phone Sarah Montgomery PA-C Primary Care Provider [phone] Reason for Visit Reason Comments Care Encounter Details Date Type Department Care Team Description 03/17/2016 Office [facility] Nadiya Bautista care in Visit Clinic [facility] second trimester [id number] [place] [address] (Primary Dx) [facility] [address] [facility] [phone] [place] [address] Social History Tobacco Use Types [...] the medical scribes. Scribe Amrik Dominguez and Eev Sandoval 11:40 AM, March 17, 2016 ASSESSMENT/PLAN: Rhonda Tamayo is a 30 year old year old @ 22w3d wks EGA with EDC 07/18/16 who presents to the clinic for an ob visit. 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 3) Follow up in 4 weeks The information in this document, created by the er medical technician for me, accurately reflects the services I personally performed and the decisions made by me. I have reviewed and approved this document for accuracy prior to leaving the patient care area. Nadiya Bautista DO 11:40 AM, 03/17/2016 Dr. Nadiya Bautista DO SALES TEAM LEADER [facility] documented in this encounter Plan of Treatment Not on filedocumented as of this encounter Visit Diagnoses Diagnosis care in second trimester - Prim steve documented in this encounter Additional Health Concerns Assessment Noted Time PHQ-9 Depression Total Score: 0 02/19/2016 7:19 AM CDT documented as of this encounter Care Teams Automobile Technician Relationship Specialty Start Date End Date Sarah Montgomery PA-C PCP - General Family Practice 10/21/11 [address] [place] [address] documented as of this encounter
--- OUTSIDE RECORDS SUMMARY | 2022-02-13 08:13 | XMS_ITS | Encounter Summary ---
:1985 Author Organization [place] Address [address] [place] [address] Care Team Providers Name Role Phone Sarah Montgomery PA-C Primary Care Provider [phone] Reason for Visit Reason Onset Date Comments No Show 03/02/2017 Encounter Details Date Type Department Care Team Description 03/02/2017 Office Visit [facility] Derek Johnson NO [place] W (Primary Dx) Clinic [place] DEANGELO Jiménez [address] [place] [address] [facility], [address] [place], [place] [address] [place] [address] (Wo rk) [address] [phone] Social History Tobacco Use Types Packs/Day Years [...] documented as of this encounter Care Teams Carpenter Packing Relationship Specialty Start Date End Date Sarah Montgomery PA-C PCP - General Family Practice 10/21/11 [address] [place] [address] documented as of this encounter
--- OUTSIDE RECORDS SUMMARY | 2022-02-13 08:13 | XMS_ITS | Encounter Summary ---
:1985 Author Organization [place] Address [address] [place] [address] Care Team Providers Name Role Phone Sarah Montgomery PA-C Primary Care Provider [phone] Encounter Details Date Type Department Care Team Description 07/07/2016 Telephone [facility] Advisors Rozina Garner, RN [address] [place] [address] Social History Tobacco Use Types Packs/Day Years Used Date Former Smoker Smokeless Tobacco: Never Used Alcohol Use Standard Drinks/Week Comments No 0 (1 standard drink = 0.6 oz pure alcoho l) Sex Assigned at Date Recorded Not on file documented as of this encounter Miscellaneous Notes Telephone Encounter - Rozina Garnre, RN - 07/07/2016 12:04 AM CST Call Type: Triage Call Presenting Problem: 38 weeks , EVE 07/18/2016, Delivering at [facility]. ROM about 20 minutes ago. Clear fluid. a few Mild contractions, denies vaginal bleeding. Continued movement. faculty i on call medical assistant OB paged at [phone] to call patient at [phone] Triage Note: Guideline Title: : Signs of [...] spotting) ? NO Physician Instructions: Care Advice: RIBUTION LINEMAN documented in this encounter Plan of Treatment Not on filedocumented as of this encounter Visit Diagnoses Not on filedocumented in this encounter Additional Health Concerns Assessment Noted Time PHQ-9 Depression Total Score: 0 02/19/2016 7:19 AM CDT documented as of this encounter Care Teams Hospital Receiving Clerk Relationship Specialty Start Date End Date Sarah Montgomery PA-C PCP - General Family Practice 10/21/11 [address] [place] [address] documented as of this encounter
--- OUTSIDE RECORDS SUMMARY | 2022-02-13 08:13 | XMS_ITS | Encounter Summary ---
:1985 Author Organization [place] Address [address] [facility] [place] [address] Care Team Providers Name Role Phone Sarah Montgomery PA-C Primary Care Provider [phone] Reason for Visit Reason Comments Home Care/Hospice Encounter Details Date Type Department Care Team Description 07/13/2016 Documentation Only [facility] and Clive Wells as, Home Care/Hospice Hospice [address] [address] [facility] [address] [place], [place] [address] Social History Tobacco Use Types Packs/Day Years Used Date Former Smoker Smokeless Tobacco: Never Used Alcohol Use Standard Drinks/Week Comments No 0 (1 standard drink = 0.6 oz pure alcoho l) Sex Assigned at Date Recorded Not on file documented as of this encounter Progress Notes Rhonda Mecredes - 07/13/2016 10:10 AM CST [facility] now requests orders and shares plan of care/discharge summaries for some patients through [facility]. Thank you for your assistance in improving collaboration for our patients. [facility] has made 2 attempts to contact patient by phone and text message over the last 4 days to offer a home visit. We have not had any response from patient. Final message was left advising patient to follow up with Primary Care Providers for mom and baby. Thank you for the referral. Sincerely, [facility] [phone] L[address] FIRST OFFICER documented in this encounter Plan of Treatment Not on filedocumented as of this encounter Visit Diagnoses Not on filedocumented in this encounter Additional Health Concerns Assessment Noted Time PHQ-9 Depression Total Score: 0 02/19/2016 7:19 AM CDT documented as of this encounter Care Teams Security Inspector Relationship Specialty Start Date End Date Sarah Montgomery PA-C PCP - General Family Practice 10/21/11 [address] [place] [address] documented as of this encounter
--- OUTSIDE RECORDS SUMMARY | 2022-02-13 08:13 | XMS_ITS | Encounter Summary ---
:1985 Author Organization [place] Address [address] [facility] [place] [address] Care Team Providers Name Role Phone Sarah Montgomery PA-C Primary Care Provider [phone] Reason for Visit Auth/Cert Specialty Diagnoses / Procedures Referred By Contact Refer red To Contact blood bank supervisor Diagnoses Indication for care in labor or delivery state [facility] [address] [facility] [place], [place] [address] Phone: Fax: Referral ID Status Reason Start Date Expiration Date Visits Requ ested Visits Authorized [id number] 1 1 Encounter Details Date Type Department Care Team Description 07/07/2016 Anesthesia Event [facility] Morris Max MD [facility] [address] [facility] [place] [address] [facility] [address] [address] [place], [place] [address] (Wo rk) Anesthesia Record [...] Daigle MD July 08, 2016 8:26 AM ERVATION SCIENCE OFFICER Anesthesia Preprocedure Evaluation - Morris Max MD - 07/07/2016 5:58 PM CONSERVATION SCIENCE OFFICER PAC NOTE: ANESTHESIA PRE EVALUATION: Anesthesia [...] benefits and alternatives discussed with: Patient.. . ERVATION SCIENCE OFFICER Anesthesia Procedure Notes - Morris Max MD - 07/07/2016 5:52 PM CONSERVATION SCIENCE OFFICER Associated Order(s): ANE EPIDURAL BLOCK Peripheral [...] 15cc per hour started. Morris Max MD ERVATION SCIENCE OFFICER documented in this encounter Miscellaneous Notes Addendum Note - Vishal Daigle MD - 07/08/2016 8:26 AM CST Addendum created 07/08/16825 by Vishal Daigle MD Sign clinical note ERVATION SCIENCE OFFICER documented in this encounter Plan of Treatment Not on filedocumented as of this encounter Procedures Procedure Name Priority Date/Time Associated Diagnosis Comme nts ANE EPIDURAL BLOCK Routine 07/07/2016 5:52 PM CONSERVATION SCIENCE OFFICER Procedure Note - Kasey Max MD [...] documented as of this encounter Care Teams Cook Helper Fruit Relationship Specialty Start Date End Date Sarah Montgomery PA-C PCP - General Family Practice 10/21/11 [address] [place] [address] documented as of this encounter
--- OUTSIDE RECORDS SUMMARY | 2022-02-13 08:13 | XMS_ITS | Encounter Summary ---
:1985 Author Organization [place] Address [address] [place] [address]. [place] [address] Care Team Providers Name Role Phone Sarah Montgomery PA-C Primary Care Provider [phone] Reason for Visit Reason Comments Care Encounter Details Date Type Department Care Team Description 06/16/2016 Office [facility] of [address] first in [place], [place] S third trimester [address] [place], (Primary Dx) [phone] [place] [address] Social History Tobacco Use Types Packs/Day [...] Comments Blood Pressure 120/80 06/16/2016 11:29 AM STAFF EDUCATOR Pulse 77 06/16/2016 11:29 AM STAFF EDUCATOR Temperature 36.8 ??C (98.2 ??F) 06/16/2016 11:29 AM STAFF EDUCATOR Respiratory Rate - - Oxygen Saturation 99% 06/16/2016 11:29 AM STAFF EDUCATOR Inhaled Oxygen Concentration - - Weight 80.4 kg (177 lb 3.2 oz) 06/16/2016 11:29 AM STAFF EDUCATOR Height 167.6 cm (5' 6) 06/16/2016 11:29 AM STAFF EDUCATOR Body Mass Index 28.6 06/16/2016 11:29 AM STAFF EDUCATOR documented in this encounter Patient Instructions Patient InstructionsNadiya Bautista, - 06/16/2016 11:36 AM CST Images from the original note were not included. Return weekly Dr. Nadiya Bautista DO Obstetrics and Gynecology [facility] Plan Worksheet NAME: ATTENDANTS I'd like the following people to be present during labor and/or : Partner: Friend/s: Relative/s: Development Consultant: Children: AMENITIES I'd like to: bring music [...] knees whatever feels right at the time BabyGary Plan worksheet - page 3 VAGINAL During [...] as soon as possible after the . BabyGary Plan worksheet - page 4 FEEDING ISSUES [...] deciding about the timing of hospital discharge F EDUCATOR documented in this encounter Progress Notes Kiarra [...] her behalf by Eli Ignacio, a trained director medical science. The creation of this document is based the provider's statements to the director medical science. Eli Ignacio June 16, 2016 11:33 AM See OB flowsheet No vaginal bleeding, no LOF, no contractions ASSESSMENT/PLAN: Rhonda Tamayo is a 30 year old year old @ 35w3d wks EGA with @edc@ who presents to the clinic for an ob visit. 1) Return to clinic in 1 week. 2) Complete GBS test at next visit. Dr. Nadiya Bautista DO SEMICONDUCTOR DIES LOADER [facility] F EDUCATOR documented in this encounter Nursing Notes Eli [...] cuff size: regular right arm ALEXI Fleming F EDUCATOR documented in this encounter Plan of Treatment Not on filedocumented as of this encounter Visit Diagnoses Diagnosis Encounter for supervision of normal firs t in third trimester - Primary Supervision of normal first documented in this encounter Additional Health Concerns Assessment Noted Time PHQ-9 Depression Total Score: 0 02/19/2016 7:19 AM CDT documented as of this encounter Care Teams Cops Relationship Specialty Start Date End Date Sarah Montgomery PA-C PCP - General Family Practice 10/21/11 [address] [place] [address] documented as of this encounter
--- OUTSIDE RECORDS SUMMARY | 2022-02-13 08:13 | XMS_ITS | Encounter Summary ---
:1987 Author Organization [place] Address [facility] [place] [address] Care Team Providers Name Role Phone Sarah Montgomery PA-C Primary Care Provider [phone] Reason for Visit Reason Onset Date Comments Forms 07/17/2016 Encounter Details Date Type Department Care Team Description 07/17/2016 Telephone [facility] Nadiya Bautista Forms Clinic [place] [facility] [place] [address] [facility] [address] [place] [address] [place] [address] [phone] Social History Tobacco Use Types Packs/Day Years Used Date Former Smoker Smokeless Tobacco: Never Used Alcohol Use Standard Drinks/Week Comments No 0 (1 standard drink = 0.6 oz pure alcoho l) Sex Assigned at Date Recorded Not on file documented as of this encounter Miscellaneous Notes Telephone Encounter - Mandi Wang - 07/17/2016 4:09 PM CST Form completed and patient called to bulk picker at FIELD PIPE LINES SUPERVISOR front office supervisor. Copy of form sent to abstraction. NG UNIT FELTING MACHINE OPERATOR Telephone Encounter - Mandi Wang - 07/17/2016 2:44 PM CST Form received from: patient Form requesting following info/need: Physician's statement CHEL needed?: No Location of form: [facility] / Dr. Bautista When completed the route for return: Patient Urogynaecologist NG UNIT FELTING MACHINE OPERATOR documented in this encounter Plan of Treatment Not on filedocumented as of this encounter Visit Diagnoses Not on filedocumented in this encounter Additional Health Concerns Assessment Noted Time PHQ-9 Depression Total Score: 0 02/19/2016 7:19 AM CDT documented as of this encounter Care Teams Shook Machine Operator Relationship Specialty Start Date End Date Sarah Montgomery PA-C PCP - General Family Practice 10/21/11 [address] [place] [address] documented as of this encounter
--- OUTSIDE RECORDS SUMMARY | 2022-02-13 08:13 | XMS_ITS | Encounter Summary ---
:1985 Author Organization [place] Address [address] [place] [address] Care Team Providers Name Role Phone Sarah Montgomery PA-C Primary Care Provider [phone] Sarah Montgomery PA-C Unavailable [phone] Sarah Montgomery PA-C Unavailable Reason for Referral Consultation - Closed Specialty Diagnoses / Procedures Referred By Contact Refer red To Contact Diagnoses Rectal bleeding Sarah Montgomery [facility] [facility] [address] [address] [facility] COUNTY[facility] [address] [place] [address] [place] [address] Fax: Referral ID Status Reason Start Date Expiration Date Visits Requ ested Visits Authorized [id number] Closed 09/21/2017 09/21/2018 1 1 Reason for Visit Reason Comments Rectal Problem Encounter Details Date Type Department Care Team Description 09/21/2017 Office Visit [facility] Valentina, Rectal bleeding (Primary Dx); Clinic [place] Sarah Aguilar PA-C Constipation, unspecified constipation t [facility] [address] [place] [address] [place] [address] [phone] Social History Tobacco Use Types Packs/Day Years [...] encounter Progress Notes Sarah Montgomery PA-C - 09/21/2017 1:00 PM CDT SUBJECTIVE: [...] 3 ??? fluticasone (FLONASE) 50 MCG/ACT spray [place] 1-2 sprays into both nostrils daily (Patient [...] co,onoscopy and GI referral Sarah Montgomery PA-C [facility] documented in this encounter Nursing Notes [...] documented as of this encounter Care Teams Cable Television Line Technician Relationship Specialty Start Date End Date Sarah Montgomery, PCP - General Family Practice 10/21/11 [place] [address] [place] [address] Sarah Montgomery PCP - Assigned PCP 07/27/18 [place] [address] [place] [address] Sarah Montgomery, Assigned PCP 03/15/17 10/17/20 [place] [address] [place] [address] documented as of this encounter
--- OUTSIDE RECORDS SUMMARY | 2022-02-13 08:13 | XMS_ITS | Encounter Summary ---
:1985 Author Organization [place] Address [address] [place] [address] Care Team Providers Name Role Phone Sarah Montgomery PA-C Primary Care Provider [phone] Reason for Visit Reason Onset Date Comments Medication Request 09/16/2016 herpes outbreak Encounter Details Date Type Department Care Team Description 09/16/2016 Telephone [facility] Nadiya Bautista on Request [facility] DO [place] (herpes outbreak) [address] [place] [phone] [id number] Social History Tobacco Use Types Packs/Day Years Used Date Former Smoker Smokeless Tobacco: Never Used Alcohol Use Standard Drinks/Week Comments No 0 (1 standard drink = 0.6 oz pure alcoho l) Sex Assigned at Date Recorded Not on file documented as of this encounter Miscellaneous Notes Telephone Encounter - Janet Tejada RN - 09/16/2016 11:04 AM CDT Pt notified RX sent Jnaet Tejada RN Telephone Encounter - Nadiya Bautista DO - 09/16/2016 10:40 AM CDT Patient has delivered, which is good I will call in refill plz advise Dr. Nadiya Bautista DO Obstetrics and Gynecology [facility] [place] Telephone Encounter - Christine Colunga RN - [...] documented as of this encounter Care Teams Local Superintendent Relationship Specialty Start Date End Date Sarah Montgomery PA-C PCP - General Family Practice 10/21/11 [address] [place] [address] documented as of this encounter
--- OUTSIDE RECORDS SUMMARY | 2022-02-13 08:13 | XMS_ITS | Encounter Summary ---
:1985 Author Organization [place] Address [facility] [place] [address] Care Team Providers Name Role Phone Sarah Montgomery PA-C Primary Care Provider [phone] Reason for Visit Reason Comments Care Encounter Details Date Type Department Care Team Description 02/18/2016 Office [facility] Nadiya Bautista care in Visit Clinic [facility] second trimester [id number] [place] [address] (Primary Dx) [facility] [address] [facility] [phone] [place] [address] Social History Tobacco Use Types Packs/Day [...] Dr. Nadiya Bautista DO Obstetrics and Gynecology [facility] and [place] documented in this encounter Progress Notes Nadiya [...] declined genetic testing Dr. Nadiya Bautista, ? FIELD SECRETARY ?? [facility] documented in this encounter Nursing Notes Eli [...] documented as of this encounter Care Teams Marketing Communications Leader Relationship Specialty Start Date End Date Ronaldo-Sarah Doshi PA-C PCP - General Family Practice 10/21/11 [address] [place] [address] documented as of this encounter
--- OUTSIDE RECORDS SUMMARY | 2022-02-13 08:13 | XMS_ITS | Encounter Summary ---
:1985 Author Organization [place] Address [address] [facility] [place] [address] Care Team Providers Name Role Phone Sarah Montgomery PA-C Primary Care Provider [phone] Reason for Visit Reason Comments UTI Encounter Details Date Type Department Care Team Description 03/10/2016 Office Visit [facility] Catalina Ahuja Dysuri a (Primary Dx) Clinic [place] DIRECTOR OF PUBLIC HEALTH [address] [facility] [address] [address] [phone] [place] [address] Social History Tobacco Use Types Packs/Day [...] intake and cranberry pill Outcome: mild relief Rohnda is here with symptoms of UTI. Afebrile. [...] Age of Onset ??? HEART DISEASE Father [place] at age 42 ??? Depression Father ??? [...] hour(s)) *UA reflex to Microscopic and Culture ([facility] (except [facility]) Result Value Ref Range Color Urine Yellow Appearance Urine Clear Glucose Urine Negative NEG mg/dL Bilirubin Urine Negative NEG Ketones Urine Negative NEG mg/dL Specific [place] Urine 1.015 1.003 - 1.035 Blood Urine [...] - *UA reflex to Microscopic and Culture ([facility] (except [place] and [place]) Patient is in agreement with the plan. Following up for next visit early next week. Catalina Ahuja NP [facility] documented in this encounter Nursing Notes Lio [...] (ABNORMAL) *UA reflex to Microscopic and Culture ([facility] (except [place] and [place]) (03/10/2016 9:31 AM CDT) [facility] Method Time Signature Color Urine Yellow [facility] Appearance Urine Clear [facility] Glucose Urine Negative NEG mg/dL [facility] Bilirubin Urine Negative NEG [facility] Ketones Urine Negative NEG mg/dL [facility] Specific [place] 1.015 1.003 - [place] Urine 1.035 [facility] Blood Urine Negative NEG [facility] pH Urine 7.5 (H) 5.0 - 7.0 [place] pH [facility] Protein Albumin Negative NEG mg/dL [facility] Urobilinogen 0.2 0.2 - 1.0 [place] Urine EU/dL [facility] Nitrite Urine Negative NEG [facility] Leukocyte Negative NEG [place] Esterase Urine [facility] Source Midstream [place] Urine [facility] Specimen Anatomical Collection Method Collection Time Receive d Time (Source) Location / / Volume Laterality Urine specimen 03/10/2016 9:31 AM 016 9:36 (specimen) CDT AM CDT Catalina Ahuja NP LAB - URINE ORDERABLES Performing Organization Address City/State/ZIP Code Phon e Number [facility] [address] [place] [address] documented in this encounter Visit Diagnoses Diagnosis Dysuria - Primary documented in this encounter Additional Health Concerns Assessment Noted Time PHQ-9 Depression Total Score: 0 02/19/2016 7:19 AM CDT documented as of this encounter Care Teams Social Media Specialist Relationship Specialty Start Date End Date Sarah Montgomery PA-C PCP - General Family Practice 10/21/11 [address] [place] [address] documented as of this encounter
--- OUTSIDE RECORDS SUMMARY | 2022-02-13 08:13 | XMS_ITS | Encounter Summary ---
:1985 Author Organization [place] Address [address] [place] [address] Care Team Providers Name Role Phone Sarah Montgomery PA-C Primary Care Provider [phone] Encounter Details Date Type Department Care Team Description 09/13/2016 Telephone [facility] Nurse Michelle Ardon, RN [employer] [address] [employer] [place] [address] Social History Tobacco Use Types Packs/Day [...] documented as of this encounter Care Teams Ordnance Truck Installation Supervisor Relationship Specialty Start Date End Date Sarah Montgomery PA-C PCP - General Family Practice 10/21/11 [address] [place] [address] documented as of this encounter
--- OUTSIDE RECORDS SUMMARY | 2022-02-13 08:13 | XMS_ITS | Encounter Summary ---
:1985 Author Organization [place] Address [address] [facility] [place] [address] Care Team Providers Name Role Phone Sarah Montgomery PA-C Primary Care Provider [phone] Sarah Montgomery PA-C Unavailable [phone] Sarah Montgomery PA-C Unavailable Reason for Visit Reason Onset Date Comments No Show 08/24/2017 Encounter Details Date Type Department Care Team Description 08/24/2017 Office Visit [facility] Catalina Ahuja, JOSH ANTON W (Primary Dx) [facility] [address] [facility] [address] [phone] [place], [place] [address] Social History Tobacco Use [...] as of this encounter Care Teams Process Machine Operator Relationship Specialty Start Date End Date Sarah Montgomery, PCP - General Family Practice 10/21/11 [place] [address] [place] [address] Sarah Montgomery, PCP - Assigned PCP 07/27/18 [place] [address] [place] [address] Sarah Montgomery, Assigned PCP 03/15/17 10/17/20 [place] [address] [place] [address] documented as of this encounter
--- OUTSIDE RECORDS SUMMARY | 2022-02-13 08:13 | XMS_ITS | Encounter Summary ---
:1985 Author Organization [place] Address [facility] [place] [address] Care Team Providers Name Role Phone Sarah Montgomery PA-C Primary Care Provider [phone] Reason for Visit Reason Comments Urgent Care Sinus Problem Sore throat for x2 weeks, R side facial pain and R ear, Myalgias, Sinus pressure, nasal congestion Encounter Details Date Type Department Care Team Description 12/21/2016 Office Visit [facility] Carmelita, Karley Throat p ain (Primary Dx); Urgent Care Philip Anaya MD Acute sinusitis with symptoms > 10 days; [address] Acute seasonal allergic [place] [address] [phone] Social History Tobacco Use Types Packs/Day Years [...] with drainage. Date Last Reviewed: 02/23/2016 ?? [phone] [employer]. [address] [place] [address]. All rights reserved. This information is not [...] a towel soaked in hot water. Or, search engine optimization manager theshower and direct the hot spray onto your face. Using a vaporizer along with a menthol rub at night may also help.? An??expectorant??containing guaifenesin may help thin the mucus and promote drainage from the sinuses. ?? Gadu-oja-tnbmyys??decongestants??may be used unless a similar medicine was [...] decongestants. They can raise blood pressure.) ?? Hrop-oui-sphvpce??antihistamines??may help if allergies contributed to your sinusitis. [...] 10 days Date Last Reviewed: 09/04/2014 ?? 5519-7121 [employer]. [address] [place] [address], [place] [address]. All rights reserved. This information is not [...] Age of Onset ??? HEART DISEASE Father [place] at age 42 ??? Depression Father ??? [...] days - fluticasone (FLONASE) 50 MCG/ACT spray; Ray 1-2 sprays into both nostrils daily - [...] Component Value Ref Test Analysis Performed At [facility] Method Time Signature Specimen Throat DARDANELLE Description [facility] Culture Micro No beta DARDANELLE hemolytic [facility] Streptococcus LA VETA Group A isolated Micro Report FINAL 12/22/2016 DARDANELLE Status [facility] Specimen Anatomical Collection Method Collection Time Receive d Time (Source) Location / / Volume Laterality Specimen from 12/21/2016 3:57 PM 12/22/19 17 3:58 throat CDT PM CDT (specimen) Karley Britton MD LAB - MICRO GENERAL ORDERABL ES Performing Organization Address City/State/ZIP Code Phon e Number [facility] [address] [place] [address] Rapid strep screen (12/21/2016 3:57 PM CDT) Component Value Ref Test Analysis Performed At [facility] gist Range Method Time Signature Specimen Throat DARDANELLE Description [facility] Rapid Strep A NEGATIVE: No Group A strepto coccal antigen detected by immunoassay, await DARDANELLE Screen culture report. [facility] Micro Report FINAL 12/21/2016 DARDANELLE Status [facility] Specimen Anatomical Collection Method Collection Time Receive d Time (Source) Location / / Volume Laterality Specimen from 12/21/2016 3:57 PM 12/22/19 17 3:58 throat CDT PM CDT (specimen) Karley Britton MD LAB - MICRO GENERAL ORDERABL ES Performing Organization Address City/State/ZIP Code Phon e Number [facility] [address] [place] [address] documented in this encounter Visit Diagnoses Diagnosis Throat pain - Primary Acute sinusitis with symptoms > 10 days Acute sinusitis, unspecified Acute seasonal allergic rhinitis due to pollen documented in this encounter Additional Health Concerns Assessment Noted Time PHQ-9 Depression Total Score: 0 08/21/2016 7:15 AM CDT documented as of this encounter Care Teams Sheltered Workshop Executive Director Relationship Specialty Start Date End Date Sarah Montgomery PA-C PCP - General Family Practice 10/21/11 [address] [place] [address] documented as of this encounter
--- OUTSIDE RECORDS SUMMARY | 2022-02-13 08:13 | XMS_ITS | Encounter Summary ---
:1985 Author Organization [place] Address [facility] [place] [address] Care Team Providers Name Role Phone Sarah Montgomery PA-C Primary Care Provider [phone] Reason for Visit Reason Comments Abdominal Pain Encounter Details Date Type Department Care Team Description 05/17/2016 - Hospital Encounter [facility] Nadiya Bautista 05/18/2016 [facility] [place] [address] [facility] [address] [facility] [address] [place], [place] [phone] [id number] Social History Tobacco Use Types Packs/Day Years [...] Comments Blood Pressure 112/77 05/17/2016 11:15 PM ELECTRONIC DEVICE REPAIRER Pulse 70 05/17/2016 11:15 PM ELECTRONIC DEVICE REPAIRER Temperature 37.1 ??C (98.7 ??F) 05/17/2016 11:15 PM ELECTRONIC DEVICE REPAIRER Respiratory Rate 16 05/17/2016 11:15 PM ELECTRONIC DEVICE REPAIRER Oxygen Saturation - - Inhaled Oxygen Concentration - - Weight 73 kg (161 lb) 05/17/2016 11:15 PM ELECTRONIC DEVICE REPAIRER Height 167.6 cm (5' 6) 05/17/2016 11:15 PM ELECTRONIC DEVICE REPAIRER Body Mass Index 25.99 05/17/2016 11:15 PM ELECTRONIC DEVICE REPAIRER documented in this encounter Discharge Instructions Discharge [...] (see handout) Call your doctor or nurse salesperson art objects if your baby is moving less than [...] constipation Follow-up: As scheduled in the clinic TRONIC DEVICE REPAIRER AttachmentsThe following attachments cannot be sent through Care Everywhere.KICK COUNTS (LAO)CONSTIPATION (ADULT) (LAO)BACK PAIN DURING , RELIEVING: TAILOR SIT, TRUNK TURN (LAO)BACK PAIN (LOW) OR LEG PAIN: POSSIBLE CAUSES (LAO)documented in this encounter Medications at Time of [...] floor with steady gait in stable condition. TRONIC DEVICE REPAIRER Provider Notification - Rossi Kelly RN - [...] frequent urination. Orders received to DC home. TRONIC DEVICE REPAIRER Plan of Care - Rossi Kelly RN - 05/17/2016 10:50 PM CST 31.1 here with c/o mid/lower back and pelvic pain when ambulating and sharp pain in her right hip. 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 Pt states she is constipated and takingprune juice. Assessment completed as charted, SVE closed. Will continue to monitor. TRONIC DEVICE REPAIRER documented in this encounter Plan of Treatment Not on filedocumented as of this encounter Procedures Procedure Name Priority Date/Time Associated Comments Diagnosis WET PREPARATION STAT 05/17/2016 11:48 Results for this PM ELECTRONIC DEVICE REPAIRER procedure are i n the results section. ROUTINE UA WITH STAT 05/17/2016 10:55 Results for this MICROSCOPIC REFLEX TO PM ELECTRONIC DEVICE REPAIRER proced ure are in CULTURE the results section. documented in this encounter Results Wet prep (05/17/2016 11:48 PM ELECTRONIC DEVICE REPAIRER) [employer] Method Time Signature Specimen Vagina [facility] Wet Prep Few WBC'S seen [place] No Trichomonas seen [facility] No clue cells seen [facility] No yeast seen Micro Report FINAL [place] Status 05/18/2016 [facility] Specimen Anatomical Collection Method Collection Time Receive d Time (Source) Location / / Volume Laterality Specimen from 05/17/2016 11:48 05/18/2016 vagina PM ELECTRONIC DEVICE REPAIRER 12:15 AM ELECTRONIC DEVICE REPAIRER (specimen) Nadiya Bautista DO LAB - MICRO GENERAL ORDERABL ES Performing Organization Address City/State/ZIP Code Phon e Number [facility] [address] [place] [address] [facility] [address] [phone] (ABNORMAL) UA with Microscopic reflex to Culture (05/17/2016 10:55 PM ELECTRONIC DEVICE REPAIRER) [employer] Method Time Signature Color Urine Straw [facility] Appearance Urine Clear [facility] Glucose Urine Negative NEG mg/dL [facility] Bilirubin Urine Negative NEG [facility] Ketones Urine Negative NEG mg/dL [facility] Specific [place] 1.002 (L) 1.003 - [place] Urine 1.035 [facility] Blood Urine Negative NEG [facility] pH Urine 6.0 5.0 - 7.0 [place] pH [facility] Protein Albumin Negative NEG mg/dL [facility] Urobilinogen Normal 0.0 - 2.0 [place] mg/dL mg/dL [facility] Nitrite Urine Negative NEG [facility] Leukocyte Negative NEG [place] Esterase [facility]rine [facility] Source Midstream [place] Urine [facility] WBC Urine 0 0 - 2 [facility] RBC Urine 0 0 - 2 [facility] Bacteria Urine Few (A) NEG /HPF [facility] Squamous <1 0 - 1 [place] Epithelial /HPF /HPF [facility] Specimen Anatomical Collection Method Collection Time Receive d Time (Source) Location / / Volume Laterality Urine specimen URINE SPECIMEN 05/17/2016 10:55 016 (specimen) OBTAINED BY CLEAN PM ELECTRONIC DEVICE REPAIRER 11:[address] CATCH PROCEDURE / Unknown Nadiya Bautista DO LAB - URINE ORDERABLES Performing Organization Address City/State/ZIP Code Phon e Number [place] [address] [place] [address] [facility] [address] [place], [place] [address] [place] [address] documented in this encounter Visit Diagnoses Diagnosis Encounter for triage in patient documented in this encounter Additional Health Concerns Assessment Noted Time PHQ-9 Depression Total Score: 0 02/19/2016 7:19 AM CDT documented as of this encounter Care Teams Gear Coding Machine Operator Relationship Specialty Start Date End Date Sarah Montgomery PA-C PCP - General Family Practice 10/21/11 [address] [place] [address] documented as of this encounter
--- OUTSIDE RECORDS SUMMARY | 2022-02-13 08:13 | XMS_ITS | Encounter Summary ---
:1985 Author Organization [place] Address [address] [place] [address] Care Team Providers Name Role Phone Sarah Montgomery PA-C Primary Care Provider [phone] Reason for Visit Reason Comments Spontaneous Rupture of Membrane Auth/Cert Specialty Diagnoses / Procedures Referred By Contact Refer red To Contact ferryboat captain Diagnoses Indication for care in labor or delivery state [place] [address] [place], [place] [address] Phone: Fax: Referral ID Status Reason Start Date Expiration Date Visits Requ ested Visits Authorized [id number] 1 1 Encounter Details Date Type Department Care Team Description 07/07/2016 - Hospital Encounter [facility] Morris Murray MD 07/09/2016 [facility] Oxana Wells MD 303 [facility] 100 131 160 [place], [place] [id number] [address] [place] [address] Social History Tobacco Use Types Packs/Day Years Used Date Former Smoker Smokeless Tobacco: Never Used Alcohol Use Standard Drinks/Week Comments No 0 (1 standard drink = 0.6 oz pure alcoho l) Sex Assigned at Date Recorded Not on file documented as of this encounter Last Filed Vital Signs Vital Sign Reading Time Taken Comments Blood Pressure 127/81 07/09/2016 6:00 PM [employer] Pulse 81 07/09/2016 6:00 PM [employer] Temperature 36.7 ??C (98 ??F) 07/09/2016 6:00 PM [employer] Respiratory Rate 18 07/09/2016 6:00 PM [employer] Oxygen Saturation - - Inhaled Oxygen Concentration - - Weight 80.7 kg (178 lb) 07/07/2016 12:34 AM [employer] Height 167.6 cm (5' 6) 07/07/2016 12:34 AM [employer] Body Mass Index 28.73 07/07/2016 12:34 AM [employer] documented in this encounter Discharge Instructions Discharge InstructionsWaleska Bernstein RN - 07/09/2016 10:58 AM CST Make an appointment to follow up with your primary OB in 6 weeks : [phone] [facility] Care: [phone] Vaginal Delivery Instructions Activity ?? Ask family [...] hands. Keep your nails clean and short. [employer] documented in this encounter Medications at Time of Discharge Medication Sig Dispensed Refills Start Date End Date Vit-Fe Take 1 tablet by 0 Fumarate-FA ( mouth daily Reported MULTIVITAMIN PLUS IRON) on 08/20/2016 27-0.8 MG TABS documented as of this encounter Progress Notes Bina Morgan MD - 07/09/2016 9:26 AM CST [facility] Obstetrics Post- Progress Note Assessment and Plan: [...] studies have been ordered Bina Morgan MD [employer] Christina Mendiola MD - 07/08/2016 8:55 AM CST [facility] Post- Progress Note Assessment and Plan: Assessment: [...] does not need MMR vaccine ??? Tdap (bjskcbc-sfxwkuwcpo-idhig pertussis) (ADACEL) injection 0.5 mL Physical Exam: [...] studies have been ordered Christina Mendiola MD [employer] documented in this encounter H&P Notes Oxana Wells MD - 07/07/2016 9:06 AM CST [facility] Labor and Delivery History and Physical Rhonda [...] Negative Negative for C. trachomatis rRNA by business objects architect mediated amplification. A negative result by business objects architect mediated amplification does not preclude the presence of C. trachomatis infection because results are dependent on proper and adequate collection, absence of inhibitors, and sufficient rRNA to be detected. [facility] 01/14/2016 Negative Negative for N. gonorrhoeae rRNA by business objects architect mediated amplification. A negative result by business objects architect mediated amplification does not preclude the presence [...] on incubated broth culture of specimen using [employer] real-time PCR. Active Problem List Patient Active [...] aug and epidural prn Oxana Wells MD [employer] documented in this encounter Miscellaneous Notes Note [...] at bedside not needed at this time. [employer] Plan of Care - Waleska Bernstein RN [...] PM per Dr. Gooden - see note. [employer] Plan of Care - Brenda Garcia RN - 07/09/2016 6:01 AM CST Problem: Goal Outcome Summary Goal: Goal Outcome Summary Outcome: Improving VSS. Independent with cares for self and infant. FOB at bedside and supportive. Pain managed using ibuprofen. , calling once this shift for assistance, tearful. Pt was reassured and encouraged to call for assistance. [employer] Plan of Care - Yvette Campos RN - 07/08/2016 9:42 PM CST Problem: Goal Outcome Summary Goal: Goal Outcome Summary Outcome: Improving Doing well with self and infant cares, breast feeding independently. Declines offers of pain medication this shift. Denies difficulty voiding. FOB present and supportive. [employer] Plan of Care - Waleska Bernstein RN [...] attentive to 's needs. Continue to monitor. [employer] Plan of Care - Brenda Garcia RN [...] spouse present. Plan: Anticipate discharge on 07/09/2016. [employer] L&D Delivery Note - Oxana Wells MD - 07/07/2016 11:24 PM CST OB Vaginal Delivery Note Rhonda Tamayo Age: [age] year old Date of : 1985 GA: 38w3d GP: Labor Complications: None EBL: mL QBL: 45 mL Delivery Type: Vaginal, Spontaneous Delivery ROM to Delivery Time: 23h 29m [place] Weight: 1 Minute 5 Minute 10 Minute [...] Two Team Members Dr roshan Islas, RN Abbot Suture Abbot Sponges Instruments Initial counts 2 5 Added [...] Cord Blood Disposition: Lab Gases Sent?: No [place] Resuscitation Methods: None Skin to Skin and Feeding Plan Skin to skin initiation date/time: 07/07/16 2311 Skin to skin with: Mother Skin to skin end date/time: How do you plan to feed your baby: Labor Events and Shoulder Dystocia Tracing Prior to Delivery: Category 1 Shoulder dystocia present?: Neg Delivery (Maternal) (Provider to Complete) ([id number]) Episiotomy: None Perineal lacerations: 1st Repaired?: No Vaginal laceration?: No Cervical laceration?: No Mother's Information Mother: [place]onda whyte #[id number] Start of Mother's Information IO Blood Loss 07/07/16 1812 - 07/07/16 2324 Mom's I/O Activity End of Mother's Information Mother: WallingfordRhonda whyte #[id number] Delivery - Provider to Complete ([id number]) Delivering clinician: OXANA WELLS Attempted Delivery Types (Choose all that apply): Spontaneous Vaginal Delivery Delivery Type (Choose the 1 that will go to the History): Vaginal, Spontaneous Delivery Placenta Delayed Cord Clamping: Done Date/Time: 07/07/2016 11:11 PM Removal: Spontaneous Disposition: Hospital disposal Anesthesia Method: Epidural Cervical dilation at placement: 4-7 Presentation and Position Presentation: Vertex Position: Middle Occiput Anterior Oxana Wells MD [employer] Provider Notification - Holley Aceves RN - 07/07/2016 9:29 PM CST 07/07/169 Provider Notification Provider Name/Title Dr Wells Method of Notification Phone Request Evaluate - Remote MD called for update. Notified that pt is 10/100/0 and not feeling pressure. MD would still like pt to start pushing. [employer] Provider Notification - Holley Aceves RN - 07/07/2016 9:05 PM CST 07/07/162104 Provider Notification Provider Name/Title Dr Wells Method of Notification Phone Request Evaluate - Remote MD notified of SVE. Ok to labor down if needed. Call when ready for delivery. [employer] Provider Notification - Holley Aceves RN - [...] to continue with current plan. 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 [employer] Provider Notification - Alona Dash RN - 07/07/2016 8:34 AM CST 07/07/16 0830 Provider Notification Provider Name/Title Roshan Method of Notification In Department MD in department and updated on SVE. No new orders at this time. Will continue to monitor. [employer] Plan of Care - Juanita Burgos RN - 07/07/2016 7:25 AM CST Bedside report given to KELLIE Cardona. Care transferred at this time. [employer] Provider Notification - Juanita Burgos RN - [...] pt on POC and continue to monitor. [employer] Plan of Care - Juanita Burgos RN - 07/07/2016 2:25 AM CST Attempting Shyla placement from 0155 to 0225. Unable to trace FHR with Shyla Monitor. External US and toco replaced after attempt. [employer] Provider Notification - Juanita Burgos RN - [...] pt on POC and continue to monitor. [employer] Plan of Care - Juanita Burgos RN - 07/07/2016 12:30 AM CST Data: [facility] at 0030. Reason for maternal/ assessment per [...] agreement with plan. Will contact Dr Murray. [employer] documented in this encounter Plan of Treatment Not on filedocumented as of this encounter Procedures Procedure Name Priority Date/Time Associated Diagnosis Comme nts ABO AND RH STAT 07/07/2016 2:15 AM Results f or this [employer] procedure are i n the results section. ANTI TREPONEMA STAT 07/07/2016 1:50 AM Results for this [employer] procedure are i n the results section. RUPTURE OF Routine 07/07/2016 12:50 AM Results for this [facility] [employer] procedure are i n AMNISURE the results section. documented in this encounter Results ABO and Rh (07/07/2016 2:15 AM [employer]) Analysis Performed At Patho logist Time Signature ABO A [facility] RH(D) Pos [facility] Specimen 07/10/2016 [facility] Specimen Anatomical Collection Method Collection Time Receive d Time (Source) Location / / Volume Laterality Blood specimen 07/07/2016 2:15 AM 017 2:26 (specimen) [employer] AM [facility] Morris Murray MD LAB - BLOOD BANK TEST ORDER Performing Organization Address City/[facility]/ZIP Code Phon e Number [facility] [address] [place], [place] [address] [address] [address] [address] [place], [place] [address], [facility] [phone] Anti Treponema (07/07/2016 1:50 AM [employer]) Analysis Performed At Patho logist Time Signature Treponema Negative NEG [facility] Specimen Anatomical Collection Method Collection Time Receive d Time (Source) Location / / Volume Laterality Blood specimen 07/07/2016 1:50 AM 017 2:06 (specimen) [employer] AM [facility] Morris Murray MD LAB - BLOOD ORDERABLES Performing Organization Address City/[facility]/ZIP Code Phon e Number [facility] [address] [place] [address] [facility] (ABNORMAL) Rupture of membranes by Amnisure (07/07/2016 12:50 AM [employer]) P athologist Signature Amnisure Positive (A) NEG [facility] Specimen (Source) Anatomical Collection Method Collection Time Re ceived Time Location / / Volume Laterality Cervicovaginal VAGINAL STRUCTURE 07/07/2016 12:50 02/1 07/2016 Secretions / Unknown AM [employer] 12:58 AM [employer] Morris Murray MD LAB - BODY FLUIDS ORDERABLES Performing Organization Address City/[facility]/ZIP Code Phon e Number [facility] [address] [place], [place] [address] [facility] [address] [place], [place] [address] [phone] documented in this encounter Visit Diagnoses Diagnosis [...] (TYLENOL) tablet 650 Given 07/08/2016 1:50 PM [employer] 650 mg mg 650 mg, Oral, EVERY [...] (PF) (SUBLIMAZE) injection Given 06/25 4:51 PM [employer] 100 mcg 100 mcg 100 mcg, Intravenous, EVERY 1 HOUR PRN, moderate to severe pain, Starting on Thu07/07/16 at 1126 Given 07/07/2016 3:18 PM [employer] 100 mcg Given 07/07/2016 1:36 PM [employer] 100 mcg hydrocortisone 2.5 % cream Rectal, 3 TIMES DAILY PRN, hemorrhoids, Starting on Thu07/07/16 at 2327, Apply to hemorrhoids. Send only if nurse requests. ibuprofen (ADVIL/MOTRIN) tablet 400-800 mg Given 07/09/2016 8:33 AM [employer] 800 mg 400-800 mg, Oral, EVERY 6 HOURS PRN, other, cramping, Starting on Thu07/07/16 at 2327, Max dose 3200 mg/day. Given 07/09/2016 12:27 AM [employer] 800 mg Given 07/08/2016 8:41 AM [employer] 800 mg influenza quadrivalent (PF) vacc Given 07/09/2016 8:34 AM [employer] 0. 5 mLs Left Deltoid age 5 [...] 1,000 mL New Bag 07/07/2016 5:25 PM [employer] 1,000 mLs Intravenous, 1,000 mL, ONCE PRN, [...] ringers infusion New Bag 07/07/2016 9:48 PM [employer] 125 mL/hr at 125 mL/hr, Intravenous, CONTINUOUS, Starting on Thu07/07/16 at 0130, Until Thu07/09/16 at 0810 New Bag 07/07/2016 1:36 PM [employer] 125 mL/hr lanolin ointment Topical, EVERY 1 [...] and rubella vaccine Given 07/09/2016 10:11 AM [employer] 0.5 mLs Left Arm (MMR) injection 0.5 [...] Ordered via OB misoprostol (CYTOTEC) Hemorrhage PANEL ([id number]) misoprostol (cervical ripening) (CYTOTEC) Given 07/07/2016 6:05 AM [employer] 25 mcg quarter-tab 25 mcg 25 mcg, [...] units in New Bag 07/07/2016 11:14 PM [employer] 340 mL/hr 340 mL/hr 500 mL 0.9% [...] mL/hr units in 500 mL 0.9% PM [employer] NaCl infusion 1-24 charlette-units/min (1-24 mL/hr), Intravenous, [...] ripening medication. Rate/Dose Verify 07/07/2016 7:15 PM [employer] 5 charlette-units/min 5 mL/hr Rate/Dose Verify 07/07/2016 6:45 PM [employer] 4 charlette-units/min 4 mL/hr oxytocin (PITOCIN) 30 units in New Bag 07/07/2016 11:46 PM [employer] 100 mL/hr 100 mL/hr 500 mL 0.9% [...] for loose stools. Given 07/08/2016 8:13 PM [employer] 1 tablet Given 07/08/2016 8:41 AM [employer] 2 tablets sodium phosphate (FLEET ENEMA) 1 enema 1 enema, Rectal, DAILY PRN, constipation , Starting on Thu07/09/16 at 0000, Use if bisacodyl not effective documented in this encounter Active and Recently Administered Medications Times are shown in [employer]. Scheduled Medication Order 07/07/2016 07/08/2016 07/09/2016 influenza [...] po BID. Hold for loose stools. Tdap (jrjmdxu-yjxipsxxpt-spmqs pertussis) (ADACEL) injection 0.5 mL 1359 (Not [...] Ordered via OB misoprostol (CYTOTEC) Hemorrhage PANEL ([id number]) misoprostol (CYTOTEC) tablet 400 mcg 400 mcg, [...] documented as of this encounter Care Teams Deburrer Machine Relationship Specialty Start Date End Date Sarah Montgomery PA-C PCP - General Family Practice 10/21/11 [address] [place] [address] documented as of this encounter
--- OUTSIDE RECORDS SUMMARY | 2022-02-13 08:13 | XMS_ITS | Encounter Summary ---
:1985 Author Organization [place] Address [facility] [place] [address] Care Team Providers Name Role Phone Sarah Montgomery PA-C Primary Care Provider [phone] Reason for Visit Reason Onset Date Comments Vaginal Discharge 07/02/2016 mucus plug Encounter Details Date Type Department Care Team Description 07/02/2016 Telephone [facility] Nadiya Bautista Vaginal Discharge [facility] DO [place] (mucus plug) [place] [address] [facility] [address] [place], [place] [address] [address] [place], [place] [phone] [address] (Work) [phone] Social History Tobacco Use Types Packs/Day Years [...] call with questions/concerns to nurse advisor line. NITION COMPONENTS INSPECTOR Telephone Encounter - Nadiya Bautista DO - 07/02/2016 4:32 PM AMMUNITION COMPONENTS INSPECTOR Please have her watch for contractions and if labor starts call back If the baby is moving well then ok to wait, labor could be soon but will have to wait For contractions 5 min apart for 1 hour, lasting [address] Nadiya Bautista DO Obstetrics and Gynecology [facility] NITION COMPONENTS INSPECTOR Telephone Encounter - Michelle Mayo - 07/02/2016 [...] but no bleeding today. Please advise, thanks. NITION COMPONENTS INSPECTOR documented in this encounter Plan of Treatment Not on filedocumented as of this encounter Visit Diagnoses Not on filedocumented in this encounter Additional Health Concerns Assessment Noted Time PHQ-9 Depression Total Score: 0 02/19/2016 7:19 AM CDT documented as of this encounter Care Teams School Director Relationship Specialty Start Date End Date Sarah Montgomery PA-C PCP - General Family Practice 10/21/11 [address] [place] [address] documented as of this encounter
--- OUTSIDE RECORDS SUMMARY | 2022-02-13 08:13 | XMS_ITS | Encounter Summary ---
:1985 Author Organization [place] Address [address] [place] [address]. [place] [address] Care Team Providers Name Role Phone Sarah Montgomery PA-C Primary Care Provider Reason for Visit Reason Comments Post Exam Encounter Details Date Type Department Care Team Description 08/20/2016 Office [facility] Nadiya Bautista follow-up (Primary Dx); Visit [facility] DO [place] Encounter for initial prescription of co ntraceptive pills; [address] Screening for malignant neop lasm of cervix 303 [facility], [address] [phone] [address] (Work) [phone] Social History Tobacco Use Types Packs/Day Years [...] Body Mass Index 25.1 07/07/2016 12:34 AM ASW SPECIALIST documented in this encounter Patient Instructions Patient InstructionsNadiya Bautista DO - 08/20/2016 2:00 PM CDT Start Oral Contraceptive today , use back-up method for [address] Nadiya Bautista DO Obstetrics and Gynecology [facility] [place] documented in this encounter Progress Notes Nadiya [...] her behalf by Lupe Lassiter, a trained medical program specialist. The creation of this document is based the provider's statements to the medical program specialist. Lupe Lassiter August 20, 2016 2:18 PM [...] in this document, created by the medical program specialist for me, accurately reflects the services I personally performed and the decisions made by me. I have reviewed and approved this document for accuracy prior to leaving the patient care area. 08/20/2016 2:[address] Nadiya Bautista DO INFORMATION TECHNOLOGY CONSULTANT [facility] documented in this encounter Miscellaneous Notes Addendum [...] Component Value Ref Test Analysis Performed At [facility] Range Method Time Signature PAP NIL COPATH Copath Report COPATH Patient Name: SHRUTI KIRKLAND MR#: [id number] Specimen #: [id number] Collected: 08/20/2016 Received: 08/21/2016 Reported: 08/22/2016 14:28 [...] Harden ( ASCP) [facility]: LMP: 10/12/15 Post-, Previous normal pap Date of Last Pap: 02/15/14, Papanicolaou Test Limitations: ??Cervical cytology is a scre ening test with limited sensitivity; regular screening is critical for cancer prevention; Pap tests are primarily effective for the diagnosis/prevention of squamous cell carcinoma, not adenoca rcinomas or other cancers. TESTING LAB LOCATION: [address] ??[address] COLLECTION SITE: Client: ??[facility] Location: RIOB (R) Specimen (Source) Anatomical [...] documented as of this encounter Care Teams New Vehicle Sales Consultant Relationship Specialty Start Date End Date Sarah Montgomery PA-C PCP - General Family Practice 10/21/11 [address] [place] [address] documented as of this encounter
--- OUTSIDE RECORDS SUMMARY | 2022-02-13 08:14 | XMS_ITS | Encounter Summary ---
:1985 Author Organization [place] Address [address] [place] [address] Care Team Providers Name Role Phone Sarah Montgomery PA-C Primary Care Provider [phone] Encounter Details Date Type Department Care Team Description 11/22/[address] [facility] [place] rine cramping; [facility] Missed menses [address] [place] [address] Social History Tobacco Use [...] (11/22/2015 8:20 AM CDT) [facility] Time Signature HCG Quantitative 11,668 IU/L [facility] Comment: Non- ?0 - 5 , weeks [...] Address City/State/ZIP Code Phon e Number M [facility] [address] [address] [facility] [address] [phone] documented in this encounter Visit Diagnoses Diagnosis Uterine cramping Missed menses Absence of menstruation documented in this encounter Additional Health Concerns Assessment Noted Time PHQ-9 Depression Total Score: 0 09/07/2015 7:16 AM CDT documented as of this encounter Care Teams Launch Engineer Relationship Specialty Start Date End Date Sarah Montgomery PA-C PCP - General Family Practice 10/21/11 [address] [place] [address] documented as of this encounter
--- OUTSIDE RECORDS SUMMARY | 2022-02-13 08:14 | XMS_ITS | Encounter Summary ---
:1985 Author Organization [place] Address [address] [place] [address] Care Team Providers Name Role Phone Sarah Montgomery PA-C Primary Care Provider [phone] Encounter Details Date Type Department Care Team Description 12/24/2015 Orders Only [facility] HSV (herpes simplex virus) [facility] infection [address] [place] [address] Social History Tobacco Use [...] 0.8 [facility] Virus Type 1 AI [facility]ENTER [facility] Comment: Positive. ??IgG antibody to HSV-1 detect ed. Antibody index (AI) values reflect qual itative changes in antibody concentration that cannot be directly a ssociated with clinical condition or disease state. Herpes Simplex <0.2 0.0 - 0.8 AI [facility] F ID Virus Type 2 IgG No HSV-2 IgG antibodies detected. [facility] Antibody index (AI) values reflect qualitative changes in a ntibody CAMPUS concentration that cannot be directly associated with clinical condition or disease state. Specimen Anatomical Collection Method Collection Time Receive d Time (Source) Location / / Volume Laterality Blood specimen 12/24/2015 9:28 AM 016 9:33 (specimen) CDT AM CDT Nadiya Bautista DO LAB - BLOOD ORDERABLES Performing Organization Address City/[facility]/ZIP Code Phon e Number [address] HSV IgM antibody (12/24/2015 9:28 AM CDT) athologist Signature Herpes Simplex 0.71 0.00 - [facility] Virus IgM 0.89 Index ID MEDICAL Antibody Value [facility] Comment: No detectable antibody. A negative test result does not rule ou t a primary or reactivated infection. Specimen Anatomical Collection Method Collection Time Receive d Time (Source) Location / / Volume Laterality Blood specimen 12/24/2015 9:28 AM 016 9:33 (specimen) CDT AM CDT Nadiya Bautista DO LAB - BLOOD ORDERABLES Performing Organization Address City/[facility] Code Phon e Number [address] documented in this encounter Visit Diagnoses Diagnosis HSV (herpes simplex virus) infection Herpes simplex without mention of compli cation documented in this encounter Additional Health Concerns Assessment Noted Time PHQ-9 Depression Total Score: 0 09/07/2015 7:16 AM CDT documented as of this encounter Care Teams Baggage Agent Supervisor Relationship Specialty Start Date End Date Ronaldo-Sarah Doshi PA-C PCP - General Family Practice 10/21/11 [address] [place] [address] documented as of this encounter
--- OUTSIDE RECORDS SUMMARY | 2022-02-13 08:14 | XMS_ITS | Encounter Summary ---
:1985 Author Organization [facility] Address [address] [place] [address] Care Team Providers Name Role Phone Sarah Montgomery PA-C Primary Care Provider [phone] Reason for Visit Reason Comments Insect Bites Encounter Details Date Type Department Care Team Description 11/21/2014 Office Visit [facility] Ryan Villalobos tis (Primary Clinic Gregory MD Aj Dx) [address] [place] [address] Social History Tobacco Use Types Packs/Day [...] 20 capsule; Refill: 0 Ryan Villalobos MD [facility] documented in this encounter Nursing Notes Faye [...] (66.271 kg). BP completed using cuff size: regular SMA Scarlett documented in this encounter Plan of Treatment Not on filedocumented as of this encounter Visit Diagnoses Diagnosis Folliculitis - Primary Other specified disease of hair and hair follicles documented in this encounter Care Teams Marketing Information Manager Relationship Specialty Start Date End Date Ronaldo-Sarah Doshi PA-C PCP - General Family Practice 10/21/11 [address] [place] [address] documented as of this encounter
--- OUTSIDE RECORDS SUMMARY | 2022-02-13 08:14 | XMS_ITS | Encounter Summary ---
:1985 Author Organization [facility] Address [address] [place] [address] Care Team Providers Name Role Phone Sarah Montgomery PA-C Primary Care Provider [phone] Reason for Visit Reason Comments Urinary Problem Encounter Details Date Type Department Care Team Description 03/03/2014 Office Visit [facility] Thelma Doshi Dysuria ( Primary Dx); [facility] [place] ARPAN Dunaway ELECTROPLATING TECHNICIAN Vaginal burning [address] [address] [place], [place] [phone] [address] Social History Tobacco Use Types Packs/Day [...] NEG Ketones Urine Negative NEG mg/dL Specific [place] Urine 1.010 1.003 - 1.035 Blood Urine [...] fevers, signs or symptoms. Thelma Doshi NP [facility] documented in this encounter Nursing Notes Sushil Ford, RECOVERY OPERATOR HELPER - 03/03/2014 3:26 PM CDT Chief Complaint [...] Results Wet prep (03/03/2014 3:44 PM CDT) [facility] Method Time Signature Specimen Vagina [facility] Wet Prep No Trichomonas seen [place] No clue cells seen [facility] No yeast seen [place] Micro Report FINAL [place] Status 03/03/2014 [facility] Specimen Anatomical Collection Method Collection Time Receive d Time (Source) Location / / Volume Laterality 03/03/2014 3:44 PM 4 3:49 CDT PM CDT Thelma Doshi APRN ELECTROPLATING TECHNICIAN LAB - MICRO GENERAL ORDERAB LES Performing Organization Address City/State/ZIP Code Phon e Number [facility] [address] [place], [place] [id number] *UA reflex to Microscopic and Culture (03/03/2014 3:22 PM CDT) Patholo gist Method Time Signature Color Urine Yellow [facility] Appearance Urine Clear [facility] Glucose Urine Negative NEG mg/dL [facility] Bilirubin Urine Negative NEG [facility] Ketones Urine Negative NEG mg/dL [facility] Specific [place] 1.010 1.003 - [place] Urine 1.035 [facility] Blood Urine Negative NEG [facility] pH Urine 7.0 5.0 - 7.0 [place] pH [facility] Protein Albumin Negative NEG mg/dL [place] Urine [facility] Urobilinogen 0.2 0.2 - 1.0 [place] Urine EU/dL [facility] Nitrite Urine Negative NEG [facility] Leukocyte Negative NEG [place] Esterase Urine [facility] Source Midstream [place] Urine [facility] Specimen Anatomical Collection Method Collection Time Receive d Time (Source) Location / / Volume Laterality Urine specimen 03/03/2014 3:22 PM 014 3:27 (specimen) CDT PM CDT Thelma Doshi APRN, CNP LAB - URINE ORDERABLES Performing Organization Address City/State/ZIP Code Phon e Number [facility] [address] [place] [address] documented in this encounter Visit Diagnoses Diagnosis Dysuria - Primary Vaginal burning Other specified symptom associated with female genital organs documented in this encounter Care Teams Medical Claims Analyst Relationship Specialty Start Date End Date Ronaldo-Sarah Doshi PA-C PCP - General Family Practice 10/21/11 [address] [place] [address] documented as of this encounter
--- OUTSIDE RECORDS SUMMARY | 2022-02-13 08:14 | XMS_ITS | Encounter Summary ---
:1985 Author Organization [facility] [place] Address [address] [place] [address] Care Team Providers Name Role Phone Saarh Montgomery PA-C Primary Care Provider Reason for Visit Reason Onset Date Comments Nurse Advice Line 11/17/2015 Encounter Details Date Type Department Care Team Description 11/17/2015 Telephone [facility] Valentina, Nurse Advice Line [facility] Sarah Aguilar PA-C () [id number] [place] [address] [place] [address] [phone] Social History Tobacco Use Types Packs/Day Years [...] documented as of this encounter Care Teams Cushion Installer Relationship Specialty Start Date End Date Sarah Montgomery PA-C PCP - General Family Practice 10/21/11 [address] [place] [address] documented as of this encounter
--- OUTSIDE RECORDS SUMMARY | 2022-02-13 08:14 | XMS_ITS | Encounter Summary ---
:1985 Author Organization [facility] Address [address] [place] [address] Care Team Providers Name Role Phone aSrah Montgomery PA-C Primary Care Provider [phone] Reason for Visit Reason Onset Date Comments Refill Request 09/11/2014 Encounter Details Date Type Department Care Team Description 09/11/2014 Refill [facility] Sarah Montgomery Refill Request Reshma Aguilar PA-C [address] [place] [address] [place] [address] [phone] (Wo rk) Social History Tobacco Use Types [...] Peña - 09/11/2014 1:08 PM CDT Ph. [phone] valACYclovir (VALTREX) 1000 mg tablet 60 tablet 0 12/13/2012 -- Sig: Take 1 tablet by mouth 2 times daily. Class: E-Prescribe Route: Oral OV 03/01/2014 Rachell Peña Corner Trimmer Operator documented in this encounter Plan of Treatment Not on filedocumented as of this encounter Visit Diagnoses Diagnosis Genital herpes - Primary documented in this encounter Care Teams Acid Purifier Relationship Specialty Start Date End Date Sarah Montgomery PA-C PCP - General Family Practice 10/21/11 [address] [place] [address] documented as of this encounter
--- OUTSIDE RECORDS SUMMARY | 2022-02-13 08:14 | XMS_ITS | Encounter Summary ---
:1985 Author Organization [facility] Address [address] [place] [address] Care Team Providers Name Role Phone Sarah Montgomery PA-C Primary Care Provider [phone] Reason for Visit Reason Onset Date Comments Nurse Advice Line 10/19/2014 Encounter Details Date Type Department Care Team Description 10/19/2014 Telephone [facility] Valentina, Nurse Advice Line [place] Sarah Aguilar PA-C [address] [place] [phone] [place] [address] (Wo rk) Social History Tobacco [...] new vitamin D. Pt is to take 02376 units weekly for 8 wks, then 2000 [...] on filedocumented in this encounter Care Teams School Childcare Attendant Relationship Specialty Start Date End Date Sarah Montgomery PA-C PCP - General Family Practice 10/21/11 [address] [place] [address] documented as of this encounter
--- OUTSIDE RECORDS SUMMARY | 2022-02-13 08:14 | XMS_ITS | Encounter Summary ---
:1985 Author Organization [facility] Address [address] [place] [address] Care Team Providers Name Role Phone Sarah Montgomery PA-C Primary Care Provider Reason for Visit Reason Comments Tachycardia Encounter Details Date Type Department Care Team Description 05/24/2015 Emergency [facility] [place] LaguerreCristofer noriega y [place], Palpitations Emergency Dept [address] [place] [address] [facility] [phone] [place], [place] [address] (Wo rk) Social History [...] Comments Blood Pressure 120/86 05/24/2015 6:56 PM DUMPER BAILER OPERATOR Pulse 96 05/24/2015 3:20 PM DUMPER BAILER OPERATOR Temperature 36.7 ??C (98 ??F) 05/24/2015 3:20 PM DUMPER BAILER OPERATOR Respiratory Rate 16 05/24/2015 7:02 PM DUMPER BAILER OPERATOR Oxygen Saturation 99% 05/24/2015 6:56 PM DUMPER BAILER OPERATOR Inhaled Oxygen Concentration - - Weight 65.8 kg (145 lb) 05/24/2015 3:20 PM DUMPER BAILER OPERATOR Height - - Body Mass Index 23.4 11/16/2014 8:39 AM CDT documented in this encounter Discharge Instructions Discharge InstructionsGary Laguerre MD - 05/24/2015 6:51 PM DUMPER BAILER OPERATOR Images from the original note were not included. Please make an appointment to follow up with your accreditation coordinator following your Holter placement and return to [...] rhythm) ?? Disease of the heart valves Llm-Wkjfx-Sdqvofj Causes: ?? Certain medicines (such as asthma [...] Tell your doctor about any prescription or nhrs-una-lzsbbjf or herbal medicines you take. Follow Up [...] ?? Difficulty with speech or vision ?? [phone] [employer]. [address] [place] [address], [place] [address]. All rights reserved. This information is not intended as a substitute for professional medical care. Always follow your healthcare professional's instructions. ER BAILER OPERATOR documented in this encounter ED Notes Cindy Garcia RN - 05/24/2015 6:31 PM CST Pt returned from xray. Continues to be symptom free. ER BAILER OPERATOR Gary Laguerre MD - 05/24/2015 5:19 PM CST History Chief Complaint: Palpitations HPI Rhonda Tamayo is a 29 year old female who presents to the emergency department today with palpitations. The patient reports that while she was driving around [phone] she had acute onset of palpitations, feeling [...] No pertinent surgical history. Family History: Father: [place] at 42, Depression Social History: Presents with: [...] noted at 1533. Ventricular rate: 91 bpm WA interval: 134 ms QRS duration: 78 ms QT/QTc: 334/410 ms R-Girdler: 64 ECG read at [address] [...] documented above. The patient was placed on equipment monitor phototypesetting and continuous pulse oximetry. An EKG was [...] observations and the provider's statements to me. [facility] EMERGENCY DEPARTMENT Gary Laguerre MD 05/25/15 9572 ER BAILER OPERATOR Rosalia Cordova, KELLIE - 05/24/2015 3:23 PM CST Pt here with c/o fast heart rate that last 2-3 min long associated with dizziness afterwards. Pt feels exhausted now. Pt has been battling cold symptoms since Thursday. ER BAILER OPERATOR documented in this encounter Plan of Treatment Not on filedocumented as of this encounter Procedures Procedure Name Priority Date/Time Associated Comments Diagnosis XR CHEST 2 VIEWS STAT 05/24/2015 6:26 PM Resul ts for this DUMPER BAILER OPERATOR procedure are i n the results section. HCG QUALITATIVE URINE STAT 05/24/2015 5:57 PM Results for this DUMPER BAILER OPERATOR procedure are i n the results section. CBC WITH PLATELETS & STAT 05/24/2015 5:57 PM R esults for this DIFFERENTIAL DUMPER BAILER OPERATOR procedure are i n the results section. TSH WITH FREE T4 STAT 05/24/2015 5:57 PM Resul ts for this REFLEX DUMPER BAILER OPERATOR procedure are i n the results section. BASIC METABOLIC PANEL STAT 05/24/2015 5:57 PM Results for this DUMPER BAILER OPERATOR procedure are i n the results section. EKG 12-LEAD, TRACING STAT 05/24/2015 3:29 PM R esults for this ONLY DUMPER BAILER OPERATOR procedure are i n the results section. documented in this encounter Results XR Chest 2 Views (05/24/2015 6:26 PM DUMPER BAILER OPERATOR) Anatomical Region Laterality Modality Chest Computed Radiography Specimen (Source) Anatomical Location Collection Method / Collectio n Time Received Time / Laterality Volume Impressions 05/24/2015 7:10 PM DUMPER BAILER OPERATOR IMPRESSION: Negative chest. BRAULIO CANO MD Narrative 05/24/2015 7:10 PM DUMPER BAILER OPERATOR CHEST TWO VIEW 05/24/2015 6:26 PM HISTORY: [...] with free T4 reflex (05/24/2015 5:57 PM DUMPER BAILER OPERATOR) athologist Signature TSH 1.78 0.40 - 4.00 [facility] Specimen Anatomical Collection Method Collection Time Receive d Time (Source) Location / / Volume Laterality Blood specimen 05/24/2015 5:57 PM 015 6:05 (specimen) DUMPER BAILER OPERATOR PM DUMPER BAILER OPERATOR Gary Laguerre MD LAB - BLOOD ORDERABLES Performing Organization Address City/[facility]/ZIP [employer] [facility] e [facility] [address] [place], [place] [address] [address] [address] [address] [place], [place] [address], [place] [phone] HCG qualitative urine (05/24/2015 5:57 PM DUMPER BAILER OPERATOR) athologist Signature HCG Qual Urine Negative NEG [facility] Specimen Anatomical Collection Method Collection Time Receive d Time (Source) Location / / Volume Laterality Urine specimen URINE SPECIMEN 05/24/2015 5:57 PM 05/24 6:05 (specimen) OBTAINED BY CLEAN DUMPER BAILER OPERATOR PM DUMPER BAILER OPERATOR CATCH PROCEDURE / Unknown Gary Laguerre MD LAB - URINE ORDERABLES Performing Organization Address [facility] e [facility] [address] [place], [place] [address] [facility] [address] [place], [place] [address], [place] [phone] Basic metabolic panel (05/24/2015 5:57 PM DUMPER BAILER OPERATOR) [facility] gist Method Time Signature Sodium 139 133 - 144 [place] mmol/L [facility] Potassium 3.7 3.4 - 5.3 [place] mmol/L [facility] Chloride 105 94 - 109 [place] mmol/L [facility] Carbon Dioxide 27 20 - 32 [place] mmol/L [facility] Anion Gap 7 3 - 14 [place] mmol/L [facility] Glucose 88 70 - 99 [place] mg/dL [facility] Urea Nitrogen 8 7 - 30 [place] mg/dL [facility] Creatinine 0.72 0.52 - [place] 1.04 [facility] mg/dL HOSPITAL GFR Estimate >90 >60 [place] Non GFR Calc mL/min/1. [facility] 7m2 HOSPITAL GFR Estimate >90 >60 [place] If Black GFR Calc mL/min/1. [facility] 7m2 HOSPITAL Calcium 8.7 8.5 - [place] 10.1 [facility] mg/dL HOSPITAL Specimen Anatomical Collection Method Collection Time Receive d Time (Source) Location / / Volume Laterality Blood specimen 05/24/2015 5:57 PM 015 6:05 (specimen) DUMPER BAILER OPERATOR PM DUMPER BAILER OPERATOR Gary Laguerre MD LAB - BLOOD ORDERABLES Performing Organization Address City/State/ZIP Code Phon e Number [place] [address] [address] [place], [place] [address] [facility] [address] [phone] CBC with platelets differential (05/24/2015 5:57 PM DUMPER BAILER OPERATOR) [facility] gist Method Time Signature WBC 6.9 4.0 - [place] 11.0 [facility] 10e9/L [facility] RBC Count 4.72 3.8 - 5.2 [place] 10e12/L [facility] Hemoglobin 14.8 11.7 - [place] 15.7 g/dL [facility] Hematocrit 42.8 35.0 - [place] 47.0 % [facility] MCV 91 78 - 100 [facility] MCH 31.4 26.5 - [place] 33.0 pg [facility] MCHC 34.6 31.5 - [place] 36.5 g/dL [facility] RDW 12.4 10.0 - [place] 15.0 % [facility] Platelet Count 360 150 - 450 [place] 10e9/L [facility] Diff Method Automated [facility] % Neutrophils 60.1 % [facility] % Lymphocytes 30.5 % [facility] % Monocytes 6.1 % [facility] % Eosinophils 2.5 % [facility] % Basophils 0.7 % [facility] % Immature 0.1 % [place] Granulocytes [facility] Absolute 4.1 1.6 - 8.3 [place] Neutrophil 10e9/L [facility] Absolute 2.1 0.8 - 5.3 [facility] Lymphocytes 10e9/L [facility]PITAL Absolute 0.4 0.0 - 1.3 [facility] Monocytes 10e9/L [facility]OSPITAL Absolute 0.2 0.0 - 0.7 [facility] Eosinophils 10e9/L [facility]OSPITAL Absolute 0.1 0.0 - 0.2 [place] Basophils 10e9/L [facility] Abs Immature 0.0 0 - 0.4 [place] Granulocytes 10e9/[facility] Specimen Anatomical Collection Method Collection Time Receive d Time (Source) Location / / Volume Laterality Blood specimen 05/24/2015 5:57 PM 015 6:05 (specimen) DUMPER BAILER OPERATOR PM DUMPER BAILER OPERATOR Gary Laguerre MD LAB - BLOOD ORDERABLES Performing Organization Address City/State/ZIP [facility] Phon e Number [place] [address] [address] [address] [facility] [address] [phone] EKG 12 lead (05/24/2015 3:29 PM DUMPER BAILER OPERATOR) [facility] gist Method Time Signature Interpretation ECG Click View RADIOLOGY Image link RESULTS to view waveform and result Specimen (Source) Anatomical Collection Method Collection Time Re ceived Time Location / / Volume Laterality 05/24/2015 3:29 PM DUMPER BAILER OPERATOR Yvette Cortes MD ECG ORDERABLES Performing Organization Address City/State/ZIP [facility] Phon e Number RADIOLOGY RESULTS documented in this encounter Visit Diagnoses Diagnosis Palpitations documented in this encounter Active and Recently Administered Medications Care Teams Medical Advisor Relationship Specialty Start Date End Date Sarah Montgomery PA-C PCP - General Family Practice 10/21/11 [address] [place] [address] documented as of this encounter
--- OUTSIDE RECORDS SUMMARY | 2022-02-13 08:14 | XMS_ITS | Encounter Summary ---
:1987 Author Organization [place] Address [address] [place] [address] Care Team Providers Name Role Phone Sarah Montgomery PA-C Primary Care Provider [phone] Encounter Details Date Type Department Care Team Description 12/20/[address] [facility] Nadiya [facility] [address] [place], [place] [id number] Social History Tobacco Use Types Packs/Day [...] Narrative 12/21/2015 3:43 PM CDT Order #: [id number] Study Notes? Karley Damico on 12/20/2015 10:51 AM ?? [facility] Obstetrics & Gynecology [address] [place] [address] ULTRASOUND - EARLY OB (0-11 WEEKS) Referring Provider: Nadiya Bautista Clinic: [facility] INDICATIONS FOR ULTRASOUND: OB History: [...] documented as of this encounter Care Teams Blackjack Dealer Relationship Specialty Start Date End Date Sarah Montgomery PA-C PCP - General Family Practice 10/21/11 [address] [place] [address] documented as of this encounter
--- OUTSIDE RECORDS SUMMARY | 2022-02-13 08:14 | XMS_ITS | Encounter Summary ---
:1985 Author Organization [facility] Address [address] [place] [address]. [place] [address] Care Team Providers Name Role Phone Sarah Montgomery PA-C Primary Care Provider [phone] Reason for Visit Reason Comments Complications cramping, 6 weeks Encounter Details Date Type Department Care Team Description 11/20/2015 Office Visit [facility] Derick Robles Uterine c ramping (Primary Dx); Clinic Donald Sprague MD Missed menses; [place] [address] [facility] Slow transit [facility] [address] [place] [address] Social History Tobacco Use [...] LMP approx 10/12/15. 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 like correctional program officer period cramping, does also have some issues [...] logist Time Signature HCG Quantitative 11,668 IU/L [facility] Comment: Non- ?0 - 5 [...] e Number M [facility] [address] [place], [place] [address] [facility] [address] [place], [place] [address] [facility] [phone] HCG quantitative (11/20/2015 9:05 AM CDT) P athologist Signature HCG Quantitative 8,682 IU/L [facility] Comment: Non- ?0 - 5 , [...] LAB - BLOOD ORDERABLES Performing Organization Address City/[facility]/ZIP [facility] Phon e Number M [facility] [address] [phone] [facility] [address] [address], [facility] [phone] *UA reflex to Microscopic (11/20/2015 8:52 AM CDT) Patholo gist Method Time Signature Color Urine Yellow [facility] Appearance Urine Clear [facility] Glucose Urine Negative NEG mg/dL [facility] Bilirubin Urine Negative NEG [facility] Ketones Urine Negative NEG mg/dL [facility] Specific [place] <=1.005 1.003 - [place] Urine 1.035 [facility] Blood Urine Negative NEG [facility] pH Urine 5.0 5.0 - 7.0 [place] pH [facility] Protein Albumin Negative NEG mg/dL [place] Urine [facility] Urobilinogen 0.2 0.2 - 1.0 [place] Urine EU/dL [facility] Nitrite Urine Negative NEG [facility] Leukocyte Negative NEG [place] Esterase Urine [facility] Source Midstream [place] Urine [facility] Specimen Anatomical Collection Method Collection Time Receive d Time (Source) Location / / Volume Laterality Urine specimen 11/20/2015 8:52 AM 016 8:58 (specimen) CDT AM CDT Derick Robles MD LAB - URINE ORDERABLES Performing Organization Address City/[facility]/ZIP Code Phon e Number [address] [address] (ABNORMAL) Beta HCG qual IFA urine (11/20/2015 8:52 AM CDT) [facility] gist Method Time Signature Beta HCG Qual Positive (A) NEG [place] IFA Urine [facility] Specimen Anatomical Collection Method Collection Time Receive d Time (Source) Location / / Volume Laterality Urine specimen 11/20/2015 8:52 AM 016 8:58 (specimen) CDT AM CDT Derick Robles MD LAB - URINE ORDERABLES Performing Organization Address City/[facility] Phon e Number [address] [address] documented in this encounter Visit Diagnoses Diagnosis Uterine cramping - Primary Missed menses Absence of menstruation Slow transit constipation documented in this encounter Additional Health Concerns Assessment Noted Time PHQ-9 Depression Total Score: 0 09/07/2015 7:16 AM CDT documented as of this encounter Care Teams Survey Engineer Relationship Specialty Start Date End Date Ronaldo-Sarah Doshi PA-C PCP - General Family Practice 10/21/11 [address] [place] [address] documented as of this encounter
--- OUTSIDE RECORDS SUMMARY | 2022-02-13 08:14 | XMS_ITS | Encounter Summary ---
:1987 Author Organization [place] Address [address] [place] [address] Care Team Providers Name Role Phone Sarah Montgomery PA-C Primary Care Provider [phone] Encounter Details Date Type Department Care Team Description 10/06/2014 Orders Only [facility] Poonam Rosales Vitamin D deficiency Clinic [place] CATERPILLAR TRACTOR OPERATOR (Primary Dx) [address] [place] [id number] [phone] Social History Tobacco Use Types Packs/Day Years [...] deficiency documented in this encounter Care Teams Cdl Dedicated Truck Driver Relationship Specialty Start Date End Date Sarah Montgomery PA-C PCP - General Family Practice 10/21/11 [address] [place] [address] documented as of this encounter
--- OUTSIDE RECORDS SUMMARY | 2022-02-13 08:14 | XMS_ITS | Encounter Summary ---
:1985 Author Organization [place] Address [facility] [place] [address] Care Team Providers Name Role Phone Sarah Montgomery PA-C Primary Care Provider [phone] Reason for Visit Reason Comments Care Encounter Details Date Type Department Care Team Description 01/14/2016 Office [facility] Nadiya Bautista care in Visit Clinic [facility] first trimester [id number] [place] [address] (Primary Dx) [facility] [address] [facility] [phone] [place] [address] Social History Tobacco Use Types Packs/Day [...] 3 times daily Walter ammy, walter snaps, wlater tea. Snack by bedside (cracker, bread) before [...] Single, lives with boyfriend. 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 Nadiya Bautista DO PVC MONITOR [facility] documented in this encounter Nursing Notes [...] Laterality Volume Narrative 02/19/2016 10:33 AM CDT [facility] Obstetrics & Gynecology [address] [place] [address] ULTRASOUND - COMPLETE OB (18+) Referring Provider: Nadiya Bautista Clinic: [facility] INDICATIONS FOR ULTRASOUND: OB History: Present Conditions: [...] Component Value Ref Test Analysis Performed At [facility] Range Method Time Signature Specimen Cervix [facility] N Gonorrhea Negative NEG UN[facility]ITY OF PCR Negative for N. gonorrhoeae rRNA by transcripti on mediated amplification. [place] [facility] A negative result by transc ription [...] MICRO GENERAL ORDERABL ES Performing Organization Address City/[facility]/ZIP Code Phon e Number [address] [address] Chlamydia trachomatis PCR (01/14/2016 10:28 AM CDT) Component Value Ref Test Analysis Performed At [facility] Method Time Signature Specimen Cervix [facility] Chlamydia Negative NEG UNIVERSITY Trachomatis Negative for C. trachomatis rRNA by grader marker mediated amplification. [facility] PCR A negative result by transc ription [...] MICRO GENERAL ORDERABL ES Performing Organization Address City/[facility]/ZIP Code Phon e Number [address] [address] documented in this encounter Visit Diagnoses Diagnosis care in first trimester - Prima ry care in first trimester documented in this encounter Additional Health Concerns Assessment Noted Time PHQ-9 Depression Total Score: 0 09/07/2015 7:16 AM CDT documented as of this encounter Care Teams Biodiesel Process Control Technician Relationship Specialty Start Date End Date Sarah Montgomery PA-C PCP - General Family Practice 10/21/11 [address] [place] [address] documented as of this encounter
--- OUTSIDE RECORDS SUMMARY | 2022-02-13 08:14 | XMS_ITS | Encounter Summary ---
:1985 Author Organization [place] Address [address] [place] [address]. [place] [address] Care Team Providers Name Role Phone Sarah Montgomery PA-C Primary Care Provider [phone] Reason for Visit Reason Onset Date Comments Symptoms 11/22/2013 Encounter Details Date Type Department Care Team Description 11/22/2013 Telephone Adult Call Center Unknown, Provider Symptoms [address] [phone] Social History Tobacco Use Types Packs/Day [...] on filedocumented in this encounter Care Teams Utilization Review Specialist Relationship Specialty Start Date End Date Sarah Montgomery PA-C PCP - General Family Practice 10/21/11 [address] [place] [address] documented as of this encounter
--- OUTSIDE RECORDS SUMMARY | 2022-02-13 08:14 | XMS_ITS | Encounter Summary ---
:1985 Author Organization [place] Address [address] [place] [address] Care Team Providers Name Role Phone Sarah Montgomery PA-C Primary Care Provider [phone] Reason for Visit (Routine) - Closed Specialty Diagnoses / Procedures Referred By Contact Refer red To Contact Radiology / Radiology. Diagnoses epic, sb pt, MRI safe Rh Mri Procedures MR BRAIN WWO [address] [place] [address] Phone: Fax: Referral ID Status Reason Start Date Expiration Date Visits Requ ested Visits Authorized [id number] Closed 10/05/2014 10/05/2015 1 1 Encounter Details Date Type Department Care Team Description 10/11/2014 Hospital Encounter [facility] Poonam Rosales; [facility] ARPAN [place] CONVEYOR TENDER [employer] Headache(784.0) [address] [facility] [address] [facility] [address] [place], [place] [phone] [address] Social History Tobacco Use Types Packs/Day [...] Take 1 capsule 8 capsule 0 10/0611/25/2014 [address] UNIT (50,000 Units) by capsuleIndications: mouth every 7 days Vitamin D deficiency for 8 doses Cholecalciferol (VITAMIN Take 2,000 Units 100 tablet 3 10/0605/24/2015 D) 2000 UNITS by mouth daily tabletIndications: Vitamin D deficiency montelukast (SINGULAIR) 10 Take 1 tablet (10 90 tablet 3 05/24/2015 MG tabletIndications: mg) by mouth At Allergic rhinitis, Bedtime Seasonal allergic rhinitis, Ear itching qoixsrcx-fjceslnip-eciykln Place 4 drops into 10 mL 0 0 10/05/2014 11/16/2014 rtisone (CORTISPORIN) both ears 4 times 3.5-15512-4 otic daily suspensionIndications: Eczema of both external [...] identified. ANTELMO DAVIES MD Poonam Rosales APRN [employer] IMG MRI ORDERABLES documented in this encounter Visit Diagnoses Diagnosis Dizziness Dizziness and giddiness Headache(784.0) Headache documented in this encounter Care Teams Patient Support Representative Relationship Specialty Start Date End Date Sarah Montgomery PA-C PCP - General Family Practice 10/21/11 [address] [place] [address] documented as of this encounter
--- OUTSIDE RECORDS SUMMARY | 2022-02-13 08:14 | XMS_ITS | Encounter Summary ---
:1985 Author Organization [place] Address [address] [place] [address] Care Team Providers Name Role Phone Sarah Montgomery PA-C Primary Care Provider [phone] Reason for Visit Reason Onset Date Comments Medication Question 12/18/2015 herpes in early preg adalberto Encounter Details Date Type Department Care Team Description [facility] [place] (herpes in early [address] ) [place] [id number] Social History Tobacco Use Types Packs/Day Years [...] Dr. Nadiya Bautista DO Obstetrics and Gynecology [facility] [place] [facility] [place] Telephone Encounter - Christine Colunga RN - [...] UNIVERSITY OF Virus Type 1 AI [place] [facility] Comment: Positive. ??IgG antibody to HSV-1 detect ed. Antibody index (AI) values reflect qual itative changes in antibody concentration that cannot be directly a ssociated with clinical condition or disease state. Herpes Simplex <0.2 0.0 - 0.8 AI [place] [facility] Virus Type 2 IgG No HSV-2 IgG antibodies detected. [facility] Antibody index (AI) values reflect qualitative changes in a [facility] concentration that cannot be directly associated with clinical condition or disease state. Specimen Anatomical Collection Method Collection Time Receive d Time (Source) Location / / Volume Laterality Blood specimen 12/24/2015 9:28 AM 016 9:33 (specimen) CDT AM CDT Nadiya Delucas DO LAB - BLOOD ORDERABLES Performing Organization Address City/[facility]/ZIP Code Phon e Number [facility] [address] [place] [address] [facility] HSV IgM antibody (12/24/2015 9:28 AM CDT) P athologist Signature Herpes Simplex 0.71 0.00 - [facility] OF Virus IgM 0.89 Index [place] MEDICAL Antibody Value [facility] Comment: No detectable antibody. A negative test result does not rule ou t a primary or reactivated infection. Specimen Anatomical Collection Method Collection Time Receive d Time (Source) Location / / Volume Laterality Blood specimen 12/24/2015 9:28 AM 016 9:33 (specimen) CDT AM CDT Nadiya Bautista DO LAB - BLOOD ORDERABLES Performing Organization Address City/[facility]/ZIP Code Phon e Number [facility] [address] [place] [address] [facility] documented in this encounter Visit Diagnoses Diagnosis HSV (herpes simplex virus) infection - P rimary Herpes simplex without mention of compli cation documented in this encounter Additional Health Concerns Assessment Noted Time PHQ-9 Depression Total Score: 0 09/07/2015 7:16 AM CDT documented as of this encounter Care Teams School Janitor Relationship Specialty Start Date End Date Ronaldo-Sarah Doshi PA-C PCP - General Family Practice 10/21/11 [address] [place] [address] documented as of this encounter
--- OUTSIDE RECORDS SUMMARY | 2022-02-13 08:14 | XMS_ITS | Encounter Summary ---
:1985 Author Organization [place] Address [address] [place] [address] Care Team Providers Name Role Phone Sarah Montgomery PA-C Primary Care Provider Reason for Visit Reason Comments Constipation Encounter Details Date Type Department Care Team Description 09/20/2015 Office Visit [facility] Karolina Carl al hemorrhoids Clinic Reshma Frankel MD (Primary Dx) [address] [facility] [address] [place] [address]44 [phone] Social History Tobacco Use Types Packs/Day Years [...] leatha. These are available at most drugstores. Fosr-ucw-tuhyxox hemorrhoid ointments and petroleum jelly can also [...] plenty of water when you exercise. ?? 2084-2057 [employer]. [address] [place] [address]. All rights reserved. This information is not [...] Age of Onset ??? Heart Disease Father [place] at age 42 ??? Depression Father ??? [...] needed for ongoing issues Karolina Carl MD [facility] documented in this encounter Nursing [...] documented as of this encounter Care Teams Compensation Consultant Relationship Specialty Start Date End Date Sarah Montgmoery PA-C PCP - General Family Practice 10/21/11 [address] [place] [address] documented as of this encounter
--- OUTSIDE RECORDS SUMMARY | 2022-02-13 08:14 | XMS_ITS | Encounter Summary ---
:1985 Author Organization [place] Address [address] [facility] [place] [address] Care Team Providers Name Role Phone Leland Montgomery PA-C Primary Care Provider [phone] Reason for Visit Reason Comments Physical pap, not fasting Encounter Details Date Type Department Care Team Description 12/13/2012 Office Visit [facility] Fede Montgomery general medical examination at a health care facility (Primary Dx); Clinic [place] Leland Aguilar PA-C Genital herpes; [address] [address] [facility] Papanicolaou smear of vagina with atypic al squamous cells of undetermined significance (ASC-US); [place], [place] Lipid screeni ng; [phone] Screening for diabetes mellitus; [phone] Screening for u nspecified disorder of blood and blood-forming organs; (Work) Need for Tdap vaccination; [phone] Heart palpitati ons (Fax) Social History Tobacco [...] - 5.0 mU/L Thank you for choosing [facility]. We appreciate the opportunity to serve you [...] for this basename: CHOL:2,HDL:2,LDL:2,TRI,CHOLHDLRATIO:2 in the last 14257 hours Reviewed orders with patient. Reviewed health maintenance and updated orders accordingly - Yes History of abnormal Pap smear: YES - updated in Problem List and Health Maintenance accordingly All Histories reviewed and updated in [facility]. ROS: C: NEGATIVE for fever, chills, [...] list, Allergies, and Medical/Social/Surgical histories reviewed in [facility] andupdated as appropriate. Labs reviewed in [facility] OBJECTIVE: BP 109/78 Pulse 80 Temp 98.2 [...] 9.6 oz(64.229 kg). Leland Montgomery PA-C, [facility] Patient Instructions Preventive Health Recommendations Female [...] completed using cuff size: regular Renee Gold [facility] Health maintenance Pt. Advised tetanus shot is due Renee Gold DIRECTOR COUNCIL [employer] documented in this encounter Plan of Treatment [...] athologist Signature TSH 2.20 0.4 - 5.0 [facility] mU/L CLINIC LAB Specimen Anatomical Collection Method Collection Time Receive d Time (Source) Location / / Volume Laterality Blood specimen 12/13/2012 10:42 3 (specimen) AM CDT 10:44 AM CDT Leland Montgomery PA-C LAB - BLOOD ORDERABLES Performing Organization Address City/State/ZIP Code Phon e Number [facility] [address] [place] [address] [facility] [address] [place], [place] [id number] Lipid panel reflex to direct LDL (12/13/2012 10:42 AM CDT) athologist Signature Cholesterol 182 0 - 200 [facility] mg/dL CLINIC LAB Comment: LDL Cholesterol is the primary guide to therapy. The NCEP recommends further evaluation of: patients with cholesterol greater than 200 mg/dL if additional risk facto rs are present, cholesterol greater than 240 mg/dL, triglycerides greater than 1 50 mg/dL, or HDL less than 40 mg/dL. Triglycerides 42 0 - 150 mg/dL [facility] LAB HDL Cholesterol 87 50 - 110 mg/dL [facility] LDL Cholesterol Calculated 86 0 - 129 mg/dL [facility] Comment: LDL Cholesterol is the primary guide to therapy: LDL-cholesterol goal in high risk patients is <100 mg/dL and in very high risk patients is <70 mg/dL. VLDL-Cholesterol 8 0 - 30 mg/dL [facility] Cholesterol/HDL Ratio 2.1 0.0 - 5.0 [facility] Specimen Anatomical Collection Method Collection Time Receive d Time (Source) Location / / Volume Laterality Blood specimen 12/13/2012 10:42 3 (specimen) AM CDT 10:44 AM CDT Leland Montgomery PA-C LAB - BLOOD ORDERABLES Performing Organization Address City/State/ZIP Code Phon e Number [facility] [place] [address] [place] [address] [facility] [address] [place] [address] Comprehensive metabolic panel (12/13/2012 10:42 AM CDT) athologist Signature Sodium 139 133 - 144 [place] mmol/L CLINIC LAB Potassium 4.5 3.4 - 5.3 [facility] [place] mmol/L CLINIC LAB Chloride 103 94 - 109 [facility] [place] mmol/L CLINIC LAB Carbon Dioxide 26 20 - 32 [facility] [place] mmol/L CLINIC LAB Anion Gap 10 6 - 17 [facility] mmol/L CLINIC LAB Glucose 85 60 - 99 [place] mg/dL CLINIC LAB Urea Nitrogen 10 5 - 24 [facility] mg/dL CLINIC LAB Creatinine 0.77 0.52 - [facility] 1.04 mg/dL CLINIC LAB GFR Estimate >90 >60 [facility] mL/min/1.7 CLINIC LAB m2 GFR Estimate If >90 >60 [facility] [place] Black mL/min/1.7 CLINIC LAB m2 Calcium 9.1 8.5 - 10.4 [facility] [place] mg/dL CLINIC LAB Bilirubin Total 1.0 0.2 - 1.3 [facility] mg/dL [facility] LAB Albumin 4.5 3.9 - 5.1 [place] g/dL CLINIC LAB Comment: Reference range changed on 01/24. Protein Total 7.9 6.8 - 8.8 g/dL [place] [facility] Comment: As of 07, reference range reflects plasma specimen type. Alkaline Phosphatase 55 40 - 150 U/L [facility] [place] CLINIC LAB ALT 28 0 - 50 U/L [facility] LAB AST 32 0 - 45 U/L [facility] CLIN IC LAB Specimen Anatomical Collection Method Collection Time Receive d Time (Source) Location / / Volume Laterality Blood specimen 12/13/2012 10:42 3 (specimen) AM CDT 10:44 AM CDT Leland Montgomery PA-C LAB - BLOOD ORDERABLES Performing Organization Address City/State/ZIP Code Phon e Number [facility] [address] [place] [address] [facility] [address] [place] [address] CBC with platelets (12/13/2012 10:42 AM CDT) P athologist Signature WBC 4.6 4.0 - 11.0 [place] 10e9/L [facility] RBC Count 4.51 3.8 - 5.2 [place] 10e12/L [facility] Hemoglobin 14.4 11.7 - [place] 15.7 g/dL [facility] Hematocrit 41.4 35.0 - [place] 47.0 % [facility] MCV 92 78 - 100 [facility] LAB MCH 31.9 26.5 - [facility] 33.0 pg [facility] MCHC 34.8 31.5 - [facility] 36.5 g/dL [facility] RDW 11.9 10.0 - [place] 15.0 % [facility] Platelet Count 290 150 - 450 [place] 10e9/L [facility] Specimen Anatomical Collection Method Collection Time Receive d Time (Source) Location / / Volume Laterality Blood specimen 12/13/2012 10:42 3 (specimen) AM CDT 10:44 AM CDT Leland Montgomery PA-C LAB - BLOOD ORDERABLES Performing Organization Address City/State/ZIP Code Phon e Number [facility] [address] [place] [address] [facility] [address] [place], [place] [address] EKG 12-lead complete w/read - Clinics (12/13/2012 10:32 AM CDT) Narrative This result has an attachment that is no t available. Leland Montgomery PA-C ECG ORDERABLES HPV screen with reflex to genotype (12/13/2012 12:00 AM CDT) Component Value Ref Test Analysis Performed At [facility] Range Method Time Signature Copath Report Patient Name: SHRUTI KIRKLAND MR#: [id number] Specimen #: [id number] Collected: 12/13/2012 00:00 Received: 12/21/2012 11:52 Reported: [...] en by capillary electrophoresis using a Qiagen Exo Protein Bars with Bio Caviarulator software. ??The PCR products from samples positive [...] and its performance determined by sara copeland [facility] [place] ??[facility] Diagnostic Laboratory. It has not been cleared or approved by the U.S. Food and Luis g Administration. ??The FDA has determined that such clearance or approval is not necessary. ??Pursuant to the requirements of CLIA'88, this laboratory has established and verified the test's accuracy and precision. ??This test is used for clinical purposes. Electronically Signed Out By: YOSEF Conservation Assistant TESTING LAB LOCATION: [address] [address] COLLECTION SITE: Client: ??[facility] [place] Location: ??LVFP (R) Specimen (Source) Anatomical Collection Method Collection Time Re ceived Time Location / / Volume Laterality 12/13/2012 12/21/2012 11:5 2 AM CDT Leland Montgomery PA-C LAB - GENOMICS Performing Organization Address City/State/ZIP Code Phon e Number [facility] PAP imaged thin layer, diagnostic (12/13/2012 12:00 AM CDT) Component Value Ref Test Analysis Performed At [facility] Range Method Time Signature PAP NIL [facility] Copath Report [facility] Patient Name: SHRUTI KIRKLAND MR#: [id number] Specimen #: [id number] Collected: 12/13/2012 Received: 12/14/2012 Reported: 12/15/2012 13:30 [...] Harden ( ASCP) Processed and screened at [facility], [facility] CLINICAL HISTORY: LMP: 11/22/12 Previous ASC-US Date of Last Pap: 06/30/12, Papanicolaou Test Limitations: ??Cervical cytology is a scre ening test with limited sensitivity; regular screening is critical for cancer prevention; Pap tests are primarily effective for the diagnosis/prevention of squamous cell carcinoma, not adenoca rcinomas or other cancers. TESTING LAB LOCATION: [address] ??[address] COLLECTION SITE: Client: ??[facility] Location: LVFP (R) Specimen (Source) Anatomical Collection [...] Need for prophylactic vaccination with c ombined fhojpfwzyq-gezsonc-jvdxffayu (DTP) vaccine Heart palpitations Palpitations documented in this encounter Care Teams Oracle Fusion Middleware Developer Relationship Specialty Start Date End Date Leland Montgomery PA-C PCP - General Family Practice 10/21/11 [address] [place] [address] documented as of this encounter
--- OUTSIDE RECORDS SUMMARY | 2022-02-13 08:14 | XMS_ITS | Encounter Summary ---
:1985 Author Organization [place] Address [address] [facility] [place] [address] Care Team Providers Name Role Phone Sarah Montgomery PA-C Primary Care Provider [phone] Encounter Details Date Type Department Care Team Description 11/17/2015 Telephone [facility] January Nayak, RN [address] [place] [address] Social History Tobacco Use Types Packs/Day [...] - 11/17/2015 8:10 AM CDT Triage Addendum [id number] Presenting Problem: 6 weeks , 1st , [...] as of this encounter Care Teams Certified Adaptive Physical Educator Relationship Specialty Start Date End Date Sarah Montgomery PA-C PCP - General Family Practice 10/21/11 [address] [place] [address] documented as of this encounter
--- OUTSIDE RECORDS SUMMARY | 2022-02-13 08:14 | XMS_ITS | Encounter Summary ---
:1985 Author Organization [place] Address [address] [place] [address] Care Team Providers Name Role Phone Sarah Montgomery PA-C Primary Care Provider [phone] Reason for Visit Reason Comments Abdominal Pain 3 days/ tender to touch/ gerri d to pass urine/ not sure of last BM-took laxative yesterday. Period d ue around 09/11. 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 Heart Disease Father [place] at age 42 ??? Depression Father ??? [...] stool softener as needed Marie Vuong NP [facility] documented in this encounter Nursing Notes [...] Microscopic and Culture (09/06/2015 2:54 PM CDT) [facility] Method Time Signature Color Urine Yellow [facility] Appearance Urine Clear [facility] Glucose Urine Negative NEG mg/dL [facility] Bilirubin Urine Negative NEG [facility] Ketones Urine Negative NEG mg/dL [facility] Specific [place] 1.015 1.003 - [place] Urine 1.035 [facility] Blood Urine Negative NEG [facility] pH Urine 7.0 5.0 - 7.0 [place] pH [facility] Protein Albumin Negative NEG mg/dL [place] Urine [facility] Urobilinogen 0.2 0.2 - 1.0 [place] Urine EU/dL [facility] Nitrite Urine Negative NEG [facility] Leukocyte Negative NEG [place] Esterase Urine [facility] Source Midstream [place] Urine [facility] Specimen Anatomical Collection Method Collection Time Receive d Time (Source) Location / / Volume Laterality Urine specimen 09/06/2015 2:54 PM 016 2:59 (specimen) CDT PM CDT Marie Vuong HOME CARE PHYSICAL THERAPIST LAB - URINE ORDERABLES Performing Organization Address City/State/ZIP Code Phon e Number [facility] [address] [place], [place] [address] [address] documented in this encounter Visit Diagnoses Diagnosis Abdominal pain, generalized - Primary Constipation, unspecified constipation t ype documented in this encounter Additional Health Concerns Assessment Noted Time PHQ-9 Depression Total Score: 0 09/07/2015 7:16 AM CDT documented as of this encounter Care Teams Longwall Shearer Operator Relationship Specialty Start Date End Date Sarah Montgomery PA-C PCP - General Family Practice 10/21/11 [address] [place] [address] documented as of this encounter
--- OUTSIDE RECORDS SUMMARY | 2022-02-13 08:14 | XMS_ITS | Encounter Summary ---
:1985 Author Organization [facility] Address [address] [place] [address]. [place] [address] Care Team Providers Name Role Phone Sarah Montgomery PA-C Primary Care Provider Reason for Referral Consultation - Closed Specialty Diagnoses / Procedures Referred By Contact Refer red To Contact Diagnoses Itching of ear Sarah Montgomery [facility] Aguilar PA-C [address] [place] [address] [place] [phone] Referral ID Status Reason Start Date Expiration Date Visits Requ ested Visits Authorized [id number] Closed 11/16/2014 05/15/2015 1 1 Reason for Visit Reason Comments Other itchy eyes and throat due to allergy Encounter Details Date Type Department Care Team Description 11/16/2014 Office Visit [facility] Shaheen Montgomery of ear (Primary Dx); [facility] [place] Sarah Aguilar PA-C Screen for STD (sexually transmitted dis ease); [address] [facility] [address] [place] [address] [phone] Social History Tobacco Use Types Packs/Day Years [...] Rene PA-C - 11/16/2014 9:04 AM CDT (828.9) Itching of ear (primary encounter diagnosis) Comment: [...] Sig Dispense Refill ??? vitamin D (ERGOCALCIFEROL) 35017 UNIT capsule Take 1 capsule (50,000 Units) [...] Follow-up with ENT Sarah Montgomery PA-C, [facility] documented in this encounter Nursing Notes [...] Component Value Ref Test Analysis Performed At [facility] [place] Range Method Time Signature Specimen Urine [facility] Chlamydia Negative NEG UNIVERSITY Trachomatis Negative for C. trachomatis rRNA by regional merchandising manager mediated amplification. [facility] PCR A negative result by transc ription [...] Organization Address City/State/ZIP Code Phon e Number [facility] [address] [place] [address] [facility] [address] [place] [address] NEISSERIA GONORRHOEA PCR (11/16/2014 9:12 AM CDT) Component Value Ref Test Analysis Performed At [facility] [place] Method Time Signature Specimen Urine [facility] N Gonorrhea Negative NEG UNIVERSITY PCR Negative for N. gonorrhoeae rRNA by transcripti on mediated amplification. [facility] A negative result by transc ription mediated [...] MICRO GENERAL OR DERABLES Performing Organization Address City/[facility]/ZIP Code Phon e Number [address] [address] [place] [address] [place] [address] HIV Antigen Antibody Combo (11/16/2014 9:11 AM CDT) [facility] gist Method Time Signature HIV Antigen Nonreactive NR UNIVERSITY OF Antibody HIV-1 p24 Ag & HIV-1/HIV-2 Ab Not Detected [place] [facility] Specimen Anatomical Collection Method Collection Time Receive d Time (Source) Location / / Volume Laterality Blood specimen 11/16/2014 9:11 AM 015 9:12 (specimen) CDT AM CDT Sarah Montgomery PA-C LAB - BLOOD ORDERABLES Performing Organization Address City/[facility] Code Phon e Number [address] documented in this encounter Visit Diagnoses Diagnosis Itching of ear - Primary Unspecified pruritic disorder Screen for STD (sexually transmitted dis ease) Screening examination for venereal disea se Depression Depressive disorder, not elsewhere class ified documented in this encounter Care Teams Director Of Scientific Research Relationship Specialty Start Date End Date Sarah Montgomery PA-C PCP - General Family Practice 10/21/11 [address] [place] [address] documented as of this encounter
--- OUTSIDE RECORDS SUMMARY | 2022-02-13 08:14 | XMS_ITS | Encounter Summary ---
:1985 Author Organization [place] Address [address] [place] [address] Care Team Providers Name Role Phone Sarah Montgomery PA-C Primary Care Provider [phone] Reason for Visit Reason Comments Depression Encounter Details Date Type Department Care Team Description 03/01/2014 Office Visit [facility] Miguel Chawla Depress ion with anxiety (Primary Dx); [facility] [place] ARPAN Gillis TECHNICAL SOURCING RECRUITER Anxiety [address] [address] [phone] Social History Tobacco Use Types Packs/Day Years [...] for 3 days in a row ?? 2258-3753 [facility], [address] [place] [address], [place] [address]. All rights reserved. This information is not [...] Relation Age of Onset ??? Heart Father [place] at age 42 ??? Depression Father ??? [...] effects reviewed with patient. Miguel Chawla NP [facility] documented in this encounter Nursing Notes [...] Miguel Chawla NP - 06/01/2014 10:07 AM WIND OPERATIONS MANAGER Addended by: MIGUEL CHAWLA on: 06/01/2014 10:07 AM Modules accepted: SmartSet OPERATIONS MANAGER Addendum Note - Rick Cordero CMA - 03/01/2014 12:48 PM CDT Addended by: RICK CORDERO on: 03/01/2014 12:48 PM Modules accepted: Orders, SmartSet documented in this encounter Plan of Treatment Not on filedocumented as of this encounter Visit Diagnoses Diagnosis Depression with anxiety - Primary Dysthymic disorder Anxiety Anxiety state, unspecified documented in this encounter Care Teams Forging Die Sinker Relationship Specialty Start Date End Date Sarah Montgomery PA-C PCP - General Family Practice 10/21/11 [address] [place] [address] documented as of this encounter
--- OUTSIDE RECORDS SUMMARY | 2022-02-13 08:14 | XMS_ITS | Encounter Summary ---
:1985 Author Organization [facility] Address [address] [place] [address] Care Team Providers Name Role Phone Sarah Montgomery PA-C Primary Care Provider [phone] Encounter Details Date Type Department Care Team Description 11/22/2013 [facility]phone [facility] Zarina Murillo, RN [address] [place] [address] Social History Tobacco Use Types Packs/Day [...] on filedocumented in this encounter Care Teams Jacquard Card Lacer Relationship Specialty Start Date End Date Sarah Montgomery PA-C PCP - General Family Practice 10/21/11 [address] [place] [address] documented as of this encounter
--- OUTSIDE RECORDS SUMMARY | 2022-02-13 08:14 | XMS_ITS | Encounter Summary ---
:1985 Author Organization [place] Address [facility] 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 Patient's last menstrual period was 01/19/2014. 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 Family History Problem Relation Age of Onset ??? Heart Father [place] at age 42 ??? 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 PLAN: Dx: 1) Pap smear today: [...] Dr. Nadiya Bautista DO Obstetrics and Gynecology [facility] documented in this encounter Nursing Notes Macie Roblero LPN - 02/15/2014 9:39 AM CDT Chief Complaint Patient presents with ??? 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 trachomatis rRNA by senior mobile solutions architect mediated amplification. MICROBIOLOGY PCR A negative result [...] MICRO GENERAL ORDERABL ES Performing Organization Address [facility] Phon e Number [place] [address] [address] [place], [place] [address] [address] [facility] MICROBIOLOGY NEISSERIA GONORRHOEA PCR (02/15/2014 2:53 PM CDT) Component Value Ref Test Analysis Performed At [facility] [place] Method Time [facility] Specimen Cervical [facility] N Gonorrhea Negative NEG FUM PCR Negative [...] MICRO GENERAL ORDERABL ES Performing Organization Address [facility] Phon e Number [id number] [place] [address] [place], [place] [address] [address] [facility] MICROBIOLOGY HPV screen with reflex to genotype (02/15/2014 12:00 AM CDT) Component Value Ref Test Analysis Performed At [facility] Method Time Signature Bettina Report Patient Name: SHRUTI KIRKLAND MR#: [id number] Specimen #: [id number] Collected: 02/15/2014 00:00 Received: 02/22/2014 15:33 Reported: [...] en by capillary electrophoresis using a Qiagen Buy buy tea with [employer]Now WorldWide Calculator software. ??The PCR products from samples [...] and its performance characteristics determined by the [facility], ??Molecular D iagnostics Laboratory. It has not been cleared or approved by the FDA. The laboratory is regulated under CLIA as qualified to perform high-complexity testing. This test is used for clinical purp oses. It should not be regarded as investigational or for research. Electronically Signed Out By: YOSEF Cost Control Analyst CPT Codes: A: 25661- HPVSC TESTING LAB LOCATION: [address] [address] COLLECTION SITE: Client: ??[facility] Location: ??RIOB (R) Specimen (Source) Anatomical Collection Method Collection Time Re ceived Time Location / / Volume Laterality 02/15/2014 02/22/2014 3:33 PM CDT Nadiya Bautista DO LAB - GENOMICS Performing Organization Address City/State/ZIP Code Phon e Number [facility] PAP imaged thin layer, diagnostic (02/15/2014 12:00 AM CDT) Component Value Ref Test Analysis Performed At [facility] Range Method Time Signature PAP NIL COPATH Copath Report COPATH Patient Name: SHRUTI KIRKLAND MR#: [id number] Specimen #: [id number] Collected: 02/15/2014 Received: 02/17/2014 Reported: 02/21/2014 10:48 [...] Malignancy Electronically signed out by: Saba Bone [facility] (ASCP) Processed and screened at [facility] CLINICAL HISTORY: LMP: 01/19/14 Previous normal pap Date of Last Pap: 12/13/12 Previous abnormal pap: HISTORY OF, Papanicolaou Test Limitations: ??Cervical cytology is a scre ening test with limited sensitivity; regular screening is critical for cancer prevention; Pap tests are primarily effective for the diagnosis/prevention of squamous cell carcinoma, not adenoca rcinomas or other cancers. TESTING LAB LOCATION: [address] ??[address] COLLECTION SITE: Client: ??[facility] Location: RIOB (R) Specimen (Source) Anatomical [...] examination documented in this encounter Care Teams Library Director Relationship Specialty Start Date End Date Sarah Montgomery PA-C PCP - General Family Practice 10/21/11 [address] [place] [address] documented as of this encounter
--- OUTSIDE RECORDS SUMMARY | 2022-02-13 08:14 | XMS_ITS | Encounter Summary ---
:1985 Author Organization [place] Address [address] [facility] [place] [address] Care Team Providers Name Role Phone Sarah Montgomery PA-C Primary Care Provider Reason for Referral Vision Services - Closed Specialty Diagnoses / Procedures Referred By Contact Refer red To Contact Diagnoses Dizziness Poonam Rosales APRN [facility] [employer] SURGEON [address] [facility] [address] [place] [address] [place] [address] Referral ID Status Reason Start Date Expiration Date Visits Requ ested Visits Authorized [id number] Closed 10/05/2014 04/03/2015 1 1 Reason for Visit Reason Comments Dizziness intermittent dizzy episodes after past few months last anywhere from a couple minutes to a couple h ours, also having headaches across forehead for last weeks. Pharyngitis sore, itchy throat started t brandon with ear itching Encounter Details Date Type Department Care Team Description [facility]/05[facility]2014 [facility] All[facility]initis (Primary Dx); Clinic Kiana Toledo APRN CNP Seasonal allergic rhinitis; [address] [place] [address] Ear itching; [place], [place] Dizziness; [place] [address] Headache(784.0); [phone] Eczema of both external ears [phone] Social History Tobacco Use Types Packs/Day Years [...] for 7-10 days Labs today MRI brain [phone] to schedule Eye exam [facility] [email or web address] documented in this encounter Progress Notes Poonam [...] Relation Age of Onset ??? Heart Father [place] at age 42 ??? Depression [...] 6. Eczema of both external ears 380.22 chyaylfv-euanxbcjj-igypnoptqrinfe (CORTISPORIN) [id number] otic suspension Patient Instructions Vanicream to skin for dry skin Singulair daily for allergy Cortisporin ear drops 4 drops 4 times a day for 7-10 days Labs today MRI brain [phone] to schedule Eye exam [facility] [email or web address] Poonam Rosales APRN [facility] documented in this encounter Nursing Notes Olga [...] identified. ANTELMO DAVIES MD Poonam Rosales APRN [facility] MRI ORDERABLES (ABNORMAL) Vitamin D Deficiency (10/05/2014 9:03 AM CDT) P athologist Signature Vitamin D 18 (L) 30 - 75 UNIVERSITY OF Deficiency ug/L [place] [facility] screening [facility] Comment: Season, race, dietary intake, and treatm ent affect the concentration of 68-kbjqovc-Oaxchrv D. Values may decrea se during winter [...] (specimen) CDT AM CDT Poonam Rosales APRN AIRCRAFT PARTS ASSEMBLER LAB - BLOOD ORDERABLES Performing Organization Address City/State/ZIP [facility] Phon e Number [address] [address] [facility] (ABNORMAL) Comprehensive metabolic panel (10/05/2014 9:03 AM CDT) [facility] gist Method Time Signature Sodium 138 133 - 144 [place] mmol/L [facility] Potassium 4.2 3.4 - 5.3 [place] mmol/L [facility] [place] Chloride 105 94 - 109 [place] mmol/L [facility] Carbon Dioxide 25 20 - 32 [place] mmol/L [facility] Anion Gap 8 3 - 14 [place] mmol/L [facility] Glucose 64 (L) 70 - 99 [place] mg/dL [facility] Urea Nitrogen 9 7 - 30 [place] mg/dL [facility] Creatinine 0.74 0.52 - [place] 1.04 CLINICS mg/dL [facility] GFR Estimate >90 >60 [place] Non GFR Calc mL/min/1. CLINICS 7m2 [place] GFR Estimate If >90 >60 [place] Black GFR Calc mL/min/1. CLIN ICS 7m2 [place] [facility] Calcium 9.0 8.5 - [place] 10.1 CLINICS mg/dL [facility] Bilirubin Total 0.8 0.2 - 1.3 [facility]dL [facility] Albumin 4.3 3.4 - 5.0 [place] g/dL [facility] Protein Total 7.4 6.8 - 8.8 [place] g/dL [facility] Alkaline 63 40 - 150 [place] Phosphatase U/L [facility] ALT 20 0 - 50 [place] U/L [facility] AST 9 0 - 45 [place] U/L [facility] Specimen Anatomical Collection Method Collection Time Receive d Time (Source) Location / / Volume Laterality Blood specimen 10/05/2014 9:03 AM 9:08 (specimen) CDT AM CDT Poonam Rosales APRN AIRCRAFT PARTS ASSEMBLER LAB - BLOOD ORDERABLES Performing Organization Address City/State/ZIP Code Phon e Number [facility] [address] [place] [address] TSH with free T4 reflex (10/05/2014 9:03 AM CDT) P athologist Signature TSH 2.87 0.40 - 4.00 [facility] mU/L [facility] Specimen Anatomical Collection Method Collection Time Receive d Time (Source) Location / / Volume Laterality Blood specimen 10/05/2014 9:03 AM 015 9:08 (specimen) CDT AM CDT Poonam [place] Connie LEWISN AIRCRAFT PARTS ASSEMBLER LAB - BLOOD ORDERABLES Performing Organization Address City/[facility]/ZIP Code Phon e Number [facility] [address] [place] [address] CBC with platelets differential (10/05/2014 9:03 AM CDT) Patholo gist Method Time Signature WBC 5.3 4.0 - [place] 11.0 CLINICS 10e9/L [place] RBC Count 4.75 3.8 - 5.2 [place] 10e12/L [facility] Hemoglobin 14.7 11.7 - [place] 15.7 g/dL [facility] Hematocrit 43.6 35.0 - [place] 47.0 % [facility] MCV 92 78 - 100 [facility] MCH 30.9 26.5 - [place] 33.0 pg [facility] MCHC 33.7 31.5 - [place] 36.5 g/dL [facility] RDW 12.9 10.0 - [place] 15.0 % [facility] Platelet Count 293 150 - 450 [place] 10e9/L [facility] Diff Method Automated [facility] % Neutrophils 43.7 % [facility] % Lymphocytes 41.2 % [facility] % Monocytes 11.7 % [facility] % Eosinophils 2.8 % [facility] % Basophils 0.6 % [facility] Absolute 2.3 1.6 - 8.3 [place] Neutrophil 10e9/L [facility] Absolute 2.2 0.8 - 5.3 [place] Lymphocytes 10e9/L [facility] Absolute 0.6 0.0 - 1.3 [place] Monocytes 10e9/L [facility] [place] Absolute 0.2 0.0 - 0.7 [place] Eosinophils 10e9/L [facility] Absolute 0.0 0.0 - 0.2 [place] Basophils 10e9/L [facility] Specimen Anatomical Collection Method Collection Time Receive d Time (Source) Location / / Volume Laterality Blood specimen 10/05/2014 9:03 AM 015 9:08 (specimen) CDT AM CDT Poonam Rosales APRN AIRCRAFT PARTS ASSEMBLER LAB - BLOOD ORDERABLES Performing Organization Address City/State/ZIP Code Phon e Number [facility] [address] [place], [place] [address] [address] documented in this encounter Visit Diagnoses Diagnosis Allergic rhinitis - Primary Allergic rhinitis, cause unspecified Seasonal allergic rhinitis Allergic rhinitis, cause unspecified Ear itching Unspecified pruritic disorder Dizziness Dizziness and giddiness Headache(784.0) Headache Eczema of both external ears Dizziness Dizziness and giddiness Headache(784.0) Headache documented in this encounter Care Teams Projector Booth Operator Relationship Specialty Start Date End Date Ronaldo-Sarah Doshi PA-C PCP - General Family Practice 10/21/11 [address] [place] [address] documented as of this encounter
--- OUTSIDE RECORDS SUMMARY | 2022-02-13 08:14 | XMS_ITS | Encounter Summary ---
:1985 Author Organization [place] Address [address] [place] [address] Care Team Providers Name Role Phone Sarah Montgomery PA-C Primary Care Provider [phone] Reason for Visit Reason Comments Care NPN visit with the nurse Encounter Details Date Type Department Care Team Description 12/11/2015 Office [facility] p estelita (Primary Dx); Visit Clinic [place] Encounter for supervision of normal first , unspecified trimester [Z34.00] [address] [place] [phone] Social History Tobacco Use Types Packs/Day Years [...] Narrative 12/21/2015 3:43 PM CDT Order #: [id number] Study Notes? Karley Damico on 12/20/2015 10:51 AM ?? [facility] Obstetrics & Gynecology [address] [facility] [place] [address] ULTRASOUND - EARLY OB (0-11 WEEKS) Referring Provider: Nadiya Bautista Clinic: [facility] INDICATIONS FOR ULTRASOUND: OB History: ?? Present [...] Component Value Ref Test Analysis Performed At [facility] Method Time Signature Specimen Midstream Urine [facility] Culture Micro 10,000 to 50,000 colonies/mL mixed [...] Code Phon e Number INFECTIOUS DISEASES [address] [place] [address] DIAGNOSTIC LABORATORY, [facility] [address] [place] [address] [place] [address] INFECTIOUS DISEASE [address] [place] [address], [facility] DIAGNOSTIC LABORATORY ABO/RH TYPE AND SCREEN (12/11/2015 8:56 AM CDT) Patholo gist Method Time Signature Units Ordered <<Do Not [place] Report>> [facility] ABO A [facility] RH(D) Pos [facility] Antibody Neg [place] Screen [facility] Test Valid [facility] Only At [facility] Specimen 12/14/2015 [place] [facility] Spec[facility] Anatomical Collection Method Collection Time Receive d Time (Source) Location / / Volume Laterality Blood specimen 12/11/2015 8:56 AM 016 9:01 (specimen) CDT AM CDT Nadiya Bautista DO LAB - BLOOD BANK TEST ORDER Performing Organization Address City/[facility]/ZIP Code Phon e Number [facility] [address] [place], [place] [address] [facility] [address] [place], [place] [address] [facility] [phone] Anti Treponema (12/11/2015 8:55 AM CDT) Analysis Performed At Path logist Time Signature Treponema Negative NEG [facility] Specimen Anatomical Collection Method Collection Time Receive d Time (Source) Location / / Volume Laterality Blood specimen 12/11/2015 8:55 AM 016 9:00 (specimen) CDT AM CDT Nadiya Bautista DO LAB - BLOOD ORDERABLES Performing Organization Address City/State/ZIP Code Phon e Number [facility] [address] [place] [address] [facility] Hepatitis B surface antigen (12/11/2015 8:55 AM CDT) [facility] gist Method Time Signature Hep B Surface Nonreactive NR [facility] Specimen Anatomical Collection Method Collection Time Receive d Time (Source) Location / / Volume Laterality Blood specimen 12/11/2015 8:55 AM 016 9:00 (specimen) CDT AM CDT Nadiya Bautista DO LAB - BLOOD ORDERABLES Performing Organization Address City/[facility]/ZIP Code Phon e Number [address] Rubella Antibody IgG Quantitative (12/11/2015 8:55 AM CDT) [facility] Signature Rubella Antibody 7 IU/mL [facility] IgG Quantitative [facility] Comment: Negative Reference Range: ?? Unvaccinated Negative 0-7 IU/mL Vaccinated or previous exposure Positiv e 10 IU/ml or greater Specimen Anatomical Collection Method Collection Time Receive d Time (Source) Location / / Volume Laterality Blood specimen 12/11/2015 8:55 AM 016 9:00 (specimen) CDT AM CDT Nadiya Bautista DO LAB - BLOOD ORDERABLES Performing Organization Address City/[facility]/ZIP Code Phon e Number [address] HIV Antigen Antibody Combo (12/11/2015 8:55 AM CDT) [facility] gist Method Time Signature HIV Antigen Nonreactive NR [facility] HIV-1 p24 Ag & HIV-1/HIV-2 Ab Not Detected [facility] Specimen Anatomical Collection Method Collection Time Receive d Time (Source) Location / / Volume Laterality Blood specimen 12/11/2015 8:55 AM 016 9:00 (specimen) CDT AM CDT Nadiya Bautista DO LAB - BLOOD ORDERABLES Performing Organization Address City/[facility]/ZIP Code Phon e Number [place] [phone] [place] CBC WITH PLATELETS (12/11/2015 8:55 AM CDT) P athologist Signature WBC 8.0 4.0 - 11.0 [facility] 10e9/L [facility] RBC Count 4.29 3.8 - 5.2 [facility] 10e12/L [facility] Hemoglobin 13.2 11.7 - [place] 15.7 g/dL [facility] Hematocrit 38.9 35.0 - [place] 47.0 % [facility] MCV 91 78 - 100 [facility] MCH 30.8 26.5 - [place] 33.0 pg [facility] MCHC 33.9 31.5 - [place] 36.5 g/dL [facility] RDW 12.2 10.0 - [place] 15.0 % [facility] Platelet Count 255 150 - 450 [place] 10e9/L [facility] Specimen Anatomical Collection Method Collection Time Receive d Time (Source) Location / / Volume Laterality Blood specimen 12/11/2015 8:55 AM 016 9:00 (specimen) CDT AM CDT Nadiya Bautista DO LAB - BLOOD ORDERABLES Performing Organization Address City/State/ZIP Code Phon e Number [facility] [address] [place], [place] [address] [address] documented in this encounter Visit Diagnoses Diagnosis First - Primary Supervision of normal first Encounter for supervision of normal firs t , unspecified trimester [Z34.00] First Supervision of normal first documented in this encounter Additional Health Concerns Assessment Noted Time PHQ-9 Depression Total Score: 0 09/07/2015 7:16 AM CDT documented as of this encounter Care Teams Mixer Attendant Relationship Specialty Start Date End Date Sarah Montgomery PA-C PCP - General Family Practice 10/21/11 [address] [place] [address] documented as of this encounter
--- OUTSIDE RECORDS SUMMARY | 2022-02-13 08:14 | XMS_ITS | Encounter Summary ---
:1985 Author Organization [place] Address [address] [place] [address]. [place] [address] Care Team Providers Name Role Phone Sarah Montgomery PA-C Primary Care Provider [phone] Encounter Details Date Type Department Care Team Description 02/18/2016 Radiant Appointment [facility] Nadiya Bautista renatal care in [facility] first trimester [address] [place] [phone] Social History Tobacco Use Types Packs/Day Years [...] Laterality Volume Narrative 02/19/2016 10:33 AM CDT [facility] Obstetrics & Gynecology [address] [place] [address] ULTRASOUND - COMPLETE OB (18+) Referring Provider: Nadiya Bautista [facility]: [facility] INDICATIONS FOR ULTRASOUND: OB History: Present Conditions: Initial Survey (18-26 weeks) CLINICAL INFORMATION LMP: October 07 sure EDC: Jul 11 EGA: 18w3d Previous US: Yes Location: [facility] EDC: Jul 11 correspond MEASUREMENTS BPD: [...] documented as of this encounter Care Teams Financial Officer Relationship Specialty Start Date End Date Sarah Montgomery PA-C PCP - General Family Practice 10/21/11 [address] [place] [address] documented as of this encounter
--- NOTE | 2022-02-13 08:15 | CRLHL7_ITS ---
For Patients: As a result of the Century Cures Act, medical imaging exams and procedure reports are released immediately into your electronic medical record. You may view this report before your referring provider. If you have questions, please contact your health care provider. INDICATION: Evaluate anatomy. COMPARISON: 12/31/2021 TECHNIQUE: Real time cmmahon scale imaging of the fetus was performed as well as color Doppler analysis of the umbilical vessels. FINDINGS: Sonographic imaging demonstrates a single living intrauterine gestation. Fetus demonstrates a regular cardiac rate of 144 beats per minute. Fetus has a vertex position. The placenta lies anterior without evidence of placenta previa. The edge of the placenta is 6.5 cm from the internal cervical os. Amniotic fluid volume appears normal. Single deepest vertical pocket: 4.1 cm. The cervix is closed and measures 3.7 cm in length. The composite ultrasound gestational age is calculated at 19 weeks 4 days with an estimated sonographic due date of 07/06/2022. The estimated weight is 299 grams which lies at the 23rd %. The following biometric measurements were obtained: Biparietal diameter: 4.7 cm/20 weeks 1 day 54th% Head circumference: 17.1 cm/19 weeks 5 days 28th% Abdominal circumference: 14.3 cm/19 weeks 5 days 34th% Femur length: 3.0 cm/19 weeks 2 days 20th% The HC/AC ratio measures: 1.19 range (1.08-1.26) On anatomic survey, there is a normal appearance of the cerebral ventricles, cavum septi pellucidi, cisterna magna and cerebellum. The nose, lips, and facial profile appear normal. The cervical, thoracic and lumbar spine are well visualized and appear normal. The left and right ventricular outflow tracts appear normal. Echogenic left ventricular focus. The diaphragm and stomach appear normal. The kidneys and bladder also appear normal. There is a normal three-vessel cord and cord insertion site. The four extremities appear normal. IMPRESSION: Concordance of clinical and sonographic dating. Echogenic intracardiac focus. Remainder of the anatomic survey normal. Level 2 ultrasound recommended. Dictated by Cassius Wilkins MD @ 02/13/2022 10:49:42 AM (Electronically Signed)
--- OUTSIDE RECORDS SUMMARY | 2022-02-13 08:15 | XMS_ITS | Encounter Summary ---
:1985 Author Organization [place] Address [address] [place] [address] Care Team Providers Name Role Phone Sonny Murray MD Primary Care Provider Unavailable Reason for Visit Reason Comments Derm Problem HPV/genital warts Encounter Details Date Type Department Care Team Description 06/19/[address] [facility] Sonny Murray Screening for Malignant Neoplasm of the Cervix (Primary Dx); [facility] MD [place] Special Scree luisa Examination for Other Specified Chlamydial Diseases; [place] Need Vaccination-Viral Disea se; [address] HPV (Human Papilloma Virus) Anogenital Infection [address] [place] [address] Social History Tobacco Use Types Packs/Day Years Used Date Never Smoker Alcohol Use Standard Drinks/Week Comments No 0 (1 standard drink = 0.6 oz pure alcoho l) Sex Assigned at Date Recorded Not on file documented as of this encounter Last Filed Vital Signs Vital Sign Reading Time Taken Comments Blood Pressure 100/70 06/19/2008 5:15 PM CAGE TENDER Pulse - - Temperature - - Respiratory Rate - - Oxygen Saturation - - Inhaled Oxygen Concentration - - Weight 64.2 kg (141 lb 8 oz) 06/19/2008 5:15 PM CAGE TENDER Height 167.6 cm (5' 6) 06/19/2008 5:15 PM CAGE TENDER Body Mass Index 22.84 06/19/2008 5:15 PM CAGE TENDER documented in this encounter Progress Notes Sonny [...] TCA, declined condolyx, aldara. 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 HPV. PLAN: 1) Pap smear 2) Mammography, lipids at appropriate intervals PE: reviewed health maintenance including diet, regular exercise and periodic exams. TENDER documented in this encounter Nursing Notes 06/19/2008 5:15 PM CST >> SAUMYA Boyle Jun 19, 2008 5:33 PM Rhonda Kirkland presents for consult for genital warts. [facility]. States warts are between vagina [...] (Human Papil darius LESION, UP TO 14 CAGE TENDER Virus) Anogenital Infection CL AFF Routine 06/19/2008 7:23 PM Special Screening Resu lts for this N.GONORRHOEAE, DNA CAGE TENDER Examination for proced ure are in AMP PROBE Other Specified the results Chlamydial Diseases section. CL AFF CHLMYD Routine 06/19/2008 7:23 PM Special Screening Res ults for this TRACH, DNA, AMP CAGE TENDER Examination for procedure are in PROBE Other Specified the results Chlamydial Diseases section. HCL PAP THIN LAYER Routine 06/19/2008 12:00 AM Screening for R esults for this SCREEN CAGE TENDER Malignant Neoplasm procedure are in of the Cervix the results section. documented in this encounter Results CHLMYD TRACH, DNA, AMP PROBE (06/19/2008 7:23 PM CAGE TENDER) Component Value Ref Test Analysis Performed At [facility] gist Range Method Time Signature Specimen [facility] LAB Chlamydia Negative for C. trachomatis rRNA by geriatric physician mediated amplification. [facility] Trachomatis A negative result [...] Volume Laterality 06/19/2008 7:23 PM 9 7:29 CAGE TENDER PM CAGE TENDER Sonny Murray MD LABORATORY Performing Organization Address City/[facility]/ZIP Code Phon e Number [address] [place] [phone] [place] [address] LAB [facility] N.GONORRHOEAE, DNA, (GC) (06/19/2008 7:23 PM CAGE TENDER) Component Value Ref Test Analysis Performed At [facility] Range Method Time Signature Specimen [facility] LAB N Gonorrhea Negative for N. gonorrhoeae rRNA by geriatric physician mediated amplification. [facility] PCR A negative result by transc ription mediated amplification does not preclude the [place] presence of N. gonorrhoeae infection because re sults are dependent on proper [place] [facility] and adequate collection, absence of inhibitors, and suffici ent rRNA to be detected. Specimen Anatomical Collection Method Collection Time Receive d Time (Source) Location / / Volume Laterality 06/19/2008 7:23 PM 9 7:29 CAGE TENDER PM CAGE TENDER Sonny Murray MD LABORATORY Performing Organization Address [facility]/ZIP Code Phon e Number [address] [place] [phone] [place] [address] LAB [facility] (ABNORMAL) A THIN LAYER PAP SCREEN (06/19/2008 12:00 AM CAGE TENDER) Component Value Ref Test Analysis Performed At [facility] Range Method Time Signature PAP HSIL (A) COPATH Copath Report COPATH Patient Name: RHONDA KIRKLAND MR#: [id number] Specimen #: [id number] Collected: 06/19/2008 Received: 06/21/2008 Reported: 06/23/2008 16:27 [...] Mauri Pisano M.D. [facility] CLINICAL HISTORY: LMP: 06/15/08 Previous normal pap Date of Last Pap: 06/29/06, TESTING LAB LOCATION: [facility] [address], [place] ??[address] COLLECTION SITE: Client: ??[facility] Location: RIOB (R) Specimen (Source) Anatomical Collection Method Collection Time Re ceived Time Location / / Volume Laterality 06/19/2008 06/21/2008 9:03 AM CAGE TENDER Sonny Murray MD LABORATORY Performing Organization Address [...] site documented in this encounter Care Teams Hood Fitter Relationship Specialty Start Date End Date Sonny Murray MD PCP - General 06/24/0410/19 documented as of this encounter
--- OUTSIDE RECORDS SUMMARY | 2022-02-13 08:15 | XMS_ITS | Encounter Summary ---
:1985 Author Organization [facility] Address [address] [place] [address] Care Team Providers Name Role Phone Morris Murray MD Primary Care Provider Unavailable Reason for Visit Reason Comments Consult consultation regarding colpo scopy Encounter Details Date Type Department Care Team Description 07/13/2008 Office Visit [facility] Morris Murray HSIL ([facility] Sammi Diallo MD Intraepit helial Lesion) [place] on PAP Smear (Primary Dx) [address] [address] Social History Tobacco Use Types [...] Comments Blood Pressure 104/58 07/13/2008 2:15 PM HIGH SCHOOL LIBRARIAN Pulse - - Temperature - - Respiratory Rate - - Oxygen Saturation - - Inhaled Oxygen Concentration - - Weight 64 kg (141 lb) 07/13/2008 2:15 PM HIGH SCHOOL LIBRARIAN Height 167.6 cm (5' 6) 07/13/2008 2:15 PM HIGH SCHOOL LIBRARIAN Body Mass Index 22.76 07/13/2008 2:15 PM HIGH SCHOOL LIBRARIAN documented in this encounter Progress Notes Morris [...] 15 minute discussion. Patient to schedule colposcopy. SCHOOL LIBRARIAN documented in this encounter Nursing Notes 07/13/2008 [...] (HGSIL) documented in this encounter Care Teams Ar Manager Relationship Specialty Start Date End Date Morris Murray MD PCP - General 06/24/0410/19 documented as of this encounter
--- OUTSIDE RECORDS SUMMARY | 2022-02-13 08:15 | XMS_ITS | Encounter Summary ---
:1985 Author Organization [facility] Address [address] [place] [address] Care Team Providers Name Role Phone Morris Murray MD Primary Care Provider Unavailable Encounter Details Date Type Department Care Team Description 05/03/2007 Emergency room Delvin Coreas MD EMERGENCY PHYSIC [address] [address] (Wo rk) Social History Tobacco Use Types Packs/Day Years Used Date Never Smoker Alcohol Use Standard Drinks/Week Comments No 0 (1 standard drink = 0.6 oz pure alcoho l) Sex Assigned at Date Recorded Not on file documented as of this encounter Progress Notes Delvin Coreas - 05/28/2007 4:50 PM SLACK LINE YARDER FINAL ADDENDUM: I was contacted by Dr. [...] in a prescription in to [facility] in [place] of Cipro 500 mgb.i.d. for 2 weeks. [...] MD MT: crys Name: RHONDA KIRKLAND Account: [id number] : 1985 Visit Date: 05/03/2007 Document: [id number] cc: Primary K LINE YARDER documented in this encounter Plan of Treatment Not on filedocumented as of this encounter Visit Diagnoses Not on filedocumented in this encounter Care Teams Door Trimmer Relationship Specialty Start Date End Date Morris Murray MD PCP - General 06/24/0410/19 documented as of this encounter
--- OUTSIDE RECORDS SUMMARY | 2022-02-13 08:15 | XMS_ITS | Encounter Summary ---
:1985 Author Organization [facility] Address [address] [place] [address] Care Team Providers Name Role Phone Sarah Montgomery PA-C Primary Care Provider [phone] Reason for Visit Reason Onset Date Comments Nurse Advice Line 12/07/2012 Genital herpes Encounter Details Date Type Department Care Team Description 12/07/2012 Telephone [facility] Valentina, Nurse Advice Line [facility] Sarah Aguilar PA-C (Genital herpes ) [address] [place] [address] [place] [address] [phone] Social History Tobacco Use Types Packs/Day Years [...] Patient scheduled future appt 12/13. Rachell Peña Local Delivery Truck Driver Telephone Encounter - Corazon Wellington - 12/07/2012 11:54 AM CDT Left message for patient to call the clinic, please give her the message below. Corazon Wellington Local Delivery Truck Driver Telephone Encounter - Sarah Montgomery PA-C - [...] 2 times daily.Class: E-Prescribe Route: Oral Order: [id number] [employer] Genital herpes simplex, Initial and recurrent [...] this lyndsay. Will refer to pcp and MOTORCYLES FINAL INSPECTOR MD Please advise. Thanks! Annette White RN. documented in this encounter Plan of Treatment Not on filedocumented as of this encounter Visit Diagnoses Diagnosis Genital herpes - Primary Recurrent herpes simplex Herpes simplex without mention of compli cation documented in this encounter Care Teams Back Shoe Cutter Relationship Specialty Start Date End Date Sarah Montgomery PA-C PCP - General Family Practice 10/21/11 [address] [place] [address] documented as of this encounter
--- OUTSIDE RECORDS SUMMARY | 2022-02-13 08:15 | XMS_ITS | Encounter Summary ---
:1985 Author Organization [place] Address [address] [facility] [place] [place] [address] Care Team Providers Name Role Phone Sarah Montgomery PA-C Primary Care Provider [phone] Reason for Visit Reason Onset Date Comments Call To Schedule Appointment 05/13/2012 Ultrasound Encounter Details Date Type Department Care Team Description 05/13/2012 Telephone [facility] Nadiya Bautista Call To Schedule [facility] DO [place] Appointment [place] [phone] [place] [address] J[place] (Ultrasound) [address] [place], [place] [address] [address] [place], [place] [phone] [address] (Work) [phone] Social History Tobacco Use Types Packs/Day Years [...] per order from Dr Bautista on 05/13/12. CLABLE MATERIALS COLLECTOR Telephone Encounter - Mandi Wang - 05/14/2012 10:38 AM CST Left message for Rhonda to return call to schedule an Ultrasound. CLABLE MATERIALS COLLECTOR Telephone Encounter - Irene Portillo - 05/13/2012 12:42 PM CST Left message for Rhonda to return call to schedule an Ultrasound. CLABLE MATERIALS COLLECTOR documented in this encounter Plan of Treatment Not on filedocumented as of this encounter Visit Diagnoses Not on filedocumented in this encounter Care Teams Children'S Attendant Relationship Specialty Start Date End Date Sarah Montgomery PA-C PCP - General Family Practice 10/21/11 [address] [place] [address] documented as of this encounter
--- OUTSIDE RECORDS SUMMARY | 2022-02-13 08:15 | XMS_ITS | Encounter Summary ---
:1985 Author Organization [place] Address [address] [place] [address] Care Team Providers Name Role Phone Sonny Murray MD Primary Care Provider Unavailable Reason for Visit Reason Comments Abnormal Uterine Bleeding Mass Encounter Details Date Type Department Care Team Description [facility] N [facility] (Primary Dx); [facility] MD [place] MENSTRUAL DIS ORDER [address] [place] [phone] Social History Tobacco Use Types Packs/Day Years Used Date Never Smoker Alcohol Use Standard Drinks/Week Comments No 0 (1 standard drink = 0.6 oz pure alcoho l) Sex Assigned at Date Recorded Not on file documented as of this encounter Last Filed Vital Signs Vital Sign Reading Time Taken Comments Blood Pressure 100/68 06/24/2004 2:33 PM SUPERVISOR SILVERING DEPARTMENT Pulse - - Temperature - - Respiratory Rate - - Oxygen Saturation - - Inhaled Oxygen Concentration - - Weight 63 kg (138 lb 12.8 oz) 06/24/2004 2:33 PM SUPERVISOR SILVERING DEPARTMENT Height - - Body Mass Index - - documented in this encounter Progress Notes 06/24/2004 2:45 PM SUPERVISOR SILVERING DEPARTMENT SUBJECTIVE: Rhonda Kirkland is a 18 year [...] uterus antiverted. Extremities: Normal ASSESSMENT: Satisfactory annual plant cytologist exam. Right breast lump in skin? AUB [...] THIN LAYER Routine 06/24/2004 12:00 AM Routine Lending Activities Supervisor Re sults for this SCREEN SUPERVISOR SILVERING DEPARTMENT Examination procedure are i n the results section. documented in this encounter Results A THIN LAYER PAP SCREEN (06/24/2004 12:00 AM SUPERVISOR SILVERING DEPARTMENT) Component Value Ref Test Analysis Performed At [facility] Range Method Time Signature Copath Report Patient Name: RHONDA KIRKLAND MR#: [id number] Specimen #: [id number] Collected: 06/24/2004 Received: 06/25/2004 Reported: 06/26/2004 14:32 Ordering Phy(s): SONNY MURRAY SPECIMEN/STAIN PROCESS: Pap thin layer prep screening ? Pap-Cyto x 1, Reflex HPV x 1 SOURCE: Cervical, endocervical ---- Pap thin layer prep screening SPECIMEN ADEQUACY: Satisfactory for evaluation. -Transitional zone component absent. CYTOLOGIC INTERPRETATION: Negative for Intraepithelial Lesion or Malignancy Electronically signed out by: JOHNNIE Sahni (ASCP) Processed and screened at [facility] CLINICAL HISTORY: LMP: 05/31/04 Abnormal Bleeding, First pap test, Specimen (Source) Anatomical Collection Method Collection Time Re ceived Time Location / / Volume Laterality 06/24/2004 06/25/2004 9:26 AM SUPERVISOR SILVERING DEPARTMENT Sonny Murray MD LABORATORY Performing Organization Address City/State/ZIP Code Phon e Number [place] documented in this encounter Visit Diagnoses Diagnosis Routine gynecological examination - Prim steve Other disorder of menstruation and other abnormal bleeding from female genital tract documented in this encounter Care Teams Stud Master/Mistress Relationship Specialty Start Date End Date Sonny Murray MD PCP - General 06/24/0410/19 documented as of this encounter
--- OUTSIDE RECORDS SUMMARY | 2022-02-13 08:15 | XMS_ITS | Encounter Summary ---
:1985 Author Organization [place] Address [address] [place] [address] Care Team Providers Name Role Phone Morris Murray MD Primary Care Provider Unavailable Encounter Details Date Type Department Care Team Description 05/03/2007 Historic Results INTERFACED REPORT Sherrie Steele MD EMERGENCY PHYSIC [place] [address] 5[address] Social History Tobacco Use Types Packs/Day [...] Re sults for this AND PLATELET PM LAMBSKIN TRIMMER procedure are i n the results section. BASIC METABOLIC PANEL STAT 05/03/2007 11:56 Re sults for this PM LAMBSKIN TRIMMER procedure are i n the results section. HCG QUALITATIVE URINE STAT 05/03/2007 11:50 Re sults for this PM LAMBSKIN TRIMMER procedure are i n the results section. UA MACROSCOPIC WITH STAT 05/03/2007 11:50 Resu lts for this REFLEX TO MICRO PM LAMBSKIN TRIMMER procedure ar e in the results section. documented in this encounter Results Hemogram differential and platelet (05/03/2007 11:56 PM LAMBSKIN TRIMMER) [facility] Method Time Signature MCV 93 78 - [...] / Volume Laterality 05/03/2007 11:56 05/04/2007 PM LAMBSKIN TRIMMER 12:03 AM LAMBSKIN TRIMMER Malachi Steele MD LAB - BLOOD ORDERABLES Performing Organization Address City/State/ZIP Code Phon e Number MISYS (ABNORMAL) Basic metabolic panel (05/03/2007 11:56 PM LAMBSKIN TRIMMER) Analysis Performed At Patho logist Time Signature [...] / Volume Laterality 05/03/2007 11:56 05/04/2007 PM LAMBSKIN TRIMMER 12:03 AM LAMBSKIN TRIMMER Malachi Steele MD LAB - BLOOD ORDERABLES Performing Organization Address [facility] Phon e Number MISYS UA macroscopic with reflex to micro (05/03/2007 11:50 PM LAMBSKIN TRIMMER) Patholo gist Method Time Signature Source Midstream MISYS Urine Color Urine Yellow MISYS Appearance Urine Clear MISYS Glucose Urine Negative NEG mg/dL MISYS Bilirubin Urine Negative NEG MISYS Ketones Urine Negative NEG mg/dL MISYS Specific [place] <=1.005 1.003 - MISYS Urine 1.035 Blood [...] / Volume Laterality 05/03/2007 11:50 05/04/2007 PM LAMBSKIN TRIMMER 12:03 AM LAMBSKIN TRIMMER Malachi Steele MD LAB - URINE ORDERABLES Performing Organization Address City/[facility] Phon e Number MISYS HCG qualitative urine (05/03/2007 11:50 PM LAMBSKIN TRIMMER) P athologist Signature HCG Qual Urine Negative NEG MISYS Specimen Anatomical Collection Method Collection Time Receive d Time (Source) Location / / Volume Laterality 05/03/2007 11:50 05/04/2007 PM LAMBSKIN TRIMMER 12:03 AM LAMBSKIN TRIMMER Malachi Steele MD LAB - URINE ORDERABLES Performing Organization Address City/[facility] Phon e Number MISYS documented in this encounter Visit Diagnoses Not on filedocumented in this encounter Care Teams Copy Technician Relationship Specialty Start Date End Date Morris Murray MD PCP - General 06/24/0410/19 documented as of this encounter
--- OUTSIDE RECORDS SUMMARY | 2022-02-13 08:15 | XMS_ITS | Encounter Summary ---
:1985 Author Organization [place] Address [address] [place] [address] Care Team Providers Name Role Phone Morris [...] as of this encounter Progress Notes Interface, Relocation Director - 08/12/2010 6:28 AM CDT Allergies ?? [...] on filedocumented in this encounter Care Teams Flexographic Press Helper Relationship Specialty Start Date End Date Morris Murray MD PCP - General 06/24/0410/19 documented as of this encounter
--- OUTSIDE RECORDS SUMMARY | 2022-02-13 08:15 | XMS_ITS | Encounter Summary ---
:1987 Author Organization [place] Address [facility] [place] [address] Care Team Providers Name Role Phone Sarah Montgomery PA-C Primary Care Provider [phone] Reason for Visit Reason Comments Repeat Pap Smear Contraception Pt c/o spotting on medicatio n - has not had a full period X2 months Encounter Details Date Type Department Care Team Description 06/30/2012 Office Visit [facility] Nadiya Bautista ption (Primary Dx); [facility] DO CHERYL [place] on Pap smear [place] [address] [facility] [address] [place], [place] [address] [address] [place], [place] [phone] [address] (Work) [phone] Social History Tobacco Use Types Packs/Day Years [...] Comments Blood Pressure 92/60 06/30/2012 8:54 AM TRAVEL OT Pulse - - Temperature - - Respiratory Rate - - Oxygen Saturation - - Inhaled Oxygen Concentration - - Weight 60.6 kg (133 lb 8 oz) 06/30/2012 8:54 AM TRAVEL OT Height 167.6 cm (5' 6) 06/30/2012 8:54 AM TRAVEL OT Body Mass Index 21.55 06/30/2012 8:54 AM TRAVEL OT documented in this encounter Patient Instructions Patient InstructionsNadiya Bautista DO - 06/30/2012 1:51 PM CST Return in 6 mo for pap EL OT documented in this encounter Progress Notes Nadiya Bautista DO - 06/30/2012 9:05 AM CST S: ELZBIETA 1 here for repeat pap smear O: BP 92/60 Ht 5' 6 (1.676 m) Wt 133 lb 8 oz (60.555 kg) BMI 21.55 kg/m2 SPINNER FRAME PELVIC: NEGATIVE, normal external genitalia, normal vaginal mucosa, normal cervix. Labs: pap is pending Assessment: 26 y/o with ELZBIETA 1 for surveillance Contraception: Desires to control that will not cause spotting Plan: Repeat pap pending Rx [facility] Dr. Nadiya Bautista DO Obstetrics and Gynecology [facility] EL OT documented in this encounter Nursing Notes 06/30/2012 [...] Pap smear Results for this LAYER, DIAGNOSTIC TRAVEL OT procedure are in the results section. HPV SCR W REF TO Routine 06/30/2012 12:00 AM Resu lts for this CONCHA ANAL PAP OR TRAVEL OT procedure a re in TISSUE the results section. documented in this encounter Results (ABNORMAL) PAP imaged thin layer, diagnostic (06/30/2012 10:30 AM TRAVEL OT) Component Value Ref Test Analysis Performed At [facility] Range Method Time Signature PAP ASC-US (A) COPATH Copath Report COPATH Patient Name: SHRUTI KIRKLAND MR#: [id number] Specimen #: [id number] Collected: 06/30/2012 Received: 07/01/2012 Reported: 07/05/2012 09:01 [...] Martina Villegas M.D. Processed and screened at [facility] CLINICAL HISTORY: Irregular periods, Previous abnormal pap: LSIL Date of Last Pap: 10/21/11, Papanicolaou Test Limitations: ??Cervical cytology is a scre ening test with limited sensitivity; regular screening is critical for cancer prevention; Pap tests are primarily effective for the diagnosis/prevention of squamous cell carcinoma, not adenoca rcinomas or other cancers. TESTING LAB LOCATION: [facility] [address] [place], [place] ??[address] COLLECTION SITE: Client: ??[facility] Location: RIOB (R) Specimen (Source) Anatomical Collection Method Collection Time Re ceived Time Location / / Volume Laterality Cytologic 06/30/2012 10:30 07/01/2012 material AM TRAVEL OT 11:06 AM TRAVEL OT (specimen) Nadiya Bautista DO LAB - OPTIME CLINICAL SPECIM EN Performing Organization Address City/State/ZIP Code Phon e Number COPATH HPV screen with reflex to genotype (06/30/2012 12:00 AM TRAVEL OT) Component Value Ref Test Analysis Performed At [facility] Range Method Time Signature Copath Report Patient Name: SHRUTI KIRKLAND MR#: [id number] Specimen #: [id number] Collected: 06/30/2012 00:00 Received: 07/06/2012 11:34 Reported: [...] en by capillary electrophoresis using a Qiagen 55social with Bio Calculator software. ??The PCR products [...] performance determined by sara copeland [facility] [place] ??[facility]. It has not been cleared or approved by the U.S. Food and Luis g Administration. ??The FDA has determined that such clearance or approval is not necessary. ??Pursuant to the requirements of CLIA'88, this laboratory has established and verified the test's accuracy and precision. ??This test is used for clinical purposes. Electronically Signed Out By: YOSEF Customer Security Clerk TESTING LAB LOCATION: [facility] [address] [facility] [address] [place] [id number] COLLECTION SITE: Client: ??[facility] Location: ??RIOB (R) Specimen (Source) Anatomical Collection Method Collection Time Re ceived Time Location / / Volume Laterality 06/30/2012 07/06/2012 11:3 4 AM TRAVEL OT Nadiya Bautista DO LAB - GENOMICS Performing Organization Address City/State/ZIP Code Phon e Number COPATH documented in this encounter Visit Diagnoses Diagnosis Contraception - Primary Unspecified contraceptive management LGSIL on Pap smear Papanicolaou smear of cervix with low gr angelo squamous intraepithelial lesion (LGSIL) documented in this encounter Care Teams Panel Edge Sealer Relationship Specialty Start Date End Date Sarah Montgomery PA-C PCP - General Family Practice 10/21/11 [address] [place] [address] documented as of this encounter
--- OUTSIDE RECORDS SUMMARY | 2022-02-13 08:15 | XMS_ITS | Encounter Summary ---
:1985 Author Organization [place] Address [address] [place] [address] Care Team Providers Name Role Phone Sarah Montgomery PA-C Primary Care Provider [phone] Reason for Visit Reason Comments Allied Health Visit depo Encounter Details Date Type Department Care Team Description 11/24/2011 Allied Health/Nurse Health [place] All ied Health Visit Visit [facility] [address] [place] [phone] Social History Tobacco Use Types Packs/Day [...] 11/24/2011 9:00 AM CDT >> GABI MARVIN [facility] Nov 24, 2011 9:08 AM The following medication was given: MEDICATION: Depo Provera 150mg ROUTE: IM SITE: Deltoid - Right DOSE: 1ml LOT #: [id number] Drafting Supervisor: [employer] EXPIRATION DATE: 07/2014 Next injection due February 08-February 22. Card given to patient Gabi Marvin ENAMEL PULVERIZER documented in this encounter Plan of Treatment Not on filedocumented as of this encounter Visit Diagnoses Diagnosis Contraception management - Primary Unspecified contraceptive management documented in this encounter Care Teams Sack Sewer Machine Relationship Specialty Start Date End Date Sarah Montgomery PA-C PCP - General Family Practice 10/21/11 [address] [place] [address] documented as of this encounter
--- OUTSIDE RECORDS SUMMARY | 2022-02-13 08:15 | XMS_ITS | Encounter Summary ---
:1985 Author Organization [place] Address [address] [place] [address] Care Team Providers Name Role Phone Morris Murray MD Primary Care Provider Unavailable Reason for Visit Reason Onset Date Comments Call to schedule test 06/12/2009 repeat pap Encounter Details Date Type Department Care Team Description 06/12/2009 Telephone [facility] Morris Murray Call to in hedule test Clinic Kiana Diallo MD (repeat pap) [address] [place] [address] Social History Tobacco Use Types [...] - Rec'd signed certified card, forwarded to [facility], copy given to Saumya-PROMOTIONS ASSISTANT. Telephone Encounter - Mindy Reyes - 08/07/2009 4:48 PM CDT 08/07/09 - Certified letter mailed 08/07/09. HIMS/bg. Telephone Encounter - Saumya Shaver - 08/07/2009 2:49 PM CDT Signature card not Received. Certified letter resent. Saumya Shaver RN Telephone Encounter - Mindy Reyes - 07/18/2009 2:54 PM CST - Letter mailed certified. HIMS/bg. HANDLER Telephone Encounter - Saumya Shaver - 07/16/2009 11:09 AM CST Certified repeat pap reminder letter sent. If no response after 2 weeks of receipt of signature card, resolve episode and close encounter. Saumya Shaver RN HANDLER Telephone Encounter - Saumya Shaver - 06/20/2009 10:25 AM CST Letter sent asking pt to call office. Saumya Shaver RN HANDLER Telephone Encounter - Poonam Begum, RN - 06/12/2009 9:31 AM CST LMOM for pt to return call to clinic. Due for repeat pap. Please assist in scheduling, thanks. Poonam Begum RN HANDLER documented in this encounter Plan of Treatment Not on filedocumented as of this encounter Visit Diagnoses Not on filedocumented in this encounter Care Teams Manager Appointment Relationship Specialty Start Date End Date Morris Murray MD PCP - General 06/24/0410/19 documented as of this encounter
--- OUTSIDE RECORDS SUMMARY | 2022-02-13 08:15 | XMS_ITS | Encounter Summary ---
:1985 Author Organization [place] Address [address] [place] [address] Care Team Providers Name Role Phone Sarah Montgomery PA-C Primary Care Provider Reason for Visit Reason Onset Date Comments Nurse Advice Line 09/15/2012 yeast Encounter Details Date Type Department Care Team Description 09/15/2012 Telephone [facility] Valentina, Nurse Advice Line [facility] [place] Sarah Aguilar PA-C (yeast) [address] [place] [phone] Social History Tobacco Use Types [...] on filedocumented in this encounter Care Teams Nuclear Scientist Relationship Specialty Start Date End Date Sarah Montgomery PA-C PCP - General Family Practice 10/21/11 [address] [place] [address] documented as of this encounter
--- OUTSIDE RECORDS SUMMARY | 2022-02-13 08:15 | XMS_ITS | Encounter Summary ---
:1985 Author Organization [place] Address [address] [place] [address] Care Team Providers Name Role Phone Sonny Murray MD Primary Care Provider Unavailable Encounter Details Date Type Department Care Team Description 09/01/2008 Office Visit [facility] Sonny MurrayIL on PA P Smear [facility] MD Yoel (Primary Dx) [place] [address] [place] [address] Social History Tobacco Use Types [...] Body Mass Index 23.05 07/13/2008 2:15 PM PROFESSOR OF BUSINESS documented in this encounter Progress Notes Sonny [...] Component Value Ref Test Analysis Performed At [facility] Method Time Signature Copath Report Patient Name: RHONDA KIRKLAND MR#: [id number] Specimen #: [id number] Collected: 09/01/2008 Received: 09/04/2008 Reported: 09/05/2008 15:13 [...] or malignan cy. COMMENT: Previous Pap. smear ([id number]) was positive for high grade s quamous [...] was performed. MGP/kd 09-05-08 TESTING LAB LOCATION: [address] ??[phone] COLLECTION SITE: Client: [facility] Location: RIOB (R) Specimen (Source) Anatomical [...] (HGSIL) documented in this encounter Care Teams Paper Sample Clerk Relationship Specialty Start Date End Date Sonny Murray MD PCP - General 06/24/0410/19 documented as of this encounter
--- OUTSIDE RECORDS SUMMARY | 2022-02-13 08:15 | XMS_ITS | Encounter Summary ---
:1985 Author Organization [place] Address [address] [facility] [place] [address] Care Team Providers Name Role Phone Sarah Montgomery PA-C Primary Care Provider [phone] Reason for Visit Reason Comments Abdominal Pain sharp pain at first then crap shooter mpy for 5 days--had positive home hcg--then took hcg last nigh t and it was negative--pt spotting since yesterday morning--stopped d epo in Jan.--wanting to go back on b/c pills Encounter Details Date Type Department Care Team Description 05/12/2012 Office Visit [facility] Nadiya Bautista Positive test (Primary Dx); [facility] DO [place] Abdominal pain; [place] [address] Contraception [address] [place], [place] [address] [address] [place], [place] [phone] [address] (Work) [phone] Social History Tobacco Use Types Packs/Day Years [...] Comments Blood Pressure 98/56 05/12/2012 10:19 AM DESIGN/ANIMATION INSTRUCTOR Pulse - - Temperature - - Respiratory Rate - - Oxygen Saturation - - Inhaled Oxygen Concentration - - Weight 60 kg (132 lb 4.8 oz) 05/12/2012 10:19 AM DESIGN/ANIMATION INSTRUCTOR Height - - Body Mass Index 21.35 01/19/2012 8:46 AM CDT documented in this encounter Patient Instructions Patient InstructionsNadiya Bautista DO - 05/12/2012 10:53 AM CST Return in a month for pap smear Ultrasound if pain persists control prescription GN/ANIMATION INSTRUCTOR documented in this encounter Progress Notes Nadiya [...] Relation Age of Onset ??? Heart Father ME at age 42 ??? Cancer Maternal Grandmother [...] Dr. Nadiya Bautista DO Obstetrics and Gynecology [facility] [place] GN/ANIMATION INSTRUCTOR documented in this encounter Nursing Notes 05/12/2012 [...] completed using cuff size: regular Hien Carty TEMPLATE REPRODUCTION TECHNICIAN documented in this encounter Plan of Treatment Not on filedocumented as of this encounter Procedures Procedure Name Priority Date/Time Associated Comments Diagnosis HCL HCG, URINE, Routine 05/12/2012 10:37 AM Positive Results for this NURSE BACKOFFICE DESIGN/ANIMATION INSTRUCTOR test procedure a re in the results section. documented in this encounter Results HCL HCG, URINE, NURSE BACKOFFICE (05/12/2012 10:37 AM DESIGN/ANIMATION INSTRUCTOR) P athologist Signature hCG, Qual negative [facility] BILLING Urine LAB Specimen (Source) Anatomical Collection Method Collection Time Re ceived Time Location / / Volume Laterality Urine specimen 05/12/2012 10:37 (specimen) AM DESIGN/ANIMATION INSTRUCTOR Nadiya Bautista DO LABORATORY Performing Organization Address City/State/ZIP Code Phon e Number [facility]ILL[facility] documented in this encounter Visit Diagnoses Diagnosis Positive test - Primary examination or test, positive result Abdominal pain Abdominal pain, unspecified site Contraception Unspecified contraceptive management documented in this encounter Care Teams Baton Teacher Relationship Specialty Start Date End Date Ronaldo-Sarah Doshi PA-C PCP - General Family Practice 10/21/11 [address] [place] [address] documented as of this encounter
--- OUTSIDE RECORDS SUMMARY | 2022-02-13 08:15 | XMS_ITS | Encounter Summary ---
:1985 Author Organization [place] Address [facility] [place] [address] Care Team Providers Name Role Phone Sarah Montgomery PA-C Primary Care Provider [phone] Reason for Visit Reason Onset Date Comments Abnormal Bleeding Problem 01/22/2012 ELZBIETA 1 Encounter Details Date Type Department Care Team Description 01/22/2012 Telephone [facility] Nadiya Bautista Abnormal Bleeding [facility] DO [place] Problem (ELZBIETA 1) [place] [address] [facility] [address] [place], [place] [address] [address] [place], [place] [phone] [address] (Work) [phone] Social History Tobacco Use Types Packs/Day Years [...] patient's call to number below. Rachell Peña Developmental Specialist Telephone Encounter - Annette White - 01/30/2012 9:52 AM CDT Left voice mail for patient to call back. [phone] ELZBIETA 1 on colposcopy Can have repeat [...] with above information Dr. Nadiya Bautista DO PEDIATRICIAN ACTIVE PRACTICE [facility] and [facility] documented in this encounter Plan of Treatment Not on filedocumented as of this encounter Visit Diagnoses Not on filedocumented in this encounter Care Teams Hairspring Studder Relationship Specialty Start Date End Date Sarah Montgomery PA-C PCP - General Family Practice 10/21/11 [address] [place] [address] documented as of this encounter
--- OUTSIDE RECORDS SUMMARY | 2022-02-13 08:15 | XMS_ITS | Encounter Summary ---
:1985 Author Organization [facility] Address [address] [place] [address] Care Team Providers Name Role Phone DoctorJuancho MD Primary Care Provider Unavailable Reason for Visit Reason Comments Pharyngitis Encounter Details Date Type Department Care Team Description 10/20/2002 Abstract [facility] Urgent Corazon Orozco Care Shyla Stone PA-C [address] [phone] [place] [address] [phone] (Wo rk) Social History Tobacco Use Types [...] on filedocumented in this encounter Care Teams Strawhat Blocking Operator Relationship Specialty Start Date End Date Juancho Johnston MD PCP - General 07/09/01 06/23/04 documented as of this encounter
--- OUTSIDE RECORDS SUMMARY | 2022-02-13 08:15 | XMS_ITS | Encounter Summary ---
:1985 Author Organization [place] Address [address] [place] [address] Care Team Providers Name Role Phone Morris Murray MD Primary Care Provider Unavailable Reason for Visit Reason Comments Ultrasound Encounter Details Date Type Department Care Team Description 07/02/2004 Orders Only [facility] Women's ME NSTRUAL DISORDER [facility] [place] (Primary Dx) [address] [place] [address] Social History Tobacco Use Types Packs/Day Years Used Date Never Smoker Alcohol Use Standard Drinks/Week Comments No 0 (1 standard drink = 0.6 oz pure alcoho l) Sex Assigned at Date Recorded Not on file documented as of this encounter Plan of Treatment Not on filedocumented as of this encounter Procedures Procedure Name Priority Date/Time Associated Diagnosis Comme [facility] US PELVIC NON-OB, Routine 07/02/2004 Menstrual Disorder N ec Results for this COMPLETE procedure are i n the results section . documented in this encounter Results SONO PELVIS COMPLETE (07/02/2004) Anatomical Region Laterality Modality Ultrasound Impressions 07/02/2004 Complete pelvic ultrasound utilizing both abdominal and vaginal transducers. ??Normal study. JULIOCESAR NARANJO MD Narrative 07/02/2004 ULTRASOUND - PELVIC APPLIED MATHEMATICIAN Referring MD: Morris Murray MD Primary Clinic: [facility] Ultrasound disk#: [id number] CLINICAL INFORMATION Indications for [...] Primary documented in this encounter Care Teams Crime Victim Specialist Relationship Specialty Start Date End Date Morris Murray MD PCP - General 06/24/0410/19 documented as of this encounter
--- OUTSIDE RECORDS SUMMARY | 2022-02-13 08:15 | XMS_ITS | Encounter Summary ---
:1985 Author Organization [facility] Address [address] [place] [address] Care Team Providers Name Role Phone Morris Murray MD Primary Care Provider Unavailable Encounter Details Date Type Department Care Team Description 05/03/2007 Emergency room Jayy Roth MD EMERGENCY PHYSIC [address] [phone] (Wo rk) Social History Tobacco Use Types Packs/Day Years Used Date Never Smoker Alcohol Use Standard Drinks/Week Comments No 0 (1 standard drink = 0.6 oz pure alcoho l) Sex Assigned at Date Recorded Not on file documented as of this encounter Progress Notes Jayy Roth - 05/11/2007 3:25 PM SANITATION INSPECTOR FINAL CHIEF COMPLAINT: Abdominal pain. HISTORY OF [...] MD MT: crys Name: RHONDA KIRKLAND Account: [id number] : 1985 Visit Date: 05/03/2007 Document: [id number] cc: Primary TATION INSPECTOR documented in this encounter Plan of Treatment Not on filedocumented as of this encounter Visit Diagnoses Not on filedocumented in this encounter Care Teams Art Manager Relationship Specialty Start Date End Date Morris Murray MD PCP - General 06/24/0410/19 documented as of this encounter
--- OUTSIDE RECORDS SUMMARY | 2022-02-13 08:15 | XMS_ITS | Encounter Summary ---
:1985 Author Organization [facility] Address [address] [place] [address] Care Team Providers Name Role Phone Sarah Montgomery PA-C Primary Care Provider Reason for Visit Reason Onset Date Comments Call Back 05/11/2012 abdominal pain Encounter Details Date Type Department Care Team Description 05/11/2012 Telephone [facility] Valentina, Call B ack (abdominal Clinic [place] Sarah Aguilar PA-C pain) [address] [place] [id number] [place] [phone] Social History Tobacco Use Types Packs/Day Years [...] 3:54 PM CST Physician triaged. Rachell Peña Director Medicaid ELECTRICIAN Telephone Encounter - Nadiya Bautitsa DO - 05/11/2012 4:33 PM AUTO ELECTRICIAN Reviewed, agree, Dr. Nadiya Bautista, Obstetrics and Gynecology [facility] ELECTRICIAN Telephone Encounter - Annette White - 05/11/2012 [...] pain on Advised pt to see an home energy inspector MD to r/o ectopic Pt placed on Dr. Bautista schedule on 05/11/[address] Bautista as an FYI. Annette White RN. ELECTRICIAN Telephone Encounter - Annette White - 05/11/2012 1:15 PM CST LEFT VM 4 PTCB A faint line would indicate hcg detection a hormone produced during . Pt to make an appt @ 10-12 weeks (unless she is high risk sooner) with MANAGER PHILOSOPHY. Keep appt with Dr. Maciel for abdominal pain, however abdominal pain should be assessed by RN for possibility of tubal . If sever pt to go to ER. US would need to be done to r/o tubal . Annette White RN. ELECTRICIAN Telephone Encounter - Rachell Peña - 05/11/2012 11:41 AM CST Name of caller: Rhonda Relationship to pt: self Reason for call: patient scheduled with Dr. Maciel and wondering if she needs to see OBGYN. Patient took test and was very faint. Patient wondering if she should keep appointment with provider. Best phone number to reach pt at is: [phone] Ok to leave a message with medical info? Pharmacy information: Rachell Peña Director Medicaid ELECTRICIAN documented in this encounter Plan of Treatment Not on filedocumented as of this encounter Visit Diagnoses Not on filedocumented in this encounter Care Teams Classification And Treatment Director Relationship Specialty Start Date End Date Sarah Montgomery PA-C PCP - General Family Practice 10/21/11 [address] [place] [address] documented as of this encounter
--- OUTSIDE RECORDS SUMMARY | 2022-02-13 08:15 | XMS_ITS | Encounter Summary ---
:1985 Author Organization [facility] Address [address] [place] [address] Care Team Providers Name Role Phone Morris Murray MD Primary Care Provider Unavailable Reason for Visit Reason Onset Date Comments Patient Request for Note/Letter 03/14/2009 Due for repeat pap/colpo Encounter Details Date Type Department Care Team Description 03/14/2009 Telephone [facility] Morris Murray Patient Re quest for Clinic Kiana Diallo MD Note/Letter (Due for [address] repeat pap/colpo) [place] [id number] Social History Tobacco Use Types Packs/Day Years [...] certified letter card back. Forwarded to [employer]. ODUCER Telephone Encounter - Saumya Shaver - 04/23/2009 8:18 AM CST Certified pap reminder letter sent to pt. If no response within 2 weeks of receipt of signature card, resolve episode and close encounter. Saumya Shaver, RN ODUCER Telephone Encounter - Poonam Begum RN - [...] on filedocumented in this encounter Care Teams Gravel Weigher Relationship Specialty Start Date End Date Morris Murray MD PCP - General 06/24/0410/19 documented as of this encounter
--- OUTSIDE RECORDS SUMMARY | 2022-02-13 08:15 | XMS_ITS | Encounter Summary ---
:1985 Author Organization [facility] Address [address] [place] [address] Care Team Providers Name Role Phone Morris Murray MD Primary Care Provider Unavailable Reason for Visit Reason Onset Date Comments Refill Request 06/16/2006 dhaval dawn Encounter Details Date Type Department Care Team Description 06/16/[address] [facility] Morris Murray, Ref ill Request ([facility] MD rich dawn) [address] [place] [address] Social History Tobacco Use Types Packs/Day Years Used Date Never Smoker Alcohol Use Standard Drinks/Week Comments No 0 (1 standard drink = 0.6 oz pure alcoho l) Sex Assigned at Date Recorded Not on file documented as of this encounter Miscellaneous Notes Telephone Encounter - Saumya Shaver - 06/19/2006 11:51 AM CST Patient advised of MD haley. Pt transferred to [facility] to schedule annual exam. Saumya Shaver RN CARBONIZER Telephone Encounter - Morris Murray - 06/19/2006 9:47 AM CST Please notify patient. Refill faxed, but she does needs a [facility] appointment prior to further refills. CARBONIZER Telephone Encounter - Adia Paniagua - 06/17/2006 11:37 AM CST Pharm faxing 2nd refill request. CARBONIZER Telephone Encounter - Adia Paniagua - 06/16/2006 10:40 AM CST Pharmacy faxing refill request. Last pap 06/27/05. CARBONIZER documented in this encounter Plan of Treatment Not on filedocumented as of this encounter Visit Diagnoses Not on filedocumented in this encounter Care Teams Biology Tutor Relationship Specialty Start Date End Date Morris Murray MD PCP - General 06/24/0410/19 documented as of this encounter"
--- OUTSIDE RECORDS SUMMARY | 2022-02-13 08:15 | XMS_ITS | Encounter Summary ---
:1985 Author Organization [facility] Address [address] [place] [address] Care Team Providers Name Role Phone Sonny Murray MD Primary Care Provider Unavailable Reason for Visit Reason Comments Spacer Type Bar And Segment Exam Encounter Details Date Type Department Care Team Description 06/29/2006 Office Visit [facility] Sonny Murray ROUTINE GY N [facility] MD Yoel EXAMINATION ( Primary [place] Dx) [address] [place] [address] Social History Tobacco Use Types Packs/Day Years Used Date Never Smoker Alcohol Use Standard Drinks/Week Comments No 0 (1 standard drink = 0.6 oz pure alcoho l) Sex Assigned at Date Recorded Not on file documented as of this encounter Last Filed Vital Signs Vital Sign Reading Time Taken Comments Blood Pressure 102/68 06/29/2006 6:00 PM FLIGHT AGENT Pulse - - Temperature - - Respiratory Rate - - Oxygen Saturation - - Inhaled Oxygen Concentration - - Weight 63.7 kg (140 lb 6.4 oz) 06/29/2006 6:00 PM FLIGHT AGENT Height 167.6 cm (5' 6) 06/29/2006 6:00 PM FLIGHT AGENT Body Mass Index 22.66 06/29/2006 6:00 PM FLIGHT AGENT Body Mass Index Percentile 63.54 % 06/29/2006 6:00 PM CS T Growth Chart: CDC (Girls, 2-20 Years) documented in this encounter Progress Notes Sonny Murray - 06/29/2006 6:23 PM CST SUBJECTIVE: Rhonda Kirkland is a 20 year old, single [...] and uterusantiverted. Extremities: Normal ASSESSMENT: Satisfactory annual medical staff physician exam. PLAN: 1) Pap smear 2) Mammography, lipids at appropriate intervals 3) Discussed HPV vaccination. 4) Bloating, raul PE: reviewed health maintenance including diet, regular exercise and periodic exams. HT AGENT documented in this encounter Nursing Notes 06/29/2006 [...] CL AFF Routine 06/29/2006 7:36 PM Routine Spacer Type Bar And Segment Results f or this N.GONORRHOEAE, DNA FLIGHT AGENT Examination procedure are in AMP PROBE the results section. CL AFF CHLMYD Routine 06/29/2006 7:36 PM Routine Spacer Type Bar And Segment Results for this TRACH, DNA, AMP FLIGHT AGENT Examination procedure ar e in PROBE the results section. HCL PAP THIN LAYER Routine 06/29/2006 12:00 AM Routine Spacer Type Bar And Segment Re sults for this SCREEN FLIGHT AGENT Examination procedure are i n the results section. documented in this encounter Results CHLMYD TRACH, DNA, AMP PROBE (06/29/2006 7:36 PM FLIGHT AGENT) Component Value Ref Test Analysis Performed At [facility] [employer] Method Time Signature Specimen Vagina [facility] LABS Chlamydia Negative for C. trachomatis rRNA by solid fiber paster operator mediated amplification. [facility] Trachomatis A negative result by transc ription mediated amplification does not preclude the [place] PCR presence of C. trachomatis infection because results are dependent on proper CAMPUS LABS and adequate collection, absence of inhibitors, and suffici ent rRNA to be detected. Specimen Anatomical Collection Method Collection Time Receive d Time (Source) Location / / Volume Laterality 06/29/2006 7:36 PM 7 7:41 FLIGHT AGENT PM FLIGHT AGENT Sonny Murray MD LABORATORY Performing Organization Address City/State/ZIP Code Phon e Number [facility] [address] [place], [place] [phone] [place] [address] LABS N.GONORRHOEAE, DNA, (GC) (06/29/2006 7:36 PM FLIGHT AGENT) Component Value Ref Test Analysis Performed At [facility] [employer] Range Method Time Signature Specimen Vagina [facility] LABS N Gonorrhea Negative for N. gonorrhoeae rRNA by solid fiber paster operator mediated amplification. [facility] PCR A negative result by transc ription mediated amplification does not preclude the [place] presence of N. gonorrhoeae infection because re sults are dependent on proper CAMPUS LABS and adequate collection, absence of inhibitors, and suffici ent rRNA to be detected. Specimen Anatomical Collection Method Collection Time Receive d Time (Source) Location / / Volume Laterality 06/29/2006 7:36 PM 7:41 FLIGHT AGENT PM FLIGHT AGENT Sonny Murray MD LABORATORY Performing Organization Address City/State/ZIP Code Phon e Number [facility] [address] [place], [place] [phone] [place] [address] LABS A THIN LAYER PAP SCREEN (06/29/2006 12:00 AM FLIGHT AGENT) Component Value Ref Test Analysis Performed At [facility] Range Method Time Signature PAP NIL COPATH Copath Report COPATH Patient Name: RHONDA KIRKLAND MR#: [id number] Specimen #: [id number] Collected: 06/29/2006 Received: 06/30/2006 Reported: 07/01/2006 10:54 [...] JOHNNIE Casiano (ASCP) Processed and screened at [facility], [facility] CLINICAL HISTORY: LMP: 1-18- Oral Control Pill, Previous normal pap Date of Last Pap: 06-27-05, TESTING LAB LOCATION: [address] ??[phone] COLLECTION SITE: Client: ??[facility] Location: RIOB (R) Specimen (Source) Anatomical Collection Method Collection Time Re ceived Time Location / / Volume Laterality 06/29/2006 06/30/2006 1:35 PM FLIGHT AGENT Sonny Murray MD LABORATORY Performing Organization Address City/State/ZIP Code Phon e Number [facility] documented in this encounter Visit Diagnoses Diagnosis Routine gynecological examination - Prim steve documented in this encounter Care Teams Crotch Piece Baster Relationship Specialty Start Date End Date Sonny Murray MD PCP - General 06/24/0410/19 documented as of this encounter
--- OUTSIDE RECORDS SUMMARY | 2022-02-13 08:15 | XMS_ITS | Encounter Summary ---
:1985 Author Organization [facility] Address [address] [place] [address] Care Team Providers Name Role Phone Morris Murray MD Primary Care Provider Unavailable Reason for Visit Reason Onset Date Comments Refill Request 03/25/2005 Encounter Details Date Type Department Care Team Description 03/25/2005 Refill [facility] Morris Murray MD Refill Request Clinic [address] [place] [address] Social History Tobacco Use Types Packs/Day Years Used Date Never Smoker Alcohol Use Standard Drinks/Week Comments No 0 (1 standard drink = 0.6 oz pure alcoho l) Sex Assigned at Date Recorded Not on file documented as of this encounter Miscellaneous Notes Telephone Encounter - Morris Murray - 03/25/2005 3:38 PM CST faxed [facility] Telephone Encounter - Saumya Shaver - 03/25/2005 10:09 AM CST Faxed refill request received. requesting supply for #[id number]. Last pap 06/24/04. [facility] documented in this encounter Plan of Treatment Not on filedocumented as of this encounter Visit Diagnoses Not on filedocumented in this encounter Care Teams Printer Assistant Relationship Specialty Start Date End Date Morris Murray MD PCP - General 06/24/0410/19 documented as of this encounter
--- OUTSIDE RECORDS SUMMARY | 2022-02-13 08:15 | XMS_ITS | Encounter Summary ---
:1985 Author Organization [facility] Address [address] [place] [address] Care Team Providers Name Role Phone Morris Murray MD Primary Care Provider Unavailable Encounter Details Date Type Department Care Team Description 05/04/2007 Results Only [facility] Se sara Roth MD [facility] EMERGENCY KADYY EZEKIEL PA Results [address] [place], [place] [address] (Wo rk) Social History [...] 1:57 AM Result s for this CONTRAST CNC WOOD LATHE OPERATOR procedure are i n the results section. documented in this encounter Results CT SCAN OF ABDOMEN CONTRAST (05/04/2007 1:57 AM CNC WOOD LATHE OPERATOR) Specimen (Source) Anatomical Collection Method Collection Time Re ceived Time Location / / Volume Laterality 05/04/2007 1:57 AM CNC WOOD LATHE OPERATOR Impressions RADIOLOGY RESULTS - 05/04/2007 10:36 AM CNC WOOD LATHE OPERATOR CT ABDOMEN AND PELVIS WITH CONTRAST ?? [...] on filedocumented in this encounter Care Teams Staff [employer] Officer Relationship Specialty Start Date End Date Morris Murray MD PCP - General 06/24/0410/19 documented as of this encounter
--- OUTSIDE RECORDS SUMMARY | 2022-02-13 08:15 | XMS_ITS | Encounter Summary ---
:1985 Author Organization [facility] Address [address] [place] [address] Care Team Providers Name Role Phone Leland Montgomery PA-C Primary Care Provider [phone] Reason for Visit Reason Comments Colposcopy 10/21/11 LSIL, HSIL in 2008 w / colp Encounter Details Date Type Department Care Team Description 01/19/2012 Office Visit [facility] Nadiya Bautista on Pap smear (Primary Dx); [facility]procedure [facility]; [address] [facility] [id number] [place] [address] [place] [address] [phone] Social History Tobacco Use Types Packs/Day Years [...] vessels AV No Suspect cancer Ca Yes [place] adequate The nature of abnormal paps and [...] valtrex called in. Dr. Nadiya Bautista DO PEDIATRICIAN ACTIVE PRACTICE [facility] documented in this encounter Nursing Notes [...] completed using cuff size: regular Keara Ledesma SENIOR DATA MINING ANALYST documented in this encounter Plan of Treatment [...] Component Value Ref Test Analysis Performed At [facility] Range Method Time Signature Copath Report Patient Name: SHRUTI KIRKLAND MR#: [id number] Specimen #: [id number] Collected: 01/19/2012 Received: 01/20/2012 Reported: 01/21/2012 13:41 [...] subjective spectrum. TJK/sz 01-21-12 TESTING LAB LOCATION: [address] ??[phone] COLLECTION SITE: Client: [facility] Location: LVOB (R) Specimen Anatomical Collection Method Collection Time Receive d Time (Source) Location / / Volume Laterality 01/19/2012 9:50 AM 2 8:14 CDT AM CDT Nadiya Paris Tillemans DO LAB - BEAKER AP Performing Organization Address City/State/ZIP Code Phon e Number [facility] HCG qualitative, urine (01/19/2012 8:47 AM CDT) P athologist Signature HCG Qual Urine Negative NEG [facility] Specimen Anatomical Collection Method Collection Time Receive d Time (Source) Location / / Volume Laterality Urine specimen 01/19/2012 8:47 AM 012 8:48 (specimen) CDT AM CDT Nadiya Bautista DO LAB - URINE ORDERABLES Performing Organization Address City/State/ZIP Code Phon e Number [facility] [address] [place] [address] [facility] documented in this encounter Visit Diagnoses Diagnosis Papanicolaou smear of cervix with low gr angelo squamous intraepithelial lesion (LGSIL) - Primary Pre-procedure lab exam Pre-procedural laboratory examination Recurrent herpes simplex Herpes simplex without mention of compli cation documented in this encounter Care Teams Radio Mechanic Relationship Specialty Start Date End Date Leland Montgomery PA-C PCP - General Family Practice 10/21/11 [address] [place] [address] documented as of this encounter
--- OUTSIDE RECORDS SUMMARY | 2022-02-13 08:15 | XMS_ITS | Encounter Summary ---
:1985 Author Organization [place] Address [facility] [place] [address] Care Team Providers Name Role Phone Leland Montgomery PA-C Primary Care Provider [phone] Reason for Visit Reason Comments Physical pap, discuss control Encounter Details Date Type Department Care Team Description 10/21/2011 [facility] at a health care facility (Primary Dx); Clinic Coleman Leland Aguilar PA-C Screen for STD (sexually transmitted dis ease); [address] [facility] [id number] [place] [address] control; [place], [place] Contraception management [phone] Social History Tobacco Use Types Packs/Day Years [...] These injections are given by a health child daycare worker. You must not be before getting an injection. The injection is usually given during the first 5 days after the start of a menstrual period or 6 weeks after delivery of a baby. Talk to your electrical design technician regarding the use of this medicine in children. Special care may be needed. These injections have been used in female children who have started having menstrual periods. Overdosage: If you think you have taken too much of this medicine contact a poison control center [facility] room at once. NOTE: This medicine is [...] risk for weak bones. Ask your health child daycare worker how you can keep strong bones. You may have a change in bleeding pattern or irregular periods. Many females stop having periods while taking this drug. If you have received your injections on time, your chance of being is very low. If you think you may be , see your health child daycare worker as soon as possible. Tell your health child daycare worker if you want to get within the next year. The effect of this medicine may last a long time after you get your last injection. What side effects may I notice from receiving this medicine? Side effects that you should report to your doctor or health child daycare worker as soon as possible: ?? allergic reactions [...] attention (report to your doctor or health child daycare worker if they continue or are bothersome): ?? acne ?? fluid retention and swelling ?? headache ?? irregular periods, spotting, or absent periods ?? temporary pain, itching, or skin reaction at site where injected ?? weight gain This list may not describe all possible side effects. Call your doctor for medical advice about sideeffects. You may report side effects to FDA at 7-731-GVV-7850. Where should I keep my medicine? This does not apply. The injection will be given to you by a health child daycare worker. NOTE:This sheet is a summary. It may [...] accordingly All Histories reviewed and updated in [facility]. ROS: C: NEGATIVE for fever, chills, [...] These injections are given by a health child daycare worker. You must not be before getting an injection. The injection is usually given during the first 5 days after the start of a menstrual period or 6 weeks after delivery of a baby. Talk to your electrical design technician regarding the use of this medicine in children. Special care may be needed. These injections have been used in female children who have started having menstrual periods. Overdosage: If you think you have taken too much of this medicine contact a poison control center [facility] room at once. NOTE: This medicine is [...] risk for weak bones. Ask your health child daycare worker how you can keep strong bones. You may have a change in bleeding pattern or irregular periods. Many females stop having periods while taking this drug. If you have received your injections on time, your chance of being is very low. If you think you may be , see your health child daycare worker as soon as possible. Tell your health child daycare worker if you want to get within the next year. The effect of this medicine may last a long time after you get your last injection. What side effects may I notice from receiving this medicine? Side effects that you should report to your doctor or health child daycare worker as soon as possible: ?? allergic reactions [...] attention (report to your doctor or health child daycare worker if they continue or are bothersome): ?? acne ?? fluid retention and swelling ?? headache ?? irregular periods, spotting, or absent periods ?? temporary pain, itching, or skin reaction at site where injected ?? weight gain This list may not describe all possible side effects. Call your doctor for medical advice about sideeffects. You may report side effects to FDA at 7-699-KDA-8630. Where should I keep my medicine? This does not apply. The injection will be given to you by a health child daycare worker. NOTE:This sheet is a summary. It may [...] make sure insurance covers it Renee Gold MACHINE STRIPPER >> RENEE Narayan October 21, 2011 9:45 [...] completed using cuff size: regular Renee Gold MACHINE STRIPPER Health maintenance Pt. Advised due of tetanus shot Renee Gold MACHINE STRIPPER documented in this encounter Plan of Treatment [...] Component Value Ref Test Analysis Performed At [facility] gist Range Method Time Signature Specimen [facility] LAB N Gonorrhea Negative for N. gonorrhoeae rRNA by glove brusher mediated amplification. [facility] PCR A negative result [...] Organization Address City/State/ZIP Code Phon e Number [facility] [address] [place], [place] [id number] [place] [address] LAB [facility] MICROBIOLOGY Chlamydia trachomatis PCR (10/21/2011 11:32 AM CDT) Component Value Ref Test Analysis Performed At [facility] [place] Method Time Signature Specimen [facility] LAB Chlamydia Negative for C. trachomatis rRNA by glove brusher mediated amplification. [facility] Trachomatis A negative result [...] Organization Address City/State/ZIP Code Phon e Number [phone] [place] [address] LAB [facility] MICROBIOLOGY (ABNORMAL) PAP IMAGED THIN LAYER SCREEN (10/21/2011 11:04 AM CDT) Component Value Ref Test Analysis Performed At [facility] SpotMe Range Method Time Signature PAP LSIL (A) COPATH Copath Report COPATH Patient Name: RHONDA KIRKLAND MR#: [id number] Specimen #: [id number] Collected: 10/21/2011 Received: 10/22/2011 Reported: 10/27/2011 07:02 [...] M.D. [facility] CLINICAL HISTORY: LMP: 09/30/11 Previous abnormal pap: HSIL Date of Last Pap: 06/19/08, Papanicolaou Test Limitations: ??Cervical cytology is a scre ening test with limited sensitivity; regular screening is critical for cancer prevention; Pap tests are primarily effective for the diagnosis/prevention of squamous cell carcinoma, not adenoca rcinomas or other cancers. TESTING LAB LOCATION: [facility] [address] [place], [place] ??[address] COLLECTION SITE: Client: ??[facility] Location: [facility] (R) Specimen (Source) Anatomical Collection Method Collection Time Re ceived Time Location / / Volume Laterality Cytologic 10/21/2011 11:04 10/22/2011 material AM CDT 10:45 AM CDT (specimen) Leland Montgomery PA-C LAB - OPTIME CLINICAL SPECIMEN Performing Organization Address City/State/ZIP Code Phon e Number COPATH HCG qualitative, urine (10/21/2011 10:14 AM CDT) P athologist Signature HCG Qual Urine Negative NEG [facility] LAB Specimen Anatomical Collection Method Collection Time Receive d Time (Source) Location / / Volume Laterality Urine specimen 10/21/2011 10:14 2 (specimen) AM CDT 10:16 AM CDT Leland Montgomery PA-C LAB - URINE ORDERABLES Performing Organization Address City/[facility]/ZIP Code Phon e Number [facility] [id number] [place] [address] [facility] LAB documented in this encounter Visit Diagnoses Diagnosis Routine general medical examination at a health care facility - Primary Screen for STD (sexually transmitted dis ease) Screening examination for venereal disea se control Unspecified contraceptive management Contraception management Unspecified contraceptive management documented in this encounter Care Teams Accounting Software Specialist Relationship Specialty Start Date End Date Leland Montgomery PA-C PCP - General Family Practice 10/21/11 [address] [place] [address] documented as of this encounter
== END 2022-02-13 08:10 | disposition home or self-care (01) ==
LOC: US 08:10
PROVIDERS: PCP Physician Assistant Medical; Visit Provider Obstetrics & Gynecology
DX: Z34.92 Encounter for supervision of normal pregnancy, unspecified, second trimester (principal); Z3A.20 20 weeks gestation of pregnancy
CPT/HCPCS: 76805

== ENCOUNTER 2022-04-14 10:34 | Outpatient (CLI) | payer BC, SELFPAY ==
--- OUTSIDE RECORDS SUMMARY | 2022-04-14 08:55 | XMS_ITS | Clinical Summary ---
:1985 Author Organization [place] Address [address] [place] [address] Care Team Providers Name Role Phone Sarah Montgomery PA-C Primary Care Provider Allergies Active Allergy Reactions Severity Noted Date Comments Seasonal Allergies 11/16/2014 Medications Medication Sig Dispensed Refills Start Date End Date Status [place]-3 Fatty Acids (FISH OIL) 500 0 Active [...] Problem list name updated by automated p rocess. Provider to review Immunizations Name Administration Dates Next Due HPV 06/19/2008 Influenza Vaccine IM > 6 months Valent IIV4 07/09/2016 (Alfuria,Fluzone) MMR 07/09/2016 TDAP Vaccine (Boostrix) 04/14/2016, 12/13/2012 Family History Medical History Relation Comments Depression Father Heart Disease Father HI at age 42 Diabetes Maternal Grandfather Breast Cancer Maternal Grandmother dx at age 62 Cancer Maternal Grandmother cervical and uterin e Diabetes Paternal Grandfather Cancer - colorectal No family hx of Relation Status Comments Brother 1 Alive Brother 2 Alive 2 step brothers (no relation) Father (Age 43) [place] Maternal Grandfather Alive Maternal Grandmother Alive Mother Alive Paternal Grandfather Alive Paternal Grandmother Alive Social History Tobacco Use Types Packs/Day Years Used Date Smoking Tobacco: Former Smokeless Tobacco: Never Tobacco Cessation: Counseling Given: No Comments: quit about 2013 Alcohol Use Standard Drinks/Week Comments Yes 0 (1 standard drink = 0.6 oz pure alcoho l) weekends-not more than 4 Sex Assigned at Date Recorded Not on file Last Filed Vital Signs Vital Sign Reading Time Taken Comments Blood Pressure 110/60 12/01/2020 1:33 PM CDT Pulse 92 12/01/2020 1:33 PM CDT Temperature 36.8 ??C (98.3 ??F) 12/01/2020 1:33 PM CDT Respiratory Rate 16 04/08/2018 3:00 PM ARTIFACTS CONSERVATOR Oxygen Saturation 97% 12/01/2020 1:33 PM CDT Inhaled Oxygen Concentration - - Weight 80.3 kg (177 lb) 12/01/2020 1:33 PM CDT Height 167.6 cm (5' 6) 05/05/2018 12:36 PM ARTIFACTS CONSERVATOR Body Mass Index 28.57 05/05/2018 12:36 PM ARTIFACTS CONSERVATOR Plan of Treatment Health Maintenance Due Date Last Done Comments ADVANCE CARE PLANNING 1985 ANNUAL REVIEW OF HM ORDERS 1985 COVID-19 Vaccine (#1) 05/01/1988 HEPATITIS C SCREENING 10/30/2005 YEARLY PREVENTIVE VISIT 08/20/2017 08/20/2016, 02/15/2014, 12/13/2012, Additional history [...] Addre ss Type Group [place] [id number] 2020-Prese [phone] [address] [address] Indemnity nt 0 [place] [address] [phone] (Home) W None (Work) Hortencia HEALY [phone] Care Teams Vice President Business Development Relationship Specialty Start Date End Date Sarah Montgomery PA-C PCP - General Family Practice 10/21/11 [address] [place] [address]
--- OUTSIDE RECORDS SUMMARY | 2022-04-14 08:55 | XMS_ITS | Encounter Summary ---
:1985 Author Organization [place] Address [address] [place] [address]. [place] [address] Care Team Providers Name Role Phone Sarah Montgomery PA-C Primary Care Provider Reason for Visit Reason Comments Urgent Care Cough chest hurts when coughs, run ny nose- 3 days Encounter Details Date Type Department Care Team Description 12/01/2020 Office Visit [facility] Michelle Patel Viral URI (Primary Dx); Urgent Care Philip Rios PA-C Throat pain [address] [place] [address] [id number] Social History Tobacco Use Types Packs/Day Years Used Date Smoking Tobacco: Former Smokeless Tobacco: Never Comments: quit about 2013 Alcohol Use Standard [...] Body Mass Index 28.57 05/05/2018 12:36 PM HARDWARE TEST ENGINEER documented in this encounter Patient Instructions Patient [...] secretions in the nose and lungs. ?? Odhm-spm-ufvqftp cold medicines will not shorten the length of time you???re sick, but they may be helpful for the following symptoms: cough, sore throat, and nasal and sinus congestion. If you takeprescription medicines, ask your healthcare provider or pharmacist which yplz-wck-dkswtqn medicines are safe to use. (Note: Don't [...] it goes along with a muffled voice Learnhive last reviewed this educational content on 10/23/2017 ?? 5330-2517 The [employer]. All rights reserved. This information is not [...] other patients: Results are usually available in hetras within 2 to 3 days. If you do not have a hetras account, you'll get a letter in the mail in about 7 to 10 days. Resiliencet is often the fastest way to get test results. Please sign up if you do not already have a hetras account. See the handout Getting COVID-19 Test Results in hetras for help. What if my test result is positive? If your test is positive and you have not viewed your result in Resiliencet, you'll get a phone call with your [...] results, please visit our testing website at [email or web address]. After 7 to 10 days, if you have not gotten your results: ?? Call ([phone]) and ask to speak with our COVID-19 [...] orwipes. You'll find a full list of configuration engineer on the EPA website: www.epa.gov/pesticide-registration/lis l-v-cqwhzsokrseby-wae-ebsjqve-sbjk-cov-2. ?? Cover your mouth and nose with [...] found in many medicines (both prescribed and zeqb-lma-gxyatxs medicines). Read all labels to be sure [...] Where can I get more information? ?? [facility] - About COVID-19: [email or web address] ?? CDC - If You're Sick: cdc.gov/coronavirus/2019-ncov/about/gfffi-ybez-otrm.html ?? CDC - Ending Home Isolation: www.cdc.gov/coronavirus/2019-ncov/hcp/vxtseankfel-qs-qtnd-patients.html ?? CDC - Caring for Someone: www.cdc.gov/coronavirus/2019-ncov/ja-vfu-cwu-sick/zufa-ugr-phdycwk.html ?? [facility] - Interim Guidance for Hospital Discharge to Home: www.health.[facility].ca.us/diseases/coronavirus/hcp/hospdischarge.pdf ?? [facility] clinical trials (COVID-19 research studies): clinicalaffairs.[facility]/qby-yypynqpj-vskwkq ?? Below are the COVID-19 hotlines at the Counts include 234 beds at the [facility] ([facility]). Interpreters are available. ? For health questions: Call [phone] or (7 a.m. to 7 p.m.) ? For questions about schools and childcare: Call [phone] or (7 a.m. to 7 p.m.) For informational purposes only. Not to replace the advice of your health care provider. Clinically reviewed by Infection Prevention and the [facility] COVID-19 Clinical Team. Copyright ?? 2019 [employer]. All rights reserved. SMARTworks 096142 - Rev 04/04/20. Patient Education Self-Care for [...] in??1/2 cup of warm water ?? An kzjj-ial-xrbszui anesthetic gargle Use medicine for more relief Sylp-smb-karuspz medicine can reduce sore throat symptoms. Ask [...] dizzy or faint ?? Feeling of doom Learnhive last reviewed this educational content on 01/23/2019 ?? 6590-3589 The [employer]. All rights reserved. This information is not [...] Symptoms failing to improve. Michelle Patel PA-C [facility] Ellis is a 35 year old female [...] (Coronavirus) by PCR (12/01/2020 1:38 PM CDT) [facility] Method Time Signature SARS-CoV-2 Nasopharyngeal 12/02/2020 INFECTIOUS Virus 11:19 AM DISEASES Specimen CDT DIAGNOSTIC Source LABORATORY, [facility] SARS-CoV-2 NEGATIVE 12/02/2020 INFECTIOUS PCR Result 11:19 AM DISEASES CDT DIAGNOSTIC LABORATORY, [facility] Comment: SARS-CoV2 (COVID-19) RNA not de tected, presumed negative. SARS-CoV-2 PCR Testing was performed using the [employer] SARS-CoV-2 Assay on the [employer] Instrument System. 12/02/2020 11:19 AM INFECTI OUS DISEASES Comment Additional information about this Emergency Use Authorization (EUA) assay can be found via CDT DIAGNOSTIC the Lab Guide. LABORATORY, [facility] Comment: This test should be ordered for [...] COVID-19. This test was validated by the [facility] Infectious Diseases Diagnostic Laboratory. This laboratory i [...] Phon e Number INFECTIOUS DISEASES DIAGNOSTIC [address] [facility] [address] [address] LABORATORY, [facility] Group A Streptococcus PCR Throat Swab (12/01/2020 1:38 PM CDT) [facility] Method Time Signature Specimen Throat 12/01/2020 [place] Description 2:01 PM CDT [facility] Strep Group A Not Detected NDET^Not 12/01/2020 [facility] PCR Detected 9:58 PM CDT [facility] Comment: Group A Streptococcus DNA is not detecte d. FDA approved assay performed using Newtron GeneXpert real-time PCR. Specimen Anatomical Collection Method Collection Time Receive d Time (Source) Location / / Volume Laterality Specimen from 12/01/2020 1:38 PM 12/02/19 21 1:39 throat CDT PM CDT (specimen) Karley Britton MD LAB - MICRO GENERAL ORDERABL ES Performing Organization Address City/State/ZIP Code Phon e Number [facility] [address] [place] [address] [facility] [address] [place], [place] [id number] Streptococcus A Rapid Scr w Reflx to PCR (12/01/2020 1:38 PM CDT) [facility] Method Time Signature Strep Specimen Throat 12/01/2020 [place] Description 1:39 PM CDT [facility] Streptococcus Negative NEG^Negat 12/01/2020 [place] Group A Rapid yovany 2:01 PM CDT [facility] Comment: No Group A streptococcal antigen detecte d by immunoassay. Confirmatory testing in progress. Specimen Anatomical Collection Method Collection Time Receive d Time (Source) Location / / Volume Laterality Specimen from 12/01/2020 1:38 PM 12/02/19 21 1:39 throat CDT PM CDT (specimen) Karley Britton MD LAB - MICRO GENERAL ORDERABL ES Performing Organization Address City/State/ZIP Code Phon e Number [facility] [address] [place] [address] Symptomatic COVID-19 Virus (Coronavirus) by PCR (12/01/2020 1:38 PM CDT) Component Value Ref Test Analysis Performed At [facility] gist Range Method Time Signature COVID-19 Nasopharyngeal 12/01/2020 [place] Virus PCR to 1:39 PM CDT CLINICS U [facility] Source COVID-19 Test received-See 12/01/2020 INFECTIOUS Virus PCR to reflex to IDDL 8:15 PM CDT DISEASES U [facility] - test SARS CoV2 DIAGNOSTIC Result (COVID-19) Virus LABORATORY, RT-PCR [facility] Specimen (Source) Anatomical Collection Method Collection Time Re ceived Time Location / / Volume Laterality Specimen from 12/01/2020 1:38 12/01/2020 nasopharyngeal PM CDT 1:39 PM CDT structure (specimen) Karley Britton MD LAB - MICRO GENERAL ORDERABL ES Performing Organization Address City/State/ZIP Code Phon e Number INFECTIOUS DISEASES DIAGNOSTIC [address] [facility] [address] LABORATORY, [facility] [address] [place] [address] documented in this encounter Visit Diagnoses Diagnosis [...] documented as of this encounter Care Teams Couturiere Relationship Specialty Start Date End Date Sarah Montgomery PA-C PCP - General Family Practice 10/21/11 [address] [place] [address] documented as of this encounter
--- OUTSIDE RECORDS SUMMARY | 2022-04-14 08:55 | XMS_ITS | Encounter Summary ---
:1985 Author Organization [place] Address [address] [place] [address] Care Team Providers Name Role Phone Sarah Montgomery PA-C Primary Care Provider [phone] Encounter Details Date Type Department Care Team [...] documented as of this encounter Care Teams Petroleum Terminal Plant Operator Relationship Specialty Start Date End Date Sarah Montgomery PA-C PCP - General Family Practice 10/21/11 [address] [place] [address] documented as of this encounter
--- OUTSIDE RECORDS SUMMARY | 2022-04-14 08:55 | XMS_ITS | Clinical Summary ---
:1985 Author Organization [employer] [facility] [place] [address] Care Team Providers Name Role Phone Clinic, No Pcp Or Primary Care Provider Unavailable Pcp, No Unavailable Unavailable Allergies No known active allergies Medications No known medications Active Problems No known active problems Immunizations Name Administration Dates Next Due DTaP 12/12/1991, 05/25/1989, 08/23/1988, 02/23/1988, 1985 Hepatitis B (Peds) 11/02/2000, 12/19/1999, 11/18/1999 Human Papilloma Virus Vaccine 06/19/2008 Inactivated Polio Vaccine 12/12/1991, 05/25/1989, 02/23/1988 , 1985 Influenza, IIV4 07/09/2016 MMR 07/09/2016, 11/18/1999, 01/23/1989 Td (Age >=7 Years) 11/18/1999 Tdap 04/14/2016, 12/13/2012 Social History Tobacco Use Types Packs/Day Years Used Date Former Smoker Cigarettes 2 Smokeless Tobacco: Never Used Tobacco Cessation: Counseling Given: Yes Comments: On & Off Alcohol Use Standard Drinks/Week Comments Yes 1.7 (1 standard drink = 0.6 oz pure alco hol) Sex Assigned at Date Recorded Not on file Obstetrics History Last Filed Vital Signs Vital Sign Reading Time Taken Comments Blood Pressure 116/84 09/19/2021 11:02 AM CDT Pulse 89 09/19/2021 11:02 AM CDT Temperature 37.1 ??C (98.7 ??F) 09/19/2021 11:02 AM CDT Respiratory Rate - - Oxygen Saturation 97% 09/19/2021 11:02 AM CDT Inhaled Oxygen Concentration - - Weight 63.5 kg (140 lb 1.6 oz) 12/01/2011 1:52 PM CDT Height - - Body Mass Index - - Plan of Treatment Health Maintenance Due Date Last Done Comments COVID-19 vaccine series (#1) 05/01/1988 Depression screening for age 12+ 1999 BMI (ht and wt on same day) for age 0610/30/2005 18+ Hepatitis C screening for age 18-79 10/30/2005 Pap test for age 21-65 08/18/2021 08/18/2018, 08/16/2018 Influenza for age 9-49 01/23/2022 07/09/2016 Tetanus booster 04/14/2026 04/14/2016, 12/13/2012, 11/18/1999 Tdap Completed 04/14/2016, 12/13/2012 Results Not on filefrom Last 3 Months Insurance Payer Benefit Plan / Subscriber ID Effective Dates Phone Addre ss Type Group BLUE CROSS BLUE CROSS OF [id number] 2020-Pres [address] [facility] [place] [id number] (Home) W [phone] [place], [place] (Work) [address] Care Teams Library Director Relationship Specialty Start Date End Date Clinic, No Pcp Or PCP - General 09/18/21 . Pcp, No 09/18/21 .
--- OUTSIDE RECORDS SUMMARY | 2022-04-14 08:56 | XMS_ITS | Encounter Summary ---
:1985 Author Organization [place] Address [address] [place] [address] Care Team Providers Name Role Phone Sarah Montgomery PA-C Primary Care Provider Sarah Montgomery PA-C Unavailable Sarah Montgomery PA-C Unavailable Reason for Visit Reason Comments Follow Up HP for SVT ablation Encounter Details Date Type Department Care Team Description 04/07/2018 Office Visit [facility] Quita Thacker [facility] AR[place] supraventric ular [place] SETTLEMENT AGENT tachycardia (H) (Primary [address] [place] [address] [facility] [address] [place], [place] [phone] Social History Tobacco Use Types Packs/Day Years Used Date Smoking Tobacco: Former Smokeless Tobacco: Never Alcohol Use Standard Drinks/Week Comments Yes 0 (1 standard drink = 0.6 oz pure alcoho l) weekends Sex Assigned at Date Recorded Not on file documented as of this encounter Last Filed Vital Signs Vital Sign Reading Time Taken Comments Blood Pressure 110/80 04/07/2018 3:16 PM PROJECT DEVELOPMENT ENGINEER Pulse 88 04/07/2018 3:16 PM PROJECT DEVELOPMENT ENGINEER Temperature - - Respiratory Rate - - Oxygen Saturation - - Inhaled Oxygen Concentration - - Weight 71.1 kg (156 lb 12.8 oz) 04/07/2018 3:16 PM PROJECT DEVELOPMENT ENGINEER Height 167.6 cm (5' 6) 04/07/2018 3:16 PM PROJECT DEVELOPMENT ENGINEER Body Mass Index 25.31 04/07/2018 3:16 PM PROJECT DEVELOPMENT ENGINEER documented in this encounter Patient Instructions Patient InstructionsStQuita thakur APRN CNP - 04/07/2018 3:10 PM PROJECT DEVELOPMENT ENGINEER As always, thank you for trusting us with your health care needs! If you have any questions regarding your visit please contact your care team: Cardiology Telephone Number Afib RNs: Thelma Vaca, and Shahnaz [phone] Call for Electrophysiology procedure scheduling concerns [phone] Device Clinic (Pacemakers, ICDs, Loop Recorders) RN's: Liz Diaz Lynda, MJ, Melvi Casanova During business hours: [phone] ECT DEVELOPMENT ENGINEER documented in this encounter Progress Notes Quita [...] any questions or concerns. Quita Thacker APRN, SETTLEMENT AGENT This note was completed in part using [employer] voice recognition software. Although reviewed after completion, some word and grammatical errors may occur. No orders of the defined types were placed in this encounter. No orders of the defined types were placed in this encounter. There are no discontinued medications. No diagnosis found. CURRENT MEDICATIONS: Current Outpatient Prescriptions Medication Sig Dispense Refill ??? fluticasone (FLONASE) 50 MCG/ACT spray [place] 1-2 sprays into both nostrils daily 16 [...] Age of Onset ??? HEART DISEASE Father AL at age 42 ??? Depression Father ??? [...] lives with boyfriend. 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 ECT DEVELOPMENT ENGINEER documented in this encounter Plan of Treatment Not on filedocumented as of this encounter Visit Diagnoses Diagnosis Paroxysmal supraventricular tachycardia (H) - Primary Paroxysmal supraventricular tachycardia documented in this encounter Additional Health Concerns Assessment Noted Time PHQ-9 Depression Total Score: 1 09/22/2017 7:43 AM CDT documented as of this encounter Care Teams Building Construction Contractor Relationship Specialty Start Date End Date Sarah Montgomery, PCP - General Family Practice 10/21/11 [place] [address] [place] [address] Sarah Montgomery PCP - Assigned PCP 07/27/18 [place] [address] [place] [address] Sarah Montgomery, Assigned PCP 03/15/17 10/17/20 [place] [address] [place] [address] documented as of this encounter
--- OUTSIDE RECORDS SUMMARY | 2022-04-14 08:56 | XMS_ITS | Encounter Summary ---
:1985 Author Organization [place] Address [address] [place] [address] Care Team Providers Name Role Phone Sarah Montgomery PA-C Primary Care Provider Sarah Montgomery PA-C Unavailable Sarah Montgomery PA-C Unavailable [phone] Reason for Visit Reason Onset Date Comments Clinic Care Coordination - Follow-up 04/09/2018 SVT Ablation Encounter Details Date Type Department Care Team Description 04/09/2018 Telephone [facility] Heart Thelma Bartholomew C linic Care Coordination Clinic Piper RN - Follow-up (SVT [address] Ablation) [facility] [address] [place] [address] Social History Tobacco Use Types [...] will work. No questions or concerns. JnelsonRN CHECKER documented in this encounter Plan of Treatment Not on filedocumented as of this encounter Visit Diagnoses Not on filedocumented in this encounter Additional Health Concerns Assessment Noted Time PHQ-9 Depression Total Score: 1 09/22/2017 7:43 AM CDT documented as of this encounter Care Teams Advertising Strategist Relationship Specialty Start Date End Date Sarah Montgomery, PCP - General Family Practice 10/21/11 [place] [address] [place], [place] [id number] Sarah Montgomery, PCP - Assigned PCP 07/27/18 [place] [address] [place] [place], [place] [id number] Sarah Montgomery, Assigned PCP 03/15/17 10/17/20 [facility] [address] [address] [place], [place] [id number] documented as of this encounter
--- OUTSIDE RECORDS SUMMARY | 2022-04-14 08:56 | XMS_ITS | Encounter Summary ---
:1985 Author Organization [place] Address [facility] [place] [address] Care Team Providers Name Role Phone Sarah Montgomery PA-C Primary Care Provider [phone] Reason for Visit Reason Comments Urgent Care Sinus Problem Sore throat for x2 weeks, R side facial pain and R ear, Myalgias, Sinus pressure, nasal congestion Encounter Details Date Type Department Care Team Description 12/21/2016 Office Visit [facility] Tobi, Karley Throat p ain (Primary Dx); Urgent Care Philip Anaya MD Acute sinusitis with symptoms > 10 days; [address] [facility] [address] Acute seasonal allergic [place] to [place] [address] [phone] Social History Tobacco Use Types Packs/Day Years Used Date Smoking Tobacco: Former Smokeless Tobacco: Never Alcohol Use Standard Drinks/Week Comments No 0 [...] documented in this encounter Patient Instructions Patient InstructionsKarley Britton MD - 12/21/2016 4:11 PM CDT Images [...] with drainage. Date Last Reviewed: 02/23/2016 ?? [phone] [facility]. [address] [place] [address]. All rights reserved. This information is not [...] a towel soaked in hot water. Or, personal financial planner theshower and direct the hot spray onto your face. Using a vaporizer along with a menthol rub at night may also help.? An??expectorant??containing guaifenesin may help thin the mucus and promote drainage from the sinuses. ?? Thsx-uiw-ebxamgu??decongestants??may be used unless a similar medicine was [...] decongestants. They can raise blood pressure.) ?? Dhle-kiz-kzxgwbw??antihistamines??may help if allergies contributed to your sinusitis. [...] 10 days Date Last Reviewed: 09/04/2014 ?? 0211-6361 [facility]. [address] [place] [address], [place] [address]. All rights reserved. This information is not [...] Diagnosis Date ??? abnormal pap 06/02, 09/2011 HSIL, colp neg, ':ELZBIETA I ??? Herpes valtrex ALLERGIES: Seasonal allergies [...] days - fluticasone (FLONASE) 50 MCG/ACT spray; [place] 1-2 sprays into both nostrils daily - [...] Ref Test Analysis Performed At [facility] Range Method Time Signature Specimen Throat ALLEN Description [facility] Culture Micro No beta ALLEN hemolytic [facility] Streptococcus [place] Group A isolated Micro Report FINAL 12/22/2016 ALLEN Status [facility] Specimen Anatomical Collection Method Collection Time Receive d Time (Source) Location / / Volume Laterality Specimen from 12/21/2016 3:57 PM 12/22/19 17 3:58 throat CDT PM CDT (specimen) Karley Britton MD LAB - MICRO GENERAL ORDERABL ES Performing Organization Address City/State/ZIP Code Phon e Number [facility] [address] [place] [address] Rapid strep screen (12/21/2016 3:57 PM CDT) Component Value Ref Test Analysis Performed At [facility] gist Range Method Time Signature Specimen Throat ALLEN Description [facility] Rapid Strep A NEGATIVE: No Group A strepto coccal antigen detected by immunoassay, await ALLEN Screen culture report. [facility] Micro Report FINAL 12/21/2016 ALLEN Status [facility] Specimen Anatomical Collection Method Collection Time Receive d Time (Source) Location / / Volume Laterality Specimen from 12/21/2016 3:57 PM 12/22/19 17 3:58 throat CDT PM CDT (specimen) Karley Britton MD LAB - MICRO GENERAL ORDERABL ES Performing Organization Address City/State/ZIP Code Phon e Number [facility] [address] [place] [address] documented in this encounter Visit Diagnoses Diagnosis Throat pain - Primary Acute sinusitis with symptoms > 10 days Acute sinusitis, unspecified Acute seasonal allergic rhinitis due to pollen documented in this encounter Additional Health Concerns Assessment Noted Time PHQ-9 Depression Total Score: 0 08/21/2016 7:15 AM CDT documented as of this encounter Care Teams Transfer Controller Relationship Specialty Start Date End Date Sarah Montgomery PA-C PCP - General Family Practice 10/21/11 [address] [place] [address] documented as of this encounter
--- OUTSIDE RECORDS SUMMARY | 2022-04-14 08:56 | XMS_ITS | Encounter Summary ---
:1985 Author Organization [place] Address [address] [place] [address] Care Team Providers Name Role Phone Sarah Montgomery PA-C Primary Care Provider Sarah Montgomery PA-C Unavailable [phone] Sarah Montgomery PA-C Unavailable Reason for Referral Consultation - Closed Specialty Diagnoses / Procedures Referred By Contact Refer red To Contact Diagnoses Rectal bleeding Sarah Montgomery [facility] [place] [facility] [address] [place] [address] [place] [address] Fax: Referral ID Status Reason Start Date Expiration Date Visits Requ ested Visits Authorized [id number] Closed 09/21/2017 09/21/2018 1 1 Reason for Visit Reason Comments Rectal Problem Encounter Details Date Type Department Care Team Description 09/21/2017 Office Visit [facility] Valentina Rectal bleeding (Primary Dx); [facility] [place] Sarah Aguilar PA-C Constipation, unspecified constipation t [facility] [address] [facility] [address] [place] [address] [phone] Social History Tobacco Use Types Packs/Day Years [...] 3 ??? fluticasone (FLONASE) 50 MCG/ACT spray [place] 1-2 sprays into both nostrils daily (Patient [...] co,onoscopy and GI referral Sarah Montgomery PA-C [facility] documented in this encounter Nursing Notes [...] documented as of this encounter Care Teams Electrical Laboratory Technician Relationship Specialty Start Date End Date Sarah Montgomery, PCP - General Family Practice 10/21/11 [place] [address] [place] [address] Sarah Montgomery PCP - Assigned PCP 07/27/18 [place] [address] [place] [address] Sarah Montgomery, Assigned PCP 03/15/17 10/17/20 [place] [address] [place] [address] documented as of this encounter
--- OUTSIDE RECORDS SUMMARY | 2022-04-14 08:56 | XMS_ITS | Encounter Summary ---
:1985 Author Organization [place] Address [address] [place] [address] Care Team Providers Name Role Phone Sarah Montgomery PA-C Primary Care Provider [phone] Sarah Montgomery PA-C Unavailable [phone] Sarah Montgomery PA-C Unavailable Encounter Details Date Type Department Care Team Description 04/07/2018 [facility] Nikkie Bartholomew, RN [place] [address] [place] [address] [address] [place] [address] Social History Tobacco Use Types [...] documented as of this encounter Care Teams Shellfish Bed Worker Relationship Specialty Start Date End Date Sarah Montgomery PCP - General Family Practice 10/21/11 [place] [address] [place] [address] Sarah Montgomery PCP - Assigned PCP 07/27/18 [place] [address] [place], [place] [id number] Sarah Montgomery, Assigned PCP 03/15/17 10/17/20 [place] [address] [place], [place] [phone] documented as of this encounter
--- OUTSIDE RECORDS SUMMARY | 2022-04-14 08:56 | XMS_ITS | Encounter Summary ---
:1985 Author Organization [place] Address [address] [place] [address] Care Team Providers Name Role Phone Sarah Montgomery PA-C Primary Care Provider [phone] Reason for Visit Reason Onset Date Comments Medication Request 09/16/2016 herpes outbreak Encounter Details Date Type Department Care Team Description 09/16/2016 Telephone [facility] Nadiya Bautista on Request Clinic [place] DO [place] (herpes outbreak) [address] [place] [id number] Social History Tobacco Use Types Packs/Day Years [...] Dr. Nadiya Bautista DO Obstetrics and Gynecology [facility] Telephone Encounter - Christine Colunga RN - [...] documented as of this encounter Care Teams Conveyor Line Battery Charger Relationship Specialty Start Date End Date Sarah Montgomery PA-C PCP - General Family Practice 10/21/11 [address] [place] [address] documented as of this encounter
--- OUTSIDE RECORDS SUMMARY | 2022-04-14 08:56 | XMS_ITS | Encounter Summary ---
:1985 Author Organization [place] Address [address] [place] [address]. [place] [address] Care Team Providers Name Role Phone Sarah Montgomery PA-C Primary Care Provider Reason for Visit Reason Onset Date Comments Forms 10/02/2016 [facility] Aeronautical Inspector Physician's Report Encounter Details Date Type Department Care Team Description 10/02/2016 Telephone [facility] Valentina, Forms ([facility] Sarah Aguilar PA-C Family Aeronautical Inspector [address] [place] [id number] [place] [address] Physician's Report) [place] [address] [phone] Social History Tobacco Use Types Packs/Day Years Used Date Smoking Tobacco: Former Smokeless Tobacco: Never Alcohol Use Standard Drinks/Week Comments No 0 (1 standard drink = 0.6 oz pure alcoho l) Sex Assigned at Date Recorded Not on file documented as of this encounter Miscellaneous Notes Telephone Encounter - Rachell Peña - 10/02/2016 3:05 PM CDT 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 Brought to front load trash truck driver. Sent to Osvaldo Peña Supervisor [employer] Telephone Encounter - Rachell Peña - 10/02/2016 1:52 PM CDT Form placed on PCP desk for review and completion. Rachell Peña Supervisor [employer] Telephone Encounter - Yasmeen Mccurdy - 10/02/2016 [...] clinic location was the form placed at?: [facility] Where the form was placed: [facility] What number is listed as a contact on the form?: No- Patient phone [phone] Additional comments: Patient will milk pickup driver the form as soon as is completed. Call taken on 10/02/2016 at 11:17 AM by Yasmeen Mccurdy documented in this encounter Plan of Treatment Not on filedocumented as of this encounter Visit Diagnoses Not on filedocumented in this encounter Additional Health Concerns Assessment Noted Time PHQ-9 Depression Total Score: 0 08/21/2016 7:15 AM CDT documented as of this encounter Care Teams Patient Assessment Coordinator Relationship Specialty Start Date End Date Ronaldo-Sarah Doshi PA-C PCP - General Family Practice 10/21/11 [address] [place] [address] documented as of this encounter
--- OUTSIDE RECORDS SUMMARY | 2022-04-14 08:56 | XMS_ITS | Encounter Summary ---
:1985 Author Organization [place] Address [address] [place] [address] Care Team Providers Name Role Phone Sarah Montgomery PA-C Primary Care Provider Sarah Montgomery PA-C Unavailable Sarah Montgomery PA-C Unavailable [phone] Reason for Referral CV Testing - Closed Specialty Diagnoses / Procedures Referred By Contact Refer red To Contact Cardiology Diagnoses CARDIOVASCULAR SCREENING; LDL GOAL LESS THAN 160 Palpitations Morris Villafuerte MD [facility] Cardiac Test [facility] Procedures Cardiac Event Monitor - Peds/Adult [address] [address] [place] [id number] [place] [address] Phone: Fax: Referral ID Status Reason Start Date Expiration Date Visits Requ ested Visits Authorized [id number] Closed 10/19/2017 10/19/2018 1 1 Reason for Visit CV Testing - Closed Specialty Diagnoses / Procedures Referred By Contact Refer red To Contact Cardiology Diagnoses CARDIOVASCULAR SCREENING; LDL GOAL LESS THAN 160 Palpitations Morris Villafuerte MD [facility] Cardiac Test Rs Procedures Cardiac Event Monitor - Peds/Adult [address] [address] [place] [id number] [place] [address] Phone: Fax: Referral ID Status Reason Start Date Expiration Date Visits Requ ested Visits Authorized [id number] Closed 10/19/2017 10/19/2018 1 1 Encounter Details Date Type Department Care Team Description 11/11/2017 Hospital Encounter [facility] Morris Villafuerte IOVASCULAR SCREENING; LDL GOAL LESS THAN 160; Care Center MD Veronique Palpitations [address] [place] [address] [facility] [address] [facility] [address] [place] [address] Social History Tobacco Use Types Packs/Day Years Used Date Smoking Tobacco: Former Smokeless Tobacco: Never Alcohol Use Standard Drinks/Week Comments Yes 0 (1 standard drink = 0.6 oz pure alcoho l) weekends Sex Assigned at Date Recorded Not on file documented as of this encounter Medications at Time of Discharge Medication Sig Dispensed Refills Start Date End Date fluticasone (FLONASE) 50 [place] 1-2 sprays 16 g 0 12/2112/01/2020 MCG/ACT [...] (12/10/2017) Narrative [facility] - 12/10/2017 [facility] [address] [facility] [address] [facility] [address] 11/11/2017 Patient: ??Rhonda Patel [place] Chart: [id number] : ??1985 Age: ??32 year old Sex: ??female Procedure: ??Event Monitor Placed: Pleas e see scanned document for result once interpretation is completed. Supervisor Sandblaster performing hook-up: ??Stephan Lizama Morris Villafuerte MD CV CARDIAC SERVICES ORDERABL ES Performing Organization Address City/State/ZIP Code Phon e Number [facility] documented in this encounter Visit Diagnoses Diagnosis CARDIOVASCULAR SCREENING; LDL GOAL LESS THAN 160 Palpitations documented in this encounter Additional Health Concerns Assessment Noted Time PHQ-9 Depression Total Score: 1 09/22/2017 7:43 AM CDT documented as of this encounter Care Teams Mill Roll Operator Relationship Specialty Start Date End Date Sarah Montgomery, PCP - General Family Practice 10/21/11 [place] [address] [place] [address] Sarah Montgomery, PCP - Assigned PCP 07/27/18 [place] [address] [place] [address] Sarah Montgomery, Assigned PCP 03/15/17 10/17/20 [place] [address] [place] [address] documented as of this encounter
--- OUTSIDE RECORDS SUMMARY | 2022-04-14 08:56 | XMS_ITS | Encounter Summary ---
:1985 Author Organization [place] Address [address] [place] [address] Care Team Providers Name Role Phone Sarah Montgomery PA-C Primary Care Provider Sarah Montgomery PA-C Unavailable Sarah Montgomery PA-C Unavailable Encounter Details Date Type Department Care Team Description 04/08/2018 Hospital Encounter [facility] Tejal Roblero SVT [facility] MD [place] (supraventricular Suites [address] tachycardia) (H) [address] [place] [address] [phone] Social History Tobacco Use Types Packs/Day Years [...] Comments Blood Pressure 103/80 04/08/2018 3:00 PM COMMUNICATIONS EQUIPMENT OPERATOR Pulse 81 04/08/2018 3:00 PM COMMUNICATIONS EQUIPMENT OPERATOR Temperature 36.8 ??C (98.3 ??F) 04/08/2018 6:41 AM COMMUNICATIONS EQUIPMENT OPERATOR Respiratory Rate 16 04/08/2018 3:00 PM COMMUNICATIONS EQUIPMENT OPERATOR Oxygen Saturation 96% 04/08/2018 12:30 PM COMMUNICATIONS EQUIPMENT OPERATOR Inhaled Oxygen Concentration - - Weight 71.7 kg (158 lb) 04/08/2018 6:41 AM COMMUNICATIONS EQUIPMENT OPERATOR Height 167.6 cm (5' 6) 04/08/2018 6:41 AM COMMUNICATIONS EQUIPMENT OPERATOR Body Mass Index 25.5 04/08/2018 6:41 AM COMMUNICATIONS EQUIPMENT OPERATOR documented in this encounter Discharge Instructions [...] lay flat for 2 hours. ??? Call [facility] Heart Clinic as soon as you can. [...] The irregular beats should occur less often. [facility]: [phone] ( 8am-5pm M-F) Lio Renee or Shahnaz [phone] [facility] (7 days a week) UNICATIONS EQUIPMENT OPERATOR documented in this encounter Medications at Time of Discharge Medication Sig Dispensed Refills Start Date End Date fluticasone (FLONASE) 50 [place] 1-2 sprays 16 g 0 12/2112/01/2020 MCG/ACT sprayIndications: into both nostrils Acute sinusitis with daily symptoms > 10 days LORazepam (ATIVAN) 1 MG Take 1 mg by mouth 0 05/05/2018 tablet every 6 hours as needed for anxiety valACYclovir (VALTREX) Take 1 tablet (500 6 tablet 3 05/02 /2018 12/01/2020 500 MG tabletIndications: mg) by mouth 2 [...] ride with per wc with all belongings. Crys Carrasco RN - 04/08/2018 2:41 PM CST Got up of bed at 1430 and oozed from groin right away. 5 min of manual pressure- page out to Dr Roblero. Will plan 1 more hour of bedrest. See flow sheet. Report given to Chavez HOPKINS Rosetta López RN - 04/08/2018 1:20 PM CST 1215 [...] flow sheet. Ate. On bedrest til 1430. Crys Carrasco RN - 04/08/2018 7:41 AM CST Sent web page to Dr Roblero with K+ 3.4. UNICATIONS EQUIPMENT OPERATOR Crys Enrique RN - 04/08/2018 7:16 AM CST Heart tones normal, no femoral bruit. Here with her mom. Explained pre Ablation and answered questions. Does not want to see Ablation video. Resting in bed with call light in reach. UNICATIONS EQUIPMENT OPERATOR documented in this encounter Procedure Notes [...] brought to the Cardiac Electrophysiology Laboratory at [facility] on 04/08/2018. I determined this patient to [...] AV node. 3. No apparent in-lab complication. UNICATIONS EQUIPMENT OPERATOR documented in this encounter Plan of Treatment Not on filedocumented as of this encounter Procedures Procedure Name Priority Date/Time Associated Comments Diagnosis H ABLATION SVT Routine 04/08/2018 9:43 AM SVT Results for this COMMUNICATIONS EQUIPMENT OPERATOR (supraventricular procedure are in tachycardia) (H) the results section. EKG 12-LEAD, TRACING STAT 04/08/2018 7:04 AM R esults for this ONLY COMMUNICATIONS EQUIPMENT OPERATOR procedure are i n the results section. HCG QUANTITATIVE STAT 04/08/2018 6:53 AM SVT Resul ts for this COMMUNICATIONS EQUIPMENT OPERATOR (supraventricular procedure are in tachycardia) (H) the results section. BASIC METABOLIC PANEL STAT 04/08/2018 6:53 AM SVT Results for this COMMUNICATIONS EQUIPMENT OPERATOR (supraventricular procedure are in tachycardia) (H) the results section. CBC WITH PLATELETS STAT 04/08/2018 6:53 AM SVT Res ults for this COMMUNICATIONS EQUIPMENT OPERATOR (supraventricular procedure are in tachycardia) (H) the results section. documented in this encounter Results EP Ablation SVT (04/08/2018 9:43 AM COMMUNICATIONS EQUIPMENT OPERATOR) Anatomical Region Laterality Modality Other Specimen (Source) Anatomical Location Collection Method / Collectio n Time Received Time / Laterality Volume Narrative 04/08/2018 10:29 AM COMMUNICATIONS EQUIPMENT OPERATOR Breanna Roblero MD ? 04/08/2018 10:29 [...] to the Cardiac E lectrophysiology Laboratory at [facility] on 04/08/2018. ??I determined this patient [...] For mapping and ablation we used a 99Presents [employer] catheter with F/J curve and 4 [...] EKG 12-lead, tracing only (04/08/2018 7:04 AM COMMUNICATIONS EQUIPMENT OPERATOR) Patholo gist Method Time Signature Interpretation ECG Click View RADIOLOGY Image link RESULTS to view waveform and result Specimen (Source) Anatomical Collection Method Collection Time Re ceived Time Location / / Volume Laterality 04/08/2018 7:04 AM COMMUNICATIONS EQUIPMENT OPERATOR Breanna Roblero MD ECG ORDERABLES Performing Organization Address City/State/ZIP Code Phon e Number RADIOLOGY RESULTS HCG quantitative (04/08/2018 6:53 AM COMMUNICATIONS EQUIPMENT OPERATOR) P athologist Signature HCG Quantitative <1 0 - 5 IU/L 04/08/2018 [place] Serum 7:23 AM COMMUNICATIONS EQUIPMENT OPERATOR [facility] Specimen Anatomical Collection Method Collection Time Receive d Time (Source) Location / / Volume Laterality Blood specimen 04/08/2018 6:53 AM 018 6:54 (specimen) COMMUNICATIONS EQUIPMENT OPERATOR AM COMMUNICATIONS EQUIPMENT OPERATOR Breanna Roblero MD LAB - BLOOD ORDERABLES Performing Organization Address City/State/ZIP Code Phon e Number M [facility] [address] [address] [phone] [facility] [address] [address], [facility] [phone] CBC with platelets (04/08/2018 6:53 AM COMMUNICATIONS EQUIPMENT OPERATOR) athologist Signature WBC 5.8 4.0 - 11.0 04/08/2018 [place] 10e9/L 7:01 AM [facility] RBC Count 4.51 3.8 - 5.2 04/08/2018 [facility] 10e12/L 7:01 AM [facility] Hemoglobin 14.1 11.7 - 04/08/2018 [facility] 15.7 g/dL 7:01 AM [facility] Hematocrit 41.1 35.0 - 04/08/2018 [facility] 47.0 % 7:01 AM [facility] MCV 91 78 - 100 04/08/2018 [facility] fl 7:01 AM [facility] MCH 31.3 26.5 - 04/08/2018 [facility] 33.0 pg 7:01 AM [facility] MCHC 34.3 31.5 - 04/08/2018 [facility] 36.5 g/dL 7:01 AM [facility] RDW 12.6 10.0 - 04/08/2018 [facility] 15.0 % 7:01 AM [facility] Platelet Count 283 150 - 450 04/08/2018 [facility] 10e9/L 7:01 AM [facility] Specimen Anatomical Collection Method Collection Time Receive d Time (Source) Location / / Volume Laterality Blood specimen 04/08/2018 6:53 AM 018 6:54 (specimen) COMMUNICATIONS EQUIPMENT OPERATOR AM COMMUNICATIONS EQUIPMENT OPERATOR Breanna Roblero MD LAB - BLOOD ORDERABLES Performing Organization Address City/State/ZIP Code Phon e Number M [facility] [address] [address] [facility] [address] [address], [place] [phone] (ABNORMAL) Basic metabolic panel (04/08/2018 6:53 AM [facility] [[email or web address] athologist Signature Sodium 137 133 - 144 04/08/2018 [place] mmol/L 7:20 AM [facility] Potassium 3.4 3.4 - 5.3 04/08/2018 [place] mmol/L 7:20 AM [facility] Chloride 105 94 - 109 04/08/2018 [place] mmol/L 7:20 AM [facility] Carbon Dioxide 26 20 - 32 04/08/2018 [place] mmol/L 7:20 AM [facility] Anion Gap 6 3 - 14 04/08/2018 [place] mmol/L 7:20 AM [facility] Glucose 74 70 - 99 04/08/2018 [place] mg/dL 7:20 AM [facility] Urea Nitrogen 11 7 - 30 04/08/2018 [place] mg/dL 7:20 AM [facility] Creatinine 0.80 0.52 - 04/08/2018 [place] 1.04 mg/dL 7:20 AM [facility] GFR Estimate 84 >60 04/08/2018 [place] mL/min/1.7 7:[address] Comment: Non GFR Calc GFR Estimate If >90 >60 mL/min/1.7m2 04/08/2018 7:20 A [facility] Comment: GFR Calc Calcium 8.3 (L) 8.5 - 10.1 mg/dL 04/08/2018 7:20 AM [facility] Specimen Anatomical Collection Method Collection Time Receive d Time (Source) Location / / Volume Laterality Blood specimen 04/08/2018 6:53 AM 018 6:54 (specimen) COMMUNICATIONS EQUIPMENT OPERATOR AM [facility] [[email or web address]] Breanna Roblero MD LAB - BLOOD ORDERABLES Performing Organization Address City/State/ZIP Code Phon e Number M [facility] [address] [address] [place] [address] [address] [place], [place] [address], U [phone] documented in this encounter Visit Diagnoses Diagnosis SVT (supraventricular tachycardia) (H) Other specified cardiac dysrhythmias documented in this encounter Administered Medications Inactive Administered Medications - up to 3 most recent administrations Medication Order MAR Action Action Date Dose Rate Site 0.45% sodium chloride infusion New Bag 04/08/2018 7:12 AM COMMUNICATIONS EQUIPMENT OPERATOR 30 mL/hr at 30 mL/hr, Intravenous, CONTINUOUS, Start 2 hours pre-procedure and then per provider direction intra-procedure. Pre-procedurally for CAR electrophysiology studies., Cardiac Pre-procedure, Starting on Mackenzie 04/08/18 at 0645, Until Mackenzie 04/08/18 at 1023 acetaminophen (TYLENOL) tablet 650 mg Given 04/08/2018 3:06 PM COMMUNICATIONS EQUIPMENT OPERATOR 650 mg 650 mg, Oral, EVERY 4 HOURS PRN, mild pain, fever, Starting on Mackenzie 04/08/18 at 1026, Post-procedurally for CAR electrophysiology studies. Maximum acetaminophen dose from all sources = 75 mg/kg/day not to exceed 4 grams/day., Cardiac Post-procedure fentaNYL (PF) (SUBLIMAZE) injection 25-50 Given 04/08/2018 10:05 AM COMMUNICATIONS EQUIPMENT OPERATOR 50 mcg mcg 25-50 mcg, Intravenous, [...] minutes., Cardiac Intra-procedure Given 04/08/2018 9:30 AM COMMUNICATIONS EQUIPMENT OPERATOR 50 mcg Given 04/08/2018 9:25 AM COMMUNICATIONS EQUIPMENT OPERATOR 50 mcg isoproterenol (ISUPREL) 1 mg [...] mcg/min 30 mL/hr 200 mcg/50 mL pre-mix COMMUNICATIONS EQUIPMENT OPERATOR 0.5-20 mcg/min (7.5-300 mL/hr), Intravenous, CONTINUOUS PRN, when verbally ordered by the provider during the procedure. Titrate up as directed by the provider., Starting on Mackenzie 04/08/18 at 0957, Protect from light., Cardiac Intra-procedure Restarted 04/08/2018 9:50 AM COMMUNICATIONS EQUIPMENT OPERATOR 1 mcg/min 15 mL/hr New Bag 04/08/2018 9:39 AM COMMUNICATIONS EQUIPMENT OPERATOR 1 mcg/min 15 mL/hr lidocaine (LMX4) [...] % Given by Other 04/08/2018 8:48 AM COMMUNICATIONS EQUIPMENT OPERATOR 15 mLs injection 10-30 mL 10-30 [...] injection 0.5-2 mg Given 04/08/2018 10:05 AM COMMUNICATIONS EQUIPMENT OPERATOR 1 mg 0.5-2 mg, Intravenous, Administer [...] NS., Cardiac Intra-procedure Given 04/08/2018 9:45 AM COMMUNICATIONS EQUIPMENT OPERATOR 1 mg Given 04/08/2018 9:30 AM COMMUNICATIONS EQUIPMENT OPERATOR 1 mg naloxone (NARCAN) injection 0.1-0.4 [...] (K-DUR/KLOR-CON M) CR Given 04/08/2018 2:38 PM COMMUNICATIONS EQUIPMENT OPERATOR 20 mEq tablet 20 mEq 20 [...] Recently Administered Medications Times are shown in COMMUNICATIONS EQUIPMENT OPERATOR. Scheduled Medication Order 04/06/2018 04/07/2018 04/08/2018 potassium chloride SA (K-DUR/KLOR-CON M) CR tablet 20 mEq (COMPL ETED) 1438 (Given - Provider: Annabelle Peterson, KELLIE) 20 mEq, Oral, ONCE, Mackenzie 04/08/18 at [...] Joya, KELLIE)0930 (Given - Provider: Davie Joya, RN)1005 (Given - Provider: Davie Joya, KELLIE) 25-50 mcg, Intravenous, EVERY 2 MIN PRN, [...] 0848 (Given by Other - Provider: Davie Joya RN) 10-30 mL, Intradermal, ONCE PRN, for imp [...] (CANCELED) 0845 (Given - Provider: Davie Joya, RN)0915 (Given - Provider: aDvie Joya, RN)0925 (Given - Provider: Davie Joya, RN)0930 (Given - Provider: Davie Joya, RN)0945 (Given - Provider: Davie Joya, RN) 0.5-2 mg, Intravenous, Administer over 2 Minutes, EVERY 2 MIN PRN, Starting Mackenzie 04/08/18 at 0841, sedation, when verbally ordered by the provider during the procedure., Doses can be exceeded under [facility] 1005 (Given - Provider: Davie Joya, KELLIE) [...] as of this encounter Care Teams Metal Sorter Relationship Specialty Start Date End Date Sarah Montgomery, PCP - General Family Practice 10/21/11 [place] [address] [place], [place] [id number] Sarah Montgomery, PCP - Assigned PCP 07/27/18 [place] [address] [place] [address] Sarah Montgomery, Assigned PCP 03/15/17 10/17/20 [place] [address] [place] [address] documented as of this encounter
--- OUTSIDE RECORDS SUMMARY | 2022-04-14 08:56 | XMS_ITS | Encounter Summary ---
:1985 Author Organization [place] Address [address] [place] [address] Care Team Providers Name Role Phone Sarah Montgomery PA-C Primary Care Provider [phone] Reason for Visit Reason Comments Post Exam Encounter Details Date Type Department Care Team Description [facility] DO Prais Encounter for initial prescription of co ntraceptive pills; [address] Screening for malignant neop lasm of cervix [address] [phone] [address] (Work) [phone] Social History Tobacco Use Types Packs/Day Years Used Date Smoking Tobacco: Former Smokeless Tobacco: Never Tobacco Cessation: Counseling Given: No Alcohol Use [...] Body Mass Index 25.1 07/07/2016 12:34 AM RN MANAGED CARE documented in this encounter Patient Instructions Patient InstructionsNadiya Bautista DO - 08/20/2016 2:00 PM CDT Start Oral Contraceptive today , use back-up method for [address] Nadiya Bautista DO Obstetrics and Gynecology [facility] [place] documented in this encounter Progress Notes [...] behalf by Lupe Lassiter, a trained medical instructor. The creation of this document is based the provider's statements to the medical instructor. Lupe Lassiter August 20, 2016 2:18 PM [...] in this document, created by the medical instructor for me, accurately reflects the services I personally performed and the decisions made by me. I have reviewed and approved this document for accuracy prior to leaving the patient care area. 08/20/2016 2:[address] Nadiya Bautista DO METHODS ANALYST DATA PROCESSING [facility] documented in this encounter Miscellaneous Notes [...] Component Value Ref Test Analysis Performed At [facility] Range Method Time Signature PAP NIL COPATH Copath Report COPATH Patient Name: SHRUTI KIRKLAND MR#: [id number] Specimen #: [id number] Collected: 08/20/2016 Received: 08/21/2016 Reported: 08/22/2016 14:28 [...] Harden ( ASCP) Processed and screened at [facility] CLINICAL HISTORY: LMP: 10/12/15 Post-, Previous normal pap Date of Last Pap: 02/15/14, Papanicolaou Test Limitations: ??Cervical cytology is a scre ening test with limited sensitivity; regular screening is critical for cancer prevention; Pap tests are primarily effective for the diagnosis/prevention of squamous cell carcinoma, not adenoca rcinomas or other cancers. TESTING LAB LOCATION: [address] ??[address] COLLECTION SITE: Client: ??[facility] Location: RIOB (R) Specimen (Source) Anatomical Collection [...] documented as of this encounter Care Teams Sales Engineer Relationship Specialty Start Date End Date Sarah Montgomery PA-C PCP - General Family Practice 10/21/11 [address] [place] [address] documented as of this encounter
--- OUTSIDE RECORDS SUMMARY | 2022-04-14 08:56 | XMS_ITS | Encounter Summary ---
:1985 Author Organization [place] Address [address] [place] [address] Care Team Providers Name Role Phone Sarah Montgomery PA-C Primary Care Provider [phone] Reason for Visit Reason Onset Date Comments No Show 03/02/2017 Encounter Details Date Type Department Care Team Description 03/02/2017 Office Visit [facility] Derek Johnson NO SLOANE W (Primary Dx) Clinic [place] [place] [address] [facility], [address] [place], [place] [address] [place] [address] (Wo rk) [address] [phone] Social History Tobacco Use Types Packs/Day Years [...] documented as of this encounter Care Teams Bakery Machine Mechanic Relationship Specialty Start Date End Date Sarah Montgomery PA-C PCP - General Family Practice 10/21/11 [address] [place] [address] documented as of this encounter
--- OUTSIDE RECORDS SUMMARY | 2022-04-14 08:56 | XMS_ITS | Encounter Summary ---
:1985 Author Organization [place] Address [address] [place] [address] Care Team Providers Name Role Phone Sarah Montgomery PA-C Primary Care Provider Sarah Montgomery PA-C Unavailable Sarah Montgomery PA-C Unavailable Reason for Visit Reason Onset Date Comments Refill Request 09/23/2017 valACYclovir (VALTRE X) 500 MG tablet Encounter Details Date Type Department Care Team Description 09/23/2017 Refill [facility] Nadiya Bautista efill Request [place] (valACYclovir (VALTREX) [address] 500 MG tablet) [place] [address] [place], [place] [phone] [id number] (Wo rk) Social History Tobacco Use Types Packs/Day Years Used Date Smoking Tobacco: Former Smokeless Tobacco: Never Alcohol Use Standard Drinks/Week Comments No 0 (1 standard drink = 0.6 oz pure alcoho l) Sex Assigned at Date Recorded Not on file documented as of this encounter Miscellaneous Notes Telephone Encounter - Bushra Wong RN - 09/23/2017 6:24 PM CDT Prescription approved per [facility] Refill Protocol. Due for annual exam. My [...] Dr. Bautista Future Office Visit: Cor[facility] [place] Sterilization Specialist documented in this encounter Plan of Treatment Not on filedocumented as of this encounter Visit Diagnoses Diagnosis HSV (herpes simplex virus) infection Herpes simplex without mention of compli cation documented in this encounter Additional Health Concerns Assessment Noted Time PHQ-9 Depression Total Score: 1 09/22/2017 7:43 AM CDT documented as of this encounter Care Teams Paint Mixer Hand Relationship Specialty Start Date End Date Sarah Montgomery, PCP - General Family Practice 10/21/11 [place] [address] [place] [address] Sarah Montgomery, PCP - Assigned PCP 07/27/18 [place] [address] [place] [address] Sarah Montgomery, Assigned PCP 03/15/17 10/17/20 [place] [address] [place] [address] documented as of this encounter
--- OUTSIDE RECORDS SUMMARY | 2022-04-14 08:56 | XMS_ITS | Encounter Summary ---
:1985 Author Organization [place] Address [address] [place] [address] Care Team Providers Name Role Phone Sarah Montgomery PA-C Primary Care Provider Sarah Montgomery PA-C Unavailable [phone] Sarah Montgomery PA-C Unavailable Reason for Referral CV Testing - Closed Specialty Diagnoses / Procedures Referred By Contact Refer red To Contact Cardiology Diagnoses CARDIOVASCULAR SCREENING; LDL GOAL LESS THAN 160 Palpitations Sonny Villafuerte MD Zzrh Cardiac Test [facility] Procedures Cardiac Event Monitor - Peds/Adult [address] [address] [place] [address] [address] [place] [address] Phone: Fax: Referral ID Status Reason Start Date Expiration Date Visits Requ ested Visits Authorized [id number] Closed 10/19/2017 10/19/2018 1 1 V Testing - Closed Specialty Diagnoses / Procedures Referred By Contact Refer red To Contact Cardiology Diagnoses CARDIOVASCULAR SCREENING; LDL GOAL LESS THAN 160 Palpitations Sonny Villafuerte MD Rh Echo [facility] Procedures Echocardiogram [address] [address] [place] [address] [address] [place] [address] Phone: Fax: Referral ID Status Reason Start Date Expiration Date Visits Requ ested Visits Authorized [id number] Closed 10/19/2017 10/19/2018 1 1 Reason for Visit Reason Comments Palpitations family hx of CAD CV Cardio consult - Closed Specialty Diagnoses / Procedures Referred By Contact Refer red To Contact Diagnoses Racing heart beat Palpitations Family history of ischemic heart disease Sarah Montgomery [facility] [address] [facility] [address] [address] [place] [address] [place] [address] Phone: [phone] Fax: Referral ID Status Reason Start Date Expiration Date Visits Requ ested Visits Authorized [id number] Closed 10/08/2017 10/08/2018 1 1 Encounter Details Date Type Department Care Team Description 10/12/2017 Office Visit [facility] Sarah Salas PA-C [address] [place] [address] CARDIOVASCULAR SCREENING; LDL GOAL LESS THAN 160 (Primary Dx); Heart Clinic Sonny Castro MD [address] [facility] [address] [place] [address] Palpitations [address] [facility] [address] [place] [address] Social History Tobacco Use Types Packs/Day [...] would be quite low. SONNY VILLAFUERTE MD, [facility] [place]: [place] Name: SHRUTI KIRKLAND Account: [id number] : 1985 Service Date: 10/12/2017 Document: [id number] Sonny Villafuerte MD - 10/12/2017 12:15 PM [...] Refill ??? fluticasone (FLONASE) 50 MCG/ACT spray [place] 1-2 sprays into both nostrils daily 16 [...] Age of Onset ??? HEART DISEASE Father CO at age 42 ??? Depression Father ??? [...] Single, lives with boyfriend. 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 documented in this encounter Results Cardiac Event Monitor - Peds/Adult (12/10/2017) Narrative [facility] - 12/10/2017 [facility] [address] [facility] [address] [facility] [address] 11/11/2017 Patient: ??Shruti Patel [place] Chart: [id number] : ??1985 Age: ??32 year old Sex: ??female Procedure: ??Event Monitor Placed: Pleas e see scanned document for result once interpretation is completed. Unload Associate performing hook-up: ??Stephan Lizama Sonny Villafuerte MD CV CARDIAC SERVICES ORDERABL ES Performing Organization Address City/State/ZIP Code Phon e Number [facility] Echocardiogram (11/11/2017 8:00 AM CDT) Anatomical Region Laterality Modality Echocardiography Specimen (Source) Anatomical Collection Method Collection Time Re ceived Time Location / / Volume Laterality 11/11/2017 7:48 AM CDT Narrative 11/11/2017 10:37 AM CDT [id number] [id number]^GENESIS^SONNY^LUCRECIA PIPER [facility] Echocardiography Laboratory [address] [place] [address] Name: SHRUTI KIRKLAND : 1985 Study Date: [...] note might be different from the original. [id number] ECH19 [id number]^GENESIS^SONNY^LUCRECIA PIPER [facility] Echocardiography Laboratory [address] [place] [address] Name: SHRUTI KIRKLAND : 1985 Study Date: [...] as of this encounter Care Teams Safety Investigator Relationship Specialty Start Date End Date Sarah Montgomery, PCP - General Family Practice 10/21/11 [place] [address] [place], [place] [id number] Sarah Montgomery, PCP - Assigned PCP 07/27/18 [place] [address] [place] [address] Sarah Montgomery, Assigned PCP 03/15/17 10/17/20 [place] [address] [address] [place], [place] [id number] documented as of this encounter
--- OUTSIDE RECORDS SUMMARY | 2022-04-14 08:56 | XMS_ITS | Encounter Summary ---
:1985 Author Organization [place] Address [address] [facility] [place] [address] Care Team Providers Name Role Phone Sarah Montgomery PA-C Primary Care Provider Sarah Montgomery PA-C Unavailable [phone] Sarah Montgomery PA-C Unavailable Reason for Visit Reason Onset Date Comments No Show 08/24/2017 Encounter Details Date Type Department Care Team Description 08/24/[address] [facility] Catalina Ahuja NO SHO W (Primary Dx) [facility] [address] [facility] [address] [phone] [place], [place] [address] Social History Tobacco Use [...] as of this encounter Care Teams Manager Metrology Relationship Specialty Start Date End Date Sarah Montgomery, PCP - General Family Practice 10/21/11 DEANGELO [address] [place] [address] Sarah Montgomery, PCP - Assigned PCP 07/27/18 DEANGELO [address] [place] [address] Sarah Montgomery, Assigned PCP 03/15/17 10/17/20 DEANGELO [address] [place] [address] documented as of this encounter
--- OUTSIDE RECORDS SUMMARY | 2022-04-14 08:56 | XMS_ITS | Encounter Summary ---
:1985 Author Organization [place] Address [address] [place] [address] Care Team Providers Name Role Phone Sarah Montgomery PA-C Primary Care Provider [phone] Sarah Montgomery PA-C Unavailable Sarah Montgomery PA-C Unavailable Reason for Referral CV Testing - Closed Specialty Diagnoses / Procedures Referred By Contact Refer red To Contact Cardiology Diagnoses CARDIOVASCULAR SCREENING; LDL GOAL LESS THAN 160 Palpitations Sonny Villafuerte MD Echo [facility] Procedures Echocardiogram [address] [address] [place] [address] [address] [place] [address] Phone: Fax: Referral ID Status Reason Start Date Expiration Date Visits Requ ested Visits Authorized [id number] Closed 10/19/2017 10/19/2018 1 1 Reason for Visit CV Testing - Closed Specialty Diagnoses / Procedures Referred By Contact Refer red To Contact Cardiology Diagnoses CARDIOVASCULAR SCREENING; LDL GOAL LESS THAN 160 Palpitations Sonny Villafuerte MD Echo Rscc Procedures Echocardiogram [address] [address] [place] [address] [address] [place] [address] Phone: Fax: Referral ID Status Reason Start Date Expiration Date Visits Requ ested Visits Authorized [id number] Closed 10/19/2017 10/19/2018 1 1 Encounter Details Date Type Department Care Team Description 11/11/2017 Hospital Encounter [facility] Ip, Sonny Chauhan CAR DIOVASCULAR SCREENING; LDL GOAL LESS THAN 160; [facility] MD Veronique Palpitations [facility] [address] [facility] [address] [place] [address] [place], [place] [phone] [address] (Work) [phone] Social History Tobacco Use Types Packs/Day Years Used Date Smoking Tobacco: Former Smokeless Tobacco: Never Alcohol Use Standard Drinks/Week Comments Yes 0 (1 standard drink = 0.6 oz pure alcoho l) weekends Sex Assigned at Date Recorded Not on file documented as of this encounter Medications at Time of Discharge Medication Sig Dispensed Refills Start Date End Date fluticasone (FLONASE) 50 [place] 1-2 sprays 16 g 0 12/2112/01/2020 MCG/ACT [...] AM CDT Narrative 11/11/2017 10:37 AM CDT [id number]^GENESIS^SONNY^LUCRECIA VERONIQUE [facility] [address] [place] [address] Name: SHRUTI KIRKLAND : 1985 Study Date: 11/11/2017 07:48 AM Age: 32 yrs Gender: Female Patient Location: [facility] Reason For Study: Palpitations Ordering Physician: [...] note might be different from the original. [id number]^GENESIS^SONNY^LUCRECIA VALDEZ [facility] [address] [place] [address] Name: SHRUTI KIRKLAND : 1985 Study Date: 11/11/2017 07:48 AM Age: 32 yrs Gender: Female Patient Location: [facility] Reason For Study: Palpitations Ordering Physician: [...] documented as of this encounter Care Teams Wave Soldering Machine Operator Relationship Specialty Start Date End Date Sarah Montgomery, PCP - General Family Practice 10/21/11 DEANGELO [address] [place] [address] Sarah Montgomery PCP - Assigned PCP 07/27/18 DEANGELO [address] [place] [address] Sarah Montgomery, Assigned PCP 03/15/17 10/17/20 DEANGELO [address] [place] [address] documented as of this encounter
--- OUTSIDE RECORDS SUMMARY | 2022-04-14 08:56 | XMS_ITS | Encounter Summary ---
:1985 Author Organization [place] Address [address] [place] [address] Care Team Providers Name Role Phone Sarah Montgomery PA-C Primary Care Provider Sarah Montgomery PA-C Unavailable Sarah Montgomery PA-C Unavailable Reason for Referral Referral not Required - Closed Specialty Diagnoses / Procedures Referred By Contact Refer red To Contact Diagnoses Palpitations Racing heart beat Sarah Montgomery [facility] [place] Agu[place] [address] [place] [address] [place] [address] [place] [address] Phone: [phone] Fax: Referral ID Status Reason Start Date Expiration Date Visits Requ ested Visits Authorized [id number] Closed 10/08/2017 10/08/2018 1 1 V Cardio consult - Closed Specialty Diagnoses / Procedures Referred By Contact Refer red To Contact Diagnoses Racing heart beat Palpitations Family history of ischemic heart disease Sarah Montgomery [facility] [place] Aguilar [address] [place] [address] [place] [address] Phone: [phone] Fax: Referral ID Status Reason Start Date Expiration Date Visits Requ ested Visits Authorized [id number] Closed 10/08/2017 10/08/2018 1 1 Reason for Visit Reason Comments Er F/u Encounter Details Date Type Department Care Team Description 10/08/[address] [facility] Valentina, Racing heart beat (Primary Dx); [facility] [place] Sarah Aguilar PA-C Palpitations; [address] [address] [facility] JERO Family [place] of [place] [address] [phone] Social History Tobacco Use Types Packs/Day Years [...] the following health issues: ED/UC Followup: Facility: [facility] Date of visit: 10/07/2017 Reason for visit: [...] symptoms seemed to resolve. Her father of DE atthe age of 42. Was a non-smoker and healthy Problem list and histories reviewed & adjusted, as indicated. Additional history: as documented Current Outpatient Prescriptions Medication Sig Dispense Refill ??? fluticasone (FLONASE) 50 MCG/ACT spray [place] 1-2 sprays into both nostrils daily 16 [...] due to strong family history of early DE Sarah Montgomery PA-C [facility] documented in this encounter Plan of [...] with platelets differential (10/08/2017 1:53 PM CDT) [facility] Method Time Signature WBC 6.0 4.0 - 10/08/2017 [place] 11.0 2:[address] [facility] 10e9/L [place] RBC Count 4.83 3.8 - 5.2 10/08/2017 [facility] 10e12/L 2:10 PM CDT [facility] [place] Hemoglobin 14.6 11.7 - 10/08/2017 [facility] 15.7 g/dL 2:10 PM CDT [facility] [place] Hematocrit 43.5 35.0 - 10/08/2017 [facility] 47.0 % 2:10 PM CDT [facility] [place] MCV 90 78 - 100 10/08/2017 [facility] fl 2:10 PM CDT [facility] [place] MCH 30.2 26.5 - 10/08/2017 [facility] 33.0 pg 2:10 PM CDT [facility] [place] MCHC 33.6 31.5 - 10/08/2017 [facility] 36.5 g/dL 2:10 PM CDT [facility] [place] RDW 12.9 10.0 - 10/08/2017 [facility] 15.0 % 2:10 PM CDT [facility] [place] Platelet Count 306 150 - 450 10/08/2017 [facility] 10e9/L 2:10 PM CDT [facility] [place] Diff Method Automated 10/08/2017 [facility] Method 2:11 PM CDT [facility] [place] % Neutrophils 48.9 % 10/08/2017 [facility] 2:11 PM CDT [facility] [place] % Lymphocytes 38.3 % 10/08/2017 [facility] 2:11 PM CDT [facility] [place] % Monocytes 10.5 % 10/08/2017 [facility] 2:11 PM CDT [facility] [place] % Eosinophils 1.8 % 10/08/2017 [facility] 2:11 PM CDT [facility] [place] % Basophils 0.5 % 10/08/2017 [facility] 2:11 PM CDT [facility] [place] Absolute 2.9 1.6 - 8.3 10/08/2017 [facility] Neutrophil 10e9/L 2:11 PM CDT [facility] [place] Absolute 2.3 0.8 - 5.3 10/08/2017 [facility] Lymphocytes 10e9/L 2:11 PM CDT [facility] [place] Absolute 0.6 0.0 - 1.3 10/08/2017 [facility] Monocytes 10e9/L 2:11 PM CDT [facility] [place] Absolute 0.1 0.0 - 0.7 10/08/2017 [facility] Eosinophils 10e9/L 2:11 PM CDT [facility] [place] Absolute 0.0 0.0 - 0.2 10/08/2017 [facility] Basophils 10e9/L 2:11 PM CDT [facility] Specimen Anatomical Collection Method Collection Time Receive d Time (Source) Location / / Volume Laterality Blood specimen 10/08/2017 1:53 PM 018 1:54 (specimen) CDT PM CDT Sarah Montgomery PA-C LAB - BLOOD ORDERABLES Performing Organization Address City/[facility]/ZIP Code Phon e Number [facility] [id number] [place] [address] TSH with free T4 reflex (10/08/2017 1:53 PM CDT) athologist Signature TSH 2.24 0.40 - 4.00 10/09/2017 [facility] mU/L 10:[address] [facility] Specimen Anatomical Collection Method Collection Time Receive d Time (Source) Location / / Volume Laterality Blood specimen 10/08/2017 1:53 PM 018 1:54 (specimen) CDT PM CDT Sarah Montgomery PA-C LAB - BLOOD ORDERABLES Performing Organization Address City/[facility]/ZIP Code Phon e Number [facility] [address] [place] [address] documented in this encounter Visit Diagnoses Diagnosis Racing heart beat - Primary Tachycardia, unspecified Palpitations Family history of ischemic heart disease documented in this encounter Additional Health Concerns Assessment Noted Time PHQ-9 Depression Total Score: 1 09/22/2017 7:43 AM CDT documented as of this encounter Care Teams Maintenance Team Leader Relationship Specialty Start Date End Date Sarah Montgomery PCP - General Family Practice 10/21/11 DE[place] [address] [place] [address] Sarah Montgomery PCP - Assigned PCP 07/27/18 DEANGEL[place] [address] [place] [address] Sarah Montgomery Assigned PCP 03/15/17 10/17/20 DEANGELO [address] [place] [address] documented as of this encounter
--- OUTSIDE RECORDS SUMMARY | 2022-04-14 08:56 | XMS_ITS | Encounter Summary ---
:1985 Author Organization [place] Address [address] [place] [address]. [place] [address] Care Team Providers Name Role Phone Sarah Montgomery PA-C Primary Care Provider Sarah Montgomery PA-C Unavailable Sarah Montgomery PA-C Unavailable Reason for Visit Reason Comments Consult Follow-up after SVT ablatio n done Encounter Details Date Type Department Care Team Description 05/05/2018 Office Visit [facility] Quita Thacker [facility]ARDIO [facility] AR[place] OSTEOPATHY DOCTOR SCREENING; LDL GOAL [facility] [address] [place] [address] LESS THAN 160 (Primary [address] [place], [place] [address] [place] [address] Social History Tobacco Use Types Packs/Day [...] Comments Blood Pressure 113/80 05/05/2018 12:36 PM DIAMOND FINISHING SUPERVISOR Pulse 76 05/05/2018 12:36 PM DIAMOND FINISHING SUPERVISOR Temperature - - Respiratory Rate - - Oxygen Saturation - - Inhaled Oxygen Concentration - - Weight 70.8 kg (156 lb) 05/05/2018 12:36 PM DIAMOND FINISHING SUPERVISOR Height 167.6 cm (5' 6) 05/05/2018 12:36 PM DIAMOND FINISHING SUPERVISOR Body Mass Index 25.18 05/05/2018 12:36 PM DIAMOND FINISHING SUPERVISOR documented in this encounter Progress Quita Matthew APRN OSTEOPATHY DOCTOR - 05/05/2018 12:30 PM CST HPI: Rhonda [...] any questions or concerns. Quita Thacker APRN, OSTEOPATHY DOCTOR This note was completed in part using [employer] voice recognition software. Although reviewed after completion, some word and grammatical errors may occur. Orders Placed This Encounter Procedures ??? EKG 12-lead complete w/read - Clinics (performed today) Orders Placed This Encounter Medications ??? [place]-3 Fatty Acids (FISH OIL) 500 MG CAPS Medications Discontinued During This Encounter Medication Reason ??? LORazepam (ATIVAN) 1 MG tablet Encounter Diagnosis Name Primary? CARDIOVASCULAR SCREENING; LDL GOAL LESS THAN 160 Yes CURRENT MEDICATIONS: Current Outpatient Medications Medication Sig Dispense Refill ??? fluticasone (FLONASE) 50 MCG/ACT spray [place] 1-2 sprays into both nostrils daily 16 g 0 ??? [place]-3 Fatty Acids (FISH OIL) 500 MG CAPS ??? valACYclovir (VALTREX) 500 MG tablet Take 1 tablet (500 mg) by mouth 2 times daily 6 tablet 3 ALLERGIES Allergies Allergen Reactions ??? Seasonal Allergies PAST MEDICAL HISTORY: Past Medical History: Diagnosis Date ??? 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 Herpes valtrex ??? SVT (supraventricular tachycardia) (H) PAST SURGICAL HISTORY: Past Surgical History: Procedure Laterality Date ??? EP ABLATION SVT Inducible typical AVNRT.SVT ablation FAMILY HISTORY: Family History Problem Relation Age of Onset ??? Heart Disease Father [place] at age 42 ??? Depression Father ??? [...] Other Topics Concern ??? Parent/sibling w/ CABG, [place] or angioplasty before 65F 55M? No Social History Narrative Single, lives with boyfriend. 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 OND FINISHING SUPERVISOR documented in this encounter Plan of Treatment [...] documented as of this encounter Care Teams Shoe Treer Relationship Specialty Start Date End Date Sarah Montgomery PCP - General Family Practice 10/21/11 PA-C [address] [place] [address] Sarah Montgomery PCP - Assigned PCP 07/27/18 PA-C [address] [place] [address] Sarah Montgomery, Assigned PCP 03/15/17 10/17/20 PA-C [address] [place] [address] documented as of this encounter
--- OUTSIDE RECORDS SUMMARY | 2022-04-14 08:56 | XMS_ITS | Encounter Summary ---
:1985 Author Organization [place] Address [address] [place] [address] Care Team Providers Name Role Phone Sarah Montgomery PA-C Primary Care Provider [phone] Encounter Details Date Type Department Care Team Description 09/13/2016 Telephone [facility] Nurse Michelle Ardon RN [employer] [address] [place] [address] Social History Tobacco Use Types Packs/Day [...] documented as of this encounter Care Teams Circuit Board Inspector Relationship Specialty Start Date End Date Sarah Montgomery PA-C PCP - General Family Practice 10/21/11 [address] [place] [address] documented as of this encounter
--- OUTSIDE RECORDS SUMMARY | 2022-04-14 08:56 | XMS_ITS | Encounter Summary ---
:1985 Author Organization [place] Address [address] [place] [address] Care Team Providers Name Role Phone Sarah Montgomery PA-C Primary Care Provider Sarah Montgomery PA-C Unavailable [phone] Sarah Montgomery PA-C Unavailable [phone] Reason for Visit Reason Onset Date Comments medical question 04/20/2018 Encounter Details Date Type Department Care Team Description 04/20/2018 Telephone [facility] Heart January Laguna RN medical question Clinic [place] [id number] [place] [address] Social History Tobacco Use Types [...] procedure. Patient provided verbal understanding. Eleno RN LE WRITER documented in this encounter Plan of Treatment Not on filedocumented as of this encounter Visit Diagnoses Not on filedocumented in this encounter Additional Health Concerns Assessment Noted Time PHQ-9 Depression Total Score: 1 09/22/2017 7:43 AM CDT documented as of this encounter Care Teams [place] Relationship Specialty Start Date End Date Sarah Montgomery, PCP - General Family Practice 10/21/11 DEANGELO [address] [place], [place] [id number] Sarah Montgomery, PCP - Assigned PCP 07/27/18 DEANGELO [address] [place] [address] Sarah Montgomery, Assigned PCP 03/15/17 10/17/20 DEANGELO [address] [place] [address] documented as of this encounter
--- OUTSIDE RECORDS SUMMARY | 2022-04-14 08:56 | XMS_ITS | Encounter Summary ---
:1985 Author Organization [place] Address [address] [place] [address] Care Team Providers Name Role Phone Sarah [...] documented as of this encounter Care Teams Proof Load Mechanic Relationship Specialty Start Date End Date Sarah Montgomery PCP - General Family Practice 10/21/11 DEANGELO [address] [place] [address] Sarah Montgomery PCP - Assigned PCP 07/27/18 DE[place]EL[place] [address] [place] [address] Sarah Montgomery, Assigned PCP 03/15/17 10/17/20 DEANGELO [address] [place] [address] documented as of this encounter
--- OUTSIDE RECORDS SUMMARY | 2022-04-14 08:56 | XMS_ITS | Encounter Summary ---
:1985 Author Organization [place] Address [address] [place] [address] Care Team Providers Name Role Phone Sarah Montgomery PA-C Primary Care Provider Sarah Montgomery PA-C Unavailable Sarah Montgomery PA-C Unavailable [phone] Reason for Visit Reason Comments Irregular Heart Beat review event monitor - Closed Specialty Diagnoses / Procedures Referred By Contact Refer red To Contact Diagnoses SVT (supraventricular tachycardia) (H) [facility] [id number] [place] [address] Referral ID Status Reason Start Date Expiration Date Visits Requ ested Visits Authorized [id number] Closed 01/06/2018 01/06/2019 1 1 Encounter Details Date Type Department Care Team Description 01/07/2018 Office Visit [facility] IpMorris MD [address] [place] [address] SVT Heart Clinic Oleg Lang MD [address] [place] [id number] (supraventricular 6[address] [facility] tachycard ia) (H) [facility] [address] [place] [address] Social History Tobacco Use Types Packs/Day Years [...] came to the clinic today with her [id number]-tcb son, Adalberto. She has been referred by Dr. Villafuerte. For the past 2 years, Rhonda has had intermittent palpitation where her heart races for a few minutes. With that she sometimes becomes lightheaded. She has not fainted. She tells me it is an uncomfortable feeling. On one occasion she ended up in the emergency room in [place], but from what I gatherthe tachycardia had terminated by the time she was checked in. Later, she saw Dr. Villafuerte, and Morris ordered an outpatient cardiac nurse. This had documented an episode of regular [...] OLEG SOTELO MD, FACC cc: RUBEN Lopez [facility] [address] [place] [address] [place]: RASHAD Name: RHONDA KIRKLAND MRN: [id number] Account: [id number] : 1985 Service Date: 01/07/2018 Document: [id number] Oleg Sotelo MD - 01/07/2018 1:15 PM CDT HPI and Plan: See dictation No orders of the defined types were placed in this encounter. No orders of the defined types were placed in this encounter. There are no discontinued medications. Encounter Diagnosis Name Primary? SVT (supraventricular tachycardia) (H) CURRENT MEDICATIONS: Current Outpatient Prescriptions Medication Sig Dispense Refill ??? fluticasone (FLONASE) 50 MCG/ACT spray [place] 1-2 sprays into both nostrils daily 16 [...] Age of Onset ??? HEART DISEASE Father [place] at age 42 ??? Depression Father ??? [...] Single, lives with boyfriend. 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 Review of Systems: Skin: Positive for bruising Eyes: Negative ENT: Negative Respiratory: Positive for shortness of breath when heart is racing, feels SOB Cardiovascular: Negative for;chest pain;edema Positive for;fatigue;palpitations;lightheadedness;dizziness Gastroenterology: Positive for nausea Genitourinary: Negative Musculoskeletal: Positive for joint pain;back pain see's chiropacter Neurologic: Negative Psychiatric: Positive for anxiety not dx Heme/Lymph/Imm: Positive for easy bruising;allergies Endocrine: Negative [id number] documented in this encounter Plan of Treatment Not on filedocumented as of this encounter Visit Diagnoses Diagnosis SVT (supraventricular tachycardia) (H) Other specified cardiac dysrhythmias documented in this encounter Additional Health Concerns Assessment Noted Time PHQ-9 Depression Total Score: 1 09/22/2017 7:43 AM CDT documented as of this encounter Care Teams Route Delivery Supervisor Relationship Specialty Start Date End Date Sarah Montgomery, PCP - General Family Practice 10/21/11 DEANGELO [address] [place] [address] Sarah Montgomery, PCP - Assigned PCP 07/27/18 DEANGELO [address] [place] [address] Sarah Montgomery, Assigned PCP 03/15/17 10/17/20 DEANGELO [address] [place] [address] documented as of this encounter
--- OUTSIDE RECORDS SUMMARY | 2022-04-14 08:56 | XMS_ITS | Encounter Summary ---
:1985 Author Organization [place] Address [address] [place] [address] Care Team Providers Name Role Phone Sarah Montgomery PA-C Primary Care Provider Sarah Montgomery PA-C Unavailable [phone] Sarah Montgomery PA-C Unavailable [phone] Reason for Referral - Closed Specialty Diagnoses / Procedures Referred By Contact Refer red To Contact Diagnoses SVT (supraventricular tachycardia) (H) [facility] [address] [address] [place] [address] Referral ID Status Reason Start Date Expiration Date Visits Requ ested Visits Authorized [id number] Closed 01/06/2018 01/06/2019 1 1 Reason for Visit Reason Onset Date Comments Results 12/23/2017 Event monitor Encounter Details Date Type Department Care Team Description 12/23/2017 Telephone [facility] Heart Macie Knight RN Results (Event monitor) Clinic [place] [address] [facility] [address] [place] [address] Social History Tobacco Use Types Packs/Day [...] noted. Dr. Villafuerte is recommending consult with fish hatchery man. Left Voice message for patient to return call to discuss recommendations of Dr. Villafuerte's, and to set up EP OV if patient agrees. Await call back. ADDENDUM: Patient returned call. Informed her of the event monitor results showing one episode of SVT and recommendation per Dr. Villafuerte for a consult with EP. Order placed in [employer]. Provided patient with the phone number for the scheduling department and she planned to call back to schedule this. 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: Consulting Utility Forester (supraventricular tachycardia) (H) (Approximat e), Expires: 12/23/2019 documented as of this encounter Visit Diagnoses Diagnosis SVT (supraventricular tachycardia) (H) - Primary Other specified cardiac dysrhythmias documented in this encounter Additional Health Concerns Assessment Noted Time PHQ-9 Depression Total Score: 1 09/22/2017 7:43 AM CDT documented as of this encounter Care Teams Pit Clerk Relationship Specialty Start Date End Date Sarah Montgomery PCP - General Family Practice 10/21/11 RUBEN-C [address] [place] [address] Sarah Montgomery PCP - Assigned PCP 07/27/18 IMELDAC [address] [place] [address] Sarah Montgomery, Assigned PCP 03/15/17 10/17/20 PA-C [address] [place] [address] documented as of this encounter
--- OUTSIDE RECORDS SUMMARY | 2022-04-14 08:56 | XMS_ITS | Encounter Summary ---
:1985 Author Organization [place] Address [address] [place] [address] Care Team Providers Name Role Phone Sarah Montgomery PA-C Primary Care Provider Sarah Montgomery PA-C Unavailable Sarah Montgomery PA-C Unavailable [phone] Reason for Visit Reason Comments Inside Sales Specialist Encounter Details Date Type Department Care Team Description 11/13/[address] [facility] Heart Zoila, Inside Sales Specialist Clinic Piper Estrada RN [address] [facility] [address] [place] [address] Social History Tobacco Use Types Packs/Day Years Used Date Smoking Tobacco: Former Smokeless Tobacco: Never Alcohol Use Standard Drinks/Week Comments Yes 0 (1 standard drink = 0.6 oz pure alcoho l) weekends Sex Assigned at Date Recorded Not on file documented as of this encounter Progress Notes Sean Cummigns NP - 12/14/2017 11:16 AM CDT End of service summary report received from [employer]. No further episodes noted after 11/19/17. Will review with Dr. Villafuerte for signature and send to be scanned. Robert Cummings RN - 12/14/17, 11:17 AM EMT Whitney Zee RN - 11/20/2017 3:33 PM [...] evaluation of palpitations. Event strips received from [employer] from 11/12/17. Three symptomatic events for shortness [...] documented as of this encounter Care Teams Compliance Examiner Relationship Specialty Start Date End Date Sarah Montgomery, PCP - General Family Practice 10/21/11 [facility] [address] [place] [address] Sarah Montgomery, PCP - Assigned PCP 07/27/18 [facility] [address] [place] [address] Sarah Montgomery, Assigned PCP 03/15/17 10/17/20 [facility] [address] [place] [address] documented as of this encounter
--- OUTSIDE RECORDS SUMMARY | 2022-04-14 08:56 | XMS_ITS | Encounter Summary ---
:1985 Author Organization [place] Address [facility] [place] [address] Care Team Providers Name Role Phone Sarah Montgomery PA-C Primary Care Provider Sarah Montgomery PA-C Unavailable Sarah Montgomery PA-C Unavailable Reason for Referral CV Testing - Closed Specialty Diagnoses / Procedures Referred By Contact Refer red To Contact Cardiology Diagnoses SVT (supraventricular tachycardia) (H) Breanna Roblero Sh Heart Cath L ab Procedures EP Ablation SVT EP Ablation Procedures MD Riley [address] [place] [address] [place] [address] Referral ID Status Reason Start Date Expiration Date Visits Requ ested Visits Authorized [id number] Closed 02/19/2018 02/19/2019 1 1 Reason for Visit Reason Onset Date Comments Procedure 02/17/2018 SVT ablation Encounter Details Date Type Department Care Team Description 02/17/2018 Telephone [facility] Heart Lydia Rosado, Procedure (SVT ablation) Clinic Piper HOPKINS [address] [facility] [address] [place] [address] Social [...] in scheduling. H&P set upfor 04/07 in [place] with Quita Thacker, LEO. Appointment reminder sent to patient. KELLIE Johansen [...] Results EP Ablation SVT (04/08/2018 9:43 AM FAMILY MANAGER) Anatomical Region Laterality Modality Other Specimen (Source) Anatomical Location Collection Method / Collectio n Time Received Time / Laterality Volume Narrative 04/08/2018 10:29 AM FAMILY MANAGER Breanna Roblero MD ? 04/08/2018 10:29 AM [...] to the Cardiac E lectrophysiology Laboratory at [facility] on 04/08/2018. ??I determined this patient to [...] mapping and ablation we used a Bi osense Navistar catheter with F/J curve and 4 [...] STA TE (measured in msec): RR: 660 CA: 117 QRS: 92 QT: 368 AH: 60 [...] ?? Breanna Roblero MD CV [facility]SIOLOGY ORD [facility] documented in this encounter Visit Diagnoses Diagnosis SVT (supraventricular tachycardia) (H) - Primary Other specified cardiac dysrhythmias documented in this encounter Additional Health Concerns Assessment Noted Time PHQ-9 Depression Total Score: 1 09/22/2017 7:43 AM CDT documented as of this encounter Care Teams Director Learning Services Relationship Specialty Start Date End Date Sarah Montgomery, PCP - General Family Practice 10/21/11 [facility] [address] [place] [address] Sarah Montgomery, PCP - Assigned PCP 07/27/18 [facility] [address] [place] [address] Sarah Montgomery, Assigned PCP 03/15/17 10/17/20 [facility] [address] [place] [address] documented as of this encounter
--- OUTSIDE RECORDS SUMMARY | 2022-04-14 08:56 | XMS_ITS | Encounter Summary ---
:1985 Author Organization [place] Address [address] [place] [address] Care Team Providers Name Role Phone Sarah Montgomery PA-C Primary Care Provider Sarah Montgomery PA-C Unavailable Sarah Montgomery PA-C Unavailable Reason for Visit Reason Onset Date Comments Clinic Care Coordination - Initial 04/07/2018 SVT A blation Encounter Details Date Type Department Care Team Description 04/07/2018 Telephone [facility] Heart Thelma Bartholomew C linic Care Coordination Clinic Piper RN - Initial (SVT Ablation) [facility] [address] [place] [address] Social History Tobacco Use Types Packs/Day [...] to see Quita today at 1510. JNelsonRN OGY INSTRUCTOR documented in this encounter Plan of Treatment Not on filedocumented as of this encounter Visit Diagnoses Not on filedocumented in this encounter Additional Health Concerns Assessment Noted Time PHQ-9 Depression Total Score: 1 09/22/2017 7:43 AM CDT documented as of this encounter Care Teams Crozer Relationship Specialty Start Date End Date Sarah Montgomery, PCP - General Family Practice 10/21/11 [facility] [address] [place] [address] Sarah Montgomery, PCP - Assigned PCP 07/27/18 [facility] [address] [place] [address] Sarah Montgomery, Assigned PCP 03/15/17 10/17/20 [facility] [address] [place] [address] documented as of this encounter
--- OUTSIDE RECORDS SUMMARY | 2022-04-14 08:57 | XMS_ITS | Encounter Summary ---
:1985 Author Organization [place] Address [address] [place] [address] Care Team Providers Name Role Phone Sarah Montgomery PA-C Primary Care Provider Encounter Details Date Type Department Care Team Description 07/07/2016 Telephone [facility] Nu e Advisors Rozina Garner, RN [address] [place] [address] Social History Tobacco Use Types Packs/Day Years Used Date Smoking Tobacco: Former Smokeless Tobacco: Never Alcohol Use Standard Drinks/Week Comments No 0 (1 standard drink = 0.6 oz pure alcoho l) Sex Assigned at Date Recorded Not on file documented as of this encounter Miscellaneous Notes Telephone Encounter - Rozina Garner RN - 07/07/2016 12:04 AM CST Call Type: Triage Call Presenting Problem: 38 weeks , EVE 07/18/2016, Delivering at [facility]. ROM about 20 minutes ago. Clear fluid. a few Mild contractions, denies vaginal bleeding. Continued movement. calliope player OB paged at [phone] to call patient at [phone] Triage Note: Guideline Title: : Signs of [...] spotting) ? NO Physician Instructions: Care Advice: RVISOR BURLING AND JOINING documented in this encounter Plan of Treatment Not on filedocumented as of this encounter Visit Diagnoses Not on filedocumented in this encounter Additional Health Concerns Assessment Noted Time PHQ-9 Depression Total Score: 0 02/19/2016 7:19 AM CDT documented as of this encounter Care Teams Mounter Brass Wind Instruments Relationship Specialty Start Date End Date Sarah Montgomery PA-C PCP - General Family Practice 10/21/11 [address] [place] [address] documented as of this encounter
--- OUTSIDE RECORDS SUMMARY | 2022-04-14 08:57 | XMS_ITS | Encounter Summary ---
:1985 Author Organization [place] Address [address] [place] [address] Care Team Providers Name Role Phone Sarah Montgomery PA-C Primary Care Provider [phone] Reason for Visit Reason Comments Care Imm/Inj TDAP Encounter Details Date Type Department Care Team Description 04/14/2016 Office [facility] Rm Franco er for Visit [facility] Andres Stone MD supervision of [facility] RETIRED first in [address] second [facility] (Primary Dx) [address] [place] [address] Social History Tobacco Use Types Packs/Day Years Used Date Smoking Tobacco: Former Smokeless Tobacco: Never Comments: quit smoking 2months ago Alcohol Use Standard Drinks/Week Comments Yes 0 (1 standard drink = 0.6 oz pure alcoho l) occasionally - weekends Sex Assigned at Date Recorded Not on file documented as of this encounter Last Filed Vital Signs Vital Sign Reading Time Taken Comments Blood Pressure 110/70 04/14/2016 11:00 AM BEAM DYER RECESSED VAT Pulse - - Temperature - - Respiratory Rate - - Oxygen Saturation - - Inhaled Oxygen Concentration - - Weight 73.1 kg (161 lb 1.6 oz) 04/14/2016 11:00 AM BEAM DYER RECESSED VAT Height 167.6 cm (5' 6) 04/14/2016 11:00 AM BEAM DYER RECESSED VAT Body Mass Index 26 04/14/2016 11:00 AM BEAM DYER RECESSED VAT documented in this encounter Progress Notes Andres Franco - 04/14/2016 2:42 PM CST IUP at 26 weeks; questions reviewed DYER RECESSED VAT documented in this encounter Nursing Notes Digna [...] completed using cuff size: patricia Carty CMA DYER RECESSED VAT documented in this encounter Plan of Treatment Not on filedocumented as of this encounter Procedures Procedure Name Priority Date/Time Associated Diagnosis Comme nts GLUCOSE TOLERANCE Routine 04/14/2016 11:27 AM Encounter for Re sults for this GEST SCREEN 1 HOUR BEAM DYER RECESSED VAT supervision of procedu re are in normal first the results in second section. trimester ANTI TREPONEMA Routine 04/14/2016 11:27 AM Encounter for Resul ts for this BEAM DYER RECESSED VAT supervision of procedure are in normal first the results in second section. trimester CBC WITH PLATELETS Routine 04/14/2016 11:27 AM Encounter for R esults for this BEAM DYER RECESSED VAT supervision of procedure are in normal first the results in second section. trimester documented in this encounter Results Anti Treponema (04/14/2016 11:27 AM BEAM DYER RECESSED VAT) Analysis Performed At Patho logist Time Signature Treponema Negative NEG [facility] Antibody CENTER [facility] Specimen Anatomical Collection Method Collection Time Receive d Time (Source) Location / / Volume Laterality Blood specimen 04/14/2016 11:27 6 (specimen) AM BEAM DYER RECESSED VAT 11:32 AM BEAM DYER RECESSED VAT Andres Franco MD LAB - BLOOD ORDERABLES Performing Organization Address City/State/ZIP Code Phon e Number [facility] [address] [place] [address] [facility] CBC with platelets (04/14/2016 11:27 AM BEAM DYER RECESSED VAT) athologist Signature WBC 6.6 4.0 - 11.0 [place] 10e9/L [facility] RBC Count 3.98 3.8 - 5.2 [place] 10e12/L [facility] Hemoglobin 12.5 11.7 - [place] 15.7 g/dL [facility] Hematocrit 37.5 35.0 - [place] 47.0 % [facility] MCV 94 78 - 100 [place] fl [facility] MCH 31.4 26.5 - [place] 33.0 pg [facility] MCHC 33.3 31.5 - [place] 36.5 g/dL [facility] RDW 12.7 10.0 - [place] 15.0 % [facility] Platelet Count 220 150 - 450 [place] 10e9/L [facility] Specimen Anatomical Collection Method Collection Time Receive d Time (Source) Location / / Volume Laterality Blood specimen 04/14/2016 11:27 6 (specimen) AM BEAM DYER RECESSED VAT 11:32 AM BEAM DYER RECESSED VAT Andres Franco MD LAB - BLOOD ORDERABLES Performing Organization Address City/State/ZIP Code Phon e Number [facility] [address] [place], [place] [address] [address] Glucose tolerance, gest screen, 1 hour (04/14/2016 11:27 AM BEAM DYER RECESSED VAT) athologist Signature Glu Gest 80 60 - 129 [facility] Screen 1hr 50g mg/dL [facility] Specimen Anatomical Collection Method Collection Time Receive d Time (Source) Location / / Volume Laterality Blood specimen 04/14/2016 11:27 6 (specimen) AM BEAM DYER RECESSED VAT 11:32 AM BEAM DYER RECESSED VAT Andres Franco MD LAB - BLOOD ORDERABLES Performing Organization Address City/State/ZIP Code Phon e Number [facility] [address] [place] [address] documented in this encounter Visit Diagnoses Diagnosis Encounter for supervision of normal firs t in second trimester - Primary Supervision of normal first documented in this encounter Additional Health Concerns Assessment Noted Time PHQ-9 Depression Total Score: 0 02/19/2016 7:19 AM CDT documented as of this encounter Care Teams Welfare Worker Relationship Specialty Start Date End Date Sarah Montgomery PA-C PCP - General Family Practice 10/21/11 [address] [place] [address] documented as of this encounter
--- OUTSIDE RECORDS SUMMARY | 2022-04-14 08:57 | XMS_ITS | Encounter Summary ---
:1985 Author Organization [place] Address [address] [facility] [place] [address] Care Team Providers Name Role Phone Sarah Montgomery PA-C Primary Care Provider Reason for Visit Reason Comments UTI Encounter Details Date Type Department Care Team Description 03/10/2016 Office Visit [facility] Catalina Ahuja Dysuri a (Primary Dx) Clinic [facility] [address] [place] [address] [address] [facility] [phone] [place] [address] Social History Tobacco Use Types Packs/Day [...] Age of Onset ??? HEART DISEASE Father ID at age 42 ??? Depression Father ??? [...] hour(s)) *UA reflex to Microscopic and Culture ([facility] (except [place]) Result Value Ref Range Color Urine Yellow Appearance Urine Clear Glucose Urine Negative NEG mg/dL Bilirubin Urine Negative NEG Ketones Urine Negative NEG mg/dL Specific [place] Urine 1.015 1.003 - 1.035 Blood Urine [...] - *UA reflex to Microscopic and Culture ([facility] (except [place] and [place]) Patient is in agreement with the plan. Following up for next visit early next week. Catalina Ahuja NP [facility] documented in this encounter Nursing Notes Lio [...] (70.308 kg). BP completed using cuff size: regular Lio Cordero CMA documented in this encounter Plan of Treatment Not on filedocumented as of this encounter Procedures Procedure Name Priority Date/Time Associated Comments Diagnosis UA MACROSCOPIC WITH Routine 03/10/2016 9:31 AM Dysuria Re sults for this REFLEX TO MICROSCOPIC CDT proced ure are in AND CULTURE the results section. documented in this encounter Results (ABNORMAL) *UA reflex to Microscopic and Culture ([facility] (except [place] and [place]) (03/10/2016 9:31 AM CDT) [facility] gist Method Time Signature Color Urine Yellow [facility] Appearance Urine Clear [facility] Glucose Urine Negative NEG mg/dL [facility] Bilirubin Urine Negative NEG [facility] Ketones Urine Negative NEG mg/dL [facility] Specific [place] 1.015 1.003 - [place] Urine 1.035 [facility] Blood Urine Negative NEG [facility] pH Urine 7.5 (H) 5.0 - 7.0 [place] pH [facility] Protein Albumin Negative NEG mg/dL [facility] Urobilinogen 0.2 0.2 - 1.0 [place] Urine EU/dL [facility] Nitrite Urine Negative NEG [facility] Leukocyte Negative NEG [place] Esterase Urine [facility] Source Midstream [place] Urine [facility] Specimen Anatomical Collection Method Collection Time Receive d Time (Source) Location / / Volume Laterality Urine specimen 03/10/2016 9:31 AM 016 9:36 (specimen) CDT AM CDT Catalina Ahuja NP LAB - URINE ORDERABLES Performing Organization Address City/State/ZIP Code Phon e Number [facility] [address] [place] [address] documented in this encounter Visit Diagnoses Diagnosis Dysuria - Primary documented in this encounter Additional Health Concerns Assessment Noted Time PHQ-9 Depression Total Score: 0 02/19/2016 7:19 AM CDT documented as of this encounter Care Teams Carpenter Rough Relationship Specialty Start Date End Date Sarah Montgomery PA-C PCP - General Family Practice 10/21/11 [address] [place] [address] documented as of this encounter
--- OUTSIDE RECORDS SUMMARY | 2022-04-14 08:57 | XMS_ITS | Encounter Summary ---
:1985 Author Organization [place] Address [address] [place] [address]. [place] [address] Care Team Providers Name Role Phone Sarah Montgomery PA-C Primary Care Provider [phone] Reason for Visit Reason Comments Care Encounter Details Date Type Department Care Team Description 03/17/2016 Office [facility] Nadiya Bautista care in Visit Clinic [facility] second trimester [id number] [place] [address] (Primary Dx) [facility] [address] [facility] [place] [phone] [place] [address] Social History Tobacco Use Types Packs/Day [...] in this document, created by the medical billing supervisor for me, accurately reflects the services I personally performed and the decisions made by me. I have reviewed and approved this document for accuracy prior to leaving the patient care area. Nadiya Bautista DO 11:40 AM, 03/17/2016 Dr. Nadiya Bautista DO PERSONAL INJURY LAW SPECIALIST [facility] documented in this encounter Plan of Treatment Not on filedocumented as of this encounter Visit Diagnoses Diagnosis care in second trimester - Prim steve documented in this encounter Additional Health Concerns Assessment Noted Time PHQ-9 Depression Total Score: 0 02/19/2016 7:19 AM CDT documented as of this encounter Care Teams Wet Room Supervisor Relationship Specialty Start Date End Date Ronaldo-Sarah Doshi PA-C PCP - General Family Practice 10/21/11 [address] [place] [address] documented as of this encounter
--- OUTSIDE RECORDS SUMMARY | 2022-04-14 08:57 | XMS_ITS | Encounter Summary ---
:1985 Author Organization [place] Address [address] [place] [address] Care Team Providers Name Role Phone Sarah Montgomery PA-C Primary Care Provider [phone] Encounter Details Date Type Department Care Team Description 03/28/2016 Telephone [facility] Nurse Kiya Michel , RN [facility]visors [address] [place] [address] Social History Tobacco Use Types Packs/Day Years Used Date Smoking Tobacco: Former Smokeless Tobacco: Never Comments: quit smoking 2months ago Alcohol Use Standard Drinks/Week Comments Yes 0 (1 standard drink = 0.6 oz pure alcoho l) occasionally - weekends Sex Assigned at Date Recorded Not on file documented as of this encounter Miscellaneous Notes Telephone Encounter - Kiya Michel, RN - 03/28/2016 7:19 AM CDT Call Type: Triage Call Presenting Problem: EVE: 07/18/16. Onset last evening 2 1930 hrs. of low back pain. It started on the (L) lower side and then going into both sides and lower left in the front too. Dr. Mendiola paged to [phone] @ 0714 hrs. Triage Note: Guideline Title: [...] documented as of this encounter Care Teams Jointer Machine Relationship Specialty Start Date End Date Sarah Montgomery PA-C PCP - General Family Practice 10/21/11 [address] [place] [address] documented as of this encounter
--- OUTSIDE RECORDS SUMMARY | 2022-04-14 08:57 | XMS_ITS | Encounter Summary ---
:1985 Author Organization [place] Address [address] [place] [address] Care Team Providers Name Role Phone Sarah Montgomery PA-C Primary Care Provider Reason for Visit Reason Comments Care Encounter Details Date Type Department Care Team Description 06/02/2016 Office [facility] Nadiya Bautista (Primary Dx) Visit Clinic [address] [address] [facility] [phone] [place] [address] Social History Tobacco Use Types Packs/Day [...] Comments Blood Pressure 110/70 06/02/2016 11:36 AM MEAT WRAPPER Pulse 73 06/02/2016 11:36 AM MEAT WRAPPER Temperature 36.7 ??C (98.1 ??F) 06/02/2016 11:36 AM MEAT WRAPPER Respiratory Rate - - Oxygen Saturation 98% 06/02/2016 11:36 AM MEAT WRAPPER Inhaled Oxygen Concentration - - Weight 78.1 kg (172 lb 3.2 oz) 06/02/2016 11:36 AM MEAT WRAPPER Height 167.6 cm (5' 6) 06/02/2016 11:36 AM MEAT WRAPPER Body Mass Index 27.79 06/02/2016 11:36 AM MEAT WRAPPER documented in this encounter Patient Instructions Patient InstructionsTarandyEve coley CMA - 06/02/2016 11:34 AM CST Return to clinic in [address] Nadiya Bautista DO Obstetrics and Gynecology [facility] [place] WRAPPER documented in this encounter Progress Notes Eve [...] his/her behalf by Eve Sandoval, a trained manager medical affairs. The creation of this document is based the provider's statements to the manager medical affairs. Angelinaibdinorah Sandoval 11:45 AM, June 02, 2016 ASSESSMENT/PLAN: Rhonda Tamayo is a 30 year old year old @ 33w3d wks EGA with 07/18/16 who presents to the clinic for an ob visit. 1) HSV, recurrent:?? one out break 1st tm, suppression 36 weeks on ?? 2) declined genetic testing ?? 3) Follow up in 2 weeks 4) Rx Valtrex Dr. aNdiya Bautista DO TRUCK GREASER [facility] The information in this document, created by the manager medical affairs for me, accurately reflects the services I personally performed and the decisions made by me. I have reviewed and approved this document for accuracy prior to leaving the patient care area. Nadiya Bautista DO 11:44 AM, 06/02/2016 WRAPPER documented in this encounter Nursing Notes Eli [...] cuff size: regular right arm ALEXI Fleming WRAPPER documented in this encounter Plan of Treatment Not on filedocumented as of this encounter Visit Diagnoses Diagnosis Herpes - Primary Herpes simplex without mention of compli cation documented in this encounter Additional Health Concerns Assessment Noted Time PHQ-9 Depression Total Score: 0 02/19/2016 7:19 AM CDT documented as of this encounter Care Teams Light Rail Transit Operator Relationship Specialty Start Date End Date Sarah Montgomery PA-C PCP - General Family Practice 10/21/11 [address] [place] [address] documented as of this encounter
--- OUTSIDE RECORDS SUMMARY | 2022-04-14 08:57 | XMS_ITS | Encounter Summary ---
:1985 Author Organization [place] Address [address] [place] [address] Care Team Providers Name Role Phone Sarah Montgomery PA-C Primary Care Provider [phone] Encounter Details Date Type Department Care Team Description 12/24/2015 Orders Only [facility] HSV (herpes simplex virus) [facility] infection [address] [place] [address] Social History Tobacco Use [...] 0.8 [facility] Virus Type 1 AI [facility] Comment: Positive. ??IgG antibody to HSV-1 detect ed. Antibody index (AI) values reflect qual itative changes in antibody concentration that cannot be directly a ssociated with clinical condition or disease state. Herpes Simplex <0.2 0.0 - 0.8 AI [facility] Virus Type 2 IgG No HSV-2 IgG antibodies detected. [facility] Antibody index (AI) values reflect qualitative changes [facility] concentration that cannot be directly associated with clinical condition or disease state. Specimen Anatomical Collection Method Collection Time Receive d Time (Source) Location / / Volume Laterality Blood specimen 12/24/2015 9:28 AM 016 9:33 (specimen) CDT AM CDT Nadiya Bautista DO LAB - BLOOD ORDERABLES Performing Organization Address City/[facility]/ZIP Code Phon e Number [address] [address] [facility] HSV IgM antibody (12/24/2015 9:28 AM CDT) athologist Signature Herpes Simplex 0.71 0.00 - [facility] Virus IgM 0.89 Index IN MEDICAL Antibody Value [facility]ENTER [facility] Comment: No detectable antibody. A negative test result does not rule ou t a primary or reactivated infection. Specimen Anatomical Collection Method Collection Time Receive d Time (Source) Location / / Volume Laterality Blood specimen 12/24/2015 9:28 AM 016 9:33 (specimen) CDT AM CDT Nadiya Bautista DO LAB - BLOOD ORDERABLES Performing Organization Address City/[facility]/ZIP Code Phon e Number [address] [address] [facility] documented in this encounter Visit Diagnoses Diagnosis HSV (herpes simplex virus) infection Herpes simplex without mention of compli cation documented in this encounter Additional Health Concerns Assessment Noted Time PHQ-9 Depression Total Score: 0 09/07/2015 7:16 AM CDT documented as of this encounter Care Teams Filling Operator Relationship Specialty Start Date End Date Ronadlo-Sarah Doshi PA-C PCP - General Family Practice 10/21/11 [address] [place] [address] documented as of this encounter
--- OUTSIDE RECORDS SUMMARY | 2022-04-14 08:57 | XMS_ITS | Encounter Summary ---
:1985 Author Organization [place] Address [address] [place] [address] Care Team Providers Name Role Phone Sarah Montgomery PA-C Primary Care Provider [phone] Reason for Visit Reason Comments Spontaneous Rupture of Membrane Auth/Cert Specialty Diagnoses / Procedures Referred By Contact Refer red To Contact signal engineer Diagnoses Indication for care in labor or delivery state Rh [address] [place], [place] [address] Phone: Fax: Referral ID Status Reason Start Date Expiration Date Visits Requ ested Visits Authorized [id number] 1 1 Encounter Details Date Type Department Care Team Description 07/07/2016 - Hospital Encounter [facility] Morris Murray MD 07/09/2016 [facility] Wells MD [address] [facility] 100 131 160 [place], [place] [address] [address] [place] [address] Social History Tobacco Use Types Packs/Day Years Used Date Smoking Tobacco: Former Smokeless Tobacco: Never Alcohol Use Standard Drinks/Week Comments No 0 (1 standard drink = 0.6 oz pure alcoho l) Sex Assigned at Date Recorded Not on file documented as of this encounter Last Filed Vital Signs Vital Sign Reading Time Taken Comments Blood Pressure 127/81 07/09/2016 6:00 PM ANIMAL TECHNICIAN Pulse 81 07/09/2016 6:00 PM ANIMAL TECHNICIAN Temperature 36.7 ??C (98 ??F) 07/09/2016 6:00 PM ANIMAL TECHNICIAN Respiratory Rate 18 07/09/2016 6:00 PM ANIMAL TECHNICIAN Oxygen Saturation - - Inhaled Oxygen Concentration - - Weight 80.7 kg (178 lb) 07/07/2016 12:34 AM ANIMAL TECHNICIAN Height 167.6 cm (5' 6) 07/07/2016 12:34 AM ANIMAL TECHNICIAN Body Mass Index 28.73 07/07/2016 12:34 AM ANIMAL TECHNICIAN documented in this encounter Discharge Instructions Discharge InstructionsWaleska Bernstein RN - 07/09/2016 10:58 AM CST Make an appointment to follow up with your primary OB in 6 weeks : [phone] [facility] Care: [phone] Vaginal Delivery Instructions Activity ?? Ask family [...] hands. Keep your nails clean and short. AL TECHNICIAN documented in this encounter Medications at Time [...] studies have been ordered Bina Morgan MD AL TECHNICIAN Christina Mendiola MD - 07/08/2016 8:55 AM CST [facility] Post- Progress Note Assessment and Plan: Assessment: [...] does not need MMR vaccine ??? Tdap (uvhqbza-lkjmogmrtu-ncgan pertussis) (ADACEL) injection 0.5 mL Physical Exam: [...] studies have been ordered Christina Mendiola MD AL TECHNICIAN documented in this encounter H&P Notes Oxana [...] Negative Negative for C. trachomatis rRNA by heavy equipment plumbing supervisor mediated amplification. A negative result by heavy equipment plumbing supervisor mediated amplification does not preclude the presence of C. trachomatis infection because results are dependent on proper and adequate collection, absence of inhibitors, and sufficient rRNA to be detected. GCPCRT 01/14/2016 Negative Negative for N. gonorrhoeae rRNA by heavy equipment plumbing supervisor mediated amplification. A negative result by heavy equipment plumbing supervisor mediated amplification does not preclude the presence [...] on incubated broth culture of specimen using Ignit[employer] real-time PCR. Active Problem List Patient Active [...] Diagnosis Date ??? abnormal pap 06/02, 09/2011 ' HSIL, colp neg, '12:ELZBIETA I ??? Herpes [...] scars, normal bowel sounds, gravid uterus dolan VTX EFW 7.5#, no masses palpated, no [...] aug and epidural prn Oxana Wells MD AL TECHNICIAN documented in this encounter Miscellaneous Notes Note [...] at bedside not needed at this time. AL TECHNICIAN Plan of Care - Waleska Bernstein RN - 07/09/2016 12:30 PM CST Problem: Goal Outcome Summary Goal: Goal Outcome Summary Outcome: Adequate for Discharge Date Met: 07/09/16 VSS and meeting expected goals this shift. , calls for assistance with latch as needed. Pt states infant is latching better on the left breast than right, no longer using the nippleshield. Saw today - see note. Encouraged pt to continue to call for any assistance. Up ad jessica and independent with self and cares. FOB supportive at the bedside. Bonding with and attentive to 's needs. AVS education completed with pt. Pt verbalized understanding of the discharge instructions and states she has no further questions at this time. All education completed. Will discharge to home with and significant other after infant's circumcision, to be dis charged after [address] Gooden - see note. AL TECHNICIAN Plan of Care - Brenda Garcia RN - 07/09/2016 6:01 AM CST Problem: Goal Outcome Summary Goal: Goal Outcome Summary Outcome: Improving VSS. Independent with cares for self and . FOB at bedside and supportive. Pain managed using ibuprofen. , calling once this shift for assistance, tearful. Pt was reassured and encouraged to call for assistance. AL TECHNICIAN Plan of Care - Yvette Campos RN - 07/08/2016 9:42 PM CST Problem: Goal Outcome Summary Goal: Goal Outcome Summary Outcome: Improving Doing well with self and infant cares, breast feeding independently. Declines offers of pain medication this shift. Denies difficulty voiding. FOB present and supportive. AL TECHNICIAN Plan of Care - Waleska Bernstein RN - 07/08/2016 12:27 PM CST Problem: Goal Outcome Summary Goal: Goal Outcome Summary Outcome: Improving VSS and meeting expected goals. checks WDL - see flowsheet. Up ad jessica and independent with self and cares. Tolerating a general diet, voiding without any complications. Pain adequately managed per patient with ibuprofen this shift. , called once this shift for help with latch. Encouraged pt to continue to call for any assistance. FOB supportive at the bedside. Bonding with and attentive to infant's needs. Continue to monitor. AL TECHNICIAN Plan of Care - Brenda Garcia RN [...] cares and is able to care for with help of FOB. Action: Patient denies pain and declines pain medication. Patient stated she was comfortable. Patient education done about orientation to unit and . See flow record. Response: Positive attachment behaviors observed with infant. Support persons spouse present. Plan: Anticipate discharge on 07/09/2016. AL TECHNICIAN L&D Delivery Note - Oxana Wells MD - 07/07/2016 11:24 PM CST OB Vaginal Delivery Note Rhonda Tamayo Age: [age] year old Date of : 1985 GA: 38w3d GP: Labor Complications: None EBL: mL QBL: 45 mL Delivery Type: Vaginal, Spontaneous Delivery ROM to Delivery Time: 23h 29m Mason Weight: 1 Minute 5 Minute 10 Minute Totals: 8 9 Delivery Details: Rhonda Tamayo, a 30 year old female delivered a viable with apgars of 8 and 9 . [...] No Rupture identifier: Rupture 1 Rupture date/time: 07/06/162339 Rupture type: Spontaneous rupture of membranes prior to induction Fluid color: Clear Fluid odor: Normal Delivery/Placenta Date and Time Delivery Date: 07/07/16 Delivery Time: 11:09 PM Placenta Date/Time: 07/07/2016 11:11 PM Oxytocin given at the time of delivery: after delivery of placenta Vaginal Counts Initial count performed by 2 team members: Two Team Members Dr roshan Islas, RN [place] Suture [place] Sponges Instruments Initial counts 2 5 Added [...] Cord Blood Disposition: Lab Gases Sent?: No Mason Resuscitation Methods: None Skin to Skin and Feeding Plan Skin to skin initiation date/time: 07/07/162310 Skin to skin with: Mother Skin to skin end date/time: How do you plan to feed your baby: Labor Events and Shoulder Dystocia Tracing Prior to Delivery: Category 1 Shoulder dystocia present?: Neg Delivery (Maternal) (Provider to Complete) ([id number]) Episiotomy: None Perineal lacerations: 1st Repaired?: No Vaginal laceration?: No Cervical laceration?: No Mother's Information Mother: Rhonda Tamayo #[id number] Start of Mother's Information IO Blood Loss 07/07/16 1812 - 07/07/16 2324 Mom's I/O Activity End of Mother's Information Mother: Rhonda Tamayo #[id number] Delivery - Provider to Complete ([id number]) Delivering clinician: OXANA WELLS Attempted Delivery Types (Choose all that apply): Spontaneous Vaginal Delivery Delivery Type (Choose the 1 that will go to the History): Vaginal, Spontaneous Delivery Placenta Delayed Cord Clamping: Done Date/Time: 07/07/2016 11:11 PM Removal: Spontaneous Disposition: Hospital disposal Anesthesia Method: Epidural Cervical dilation at placement: 4-7 Presentation and Position Presentation: Vertex Position: Middle Occiput Anterior Oxana Wells MD AL TECHNICIAN Provider Notification - Holley Aceves RN - 07/07/2016 9:29 PM CST 07/07/169 Provider Notification Provider Name/Title Dr Wells Method of Notification Phone Request Evaluate - Remote MD called for update. Notified that pt is 10/100/0 and not feeling pressure. MD would still like pt to start pushing. AL TECHNICIAN Provider Notification - Holley Aceves RN - 07/07/2016 9:05 PM CST 07/07/165 Provider Notification Provider Name/Title Dr Wells Method of Notification Phone Request Evaluate - Remote MD notified of SVE. Ok to labor down if needed. Call when ready for delivery. AL TECHNICIAN Provider Notification - Holley Aceves RN - [...] to continue with current plan. MD is mental health professional all night. AL TECHNICIAN Provider Notification - Alona Dash RN - 07/07/2016 8:34 AM CST 07/07/16 0830 Provider Notification Provider Name/Title Roshan Method of Notification In Department MD in department and updated on SVE. No new orders at this time. Will continue to monitor. AL TECHNICIAN Plan of Care - Juanita Burgos RN - 07/07/2016 7:25 AM CST Bedside report given to KELLIE Cardona. Care transferred at this time. AL TECHNICIAN Provider Notification - Juanita Burgos RN - [...] pt on POC and continue to monitor. AL TECHNICIAN Plan of Care - Juanita Burgos RN - 07/07/2016 2:25 AM CST Attempting Shyla placement from 0155 to 0225. Unable to trace FHR with Shyla Monitor. External US and toco replaced after attempt. AL TECHNICIAN Provider Notification - Juanita Burgos RN - [...] pt on POC and continue to monitor. AL TECHNICIAN Plan of Care - Juanita Burgos RN - 07/07/2016 12:30 AM CST Data: [facility] Reason for maternal/ assessment [...] agreement with plan. Will contact Dr Murray. AL TECHNICIAN documented in this encounter Plan of Treatment Not on filedocumented as of this encounter Procedures Procedure Name Priority Date/Time Associated Diagnosis Comme nts ABO AND RH STAT 07/07/2016 2:15 AM Results f or this ANIMAL TECHNICIAN procedure are i n the results section. ANTI TREPONEMA STAT 07/07/2016 1:50 AM Results for this ANIMAL TECHNICIAN procedure are i n the results section. RUPTURE OF Routine 07/07/2016 12:50 AM Results for this [facility]BRANES BY ANIMAL TECHNICIAN procedure are i n AMNISURE the results section. documented in this encounter Results ABO and Rh (07/07/2016 2:15 AM ANIMAL TECHNICIAN) Analysis Performed At Patho logist Time Signature ABO A [facility] RH(D) Pos [facility] Specimen 07/10/2016 [facility] Specimen Anatomical Collection Method Collection Time Receive d Time (Source) Location / / Volume Laterality Blood specimen 07/07/2016 2:15 AM 017 2:26 (specimen) ANIMAL TECHNICIAN AM ANIMAL TECHNICIAN Morris Murray MD LAB - BLOOD BANK TEST ORDER Performing Organization Address City/State/ZIP Code Phon e Number M [facility] [address] [place], [place] [address] [facility] [address] [place], [place] [address], [facility] [phone] Anti Treponema (07/07/2016 1:50 AM ANIMAL TECHNICIAN) Analysis Performed At Patho logist Time Signature Treponema Negative NEG [facility] MEDICAL Antibody CENTER [facility] Specimen Anatomical Collection Method Collection Time Receive d Time (Source) Location / / Volume Laterality Blood specimen 07/07/2016 1:50 AM 017 2:06 (specimen) ANIMAL TECHNICIAN AM ANIMAL TECHNICIAN Morris Murray MD LAB - BLOOD ORDERABLES Performing Organization Address City/[facility]/ZIP Code Phon e Number [facility] [address] [place] [address] [facility] (ABNORMAL) Rupture of membranes by Amnisure (07/07/2016 12:50 AM ANIMAL TECHNICIAN) P athologist Signature Amnisure Positive (A) NEG [facility] Specimen (Source) Anatomical Collection Method Collection Time Re ceived Time Location / / Volume Laterality Cervicovaginal VAGINAL STRUCTURE 07/07/2016 12:50 02/1 07/2016 Secretions / Unknown AM ANIMAL TECHNICIAN 12:58 AM ANIMAL TECHNICIAN Morris Murray MD LAB - BODY FLUIDS ORDERABLES Performing Organization Address City/State/ZIP Code Phon e Number M [facility] [address] [place], [place] [address] [facility] [address] [place], [place] [address] [phone] documented in this encounter Visit Diagnoses Diagnosis [...] (TYLENOL) tablet 650 Given 07/08/2016 1:50 PM ANIMAL TECHNICIAN 650 mg mg 650 mg, Oral, EVERY 4 HOURS PRN, mild pain, fever, greater than or equal to 38?? C /100.4?? F (oral) or 38.5?? C/ 101.4?? F (core)., Starting on Thu07/07/16 at 2327, Maximum acetaminophen dose from all sources = 75 mg/kg/day not to exceed 4 grams/day. bisacodyl (DULCOLAX) Suppository 10 mg 10 mg, Rectal, DAILY PRN, constipation, Starting on We 07/09/16 at 0000 BUPivacaine (MARCAINE) 0.125% in [...] (PF) (SUBLIMAZE) injection Given 06/25 4:51 PM ANIMAL TECHNICIAN 100 mcg 100 mcg 100 mcg, Intravenous, EVERY 1 HOUR PRN, moderate to severe pain, Starting on Thu07/07/16 at 1126 Given 07/07/2016 3:18 PM ANIMAL TECHNICIAN 100 mcg Given 07/07/2016 1:36 PM ANIMAL TECHNICIAN 100 mcg hydrocortisone 2.5 % cream Rectal, 3 TIMES DAILY PRN, hemorrhoids, Starting on Thu07/07/16 at 2327, Apply to hemorrhoids. Send only if nurse requests. ibuprofen (ADVIL/MOTRIN) tablet 400-800 mg Given 07/09/2016 8:33 AM ANIMAL TECHNICIAN 800 mg 400-800 mg, Oral, EVERY 6 HOURS PRN, other, cramping, Starting on Thu07/07/16 at 2327, Max dose 3200 mg/day. Given 07/09/2016 12:27 AM ANIMAL TECHNICIAN 800 mg Given 07/08/2016 8:41 AM ANIMAL TECHNICIAN 800 mg influenza quadrivalent (PF) vacc Given 07/09/2016 8:34 AM ANIMAL TECHNICIAN 0. 5 mLs Left Deltoid age 5 [...] 1,000 mL New Bag 07/07/2016 5:25 PM ANIMAL TECHNICIAN 1,000 mLs Intravenous, 1,000 mL, ONCE PRN, [...] ringers infusion New Bag 07/07/2016 9:48 PM ANIMAL TECHNICIAN 125 mL/hr at 125 mL/hr, Intravenous, CONTINUOUS, Starting on Thu07/07/16 at 0130, Until Thu07/09/16 at 0810 New Bag 07/07/2016 1:36 PM ANIMAL TECHNICIAN 125 mL/hr lanolin ointment Topical, EVERY 1 [...] and rubella vaccine Given 07/09/2016 10:11 AM ANIMAL TECHNICIAN 0.5 mLs Left Arm (MMR) injection 0.5 [...] Ordered via OB misoprostol (CYTOTEC) Hemorrhage PANEL ([id number]) misoprostol (cervical ripening) (CYTOTEC) Given 07/07/2016 6:05 AM ANIMAL TECHNICIAN 25 mcg quarter-tab 25 mcg 25 mcg, [...] units in New Bag 07/07/2016 11:14 PM ANIMAL TECHNICIAN 340 mL/hr 340 mL/hr 500 mL 0.9% [...] mL/hr units in 500 mL 0.9% PM ANIMAL TECHNICIAN NaCl infusion 1-24 charlette-units/min (1-24 mL/hr), Intravenous, [...] ripening medication. Rate/Dose Verify 07/07/2016 7:15 PM ANIMAL TECHNICIAN 5 charlette-units/min 5 mL/hr Rate/Dose Verify 07/07/2016 6:45 PM ANIMAL TECHNICIAN 4 charlette-units/min 4 mL/hr oxytocin (PITOCIN) 30 units in New Bag 07/07/2016 11:46 PM ANIMAL TECHNICIAN 100 mL/hr 100 mL/hr 500 mL 0.9% [...] for loose stools. Given 07/08/2016 8:13 PM ANIMAL TECHNICIAN 1 tablet Given 07/08/2016 8:41 AM ANIMAL TECHNICIAN 2 tablets sodium phosphate (FLEET ENEMA) 1 enema 1 enema, Rectal, DAILY PRN, constipation , Starting on Thu07/09/16 at 0000, Use if bisacodyl not effective documented in this encounter Active and Recently Administered Medications Times are shown in ANIMAL TECHNICIAN. Scheduled Medication Order 07/07/2016 07/08/201607/09/2016 influenza quadrivalent (PF) vacc age 5 y [...] (cervical ripening) (CYTOTEC) quarter-tab 25 mcg (COMPLETED) 06 (Given - Provider: Juanita Burgos RN) 25 [...] po BID. Hold for loose stools. Tdap (hnsfdmf-iaaamvdttb-vtekn pertussis) (ADACEL) injection 0.5 mL 1359 (Not [...] response and passive antibody transfer to the , optimal timing is between 27 and 36 [...] 0428 (Canceled En try - Provider: Juanita Burgos, KELLIE)1336 (New Bag - Provider: Alona Dash RN)2148 [...] Alona Dash RN)1518 (Given - Provider: Holley Aceves RN)1651 (Given - Provider: Holley Aceves RN) 100 mcg, Intravenous, EVERY 1 HOUR PRN, Starting Thu07/07/16 at 1126, moderate to severe pain hydrocortisone 2.5 % cream Rectal, 3 TIMES DAILY PRN, hemorrhoids, Starting Thu07/07/16 at 2327, Apply to hemorrhoids. Send only if nurse requests. ibuprofen (ADVIL/MOTRIN) tablet 400-800 mg 2330 (Given - Provider: Karley Thorne, RN) 0841 (Given - Provider: Waleska Bernstein, KELLIE) 0027 (Give n - Provider: Brenda Garcia RN)0833 (Given - Provider: Waleska Bernstein, KELLIE) 400-800 mg, Oral, EVERY 6 HOURS PRN, [...] Ordered via OB misoprostol (CYTOTEC) Hemorrhage PANEL ([id number]) misoprostol (CYTOTEC) tablet 400 mcg 400 mcg, [...] PRN, for hemorrhage UNTIL bleeding subsided, Starting Thu07/07/16 at 2327, When bleeding subsides decrease rate to 100 mL/hr. Notify provider immediately when infusion begun. oxytocin (PITOCIN) injection 10 Units 10 Units, Intramuscular, ONCE PRN, postp artum hemorrhage IF no IV access is available, Starting Thu07/07/16 at 2327, For 1 dose sodium phosphate (FLEET ENEMA) 1 enema 1 enema, Rectal, DAILY PRN, constipation , Starting Thu07/09/16 at 0000, Use if bisacodyl not effective documented in this encounter Additional Health Concerns Assessment Noted Time PHQ-9 Depression Total Score: 0 02/19/2016 7:19 AM CDT documented as of this encounter Care Teams Stunt Performer Relationship Specialty Start Date End Date Sarah Montgomery PA-C PCP - General Family Practice 10/21/11 [address] [place] [address] documented as of this encounter
--- OUTSIDE RECORDS SUMMARY | 2022-04-14 08:57 | XMS_ITS | Encounter Summary ---
:1985 Author Organization [place] Address [address] [place] [address]. [place] [address] Care Team Providers Name Role Phone Sarah Montgomery PA-C Primary Care Provider Reason for Visit Reason Comments Care Encounter Details Date Type Department Care Team Description 02/18/2016 Office [facility] Nadiya Bautista care in Visit Clinic [facility] second trimester [id number] [place] [address] (Primary Dx) [facility] [address] [facility] [phone] [place] [address] Social History Tobacco Use Types Packs/Day [...] Dr. Nadiya Bautista DO Obstetrics and Gynecology [facility] documented in this encounter Progress Notes Nadiya [...] ?? 2) declined genetic testing Dr. Nadiya Bautista DO? SUPERINTENDENT POWER ?? [facility] documented in this encounter Nursing Notes Eli [...] documented as of this encounter Care Teams Crew Clerk Relationship Specialty Start Date End Date Sarah Montgomery PA-C PCP - General Family Practice 10/21/11 [address] [place] [address] documented as of this encounter
--- OUTSIDE RECORDS SUMMARY | 2022-04-14 08:57 | XMS_ITS | Encounter Summary ---
:1985 Author Organization [place] Address [address] [place] [address] Care Team Providers Name Role Phone Sarah Montgomery PA-C Primary Care Provider [phone] Reason for Visit Auth/Cert Specialty Diagnoses / Procedures Referred By Contact Refer red To Contact flea market seller Diagnoses Indication for care in labor or delivery state Rh [address] [place], [place] [address] Phone: Fax: Referral ID Status Reason Start Date Expiration Date Visits Requ ested Visits Authorized [id number] 1 1 Encounter Details Date Type Department Care Team Description 07/07/2016 Anesthesia Event [facility] Morris Max MD [facility] [address] [facility] [place] [address] [address] [facility] [address] [address] [place], [place] [address] (Wo rk) Anesthesia Record [...] Daigle MD July 08, 2016 8:26 AM E SANE Anesthesia Preprocedure Evaluation - Morris Max MD - 07/07/2016 5:58 PM NURSE SANE PAC NOTE: ANESTHESIA PRE EVALUATION: Anesthesia Evaluation [...] benefits and alternatives discussed with: Patient.. . E SANE Anesthesia Procedure Notes - Morris Max MD - 07/07/2016 5:52 PM NURSE SANE Associated Order(s): ANE EPIDURAL BLOCK Peripheral nerve/Neuraxial [...] 15cc per hour started. Morris Max MD E SANE documented in this encounter Miscellaneous Notes Addendum Note - Vishal Daigle MD - 07/08/2016 8:26 AM CST Addendum created 07/08/16825 by Vishal Daigle MD Sign clinical note E SANE documented in this encounter Plan of Treatment Not on filedocumented as of this encounter Procedures Procedure Name Priority Date/Time Associated Diagnosis Comme nts ANE EPIDURAL BLOCK Routine 07/07/2016 5:52 PM NURSE SANE Procedure Note - Kasey Max MD - [...] documented as of this encounter Care Teams Full Stack Net Developer Relationship Specialty Start Date End Date Sarah Montgomery PA-C PCP - General Family Practice 10/21/11 [address] [place] [address] documented as of this encounter
--- OUTSIDE RECORDS SUMMARY | 2022-04-14 08:57 | XMS_ITS | Encounter Summary ---
:1985 Author Organization [place] Address [address] [place] [address]. [place] [address] Care Team Providers Name Role Phone Sarah [place] PA-C Primary Care Provider Reason for Visit Reason Comments Care Encounter Details Date Type Department Care Team Description 07/01/2016 Office [facility] Nadiya Bautista care in [facility] [place], DO third trimester [place] [address] D[facility] [address] [place], [facility] [address] [place] [id number] [place] [address] [phone] [address] (Work) [phone] Social History Tobacco Use Types Packs/Day Years [...] Comments Blood Pressure 120/70 07/01/2016 10:57 AM GEAR GRINDING MACHINE OPERATOR Pulse - - Temperature - - Respiratory Rate - - Oxygen Saturation - - Inhaled Oxygen Concentration - - Weight 81.1 kg (178 lb 12.8 oz) 07/01/2016 10:57 AM GEAR GRINDING MACHINE OPERATOR Height 167.6 cm (5' 6) 07/01/2016 10:57 AM GEAR GRINDING MACHINE OPERATOR Body Mass Index 28.86 07/01/2016 10:57 AM GEAR GRINDING MACHINE OPERATOR documented in this encounter Patient Instructions Patient InstructionsWaleska Garcia - 07/01/2016 11:04 AM CST Return in [address] Nadiya Bautista DO Obstetrics and Gynecology [facility] GRINDING MACHINE OPERATOR documented in this encounter Progress Notes Waleska [...] behalf by Waleska Garcia, a trained medical diagnostic radiographer. The creation of this document is based the provider's statements to the medical diagnostic radiographer. Scribkerri Garcia 11:00 AM, July 01, 2016 ASSESSMENT/PLAN: [...] in this document, created by the medical diagnostic radiographer for me, accurately reflects the services I personally performed and the decisions made by me. I have reviewed and approved this document for accuracy prior to leaving the patient care area. Nadiya Bautista DO 11:00 AM, 07/01/2016 Dr. Nadiya Bautista DO TIMBER GIRDLER [facility] GRINDING MACHINE OPERATOR documented in this encounter Nursing Notes Digna [...] kg). Medication Reconciliation: complete Digna Carty CMA GRINDING MACHINE OPERATOR documented in this encounter Plan of Treatment Not on filedocumented as of this encounter Visit Diagnoses Diagnosis care in third trimester - Prima ry documented in this encounter Additional Health Concerns Assessment Noted Time PHQ-9 Depression Total Score: 0 02/19/2016 7:19 AM CDT documented as of this encounter Care Teams Quarry Worker Relationship Specialty Start Date End Date Sarah [place] PA-C PCP - General Family Practice 10/21/11 [address] [place] [address] documented as of this encounter
--- OUTSIDE RECORDS SUMMARY | 2022-04-14 08:57 | XMS_ITS | Encounter Summary ---
:1985 Author Organization [place] Address [address] [place] [address]. [place] [address] Care Team Providers Name Role Phone Sarah [place] PA-C Primary Care Provider Reason for Visit Reason Comments Care Encounter Details Date Type Department Care Team Description 05/19/2016 Office [facility] Nadiya Bautista for Visit Clinic [facility] supervision of [address] first in [place], [place] S third trimester [phone] [place], (Primary Dx) [phone] [place] [address] Social History Tobacco Use Types Packs/Day [...] Comments Blood Pressure 100/66 05/19/2016 3:56 PM PROTEIN CHEMIST Pulse 83 05/19/2016 3:56 PM PROTEIN CHEMIST Temperature 36.4 ??C (97.5 ??F) 05/19/2016 3:56 PM PROTEIN CHEMIST Respiratory Rate - - Oxygen Saturation 98% 05/19/2016 3:56 PM PROTEIN CHEMIST Inhaled Oxygen Concentration - - Weight 76.7 kg (169 lb 1.6 oz) 05/19/2016 3:56 PM PROTEIN CHEMIST Height 167.6 cm (5' 6) 05/19/2016 3:56 PM PROTEIN CHEMIST Body Mass Index 27.29 05/19/2016 3:56 PM PROTEIN CHEMIST documented in this encounter Patient Instructions Patient InstructionsTaEve devries CMA - 05/19/2016 4:12 PM CST Return to clinic in 2 weeks. EIN CHEMIST documented in this encounter Progress Notes Eve [...] behalf by Eve Sandoval, a trained medical laboratory technologist. The creation of this document is based the provider's statements to the medical laboratory technologist. Angelinaibdinorah Sandoval 4:11 PM, May 19, 2016 ASSESSMENT/PLAN: Rhonda Tamayo is a 30 year old year old @ 31w3d wks EGA with EDC 07/18/16 who presents to the clinic for an ob visit. 1) HSV, recurrent:?? one out break 1st tm, suppression 36 weeks on ?? 2) declined genetic testing ?? 3) Follow up in [address] Nadiya Bautista DO HISTOLOGY TEACHER [facility] The information in this document, created by the medical laboratory technologist for me, accurately reflects the services I personally performed and the decisions made by me. I have reviewed and approved this document for accuracy prior to leaving the patient care area. Nadiya Bautista DO 4:09 PM, 05/19/2016 EIN CHEMIST documented in this encounter Nursing Notes Eli [...] cuff size: regular right arm ALEXI Fleming EIN CHEMIST documented in this encounter Plan of Treatment Not on filedocumented as of this encounter Visit Diagnoses Diagnosis Encounter for supervision of normal firs t in third trimester - Primary Supervision of normal first documented in this encounter Additional Health Concerns Assessment Noted Time PHQ-9 Depression Total Score: 0 02/19/2016 7:19 AM CDT documented as of this encounter Care Teams Matrix Worker Relationship Specialty Start Date End Date Sarah [place] PA-C PCP - General Family Practice 10/21/11 [address] [place] [address] documented as of this encounter
--- OUTSIDE RECORDS SUMMARY | 2022-04-14 08:57 | XMS_ITS | Encounter Summary ---
:1985 Author Organization [place] Address [address] [place] [address] Care Team Providers Name Role Phone Sarah [place] PA-C Primary Care Provider Reason for Visit Reason Onset Date Comments Vaginal Discharge 07/02/2016 mucus plug Encounter Details Date Type Department Care Team Description 07/02/2016 Telephone [facility] Nadiya Bautista Vaginal Discharge [facility] DO [place] (mucus plug) [place] [address] [facility] [address] [place], [place] [address] [address] [place], [place] [phone] [address] (Work) [phone] Social History Tobacco Use Types Packs/Day Years [...] call with questions/concerns to nurse advisor line. OMER SERVICE MANAGER Telephone Encounter - Nadiya Bautista DO - 07/02/2016 4:32 PM CUSTOMER SERVICE MANAGER Please have her watch for contractions and if labor starts call back If the baby is moving well then ok to wait, labor could be soon but will have to wait For contractions 5 min apart for 1 hour, lasting [address] Nadiya Bautista DO Obstetrics and Gynecology [facility] OMER SERVICE MANAGER Telephone Encounter - Michelle Mayo - 07/02/2016 [...] but no bleeding today. Please advise, thanks. OMER SERVICE MANAGER documented in this encounter Plan of Treatment Not on filedocumented as of this encounter Visit Diagnoses Not on filedocumented in this encounter Additional Health Concerns Assessment Noted Time PHQ-9 Depression Total Score: 0 02/19/2016 7:19 AM CDT documented as of this encounter Care Teams Loan Services Professional Relationship Specialty Start Date End Date Sarah [place] PA-C PCP - General Family Practice 10/21/11 [address] [place] [address] documented as of this encounter
--- OUTSIDE RECORDS SUMMARY | 2022-04-14 08:57 | XMS_ITS | Encounter Summary ---
:1985 Author Organization [place] Address [address] [place] [address] Care Team Providers Name Role Phone Sarah [place] PA-C Primary Care Provider [phone] Encounter Details Date Type Department Care Team Description 12/20/2015 Radiant Appointment [facility] Nadiya Bautista Clinic [address] [place] [phone] Social History Tobacco Use Types Packs/Day Years [...] Narrative 12/21/2015 3:43 PM CDT Order #: [id number] Study Notes? Karley Damico on 12/20/2015 10:51 AM ?? [facility] Obstetrics & Gynecology [address] [place] [address] ULTRASOUND - EARLY OB (0-11 WEEKS) Referring Provider: Nadiya Bautista Clinic: [facility] INDICATIONS FOR ULTRASOUND: OB History: [...] documented as of this encounter Care Teams Internal Specialist Relationship Specialty Start Date End Date Sarah [place] PA-C PCP - General Family Practice 10/21/11 [address] [place] [address] documented as of this encounter
--- OUTSIDE RECORDS SUMMARY | 2022-04-14 08:57 | XMS_ITS | Encounter Summary ---
:1985 Author Organization [place] Address [address] [place] [address]. [place] [address] Care Team Providers Name Role Phone Sarah [place] PA-C Primary Care Provider [phone] Reason for Visit Reason Comments Care Encounter Details Date Type Department Care Team Description 01/14/2016 Office [facility] Nadiya Bautista care in Visit Clinic Marlborolaura Toledo DO first trimester [id number] [place] [address] (Primary Dx) [facility] [phone] [facility] [phone] [place] [address] Social History Tobacco Use Types Packs/Day [...] boyfriend. 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 Nadiya Bautista DO HIGHWAY TRAFFIC CONTROL TECHNICIAN [employer] documented in this encounter Nursing Notes Lupe [...] Laterality Volume Narrative 02/19/2016 10:33 AM CDT [employer] Obstetrics & Gynecology [address] [facility]. [address] [place] [address] ULTRASOUND - COMPLETE OB (18+) Referring Provider: Nadiya Bautista Clinic: [facility] INDICATIONS FOR ULTRASOUND: OB History: Present Conditions: Initial Survey (18-26 weeks) CLINICAL INFORMATION LMP: October 07 sure EDC: Jul 11 EGA: 18w3d Previous US: Yes Location: [facility] EDC: Jul 11 correspond MEASUREMENTS BPD: [...] Component Value Ref Test Analysis Performed At [facility] Range Method Time Signature Specimen Cervix [facility] N Gonorrhea Negative NEG [facility] PCR Negative for N. gonorrhoeae rRNA by transcripti on mediated amplification. [place] [facility] A negative result by transc ription [...] (specimen) AM CDT 10:33 AM CDT Nadiya [place] Lily [facility] LAB - MICRO GENERAL ORDERABL ES Performing Organization Address City/[facility]/ZIP Code Phon e Number [id number] [place] [address] Chlamydia trachomatis PCR (01/14/2016 10:28 AM CDT) Component Value Ref Test Analysis Performed At [facility] Range Method Time Signature Specimen Cervix [facility] Chlamydia Negative NEG [facility] Negative for C. trachomatis rRNA by manager financial planning mediated amplification. [place] [facility] PCR A negative result by transc ription [...] MICRO GENERAL ORDERABL ES Performing Organization Address City/[facility]/ZIP Code Phon e Number [address] [address] documented in this encounter Visit Diagnoses Diagnosis care in first trimester - Prima ry care in first trimester documented in this encounter Additional Health Concerns Assessment Noted Time PHQ-9 Depression Total Score: 0 09/07/2015 7:16 AM CDT documented as of this encounter Care Teams System Specialist Relationship Specialty Start Date End Date Ronaldo-Sarah Doshi PA-C PCP - General Family Practice 10/21/11 [address] [place] [address] documented as of this encounter
--- OUTSIDE RECORDS SUMMARY | 2022-04-14 08:57 | XMS_ITS | Encounter Summary ---
:1985 Author Organization [place] Address [facility] [place] [address] Care Team Providers Name Role Phone Sarah [place] PA-C Primary Care Provider Reason for Visit Reason Comments Abdominal Pain Encounter Details Date Type Department Care Team Description 05/17/2016 - Hospital Encounter [facility] Nadiya Bautista 05/18/2016 [facility] [place], DO [address] [facility] [address] [facility] [address] [place], [place] [phone] [address] Social History Tobacco Use Types Packs/Day [...] Comments Blood Pressure 112/77 05/17/2016 11:15 PM PILOT SUPERVISOR Pulse 70 05/17/2016 11:15 PM PILOT SUPERVISOR Temperature 37.1 ??C (98.7 ??F) 05/17/2016 11:15 PM PILOT SUPERVISOR Respiratory Rate 16 05/17/2016 11:15 PM PILOT SUPERVISOR Oxygen Saturation - - Inhaled Oxygen Concentration - - Weight 73 kg (161 lb) 05/17/2016 11:15 PM PILOT SUPERVISOR Height 167.6 cm (5' 6) 05/17/2016 11:15 PM PILOT SUPERVISOR Body Mass Index 25.99 05/17/2016 11:15 PM PILOT SUPERVISOR documented in this encounter Discharge Instructions Discharge InstructionsJoRossi bhardwaj RN - 05/18/2016 1:18 AM CST Discharge [...] (see handout) Call your doctor or nurse opener if your baby is moving less than [...] constipation Follow-up: As scheduled in the clinic T SUPERVISOR AttachmentsThe following attachments cannot be sent through Care Everywhere.ABIGAIL COUNTS (MICRONESIAN)CONSTIPATION (ADULT) (MICRONESIAN)BACK PAIN DURING , RELIEVING: TAILOR SIT, TRUNK TURN (MICRONESIAN)BACK PAIN (LOW) OR LEG PAIN: POSSIBLE CAUSES (MICRONESIAN)documented in this encounter Medications at Time of [...] floor with steady gait in stable condition. T SUPERVISOR Provider Notification - Rossi Kelly RN - [...] frequent urination. Orders received to DC home. T SUPERVISOR Plan of Care - Rossi Kelly RN - 05/17/2016 10:50 PM CST 31.1 here with c/o mid/lower back and pelvic pain when ambulating and sharp pain in her right hip. 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 Pt states she is constipated and takingprune juice. Assessment completed as charted, SVE closed. Will continue to monitor. T SUPERVISOR documented in this encounter Plan of Treatment Not on filedocumented as of this encounter Procedures Procedure Name Priority Date/Time Associated Comments Diagnosis WET PREPARATION STAT 05/17/2016 11:48 Results for this PM PILOT SUPERVISOR procedure are i n the results section. ROUTINE UA WITH STAT 05/17/2016 10:55 Results for this MICROSCOPIC REFLEX TO PM PILOT SUPERVISOR proced ure are in CULTURE the results section. documented in this encounter Results Wet prep (05/17/2016 11:48 PM PILOT SUPERVISOR) [facility] Method Time Signature Specimen Vagina [facility] Wet Prep Few WBC'S seen [place] No Trichomonas seen [facility] No clue cells seen [facility] No yeast seen Micro Report FINAL [place] Status 05/18/2016 [facility] Specimen Anatomical Collection Method Collection Time Receive d Time (Source) Location / / Volume Laterality Specimen from 05/17/2016 11:48 05/18/2016 vagina PM PILOT SUPERVISOR 12:15 AM PILOT SUPERVISOR (specimen) Nadiya Bautista DO LAB - MICRO GENERAL ORDERABL ES Performing Organization Address City/State/ZIP Code Phon e Number [place] [address] [address] [place] [address] [facility] [address] [phone] (ABNORMAL) UA with Microscopic reflex to Culture (05/17/2016 10:55 PM PILOT SUPERVISOR) [facility] Method Time Signature Color Urine Straw [facility] Appearance Urine Clear [facility] Glucose Urine Negative NEG mg/dL [facility] Bilirubin Urine Negative NEG [facility] Ketones Urine Negative NEG mg/dL [facility] Specific [place] 1.002 (L) 1.003 - [place] Urine 1.035 [facility] Blood Urine Negative NEG [facility] pH Urine 6.0 5.0 - 7.0 [place] pH [facility] Protein Albumin Negative NEG mg/dL [facility] Urobilinogen Normal 0.0 - 2.0 [place] mg/dL mg/dL [facility] Nitrite Urine Negative NEG [facility] Leukocyte Negative NEG [place] Esterase Urine [facility] Source Midstream [facility] WBC Urine 0 0 - 2 [facility] /HPF [facility] RBC Urine 0 0 - 2 [facility] /HPF [facility] Bacteria Urine Few (A) NEG /HPF [facility] Squamous <1 0 - 1 [place] Epithelial /HPF /HPF [place] Urine [facility] Specimen Anatomical Collection Method Collection Time Receive d Time (Source) Location / / Volume Laterality Urine specimen URINE SPECIMEN 05/17/2016 10:55 016 (specimen) OBTAINED BY CLEAN PM PILOT SUPERVISOR 11:[address] CATCH PROCEDURE / Unknown Nadiya Bautista DO LAB - URINE ORDERABLES Performing Organization Address City/State/ZIP Code Phon e Number [place] [address] [address] [place], [place] [address] [facility] [address] [place], [place] [address] [facility] [phone] documented in this encounter Visit Diagnoses Diagnosis Encounter for triage in patient documented in this encounter Additional Health Concerns Assessment Noted Time PHQ-9 Depression Total Score: 0 02/19/2016 7:19 AM CDT documented as of this encounter Care Teams Environmental Technology Professor Relationship Specialty Start Date End Date Sarah [place] PA-C PCP - General Family Practice 10/21/11 [address] [place] [address] documented as of this encounter
--- OUTSIDE RECORDS SUMMARY | 2022-04-14 08:57 | XMS_ITS | Encounter Summary ---
:1985 Author Organization [place] Address [facility] [place] [address] Care Team Providers Name Role Phone Sarah [place] PA-C Primary Care Provider [phone] Reason for Visit Reason Comments Home Care/Hospice Encounter Details Date Type Department Care Team Description 07/13/2016 Documentation Only [facility] and [facility], Home Care/Hospice Hospice [address] [place] [address] [facility] [address] [place] [address] Social History Tobacco Use Types Packs/Day Years Used Date Smoking Tobacco: Former Smokeless Tobacco: Never Alcohol Use Standard Drinks/Week Comments No 0 (1 standard drink = 0.6 oz pure alcoho l) Sex Assigned at Date Recorded Not on file documented as of this encounter Progress Notes Rhonda Mercedes - 07/13/2016 10:10 AM CST [facility] Hospice now requests orders and shares plan of care/discharge summaries for some patients through [facility]. Thank you for your assistance in improving collaboration for our patients. [facility] has made 2 attempts to contact patient by phone and text message over the last 4 days to offer a home visit. We have not had any response from patient. Final message was left advising patient to follow up with Primary Care Providers for mom and baby. Thank you for the referral. Sincerely, [facility] [phone] RATOR OPERATOR [employer] documented in this encounter Plan of Treatment Not on filedocumented as of this encounter Visit Diagnoses Not on filedocumented in this encounter Additional Health Concerns Assessment Noted Time PHQ-9 Depression Total Score: 0 02/19/2016 7:19 AM CDT documented as of this encounter Care Teams Senior Php Software Developer Relationship Specialty Start Date End Date Sarah [place] PA-C PCP - General Family Practice 10/21/11 [address] [place] [address] documented as of this encounter
--- OUTSIDE RECORDS SUMMARY | 2022-04-14 08:57 | XMS_ITS | Encounter Summary ---
:1985 Author Organization [place] Address [address] [place] [address]. [place] [address] Care Team Providers Name Role Phone Sarah [place] PA-C Primary Care Provider [phone] Reason for Visit Reason Comments Care Encounter Details Date Type Department Care Team Description 06/16/2016 Office [facility] Nadiya Bautista for Visit Clinic [facility] supervision of [address] first in [place], [place] S third trimester [address] [place], (Primary Dx) [phone] [place] [address] Social History Tobacco Use Types [...] Comments Blood Pressure 120/80 06/16/2016 11:29 AM SKEIN BANDER Pulse 77 06/16/2016 11:29 AM SKEIN BANDER Temperature 36.8 ??C (98.2 ??F) 06/16/2016 11:29 AM SKEIN BANDER Respiratory Rate - - Oxygen Saturation 99% 06/16/2016 11:29 AM SKEIN BANDER Inhaled Oxygen Concentration - - Weight 80.4 kg (177 lb 3.2 oz) 06/16/2016 11:29 AM SKEIN BANDER Height 167.6 cm (5' 6) 06/16/2016 11:29 AM SKEIN BANDER Body Mass Index 28.6 06/16/2016 11:29 AM SKEIN BANDER documented in this encounter Patient Instructions Patient InstructionsNadiya Bautista DO - 06/16/2016 11:36 AM CST Images from the original note were not included. Return weekly Dr. Nadiya Bautista DO Obstetrics and Gynecology [facility] and [place] Plan Worksheet NAME: ATTENDANTS I'd like the following people to be present during labor and/or : Partner: Friend/s: Relative/s: Estimating Engineer: Children: AMENITIES I'd like to: bring music [...] knees whatever feels right at the time [facility] Plan worksheet - page 3 VAGINAL During [...] as soon as possible after the . [place] Plan worksheet - page 4 FEEDING ISSUES [...] deciding about the timing of hospital discharge N BANDER documented in this encounter Progress Notes Kiarra [...] behalf by Eli Ignacio, a trained medical data analyst. The creation of this document is based the provider's statements to the medical data analyst. Eli Ignacio June 16, 2016 11:33 AM See OB flowsheet No vaginal bleeding, no LOF, no contractions ASSESSMENT/PLAN: Rhonda Tamayo is a 30 year old year old @ 35w3d wks EGA with @edc@ who presents to the clinic for an ob visit. 1) Return to clinic in 1 week. 2) Complete GBS test at next visit. Dr. Nadiya Bautista DO HULL OUTFIT SUPERVISOR [facility] N BANDER documented in this encounter Nursing Eli Antonio - 06/16/2016 11:30 AM CST Chief Complaint [...] cuff size: regular right arm ALEXI Fleming N BANDER documented in this encounter Plan of Treatment Not on filedocumented as of this encounter Visit Diagnoses Diagnosis Encounter for supervision of normal firs t in third trimester - Primary Supervision of normal first documented in this encounter Additional Health Concerns Assessment Noted Time PHQ-9 Depression Total Score: 0 02/19/2016 7:19 AM CDT documented as of this encounter Care Teams General House Worker Relationship Specialty Start Date End Date Sarah [place] PA-C PCP - General Family Practice 10/21/11 [address] [place] [address] documented as of this encounter
--- OUTSIDE RECORDS SUMMARY | 2022-04-14 08:57 | XMS_ITS | Encounter Summary ---
:1985 Author Organization [place] Address [address] [place] [address] Care Team Providers Name Role Phone Sarah Montgomery PA-C Primary Care Provider [phone] Encounter Details Date Type Department Care Team Description 05/17/[address] [facility] Angelique Xie, RN [address] [place] [address] Social History Tobacco Use Types Packs/Day Years Used Date Smoking Tobacco: Former Smokeless Tobacco: Never Comments: quit smoking 2months ago Alcohol Use Standard Drinks/Week Comments Yes 0 (1 standard drink = 0.6 oz pure alcoho l) occasionally - weekends Sex Assigned at Date Recorded Not on file documented as of this encounter Miscellaneous Notes Telephone Encounter - Angelique Xie, RN - 05/17/2016 10:05 PM CST Call Type: Triage Call Presenting Problem: ' Low right sided pain , in pelvic area , and in low back She is , 31 weeks . EVE 2-24 . Paged contact center director to her thru [employer] . 10:02 pm . Call [phone] . Triage Note: Guideline Title: : Labor, [...] hour. Follow the directions from your provider's contact center director resource if you are unable to speak [...] to push or have a bowel movement. LOGY PROFESSOR documented in this encounter Plan of Treatment Not on filedocumented as of this encounter Visit Diagnoses Not on filedocumented in this encounter Additional Health Concerns Assessment Noted Time PHQ-9 Depression Total Score: 0 02/19/2016 7:19 AM CDT documented as of this encounter Care Teams State Trooper Relationship Specialty Start Date End Date Ronaldo-Sarah Doshi PA-C PCP - General Family Practice 10/21/11 [address] [place] [address] documented as of this encounter
--- OUTSIDE RECORDS SUMMARY | 2022-04-14 08:57 | XMS_ITS | Encounter Summary ---
:1985 Author Organization [place] Address [address] [place] [address]. [place] [address] Care Team Providers Name Role Phone Sarah Montgomery PA-C Primary Care Provider [phone] Encounter Details Date Type Department Care Team Description 02/18/2016 Radiant Appointment [facility] Nadiya Bautista renatal care in Clinic [facility] first trimester [address] [facility] [address] [facility] [phone] Social History Tobacco Use Types Packs/Day Years [...] [facility] Obstetrics & Gynecology [address] [facility]. [address] [place] [address] ULTRASOUND - COMPLETE OB (18+) Referring Provider: Nadiya Bautista Clinic: [facility] INDICATIONS FOR ULTRASOUND: OB History: Present Conditions: Initial Survey (18-26 weeks) CLINICAL INFORMATION LMP: October 07 sure EDC: Jul 11 EGA: 18w3d Previous US: Yes Location: [place] EDC: Jul 11 correspond MEASUREMENTS BPD: 4.4cm [...] EGA and EDC. Christina Mendiola M.D. Nadiya Parisdinorah Bautista DO IMG US ORDERABLES documented in this encounter Visit Diagnoses Diagnosis care in first trimester documented in this encounter Additional Health Concerns Assessment Noted Time PHQ-9 Depression Total Score: 0 02/19/2016 7:19 AM CDT documented as of this encounter Care Teams Clay Temperer Relationship Specialty Start Date End Date Sarah Montgomery PA-C PCP - General Family Practice 10/21/11 [address] [place] [address] documented as of this encounter
--- OUTSIDE RECORDS SUMMARY | 2022-04-14 08:57 | XMS_ITS | Encounter Summary ---
:1985 Author Organization [place] Address [address] [place] [address]. [place] [address] Care Team Providers Name Role Phone Sarah Montgomery PA-C Primary Care Provider Reason for Visit Reason Comments Care Encounter Details Date Type Department Care Team Description 06/23/2016 Office [facility] Nadiya Bautista care in Visit Clinic [facility] third trimester [address] [place] [address] (Primary Dx) [facility] [phone] [place] [address] Social History Tobacco Use Types Packs/Day [...] Comments Blood Pressure 90/66 06/23/2016 11:24 AM ELECTRIC REFRIGERATOR PREPARER Pulse 81 06/23/2016 11:24 AM ELECTRIC REFRIGERATOR PREPARER Temperature 36.7 ??C (98 ??F) 06/23/2016 11:24 AM ELECTRIC REFRIGERATOR PREPARER Respiratory Rate - - Oxygen Saturation 98% 06/23/2016 11:24 AM ELECTRIC REFRIGERATOR PREPARER Inhaled Oxygen Concentration - - Weight 80.5 kg (177 lb 6.4 oz) 06/23/2016 11:24 AM ELECTRIC REFRIGERATOR PREPARER Height 167.6 cm (5' 6) 06/23/2016 11:24 AM ELECTRIC REFRIGERATOR PREPARER Body Mass Index 28.63 06/23/2016 11:24 AM ELECTRIC REFRIGERATOR PREPARER documented in this encounter Patient Instructions Patient InstructionsNadiya Bautista DO - 06/23/2016 11:34 AM CST Return weekly Remember to do kick counts Perception of at least 10 FMs during 12 hours of normal maternal activity Perception of least 10 FMs over two hours when the mother is at rest and focused on counting Dr. Nadiya Bautista DO Obstetrics and Gynecology [facility] TRIC REFRIGERATOR PREPARER documented in this encounter Progress Notes Nadiya [...] behalf by Eli Ignacio, a trained medical staff assistant. The creation of this document is based the provider's statements to the medical staff assistant. Eli Ignacio June 23, 2016 11:30 AM [...] in this document, created by the medical staff assistant for me, accurately reflects the services I personally performed and the decisions made by me. I have reviewed and approved this document for accuracy prior to leaving the patient care area. Nadiya Bautista DO June 23, 2016 11:30 AM TRIC REFRIGERATOR PREPARER documented in this encounter Nursing Notes Eli [...] cuff size: regular right arm ALEXI Fleming TRIC REFRIGERATOR PREPARER documented in this encounter Plan of Treatment Not on filedocumented as of this encounter Procedures Procedure Name Priority Date/Time Associated Diagnosis Comme nts GROUP B STREP PCR Routine 06/23/2016 12:15 PM care in Results for this ELECTRIC REFRIGERATOR PREPARER third trimester procedure ar e in the results section. documented in this encounter Results Strep, Group B by PCR (06/23/2016 12:15 PM ELECTRIC REFRIGERATOR PREPARER) [facility] Method Time Signature Group B Strep Vaginal [place] PCR Spec Sebastian Rectal [facility] Group B Strep Negative NEG [facility] No GBS DNA detected, presumed negative f or GBS or number of bacteria may be [facility] below the limit of detection of the assay. [facility] Assay performed on incubate d broth culture of specimen using [employer] real-time BANK PCR. Specimen Anatomical Collection Method Collection Time Receive d Time (Source) Location / / Volume Laterality 06/23/2016 12:15 06/23/2016 PM ELECTRIC REFRIGERATOR PREPARER 12:20 PM ELECTRIC REFRIGERATOR PREPARER Nadiya Bautista DO LAB - MICRO GENERAL ORDERABL ES Performing Organization Address City/State/ZIP Code Phon e Number [facility] [address] [place] [address] [facility] [address] [place] [address] documented in this encounter Visit Diagnoses Diagnosis care in third trimester - Prima ry documented in this encounter Additional Health Concerns Assessment Noted Time PHQ-9 Depression Total Score: 0 02/19/2016 7:19 AM CDT documented as of this encounter Care Teams Dialysis Tech Relationship Specialty Start Date End Date Sarah Montgomery PA-C PCP - General Family Practice 10/21/11 [address] [place] [address] documented as of this encounter
--- OUTSIDE RECORDS SUMMARY | 2022-04-14 08:58 | XMS_ITS | Encounter Summary ---
:1985 Author Organization [place] Address [address] [place] [address] Care Team Providers Name Role Phone Sarah Montgomery PA-C Primary Care Provider Reason for Visit Reason Comments Constipation Encounter Details Date Type Department Care Team Description 09/20/2015 Office Visit [facility] Karolina Carl al hemorrhoids Clinic Reshma Frankel MD (Primary Dx) [address] [address] [phone] Social History Tobacco Use Types Packs/Day Years [...] leatha. These are available at most drugstores. Vfnm-jmq-nufofla hemorrhoid ointments and petroleum jelly can also [...] plenty of water when you exercise. ?? [id number] [employer]. [address] [place] [address]. All rights reserved. This information is not [...] Age of Onset ??? Heart Disease Father [place] at age 42 ??? Depression [...] needed for ongoing issues Karolina Carl MD [facility] documented in this encounter Nursing Notes Sushil [...] (68.493 kg). BP completed using cuff size: patricia Ford CMA documented in this encounter Plan of Treatment Not on filedocumented as of this encounter Visit Diagnoses Diagnosis External hemorrhoids - Primary External hemorrhoids without mention of complication documented in this encounter Additional Health Concerns Assessment Noted Time PHQ-9 Depression Total Score: 0 09/07/2015 7:16 AM CDT documented as of this encounter Care Teams Automobile Repossessor Relationship Specialty Start Date End Date Sarah Montgomery PA-C PCP - General Family Practice 10/21/11 [address] [place] [address] documented as of this encounter
--- OUTSIDE RECORDS SUMMARY | 2022-04-14 08:58 | XMS_ITS | Encounter Summary ---
:1985 Author Organization [place] Address [address] [place] [address] Care Team Providers Name Role Phone Sraah Montgomery PA-C Primary Care Provider [phone] Encounter Details Date Type Department Care Team Description 11/22/2013 [facility] Zarina Murillo, RN [address] [place] [address] Social History Tobacco Use Types Packs/Day Years Used Date Smoking Tobacco: Former Smokeless Tobacco: Never Comments: quit smoking 2months ago Alcohol Use Standard Drinks/Week Comments Yes 0 (1 standard drink = 0.6 oz pure alcoho l) occasionally Sex Assigned at Date Recorded Not on [...] on filedocumented in this encounter Care Teams Reservations Specialist Relationship Specialty Start Date End Date Sarah Montgomery PA-C PCP - General Family Practice 10/21/11 [address] [place] [address] documented as of this encounter
--- OUTSIDE RECORDS SUMMARY | 2022-04-14 08:58 | XMS_ITS | Encounter Summary ---
:1985 Author Organization [place] Address [address] [place] [address] Care Team Providers Name Role Phone Sarah Montgomery PA-C Primary Care Provider [phone] Reason for Visit Reason Onset Date Comments Medication Question 12/18/2015 herpes in early preg adalberto Encounter Details Date Type Department Care Team Description 12/18/2015 Telephone [facility] Nadiya Bautista on Question Clinic Reshma Toledo DO (herpes in early [address] ) [place] [id number] Social History Tobacco Use Types Packs/Day Years [...] which is safe in . Dr. Nadiya Bautista, Obstetrics and Gynecology [facility] Telephone Encounter - Christine Colunga RN - [...] Simplex 1.7 (H) 0.0 - 0.8 UNIVERSITY Virus Type 1 AI [facility] Comment: Positive. ??IgG antibody to HSV-1 detect ed. Antibody index (AI) values reflect qual itative changes in antibody concentration that cannot be directly a ssociated with clinical condition or disease state. Herpes Simplex <0.2 0.0 - 0.8 AI [facility] Virus Type 2 IgG No HSV-2 IgG antibodies detected. [facility] Antibody index (AI) values reflect qualitative changes in a [facility] concentration that cannot be directly associated with clinical condition or disease state. Specimen Anatomical Collection Method Collection Time Receive d Time (Source) Location / / Volume Laterality Blood specimen 12/24/2015 9:28 AM 016 9:33 (specimen) CDT AM CDT Nadiya Bautista DO LAB - BLOOD ORDERABLES Performing Organization Address City/State/ZIP Code Phon e Number [facility] [address] [place] [address] [facility] HSV IgM antibody (12/24/2015 9:28 AM CDT) P athologist Signature Herpes Simplex 0.71 0.00 - [facility] Virus IgM 0.89 Index [facility] Antibody Value [facility] Comment: No detectable antibody. A negative test result does not rule ou t a primary or reactivated infection. Specimen Anatomical Collection Method Collection Time Receive d Time (Source) Location / / Volume Laterality Blood specimen 12/24/2015 9:28 AM 016 9:33 (specimen) CDT AM CDT Nadiya Bautista DO LAB - BLOOD ORDERABLES Performing Organization Address City/State/ZIP Code Phon e Number [facility] [address] [place], [place] [phone] [place] [address] documented in this encounter Visit Diagnoses Diagnosis HSV (herpes simplex virus) infection - P rimary Herpes simplex without mention of compli cation documented in this encounter Additional Health Concerns Assessment Noted Time PHQ-9 Depression Total Score: 0 09/07/2015 7:16 AM CDT documented as of this encounter Care Teams Government Clerk Relationship Specialty Start Date End Date Sarah Montgomery PA-C PCP - General Family Practice 10/21/11 [address] [place] [address] documented as of this encounter
--- OUTSIDE RECORDS SUMMARY | 2022-04-14 08:58 | XMS_ITS | Encounter Summary ---
:1987 Author Organization [place] Address [address] [place] [address]. [place] [address] Care Team Providers Name Role Phone Sarah Montgomery PA-C Primary Care Provider [phone] Reason for Visit Reason Onset Date Comments Symptoms 11/22/2013 Encounter Details Date Type Department Care Team Description 11/22/2013 Telephone Adult Call Center Unknown, Provider Symptoms [address] [phone] Social History Tobacco Use Types Packs/Day Years Used Date Smoking Tobacco: Former Smokeless Tobacco: Never Comments: quit smoking 2months ago Alcohol Use Standard Drinks/Week Comments Yes 0 (1 standard drink = 0.6 oz pure alcoho l) occasionally Sex Assigned at Date Recorded Not on file documented as of this encounter Miscellaneous Notes Telephone Encounter - Yon, Nilsa - 11/22/2013 8:32 AM CDT Assessment: Pt [...] on filedocumented in this encounter Care Teams Amphibian Crewmember Relationship Specialty Start Date End Date Sarah Montgomery PA-C PCP - General Family Practice 10/21/11 [address] [place] [address] documented as of this encounter
--- OUTSIDE RECORDS SUMMARY | 2022-04-14 08:58 | XMS_ITS | Encounter Summary ---
:1985 Author Organization [place] Address [address] [place] [address] Care Team Providers Name Role Phone Sarah Montgomery PA-C Primary Care Provider [phone] Reason for Visit Reason Comments Urinary Problem Encounter Details Date Type Department Care Team Description 03/03/2014 Office Visit [facility] Thelma Doshi Dysuria ( Primary Dx); Clinic [facility] ARPAN Dunaway PROCESS CONTROL SPECIALIST Vaginal burning [address] [address] [place] [phone] [address] Social History Tobacco Use Types Packs/Day [...] NEG Ketones Urine Negative NEG mg/dL Specific [place] Urine 1.010 1.003 - 1.035 Blood Urine [...] fevers, signs or symptoms. Thelma Doshi NP [facility] documented in this encounter Nursing Notes Sushil Ford CMA - 03/03/2014 3:26 PM CDT Chief Complaint [...] (67.132 kg). BP completed using cuff size: patricia [...] Results Wet prep (03/03/2014 3:44 PM CDT) [facility] gist Method Time Signature Specimen Vagina DRIVER Description [facility] Wet Prep No Trichomonas seen DRIVER No clue cells seen [facility] No yeast seen [facility] Micro Report FINAL DRIVER Status 03/03/2014 [facility] Specimen Anatomical Collection Method Collection Time Receive d Time (Source) Location / / Volume Laterality 03/03/2014 3:44 PM 4 3:49 CDT PM CDT Thelma Doshi APRN PROCESS CONTROL SPECIALIST LAB - MICRO GENERAL ORDERAB LES Performing Organization Address City/[facility] Phon e Number [facility] [address] [place] [address] *UA reflex to Microscopic and Culture (03/03/2014 3:22 PM CDT) Patholo gist Method Time Signature Color Urine Yellow [facility] Appearance Urine Clear [facility] Glucose Urine Negative NEG mg/dL [facility] Bilirubin Urine Negative NEG [facility] Ketones Urine Negative NEG mg/dL [facility] Specific [place] 1.010 1.003 - DRIVER Urine 1.035 [facility] Blood Urine Negative NEG [facility] pH Urine 7.0 5.0 - 7.0 DRIVER pH [facility] Protein Albumin Negative NEG mg/dL DRIVER Urine [facility] Urobilinogen 0.2 0.2 - 1.0 DRIVER Urine EU/dL [facility] Nitrite Urine Negative NEG [facility] Leukocyte Negative NEG DRIVER Esterase Urine [facility] Source Midstream DRIVER Urine [facility] Specimen Anatomical Collection Method Collection Time Receive d Time (Source) Location / / Volume Laterality Urine specimen 03/03/2014 3:22 PM 014 3:27 (specimen) CDT PM CDT Thelma Doshi APRN PROCESS CONTROL SPECIALIST LAB - URINE ORDERABLES Performing Organization Address City/State/ZIP Code Phon e Number [facility] [address] [place] [address] documented in this encounter Visit Diagnoses Diagnosis Dysuria - Primary Vaginal burning Other specified symptom associated with female genital organs documented in this encounter Care Teams Industrial Education Instructor Relationship Specialty Start Date End Date Sarah Montgomery PA-C PCP - General Family Practice 10/21/11 [address] [place] [address] documented as of this encounter
--- OUTSIDE RECORDS SUMMARY | 2022-04-14 08:58 | XMS_ITS | Encounter Summary ---
:1985 Author Organization [place] Address [address] [place] [address] Care Team Providers Name Role Phone Sarah Montgomery PA-C Primary Care Provider Reason for Referral Consultation - Closed Specialty Diagnoses / Procedures Referred By Contact Refer red To Contact Diagnoses Itching of ear Sarah Montgomery [facility] Aguilar PA-C [address] [place], [address] [facility] [address] [place] [address] [place] [address] Fax: Referral ID Status Reason Start Date Expiration Date Visits Requ ested Visits Authorized [id number] Closed 11/16/2014 05/15/2015 1 1 Reason for Visit Reason Comments Other itchy eyes and throat due to allergy Encounter Details Date Type Department Care Team Description 11/16/2014 Office Visit [facility] Shaheen Montgomery g of ear (Primary Dx); Clinic [place] Sarah Aguilar PA-C Screen for STD (sexually transmitted dis ease); [address] [facility] [address] [place] [address] [phone] Social History Tobacco Use Types Packs/Day Years [...] Rene PA-C - 11/16/2014 9:04 AM CDT (638.9) Itching of ear (primary encounter diagnosis) Comment: [...] factors: r ?? Therapies Tried and outcome: niyair Problem list and histories reviewed & adjusted, as indicated. Additional history: as documented Current Outpatient Prescriptions Medication Sig Dispense Refill ??? vitamin D (ERGOCALCIFEROL) 42274 UNIT capsule Take 1 capsule (50,000 Units) [...] 10 mg daily Follow-up with ENT Sarah Mongtomery PA-C, [facility] documented in this encounter Nursing Notes [...] Component Value Ref Test Analysis Performed At [facility] Streamup Range Method Time Signature Specimen Urine [facility] Chlamydia Negative NEG UNIV[facility]ITY Trachomatis Negative for C. trachomatis rRNA by electronic warfare specialist mediated amplification. [facility] PCR A negative result by [...] Code Phon e Number [facility] [address] [place] [address] [facility] [address] [place] [address] NEISSERIA GONORRHOEA PCR (11/16/2014 9:12 AM CDT) Component Value Ref Test Analysis Performed At [facility] Fotoup Method Time Signature Specimen Urine [facility] N Gonorrhea Negative NEG [facility]ITY [facility] Negative for N. gonorrhoeae rRNA by transcripti on mediated amplification. [facility] A negative result by transc [...] MICRO GENERAL OR DERABLES Performing Organization Address City/[facility]/ZIP Code Phon e Number [facility] [address] [address] [place] [address] HIV Antigen Antibody Combo (11/16/2014 9:11 AM CDT) [facility] gist Method Time Signature HIV Antigen Nonreactive NR [facility]ERS[facility] OF Antibody HIV-1 p24 Ag & HIV-1/HIV-2 Ab Not Detected [facility] Combo [facility] Specimen Anatomical Collection Method Collection Time Receive d Time (Source) Location / / Volume Laterality Blood specimen 11/16/2014 9:11 AM 015 9:12 (specimen) CDT AM CDT Sarah Montgomery PA-C LAB - BLOOD ORDERABLES Performing Organization Address [facility] Phon e Number [facility] [address] documented in this encounter Visit Diagnoses Diagnosis Itching of ear - Primary Unspecified pruritic disorder Screen for STD (sexually transmitted dis ease) Screening examination for venereal disea se Depression Depressive disorder, not elsewhere class ified documented in this encounter Care Teams Diesel Engine Ii Pipe Fitter Relationship Specialty Start Date End Date Sarah Montgomery PA-C PCP - General Family Practice 10/21/11 [address] [place] [address] documented as of this encounter
--- OUTSIDE RECORDS SUMMARY | 2022-04-14 08:58 | XMS_ITS | Encounter Summary ---
:1985 Author Organization [place] Address [address] [place] [address] Care Team Providers Name Role Phone Sarah Montgomery PA-C Primary Care Provider [phone] Reason for Visit (Routine) - Closed Specialty Diagnoses / Procedures Referred By Contact Refer red To Contact Radiology / Radiology. Diagnoses epic, sb pt, MRI safe Rh Mri Procedures MR BRAIN WWO [address] [place] [address] Phone: Fax: Referral ID Status Reason Start Date Expiration Date Visits Requ ested Visits Authorized [id number] Closed 10/05/2014 10/05/2015 1 1 Encounter Details Date Type Department Care Team Description 10/11/2014 Hospital Encounter [facility] Poonam Rosales; [facility] ARPAN Toledo CNP Headache(784.0) [address] [facility] [address] [facility] [address] [place], [place] [phone] [address] Social History Tobacco Use Types Packs/Day [...] Take 1 capsule 8 capsule 0 10/0611/25/2014 57781 UNIT (50,000 Units) by capsuleIndications: mouth every 7 days Vitamin D deficiency for 8 doses Cholecalciferol (VITAMIN Take 2,000 Units 100 tablet 3 10/0605/24/2015 D) 2000 UNITS by mouth daily tabletIndications: Vitamin D deficiency montelukast (SINGULAIR) 10 Take 1 tablet (10 90 tablet 3 05/24/2015 MG tabletIndications: mg) by mouth At Allergic rhinitis, Bedtime Seasonal allergic rhinitis, Ear itching rwtqjhfo-zmnnrhgpq-fyskxfw Place 4 drops into 10 mL 0 0 10/05/2014 11/16/2014 rtisone (CORTISPORIN) both ears 4 times 3.5-02456-2 otic daily suspensionIndications: Eczema of both external [...] rmalities are identified. ANTELMO DAVIES MD Poonam [place] Connie ANTONY PRODUCTION SOUND MIXER IMG MRI ORDERABLES documented in this encounter Visit Diagnoses Diagnosis Dizziness Dizziness and giddiness Headache(784.0) Headache documented in this encounter Care Teams Boom Pump Operator Relationship Specialty Start Date End Date Sarah Montgomery PA-C PCP - General Family Practice 10/21/11 [address] [place] [address] documented as of this encounter
--- OUTSIDE RECORDS SUMMARY | 2022-04-14 08:58 | XMS_ITS | Encounter Summary ---
:1985 Author Organization [place] Address [address] [place] [address] Care Team Providers Name Role Phone Sarah Montgomery PA-C Primary Care Provider [phone] Reason for Visit Reason Comments Insect Bites Encounter Details Date Type Department Care Team Description 11/21/2014 Office Visit [facility] Ryan Villalobos (Primary Clinic Reshma Rocha MD Dx) [address] [place] [address] Social History Tobacco Use Types [...] 20 capsule; Refill: 0 Ryan Villalobos MD [facility] documented in this encounter Nursing Notes [...] follicles documented in this encounter Care Teams Benefits Manager Relationship Specialty Start Date End Date Sarah Montgomery PA-C PCP - General Family Practice 10/21/11 [address] [place] [address] documented as of this encounter
--- OUTSIDE RECORDS SUMMARY | 2022-04-14 08:58 | XMS_ITS | Encounter Summary ---
:1985 Author Organization [facility] Address [address] [place] [address] Care Team Providers Name Role Phone Sarah Montgomery PA-C Primary Care Provider + [phone] Reason for Visit Reason Comments Depression Encounter Details Date Type Department Care Team Description 03/01/2014 Office Visit [facility] Miguel Chawla Depress ion with anxiety (Primary Dx); Clinic Aldie ARPAN Gillis DRAPERY COUNSELOR Anxiety [address] [phone] [id number] Social History Tobacco Use Types Packs/Day Years [...] documented in this encounter Patient Instructions Patient InstructionsNenita Miguel Hughesan, SEYMOUR - 03/01/2014 10:26 AM CDT Images from [...] for 3 days in a row ?? 7890-5235 [facility], [address] [place] [address], [place] [address]. All rights reserved. This information is not [...] Heart Father [place] at age 42 ??? Depression Father ??? [...] effects reviewed with patient. Miguel Chawla NP [facility] documented in this [...] (66.225 kg). BP completed using cuff size: regular Sushil Ford CMA documented in this encounter Miscellaneous Notes Addendum Note - Miguel Chawla NP - 06/01/2014 10:07 AM BAR MACHINE OPERATOR PRODUCTION Addended by: MIGUEL CHAWLA on: 06/01/2014 10:07 AM Modules accepted: SmartSet MACHINE OPERATOR PRODUCTION Addendum Note - Rick Cordero CMA - 03/01/2014 12:48 PM CDT Addended by: RICK CORDERO on: 03/01/2014 12:48 PM Modules accepted: Orders, SmartSet documented in this encounter Plan of Treatment Not on filedocumented as of this encounter Visit Diagnoses Diagnosis Depression with anxiety - Primary Dysthymic disorder Anxiety Anxiety state, unspecified documented in this encounter Care Teams Hide Sorter Relationship Specialty Start Date End Date Sarah Montgomery PA-C PCP - General Family Practice 10/21/11 [address] [place] [address] documented as of this encounter
--- OUTSIDE RECORDS SUMMARY | 2022-04-14 08:58 | XMS_ITS | Encounter Summary ---
:1985 Author Organization [facility] Address [address] [place] [address]. [place] [address] Care Team Providers Name Role Phone Sarah Montgomery PA-C Primary Care Provider [phone] Reason for Visit Reason Comments Complications cramping, 6 weeks Encounter Details Date Type Department Care Team Description 11/20/2015 Office Visit [facility] Derick Robles Uterine c ramping (Primary Dx); Clinic Donald Sprague MD Missed menses; [place] [address] [facility] Slow transit [facility], [address] [place] [address] Social History Tobacco Use [...] CDT documented in this encounter Progress Notes Robles, Derick Celestine, MD - 11/19/2015 9:32 AM CDT HPI SUBJECTIVE: Rhonda Tamayo is a 30 year old female who presents to clinic today for the following health issues: Recently aprox 6 weeks, started feeling mild cramping intermittently 4- 5 days ago worse at night. Postive 8 days ago. LMP approx 10/12/15. 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, does also have some issues [...] logist Time Signature HCG Quantitative 11,668 IU/L [facility] Comment: Non- ?0 - 5 , [...] Address City/State/ZIP Code Phon e Number M [facility] [address] [place] [place], [place] [address] [facility] [address] [place] [address] [facility] [phone] HCG quantitative (11/20/2015 9:05 AM CDT) P athologist Signature HCG Quantitative 8,682 IU/L [facility] Comment: Non- ?0 - 5 , [...] Phon e Number M [facility] [address] [phone] [facility] [address] [place] [address], [facility] [phone] *UA reflex to Microscopic (11/20/2015 8:52 AM CDT) Patholo gist Method Time Signature Color Urine Yellow [facility] Appearance Urine Clear [facility] Glucose Urine Negative NEG mg/dL [facility] Bilirubin Urine Negative NEG [facility] Ketones Urine Negative NEG mg/dL [facility] Specific [place] <=1.005 1.003 - [place] Urine 1.035 [facility] Blood Urine Negative NEG [facility] pH Urine 5.0 5.0 - 7.0 [place] pH [facility] Protein Albumin Negative NEG mg/dL [place] Urine [facility] Urobilinogen 0.2 0.2 - 1.0 [place] Urine EU/dL [facility] Nitrite Urine Negative NEG [facility] Leukocyte Negative NEG [place] Esterase Urine [facility] Source Midstream [place] Urine [facility] Specimen Anatomical Collection Method Collection Time Receive d Time (Source) Location / / Volume Laterality Urine specimen 11/20/2015 8:52 AM 016 8:58 (specimen) CDT AM CDT Derick Robles MD LAB - URINE ORDERABLES Performing Organization Address City/[facility] Code Phon e Number [address] [phone] (ABNORMAL) Beta HCG qual IFA urine (11/20/2015 8:52 AM CDT) [facility] Method Time Signature Beta HCG Qual Positive (A) NEG [place] IFA Urine [facility] Specimen Anatomical Collection Method Collection Time Receive d Time (Source) Location / / Volume Laterality Urine specimen 11/20/2015 8:52 AM 016 8:58 (specimen) CDT AM CDT Derick Robles MD LAB - URINE ORDERABLES Performing Organization Address City/[facility] Phon e Number [address] [address] documented in this encounter Visit Diagnoses Diagnosis Uterine cramping - Primary Missed menses Absence of menstruation Slow transit constipation documented in this encounter Additional Health Concerns Assessment Noted Time PHQ-9 Depression Total Score: 0 09/07/2015 7:16 AM CDT documented as of this encounter Care Teams Physics Instructor Relationship Specialty Start Date End Date Ronaldo-Sarah Doshi PA-C PCP - General Family Practice 10/21/11 [address] [place] [address] documented as of this encounter
--- OUTSIDE RECORDS SUMMARY | 2022-04-14 08:58 | XMS_ITS | Encounter Summary ---
:1985 Author Organization [facility] Address [address] [facility] [place] [address] Care Team Providers Name Role Phone Sarah Montgomery PA-C Primary Care Provider Reason for Referral Vision Services - Closed Specialty Diagnoses / Procedures Referred By Contact Refer red To Contact Diagnoses Dizziness Poonam Rosales APRN [facility]IN[facility] SURGEON [address] [facility] [address] [place] [address] [place] [address] Referral ID Status Reason Start Date Expiration Date Visits Requ ested Visits Authorized [id number] Closed 10/05/2014 04/03/2015 1 1 Reason for Visit Reason Comments Dizziness intermittent dizzy episodes after past few months last anywhere from a couple minutes to a couple h ours, also having headaches across forehead for last weeks. Pharyngitis sore, itchy throat started t brandon with ear itching Encounter Details Date Type Department Care Team Description [facility] ([facility] Clinic Kiana Toledo APRN CNP Seasonal allergic rhinitis; [address] Ear itching; [place], [place] Dizziness; [place] [address] Headache(784.0); [address] Eczema of both external ears [phone] Social History Tobacco Use Types Packs/Day Years [...] for 7-10 days Labs today MRI brain [phone] to schedule Eye exam [facility] [email or web address] documented in this encounter Progress Notes Poonam [...] Relation Age of Onset ??? Heart Father [place] at age 42 ??? Depression Father ??? [...] 6. Eczema of both external ears 380.22 yihpghyu-sjvyzyiel-wktdbnnjmunccu (CORTISPORIN) [id number] otic suspension Patient Instructions Vanicream to skin for dry skin Singulair daily for allergy Cortisporin ear drops 4 drops 4 times a day for 7-10 days Labs today MRI brain [phone] to schedule Eye exam [facility] [email or web address] Poonam Rosales APRN [facility] documented in this encounter Nursing Notes [...] are identified. ANTELMO DAVIES MD Poonam Rosales APRN, CNP [facility] MRI ORDERABLES (ABNORMAL) Vitamin D Deficiency (10/05/2014 9:03 AM CDT) athologist Signature Vitamin D 18 (L) 30 - 75 [facility] ug/L [facility] Comment: Season, race, dietary intake, and treatm ent affect the concentration of 02-xnbkmhk-Voppnir D. Values may decrea se during winter [...] 9:08 (specimen) CDT AM CDT Poonam Rosales APRN, CNP LAB - BLOOD ORDERABLES Performing Organization Address City/State/ZIP Code Phon e Number [facility] [address] [place] [address] [facility] (ABNORMAL) Comprehensive metabolic panel (10/05/2014 9:03 AM CDT) [facility] gist Method Time Signature Sodium 138 133 - 144 [place] mmol/L [facility] Potassium 4.2 3.4 - 5.3 [place] mmol/L [facility] Chloride 105 94 - 109 [place] mmol/L [facility] Carbon Dioxide 25 20 - 32 [place] mmol/L [facility] Anion Gap 8 3 - 14 [place] mmol/L [facility] Glucose 64 (L) 70 - 99 [place] mg/dL [facility] Urea Nitrogen 9 7 - 30 [place] mg/dL [facility] Creatinine 0.74 0.52 - [place] 1.04 CLINICS mg/dL [facility] GFR Estimate >90 >60 [place] Non GFR Calc mL/min/1. CLINICS 7m2 [facility] GFR Estimate If >90 >60 [place] Black GFR Calc mL/min/1. CLIN ICS 7m2 [facility] Calcium 9.0 8.5 - [place] 10.1 CLINICS mg/dL [facility] Bilirubin Total 0.8 0.2 - 1.3 [place] mg/dL [facility] Albumin 4.3 3.4 - 5.0 [place] g/dL [facility] Protein Total 7.4 6.8 - 8.8 [place] g/dL [facility] Alkaline 63 40 - 150 [place] Phosphatase U/L [facility] ALT 20 0 - 50 [place] U/L [facility] AST 9 0 - 45 [place] U/L [facility] Specimen Anatomical Collection Method Collection Time Receive d Time (Source) Location / / Volume Laterality Blood specimen 10/05/2014 9:03 AM 015 9:08 (specimen) CDT AM CDT Poonam Rosales APRN PREVENTION COORDINATOR LAB - BLOOD ORDERABLES Performing Organization Address City/State/ZIP Code Phon e Number [facility] [address] [place] [address] TSH with free T4 reflex (10/05/2014 9:03 AM CDT) P athologist Signature TSH 2.87 0.40 - 4.00 [facility] mU/L [facility] Specimen Anatomical Collection Method Collection Time Receive d Time (Source) Location / / Volume Laterality Blood specimen 10/05/2014 9:03 AM 015 9:08 (specimen) CDT AM CDT Poonam Toledo Connie LEWISN PREVENTION COORDINATOR LAB - BLOOD ORDERABLES Performing Organization Address City/State/ZIP Code Phon e Number [facility] [address] [place] [address] CBC with platelets differential (10/05/2014 9:03 AM CDT) Patholo gist Method Time Signature WBC 5.3 4.0 - [place] 11.0 CLINICS 10e9/L [place] RBC Count 4.75 3.8 - 5.2 [place] 10e12/L [facility] Hemoglobin 14.7 11.7 - [place] 15.7 g/dL [facility] Hematocrit 43.6 35.0 - [place] 47.0 % [facility] MCV 92 78 - 100 [facility] MCH 30.9 26.5 - [place] 33.0 pg [facility] MCHC 33.7 31.5 - [place] 36.5 g/dL [facility] RDW 12.9 10.0 - [place] 15.0 % [facility] Platelet Count 293 150 - 450 [place] 10e9/L [facility] Diff Method Automated [facility] % Neutrophils 43.7 % [facility] % Lymphocytes 41.2 % [facility] % Monocytes 11.7 % [facility] % Eosinophils 2.8 % [facility] % Basophils 0.6 % [facility] Absolute 2.3 1.6 - 8.3 [place] Neutrophil 10e9/L [facility] Absolute 2.2 0.8 - 5.3 [place] Lymphocytes 10e9/L [facility] Absolute 0.6 0.0 - 1.3 [place] Monocytes 10e9/L [facility] Absolute 0.2 0.0 - 0.7 [place] Eosinophils 10e9/L [facility] Absolute 0.0 0.0 - 0.2 [place] Basophils 10e9/L [facility] Specimen Anatomical Collection Method Collection Time Receive d Time (Source) Location / / Volume Laterality Blood specimen 10/05/2014 9:03 AM 015 9:08 (specimen) CDT AM CDT Poonam Parisdinorah Rosales APRN PREVENTION COORDINATOR LAB - BLOOD ORDERABLES Performing Organization Address City/State/ZIP Code Phon e Number [facility] [address] [place], [place] [address] [address] documented in this encounter Visit Diagnoses Diagnosis Allergic rhinitis - Primary Allergic rhinitis, cause unspecified Seasonal allergic rhinitis Allergic rhinitis, cause unspecified Ear itching Unspecified pruritic disorder Dizziness Dizziness and giddiness Headache(784.0) Headache Eczema of both external ears Dizziness Dizziness and giddiness Headache(784.0) Headache documented in this encounter Care Teams Operational Intelligence Officer Relationship Specialty Start Date End Date Ronaldo-Sarah Doshi PA-C PCP - General Family Practice 10/21/11 [address] [place] [address] documented as of this encounter
--- OUTSIDE RECORDS SUMMARY | 2022-04-14 08:58 | XMS_ITS | Encounter Summary ---
:1985 Author Organization [facility] Address [address] [place] [address] Care Team Providers Name Role Phone Sarah Montgomery PA-C Primary Care Provider [phone] Encounter Details Date Type Department Care Team Description 11/22/2015 Orders Only [facility] Kait rine cramping; [facility] Missed menses [facility] [address] [place] [address] Social History Tobacco Use [...] Comments Diagnosis HCG QUANTITATIVE Routine 11/22/2015 8:20 AM Uterine cram ping Results for this CDT Missed menses procedure are in the results section. documented in this encounter Results HCG quantitative (11/22/2015 8:20 AM CDT) Analysis Performed At Patho logist Time Signature HCG Quantitative 11,668 IU/L [facility] Comment: Non- ?0 - 5 , weeks from LMP: ??1 - 10 weeks ? 64 - 151,000 IU/L 11 - 15 weeks 11,800 - 152,000 IU/L 16 - 22 weeks ??9,380 - 61,400 IU/L 23 - 40 weeks ??1,190 - 98,600 IU/L Specimen run with a dilution Specimen Anatomical Collection Method Collection Time Receive d Time (Source) Location / / Volume Laterality Blood specimen 11/22/2015 8:20 AM 016 8:21 (specimen) CDT AM CDT Derick Robles MD LAB - BLOOD ORDERABLES Performing Organization Address City/State/ZIP Code Phon e Number [place] [address] [address] [facility] [address] [place], [place] [address] [place] [address] documented in this encounter Visit Diagnoses Diagnosis Uterine cramping Missed menses Absence of menstruation documented in this encounter Additional Health Concerns Assessment Noted Time PHQ-9 Depression Total Score: 0 09/07/2015 7:16 AM CDT documented as of this encounter Care Teams Advertising Rep Relationship Specialty Start Date End Date Sarah Montgomery PA-C PCP - General Family Practice 10/21/11 [address] [place] [address] documented as of this encounter
--- OUTSIDE RECORDS SUMMARY | 2022-04-14 08:58 | XMS_ITS | Encounter Summary ---
:1985 Author Organization [facility] Address [address] [place] [address] Care Team Providers Name Role Phone Sarah Montgomery PA-C Primary Care Provider [phone] Reason for Visit Reason Comments Abdominal Pain 3 days/ tender to touch/ gerri d to pass urine/ not sure of last BM-took laxative yesterday. Period d ue around 09/11. 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 documented in this encounter Progress Notes Marie [...] stool softener as needed Marie Vuong NP [facility] documented in this encounter Nursing Notes [...] Microscopic and Culture (09/06/2015 2:54 PM CDT) [facility] gist Method Time Signature Color Urine Yellow [facility] Appearance Urine Clear [facility] Glucose Urine Negative NEG mg/dL [facility] Bilirubin Urine Negative NEG [facility] Ketones Urine Negative NEG mg/dL [facility] Specific [place] 1.015 1.003 - [place] Urine 1.[address] [facility] Blood Urine Negative NEG [facility] pH Urine 7.0 5.0 - 7.0 [place] pH [facility] Protein Albumin Negative NEG mg/dL [facility] Urobilinogen 0.2 0.2 - 1.0 [place] Urine EU/dL [facility] Nitrite Urine Negative NEG [facility] Leukocyte Negative NEG [place] Esterase Urine [facility] Source Midstream [facility] Specimen Anatomical Collection Method Collection Time Receive d Time (Source) Location / / Volume Laterality Urine specimen 09/06/2015 2:54 PM 016 2:59 (specimen) CDT PM CDT Marie Vuong NP LAB - URINE ORDERABLES Performing Organization Address City/State/ZIP Code Phon e Number [facility] [address] [place], [place] [address] [address] documented in this encounter Visit Diagnoses Diagnosis Abdominal pain, generalized - Primary Constipation, unspecified constipation t ype documented in this encounter Additional Health Concerns Assessment Noted Time PHQ-9 Depression Total Score: 0 09/07/2015 7:16 AM CDT documented as of this encounter Care Teams Toll Service Observer Relationship Specialty Start Date End Date Sarah Montgomery PA-C PCP - General Family Practice 10/21/11 [address] [place] [address] documented as of this encounter
--- OUTSIDE RECORDS SUMMARY | 2022-04-14 08:58 | XMS_ITS | Encounter Summary ---
:1985 Author Organization [place] Address [address] [place] [address] Care Team Providers Name Role Phone Sarah Montgomery PA-C Primary Care Provider Reason for Visit Reason Comments Tachycardia Encounter Details Date Type Department Care Team Description 05/24/2015 Emergency [facility] [place] LaguerreCristofer y [place], Palpitations Emergency Dept [address] [facility] [address] [facility] [phone] [place], [place] [address] (Wo rk) Social History [...] Comments Blood Pressure 120/86 05/24/2015 6:56 PM BEHAVIOR SUPPORT SPECIALIST Pulse 96 05/24/2015 3:20 PM BEHAVIOR SUPPORT SPECIALIST Temperature 36.7 ??C (98 ??F) 05/24/2015 3:20 PM BEHAVIOR SUPPORT SPECIALIST Respiratory Rate 16 05/24/2015 7:02 PM BEHAVIOR SUPPORT SPECIALIST Oxygen Saturation 99% 05/24/2015 6:56 PM BEHAVIOR SUPPORT SPECIALIST Inhaled Oxygen Concentration - - Weight 65.8 kg (145 lb) 05/24/2015 3:20 PM BEHAVIOR SUPPORT SPECIALIST Height - - Body Mass Index 23.4 11/16/2014 8:39 AM CDT documented in this encounter Discharge Instructions Discharge InstructionsGary Laguerre MD - 05/24/2015 6:51 PM BEHAVIOR SUPPORT SPECIALIST Images from the original note were not included. Please make an appointment to follow up with your content assistant following your Holter placement and return to [...] rhythm) ?? Disease of the heart valves Szb-Nbrhq-Diaivgy Causes: ?? Certain medicines (such as asthma [...] Tell your doctor about any prescription or mkly-wmo-brxcqlc or herbal medicines you take. Follow Up [...] ?? Difficulty with speech or vision ?? [id number] [employer]. [address] [place] [address], [place] [id number]. All rights reserved. This information is not intended as a substitute for professional medical care. Always follow your healthcare professional's instructions. VIOR SUPPORT SPECIALIST documented in this encounter ED Notes Cindy Garcia RN - 05/24/2015 6:31 PM CST Pt returned from xray. Continues to be symptom free. VIOR SUPPORT SPECIALIST Gary Laguerre MD - 05/24/2015 5:19 PM CST History Chief Complaint: Palpitations HPI Rhonda Tamayo is a 29 year old female who presents to the emergency department today with palpitations. The patient reports that while she was driving around [id number] she had acute onset of palpitations, feeling [...] No pertinent surgical history. Family History: Father: [place] at 42, Depression Social History: Presents with: [...] noted at 1533. Ventricular rate: 91 bpm NM interval: 134 ms QRS duration: 78 ms QT/QTc: 334/410 ms R-Creston: 64 ECG read at [address] [...] documented above. The patient was placed on youth nutritional monitor and continuous pulse oximetry. An EKG was performed. The above imaging workup was performed. The above laboratory workup was performed. The patient was given aZio Patch Holter with instructions for continued monitoring. 1856- I updated the patient on her imaging [...] observations and the provider's statements to me. [facility] EMERGENCY DEPARTMENT Gary Laguerre MD 05/25/15 4510 VIOR SUPPORT SPECIALIST Rosalia Cordova RN - 05/24/2015 3:23 PM CST Pt here with c/o fast heart rate that last 2-3 min long associated with dizziness afterwards. Pt feels exhausted now. Pt has been battling cold symptoms since Thursday. VIOR SUPPORT SPECIALIST documented in this encounter Plan of Treatment Not on filedocumented as of this encounter Procedures Procedure Name Priority Date/Time Associated Comments Diagnosis XR CHEST 2 VIEWS STAT 05/24/2015 6:26 PM Resul ts for this BEHAVIOR SUPPORT SPECIALIST procedure are i n the results section. HCG QUALITATIVE URINE STAT 05/24/2015 5:57 PM Results for this BEHAVIOR SUPPORT SPECIALIST procedure are i n the results section. CBC WITH PLATELETS & STAT 05/24/2015 5:57 PM R esults for this DIFFERENTIAL BEHAVIOR SUPPORT SPECIALIST procedure are i n the results section. TSH WITH FREE T4 STAT 05/24/2015 5:57 PM Resul ts for this REFLEX BEHAVIOR SUPPORT SPECIALIST procedure are i n the results section. BASIC METABOLIC PANEL STAT 05/24/2015 5:57 PM Results for this BEHAVIOR SUPPORT SPECIALIST procedure are i n the results section. EKG 12-LEAD, TRACING STAT 05/24/2015 3:29 PM R esults for this ONLY BEHAVIOR SUPPORT SPECIALIST procedure are i n the results section. documented in this encounter Results XR Chest 2 Views (05/24/2015 6:26 PM BEHAVIOR SUPPORT SPECIALIST) Anatomical Region Laterality Modality Chest Computed Radiography Specimen (Source) Anatomical Location Collection Method / Collectio n Time Received Time / Laterality Volume Impressions 05/24/2015 7:10 PM BEHAVIOR SUPPORT SPECIALIST IMPRESSION: Negative chest. BRAULIO CANO MD Narrative 05/24/2015 7:10 PM BEHAVIOR SUPPORT SPECIALIST CHEST TWO VIEW 05/24/2015 6:26 PM HISTORY: [...] with free T4 reflex (05/24/2015 5:57 PM BEHAVIOR SUPPORT SPECIALIST) P athologist Signature TSH 1.78 0.40 - 4.00 [facility] mU/L [facility] Specimen Anatomical Collection Method Collection Time Receive d Time (Source) Location / / Volume Laterality Blood specimen 05/24/2015 5:57 PM 015 6:05 (specimen) BEHAVIOR SUPPORT SPECIALIST PM BEHAVIOR SUPPORT SPECIALIST Gary Laguerre MD LAB - BLOOD ORDERABLES Performing Organization Address City/State/ZIP Code Phon e Number M [facility] [address] [place], [place] [address] [facility] [address] [place], [place] [address], [facility] [phone] HCG qualitative urine (05/24/2015 5:57 PM BEHAVIOR SUPPORT SPECIALIST) athologist Signature HCG Qual Urine Negative NEG [facility] Specimen Anatomical Collection Method Collection Time Receive d Time (Source) Location / / Volume Laterality Urine specimen URINE SPECIMEN 05/24/2015 5:57 PM 05/24 6:05 (specimen) OBTAINED BY CLEAN BEHAVIOR SUPPORT SPECIALIST PM BEHAVIOR SUPPORT SPECIALIST CATCH PROCEDURE / Unknown Gary Laguerre MD LAB - URINE ORDERABLES Performing Organization Address City/State/ZIP Code Phon e Number M [facility] [address] [place], [place] [address] [facility] [address] [place], [place] [address], [facility] [phone] Basic metabolic panel (05/24/2015 5:57 PM BEHAVIOR SUPPORT SPECIALIST) [facility] gist Method Time Signature Sodium 139 133 - 144 [place] mmol/L [facility] Potassium 3.7 3.4 - 5.3 [place] mmol/L [facility] Chloride 105 94 - 109 [place] mmol/L [facility] Carbon Dioxide 27 20 - 32 [place] mmol/L [facility] Anion Gap 7 3 - 14 [place] mmol/L [facility] Glucose 88 70 - 99 [place] mg/dL [facility] Urea Nitrogen 8 7 - 30 [place] mg/dL [facility] Creatinine 0.72 0.52 - [place] 1.04 [facility] mg/dL HOSPITAL GFR Estimate >90 >60 [place] Non GFR Calc mL/min/1. [place] [address]m2 [facility] GFR Estimate >90 >60 [place] If Black GFR Calc mL/min/1. [facility] 7m2 HOSPITAL Calcium 8.7 8.5 - [place] 10.1 [facility] mg/dL HOSPITAL Specimen Anatomical Collection Method Collection Time Receive d Time (Source) Location / / Volume Laterality Blood specimen 05/24/2015 5:57 PM 015 6:05 (specimen) BEHAVIOR SUPPORT SPECIALIST PM BEHAVIOR SUPPORT SPECIALIST Gary Laguerre MD LAB - BLOOD ORDERABLES Performing Organization Address City/State/ZIP Code Phon e Number M [place] [address] [place], [place] [address] [facility] [address] [place], [place] [address] 7[facility] [phone] CBC with platelets differential (05/24/2015 5:57 PM BEHAVIOR SUPPORT SPECIALIST) [facility] Method Time Signature WBC 6.9 4.0 - [place] 11.0 [facility] 109[facility] RBC Count 4.72 3.8 - 5.2 [place] 10e12/L [facility] Hemoglobin 14.8 11.7 - [place] 15.7 g/dL [facility] Hematocrit 42.8 35.0 - [place] 47.0 % [facility] MCV 91 78 - 100 [facility] MCH 31.4 26.5 - [place] 33.0 pg [facility] MCHC 34.6 31.5 - [place] 36.5 g/dL [facility] RDW 12.4 10.0 - [place] 15.0 % [facility] Platelet Count 360 150 - [address] Diff Method Automated [place] Method [facility] % Neutrophils 60.1 % [facility] % Lymphocytes 30.5 % [facility] % Monocytes 6.1 % [facility] % Eosinophils 2.5 % [facility] % Basophils 0.7 % [facility] % Immature 0.1 % [place] Granulocytes [facility] Absolute 4.1 1.6 - 8.3 [place] Neutrophil 10e9/L [facility] Absolute 2.1 0.8 - 5.3 [place] Lymphocytes 10e9/[facility] Absolute 0.4 0.0 - 1.3 [place] Monocytes 10e9/[facility] Absolute 0.2 0.0 - 0.7 [facility] Eosinophils 10e9/[facility] Absolute 0.1 0.0 - 0.2 [place] Basophils [facility] Abs Immature 0.0 0 - 0.4 [place] Granulocytes [address] [place] [address] Specimen Anatomical Collection Method Collection Time Receive d Time (Source) Location / / Volume Laterality Blood specimen 05/24/2015 5:57 PM 015 6:05 (specimen) BEHAVIOR SUPPORT SPECIALIST PM BEHAVIOR SUPPORT SPECIALIST Gary Laguerre MD LAB - BLOOD ORDERABLES Performing Organization Address City/State/ZIP [facility] Phon e Number [place] [address] [place], [place] [address] [facility] [address] [place], [place] [address] [phone] EKG 12 lead (05/24/2015 3:29 PM BEHAVIOR SUPPORT SPECIALIST) [facility] gist Method Time Signature Interpretation ECG Click View RADIOLOGY Image link RESULTS to view waveform and result Specimen (Source) Anatomical Collection Method Collection Time Re ceived Time Location / / Volume Laterality 05/24/2015 3:29 PM BEHAVIOR SUPPORT SPECIALIST Yvette Cortes MD ECG ORDERABLES Performing Organization Address City/State/ZIP [facility] Phon e Number RADIOLOGY RESULTS documented in this encounter Visit Diagnoses Diagnosis Palpitations documented in this encounter Active and Recently Administered Medications Care Teams Nondestructive Tester Relationship Specialty Start Date End Date Ronaldo-Sarah Doshi PA-C PCP - General Family Practice 10/21/11 [address] [place] [address] documented as of this encounter
--- OUTSIDE RECORDS SUMMARY | 2022-04-14 08:58 | XMS_ITS | Encounter Summary ---
:1985 Author Organization [place] Address [address] [place] [address] Care Team Providers Name Role Phone Sarah Montgomery PA-C Primary Care Provider [phone] Reason for Visit Reason Onset Date Comments Refill Request 09/11/2014 Encounter Details Date Type Department Care Team Description 09/11/2014 Refill M [facility] Sarah Montgomery Refill Request Reshma Aguilar PA-C [address] [place] [phone] [place] [address] (Wo rk) Social History Tobacco [...] Peña - 09/11/2014 1:08 PM CDT Ph. [phone] valACYclovir (VALTREX) 1000 mg tablet 60 tablet 0 12/13/2012 -- Sig: Take 1 tablet by mouth 2 times daily. Class: E-Prescribe Route: Oral OV 03/01/2014 Rachell Peña Aged Or Disabled Carer documented in this encounter Plan of Treatment Not on filedocumented as of this encounter Visit Diagnoses Diagnosis Genital herpes - Primary documented in this encounter Care Teams Principal Research Economist Relationship Specialty Start Date End Date Sarah Montgomery PA-C PCP - General Family Practice 10/21/11 [address] [place] [address] documented as of this encounter
--- OUTSIDE RECORDS SUMMARY | 2022-04-14 08:58 | XMS_ITS | Encounter Summary ---
:1985 Author Organization [place] Address [address] [place] [address] Care Team Providers Name Role Phone Sarah Montgomery PA-C Primary Care Provider [phone] Encounter Details Date Type Department Care Team Description 11/17/2015 Telephone [facility] January Nayak, RN [address] [place] [address] Social History Tobacco Use Types Packs/Day Years Used Date Smoking Tobacco: Former Smokeless Tobacco: Never Comments: quit smoking 2months ago Alcohol Use Standard Drinks/Week Comments Yes 0 (1 standard drink = 0.6 oz pure alcoho l) occasionally - weekends Sex Assigned at Date Recorded Not on file documented as of this encounter Miscellaneous Notes Telephone Encounter - January Nayak, RN - 11/17/2015 8:10 AM CDT Triage Addendum [phone] Presenting Problem: 6 weeks , 1st , and but no due date yet , have not been to visit yet with Dr Bautista for OB . Having cramping all week without vaginal bleeding. Discuss with MERLENE Michel for 2nd opinion and because she has not been seen by OB yet , advised she go into be seen . No appointments left at [facility] , Called back Patient to advise going [...] documented as of this encounter Care Teams Esol Teacher Assistant Relationship Specialty Start Date End Date Ronaldo-Sarah Doshi PA-C PCP - General Family Practice 10/21/11 [address] [place] [address] documented as of this encounter
--- OUTSIDE RECORDS SUMMARY | 2022-04-14 08:58 | XMS_ITS | Encounter Summary ---
:1985 Author Organization [place] Address [address] [place] [address] Care Team Providers Name Role Phone Sarah Montgomery PA-C Primary Care Provider [phone] Reason for Visit Reason Comments Care NPN visit with the nurse Encounter Details Date Type Department Care Team Description 12/11/2015 Office [facility] p estelita (Primary Dx); Visit Clinic [place] Encounter for supervision of normal first , unspecified trimester [Z34.00] [address] [place] [address] Social History Tobacco Use Types [...] documented in this encounter Progress Notes Macie Roblero, NATE - 12/11/2015 11:30 AM CDT Here for [...] Narrative 12/21/2015 3:43 PM CDT Order #: [id number] Study Notes? Karley Damico on 12/20/2015 10:51 [address] ?? [facility] Obstetrics & Gynecology [address] [facility] [place] [address] ULTRASOUND - EARLY OB (0-11 WEEKS) Referring Provider: Nadiya Bautista Clinic: [facility] INDICATIONS FOR ULTRASOUND: OB History: [...] Component Value Ref Test Analysis Performed At [facility] Method Time Signature Specimen Midstream Urine [facility] Culture Micro 10,000 to 50,000 colonies/mL mixed [...] Code Phon e Number INFECTIOUS DISEASES [address] [place] [address] DIAGNOSTIC LABORATORY, [facility] [address] [place] [address] [phone] [place] [address] INFECTIOUS DISEASE [address] [place] [address], [facility] DIAGNOSTIC LABORATORY ABO/RH TYPE AND SCREEN (12/11/2015 8:56 AM CDT) [facility] gist Method Time Signature Units Ordered <<Do Not [facility] Report>> [facility] ABO A [facility] RH(D) Pos [facility] Antibody Neg [facility] Screen [facility] Test Valid [facility] Only [facility] HOSPITAL Specimen 12/14/2015 [facility] Specimen Anatomical Collection Method Collection Time Receive d Time (Source) Location / / Volume Laterality Blood specimen 12/11/2015 8:56 AM 016 9:01 (specimen) CDT AM CDT Nadiya Bautista DO LAB - BLOOD BANK TEST ORDER Performing Organization Address City/State/ZIP Code Phon e Number [facility] [address] [place], [place] [address] [facility] [address] [place], [place] [address] [facility] [phone] Anti Treponema (12/11/2015 8:55 AM CDT) Analysis Performed At Path logist Time Signature Treponema Negative NEG [facility] Antibody [facility] [place] Specimen Anatomical Collection Method Collection Time Receive d Time (Source) Location / / Volume Laterality Blood specimen 12/11/2015 8:55 AM 016 9:00 (specimen) CDT AM CDT Nadiya Bautista DO LAB - BLOOD ORDERABLES Performing Organization Address City/State/ZIP Code Phon e Number [facility] [address] [place] [address] [facility] Hepatitis B surface antigen (12/11/2015 8:55 AM CDT) Patholo gist Method Time Signature Hep B Surface Nonreactive NR [facility] Specimen Anatomical Collection Method Collection Time Receive d Time (Source) Location / / Volume Laterality Blood specimen 12/11/2015 8:55 AM 016 9:00 (specimen) CDT AM CDT Nadiya [place] Lily DO LAB - BLOOD ORDERABLES Performing Organization Address City/[facility]/ZIP Code Phon e Number [facility] [address] [place] [address] [place] Rubella Antibody IgG Quantitative (12/11/2015 8:55 AM CDT) Analysis Performed At Patho logist Time Signature Rubella Antibody 7 IU/mL [facility] IgG Quantitative [facility] Comment: Negative Reference Range: ?? Unvaccinated Negative 0-7 IU/mL Vaccinated or previous exposure Positiv e 10 IU/ml or greater Specimen Anatomical Collection Method Collection Time Receive d Time (Source) Location / / Volume Laterality Blood specimen 12/11/2015 8:55 AM 016 9:00 (specimen) CDT AM CDT Nadiya Varelae Lily [facility] LAB - BLOOD ORDERABLES Performing Organization Address City/[facility]/ZIP Code Phon e Number [address] [address] [facility] HIV Antigen Antibody Combo (12/11/2015 8:55 AM CDT) Patholo gist Method Time Signature HIV Antigen Nonreactive NR [facility] Antibody HIV-1 p24 Ag & HIV-1/HIV-[address] [facility] Specimen Anatomical Collection Method Collection Time Receive d Time (Source) Location / / Volume Laterality Blood specimen 12/11/2015 8:55 AM 016 9:00 (specimen) CDT AM CDT Nadiya [place] Lily [facility] LAB - BLOOD ORDERABLES Performing Organization Address City/[facility]/ZIP Code Phon e Number [address] [address] [place] CBC WITH PLATELETS (12/11/2015 8:55 AM CDT) P athologist Signature WBC 8.0 4.0 - 11.0 [facility] 10e9/L [facility] RBC Count 4.29 3.8 - 5.2 [facility] 10e12/L [facility] Hemoglobin 13.2 11.7 - [facility] 15.7 g/dL [facility] Hematocrit 38.9 35.0 - [facility] 47.0 % [facility] MCV 91 78 - 100 [facility] MCH 30.8 26.5 - GUILD 33.0 pg [facility] MCHC 33.9 31.5 - [place] 36.5 g/dL [facility] RDW 12.2 10.0 - [place] 15.0 % [facility] Platelet Count 255 150 - 450 [place] 10e9/L [facility] Specimen Anatomical Collection Method Collection Time Receive d Time (Source) Location / / Volume Laterality Blood specimen 12/11/2015 8:55 AM 016 9:00 (specimen) CDT AM CDT Nadiya Bautista DO LAB - BLOOD ORDERABLES Performing Organization Address City/State/ZIP Code Phon e Number [facility] [address] [place], [place] [address] [address] documented in this encounter Visit Diagnoses Diagnosis First - Primary Supervision of normal first Encounter for supervision of normal firs t , unspecified trimester [Z34.00] First Supervision of normal first documented in this encounter Additional Health Concerns Assessment Noted Time PHQ-9 Depression Total Score: 0 09/07/2015 7:16 AM CDT documented as of this encounter Care Teams Unit Director Relationship Specialty Start Date End Date Sarah Montgomery PA-C PCP - General Family Practice 10/21/11 [address] [place] [address] documented as of this encounter
--- OUTSIDE RECORDS SUMMARY | 2022-04-14 08:58 | XMS_ITS | Encounter Summary ---
:1985 Author Organization [place] Address [address] [place] [address] Care Team Providers Name Role Phone Sarah Montgomery PA-C Primary Care Provider [phone] Reason for Visit Reason Onset Date Comments Nurse Advice Line 10/19/2014 Encounter Details Date Type Department Care Team Description 10/19/2014 Telephone [facility] [place], Nurse Advice Line [place] Sarah Aguilar PA-C [address] [phone] [place] [address] (Wo rk) Social History Tobacco [...] new vitamin D. [place] 42508 units weekly for 8 wks, then 2000 [...] on filedocumented in this encounter Care Teams Snowmaker Relationship Specialty Start Date End Date Sarah Montgomery PA-C PCP - General Family Practice 10/21/11 [address] [place] [address] documented as of this encounter
--- OUTSIDE RECORDS SUMMARY | 2022-04-14 08:58 | XMS_ITS | Encounter Summary ---
:1985 Author Organization [place] Address [address] [place] [address]. 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 Nadiya Bautista DO Obstetrics and Gynecology [facility] and [place] documented in this encounter Progress Notes Nadiya Bautista DO - 02/15/2014 9:50 AM CDT SUBJECTIVE: Shruti Kirkland is an 28 year old woman who presents for annual metal and plastic heater exam. Patient's last menstrual period was 01/19/2014. 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 Family History Problem Relation Age of Onset ??? Heart Father [place] at age 42 ??? Cancer Maternal Grandmother [...] year old woman who presents for annual metal and plastic heater exam. PLAN: Dx: 1) Pap smear today: [...] Dr. Nadiya Bautista DO Obstetrics and Gynecology [facility] documented in this encounter Nursing Notes Macie Roblero LPN - 02/15/2014 9:39 AM CDT Chief Complaint Patient presents with ??? Dried Fruit Washer Exam Initial BP 98/68 Ht 5' 6 [...] Component Value Ref Test Analysis Performed At [facility] Range Method Time Signature Specimen Cervical [facility] Chlamydia Negative NEG [facility] Trachomatis Negative for C. trachomatis rRNA by access developer mediated amplification. MICROBIOLOGY PCR A negative result [...] MICRO GENERAL ORDERABL ES Performing Organization Address [facility] Phon e Number [id number] [place] [address] [place], [place] [address] [address] [facility] MICROBIOLOGY NEISSERIA GONORRHOEA PCR (02/15/2014 2:53 PM CDT) Component Value Ref Test Analysis Performed At [facility] Method Time Signature Specimen Cervical [facility] N Gonorrhea Negative NEG FUM PCR Negative [...] MICRO GENERAL ORDERABL ES Performing Organization Address [facility] Phon e Number [id number] [place] [address] [place], [place] [address] [address] [facility] MICROBIOLOGY HPV screen with reflex to genotype (02/15/2014 12:00 AM CDT) Component Value Ref Test Analysis Performed At [facility] Method Time Signature Copath Report Patient Name: SHRUTI KIRKLAND MR#: [id number] Specimen #: [id number] Collected: 02/15/2014 00:00 Received: 02/22/2014 15:33 Reported: 02/27/2014 10:23 Ordering Phy(s): NADIYA BAUTISTA TEST(S) REQUESTED: Human [...] en by capillary electrophoresis using a [employer] with Homefront Learning Centerulator software. ??The PCR products from samples positive [...] and its performance characteristics determined by the [facility], ??[facility] iagn[facility] Laboratory. It has not been cleared or approved by the FDA. The laboratory is regulated under CLIA as qualified to perform high-complexity testing. This test is used for clinical purp oses. It should not be regarded as investigational or for research. Electronically Signed Out By: YOSEF Order Selector CPT Codes: A: 09882- HPVSC TESTING LAB LOCATION: [address] [address] COLLECTION SITE: Client: ??[facility] Location: ??RIOB (R) Specimen (Source) Anatomical Collection Method Collection Time Re ceived Time Location / / Volume Laterality 02/15/2014 02/22/2014 3:33 PM CDT Nadiya Bautista DO LAB - GENOMICS Performing Organization Address City/State/ZIP Code Phon e Number [place] PAP imaged thin layer, diagnostic (02/15/2014 12:00 AM CDT) Component Value Ref Test Analysis Performed At [facility] Range Method Time Signature PAP NIL [facility] Copath Report [facility] Patient Name: SHRUTI KIRKLAND MR#: [id number] Specimen #: [id number] Collected: 02/15/2014 Received: 02/17/2014 Reported: 02/21/2014 10:48 [...] GRANT Hinson (ASCP) Processed and screened at [facility] CLINICAL HISTORY: LMP: 01/19/14 Previous normal pap Date of Last Pap: 12/13/12 Previous abnormal pap: HISTORY OF, Papanicolaou Test Limitations: ??Cervical cytology is a scre ening test with limited sensitivity; regular screening is critical for cancer prevention; Pap tests are primarily effective for the diagnosis/prevention of squamous cell carcinoma, not adenoca rcinomas or other cancers. TESTING LAB LOCATION: [address] ??[address] COLLECTION SITE: Client: ??[facility] Location: RIOB (R) Specimen (Source) Anatomical [...] examination documented in this encounter Care Teams Dining Services Manager Relationship Specialty Start Date End Date Ronaldo-Sarah Doshi PA-C PCP - General Family Practice 10/21/11 [address] [place], [place] [id number] documented as of this encounter
--- OUTSIDE RECORDS SUMMARY | 2022-04-14 08:58 | XMS_ITS | Encounter Summary ---
:1985 Author Organization [place] Address [address] [place] [address] Care Team Providers Name Role Phone Sarah Montgomery PA-C Primary Care Provider [phone] Encounter Details Date Type Department Care Team Description 10/06/2014 Orders Only [facility] Poonam Rosales Vitamin D deficiency Clinic [place] AR[facility]AN [place] DERMATOLOGIST AND DERMATOPATHOLOGIST (Primary Dx) [address] [place] [address] [place] [address] [phone] Social History Tobacco Use Types Packs/Day Years [...] deficiency documented in this encounter Care Teams Big Data Software Engineer Relationship Specialty Start Date End Date Sarah Montgomery PA-C PCP - General Family Practice 10/21/11 [address] [place] [address] documented as of this encounter
--- OUTSIDE RECORDS SUMMARY | 2022-04-14 08:59 | XMS_ITS | Encounter Summary ---
:1985 Author Organization [place] Address [address] [facility] [address] Care Team Providers Name Role Phone Sarah Montgomery PA-C Primary Care Provider Reason for Visit Reason Onset Date Comments Call To Schedule Appointment 05/13/2012 Ultrasound Encounter Details Date Type Department Care Team Description [facility] [place] Appointment [place] [id number] [place] [address] S (Ultrasound) [address] [place], [place] [address] [address] [place], [place] [phone] [address] (Work) [phone] Social History Tobacco Use Types Packs/Day Years Used Date Smoking Tobacco: Every Day Smokeless Tobacco: Never Comments: Pt. smokes 3 cigarettes daily Alcohol Use Standard Drinks/Week Comments Yes 0 (1 standard drink = 0.6 oz pure alcoho l) occasionally Sex Assigned at Date Recorded Not on file documented as of this encounter Miscellaneous Notes Telephone Encounter - Irnee Portillo - 05/17/2012 8:13 AM CST Letter sent for Rhonda to return our call and schedule an Ultrasound as per order from Dr Bautista on 05/13/12. UCT DEMONSTRATOR Telephone Encounter - Mandi Wang - 05/14/2012 10:38 AM CST Left message for Rhonda to return call to schedule an Ultrasound. UCT DEMONSTRATOR Telephone Encounter - Irene Portillo - 05/13/2012 12:42 PM CST Left message for Rhonda to return call to schedule an Ultrasound. UCT DEMONSTRATOR documented in this encounter Plan of Treatment Not on filedocumented as of this encounter Visit Diagnoses Not on filedocumented in this encounter Care Teams Side Seam Envelope Machine Operator Relationship Specialty Start Date End Date Sarah Montgomery PA-C PCP - General Family Practice 10/21/11 [address] [place] [address] documented as of this encounter
--- OUTSIDE RECORDS SUMMARY | 2022-04-14 08:59 | XMS_ITS | Encounter Summary ---
:1985 Author Organization [place] Address [address] [facility] [place] [address] Care Team Providers Name Role Phone Sarah Montgomery PA-C Primary Care Provider [phone] Reason for Visit Reason Onset Date Comments Abnormal Bleeding Problem 01/22/2012 ELZBIETA 1 Encounter Details Date Type Department Care Team Description 01/22/2012 Telephone [facility] Nadiya Bautista Abnormal Bleeding [facility] DO [place] Problem (ELZBIETA 1) [place] [address] [facility] [address] [place], [place] [address] [address] [place], [place] [phone] [address] (Work) [phone] Social History Tobacco Use Types Packs/Day Years [...] understanding. Annette White RN. Telephone Encounter - Rachell Peña - 01/30/2012 12:01 PM CDT Please return patient's call to number below. Rachell Peña Press Officer Telephone Encounter - Annette White - 01/30/2012 9:52 AM CDT Left voice mail for patient to call back. [phone] ELZBIETA 1 on colposcopy Can have repeat [...] with above information Dr. Nadiya Bautista DO MANAGER EPIC [facility] documented in this encounter Plan of Treatment Not on filedocumented as of this encounter Visit Diagnoses Not on filedocumented in this encounter Care Teams Fibre Cement Moulder Relationship Specialty Start Date End Date Sarah Montgomery PA-C PCP - General Family Practice 10/21/11 [address] [place] [address] documented as of this encounter
--- OUTSIDE RECORDS SUMMARY | 2022-04-14 08:59 | XMS_ITS | Encounter Summary ---
:1985 Author Organization [place] Address [address] [place] [address] Care Team Providers Name Role Phone Sarah Montgomery PA-C Primary Care Provider Reason for Visit Reason Onset Date Comments Nurse Advice Line 12/07/2012 Genital herpes Encounter Details Date Type Department Care Team Description 12/07/2012 Telephone [facility] Valentina, Nurse Advice Line [facility] Sarah Aguilar PA-C (Genital herpes ) [id number] [place] [phone] [place] [phone] Social History Tobacco Use Types Packs/Day Years [...] Patient scheduled future appt 12/13. Rachell Peña Client Advisor Telephone Encounter - WellingtonCorazon - 12/07/2012 11:54 AM CDT Left message for patient to call the clinic, please give her the message below. Corazon [place] Client Advisor Telephone Encounter - Sarah Montgomery PA-C - [...] 2 times daily.Class: E-Prescribe Route: Oral Order: [id number] [employer] Genital herpes simplex, Initial and recurrent [...] this lyndsay. Will refer to pcp and PHARMACOMETRICIAN MD Please advise. Thanks! Annette White RN. documented in this encounter Plan of Treatment Not on filedocumented as of this encounter Visit Diagnoses Diagnosis Genital herpes - Primary Recurrent herpes simplex Herpes simplex without mention of compli cation documented in this encounter Care Teams Digital Marketing Strategist Relationship Specialty Start Date End Date Sarah Montgomery PA-C PCP - General Family Practice 10/21/11 [address] [place] [address] documented as of this encounter
--- OUTSIDE RECORDS SUMMARY | 2022-04-14 08:59 | XMS_ITS | Encounter Summary ---
:1985 Author Organization [place] Address [address] [place] [address]. [place] [address] Care Team Providers Name Role Phone Leland Montgomery PA-C Primary Care Provider Reason for Visit Reason Comments Physical pap, discuss control Encounter Details Date Type Department Care Team Description 10/21/2011 [facility] at a [facility] care facility (Primary Dx); [facility] [place] Leland Aguilar PA-C Screen for STD (sexually transmitted dis ease); [address] control; [place], [place] Contraception management [phone] [phone] Social History Tobacco Use Types Packs/Day Years Used Date Smoking Tobacco: Every Day Comments: Pt. smokes 3 cigarettes daily Alcohol [...] These injections are given by a health customer care associate. You must not be before getting an injection. The injection is usually given during the first 5 days after the start of a menstrual period or 6 weeks after delivery of a baby. Talk to your green ware caster regarding the use of this medicine in children. Special care may be needed. These injections have been used in female children who have started having menstrual periods. Overdosage: If you think you have taken too much of this medicine contact a poison control center [facility] room at once. NOTE: This medicine [...] risk for weak bones. Ask your health customer care associate how you can keep strong bones. You may have a change in bleeding pattern or irregular periods. Many females stop having periods while taking this drug. If you have received your injections on time, your chance of being is very low. If you think you may be , see your health customer care associate as soon as possible. Tell your health customer care associate if you want to get within the next year. The effect of this medicine may last a long time after you get your last injection. What side effects may I notice from receiving this medicine? Side effects that you should report to your doctor or health customer care associate as soon as possible: ?? allergic reactions [...] attention (report to your doctor or health customer care associate if they continue or are bothersome): ?? acne ?? fluid retention and swelling ?? headache ?? irregular periods, spotting, or absent periods ?? temporary pain, itching, or skin reaction at site where injected ?? weight gain This list may not describe all possible side effects. Call your doctor for medical advice about sideeffects. You may report side effects to FDA at 4-881-HBC-2575. Where should I keep my medicine? This does not apply. The injection will be given to you by a health customer care associate. NOTE:This sheet is a summary. It may [...] accordingly All Histories reviewed and updated in [facility]. ROS: C: NEGATIVE for fever, chills, change [...] These injections are given by a health customer care associate. You must not be before getting an injection. The injection is usually given during the first 5 days after the start of a menstrual period or 6 weeks after delivery of a baby. Talk to your green ware caster regarding the use of this medicine in children. Special care may be needed. These injections have been used in female children who have started having menstrual periods. Overdosage: If you think you have taken too much of this medicine contact a poison control center [facility] room at once. NOTE: This medicine [...] risk for weak bones. Ask your health customer care associate how you can keep strong bones. You may have a change in bleeding pattern or irregular periods. Many females stop having periods while taking this drug. If you have received your injections on time, your chance of being is very low. If you think you may be , see your health customer care associate as soon as possible. Tell your health customer care associate if you want to get within the next year. The effect of this medicine may last a long time after you get your last injection. What side effects may I notice from receiving this medicine? Side effects that you should report to your doctor or health customer care associate as soon as possible: ?? allergic reactions [...] attention (report to your doctor or health customer care associate if they continue or are bothersome): ?? acne ?? fluid retention and swelling ?? headache ?? irregular periods, spotting, or absent periods ?? temporary pain, itching, or skin reaction at site where injected ?? weight gain This list may not describe all possible side effects. Call your doctor for medical advice about sideeffects. You may report side effects to FDA at 7-850-DAU-2510. Where should I keep my medicine? This does not apply. The injection will be given to you by a health customer care associate. NOTE:This sheet is a summary. It may not cover all possible information. If you have questions aboutthis medicine, talk to your doctor, pharmacist, or health care provider. Copyright?? 2011 Gold Standard documented in this encounter Nursing Notes 10/21/2011 9:30 AM CDT >> RENEE Narayan October 21, 2011 9:46 AM Health maintenance Pt. Wants to wait on tetanus to make sure insurance covers it Renee Gold ROLL SETTER >> RENEE Narayan October 21, 2011 9:45 [...] completed using cuff size: regular Renee Gold ROLL SETTER Health maintenance Pt. Advised due of tetanus shot Renee Gold ROLL SETTER documented in this encounter Plan of [...] Component Value Ref Test Analysis Performed At [facility] Range Method Time Signature Specimen Cervix [facility] LAB N Gonorrhea Negative for N. gonorrhoeae rRNA by enhanced environmental operator mediated amplification. [facility] PCR A negative result [...] Code Phon e Number [facility] [address] [place] [address] [facility] MICROBIOLOGY Chlamydia trachomatis PCR (10/21/2011 11:32 AM CDT) Component Value Ref Test Analysis Performed At [facility] Range Method Time Signature Specimen Cervix [facility] LAB Chlamydia Negative for C. trachomatis rRNA by enhanced environmental operator mediated amplification. [facility] Trachomatis A negative result [...] Code Phon e Number [facility] [address] [place], [place] [id number] [place] [address] LAB [facility] MICROBIOLOGY (ABNORMAL) PAP IMAGED THIN LAYER SCREEN (10/21/2011 11:04 AM CDT) Component Value Ref Test Analysis Performed At [facility] Range Method Time Signature PAP LSIL (A) [facility] Copath Report [facility] Patient Name: RHONDA KIRKLAND MR#: [id number] Specimen #: [id number] Collected: 10/21/2011 Received: 10/22/2011 Reported: 10/27/2011 07:02 [...] Mauri Pisano M.D. Processed and screened at [facility] CLINICAL HISTORY: LMP: 09/30/11 Previous abnormal pap: HSIL Date of Last Pap: 06/19/08, Papanicolaou Test Limitations: ??Cervical cytology is a scre ening test with limited sensitivity; regular screening is critical for cancer prevention; Pap tests are primarily effective for the diagnosis/prevention of squamous cell carcinoma, not adenoca rcinomas or other cancers. TESTING LAB LOCATION: [facility] [address] [address], [place] ??[address] COLLECTION SITE: Client: ??[facility] Location: LVFP (R) Specimen (Source) Anatomical Collection Method Collection Time Re ceived Time Location / / Volume Laterality Cytologic 10/21/2011 11:04 10/22/2011 material AM CDT 10:45 AM CDT (specimen) Leland Montgomery PA-C LAB - OPTIME CLINICAL SPECIMEN Performing Organization Address City/[facility]/ZIP Code Phon e Number [facility] HCG qualitative, urine (10/21/2011 10:14 AM CDT) P athologist Signature HCG Qual Urine Negative NEG [facility] LAB Specimen Anatomical Collection Method Collection Time Receive d Time (Source) Location / / Volume Laterality Urine specimen 10/21/2011 10:14 2 (specimen) AM CDT 10:16 AM CDT Leland Montgomery PA-C LAB - URINE ORDERABLES Performing Organization Address [facility]/ZIP Code Phon e Number [facility] [id number] [place] [address]. [place] [address] [facility] documented in this encounter Visit Diagnoses Diagnosis Routine general medical examination at a health care facility - Primary Screen for STD (sexually transmitted dis ease) Screening examination for venereal disea se control Unspecified contraceptive management Contraception management Unspecified contraceptive management documented in this encounter Care Teams Server Assistant Relationship Specialty Start Date End Date Leland Montgomery PA-C PCP - General Family Practice 10/21/11 [address] [place] [address] documented as of this encounter
--- OUTSIDE RECORDS SUMMARY | 2022-04-14 08:59 | XMS_ITS | Encounter Summary ---
:1985 Author Organization [place] Address [address] [place] [address] Care Team Providers Name Role Phone Morris Murray MD Primary Care Provider Unavailable Reason for Visit Reason Comments Consult consultation regarding colpo scopy Encounter Details Date Type Department Care Team Description 07/13/2008 Office Visit [facility] Morris Murray HSIL (High Grade Squamous Clinic Sammi Diallo MD Intraepit helial Lesion) [place] on PAP Smear (Primary Dx) [address] [address] Social History Tobacco Use Types [...] Comments Blood Pressure 104/58 07/13/2008 2:15 PM STACKING MACHINE OPERATOR Pulse - - Temperature - - Respiratory Rate - - Oxygen Saturation - - Inhaled Oxygen Concentration - - Weight 64 kg (141 lb) 07/13/2008 2:15 PM STACKING MACHINE OPERATOR Height 167.6 cm (5' 6) 07/13/2008 2:15 PM STACKING MACHINE OPERATOR Body Mass Index 22.76 07/13/2008 2:15 PM STACKING MACHINE OPERATOR documented in this encounter Progress Notes Morris [...] 15 minute discussion. Patient to schedule colposcopy. KING MACHINE OPERATOR documented in this encounter Nursing Notes 07/13/2008 2:15 PM CST >> TRINY PICKERING Mackenzie Jul 13, 2008 2:12 PM Rhonda Tamayo presents for consultation regarding abnormal pap results, Last pap was on 06-19-08,HGSIL/moderate to severe dysplasia/ELZBIETA 2 and ELZBIETA 3, pt. Has questions and concerns. Initial BP 104/58 Ht 5' 6 (1.676 m) Wt 141 lb (63.957 kg) LMP 07/11/2008 Body mass index is 22.76 kg/(m^2).BP completed using cuff size: regular. Linda Navas RN documented in this encounter Plan of Treatment Not on filedocumented as of this encounter Visit Diagnoses Diagnosis HSIL (high grade squamous intraepithelia l lesion) on Pap smear - Primary Papanicolaou smear of cervix with high g rade squamous intraepithelial lesion (HGSIL) documented in this encounter Care Teams Medical Assistant Float Relationship Specialty Start Date End Date Morris Murray MD PCP - General 06/24/0410/19 documented as of this encounter
--- OUTSIDE RECORDS SUMMARY | 2022-04-14 08:59 | XMS_ITS | Encounter Summary ---
:1985 Author Organization [place] Address [address] [place] [address] Care Team Providers Name Role Phone Sarah Montgomery PA-C Primary Care Provider [phone] Reason for Visit Reason Onset Date Comments Nurse Advice Line 09/15/2012 yeast Encounter Details Date Type Department Care Team Description 09/15/2012 Telephone [facility] Valentina, Nurse Advice Line [facility] [place] Sarah Aguilar PA-C (yeast) [address] [place] [phone] Social History Tobacco Use Types [...] vaginal antifungal creams when taking antibiotics. Amanda Gamble, RN, BSN Message handled by Nurse Triage. documented in this encounter Plan of Treatment Not on filedocumented as of this encounter Visit Diagnoses Not on filedocumented in this encounter Care Teams User Experience Analyst Relationship Specialty Start Date End Date Sarah Montgomery PA-C PCP - General Family Practice 10/21/11 [address] [place] [address] documented as of this encounter
--- OUTSIDE RECORDS SUMMARY | 2022-04-14 08:59 | XMS_ITS | Encounter Summary ---
:1985 Author Organization [facility] Address [address] [place] [address]. [place] [address] Care Team Providers Name Role Phone Leland Montgomery PA-C Primary Care Provider Reason for Visit Reason Comments Physical pap, not fasting Encounter Details Date Type Department Care Team Description 12/13/2012 Office Visit [facility] Fede Montgomery general medical examination at a health care facility (Primary Dx); [facility] [place] Leland Aguilar PA-C Genital herpes; [address] Papanicolaou smear of vagina with atypic al squamous cells of undetermined significance (ASC-US); [place], [place] Lipid screeni ng; [phone] Screening for diabetes mellitus; [phone] Screening for u nspecified disorder of blood and blood-forming organs; (Work) Need for Tdap vaccination; [phone] Heart palpitati ons (Fax) Social History Tobacco [...] - 5.0 mU/L Thank you for choosing [facility]. We appreciate the opportunity to serve [...] for this basename: CHOL:2,HDL:2,LDL:2,TRI,CHOLHDLRATIO:2 in the last 46772 hours Reviewed orders with patient. Reviewed health maintenance and updated orders accordingly - Yes History of abnormal Pap smear: YES - updated in Problem List and Health Maintenance accordingly All Histories reviewed and updated in [facility]. ROS: C: NEGATIVE for fever, [...] histories reviewed in EPIC andupdated as appropriate. Labs reviewed in [facility] OBJECTIVE: BP 109/78 Pulse 80 [...] lb 9.6 oz(64.229 kg). Leland Montgomery PA-C, PALebronC [facility] Patient Instructions Preventive Health Recommendations Female [...] completed using cuff size: regular Renee Gold CMA Health maintenance Pt. Advised tetanus shot is due Renee Gold CMA documented in this encounter Plan [...] free T4 reflex (12/13/2012 10:42 AM CDT) athologist Signature TSH 2.20 0.4 - 5.0 [facility] mU/L CLINIC LAB Specimen Anatomical Collection Method Collection Time Receive d Time (Source) Location / / Volume Laterality Blood specimen 12/13/2012 10:42 3 (specimen) AM CDT 10:44 AM CDT Leland Montgomery PA-C LAB - BLOOD ORDERABLES Performing Organization Address City/State/ZIP Code Phon e Number [facility] [address] [place], [place] [address] [facility] [address] [place], [place] [address] Lipid panel reflex to direct LDL (12/13/2012 10:42 AM CDT) athologist Signature Cholesterol 182 0 - [address] [place] mg/dL CLINIC LAB Comment: LDL Cholesterol is the primary guide to therapy. The NCEP recommends further evaluation of: patients with cholesterol greater than 200 mg/dL if additional risk facto rs are present, cholesterol greater than 240 mg/dL, triglycerides greater than 1 50 mg/dL, or HDL less than 40 mg/dL. Triglycerides 42 0 - 150 mg/dL [facility] HDL Cholesterol 87 50 - 110 mg/dL [facility] LDL Cholesterol Calculated 86 0 - 129 mg/dL [facility] Comment: LDL Cholesterol is the primary guide to therapy: LDL-cholesterol goal in high risk patients is <100 mg/dL and in very high risk patients is <70 mg/dL. VLDL-Cholesterol 8 0 - 30 mg/dL [facility] Cholesterol/HDL Ratio 2.1 0.0 - 5.0 [facility] Specimen Anatomical Collection Method Collection Time Receive d Time (Source) Location / / Volume Laterality Blood specimen 12/13/2012 10:42 3 (specimen) AM CDT 10:44 AM CDT Leland Montgomery PA-C LAB - BLOOD ORDERABLES Performing Organization Address City/State/ZIP Code Phon e Number [facility] [place] [address] [place] [address] [facility] [address] [place] [address] [phone] Comprehensive metabolic panel (12/13/2012 10:42 AM CDT) P athologist Signature Sodium 139 133 - 144 [facility]L [facility] Potassium 4.5 3.4 - 5.[address] [place] mmol/L CLINIC LAB Chloride 103 94 - [address] [place] mmol/L CLINIC LAB Carbon Dioxide 26 20 - [address] [place] mmol/L CLINIC LAB Anion Gap 10 6 - [address] [place] mmol/L CLINIC LAB Glucose 85 60 - [address] [place] mg/dL CLINIC LAB Urea Nitrogen 10 5 - [address] [place] mg/dL CLINIC LAB Creatinine 0.77 0.52 - [address] [place] 1.04 mg/dL CLINIC LAB GFR Estimate >90 >[address] [place] mL/min/1.7 CLINIC LAB m2 GFR Estimate If >90 >60 [facility] Black mL/min/1.7 CLINIC LAB m2 Calcium 9.1 8.5 - 10.[address] [place] mg/dL CLINIC LAB Bilirubin Total 1.0 0.2 - 1.[address] [place] mg/dL [facility] Albumin 4.5 3.9 - 5.[address] [place] g/dL CLINIC LAB Comment: Reference range changed on 01/24. Protein Total 7.9 6.8 - 8.8 g/dL [address] [facility] Comment: As of 07, reference range reflects plasma specimen type. Alkaline Phosphatase 55 40 - 150 U/L [facility] [place] CLINIC LAB ALT 28 0 - 50 U/L [address] [place] CLIN IC LAB AST 32 0 - 45 U/L [facility] CLIN IC LAB Specimen Anatomical Collection Method Collection Time Receive d Time (Source) Location / / Volume Laterality Blood specimen 12/13/2012 10:42 3 (specimen) AM CDT 10:44 AM CDT Leland Montgomery PA-C LAB - BLOOD ORDERABLES Performing Organization Address City/State/ZIP Code Phon e Number [facility] [address] [place] [address] [facility] [address] [place] [address] CBC with platelets (12/13/2012 10:42 AM CDT) P athologist Signature WBC 4.6 4.0 - 11.[address] 10e9/L [facility] RBC Count 4.51 3.8 - 5.[address] 10e12/L [facility] Hemoglobin 14.4 11.7 - [address] 15.7 g/dL [facility] Hematocrit 41.4 35.[address] [facility] 47.0 % [facility] MCV 92 78 - 100 [facility] MCH 31.[address] [facility] 33.0 pg [facility] MCHC 34.8 31.5 - [address] 36.5 g/dL [facility] RDW 11.9 10.0 - [address] 15.0 % [facility] Platelet Count 290 150 - [address] 10e9/L [facility] Specimen Anatomical Collection Method Collection Time Receive d Time (Source) Location / / Volume Laterality Blood specimen 12/13/2012 10:42 3 (specimen) AM CDT 10:44 AM CDT Leland Montgomery PA-C LAB - BLOOD ORDERABLES Performing Organization Address City/State/ZIP Code Phon e Number [facility] [address] [place] [address] [facility] [address] [place], [place] [address] EKG 12-lead complete w/read - Clinics (12/13/2012 10:32 AM CDT) Narrative This result has an attachment that is no t available. Leland Montgomery PA-C ECG ORDERABLES HPV screen with reflex to genotype (12/13/2012 12:00 AM CDT) Component Value Ref Test Analysis Performed At [facility] Range Method Time Signature Copath Report Patient Name: SHRUTI KIRKLAND MR#: [id number] Specimen #: [id number] Collected: 12/13/2012 00:00 Received: 12/21/2012 11:52 Reported: [...] en by capillary electrophoresis using a Qiagen QIAPureCars with Bio Calculator software. ??The PCR products [...] and its performance determined by sara copeland [facility] ??[facility] Laboratory. It has not been cleared or approved by the U.S. Food and Luis g Administration. ??The FDA has determined that such clearance or approval is not necessary. ??Pursuant to the requirements of CLIA'88, this laboratory has established and verified the test's accuracy and precision. ??This test is used for clinical purposes. Electronically Signed Out By: YOSEF Applications Support Specialist TESTING LAB LOCATION: [address] [phone] COLLECTION SITE: Client: ??[facility] Location: ??LVFP (R) Specimen (Source) Anatomical Collection Method Collection Time Re ceived Time Location / / Volume Laterality 12/13/2012 12/21/2012 11:5 2 AM CDT Leland Montgomery PA-C LAB - GENOMICS Performing Organization Address City/State/ZIP Code Phon e Number [facility] PAP imaged thin layer, diagnostic (12/13/2012 12:00 AM CDT) Component Value Ref Test Analysis Performed At [facility] Range Method Time Signature PAP NIL COPATH Copath Report COPATH Patient Name: SHRUTI KIRKLAND MR#: [id number] Specimen #: [id number] Collected: 12/13/2012 Received: 12/14/2012 Reported: 12/15/2012 13:30 [...] Harden ( ASCP) Processed and screened at [facility] [place], [facility] CLINICAL HISTORY: LMP: 11/22/12 Previous ASC-US Date of Last Pap: 06/30/12, Papanicolaou Test Limitations: ??Cervical cytology is a scre ening test with limited sensitivity; regular screening is critical for cancer prevention; Pap tests are primarily effective for the diagnosis/prevention of squamous cell carcinoma, not adenoca rcinomas or other cancers. TESTING LAB LOCATION: [address] ??[phone] COLLECTION SITE: Client: ??[facility] Location: LVFP (R) Specimen (Source) Anatomical Collection [...] Need for prophylactic vaccination with c ombined gwllaxffqj-hpehhuq-qqpoyyrgk (DTP) vaccine Heart palpitations Palpitations documented in this encounter Care Teams Insurance Sales Professional Relationship Specialty Start Date End Date Leland Montgomery PA-C PCP - General Family Practice 10/21/11 [address] [place] [address] documented as of this encounter
--- OUTSIDE RECORDS SUMMARY | 2022-04-14 08:59 | XMS_ITS | Encounter Summary ---
:1985 Author Organization [facility] Address [address] [place] [address] Care Team Providers Name Role Phone Morris Murray MD Primary Care Provider Unavailable Reason for Visit Reason Onset Date Comments Call to schedule test 06/12/2009 repeat pap Encounter Details Date Type Department Care Team Description 06/12/2009 Telephone [facility] Morris Murray Call to me hedule test Clinic Kiana Diallo MD (repeat pap) [address] [place] [address] Social History Tobacco Use Types [...] encounter. Saumya Shaver RN Telephone Encounter - Mindy Reyes - 08/15/2009 2:53 PM CDT 08/15/09 - Rec'd signed certified card, forwarded to [facility], copy given to Saumya-SUPERVISOR NATURAL GAS PLANT. Telephone Encounter - Mindy Reyes - 08/07/2009 4:48 PM CDT 08/07/09 - Certified letter mailed 08/07/09. HIMS/bg. Telephone Encounter - Saumya Shaver - 08/07/2009 2:49 PM CDT Signature card not Received. Certified letter resent. Saumya Shaver RN Telephone Encounter - Mindy Reyes - 07/18/2009 2:54 PM CST - Letter mailed certified. HIMS/bg. NESS CONSULTANT Telephone Encounter - Saumya Shaver - 07/16/2009 11:09 AM CST Certified repeat pap reminder letter sent. If no response after 2 weeks of receipt of signature card, resolve episode and close encounter. Saumya Shaver RN NESS CONSULTANT Telephone Encounter - Saumya Shaver - 06/20/2009 10:25 AM CST Letter sent asking pt to call office. Saumya Shaver RN NESS CONSULTANT Telephone Encounter - Poonam Begum RN - 06/12/2009 9:31 AM CST LMOM for pt to return call to clinic. Due for repeat pap. Please assist in scheduling, thanks. Poonam Begum RN NESS CONSULTANT documented in this encounter Plan of Treatment Not on filedocumented as of this encounter Visit Diagnoses Not on filedocumented in this encounter Care Teams Oracle Technical Architect Relationship Specialty Start Date End Date Morris Murray MD PCP - General 06/24/0410/19 documented as of this encounter
--- OUTSIDE RECORDS SUMMARY | 2022-04-14 08:59 | XMS_ITS | Encounter Summary ---
:1985 Author Organization [facility] Address [address] [place] [address] Care Team Providers Name Role Phone Morris Murray MD Primary Care Provider Unavailable Encounter Details Date Type Department Care Team Description 05/03/2007 Emergency room Jayy Roth MD EMERGENCY PHYSIC [address] [address] (Wo rk) Social History Tobacco Use Types Packs/Day Years Used Date Smoking Tobacco: Never Alcohol Use Standard Drinks/Week Comments No 0 (1 standard drink = 0.6 oz pure alcoho l) Sex Assigned at Date Recorded Not on file documented as of this encounter Progress Notes Jayy Roth - 05/11/2007 3:25 PM SPECIAL EVENTS DRIVER FINAL CHIEF COMPLAINT: Abdominal pain. HISTORY OF [...] ROTH MD MT: crys Name: RHONDA KIRKLAND MRN: [id number] Account: [id number] : 1985 Visit Date: 05/03/2007 Document: [id number] cc: Primary IAL EVENTS DRIVER documented in this encounter Plan of Treatment Not on filedocumented as of this encounter Visit Diagnoses Not on filedocumented in this encounter Care Teams Riveter Relationship Specialty Start Date End Date Morris Murray MD PCP - General 06/24/0410/19 documented as of this encounter
--- OUTSIDE RECORDS SUMMARY | 2022-04-14 08:59 | XMS_ITS | Encounter Summary ---
:1985 Author Organization [facility] Address [address] [place] [address] Care Team Providers Name Role Phone Morris Murray MD Primary Care Provider Unavailable Reason for Visit Reason Comments Auxiliary Equipment Tender Exam Encounter Details Date Type Department Care Team Description 06/29/2006 Office Visit [facility] Morris Murray ROUTINE GY N [facility] MD Yoel EXAMINATION ( Primary [place] Dx) [address] [place] [address] Social History Tobacco Use Types Packs/Day Years Used Date Smoking Tobacco: Never Alcohol Use Standard Drinks/Week Comments No 0 (1 standard drink = 0.6 oz pure alcoho l) Sex Assigned at Date Recorded Not on file documented as of this encounter Last Filed Vital Signs Vital Sign Reading Time Taken Comments Blood Pressure 102/68 06/29/2006 6:00 PM CYBER INTELLIGENCE ANALYST Pulse - - Temperature - - Respiratory Rate - - Oxygen Saturation - - Inhaled Oxygen Concentration - - Weight 63.7 kg (140 lb 6.4 oz) 06/29/2006 6:00 PM CYBER INTELLIGENCE ANALYST Height 167.6 cm (5' 6) 06/29/2006 6:00 PM CYBER INTELLIGENCE ANALYST Body Mass Index 22.66 06/29/2006 6:00 PM CYBER INTELLIGENCE ANALYST Body Mass Index Percentile 63.54 % 06/29/2006 6:00 PM CS T Growth Chart: CDC (Girls, 2-20 Years) documented in this encounter Progress Notes Morris Murray - 06/29/2006 6:23 PM CST SUBJECTIVE: Shruti Kirkland is a 20 year old, single [...] and uterusantiverted. Extremities: Normal ASSESSMENT: Satisfactory annual hospitalist program director exam. PLAN: 1) Pap smear 2) Mammography, lipids at appropriate intervals 3) Discussed HPV vaccination. 4) Bloating, raul PE: reviewed health maintenance including diet, regular exercise and periodic exams. R INTELLIGENCE ANALYST documented in this encounter Nursing Notes 06/29/2006 6:00 PM CST >> RUTH DUVALA 06/29/2006 5:49 pm Shruti Kirkland presents for RHM.Last pap 06/30. Pt would like to discuss BC.Shiloh WinterREDDY duque Initial BP 102/68 Ht 5' 6 (1.68m) Wt 140 lbs 6.4 oz (63.7kg) LMP 06/11/2006 Body mass index is 22.67 kg/(m^2).. BP completed using cuff size: regular documented in this encounter Plan of Treatment Not on filedocumented as of this encounter Procedures Procedure Name Priority Date/Time Associated Diagnosis Comme nts CL AFF Routine 06/29/2006 7:36 PM Routine Auxiliary Equipment Tender Results f or this N.GONORRHOEAE, DNA CYBER INTELLIGENCE ANALYST Examination procedure are in AMP PROBE the results section. CL AFF CHLMYD Routine 06/29/2006 7:36 PM Routine Auxiliary Equipment Tender Results for this TRACH, DNA, AMP CYBER INTELLIGENCE ANALYST Examination procedure ar e in PROBE the results section. HCL PAP THIN LAYER Routine 06/29/2006 12:00 AM Routine Auxiliary Equipment Tender Re sults for this SCREEN CYBER INTELLIGENCE ANALYST Examination procedure are i n the results section. documented in this encounter Results CHLMYD TRACH, DNA, AMP PROBE (06/29/2006 7:36 PM CYBER INTELLIGENCE ANALYST) Component Value Ref Test Analysis Performed At [facility] [employer] Range Method Time Signature Specimen Vag[facility] LABS Chlamydia Negative for C. trachomatis rRNA by ag service manager mediated amplification. [facility] Trachomatis A negative result by transc ription mediated amplification does not preclude the STARKS PCR presence of C. trachomatis infection because results are dependent on proper CAMPUS LABS and adequate collection, absence of inhibitors, and suffici ent rRNA to be detected. Specimen Anatomical Collection Method Collection Time Receive d Time (Source) Location / / Volume Laterality 06/29/2006 7:36 PM 7 7:41 CYBER INTELLIGENCE ANALYST PM CYBER INTELLIGENCE ANALYST Morris Murray MD LABORATORY Performing Organization Address City/State/ZIP Code Phon e Number [facility] [address] [place], [place] [phone] [place] [address] LABS N.GONORRHOEAE, DNA, (GC) (06/29/2006 7:36 PM CYBER INTELLIGENCE ANALYST) Component Value Ref Test Analysis Performed At [facility] [employer] Range Method Time Signature Specimen Vagina [facility] LABS N Gonorrhea Negative for N. gonorrhoeae rRNA by ag service manager mediated amplification. [facility] PCR A negative result by transc ription mediated amplification does not preclude the STARKS presence of N. gonorrhoeae infection because re sults are dependent on proper CAMPUS LABS and adequate collection, absence of inhibitors, and suffici ent rRNA to be detected. Specimen Anatomical Collection Method Collection Time Receive d Time (Source) Location / / Volume Laterality 06/29/2006 7:36 PM 7 7:41 CYBER INTELLIGENCE ANALYST PM CYBER INTELLIGENCE ANALYST Morris Murray MD LABORATORY Performing Organization Address City/State/ZIP Code Phon e Number [facility] [address] [place], [place] [phone] [place] [address] LABS A THIN LAYER PAP SCREEN (06/29/2006 12:00 AM CYBER INTELLIGENCE ANALYST) Component Value Ref Test Analysis Performed At [facility] Range Method Time Signature PAP NIL COPATH Copath Report COPATH Patient Name: SHRUTI KIRKLAND MR#: [id number] Specimen #: [id number] Collected: 06/29/2006 Received: 06/30/2006 Reported: 07/01/2006 10:54 Ordering Phy(s): MORRIS MURRAY SPECIMEN/STAIN PROCESS: Pap thin layer prep screening (Sure[facility]) ? Pap-Cyto x 1, Reflex HPV x 1 SOURCE: Cervical, endocervical ---- Pap thin layer prep screening (SurePath) SPECIMEN ADEQUACY: Satisfactory for evaluation. -Transformation zone component present. CYTOLOGIC INTERPRETATION: Negative for Intraepithelial Lesion or Malignancy Electronically signed out by: JOHNNIE Casiano (ASCP) Processed and screened at [facility] nt, [facility] CLINICAL HISTORY: LMP: 118- Oral Control Pill, Previous normal pap Date of Last Pap: 06-27-05, TESTING LAB LOCATION: [address] ??[phone] COLLECTION SITE: [facility] Location: RIOB (R) Specimen (Source) Anatomical Collection Method Collection Time Re ceived Time Location / / Volume Laterality 06/29/2006 06/30/2006 1:35 PM CYBER INTELLIGENCE ANALYST Morris Murray MD LABORATORY Performing Organization Address City/State/ZIP Code Phon e Number COPATH documented in this encounter Visit Diagnoses Diagnosis Routine gynecological examination - Prim steve documented in this encounter Care Teams Metal Slitter Relationship Specialty Start Date End Date Morris Murray MD PCP - General 06/24/0410/19 documented as of this encounter
--- OUTSIDE RECORDS SUMMARY | 2022-04-14 08:59 | XMS_ITS | Encounter Summary ---
:1985 Author Organization [facility] Address [address] [place] [address] Care Team Providers Name Role Phone Morris Murray MD Primary Care Provider Unavailable Encounter Details Date Type Department Care Team Description 05/04/2007 Results Only [facility] sara Roth MD [facility] EMERGENCY TIMOTHY FALCON PA Results [address] [place], [place] [address] (Wo rk) Social History [...] Procedure Name Priority Date/Time Associated Diagnosis Comme [facility] CT ABDOMEN W Routine 05/04/2007 1:57 AM Result s for this CONTRAST MANAGER FIELD SERVICES procedure are i n the results section. documented in this encounter Results CT SCAN OF ABDOMEN CONTRAST (05/04/2007 1:57 AM MANAGER FIELD SERVICES) Anatomical Region Laterality Modality Other Specimen (Source) Anatomical Collection Method Collection Time Re ceived Time Location / / Volume Laterality 05/04/2007 1:57 AM MANAGER FIELD SERVICES Impressions 05/04/2007 10:[address] ABDOMEN AND PELVIS WITH CONTRAST ?? [...] Matute. Kaiden Roth MD SPECIAL IMAGING STUDIES documented in this encounter Visit Diagnoses Not on filedocumented in this encounter Care Teams Teacher Private Relationship Specialty Start Date End Date Morris Murray MD PCP - General 06/24/0410/19 documented as of this encounter
--- OUTSIDE RECORDS SUMMARY | 2022-04-14 08:59 | XMS_ITS | Encounter Summary ---
:1985 Author Organization [facility] Address [address] [place] [address] Care Team Providers Name Role Phone Morris Murray MD Primary Care Provider Unavailable Reason for Visit Reason Onset Date Comments Patient Request for Note/Letter 03/14/2009 Due for repeat pap/colpo Encounter Details Date Type Department Care Team Description 03/14/2009 Telephone [facility] Morris Murray Patient Re quest for Clinic Kiana Diallo MD Note/Letter (Due for [address] repeat pap/colpo) [place] [phone] Social History Tobacco Use Types Packs/Day Years [...] certified letter card back. Forwarded to Abstraction. OR ELECTRICAL DESIGNER Telephone Encounter - Saumya Shaver - 04/23/2009 8:18 AM CST Certified pap reminder letter sent to pt. If no response within 2 weeks of receipt of signature card, resolve episode and close encounter. Saumya Shavre RN OR ELECTRICAL DESIGNER Telephone Encounter - Poonam Begum RN - [...] on filedocumented in this encounter Care Teams Shipping Technician Relationship Specialty Start Date End Date Morris Murray MD PCP - General 06/24/0410/19 documented as of this encounter
--- OUTSIDE RECORDS SUMMARY | 2022-04-14 08:59 | XMS_ITS | Encounter Summary ---
:1985 Author Organization [place] Address [address] [place] [address] Care Team Providers Name Role Phone Morris Murray MD Primary Care Provider Unavailable Encounter Details Date Type Department Care Team Description 05/03/2007 Historic Results INTERFACED REPORT Sherrie Steele MD EMERGENCY PHYSIC [place] [id number] [place], [place] [address] Social History Tobacco Use Types Packs/Day [...] Re sults for this AND PLATELET PM RAYON CONER procedure are i n the results section. BASIC METABOLIC PANEL STAT 05/03/2007 11:56 Re sults for this PM RAYON CONER procedure are i n the results section. HCG QUALITATIVE URINE STAT 05/03/2007 11:50 Re sults for this PM RAYON CONER procedure are i n the results section. UA MACROSCOPIC WITH STAT 05/03/2007 11:50 Resu lts for this REFLEX TO MICRO PM RAYON CONER procedure ar e in the results section. documented in this encounter Results Hemogram differential and platelet (05/03/2007 11:56 PM RAYON CONER) [facility] Method Time Signature MCV 93 78 [...] / Volume Laterality 05/03/2007 11:56 05/04/2007 PM RAYON CONER 12:03 AM RAYON CONER Malachi Steele MD LAB - BLOOD ORDERABLES Performing Organization Address City/State/ZIP Code Phon e Number MISYS (ABNORMAL) Basic metabolic panel (05/03/2007 11:56 PM RAYON CONER) Analysis Performed At Patho logist Time Signature [...] / Volume Laterality 05/03/2007 11:56 05/04/2007 PM RAYON CONER 12:03 AM RAYON CONER Malachi Steele MD LAB - BLOOD ORDERABLES Performing Organization Address City/[facility]/ZIP Code Phon e Number MISYS UA macroscopic with reflex to micro (05/03/2007 11:50 PM RAYON CONER) Patholo gist Method Time Signature Source Midstream MIS[facility] Urine Color Urine Yellow [facility] Appearance Urine Clear [facility]IS[facility] Glucose Urine Negative NEG mg/dL M[facility] Bilirubin Urine Negative NEG [facility] Ketones Urine Negative NEG mg/dL MIS[place] Specific Clark <=1.005 1.003 - MISYS Urine 1.035 Blood [...] / Volume Laterality 05/03/2007 11:50 05/04/2007 PM RAYON CONER 12:03 AM RAYON CONER Malachi Steele MD LAB - URINE ORDERABLES Performing Organization Address City/[facility]/ZIP Code Phon e Number MIS[place] HCG qualitative urine (05/03/2007 11:50 PM RAYON CONER) P athologist Signature HCG Qual Urine Negative NEG [facility] Specimen Anatomical Collection Method Collection Time Receive d Time (Source) Location / / Volume Laterality 05/03/2007 11:50 05/04/2007 PM RAYON CONER 12:03 AM RAYON CONER Malachi Steele MD LAB - URINE ORDERABLES Performing Organization Address City/State/ZIP [facility] Phon e Number MISYS documented in this encounter Visit Diagnoses Not on filedocumented in this encounter Care Teams Alcohol Still Operator Relationship Specialty Start Date End Date Morris Murray MD PCP - General 06/24/0410/19 documented as of this encounter
--- OUTSIDE RECORDS SUMMARY | 2022-04-14 08:59 | XMS_ITS | Encounter Summary ---
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 straightener mpy for 5 days--had positive home hcg--then took hcg last nigh t and it was negative--pt spotting since yesterday morning--stopped d epo in Jan.--wanting to go back on b/c pills Encounter Details Date Type Department Care Team Description 05/12/2012 Office Visit [facility] Nadiya Bautista Positive test (Primary Dx); [facility] DO [place] Abdominal pain; [place] [id number] [address] [place], [place] [address] [address] [employer], [place] [phone] [address] (Work) [phone] Social History Tobacco Use Types Packs/Day Years [...] Comments Blood Pressure 98/56 05/12/2012 10:19 AM DIRECT MAIL COORDINATOR Pulse - - Temperature - - Respiratory Rate - - Oxygen Saturation - - Inhaled Oxygen Concentration - - Weight 60 kg (132 lb 4.8 oz) 05/12/2012 10:19 AM DIRECT MAIL COORDINATOR Height - - Body Mass Index 21.35 01/19/2012 8:46 AM CDT documented in this encounter Patient Instructions Patient InstructionsNadiya Bautista DO - 05/12/2012 10:53 AM CST Return in a month for pap smear Ultrasound if pain persists control prescription CT MAIL COORDINATOR documented in this encounter Progress Notes Nadiya [...] Relation Age of Onset ??? Heart Father [place] at age 42 ??? Cancer Maternal Grandmother [...] Dr. Nadiya Bautista DO Obstetrics and Gynecology [facility] CT MAIL COORDINATOR documented in this encounter Nursing Notes 05/12/2012 10:15 AM CST >> HIEN MONTGOMERY ThuMay 12, 2012 10:21 AM Patient presents [...] calculated from the following: Height as of 01/19/12: 5' 6(1.676 m). Weight as of this encounter: 132 lb 4.8 oz(60.011 kg).. BP completed using cuff size: regular Hien M. Carloz SUPPLY PLANNER documented in this encounter Plan of Treatment Not on filedocumented as of this encounter Procedures Procedure Name Priority Date/Time Associated Comments Diagnosis HCL HCG, URINE, Routine 05/12/2012 10:37 AM Positive Results for this NURSE BACKOFFICE DIRECT MAIL COORDINATOR test procedure a re in the results section. documented in this encounter Results HCL HCG, URINE, NURSE BACKOFFICE (05/12/2012 10:37 AM DIRECT MAIL COORDINATOR) P athologist Signature hCG, Qual negative [facility] BILLING Urine LAB Specimen (Source) Anatomical Collection Method Collection Time Re ceived Time Location / / Volume Laterality Urine specimen 05/12/2012 10:37 (specimen) AM DIRECT MAIL COORDINATOR Nadiya Bautista DO LABORATORY Performing Organization Address City/State/ZIP Code Phon e Number [facility] BILLING LAB documented in this encounter Visit Diagnoses Diagnosis Positive test - Primary examination or test, positive result Abdominal pain Abdominal pain, unspecified site Contraception Unspecified contraceptive management documented in this encounter Care Teams Wildlife Conservation Officer Relationship Specialty Start Date End Date Ronaldo-Sarah Doshi PA-C PCP - General Family Practice 10/21/11 [address] [place] [address] documented as of this encounter
--- OUTSIDE RECORDS SUMMARY | 2022-04-14 08:59 | XMS_ITS | Encounter Summary ---
:1985 Author Organization [place] Address [address] [place] [address] Care Team Providers Name Role Phone Morris Murray MD Primary Care Provider Unavailable Encounter Details Date Type Department Care Team Description 05/03/2007 Emergency room Delvin Coreas MD EMERGENCY PHYSIC [place] [phone] (Wo rk) Social History Tobacco Use Types Packs/Day Years Used Date Smoking Tobacco: Never Alcohol Use Standard Drinks/Week Comments No 0 (1 standard drink = 0.6 oz pure alcoho l) Sex Assigned at Date Recorded Not on file documented as of this encounter Progress Notes Delvin Coreas - 05/28/2007 4:50 PM BATTERY REPAIRER FINAL ADDENDUM: I was contacted by Dr. [...] in a prescription in to [facility] in [place] of Cipro 500 mgb.i.d. for 2 weeks. [...] MD MT: crys Name: RHONDA KIRKLAND Account: [id number] : 1985 Visit Date: 05/03/2007 Document: [id number] cc: Primary ERY REPAIRER documented in this encounter Plan of Treatment Not on filedocumented as of this encounter Visit Diagnoses Not on filedocumented in this encounter Care Teams Hand Stone Polisher Relationship Specialty Start Date End Date Morris Murray MD PCP - General 06/24/0410/19 documented as of this encounter
--- OUTSIDE RECORDS SUMMARY | 2022-04-14 08:59 | XMS_ITS | Encounter Summary ---
:1985 Author Organization [place] Address [address] [place] [address] Care Team Providers Name Role Phone Morris Murray MD Primary Care Provider Unavailable Reason for Visit Reason Onset Date Comments Refill Request 06/16/2006 dhaval dawn Encounter Details Date Type Department Care Team Description 06/16/2006 Refill [facility] Morris Murray, Ref ill Request ([facility] MD rich dawn) [place] [address] [place] [address] Social History Tobacco Use Types [...] to schedule annual exam. Saumya Shaver RN DAY DETECTOR OPERATOR Telephone Encounter - Morris Murray - 06/19/2006 9:47 AM CST Please notify patient. Refill faxed, but she does needs a [facility] appointment prior to further refills. DAY DETECTOR OPERATOR Telephone Encounter - Adia Paniagua - 06/17/2006 11:37 AM CST Pharm faxing 2nd refill request. DAY DETECTOR OPERATOR Telephone Encounter - Adia Paniagua - 06/16/2006 10:40 AM CST Pharmacy faxing refill request. Last pap 06/27/05. DAY DETECTOR OPERATOR documented in this encounter Plan of Treatment Not on filedocumented as of this encounter Visit Diagnoses Not on filedocumented in this encounter Care Teams Advertising Supervisor Relationship Specialty Start Date End Date Morris Murray MD PCP - General 06/24/0410/19 documented as of this encounter
--- OUTSIDE RECORDS SUMMARY | 2022-04-14 08:59 | XMS_ITS | Encounter Summary ---
:1985 Author Organization [place] Address [address] [place] [address] Care Team Providers Name Role Phone Sarah Montgomery PA-C Primary Care Provider [phone] Reason for Visit Reason Comments Allied Health Visit depo Encounter Details Date Type Department Care Team Description 11/24/2011 Allied Health/Nurse [facility] ied Health Visit Visit [facility] (depo) [address] [place] [phone] Social History Tobacco Use Types Packs/Day Years Used Date Smoking Tobacco: Every Day Comments: Pt. smokes 3 cigarettes daily Alcohol Use Standard Drinks/Week Comments Yes 0 (1 standard drink = 0.6 oz pure alcoho l) occasionally Sex Assigned at Date Recorded Not on file documented as of this encounter Nursing Notes 11/24/2011 9:00 AM CDT >> GABI MARVIN [facility] Nov 24, 2011 9:08 AM The following medication was given: MEDICATION: Depo Provera 150mg ROUTE: IM SITE: Deltoid - Right DOSE: 1ml LOT #: [id number] Apparel Cutter: [employer] EXPIRATION DATE: 07/2014 Next injection due February 08-February 22. Card given to patient Gabi Keanu HEMPHILL documented in this encounter Plan of Treatment Not on filedocumented as of this encounter Visit Diagnoses Diagnosis Contraception management - Primary Unspecified contraceptive management documented in this encounter Care Teams Arcade Games Mechanic Relationship Specialty Start Date End Date Sarah Montgomery PA-C PCP - General Family Practice 10/21/11 [address] [place] [address] documented as of this encounter
--- OUTSIDE RECORDS SUMMARY | 2022-04-14 08:59 | XMS_ITS | Encounter Summary ---
:1985 Author Organization [place] Address [address] [place] [address] Care Team Providers Name Role Phone Leland Montgomery PA-C Primary Care Provider Reason for Visit Reason Comments Colposcopy 10/21/11 LSIL, HSIL in 2008 w / colp Encounter Details Date Type Department Care Team Description 01/19/2012 Office Visit [facility] Nadiya Bautista on Pap smear (Primary Dx); [facility]procedure [facility] exam; [address] [place] [phone] [id number] Social History Tobacco Use Types Packs/Day Years [...] 8:50 AM CDT January 19, 2012 Shruti Janedict 1985 26 year old AB is a [...] vessels AV No Suspect cancer Ca Yes [place] adequate The nature of abnormal paps and [...] vaginal discharge or any other concerns. Assessment: AB is a 26 yo who is here for colposcopy. She had an LGSIL pap at her routine annual exam on 10/21/11. This is her 2nd abnormal pap smear. 1. Presumptive diagnosis is ELZBIETA 1. 2. Hx of HSV desires refill PLAN: 1. Await pathology 2. Refill for valtrex called in. Dr. Nadiya Bautista DO DEHYDROGENATION CONVERTER HELPER [facility] documented in this encounter Nursing Notes 01/19/2012 [...] completed using cuff size: regular Keara Ledesma SQL ENGINEER documented in this encounter Plan of [...] Component Value Ref Test Analysis Performed At [facility] Matomy Money Range Method Time Signature Copath Report Patient Name: SHRUTI KIRKLAND MR#: [id number] Specimen #: [id number] Collected: 01/19/2012 Received: 01/20/2012 Reported: 01/21/2012 13:41 [...] subjective spectrum. TJK/sz 01-21-12 TESTING LAB LOCATION: [address] ??[phone] COLLECTION SITE: Client: [facility] Location: LVOB (R) Specimen Anatomical Collection Method Collection Time Receive d Time (Source) Location / / Volume Laterality 01/19/2012 9:50 AM 2 8:14 CDT AM CDT Nadiya JENKINS Performing Organization Address City/State/ZIP Code Phon e Number COPATH HCG qualitative, urine (01/19/2012 8:47 AM CDT) athologist Signature HCG Qual Urine Negative NEG [facility] LAB Specimen Anatomical Collection Method Collection Time Receive d Time (Source) Location / / Volume Laterality Urine specimen 01/19/2012 8:47 AM 012 8:48 (specimen) CDT AM CDT Nadiya Bautista DO LAB - URINE ORDERABLES Performing Organization Address City/State/ZIP Code Phon e Number [facility] [address] [place] [address] [facility] documented in this encounter Visit Diagnoses Diagnosis Papanicolaou smear of cervix with low gr angelo squamous intraepithelial lesion (LGSIL) - Primary Pre-procedure lab exam Pre-procedural laboratory examination Recurrent herpes simplex Herpes simplex without mention of compli cation documented in this encounter Care Teams Assembler Rubber Footwear Relationship Specialty Start Date End Date Leland Montgomery PA-C PCP - General Family Practice 10/21/11 [address] [place] [address] documented as of this encounter
--- OUTSIDE RECORDS SUMMARY | 2022-04-14 08:59 | XMS_ITS | Encounter Summary ---
:1985 Author Organization [place] Address [address] [place] [address] Care Team Providers Name Role Phone Sonny [place] MD Primary Care Provider Unavailable Encounter Details Date Type Department Care Team Description 09/01/2008 Office Visit [facility] Sonny Murray HSIL on PA P Smear [facility] MD Yoel (Primary Dx) [address] [place] [address] Social History Tobacco Use Types [...] Body Mass Index 23.05 07/13/2008 2:15 PM CRANKSHAFT GRINDER documented in this encounter Progress Notes Sonny Murray - 09/01/2008 3:59 PM CDT SUBJECTIVE:: Shruti Kirkland, is a 22 year old female, [...] DUVAL Fri Sep 01, 2008 3:25 PM Shruti Kirkland presents for colp.Pt had HSIL pap [...] Value Ref Test Analysis Performed At [facility] Range Method Time Signature Copath Report Patient Name: SHRUTI KIRKLAND MR#: [id number] Specimen #: [id number] Collected: 09/01/2008 Received: 09/04/2008 Reported: 09/05/2008 15:13 [...] or malignan cy. COMMENT: Previous Pap. smear ([id number]) was positive for high grade s quamous [...] specimen is submitted in its en tirety. MGP/kd MICROSCOPIC: A and B. ??Microscopic examination was performed. MGP/kd 09-05-08 TESTING LAB LOCATION: [address] ??[phone] COLLECTION SITE: Client: [facility] Location: RIOB (R) Specimen (Source) Anatomical [...] (HGSIL) documented in this encounter Care Teams Video Clerk Relationship Specialty Start Date End Date Sonny [place] MD PCP - General 06/24/0410/19 documented as of this encounter
--- OUTSIDE RECORDS SUMMARY | 2022-04-14 08:59 | XMS_ITS | Encounter Summary ---
:1985 Author Organization [place] Address [address] [place] [address] Care Team Providers Name Role Phone Sarah Montgomery PA-C Primary Care Provider Reason for Visit Reason Onset Date Comments Call Back 05/11/2012 abdominal pain Encounter Details Date Type Department Care Team Description 05/11/2012 Telephone [facility] Valentina, Call B ack (abdominal Clinic [place] Sarah Aguilar PA-C pain) [id number] [place] [phone] Social History Tobacco Use Types Packs/Day Years [...] 3:54 PM CST Physician triaged. Rachell Peña Flume Worker CTURAL STEEL DETAILER Telephone Encounter - Nadiya Bautista DO - 05/11/2012 4:33 PM STRUCTURAL STEEL DETAILER Reviewed, agree, Dr. Nadiya Bautista DO Obstetrics and Gynecology [facility] and Yoder CTURAL STEEL DETAILER Telephone Encounter - Annette White - 05/11/2012 [...] pain on Advised pt to see an reel blade bender furnace tender MD to r/o ectopic Pt placed on Dr. Bautista schedule on 05/11/[address] Bautista as an FYI. Annette White RN. CTURAL STEEL DETAILER Telephone Encounter - Annette White - 05/11/2012 1:15 PM CST LEFT VM 4 PTCB A faint line would indicate hcg detection a hormone produced during . Pt to make an appt @ 10-12 weeks (unless she is high risk sooner) with PAPER MACHINE TENDER. Keep appt with Dr. Maciel for abdominal pain, however abdominal pain should be assessed by RN for possibility of tubal . If sever pt to go to ER. US would need to be done to r/o tubal . Annette White RN. CTURAL STEEL DETAILER Telephone Encounter - Rachell Peña - 05/11/2012 11:41 AM CST Name of caller: Rhonda Relationship to pt: self Reason for call: patient scheduled with Dr. Maciel and wondering if she needs to see OBGYN. Patient took test and was very faint. Patient wondering if she should keep appointment with provider. Best phone number to reach pt at is: [phone] Ok to leave a message with medical info? Pharmacy information: Rachell Peña Flume Worker CTURAL STEEL DETAILER documented in this encounter Plan of Treatment Not on filedocumented as of this encounter Visit Diagnoses Not on filedocumented in this encounter Care Teams Senior Principal Relationship Specialty Start Date End Date Sarah Montgomery PA-C PCP - General Family Practice 10/21/11 [address] [place] [address] documented as of this encounter
--- OUTSIDE RECORDS SUMMARY | 2022-04-14 08:59 | XMS_ITS | Encounter Summary ---
:1985 Author Organization [place] Address [address] [place] [address] Care Team Providers Name Role Phone Sonny [place] MD Primary Care Provider Unavailable Reason for Visit Reason Comments Derm Problem HPV/genital warts Encounter Details Date Type Department Care Team Description 06/19/2008 Office Visit [facility] Sonny Murray Screening for Malignant Neoplasm of the Cervix (Primary Dx); [facility] MD Yoel Special Scree luisa Examination for Other Specified Chlamydial Diseases; [facility] Vaccination-Viral Disea se; [address] HPV (Human Papilloma Virus) Anogenital Infection [address] [place] [address] Social History Tobacco Use Types Packs/Day Years Used Date Smoking Tobacco: Never Alcohol Use Standard Drinks/Week Comments No 0 (1 standard drink = 0.6 oz pure alcoho l) Sex Assigned at Date Recorded Not on file documented as of this encounter Last Filed Vital Signs Vital Sign Reading Time Taken Comments Blood Pressure 100/70 06/19/2008 5:15 PM GENERAL MATCHER Pulse - - Temperature - - Respiratory Rate - - Oxygen Saturation - - Inhaled Oxygen Concentration - - Weight 64.2 kg (141 lb 8 oz) 06/19/2008 5:15 PM GENERAL MATCHER Height 167.6 cm (5' 6) 06/19/2008 5:15 PM GENERAL MATCHER Body Mass Index 22.84 06/19/2008 5:15 PM GENERAL MATCHER documented in this encounter Progress Notes Sonny [...] TCA, declined condolyx, aldara. ASSESSMENT: Satisfactory annual plate setter exam. HPV. PLAN: 1) Pap smear 2) Mammography, lipids at appropriate intervals PE: reviewed health maintenance including diet, regular exercise and periodic exams. RAL MATCHER documented in this encounter Nursing Notes 06/19/2008 5:15 PM CST >> SAUMYA SHAVER Mon Jun 19, 2008 5:33 PM Rhonda Kirkland presents for consult for genital warts. [facility]. States warts are between [...] (Human Papil darius LESION, UP TO 14 GENERAL MATCHER Virus) Anogenital Infection CL AFF Routine 06/19/2008 7:23 PM Special Screening Resu lts for this N.GONORRHOEAE, DNA GENERAL MATCHER Examination for proced ure are in AMP PROBE Other Specified the results Chlamydial Diseases section. CL AFF CHLMYD Routine 06/19/2008 7:23 PM Special Screening Res ults for this TRACH, DNA, AMP GENERAL MATCHER Examination for procedure are in PROBE Other Specified the results Chlamydial Diseases section. HCL PAP THIN LAYER Routine 06/19/2008 12:00 AM Screening for R esults for this SCREEN GENERAL MATCHER Malignant Neoplasm procedure are in of the Cervix the results section. documented in this encounter Results CHLMYD TRACH, DNA, AMP PROBE (06/19/2008 7:23 PM GENERAL MATCHER) Component Value Ref Test Analysis Performed At [facility] gist Range Method Time Signature Specimen Vagina [facility] LAB Chlamydia Negative for C. trachomatis rRNA by park interpretive ranger mediated amplification. [facility] Trachomatis A negative result [...] Volume Laterality 06/19/2008 7:23 PM 9 7:29 GENERAL MATCHER PM GENERAL MATCHER Sonny [place] MD LABORATORY Performing Organization Address City/[facility]/ZIP Code Phon e Number [phone] [place] [address] LAB [facility] N.GONORRHOEAE, DNA, (GC) (06/19/2008 7:23 PM GENERAL MATCHER) Component Value Ref Test Analysis Performed At [facility] c-[place] Range Method Time Signature Specimen Vagina [facility] LAB N Gonorrhea Negative for N. gonorrhoeae rRNA by park interpretive ranger mediated amplification. [facility] PCR A negative result by transc ription mediated amplification does not preclude the EEK presence of N. gonorrhoeae infection because re sults are dependent on proper [place] [facility] and adequate collection, absence of inhibitors, and suffici ent rRNA to be detected. Specimen Anatomical Collection Method Collection Time Receive d Time (Source) Location / / Volume Laterality 06/19/2008 7:23 PM 9 7:29 GENERAL MATCHER PM GENERAL MATCHER Sonny [place] MD LABORATORY Performing Organization Address [facility] Code Phon e Number [phone] [place] [address] LAB [facility] (ABNORMAL) A THIN LAYER PAP SCREEN (06/19/2008 12:00 AM GENERAL MATCHER) Component Value Ref Test Analysis Performed At [facility] Range Method Time Signature PAP HSIL (A) COPATH Copath Report COPATH Patient Name: RHONDA KIRKLAND MR#: [id number] Specimen #: [id number] Collected: 06/19/2008 Received: 06/21/2008 Reported: 06/23/2008 16:27 [...] Mauri Pisano M.D. [facility] CLINICAL HISTORY: LMP: 06/15/08 Previous normal pap Date of Last Pap: 06/29/06, TESTING LAB LOCATION: [facility] [address], [place] ??[phone] COLLECTION SITE: Client: ??[facility] Location: RIOB (R) Specimen (Source) Anatomical Collection Method Collection Time Re ceived Time Location / / Volume Laterality 06/19/2008 06/21/2008 9:03 AM GENERAL MATCHER Sonny [place] MD LABORATORY Performing Organization Address [...] site documented in this encounter Care Teams Trust Advisor Relationship Specialty Start Date End Date Sonny Murray MD PCP - General 06/24/0410/19 documented as of this encounter
--- OUTSIDE RECORDS SUMMARY | 2022-04-14 08:59 | XMS_ITS | Encounter Summary ---
:1985 Author Organization [facility] Address [address] [place] [address]. [place] [address] Care Team Providers Name Role Phone Sarah Montgomery PA-C Primary Care Provider [phone] Reason for Visit Reason Comments Repeat Pap Smear Contraception Pt c/o spotting on medicatio n - has not had a full period X2 months Encounter Details Date Type Department Care Team Description 06/30/2012 Office Visit [facility] Nadiya Bautista ption (Primary Dx); [facility] DO CHERYL [place] on Pap smear [place] [id number] [place] [address] [address] [place], [place] [address] [address] [place], [place] [phone] [address] (Work) [phone] Social History Tobacco Use Types Packs/Day Years [...] Comments Blood Pressure 92/60 06/30/2012 8:54 AM CRYOGENICS ENGINEER Pulse - - Temperature - - Respiratory Rate - - Oxygen Saturation - - Inhaled Oxygen Concentration - - Weight 60.6 kg (133 lb 8 oz) 06/30/2012 8:54 AM CRYOGENICS ENGINEER Height 167.6 cm (5' 6) 06/30/2012 8:54 AM CRYOGENICS ENGINEER Body Mass Index 21.55 06/30/2012 8:54 AM CRYOGENICS ENGINEER documented in this encounter Patient Instructions Patient InstructionsNadiya Bautista DO - 06/30/2012 1:51 PM CST Return in 6 mo for pap GENICS ENGINEER documented in this encounter Progress Notes Nadiya Bautista DO - 06/30/2012 9:05 AM CST S: ELZBIETA 1 here for repeat pap smear O: BP 92/60 Ht 5' 6 (1.676 m) Wt 133 lb 8 oz (60.555 kg) BMI 21.55 kg/m2 PULP AND PAPER TESTER PELVIC: NEGATIVE, normal external genitalia, normal vaginal mucosa, normal cervix. Labs: pap is pending Assessment: 26 y/o with ELZBIETA 1 for surveillance Contraception: Desires to control that will not cause spotting Plan: Repeat pap pending Rx [facility] Dr. Nadiya Bautista DO Obstetrics and Gynecology [facility] GENICS ENGINEER documented in this encounter Nursing Notes 06/30/2012 [...] Pap smear Results for this LAYER, DIAGNOSTIC CRYOGENICS ENGINEER procedure are in the results section. HPV SCR W REF TO Routine 06/30/2012 12:00 AM Resu lts for this CONCHA ANAL PAP OR CRYOGENICS ENGINEER procedure a re in TISSUE the results section. documented in this encounter Results (ABNORMAL) PAP imaged thin layer, diagnostic (06/30/2012 10:30 AM CRYOGENICS ENGINEER) Component Value Ref Test Analysis Performed At [facility] Range Method Time Signature PAP ASC-US (A) NUBIA Dunbar Report NUBIA Patient Name: SHRUTI KIRKLAND MR#: [id number] Specimen #: [id number] Collected: 06/30/2012 Received: 07/01/2012 Reported: 07/05/2012 09:01 [...] Martina Villegas M.D. Processed and screened at [facility] CLINICAL HISTORY: Irregular periods, Previous abnormal pap: LSIL Date of Last Pap: 10/21/11, Papanicolaou Test Limitations: ??Cervical cytology is a scre ening test with limited sensitivity; regular screening is critical for cancer prevention; Pap tests are primarily effective for the diagnosis/prevention of squamous cell carcinoma, not adenoca rcinomas or other cancers. TESTING LAB LOCATION: [address] ??[address] COLLECTION SITE: Client: ??[facility] Location: RIOB (R) Specimen (Source) Anatomical Collection Method Collection Time Re ceived Time Location / / Volume Laterality Cytologic 06/30/2012 10:30 07/01/2012 material AM CRYOGENICS ENGINEER 11:06 AM CRYOGENICS ENGINEER (specimen) Nadiya Teresa Lily DO LAB - OPTIME CLINICAL SPECIM EN Performing Organization Address City/State/ZIP Code Phon e Number COPATH HPV screen with reflex to genotype (06/30/2012 12:00 AM CRYOGENICS ENGINEER) Component Value Ref Test Analysis Performed At [facility] Range Method Time Signature Copath Report Patient Name: SHRUTI KIRKLAND MR#: [id number] Specimen #: [id number] Collected: 06/30/2012 00:00 Received: 07/06/2012 11:34 Reported: 07/09/2012 08:49 Ordering Phy(s): NADIYA TERESA TRUNGGoldie TEST(S) REQUESTED: Human Papillomavirus Screen Analysis SPECIMEN DESCRIPTION: Cervical Cells METHODOLOGY: ??Total cellular DNA was extracted from the abo ve specimen and up to 1 ug subjected to DNA amplification with a series of oligonucleotide primers directed to the L1 region of the hum an papillomavirus genome. ??The resulting PCR fragments were th en by capillary electrophoresis using a Seeqpod with Bio Calculator software. ??The PCR products [...] was developed and its performance determined by th e [facility] ??Molecular Diagnostic Laboratory. It has not been cleared or approved by the U.S. Food and Luis g Administration. ??The FDA has determined that such clearance or approval is not necessary. ??Pursuant to the requirements of CLIA'88, this laboratory has established and verified the test's accuracy and precision. ??This test is used for clinical purposes. Electronically Signed Out By: YOSEF Granite Installer TESTING LAB LOCATION: [facility] [address] [facility] [address] [place] [id number] COLLECTION SITE: Client: ??[facility] Location: ??RIOB (R) Specimen (Source) Anatomical Collection Method Collection Time Re ceived Time Location / / Volume Laterality 06/30/2012 07/06/2012 11:3 4 AM CRYOGENICS ENGINEER Nadiya Bautista DO LAB - GENOMICS Performing Organization Address City/State/ZIP Code Phon e Number COPATH documented in this encounter Visit Diagnoses Diagnosis Contraception - Primary Unspecified contraceptive management LGSIL on Pap smear Papanicolaou smear of cervix with low gr angelo squamous intraepithelial lesion (LGSIL) documented in this encounter Care Teams Border Inspector Relationship Specialty Start Date End Date Sarah Montgomery PA-C PCP - General Family Practice 10/21/11 [address] [place] [address] documented as of this encounter
--- OUTSIDE RECORDS SUMMARY | 2022-04-14 08:59 | XMS_ITS | Encounter Summary ---
:1985 Author Organization [place] Address [address] [place] [address] Care Team Providers Name Role Phone Morris [...] as of this encounter Progress Notes Interface, Ground Crew Chief - 08/12/2010 6:28 AM CDT Allergies ?? [...] all medications as directed. Signatures JADEN FOSTER (RN)[Signed 03:04] Authored: Allergies, Basic Medication Information, Discharge Orders, Destination documented in this encounter Plan of Treatment Not on filedocumented as of this encounter Visit Diagnoses Not on filedocumented in this encounter Care Teams Aquatics Lifeguard Relationship Specialty Start Date End Date Morris Murray MD PCP - General 06/24/0410/19 documented as of this encounter
--- OUTSIDE RECORDS SUMMARY | 2022-04-14 09:00 | XMS_ITS | Encounter Summary ---
:1985 Author Organization [place] Address [address] [place] [address] Care Team Providers Name Role Phone Sonny Murray MD Primary Care Provider Unavailable Reason for Visit Reason Comments Property Clerk Exam Encounter Details Date Type Department Care Team Description 06/27/2005 Office Visit [facility] Sonny Murray ROUTINE GY N EXAMINATION (Primary Dx); [facility] MD Yoel SCREENING FOR VENERAL DIS; [place] CONTRACEPTIVE MANGMT NEC [address] [place] [address] Social History Tobacco Use Types Packs/Day Years Used Date Smoking Tobacco: Never Alcohol Use Standard Drinks/Week Comments No 0 (1 standard drink = 0.6 oz pure alcoho l) Sex Assigned at Date Recorded Not on file documented as of this encounter Last Filed Vital Signs Vital Sign Reading Time Taken Comments Blood Pressure 100/76 06/27/2005 2:45 PM FIXED WING PILOT Pulse - - Temperature - - Respiratory Rate - - Oxygen Saturation - - Inhaled Oxygen Concentration - - Weight 63.8 kg (140 lb 9.6 oz) 06/27/2005 2:45 PM FIXED WING PILOT Height 168.9 cm (5' 6.5) 06/27/2005 2:45 PM FIXED WING PILOT Body Mass Index 22.35 06/27/2005 2:45 PM FIXED WING PILOT Body Mass Index Percentile 63.83 % 06/27/2005 [...] and uterusantiverted. Extremities: Normal ASSESSMENT: Satisfactory annual enrobing machine corder exam. PLAN: 1) Pap smear 2) Mammography, lipids at appropriate intervals PE: reviewed health maintenance including diet, regular exercise and periodic exams. D WING PILOT Shiloh Duval - 06/27/2005 2:45 PM FIXED WING PILOT Addended by: SHILOH DUVAL on: 06/27/2005 5:16:18 PM Modules accepted: Orders D WING PILOT documented in this encounter Nursing Notes 06/27/2005 [...] URINE, NURSE Routine 06/27/2005 5:15 PM Routine Property Clerk R esults for this BACKOFFICE FIXED WING PILOT Examination procedure are in Contraceptive Mangmt the res ults Nec section. CL AFF Routine 06/27/2005 4:12 PM Screening For Results for this N.GONORRHOEAE, DNA FIXED WING PILOT Veneral Dis procedure are in AMP PROBE the results section. CL AFF CHLMYD TRACH, Routine 06/27/2005 4:12 PM Screening For Results for this DNA, AMP PROBE FIXED WING PILOT Veneral Dis procedure are in the results section. HCL PAP THIN LAYER Routine 06/27/2005 12:00 Routine Property Clerk Resul ts for this SCREEN AM FIXED WING PILOT Examination procedure are i n the results section. documented in this encounter Results HCG, URINE, NURSE BACKOFFICE (06/27/2005 5:15 PM FIXED WING PILOT) P athologist Signature HCG Qual Urine negative [facility] Specimen (Source) Anatomical Collection Method Collection Time Re ceived Time Location / / Volume Laterality Urine specimen 06/27/2005 5:15 PM (specimen) FIXED WING PILOT Sonny Murray MD LABORATORY Performing Organization Address City/State/ZIP Code Phon e Number [facility] CHLMYD TRACH, DNA, AMP PROBE (06/27/2005 4:12 PM FIXED WING PILOT) Component Value Ref Test Analysis Performed At [facility] Method Time Signature Specimen Vagina [facility] LABS Chlamydia Negative for C. trachomatis rRNA by plow holder mediated amplification. [facility] Trachomatis A negative result by transc ription mediated amplification does not preclude the CHESHIRE PCR presence of C. trachomatis infection because results are dependent on proper CAMPUS LABS and adequate collection, absence of inhibitors, and suffici ent rRNA to be detected. Specimen Anatomical Collection Method Collection Time Receive d Time (Source) Location / / Volume Laterality 06/27/2005 4:12 PM 6 4:17 FIXED WING PILOT PM FIXED WING PILOT Sonny Murray MD LABORATORY Performing Organization Address City/[facility]/ZIP Code Phon e Number [address] LABS N.GONORRHOEAE, DNA, (GC) (06/27/2005 4:12 PM FIXED WING PILOT) Component Value Ref Test Analysis Performed At [facility] Method Time Signature Specimen Vagina [facility] LABS N Gonorrhea Negative for N. gonorrhoeae rRNA by plow holder mediated amplification. [facility] PCR A negative result by transc ription mediated amplification does not preclude the CHESHIRE presence of N. gonorrhoeae infection because re sults are dependent on proper CAMPUS LABS and adequate collection, absence of inhibitors, and suffici ent rRNA to be detected. Specimen Anatomical Collection Method Collection Time Receive d Time (Source) Location / / Volume Laterality 06/27/2005 4:12 PM 6 4:17 FIXED WING PILOT PM FIXED WING PILOT Sonny Murray MD LABORATORY Performing Organization Address City/[facility] Code Phon e Number [address] LABS A THIN LAYER PAP SCREEN (06/27/2005 12:00 AM FIXED WING PILOT) Component Value Ref Test Analysis Performed At [facility] Method Time Signature PAP NIL COPATH Copath Report COPATH Patient Name: RHONDA KIRKLAND MR#: [id number] Specimen #: [id number] Collected: 06/27/2005 Received: 06/30/2005 Reported: 07/01/2005 10:44 [...] GRANT Hinson (ASCP) [facility] CLINICAL HISTORY: LMP: 06-10-05 Oral Control Pill, Previous normal pap Date of Last Pap: 06-24-04, TESTING LAB LOCATION: [address] ??[id number] COLLECTION SITE: Client: ??[facility] Location: RIOB (R) Specimen (Source) Anatomical Collection Method Collection Time Re ceived Time Location / / Volume Laterality 06/27/2005 06/30/2005 9:25 AM FIXED WING PILOT Sonny Murray MD LABORATORY Performing Organization Address City/State/ZIP Code Phon e Number COPATH documented in this encounter Visit Diagnoses Diagnosis Routine gynecological examination - Prim steve Screening examination for venereal disea se Other general counseling and advice for contraceptive management documented in this encounter Care Teams Wait Staff Relationship Specialty Start Date End Date Sonny Murray MD PCP - General 06/24/0410/19 documented as of this encounter
--- OUTSIDE RECORDS SUMMARY | 2022-04-14 09:00 | XMS_ITS | Encounter Summary ---
:1985 Author Organization [place] Address [address] [place] [address] Care Team Providers Name Role Phone DoctorJuancho MD Primary Care Provider Unavailable Reason for Visit Reason Comments Pharyngitis Encounter Details Date Type Department Care Team Description 10/20/2002 Abstract M [facility] Urgent Corazon Orozco [facility] Shyla Stone PA-C [address] [phone] [place] [address] [phone] (Wo rk) Social History Tobacco Use Types Packs/Day Years Used Date Smoking Tobacco: Never Assessed Sex Assigned at Date Recorded [...] on filedocumented in this encounter Care Teams Desolderer Relationship Specialty Start Date End Date Juancho Johnston MD PCP - General 07/09/01 06/23/04 documented as of this encounter
--- OUTSIDE RECORDS SUMMARY | 2022-04-14 09:00 | XMS_ITS | Encounter Summary ---
:1985 Author Organization [place] Address [address] [place] [address] Care Team Providers Name Role Phone Morris Murray MD Primary Care Provider Unavailable Reason for Visit Reason Onset Date Comments Refill Request 06/10/2005 Encounter Details Date Type Department Care Team Description 06/10/2005 Refill [facility] Women's Morris Murray MD Refill Request Clinic [address] [place] [address] Social History Tobacco Use Types Packs/Day Years Used Date Smoking Tobacco: Never Alcohol Use Standard Drinks/Week Comments No 0 (1 standard drink = 0.6 oz pure alcoho l) Sex Assigned at Date Recorded Not on file documented as of this encounter Miscellaneous Notes Telephone Encounter - Morris Murray - 06/12/2005 4:40 PM CST faxed AL ABUSE COUNSELLOR Telephone Encounter - Saumya Shaver - 06/10/2005 9:39 AM CST Faxed refill request received. requesting supply for #[phone]. Last pap 06/24/04. Apt 06/27/05. Saumya Shaver RN AL ABUSE COUNSELLOR documented in this encounter Plan of Treatment Not on filedocumented as of this encounter Visit Diagnoses Not on filedocumented in this encounter Care Teams Clinical Rehabilitation Aide Relationship Specialty Start Date End Date Morris Murray MD PCP - General 06/24/0410/19 documented as of this encounter
--- OUTSIDE RECORDS SUMMARY | 2022-04-14 09:00 | XMS_ITS | Encounter Summary ---
:1985 Author Organization [place] Address [address] [place] [address] Care Team Providers Name Role Phone Morris [...] 04/20/2005 11:40 Re sults for this PM SUPERVISOR HANGING AND TRIMMING procedure are i n the results section. UA MACROSCOPIC WITH STAT 04/20/2005 11:40 Resu lts for this REFLEX TO MICRO PM SUPERVISOR HANGING AND TRIMMING procedure ar e in the results section. URINE MICROSCOPIC Routine 04/20/2005 11:40 Result s for this EXAM PM SUPERVISOR HANGING AND TRIMMING procedure are i n the results section. URINE CULTURE Routine 04/20/2005 11:40 Results fo r this PM SUPERVISOR HANGING AND TRIMMING procedure are i n the results section. documented in this encounter Results (ABNORMAL) UA macroscopic with reflex to micro (04/20/2005 11:40 PM SUPERVISOR HANGING AND TRIMMING) Component Value Ref Test Analysis Performed At [facility] Range Method Time Signature Source Unspecified [facility]IS[facility] Urine Color Urine Yellow MISYS Appearance Urine Clear MISYS Glucose Urine Negative NEG MISYS mg/dL Bilirubin Urine Negative NEG MISYS Ketones Urine Negative NEG MISYS mg/dL Specific [place] 1.020 1.003 - MISYS Urine 1.035 Blood [...] / Volume Laterality 04/20/2005 11:40 04/20/2005 PM SUPERVISOR HANGING AND TRIMMING 11:41 PM SUPERVISOR HANGING AND TRIMMING [facility] LAB - URINE ORDERABLES Performing Organization Address [facility] Phon e Number MISYS HCG qualitative urine (04/20/2005 11:40 PM SUPERVISOR HANGING AND TRIMMING) P athologist Signature HCG Qual Urine Negative NEG MISYS Specimen Anatomical Collection Method Collection Time Receive d Time (Source) Location / / Volume Laterality 04/20/2005 11:40 04/20/2005 PM SUPERVISOR HANGING AND TRIMMING 11:41 PM SUPERVISOR HANGING AND TRIMMING [facility] - URINE ORDERABLES Performing Organization Address [facility] Phon e Number MISYS Microscopic exam urine (04/20/2005 11:40 PM SUPERVISOR HANGING AND TRIMMING) P athologist Signature WBC Urine O - 2 0 - 2 /HPF MISYS RBC Urine O - 2 0 - 2 /HPF MISYS Specimen Anatomical Collection Method Collection Time Receive d Time (Source) Location / / Volume Laterality 04/20/2005 11:40 04/20/2005 PM SUPERVISOR HANGING AND TRIMMING 11:54 PM SUPERVISOR HANGING AND TRIMMING [facility] LAB - URINE ORDERABLES Performing Organization Address [facility] Phon e Number MISYS Urine culture (04/20/2005 11:40 PM SUPERVISOR HANGING AND TRIMMING) [facility] Method Time Signature Specimen Unspecified MISYS Description Urine Culture Micro No growth MISYS Micro Report FINAL [id number] MISYS Status Specimen Anatomical Collection Method Collection Time Receive d Time (Source) Location / / Volume Laterality 04/20/2005 11:40 04/21/2005 PM SUPERVISOR HANGING AND TRIMMING 12:13 AM SUPERVISOR HANGING AND TRIMMING Luis Fernandoon Kasey [facility] - MICRO GENERAL ORDERABL ES Performing Organization Address [facility] Phon e Number MISYS documented in this encounter Visit Diagnoses Not on filedocumented in this encounter Care Teams House Repairer Relationship Specialty Start Date End Date Morris Murray MD PCP - General 06/24/0410/19 documented as of this encounter
--- OUTSIDE RECORDS SUMMARY | 2022-04-14 09:00 | XMS_ITS | Encounter Summary ---
:1985 Author Organization [place] Address [address] [place] [address] Care Team Providers Name Role Phone Morris Murray MD Primary Care Provider Unavailable Reason for Visit Reason Onset Date Comments Refill Request 03/25/2005 Encounter Details Date Type Department Care Team Description 03/25/2005 Refill [facility] Women's Morris Murray MD Refill Request Clinic [address] [place] [address] Social History Tobacco Use Types Packs/Day Years Used Date Smoking Tobacco: Never Alcohol Use Standard Drinks/Week Comments No 0 (1 standard drink = 0.6 oz pure alcoho l) Sex Assigned at Date Recorded Not on file documented as of this encounter Miscellaneous Notes Telephone Encounter - Morris Murray - 03/25/2005 3:38 PM CST faxed IC RELATIONS PLAYER Telephone Encounter - Sauyma Shaver - 03/25/2005 10:09 AM CST Faxed refill request received. requesting supply for #84. Last pap 06/24/04. IC RELATIONS PLAYER documented in this encounter Plan of Treatment Not on filedocumented as of this encounter Visit Diagnoses Not on filedocumented in this encounter Care Teams Account Resolution Expert Relationship Specialty Start Date End Date Morris Murray MD PCP - General 06/24/0410/19 documented as of this encounter
--- OUTSIDE RECORDS SUMMARY | 2022-04-14 09:00 | XMS_ITS | Encounter Summary ---
:1985 Author Organization [place] Address [address] [place] [address] Care Team Providers Name Role Phone Morris Murray MD Primary Care Provider Unavailable Reason for Visit Reason Comments Ultrasound Encounter Details Date Type Department Care Team Description 07/02/2004 Orders Only [facility] Women's [place] NSTRUAL DISORDER [facility] [place] (Primary Dx) [address] [place] [address] Social History Tobacco Use Types Packs/Day Years Used Date Smoking Tobacco: Never Alcohol Use Standard Drinks/Week Comments No 0 (1 standard drink = 0.6 oz pure alcoho l) Sex Assigned at Date Recorded Not on file documented as of this encounter Plan of Treatment Not on filedocumented as of this encounter Procedures Procedure Name Priority Date/Time Associated Diagnosis Comme [facility] US PELVIC NON-OB, Routine 07/02/2004 Menstrual Disorder N ec Results for this COMPLETE procedure are i n the results section . documented in this encounter Results SONO PELVIS COMPLETE (07/02/2004) Anatomical Region Laterality Modality Ultrasound Impressions 07/02/2004 Complete pelvic ultrasound utilizing both abdominal and vaginal transducers. ??Normal study. JULIOCESAR NARANJO MD Narrative 07/02/2004 ULTRASOUND - PEL[address] STRE[address] COMMISSIONER Referring MD: Morris Murray MD Primary Clinic: [facility] Ultrasound disk#: [id number] CLINICAL INFORMATION Indications for [...] Primary documented in this encounter Care Teams Presentation Manager Relationship Specialty Start Date End Date Morris Murray MD PCP - General 06/24/0410/19 documented as of this encounter
--- OUTSIDE RECORDS SUMMARY | 2022-04-14 09:00 | XMS_ITS | Encounter Summary ---
:1985 Author Organization [place] Address [address] [place] [address] Care Team Providers Name Role Phone Morris Murray MD Primary Care Provider Unavailable Encounter Details Date Type Department Care Team Description 04/20/2005 Emergency room [facility] JOHN MIRANDA [address] [place] [address] (Wo rk) Social History Tobacco Use Types Packs/Day Years Used Date Smoking Tobacco: Never Alcohol Use Standard Drinks/Week Comments No 0 (1 standard drink = 0.6 oz pure alcoho l) Sex Assigned at Date Recorded Not on file documented as of this encounter Progress Notes Interface, Box Spinner - 04/20/2005 11:59 PM 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 HISTORY OF [...] No known drug allergies. PRIMARY MEDICAL DOCTOR: [facility]. IMMUNIZATIONS: Up-to-date. FAMILY HISTORY: Noncontributory. SOCIAL [...] CARDOSO MD MT: [place] Name: RHONDA KIRKLAND MRN: [id number] Account: [id number] : 1985 Visit Date: 04/20/2005 Document: [id number] R OPERATOR HELPER HOT METAL documented in this encounter Plan of Treatment Not on filedocumented as of this encounter Visit Diagnoses Not on filedocumented in this encounter Care Teams Box Machine Operator Relationship Specialty Start Date End Date Morris Murray MD PCP - General 06/24/0410/19 documented as of this encounter
--- OUTSIDE RECORDS SUMMARY | 2022-04-14 09:00 | XMS_ITS | Encounter Summary ---
:1985 Author Organization [facility] Address [address] [place] [id number] Care Team Providers Name Role Phone Sonny Murray MD Primary Care Provider Unavailable Reason for Visit Reason Comments Abnormal Uterine Bleeding Mass Encounter Details Date Type Department Care Team Description 06/24/2004 [facility] N [facility] (Primary Dx); [facility] MD Yoel MENSTRUAL DIS ORDER [facility] [address] [place] [id number] Social History Tobacco Use Types Packs/Day Years Used Date Smoking Tobacco: Never Alcohol Use Standard Drinks/Week Comments No 0 (1 standard drink = 0.6 oz pure alcoho l) Sex Assigned at Date Recorded Not on file documented as of this encounter Last Filed Vital Signs Vital Sign Reading Time Taken Comments Blood Pressure 100/68 06/24/2004 2:33 PM [employer] Pulse - - Temperature - - Respiratory Rate - - Oxygen Saturation - - Inhaled Oxygen Concentration - - Weight 63 kg (138 lb 12.8 oz) 06/24/2004 2:33 PM [employer] Height - - Body Mass Index - - documented in this encounter Progress Notes 06/24/2004 2:45 PM [employer] SUBJECTIVE: Rhonda Kirkland is a 18 year [...] uterus antiverted. Extremities: Normal ASSESSMENT: Satisfactory annual obgyn specialist exam. Right breast lump in skin? AUB [...] THIN LAYER Routine 06/24/2004 12:00 AM Routine Nuclear Equipment Design Engineer Re sults for this SCREEN [employer] Examination procedure are i n the results section. documented in this encounter Results A THIN LAYER PAP SCREEN (06/24/2004 12:00 AM [employer]) Component Value Ref Test Analysis Performed At [facility] Range Method Time Signature Copath Report Patient Name: RHONDA KIRKLAND MR#: [id number] Specimen #: [id number] Collected: 06/24/2004 Received: 06/25/2004 Reported: 06/26/2004 14:32 Ordering Phy(s): SONNY MURRAY SPECIMEN/STAIN PROCESS: Pap thin layer prep screening ? Pap-Cyto x 1, Reflex HPV x 1 SOURCE: Cervical, endocervical ---- Pap thin layer prep screening SPECIMEN ADEQUACY: Satisfactory for evaluation. -Transitional zone component absent. CYTOLOGIC INTERPRETATION: Negative for Intraepithelial Lesion or Malignancy Electronically signed out by: JOHNNIE Sahni (ASCP) Processed and screened at [facility] CLINICAL HISTORY: LMP: 05/31/04 Abnormal Bleeding, First pap test, Specimen (Source) Anatomical Collection Method Collection Time Re ceived Time Location / / Volume Laterality 06/24/2004 06/25/2004 9:26 AM [employer] Sonny Murray MD LABORATORY Performing Organization Address City/State/ZIP Code Phon e Number COPATH documented in this encounter Visit Diagnoses Diagnosis Routine gynecological examination - Prim steve Other disorder of menstruation and other abnormal bleeding from female genital tract documented in this encounter Care Teams Panel Coverer Relationship Specialty Start Date End Date Sonny Murray MD PCP - General 06/24/0410/19 documented as of this encounter
[2022-04-15 15:34] LABS: Rapid Plasma Reagin (RPR) Non Reactive (Non Reactive)
== END 2022-04-14 10:35 | disposition home or self-care (01) ==
PROVIDERS: PCP Physician Assistant Medical; Visit Provider Obstetrics & Gynecology
DX: Z34.93 Encounter for supervision of normal pregnancy, unspecified, third trimester (principal); Z3A.28 28 weeks gestation of pregnancy
CPT/HCPCS: 86592

== ENCOUNTER 2022-05-12 08:37 | Outpatient (CLI) | payer BC, SELFPAY ==
--- NOTE | 2022-05-12 08:45 | CRLHL7_ITS ---
For Patients: As a result of the Century Cures Act, medical imaging exams and procedure reports are released immediately into your electronic medical record. You may view this report before your referring provider. If you have questions, please contact your health care provider. INDICATION: Follow-up intracardiac echogenic focus COMPARISON: 02/13/2022 TECHNIQUE: Real time mcmahon scale imaging of the fetus was performed. FINDINGS: Sonographic imaging demonstrates a single living intrauterine gestation. Fetus demonstrates a regular cardiac rate of 136 beats per minute. Fetus has a vertex position. The placenta lies anteriorly. Amniotic fluid volume appears normal and there is a single deepest vertical pocket: 5.7 cm. Normal heart without evidence of echogenic focus. IMPRESSION: No echogenic intracardiac focus on today`s exam. Dictated by Cassius Wilkins MD @ 05/12/2022 10:21:26 AM (Electronically Signed)
== END 2022-05-12 08:38 | disposition home or self-care (01) ==
PROVIDERS: PCP Physician Assistant Medical; Visit Provider Obstetrics & Gynecology
DX: Z34.83 Encounter for supervision of other normal pregnancy, third trimester (principal); Z3A.32 32 weeks gestation of pregnancy
CPT/HCPCS: 76815; 76816

== ENCOUNTER 2022-06-03 10:59 | Outpatient (CLI) | payer BC, SELFPAY ==
[2022-06-04 13:29] LABS: Strep B DNA Probe NEGATIVE (Negative)
[2022-06-05 02:50] LABS: Strep B Pen/Amox Allergy No
== END 2022-06-03 11:00 | disposition home or self-care (01) ==
LOC: NFLDREF 10:59
PROVIDERS: PCP Physician Assistant Medical; Visit Provider Obstetrics & Gynecology
DX: Z34.93 Encounter for supervision of normal pregnancy, unspecified, third trimester (principal); Z3A.35 35 weeks gestation of pregnancy
CPT/HCPCS: 87081; 87653

== ENCOUNTER 2022-07-03 00:41 | Inpatient (IN) | payer BC, SELFPAY ==
[2022-07-03] VITALS (38 sets, daily range): BP systolic 89–137; BP diastolic 58–92; PULSE 76–123; RESP 15–16; TEMP 36.4–37.3; O2SAT 96–100
[2022-07-03 01:17] LABS: SARS PCR* Negative SARS-CoV-2 (Negative)
--- NOTE | 2022-07-03 01:18 | P.OBHP_ITS ---
OB - H&P: HPI Labor/Induction History of Present Illness Date Seen: 07/03/22 Chief Complaint: The patient is a 36 year old 3 para 2 at 40.0 weeks gestation by 7.4 wk TVUS consistent with LMP of 8.1 wk, who presents with contractions and rupture of membranes. Patient states large gush of fluid at 2340 pm on 07/02/2022 clear fluid, no contractions on arrival to hospital a little after midnight. States no vaginal bleeding, normal movement. No complications this , r outine care since early first trimester. Chief complaint: Maternity : 3 Para: 2 History of Present Dating criteria: based on LMP care: good care Ultrasounds: normal 1st trimester US and normal mid trimester US Medical complications: none Labs Blood type: A (+) positive Rubella: immune RPR/VDLR: nonreactive GBS status: negative HBsAG: negative Review of Systems Status of ROS: Reports: 10 or more systems reviewed and unremarkable except as noted in History and below Meds Home Medications and Allergies Home Medications Medication Instructions Recorded Confirmed Type prenat.vits,dario,jfa-yhul-riffv 1 tab PO QDAY 11/22/21 07/03/22 History sertraline 100 mg tablet 100 mg PO QDAY 11/22/21 07/03/22 History calcium carbonate 200 mg calcium 200 mg PO BID 04/14/22 07/03/22 History (500 mg) chewable tablet (Tums) Allergies Allergy/AdvReac Type Severity Reaction Status Date / Time No Known Drug Allergies Allergy Verified 07/03/22 01:48 OB - H&P: Exam Physical Exam: Vital signs: Temp Pulse Resp BP Pulse Ox 98 F 95 16 98/62 100 07/03/22 05:55 07/03/22 06:10 07/03/22 05:55 07/03/22 06:10 07/03/22 03:21 Constitutional: Constitutional: no acute distress Routine HEENT Exam: Head: Present atraumatic and normocephalic Routine Respiratory Exam: Respiratory: Present CTA bilaterally Routine Cardiovascular Exam: Cardiovascular: RRR Routine Abdominal Exam: Abdominal: Present soft Routine Exam: External: Present normal external exam Perineum Description: Normal Detailed Labor and Delivery Exam: Patient Gravid: Yes Dilation (cm): 3 Cervix position: mid Consistency: soft Contraction frequency (min): 3 Contraction duration (sec): 40 Fetus (Single): Station: -1 Amniotic Membrane Status: SROM Amniotic Membrane Fluid Description: Clear Heart Rate Baseline: 130 Monitor Accelerations: Present Monitor Decelerations: None Senior Software Manager Variability: Moderate (6-25) Detailed Lower Extremity Exam: Lower leg: bilateral: normal inspection Routine Skin Exam: Present warm and normal turgor Routine Neurological Exam: Present alert, oriented X3 and normal reflexes OB - Problem Based A/P Additional Plan (1) Leakage, amniotic fluid: Status: Acute Plan Admit labor and delivery anticipate epidural PRN
[2022-07-03] MEDS: LACTATED RINGERS 1000 ML 1,000 ML 900 ML IV ×2 (02:54→04:01)
[2022-07-03] MEDS: ROPIVACAINE 0.2% 100 ml 100 ML 12 MG EPIDURAL (03:16)
[2022-07-03] MEDS: LIDOCAINE 2% (PF) 5 ML VIAL EPIDURAL (03:21)
--- NOTE | 2022-07-03 03:28 | PM.ANBPRC ---
PFSH PFS Medical History (Updated 06/03/22 @ 16:30 by Cathryn Perea MD) Anxiety Delivery normal Genital herpes History of abnormal cervical Pap smear History of oral contraceptive use Surgical History (Updated 12/13/21 @ 11:13 by Russell Vanegas) H/O cardiac radiofrequency ablation History of cardiac radiofrequency ablation (RFA) Family History (Updated 11/14/21 @ 12:15 by Breonna Sherman) Maternal Grandmother Bladder cancer Breast cancer Cervical cancer Mother High blood pressure Father Heart disease Maternal Grandfather Diabetes Paternal Grandfather Diabetes Paternal Grandmother Diabetes Social History Smoking Status: Former smoker Little interest or pleasure in doing things: not at all Feeling down, depressed, or hopeless: several days Meds Home Medications and Allergies Home Medications Medication Instructions Recorded Confirmed Type prenat.vits,dario,pxd-nqax-qgjzu 1 tab PO QDAY 11/22/21 07/03/22 History sertraline 100 mg tablet 100 mg PO QDAY 11/22/21 07/03/22 History calcium carbonate 200 mg calcium 200 mg PO BID 04/14/22 07/03/22 History (500 mg) chewable tablet (Tums) Allergies Allergy/AdvReac Type Severity Reaction Status Date / Time No Known Drug Allergies Allergy Verified 07/03/22 01:48 Results Labs Labs: Laboratory Results - last 24 hr 07/03/22 00:34 SARS-CoV-2 (PCR) Negative SARS-CoV-2 Vital Signs Vital Signs: Last Vital Signs Temp 98.1 F 07/03/22 02:10 Pulse 83 07/03/22 03:27 Resp 16 07/03/22 02:10 BP 119/70 07/03/22 03:27 Pulse Ox 100 07/03/22 03:21 Weight: 87.09 kg Height: 167.64 cm Anesthesia Procedures Epidural Insertion Patient Location: OB Start Time: 03:05 Stop Time: 03:35 Start Date: 07/03/22 Stop Date: 07/03/22 Reason for Block: procedure for pain Patient Position: sitting Performed By: Delonte Eric Preanesthetic Checklist: IV checked, site marked, risks and benefits discussed, monitors and equipment checked, pre-op evaluation, timeout performed and anesthesia consent Prep: chlorhexidine gluconate Monitoring: blood pressure monitoring, continuous pulse oximetry and heart rate Approach: midline Vertebral Space: lumbar (1-5) Epidural Technique: ADAM saline Needle Type: Tuohy needle Injection Technique: continuous catheter Needle gauge: 17 Needle Length (cm): 10 cm Needle Insertion Depth (cm): 5 Catheter Gauge: 19 Catheter Type: multi-orifice Test Dose Result: negative and lidocaine 1.5% with epinephrine 1 to 200,000
[2022-07-03] MEDS: CALCIUM CARBONATE 500 MG CHEW PO (04:15)
[2022-07-03] MEDS: OXYTOCIN 30 unit/500 ML in NS 30 UNIT/500 ML BAG 300 UNIT IVPB (07:00)
--- NOTE | 2022-07-03 08:07 | PM.OBPRCVD ---
Procedure Delivery date: 07/03/22 Procedure Done: only Intrapartal Events: None Delivery monitor: external FHT and external uterine Route of delivery: Episiotomy description: None Laceration description: None Estimated blood loss (mL): 150 Anesthesia type: Epidural Disposition: floor Complications: none Narrative: patient delivered a viable male neoante in MICHAEL position across intact perineum at 0750 am on 07/03/2022. No complications, no nuchal cord. Cord was clamped and cut after one minute delay, placed on maternal chest and spontaneously breathing at delivery. cord blood collected but not sent due to mother A + blood type. Placenta delivered spontaneously intact at 0757 am with 3VC. Perineum inspected, no lacerations, no repair. Minimal bleeding, EBL: 150 mL. Mother and remained in labor room (triage) stable for recovery. [place] Infant Gender: Male presentation: vertex Placental Delivery Description: Spontaneous Cord Description: 3 Vessels OB Vag Delivery Procedures Additional Procedures ECV: No Virtual Bridges Catheter Insertion: No NST: No D&C: No Laceration Repair: No Tubal Ligation : No Other: No
[2022-07-03] MEDS: IBUPROFEN 600 MG TABLET PO ×3 (10:45→22:57)
[2022-07-03] MEDS: ACETAMINOPHEN 500 MG TABLET 1000 MG PO ×2 (12:40→20:04)
[2022-07-03] MEDS: DOCUSATE SODIUM 100 MG CAPSULE PO (20:04)
[2022-07-03] MEDS: CYCLOBENZAPRINE HCL 10 MG TABLET 5 MG PO (21:05)
[2022-07-04] MEDS: ACETAMINOPHEN 500 MG TABLET 1000 MG PO (02:44)
[2022-07-04 02:51] VITALS: BP 119/83; PULSE 80; RESP 16; TEMP 36.6; O2SAT 97
[2022-07-04 06:45] LABS: Hemoglobin* 8.6 gm/dL (12.0-16.0)
[2022-07-04] MEDS: DOCUSATE SODIUM 100 MG CAPSULE PO (08:15)
[2022-07-04] MEDS: IBUPROFEN 600 MG TABLET PO ×2 (08:15→14:04)
[2022-07-04 08:16] VITALS: BP 123/87; PULSE 83; RESP 16; TEMP 36.8; O2SAT 98
--- NOTE | 2022-07-04 10:26 | PM.OBPNVD1 ---
OB - PN:Subj Subjective Date Seen: 07/04/22 Interval history: Patient S/P PPD # 1 rounding. Patient comments OB post-: no complaints, pain well controlled, tolerating diet, flatus present and other (Patient states her bilateral leg / hip pain is markedly improved overnight. She definitely feels better on her left side more so than on the right. Patient denies weakness in her leg or foot, just feels like she is very sore in her hips today. Denies ARELLANO, vision changes, SOB or CP. Minimal lochia) Narrative: Patient desires D/C home today. She has no questions, complaints or concerns prior to discharge home. OB - PN: Obj Exam Physical Exam: Vital signs: Temp Pulse Resp BP Pulse Ox O2 Del Method 98.2 F 83 16 123/87 98 07/04/22 08:16 07/04/22 08:16 07/04/22 08:16 07/04/22 08:16 07/04/22 08:16 07/04/22 08:16 Constitutional: Constitutional: no acute distress and cooperative Routine HEENT Exam: Head: Present atraumatic and normocephalic Routine Respiratory Exam: Respiratory: Present CTA bilaterally Routine Cardiovascular Exam: Cardiovascular: Present RRR Routine Abdominal Exam: Abdominal: Present soft Comments: nontender, no rebound, no guarding, fundus firm below umbilicus Routine Exam: Patient deferred: external exam and perineal exam Routine Extremities Exam: Extremities: Present full ROM, normal inspection, pulses intact and pedal edema (bilateral ) Comments: Patient with full range of motion, patient has a left hip shear with her right ankle 1 cm lower than the left ankle 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 Routine Skin Exam: Skin: Present dry, intact, normal color and warm Routine Neurological Exam: Neurological: Present alert and oriented X3 OB - PN: Obj Data Labs Labs: Laboratory Results - last 24 hr 07/04/22 06:36 Hgb 8.6 L OB - PN: A/P Vaginal Delivery Assessment and Plan (1) Vaginal delivery: Status: Acute (2) Leakage, amniotic fluid: Status: Resolved (3) Single live : Status: Acute Plan day: 1 Plan: routine care and discharge home Comments: Follow up outpatient in 6 weeks
--- NOTE | 2022-07-04 10:38 | PM.OBDSVD1 ---
DS: Providers Provider Date Seen: 07/04/22 Date of admission: 07/03/22 00:41 Primary care physician: Lolita Lloyd PA-C Admitting Clinician: Eli Madden CNM Attending Physician on discharge: Lorena Stanton DO DS: Diagnosis Discharge Diagnosis (1) Vaginal delivery: Status: Acute (2) Single live : Status: Acute Exam Const: Vital Signs, click to edit/add: Vital Signs - 24 hr 07/03/22 12:30 07/03/22 16:40 07/03/22 19:49 Temperature 98.1 F 98.2 F 98.4 F Pulse Rate [Blood Pressure Cuff] 83 88 90 Respiratory Rate 16 16 16 Blood Pressure [Le ft Arm] 113/75 119/77 106/72 Pulse Oximetry 96 Oxygen Delivery Me thod Room Air Room Air Room Air 07/03/22 23:40 07/04/22 02:51 07/04/22 08:16 Temperature 98 F 98 F 98.2 F Pulse Rate [Blood Pressure Cuff] 84 80 83 Respiratory Rate 16 16 16 Blood Pressure [Le ft Arm] 119/76 119/83 123/87 Pulse Oximetry 96 97 98 Oxygen Delivery Me thod Room Air Room Air Room Air Common normals: oriented x3 HENMT: Common normals: normocephalic and head/scalp atraumatic Head and scalp: normocephalic and atraumatic Resp: Common normals: normal respiratory effort, no retractions and clear to auscultation bilaterally Auscultation: clear to auscultation bilaterally Cardio: Common normals: regular rate and regular rhythm Rate: regular rate Rhythm: regular rhythm GI: Common normals: soft to palpation, non-tender and no masses Palpation: soft Other: fundus firm below umbilicus : Uterus: U/1 and firm Lochia: small Manual OB Exam: deferred Extremity: Common normals: full ROM and no clubbing, cyanosis or edema Neuro: Common normals: oriented x3, moves all extremities and no focal motor deficits Skin: Common normals: skin turgor normal General skin exam: turgor normal OB - DS: Summary Hospital Course Hospital Course: The patient is a 36 year old G3 P 3 at 40.0 weeks gestation that was admitted to the Center on 07/03/22 for labor / SROM. She had an uncomplicated vaginal delivery. She delivered a viable male . She is breast feeding. the patient has done well. Peripartum Data delivery method: Vaginal Laceration description: None Episiotomy description: None complications: none [place] Infant Gender: Male Discharge Plan: Home Time Spent with Patient Time attestation: Total time spent providing and/or coordinating discharge services: Time spent: Less than 30 minutes Discharge Plan Discharge Disposition: Home, Self-Care Date of Admission: 07/03/22 00:41 Attending Provider on Discharge: Lorena Stanton Primary Care Provider: Lolita Lloyd Condition: Stable Anticipated Discharge Date/Time: 07/04/22 10:44 Discharge Medications: New ibuprofen 600 mg Tablet 600 mg PO Q6H PRNQty: 30 0RF Continued sertraline 100 mg tablet 100 mg PO QDAY prenat.vits,dario,lns-mlrr-yeeek Tablet 1 tab PO QDAY ferrous sulfate 325 mg (65 mg iron) tablet See Rx Instructions .ROUTE .COMPLEX Qty: 30 0RF Dose Instruction: TAKE 1 TABLET BY MOUTH EVERY DAY Rx Instructions: TAKE 1 TABLET BY MOUTH EVERY DAY Discontinued calcium carbonate [Tums] 200 mg calcium (500 mg) tablet,chewable 200 mg PO BID acyclovir 400 mg tablet See Rx Instructions .ROUTE .COMPLEX Qty: 90 0RF Dose Instruction: TAKE 1 TABLET BY MOUTH THREE TIMES A DAY Rx Instructions: TAKE 1 TABLET BY MOUTH THREE TIMES A DAY Discharge Orders: Discharge Order (Routine); Ordered 07/04/22 Ordered By: Lorena Stanton Patient Education: Depression (GEN), Caring for Your Baby (GEN), Vaginal Delivery (GEN), Breast Care for the Mother (GEN) Activity Level: No strenuous activity and No Weight Bearing Activity Detail: Lifting restriction of 15-20 lbs, no tampons, no tub bathing, no sexual activity for 4-6 weeks , can drive after one week Discharge Diet: Regular Follow Up Appointments: Eli Madden CNM [Certified Nurse Storehouse Clerk] - None Forms: MyHealth Info Instructions Discharge Comments: follow up outpatient in 4-6 weeks
== END 2022-07-04 14:40 | disposition home or self-care (01) | DRG 560 ==
LOC: OB OUT 00:44 → OB 08:16
PROVIDERS: Obstetrics & Gynecology; Admitting Provider Advanced Practice Midwife; PCP Physician Assistant Medical; Visit Provider Advanced Practice Midwife
DX: O42.02 Full-term premature rupture of membranes, onset of labor within 24 hours of rupture (principal); Z3A.40 40 weeks gestation of pregnancy; Z37.0 Single live birth; M25.551 Pain in right hip; M25.552 Pain in left hip; F41.9 Anxiety disorder, unspecified; Z86.19 Personal history of other infectious and parasitic diseases
CPT/HCPCS: 01967; 36415; 85018; 87635; 99213; A9270; J2370; J2795; J7120

== ENCOUNTER 2022-08-19 09:00 | Outpatient (RCR) | payer BC, SELFPAY | END 2022-09-03 14:31 | disposition home or self-care (01) | PROVIDERS: PCP Physician Assistant Medical; Visit Provider Advanced Practice Midwife | DX: R10.30 Lower abdominal pain, unspecified (principal); R10.2 Pelvic and perineal pain; K59.00 Constipation, unspecified; Z51.89 Encounter for other specified aftercare | CPT/HCPCS: 97110; 97112; 97161; 97535 ==

== ENCOUNTER 2024-02-15 18:34 | Emergency (ER) | payer BC, SELFPAY ==
[2024-02-15] VITALS (12 sets, daily range): BP systolic 109–128; BP diastolic 78–94; PULSE 70–94; RESP 16–18; TEMP 36.6–36.8; O2SAT 95–100; BMI 27.4
--- NOTE | 2024-02-15 19:24 | ED_ITS ---
HPI - General Adult General Date Seen: 02/15/24 Chief complaint: Chest Pain Stated complaint: chest pain Time Seen by Provider: 02/15/24 19:24 History of Present Illness HPI narrative: 38-year-old female he with a history of SVT, previous cardiac ablation, abnormal Pap smear,, with history of anxiety with panic attacks (but today symptoms feel different), presenting to the ER today with chest pain radiating through to her back. Since about noon she has had intermittent nausea, dry mouth, sweatiness, chills. She has been healthy and well recently. No recent illnesses, cough, shortness of breath, or other episodes of chest pain. She notes that she had been on anxiety medicine for a long time but stopped it about 3 months ago because she was doing so well. She does not have any new stressors in her life. She started having symptoms around noon today. She was not do anything exertional but she was having lunch. She does feels a pressure feeling, ?not exactly a pain? in the center of her chest. It comes and goes in waves. It does not really radiate to her back. She had told the triage nurse that radiates to her back, but what she meant says she slept funny on her left shoulder of this weekend so had some left shoulder pain yesterday. Her shoulder pain actually got better when she went for a run yesterday. She had no trouble with running or any chest pain with exertion yesterday. She is not having any back pain or shoulder pain today. She got mildly sweaty this afternoon. She feels vaguely short of breath. No pleuritic component to the chest pain. No abdominal pain. No vomiting. No history of GERD or peptic ulcer disease. No history of gallstones. No recent travel. No swelling in her legs. No history of DVT or PE. She does not take control. She has a history of SVT in the past but says she says since her ablation she does not get such rapid heart rates anymore. Related Data Home Medications ?Medication ?Instructions ?Recorded ?Confirmed No Known Home Medications 02/15/24 02/15/24 Allergies Allergy/AdvReac Type Severity Reaction Status Date / Time No Known Drug Allergies Allergy Verified 02/15/24 21:45 [facility] Medical History (Updated 02/15/24 @ 22:42 by Julien Johnson MD) History of herpes genitalis ?Z86.19 - Personal history of other infectious and parasitic diseases (ICD- 10) History of oral contraceptive use ?Z92.0 - Personal history of contraception (ICD-10) Delivery normal ?O80 - Encounter for full-term uncomplicated delivery (ICD-10) History of abnormal cervical Pap smear ?Z87.42 - Personal history of other diseases of the female genital tract (ICD-10) Surgical History (Updated 12/13/21 @ 11:13 by Russell aVnegas) History of cardiac radiofrequency ablation (RFA) ?Z98.890 - Other specified postprocedural states (ICD-10) H/O cardiac radiofrequency ablation ?Z98.890 - Other specified postprocedural states (ICD-10) Family History (Updated 11/14/21 @ 12:15 by Breonna Sherman) Maternal Grandmother Bladder cancer Breast cancer Cervical cancer Mother High blood pressure Father Heart disease Maternal Grandfather Diabetes Paternal Grandfather Diabetes Paternal Grandmother Diabetes Social History Smoking Status: Former smoker Do you use any of these nicotine containing products: None Second hand tobacco smoke exposure: No How often do you have a drink containing alcohol: 2-3 times a week AUDIT-C Alcohol total score: 3 Non-prescribed substance use: denies use Little interest or pleasure in doing things: not at all Feeling down, depressed, or hopeless: not at all Exam Narrative: Exam Narrative: Constitutional: Appears well-developed and well-nourished. Alert. Conversant. Non toxic. HENT: Head: Atraumatic. Nose: Nose normal. Mouth/Throat: Oral mucosa is clear and moist. no trismus. Pharynx normal. Tonsils symmetric. Eyes: Conjunctivae normal. EOM normal. Pupils equal, round, and reactive to light. No scleral icterus. Neck: Normal range of motion. Neck supple. No tracheal deviation present. No JVD Cardiovascular: Normal rate, regular rhythm. No gallop. No friction rub. No murmur heard. Symmetric radial and posterior tibial artery pulses Pulmonary/Chest: Effort normal. No stridor. No respiratory distress. No wheezes. No rales. No rhonchi . No tenderness. Abdominal: Soft. Bowel sounds normal. No distension. No mass. No tenderness. No rebound. No guarding. No Alejandre sign Musculoskeletal: RUE: Normal range of motion. No tenderness. No deformity LUE: Normal range of motion. No tenderness. No deformity RLE: Normal range of motion. No edema. No tenderness. No deformity LLE: Normal range of motion. No edema. No tenderness. No deformity Neurological: Alert and oriented to person, place, and time. Normal strength. CN II-VII intact. No sensory deficit. GCS eye subscore is 4. GCS verbal subscore is 5. GCS motor subscore is 6. Normal coordination Skin: Skin is warm and dry. No rash noted. No pallor. Normal capillary refill. Psychiatric: Normal mood. Normal affect. She is very polite. When discussing her family history (father of an NH at age 42) she breathes he becomes choked up in tearful. She says she has a history of anxiety and panic and wonders if that might be would happening today. However today symptoms feel different than her previous panic attacks. Const: Vital Signs, click to edit/add: Vital Signs - 24 hr 02/15/24 18:39 02/15/24 18:58 02/15/24 19:00 Temperature 97.9 F Pulse Rate 94 84 Pulse Rate [Pulse Oximeter] 81 Respiratory Rate 18 Blood Pressure Blood Pressure [Ri ght Upper Arm] 128/88 Pulse Oximetry 98 95 100 Oxygen Delivery Me thod Room Air 02/15/24 19:01 02/15/24 19:15 02/15/24 19:31 Temperature Pulse Rate 85 80 Pulse Rate [Pulse Oximeter] Respiratory Rate Blood Pressure 118/85 119/94 H Blood Pressure [Ri ght Upper Arm] Pulse Oximetry 100 99 Oxygen Delivery Me thod 02/15/24 19:41 02/15/24 19:46 02/15/24 20:00 Temperature Pulse Rate 82 82 77 Pulse Rate [Pulse Oximeter] Respiratory Rate Blood Pressure Blood Pressure [Ri ght Upper Arm] Pulse Oximetry 99 97 98 Oxygen Delivery Me thod 02/15/24 20:01 02/15/24 20:15 Temperature Pulse Rate 80 76 Pulse Rate [Pulse Oximeter] Respiratory Rate Blood Pressure 109/83 Blood Pressure [Ri ght Upper Arm] Pulse Oximetry 97 97 Oxygen Delivery Me thod Course Vital Signs Vital signs: Initial Vital Signs Temperature 97.9 F 02/15/24 18:39 Temperature Source Temporal Artery Scan 02/15/24 18:39 Pulse Rate 81 02/15/24 18:39 Respiratory Rate 18 02/15/24 18:39 Blood Pressure 128/88 02/15/24 18:39 Blood Pressure Mean 101 02/15/24 18:39 Blood Pressure Position Sitting 02/15/24 18:39 Pulse Oximetry 98 02/15/24 18:39 Oxygen Delivery Method Room Air 02/15/24 18:39 Vital Signs Temperature 97.9 F 02/15/24 18:39 Pulse Rate 81 02/15/24 18:39 Respiratory Rate 18 02/15/24 18:39 Blood Pressure 128/88 02/15/24 18:39 Pulse Oximetry 98 02/15/24 18:39 Oxygen Delivery Method Room Air 02/15/24 18:39 Temperature 97.9 F 02/15/24 18:39 Pulse Rate 76 02/15/24 20:15 Respiratory Rate 18 02/15/24 18:39 Blood Pressure 109/83 02/15/24 20:01 Pulse Oximetry 97 02/15/24 20:15 Oxygen Delivery Method Room Air 02/15/24 18:39 Medications Administered Medications: Discontinued Medications Generic Name Dose Route Start Last Admin Trade Name Freq PRN Reason Stop Dose Admin Aspirin 162 mg 02/15/24 19:41 02/15/24 19:47 Aspirin 81 Mg Tab.Chew PO 02/15/24 19:42 162 mg ONCE ONE Administration Lorazepam 1 mg 02/15/24 19:41 02/15/24 19:47 Lorazepam 1 Mg Tablet PO 02/15/24 19:42 1 mg ONCE ONE Administration Medical Decision Making [facility] Narrative Medical decision making narrative: This patient presents to the ER today for evaluation of chest pain ongoing since. Differential was broad. No evidence of palpitations, syncope or other cardiac dysrhythmia. We considered possible ACS, however workup with EKG and troponin is negative. HEART score is 1. Only risk factor would be family history of premature coronary disease (father, age 42). Given time since onset of symptoms, I do not think the patient needs to be admitted for further sets of enzymes. EKG shows no evidence for pericarditis. Clinical presentation not suggestive of myocarditis. Chest x-ray shows no evidence for pneumonia, pneumothorax, pulmonary edema, pleural effusion, rib fracture, cardiomegaly. Mediastinum is normal on the x-ray. The patient has no ripping or tearing pain through to the back and has symmetric pulses on exam, no other acute neuro findings so I doubt aortic dissection. Risk of radiation and contrast exposure would outweigh the benefit of CT angiogram. We considered PE for this patient. D-dimer is abnormal. CT PAs obtained and fortunately is normal. No wheezing or bronchospasm to suggest COPD/asthma. No signs of chest wall cellulitis, shingles, injury. She has suspect that her pain might be due to anxiety. She did have relief after Ativan given here in the ER, which could suggest possible anxiety as a cause. Pain began around lunchtime which could suggest possible esophageal reflux or spasm as a cause. She will follow-up with her doctor for recheck. With reasonable clinical confidence, I think the patient is safe for outpatient follow up. Discussed results with the patient and her . They are in agreement with the plan for discharge and eager to go. Discussed return precautions. Questions answered. Patient voices comfort with the plan. Lab Data Labs: Lab Results 02/15/24 02/15/24 Range/Units 19:30 19:33 WBC 6.82 (4.50-11.00) K/uL RBC 4.42 (4.00-5.20) m/uL Hgb 13.4 (12.0-16.0) gm/dL Hct 40.2 (33.0-51.0) % MCV 91 (80-100) fL MCH 30 (26-34) pg MCHC 33 (32-36) gm/dL RDW Coeff of Wen 12.4 (11.5-15.5) % Plt Count 262 (140-440) K/uL Neut % (Auto) 64.5 (42.0-72.0) % Lymph % (Auto) 25.4 (20-44) % [place] % (Auto) 8.2 (0.0-11.0) % Eos % (Auto) 1.5 (0.0-7.0) % Baso % (Auto) 0.3 (0.0-3.0) % Neut # (Auto) 4.40 (1.7-7.0) K/uL Lymph # (Auto) 1.73 (0.90-2.90) K/uL [place] # (Auto) 0.60 (0.00-0.90) K/UL Eos # (Auto) 0.10 (0.00-0.50) K/uL Baso # (Auto) 0.02 (0.00-0.30) K/uL Abs Immat Gran (auto) 0.01 (0.00-0.30) K/uL Imm/Tot Granulo (auto) 0.1 % D-Dimer Quant (PE/DVT) 0.51 H (0.00-0.50) ug/ml Sodium 136 (135-149) mmol/L Potassium 3.8 (3.6-5.1) mmol/L Chloride 108 (96-114) mmol/L Carbon Dioxide 23 (20-32) mmol/L Anion Gap 5 L (7-15) mEq/L BUN 9 (5-24) mg/dL Creatinine 0.8 (0.5-1.5) mg/dL Estimated Creat Clear 91.01 Estimated GFR 98 ml/min Glucose 108 (60-115) mg/dL Calcium 9.2 (8.4-10.6) mg/dL Total Bilirubin 0.7 (0.1-1.5) mg/dL AST 21 (12-35) U/L ALT 13 (4-35) U/L Alkaline Phosphatase 59 (40-150) U/L Total Protein 7.0 (6.0-8.3) g/dL Albumin 4.5 (3.3-5.0) g/dL Lipase 93 (23-300) U/L HCG, Qual Negative (Negative) POC Troponin I 0.00 L (0.01-0.04) ng/ml Imaging Data CT scan - chest: Attestation: I have reviewed the pertinent imaging results. Radiologist's impression: IMPRESSION: 1. No CT evidence of acute pulmonary emboli seen. ECG Data Attestation: I personally reviewed and interpreted this ECG as follows: Interpretation: Normal sinus rhythm Rate: 95 DC: 114 QRS axis: normal ST segment/T wave: no ST elevation or depression QTc: 422 Discharge Plan Discharge Clinical Impression: Chest pain Patient Disposition: Home, Self-Care Condition: Stable Instructions: Chest Pain (DC) Additional Instructions: As we discussed, so far your workup looks reassuring. Please monitor your symptoms carefully and if you have more episodes of chest pain or any other problems, come back to the ER to be rechecked. Please recheck with your regular doctor within the next 2-3 days. Prescriptions: No Action No Known Home Medications Follow Up/Referrals: Lolita Lloyd PA-C [Primary Care Provider] - Stand Alone Forms: [employer] Info Instructions
--- NOTE | 2024-02-15 19:25 | CRLHL7_ITS ---
For Patients: As a result of the Cures Act, medical imaging exams and procedure reports are released immediately into your electronic medical record. You may view this report before your referring provider. If you have questions, please contact your health care provider. INDICATION: Chest pain, radiates to back TECHNIQUE: Chest radiograph 2 views COMPARISON: None FINDINGS: Mediastinum: The mediastinum is normal in appearance. The heart silhouette is normal in size and morphology. Lung: Both lungs are unremarkable in appearance. No sign of pleural effusion seen. No pneumothorax is identified. Bone and Soft tissue: Unremarkable for age. IMPRESSION: 1. No acute cardiopulmonary disease is seen. Dictated by: Wilfred Schulz MD @ 02/15/2024 21:26:03 (Electronically Signed)
[2024-02-15 19:45] LABS: Basophils Absolute Auto 0.02 K/uL (0.00-0.30); Basophils Percent Auto 0.3 % (0.0-3.0); Eosinophils Percent Auto 1.5 % (0.0-7.0); Hematocrit 40.2 % (33.0-51.0); Hemoglobin* 13.4 gm/dL (12.0-16.0); Immature Granulocytes Abs Auto 0.01 K/uL (0.00-0.30); Immature Granulocytes Pct Auto 0.1 %; Lymphocytes Absolute Auto 1.73 K/uL (0.90-2.90); Lymphocytes Percent Auto 25.4 % (20-44); Mean Corpuscular HGB Conc 33 gm/dL (32-36); Mean Corpuscular Hemoglobin 30 pg (26-34); Mean Corpuscular Volume 91 fL (80-100); Monocytes Percent Auto 8.2 % (0.0-11.0); Neutrophils Percent Auto 64.5 % (42.0-72.0); Platelet Count* 262 K/uL (140-440); RDW Coefficient of Variation % 12.4 % (11.5-15.5); Red Blood Count 4.42 m/uL (4.00-5.20); White Blood Count* 6.82 K/uL (4.50-11.00)
[2024-02-15] MEDS: LORazepam 1 MG TABLET PO (19:47)
[2024-02-15] MEDS: ASPIRIN 81 MG TAB.CHEW 162 MG PO (19:47)
--- OUTSIDE RECORDS SUMMARY | 2024-02-15 19:49 | XMS_ITS | Encounter Summary ---
Author Organization [facility] Address [address] [place] [id number] Care Team Providers Care Welt Drawer Name Role Phone Sarah Montgomery PA-C Primary Care Pr ovider Sarah Montgomery PA-C Unavailable Sarah Montgomery PA-C Unavailable Encounter Details Date Type Department Care Team (Late st Contact Info) Description 11/18/2017 [facility] [address] [place] [address] Whitney Zee RN Social History Tobacco Use Types Packs/Day Years Used Date Smoking Tobacco: Former Smokeless Tobacco: Never Alcohol Use Standard Drinks/Week Comments Yes 0 (1 standard drink = 0.6 oz pur e alcohol) weekends Sex and Gender Information Value Date Recorded Sex Assigned at Not on file Gender Identity Not on file Sexual Orientation Not on file documented as of this encounter Plan of Treatment Not on file documented as of this encounter Visit Diagnoses Not on filedocumented in this encounter Additional Health Concerns Infection Onset Date Last Indicated Resolved Time Rule Out COVID-19 12/01/2020 12/01/2020 12/02/2020 11:20 AM CDT Assessment Noted Time PHQ-9 Depression Total Score: 1 09/23/19 18 7:43 AM CDT documented as of this encounter Care Teams Welt Drawer Relationship Specialty Start Date End Date Sarah Montgomery PA-C [address] [place] [address] PCP - General Family Practice 10/21/11 Sarah Montgomery PA-C [address] [place] [address] PCP - Assigned PCP 03/15/17 07/27/18 Sarah Montgomery PA-C [address] [place] [address] Assigned PCP 03/15/17 10/17/20 documented as of this encounter
--- OUTSIDE RECORDS SUMMARY | 2024-02-15 19:49 | XMS_ITS | Clinical Summary ---
Author Organization [facility] Address [place], [place] [address] Care Team Providers Care Diesel Crane Operator Name Role Phone Clinic, No Pcp Or Primary Care Provider Unavaila ble Pcp, No Unavailable Unavailable Allergies No known active allergies Medications Medication Sig Dispensed Refills Start Date End Date Status Fish Oil-[place]-3 Fatty Acids 300-500 mg cap Take 1 Capsule by mouth once daily. Active hydrOXYzine HCL (ATARAX) 25 mg tabletIndications:Ins omnia, unspecified type Take 1 Tablet (25 mg) by mouth at bedtime if needed (insomnia). 30 Tablet 08/20/2023 Active sertraline (ZOLOFT) 100 mg tabletIndications:Mod erate episode of recurrent major depressive disorder (HC),Generalized anxiety disorder Take 1.5 Tablets (150 mg) by mouth once daily. 45 Tablet 08/20/2023 Active Active Problems Problem Noted Date Diagnosed Date RLS (restless legs syndrome) 08/23/2023 Moderate episode of recurrent major depressive d isorder 08/23/2023 Generalized anxiety disorder 08/23/2023 Paroxysmal SVT (supraventricular tachycardia) Overview (08/19/2023): History of an ablation. Immunizations Name Administration Dates Next Due DTaP 12/12/1991, 0,08/23/1988,02/23/1988, Hepatitis B (Peds) 11/02/2000,12/19/1999, 000 Human Papilloma Virus Vaccine 06/19/2008 Inactivated Polio Vaccine 12/12/1991,05/25/1989, 02/23/1988,1987 Influenza, IIV4 07/09/2016 MMR 07/09/2016,11/18/1999,01/23/1989 Td (Age >=7 Years) 11/18/1999 Tdap 04/14/2016,12/13/2012 Social History Tobacco Use Types Packs/Day Years Used Date Smoking Tobacco: Former Cigarettes Smokeless Tobacco: Never Tobacco Cessation:Counseling Given: Not Answered Comments:On & Off Alcohol Use Standard Drinks/Week Comments Yes 1.7 (1 standard drink = 0.6 oz p ure alcohol) PHQ-2 Answer Date Recorded PHQ-2 TOTAL SCORE 5 08/20/2023 Social Connections Answer Date Recorded Frequency of Communication with Friends and Fami ly Not on file 09/19/2021 Sex and Gender Information Value Date Recorded Sex Assigned at Not on file Gender Identity Not on file Sexual Orientation Not on file Obstetrics History Last Filed Vital Signs Vital Sign Reading Time Taken Comments Blood Pressure 110/60 08/20/2023 3:30 PM CDT Pulse 102 08/20/2023 3:30 PM CDT Temperature 37.1 ??C (98.7 ??F) 09/19/2021 11:02 AM C DT Respiratory Rate - - Oxygen Saturation 97% 09/19/2021 11:02 AM CDT Inhaled Oxygen Concentration - - Weight 82.6 kg (182 lb) 08/20/2023 3:30 PM CDT Height - - Body Mass Index - - Plan of Treatment Health Maintenance Due Date Last Done Comments HIV for age 15-65 10/30/2002 BMI (ht and wt on same day) for age 18+ 10/30/2005 Hepatitis C screening for ag e 18-79 10/30/2005 Pap test for age 21-65 08/18/2021 9, 08/16/2018 COVID-19 vaccine series (2022- season) 2024 Influenza for age 9-49 01/24/2024 07/09/2016 Depression screening for age 12+ 08/20/2024 08/21/2023, 08/20/2023 Tetanus booster 04/14/2026 04/14/2016, 12/13/2012, 11/18/1999 Tdap Completed 04/14/2016, 12/13/2012 Pneumococcal series for age 6-64 Aged Out No longer eligible b ased on patient's age to complete this topic Procedures Procedure Name Priority Date/Time Associated Diagnosis Comments HPV HIGH RISK Routine 08/18/2018 9:02 AM CDT from Last 3 Months or Most Recently Relevant to Health Maintenance Results * HPV HIGH RISK (08/18/2018 9:02 AM CDT) HPV RESULTS Negative Negative 08/19/2018 3:39 PM CDT [facility] Comment: HPV types 16, 18, 31, 33, 35, 39, 45, 51, 52, 56, 58, 59, 66 and 68 DNA were undetectable or below the pre-set threshold. ?? Other (Cervical/Vagina l) 08/18/2018 9:02 AM CDT 08/18/2018 9:02 AM CDT Narrative [facility] [employer] [facility] - 08/19/2018 3:39 PM CDT Methodology: ??Tita Kassi 4800 HPV Test Anjana Hogue NP MICROBIOLOGY [facility] [address] [place] [address], from Last 3 Months or Most Recently Relevant to Health Maintenance Care Teams Diesel Crane Operator Relationship Specialty Start Date End Date Clinic, No Pcp Or . PCP - General 09/18/21 Pcp, No . 09/18/21
--- OUTSIDE RECORDS SUMMARY | 2024-02-15 19:49 | XMS_ITS | Referral Summary ---
Author Organization [facility] Address [address] [place] [id number] Care Team Providers Care Satin Finisher Name Role Phone Sarah Montgomery PA-C Primary Care Pr ovider Allergies Active Allergy Reactions Criticality Noted Date Comments Seasonal Allergies 11/16/2014 Medications Medication Sig Dispensed Refills Start Date End Date Status [place]-3 Fatty Acids (FISH OIL) 500 MG CAPS Active Active Problems Problem Noted Date Diagnosed Date Paroxysmal supraventricular tachycardia (H24) Constipation, unspecified constipation type 08/23 Vitamin D deficiency 10/06/2014 Anxiety 07/12/2014 HSV (herpes simplex virus) infection 02/15/2014 Papanicolaou smear of cervix with low grade squamous intraepithelial lesion (LGSIL) 10/27/2011 Overview: 06/02 HSIL 08/31 colp bx neg, pt lost to f/u 09/2011 Pap LSIL, 01/19/12 colp:ELZBIETA I. Plan pap in 6 & 12 months or HPV testing in 1 yr. In reminders. 06/30/12 DX ASCUS pap, neg HPV, pt. Is to have a repeat pap in six months. 12/13/12:DX NL pap, neg HPV. 02/15/14 Dx pap NIL. HPV Neg. Plan: pap in 3 years CARDIOVASCULAR SCREENING; LDL GOAL LESS THAN 160 03/24/2010 Resolved Problems Problem Noted Date Diagnosed Date Resolved Date Indication for care in labor or delivery 07/07/2016 09/23/2017 state 07/07/2016 09/23/2017 Encounter for triage in patient 05/17/2016 09/23/2017 Encounter for supervision of normal first 04/14/2016 09/23/2017 Encounter for supervision of normal first , unspecified trimester [Z34.00] 12/11/2015 04/14/2016 Depression with anxiety 06/01/201408/24 Encounter for counseling 02/15/2014 Overview: Problem list name updated by automated process. Provider to review Immunizations Name Administration Dates Next Due HPV 06/19/2008 Influenza Vaccine >6 months,quad, PF 07/09/2016 MMR 07/09/2016 TDAP Vaccine (Boostrix) 04/14/2016,12/13/2012 Social History Tobacco Use Types Packs/Day Years Used Date Smoking Tobacco: Former Smokeless Tobacco: Never Tobacco Cessation:Counseling Given: No Comments:quit about 2013 Alcohol Use Standard Drinks/Week Comments Yes 0 (1 standard drink = 0.6 oz pur e alcohol) weekends-not more than 4 PHQ-2 Answer Date Recorded PHQ-2 Score 0 06/01/2018 Adolescent Education Answer Date Record ed Getting School Help Needed Not on file 02/15 Sex and Gender Information Value Date Recorded Sex Assigned at Not on file Gender Identity Not on file Sexual Orientation Not on file Last Filed Vital Signs Vital Sign Reading Time Taken Comments Blood Pressure 110/60 12/01/2020 1:33 PM CDT Pulse 92 12/01/2020 1:33 PM CDT Temperature 36.8 ??C (98.3 ??F) 12/01/2020 1:33 PM CD T Respiratory Rate 16 04/08/2018 3:00 PM DENTAL TECHNICIAN METAL Oxygen Saturation 97% 12/01/2020 1:33 PM CDT Inhaled Oxygen Concentration - - Weight 80.3 kg (177 lb) 12/01/2020 1:33 PM CDT Height 167.6 cm (5' 6) 05/05/2018 12:36 PM DENTAL TECHNICIAN METAL Body Mass Index 28.57 05/05/2018 12:36 PM DENTAL TECHNICIAN METAL Plan of Treatment Not on file Care Teams Satin Finisher Relationship Specialty Start Date End Date Sarah Montgomery PA-C [address] [place], [place] [id number] PCP - General Family Practice 10/21/11"
--- OUTSIDE RECORDS SUMMARY | 2024-02-15 19:49 | XMS_ITS | Clinical Summary ---
Author Organization [facility] Address [address] [place] [address] Care Team Providers Care Credit Administration Officer Name Role Phone Sarah Montgomery PA-C Primary Care Pr ovider Allergies Active Allergy Reactions Criticality Noted Date Comments Seasonal Allergies 11/16/2014 Medications Medication Sig Dispensed Refills Start Date End Date Status [place]-3 Fatty Acids (FISH OIL) 500 MG CAPS [...] 07/09/2016 MMR 07/09/2016 TDAP Vaccine (Boostrix) 04/14/2016,12/13/2012 Family History Medical History Relation Comments Depression Father Heart Disease Father [place] at age 42 Diabetes Maternal Grandfather Breast Cancer Maternal Grandmother dx at age 6 2 Cancer Maternal Grandmother cervical an d uterine Diabetes Paternal Grandfather Cancer - colorectal No family hx of Relation Status Comments Brother 1 Alive Brother 2 Alive 2 step brothers (no relation) Father (Age 43) [place] Maternal Grandfather Alive Maternal Grandmother Alive Mother [...] T Respiratory Rate 16 04/08/2018 3:00 PM PARTS COORDINATOR Oxygen Saturation 97% 12/01/2020 1:33 PM CDT Inhaled Oxygen Concentration - - Weight 80.3 kg (177 lb) 12/01/2020 1:33 PM CDT Height 167.6 cm (5' 6) 05/05/2018 12:36 PM PARTS COORDINATOR Body Mass Index 28.57 05/05/2018 12:36 PM PARTS COORDINATOR Plan of Treatment Not on file Care Teams Credit Administration Officer Relationship Specialty Start Date End Date Sarah Montgomery PA-C [address] [place] [address] PCP - General Family Practice 10/21/11
--- OUTSIDE RECORDS SUMMARY | 2024-02-15 19:49 | XMS_ITS | Encounter Summary ---
Author Organization [facility] Address [address] [place] [id number] Care Team Providers Care System Consultant Name Role Phone Sarah Montgomery PA-C Primary Care Pr ovider Sarah Montgomery PA-C Unavailable Sarah Montgomery PA-C Unavailable Encounter Details Date Type Department Care Team (Late st Contact Info) Description 09/23/2017 [facility] Medical Advice [address] [place] [id number] Bushra Wong RN Social History Tobacco Use Types Packs/Day Years Used Date Smoking Tobacco: Former Smokeless Tobacco: Never Alcohol Use Standard Drinks/Week Comments No 0 (1 standard drink = 0.6 oz pur e alcohol) Sex and Gender Information Value Date Recorded [...] as of this encounter Care Teams System Consultant Relationship Specialty Start Date End Date Sarah Montgomery PA-C [id number] [place] [address] PCP - General Family Practice 10/21/11 Sarah Montgomery PA-C [id number] [place] [address] PCP - Assigned PCP 03/15/17 07/27/18 Sarah Montgomery PA-C [id number] [place] [address] Assigned PCP 03/15/17 10/17/20 documented as of this encounter
[2024-02-15 19:52] LABS: Slide Review Reflex No
[2024-02-15 19:59] LABS: Albumin* 4.5 g/dL (3.3-5.0)
[2024-02-15 20:00] LABS: Chloride* 108 mmol/L (96-114); Potassium* 3.8 mmol/L (3.6-5.1); Sodium* 136 mmol/L (135-149)
[2024-02-15 20:02] LABS: Alkaline Phosphatase* 59 U/L (40-150); Anion Gap 5 mEq/L (7-15); Aspartate Amino Transferase* 21 U/L (12-35); Bilirubin Total* 0.7 mg/dL (0.1-1.5); Carbon Dioxide* 23 mmol/L (20-32); Creatinine* 0.8 mg/dL (0.5-1.5); Est. Creatinine Clearance* 91.01; Estimated Glomerular Filt Rate 98 ml/min
[2024-02-15 20:03] LABS: Alanine Aminotransferase* 13 U/L (4-35); Blood Urea Nitrogen* 9 mg/dL (5-24); Calcium* 9.2 mg/dL (8.4-10.6); Glucose* 108 mg/dL (60-115); Lipase* 93 U/L (23-300)
[2024-02-15 20:04] LABS: D Dimer Quantitative* 0.51 ug/ml (0.00-0.50)
[2024-02-15 20:21] LABS: HCG Qualitative Serum* Negative (Negative)
--- NOTE | 2024-02-15 21:00 | CRLHL7_ITS ---
For Patients: As a result of the Century Cures Act, medical imaging exams and procedure reports are released immediately into your electronic medical record. You may view this report before your referring provider. If you have questions, please contact your health care provider. INDICATION: Chest pain, elevated D-dimer TECHNIQUE: CT chest with i.v. contrast using pulmonary angiographic technique. Coronal and sagittal reformats were obtained. CONTRAST: 95 mL Isovue 370 COMPARISON: None FINDINGS: Cardiovascular: The pulmonary arteries are unremarkable in enhancement with no evidence of acute pulmonary embolism. The heart has an unremarkable appearance and size. No sign of aneurysm in the thoracic aorta. Mediastinum: No mass or adenopathy seen. Lung: Both lungs are unremarkable in appearance. Pleura and pericardium: No sign of pleural effusion seen. No significant pericardial effusion is present. Chest wall and axilla: No mass or adenopathy seen. Bone: Unremarkable for age. Upper abdomen: Unremarkable. IMPRESSION: 1. No CT evidence of acute pulmonary emboli seen. Dictated by Wilfred Schulz MD @ 02/15/2024 10:29:25 PM Please note that all CT scans at this facility use dose modulation, iterative reconstruction, and/or weight-based dosing when appropriate to reduce radiation dose to as low as reasonably achievable. Dictated by: Wilfred Schulz MD @ 02/15/2024 22:30:54 (Electronically Signed)
== END 2024-02-15 22:50 | disposition home or self-care (01) ==
PROVIDERS: Emergency Provider Emergency Medicine; PCP Physician Assistant Medical
DX: R07.9 Chest pain, unspecified (principal)
CPT/HCPCS: 36415; 71046; 71275; 80053; 83690; 84484; 84703; 85025; 85379; 99283; 99284; 99285; A9270; Q9967